=== PATIENT | male | born 1950 | race Caucasian/White ===

== ENCOUNTER 2018-07-09 12:18 | Inpatient (IN) | payer MEDICARE, SELFPAY ==
[2018-06-04 07:30] VITALS: BMI 25.2
[2018-07-09] VITALS (9 sets, daily range): BP systolic 121–169; BP diastolic 72–108; PULSE 68–105; RESP 18–19; TEMP 36–36.9; O2SAT 92–96; BMI 25.5; BMI 24.7
--- NOTE | 2018-07-09 12:34 | EKG12_ITS ---
Test Reason : CP ADMIT Blood Pressure : / mmHG Vent. Rate : 072 BPM Atrial Rate : 072 BPM P-R Int : 162 ms QRS Dur : 100 ms QT Int : 404 ms P-R-T Axes : 076 064 270 degrees QTc Int : 442 ms Normal sinus rhythm with sinus arrhythmia Left ventricular hypertrophy with repolarization abnormality Abnormal ECG When compared with ECG of 09-JUL-2018 12:35, MANUAL COMPARISON REQUIRED, DATA IS UNCONFIRMED Confirmed by LYNN BOBBY, LOKESH ([id number]), web content editor MARCIN THOMPSON ([id number]) on 07/13/2018 2:50:11 PM Referred By: My Curry Confirmed By:LOKESH BAILEY MD
[2018-07-09] MEDS: Aspirin 81 MG TAB.CHEW 324 MG PO (12:37)
--- NOTE | 2018-07-09 12:37 | RAD_ITS ---
STUDY: X-RAY CHEST REASON FOR EXAM: Male, 68 years old. Two-year history of shortness of breath. History of STEMI. TECHNIQUE: Single AP portable view of the chest. COMPARISON: Comparison is made with prior study dated May 31, 2017. FINDINGS: EKG electrodes are seen. Hyperinflation. There is no demonstrated pleural abnormality. Normal size heart. Normal mediastinum and earl. Normal visualized pulmonary arteries. Normal visualized aortic arch and descending thoracic aorta. Normal visualized thoracic spine. Status post ORIF of a left mid clavicular fracture. There is no demonstrated abnormality of the visualized soft tissue structures of the upper abdomen. RAD/Chest 1 View (Portable) IMPRESSION: Hyperinflation. Electronically Signed: Noel Claudio, at 13:14 EST , Service support ,
[2018-07-09 12:46] LABS: Absolute Lymphocyte Count 1.74 X10^3/ul (0.83-4.51); Absolute Neutrophil Count 9.3 X10^3/uL (2.0-7.7); Basophil# 0.03 X10^3/uL; Basophil% 0.3 % (0-1); Eosinophil# 0.01 X10^3/uL; Eosinophils% 0.1 % (0-5); Hematocrit 48.3 % (40-54); Hemoglobin 15.8 g/dl (13.0-16.5); Lymphocyte # 1.74 X10^3/ul (4.0); Lymphocyte % 14.5 % (19-41); Mean Corp Hgb Conc 32.7 g/gl (32-36); Mean Corpuscular Volume 91.7 fL (80-94); Mean Platelet Vol. 10.6 fl (6.2-12.0); Monocyte# 0.84 X10^3/uL; Neutrophil # 9.32 X10^3/uL (2.7-7.7); Neutrophil % 77.8 % (47-70); Platelet Count 206 K/mm3 (150-450); RBC Distribution Width CV 14.4 % (11.6-14.6); RBC Distribution Width SD 48.2 fl (35.1-43.9); Red Blood Count 5.27 M/mm3 (4.6-6.2)
[2018-07-09 12:49] LABS: POSITIVE COUNT NO; POSITIVE DIFFERENTIAL NO; POSITIVE MORPHOLOGY NO
[2018-07-09 13:12] LABS: Anion Gap 9 (5-15); BUN 11 mg/dL (7-18); BUN/Creat Ratio 10.4 RATIO (10-20); Calcium,Total 8.9 mg/dL (8.5-10.1); Chloride 107 mmol/L (98-107); Creatinine, Serum 1.06 mg/dL (0.70-1.30); EST Glomerular Filtration Rate 74 mL/min (>60); Est Glom Filt Rate - Afr Amer 89 mL/min (>60); Estimated Creatinine Clearance 68.87 ml/min; Glucose 78 mg/dL (74-106); Potassium 3.6 mmol/L (3.5-5.1); Sodium Level 143 mmol/L (136-145)
--- NOTE | 2018-07-09 14:46 | PCM.HP.STD ---
Problem List (1) Chest pain Status: Acute Qualifiers: Chest pain type: unspecified Qualified Code(s): R07.9 - Chest pain, unspecified (2) COPD (chronic obstructive pulmonary disease) Status: Suspected Qualifiers: COPD type: unspecified COPD Qualified Code(s): J44.9 - Chronic obstructive pulmonary disease, unspecified (3) Hypertension Status: Chronic Qualifiers: Hypertension type: essential hypertension Qualified Code(s): I10 - Essential (primary) hypertension (4) Tobacco abuse Status: Chronic History of Present Illness Date of Admission: 07/09/18 Chief Complaint: Chest pain, cough, dyspnea The patient is a 68 y/o M w/ PMHx: Chronic COPD Suspected, HTN, Hx UT, JESSICA not on treatment, Tobacco use who presents to the [facility] ED on 07/09/18 with history of nearing 2 months of sharp, stabbing, left-sided chest discomfort primarily into the shoulder and left upper extremity radiation as well rated 8-10 out of 10 when occurring with associated dyspnea primarily when he exerts himself with improvement with rest with resolution after 5-10 minutes with denied nausea, emesis, diaphoresis. He does state that he recently saw his orthopedic surgeon approximately 3 weeks prior at [facility] as he had a left collarbone trauma and has a plate and states that his surgeon felt this was likely nerve associated. Patient presented to his PCP for evaluation and EKG in office w/ inferior ST depression and thus referred to the ED as new since 08/2017. Work-up in the ED included T 96.8, HR 105, BP 169/108, RR 19, 95% on RA-->92% on 2L NC, CBC w/ WBC 12, Hgb 15.8, Plts 206 with L shift, unremarkable BMP, trop 0.038, CXR with chronic changes, EKG similar to PCP office without acute evidence of ischemia. In the ED patient administered ASA. Past Medical History Past Medical History (Chronic Problems): Chronic Problems (Last Reviewed 06/04/18 @ 07:31 by Candice Holguin) Tobacco dependence in remission (Chronic) Hypertension (Chronic) Tobacco abuse (Chronic) Medical History: Medical History (Last Reviewed 06/04/18 @ 07:31 by Candice Holguin) CAP (community acquired pneumonia) (Resolved) J18.9 Tobacco dependence in remission (Chronic) F17.201 COPD (chronic obstructive pulmonary disease) (Suspected) J44.9 Hypertension (Chronic) I10 Tobacco abuse (Chronic) Z72.0 Allergies bee venom protein (honey bee) Allergy (Verified 07/09/18 12:22) Anaphylaxis lactose Adverse Reaction (Verified 07/09/18 12:22) Other Home Medications: Ambulatory Orders Medication Instructions Recorded Cholecalciferol (VIT D3) [Vitamin 1,000 unit PO DAILY 07/09/18 D] Cyanocobalamin (Vitamin B-12) 1 tab PO DAILY 07/09/18 Meloxicam 15 mg PO PRN PRN 07/09/18 Multivitamin [Multiple Vitamins] 1 tab PO DAILY 07/09/18 Oxycodone HCl/Acetaminophen 1 - 2 tab PO Q4H PRN PRN 07/09/18 [Oxycodone-Acetaminophen 5-325] Vit C/E/Zn/Coppr/Lutein/Zeaxan 1 each PO DAILY 07/09/18 [Preservision Areds 2 Softgel] Surgical History: cataract, tonsillectomy, - - Left shoulder/bone surgery with hardware. Psychiatric History: No pertinent psych hx Lives: Spouse/ Significant Other Smoking Status: Current every day smoker - Still smoking at least 3-4 cigarettes daily. Tobacco Use: Cigarettes Alcohol: Occasional Drugs: None - *Family History Paternal History Items: Heart Disease Maternal History Items: Diabetes, Stroke Review of Systems Constitutional: Reports: Fatigue. Denies: Chills, Fever, Weight Change HEENT: Denies: Head Aches, Sinus Congestion, Sinus Drainage Cardiovascular: Reports: Chest Pain. Denies: Chest Pressure, Chest Tightness, Edema, Heaviness, Light Headedness, Orthopnea, Palpitations, Syncope Respiratory: Reports: Shortness of Breath, Shortness of breath upon exertion. Denies: Cough, Shortness of breath at rest, Sputum production Gastrointestinal: Denies: Abdominal Pain, Nausea, Vomiting Genitourinary: Denies: Dysuria Musculoskeletal: Reports: Arm Pain, Shoulder Pain. Denies: Joint Pain, Joint Tenderness Skin: Denies: Rash, Wounds Neurological: Denies: Numbness, Tingling, Focal weakness Psychiatric: Denies: Anxiety, Depression, Homicidal Ideations, Suicidal Ideations Hematologic/ Lymphatic: Denies: Easy Bruising, Easy Bleeding VTE Information - Inpt Only VTE Present on Admission: No VTE Mechan Device Prophylaxis: SCD's VTE Pharm Prophylaxis ordered?: Yes Patient Problems: Active and Suspected Problems (Last Reviewed 06/04/18 @ 07:31 by Candice Holguin) Chest pain (Acute) Subjective: Seated upright in ED bed, no acute distress, mildly cantankerous, denies any current chest discomfort or dyspnea. Objective: Physical Examination: General: awake, alert, oriented x 3 and cooperative, seated upright in the ED bed in no apparent distress but denies any current chest discomfort or dyspnea. Skin: normal color, turgor, no icterus, cyanosis. HEENT: AT/NC, EOMI, PERRLA, MMM, no carotid bruits or JVD noted. Lungs: CTA bilaterally, moderate effort, moderately decrease BL bases, no rales, ronchi or wheezing. Heart: Regular rate and rhythm; no gallop, rub audible no reproducible discomfort with palpation. Abdomen: soft, NTTP, ND, normal BS, no HSM. Extremities: no cyanosis, clubbing, or edema. Neurological: patient awake, alert, oriented x 3; cognitive function intact; pupils equally reactive to light and accomodation; cranial nerves II-XII grossly normal, moving all 4 extremities, no focal deficits, strength mildly globally decreased secondary to acute presentation. Psychiatric: affect appears mildly irritated, no acute evidence of depressive or anxiety feelings. - Physical Exam Vital Signs Temp Pulse Resp BP Pulse Ox 96.8 F L 105 H 19 H 169/108 H 92 07/09/18 12:19 07/09/18 12:19 07/09/18 12:19 07/09/18 12:07/09/18 12:39 Oxygen Flow Rate (L/min) 2 Oxygen Delivery Method Nasal Cannula Weight: 177 lb 14.609 oz Body Mass Index (BMI) 25.5 Laboratory Tests Past 24 Hrs 07/09/18 07/09/18 12:30 12:30 WBC 12.0 H RBC 5.27 Hgb 15.8 Hct 48.3 MCV 91.7 MCH 30.0 MCHC 32.7 RDW 14.4 RDW Differential 48.2 H Plt Count 206 MPV 10.6 Immature Gran % (Auto) 0.300 Neut % (Auto) 77.8 H Lymph % (Auto) 14.5 L Cannon % (Auto) 7.0 Eos % (Auto) 0.1 Baso % (Auto) 0.3 Absolute Neuts (auto) 9.3 H Absolute Lymphs (auto) 1.74 Total Counted Not Reportable Sodium 143 Potassium 3.6 Chloride 107 Carbon Dioxide 27.0 Anion Gap 9 BUN 11 Creatinine 1.06 Estim Creat Clear Calc 68.87 Est GFR (MDRD) Af Amer 89 Est GFR (MDRD) Non-Af 74 BUN/Creatinine Ratio 10.4 Glucose 78 Calcium 8.9 Troponin I 0.038 Assessment/Plan All Active Problems (Last Reviewed 06/04/18 @ 07:31 by Candice Holguin) Chest pain (Acute) CAP (community acquired pneumonia) (Resolved) The patient is a 68 y/o M w/ PMHx: Chronic COPD Suspected, HTN, Hx UT, JESSICA not on treatment, Tobacco use who presents to the [facility] ED on 07/09/18 with history of nearing 2 months of sharp, stabbing, left-sided chest discomfort primarily into the shoulder and left upper extremity radiation as well rated 8-10 out of 10 when occurring with associated dyspnea primarily when he exerts himself with improvement with rest with resolution after 5-10 minutes with denied nausea, emesis, diaphoresis. (1) Chest Pain: Lower suspicion for cardiac etiology, recent evaluation per Orthopedic who noted likely related to L shoulder/collar bone surgery w/ harware and nerve pain/damage. Work-up in the ED included T 96.8, HR 105, BP 169/108, RR 19, 95% on RA-->92% on 2L NC, CBC w/ WBC 12, Hgb 15.8, Plts 206 with L shift, unremarkable BMP, trop 0.038, CXR with chronic changes, EKG similar to PCP office without acute evidence of ischemia. In the ED patient administered ASA. To be cautious, will admit to PCU, place on a monitored bed to assure no acute myocardial infarction with serial cardiac enzymes and EKGs. If cardiac enzymes and EKGs remain unremarkable we will proceed with a.m. stress testing. ASA, NG, morphine. FLP in AM. Mag pending. (2) ? Hx UT: Noted in prior history, maintain on asa, not on BP regimen, as noted defer BB given underlying ? pulmonary disease with addition ACEI as noted, FLP in AM, mag pending. (3) Hypertension: Not on regimen, given suspected underlying pulmonary disease we will add low-dose lisinopril and hydrochlorthiazide, PRN hydralazine. (4) Hyperlipidemia: Noted in prior history, denies, notes recently assessed and was appropriate, will add high dose statin given presentation pending AM FLP. (5) Tobacco Abuse: Encouraged cessation, inpatient consultation per RT, NR if desired. (6) ? JESSICA: Noted in history, not on CPAP. (7) DVT Prophylaxis: SCDs, lovenox. Code Visit OBSV E&M: 46053 Initial observation care L3
--- NOTE | 2018-07-09 14:50 | HP.PCM_ITS ---
Problem List (1) Chest pain Status: Acute Qualifiers: Chest pain type: unspecified Qualified Code(s): R07.9 - Chest pain, unspecified (2) COPD (chronic obstructive pulmonary disease) Status: Suspected Qualifiers: COPD type: unspecified COPD Qualified Code(s): J44.9 - Chronic obstructive pulmonary disease, unspecified (3) Hypertension Status: Chronic Qualifiers: Hypertension type: essential hypertension Qualified Code(s): I10 - Essential (primary) hypertension (4) Tobacco abuse Status: Chronic History of Present Illness Date of Admission: 07/09/18 Chief Complaint: Chest pain, cough, dyspnea The patient is a 68 y/o M w/ PMHx: Chronic COPD Suspected, HTN, Hx VA, JESSICA not on treatment, Tobacco use who presents to the [facility] ED on 07/09/18 with history of nearing 2 months of sharp, stabbing, left-sided chest discomfort primarily into the shoulder and left upper extremity radiation as well rated 8-10 out of 10 when occurring with associated dyspnea primarily when he exerts himself with improvement with rest with resolution after 5-10 minutes with denied nausea, emesis, diaphoresis. He does state that he recently saw his orthopedic surgeon approximately 3 weeks prior at [facility] as he had a left collarbone trauma and has a plate and states that his surgeon felt this was likely nerve associated. Patient presented to his PCP for evaluation and EKG in office w/ inferior ST depression and thus referred to the ED as new since 08/2017. Work-up in the ED included T 96.8, HR 105, BP 169/108, RR 19, 95% on RA-->92% on 2L NC, CBC w/ WBC 12, Hgb 15.8, Plts 206 with L shift, unremarkable BMP, trop 0.038, CXR with chronic changes, EKG similar to PCP office without acute evidence of ischemia. In the ED patient administered ASA. Past Medical History Past Medical History (Chronic Problems): Chronic Problems (Last Reviewed 06/04/18 @ 07:31 by Candice Holguin) Tobacco dependence in remission (Chronic) Hypertension (Chronic) Tobacco abuse (Chronic) Medical History: Medical History (Last Reviewed 06/04/18 @ 07:31 by Candice Holguin) CAP (community acquired pneumonia) (Resolved) J18.9 Tobacco dependence in remission (Chronic) F17.201 COPD (chronic obstructive pulmonary disease) (Suspected) J44.9 Hypertension (Chronic) I10 Tobacco abuse (Chronic) Z72.0 Allergies bee venom protein (honey bee) Allergy (Verified 07/09/18 12:22) Anaphylaxis lactose Adverse Reaction (Verified 07/09/18 12:22) Other Home Medications: Ambulatory Orders Medication Instructions Recorded Cholecalciferol (VIT D3) [Vitamin 1,000 unit PO DAILY 07/09/18 D] Cyanocobalamin (Vitamin B-12) 1 tab PO DAILY 07/09/18 Meloxicam 15 mg PO PRN PRN 07/09/18 Multivitamin [Multiple Vitamins] 1 tab PO DAILY 07/09/18 Oxycodone HCl/Acetaminophen 1 - 2 tab PO Q4H PRN PRN 07/09/18 [Oxycodone-Acetaminophen 5-325] Vit C/E/Zn/Coppr/Lutein/Zeaxan 1 each PO DAILY 07/09/18 [Preservision Areds 2 Softgel] Surgical History: cataract, tonsillectomy, - - Left shoulder/bone surgery with hardware. Psychiatric History: No pertinent psych hx Lives: Spouse/ Significant Other Smoking Status: Current every day smoker - Still smoking at least 3-4 cigarettes daily. Tobacco Use: Cigarettes Alcohol: Occasional Drugs: None - *Family History Paternal History Items: Heart Disease Maternal History Items: Diabetes, Stroke Review of Systems Constitutional: Reports: Fatigue. Denies: Chills, Fever, Weight Change HEENT: Denies: Head Aches, Sinus Congestion, Sinus Drainage Cardiovascular: Reports: Chest Pain. Denies: Chest Pressure, Chest Tightness, Edema, Heaviness, Light Headedness, Orthopnea, Palpitations, Syncope Respiratory: Reports: Shortness of Breath, Shortness of breath upon exertion. Denies: Cough, Shortness of breath at rest, Sputum production Gastrointestinal: Denies: Abdominal Pain, Nausea, Vomiting Genitourinary: Denies: Dysuria Musculoskeletal: Reports: Arm Pain, Shoulder Pain. Denies: Joint Pain, Joint Tenderness Skin: Denies: Rash, Wounds Neurological: Denies: Numbness, Tingling, Focal weakness Psychiatric: Denies: Anxiety, Depression, Homicidal Ideations, Suicidal Polly ations Hematologic/ Lymphatic: Denies: Easy Bruising, Easy Bleeding VTE Information - Inpt Only VTE Present on Admission: No VTE Mechan Device Prophylaxis: SCD's VTE Pharm Prophylaxis ordered?: Yes Patient Problems: Active and Suspected Problems (Last Reviewed 06/04/18 @ 07:31 by Candice Holguin) Chest pain (Acute) Subjective: Seated upright in ED bed, no acute distress, mildly cantankerous, denies any current chest discomfort or dyspnea. Objective: Physical Examination: General: awake, alert, oriented x 3 and cooperative, seated upright in the ED bed in no apparent distress but denies any current chest discomfort or dyspnea. Skin: normal color, turgor, no icterus, cyanosis. HEENT: AT/NC, EOMI, PERRLA, MMM, no carotid bruits or JVD noted. Lungs: CTA bilaterally, moderate effort, moderately decrease BL bases, no rales, ronchi or wheezing. Heart: Regular rate and rhythm; no gallop, rub audible no reproducible discomfort with palpation. Abdomen: soft, NTTP, ND, normal BS, no HSM. Extremities: no cyanosis, clubbing, or edema. Neurological: patient awake, alert, oriented x 3; cognitive function intact; pupils equally reactive to light and accomodation; cranial nerves II-XII grossly normal, moving all 4 extremities, no focal deficits, strength mildly globally decreased secondary to acute presentation. Psychiatric: affect appears mildly irritated, no acute evidence of depressive or anxiety feelings. - Physical Exam Vital Signs Temp Pulse Resp BP Pulse Ox 96.8 F L 105 H 19 H 169/108 H 92 07/09/18 12:19 07/09/18 12:19 07/09/18 12:07/09/18 12:07/09/18 12:39 Oxygen Flow Rate (L/min) 2 Oxygen Delivery Method Nasal Cannula Weight: 177 lb 14.609 oz Body Mass Index (BMI) 25.5 Laboratory Tests Past 24 Hrs 07/09/18 07/09/18 12:30 12:30 WBC 12.0 H RBC 5.27 Hgb 15.8 Hct 48.3 MCV 91.7 MCH 30.0 MCHC 32.7 RDW 14.4 RDW Differential 48.2 H Plt Count 206 MPV 10.6 Immature Gran % (Auto) 0.300 Neut % (Auto) 77.8 H Lymph % (Auto) 14.5 L [place] % (Auto) 7.0 Eos % (Auto) 0.1 Baso % (Auto) 0.3 Absolute Neuts (auto) 9.3 H Absolute Lymphs (auto) 1.74 Total Counted Not Reportable Sodium 143 Potassium 3.6 Chloride 107 Carbon Dioxide 27.0 Anion Gap 9 BUN 11 Creatinine 1.06 Estim Creat Clear Calc 68.87 Est GFR (MDRD) Af Amer 89 Est GFR (MDRD) Non-Af 74 BUN/Creatinine Ratio 10.4 Glucose 78 Calcium 8.9 Troponin I 0.038 Assessment/Plan All Active Problems (Last Reviewed 06/04/18 @ 07:31 by Candice Holguin) Chest pain (Acute) CAP (community acquired pneumonia) (Resolved) The patient is a 68 y/o M w/ PMHx: Chronic COPD Suspected, HTN, Hx VA, JESSICA not on treatment, Tobacco use who presents to the [facility] ED on 07/09/18 with history of nearing 2 months of sharp, stabbing, left-sided chest discomfort primarily into the shoulder and left upper extremity radiation as well rated 8-10 out of 10 when occurring with associated dyspnea primarily when he exerts himself with improvement with rest with resolution after 5-10 minutes with denied nausea, emesis, diaphoresis. (1) Chest Pain: Lower suspicion for cardiac etiology, recent evaluation per Orthopedic who noted likely related to L shoulder/collar bone surgery w/ harware and nerve pain/damage. Work-up in the ED included T 96.8, HR 105, BP 169/108, RR 19, 95% on RA-->92% on 2L NC, CBC w/ WBC 12, Hgb 15.8, Plts 206 with L shift, unremarkable BMP, trop 0.038, CXR with chronic changes, EKG similar to PCP office without acute evidence of ischemia. In the ED patient administered ASA. To be cautious, will admit to PCU, place on a monitored bed to assure no acute myocardial infarction with serial cardiac enzymes and EKGs. If cardiac enzymes and EKGs remain unremarkable we will proceed with a.m. stress testing. ASA, NG, morphine. FLP in AM. Mag pending. (2) ? Hx VA: Noted in prior history, maintain on asa, not on BP regimen, as noted defer BB given underlying ? pulmonary disease with addition ACEI as noted, FLP in AM, mag pending. (3) Hypertension: Not on regimen, given suspected underlying pulmonary disease we will add low-dose lisinopril and hydrochlorthiazide, PRN hydralazine. (4) Hyperlipidemia: Noted in prior history, denies, notes recently assessed and was appropriate, will add high dose statin given presentation pending AM FLP. (5) Tobacco Abuse: Encouraged cessation, inpatient consultation per RT, NR if desired. (6) ? JESSICA: Noted in history, not on CPAP. (7) DVT Prophylaxis: SCDs, lovenox. Code Visit OBSV E&M: 72250 Initial observation care L3
--- NOTE | 2018-07-09 15:12 | ED.VISSUMM ---
- ER Visit Summary Date of Service: 07/09/18 Chief Complaint: Chest pain History of Present Illness: The patient is a 68 M left-sided chest pain that radiates into his left shoulder. Associated with shortness of breath. He has the pain when he walks. The pain lasts about 10-15 minutes and gets better with rest. This has been an ongoing issue for months. He saw his doctor today and was found to have inferior EKG changes and was referred to the ED as these were new findings. Patient has a history of hypertension, hyperlipidemia, and COPD. Denies any fevers or sputum. He is a smoker. Physical Examination: Hypertensive but otherwise vitals unremarkable. Afebrile. Alert and oriented. No acute distress. HEENT exam unremarkable. Heart regular rate and rhythm. Lungs clear. Extremities nontender with no edema. Skin normal in color without diaphoresis or pallor. Patient is alert and oriented. Test Results: EKG showed sinus rhythm at a rate of 92. Nonspecific ST changes. No sign of acute ischemia or infarction pattern. White count 12.0 but otherwise CBC normal. Metabolic panel normal. Troponin normal. Chest x-ray showed hyperinflation. Emergency Department Course and Treatment: Patient was treated with aspirin while awaiting results. He was placed on a monitor. His workup was as above. His heart score is 5. I am concerned given his chest pain with exertion and EKG changes. We spoke with the hospitalist who will admit for further care. Treatment Plan: As above Disposition: Admission Impression: 1. Chest pain This note was generated with [employer] dictation software. It may contain incorrect words, spelling, and punctuation that were not noted in review of the chart prior to signing ED Disposition - Plan for ED Patient: Referrals: Silverio Ponce PA [Primary Care Provider] -
--- NOTE | 2018-07-09 15:28 | CASEMGMT ---
RN CM Assessment Introduced role of RN CM to patient. Patient is alert, oriented and able to participate in RN CM Assessment. Care providers, pharmacy, and demographics verified. Presentation: Admitted for CP. CC: CP, SOB, Cough. Seen by PCP and referred here to R/o NC. PCP: Dr Efren Ponce Specialists: Pulm- Dr Derian Ryan, Bone Surgeon- Dr Rouse Preferred Pharmacy: [facility] Insurance: [employer] [facility] Prescription Benefit: Yes LNOK: Elisa Holder Living Arrangements: Retired, lives with in a SS Home, 2 steps to enter. Independent with ambulation and ADL's. just had knee surgery x1 week ago. Home alone, states no family/friend support and voiced concern, appeared upset if needing to stay. Asking for phone and something to eat. Type Disk Quality Control Supervisor came after CM discussion, upon re-entering to provide phone to patient hosiery mender told this CM that ppl from [facility] were going to go help and look after her, patient seemed more at ease, staff aware patient would like to eat. Transportation: Patient drives, plans to drive self on [place]. DME: Nebulizer, CPAP. No preference on DME Company. HHC: Denies past, no preference on Agency. SNF: Denies past, No preference on Facility. DC PLAN: Home with no anticipated needs identified. KEITH Cheng
--- NOTE | 2018-07-09 16:05 | EKG12_ITS ---
Test Reason : Blood Pressure : / mmHG Vent. Rate : 092 BPM Atrial Rate : 092 BPM P-R Int : 130 ms QRS Dur : 102 ms QT Int : 372 ms P-R-T Axes : 070 064 258 degrees QTc Int : 460 ms Normal sinus rhythm Left ventricular hypertrophy with repolarization abnormality Abnormal ECG Confirmed by LYNN BOBBY, LOKESH ([id number]), non linear editor MARCIN THOMPSON ([id number]) on 07/13/2018 2:02:50 PM Referred By: My Curry Confirmed By:LOKESH BAILEY MD
[2018-07-09 17:10] LABS: Magnesium 2.4 mg/dL (1.6-2.6)
[2018-07-09] MEDS: 0.9% Normal Saline 1,000 ML 100 ML IV (17:51)
[2018-07-09] MEDS: hydroCHLOROthiazide 12.5mg 12.5 MG PO (17:51)
[2018-07-09] MEDS: Lisinopril 10 MG Tablet PO (17:51)
[2018-07-09] MEDS: Atorvastatin Calcium 80 MG Tablet PO (23:28)
[2018-07-09] MEDS: Famotidine 20 MG Tablet PO (23:29)
[2018-07-10] VITALS (24 sets, daily range): BP systolic 114–173; BP diastolic 67–96; PULSE 47–80; RESP 10–19; TEMP 36.4–36.8; O2SAT 94–100; BMI 24.7
[2018-07-10] MEDS: 0.9% Normal Saline 1,000 ML 100 ML IV (02:42)
--- NOTE | 2018-07-10 05:55 | EKG12_ITS ---
Test Reason : AM EKG Blood Pressure : / mmHG Vent. Rate : 059 BPM Atrial Rate : 059 BPM P-R Int : 154 ms QRS Dur : 102 ms QT Int : 478 ms P-R-T Axes : 073 072 -87 degrees QTc Int : 473 ms Sinus bradycardia Left ventricular hypertrophy with repolarization abnormality Abnormal ECG When compared with ECG of 09-JUL-2018 17:11, MANUAL COMPARISON REQUIRED, DATA IS UNCONFIRMED Confirmed by LYNN BOBBY, LOKESH ([id number]), telegraph editor MARCIN THOMPSON ([id number]) on 07/13/2018 2:43:41 PM Referred By: My Curry Confirmed By:LOKESH BAILEY MD
[2018-07-10 06:10] LABS: Hematocrit 44.4 % (40-54); Hemoglobin 14.6 g/dl (13.0-16.5); Mean Corp Hgb Conc 32.9 g/gl (32-36); Mean Corpuscular Volume 91.2 fL (80-94); Mean Platelet Vol. 10.9 fl (6.2-12.0); Platelet Count 176 K/mm3 (150-450); RBC Distribution Width CV 14.5 % (11.6-14.6); RBC Distribution Width SD 47.6 fl (35.1-43.9); Red Blood Count 4.87 M/mm3 (4.6-6.2)
[2018-07-10 06:11] LABS: Scan Indicated on CBC? Y/N NO
[2018-07-10 06:14] LABS: International Normalized Ratio 1.1; Prothrombin Time (Protime)PT. 13.7 SECONDS (11.7-14.9)
[2018-07-10 06:15] LABS: Partial Thromboplast Time 38.3 Seconds (24.1-36.2)
[2018-07-10 06:22] LABS: ALB/GLOB Ratio 0.9 RATIO (0.9-2.4); AST(SGOT) 11 U/L (15-37); Alanine Aminotransfer ALT/SGPT 14 U/L (16-61); Albumin, Serum 2.8 g/dL (3.2-5.0); Alkaline Phosphatase 79 U/L (45-117); Anion Gap 8 (5-15); BUN 14 mg/dL (7-18); BUN/Creat Ratio 17.2 RATIO (10-20); Chloride 110 mmol/L (98-107); Cholesterol 141 mg/dL (200); Creatinine, Serum 0.81 mg/dL (0.70-1.30); EST Glomerular Filtration Rate 100 mL/min (>60); Est Glom Filt Rate - Afr Amer 122 mL/min (>60); Estimated Creatinine Clearance 92.96 ml/min; Globulin 3.1 g/dL (2.2-4.2); Glucose 88 mg/dL (74-106); High Density Lipoprotein 55 mg/dL; Potassium 3.7 mmol/L (3.5-5.1); Protein, Total 5.9 g/dL (6.4-8.2); Sodium Level 144 mmol/L (136-145); Triglycerides 76 mg/dL; Very Low Density Lipoprotein 15 mg/dL (5-40)
[2018-07-10] MEDS: Aspirin 81 MG TAB.CHEW PO (06:22)
--- NOTE | 2018-07-10 09:55 | STRESSREP ---
Stress Test Report Exercise myocardial perfusion stress test. 68-year-old male with a history of hypertension and mildly abnormal cardiac enzymes. Stress protocol: The patient exercised according to regular Thomas protocol for total duration of 6 minutes patient completing stage II of the Thomas protocol the maximum heart rate attained was 116 bpm. 76% maximum predicted heart rate the maximum workload was 7 metabolic equivalents. At rest there were downsloping ST changes noted in leads II, III and aVF with worsening ST depression of approximately 3 mm. No chest pain was noted resting blood pressure was 122/80 mmHg with a peak blood pressure 172/76mmhg of mercury. Patient expressed mild chest discomfort. Significant dyspnea was noted. Myocardial perfusion protocol. 11.9 mCi of technetium 99m sestamibi was injected at rest. Patient exercised according to regular Thomas protocol for 6 minutes at peak exercise 34.4 mCi of technetium 99m sestamibi was injected stress images were obtained stress and rest images were reconstructed and compared in the short axis vertical long horizontal long axis. Gated images were also obtained. Perfusion SPECT analysis: Review of the stress images demonstrate normal uptake of tracer noted in the septum anterior wall and lateral wall. There is significant perfusion reduction noted in the inferior wall extending to the inferior apical wall. The rest images demonstrate improvement in this area suggestive of inferior ischemia. Previous inferior infarct cannot be completely excluded. Gated SPECT analysis: Gated ejection fraction is noted to be 52% with inferior hypokinesis present. Conclusion: Abnormal exercise myocardial perfusion stress test with mild to moderate inferior ischemia. Preserved ejection fraction with segmental wall motion abnormality. Previous inferior infarct cannot be completely excluded.
--- NOTE | 2018-07-10 10:19 | PCM.CONS.C ---
Reason for Consult Date of Consultation: 07/10/18 Reason for Consultation: Chest pain and abnormal stress test History of Present Illness: The patient is a 68 year old M with no previous past medical history who presented to the emergency room with sharp stabbing left discomfort radiating to his left shoulder. He had had surgery at the [facility] due to an injured collarbone approximately a month ago. It was thought that the pain he was having was secondary to this. He was however seen in his primary physician's office and was noted to have abnormal EKG with downsloping ST depressions noted in the inferior leads. In the emergency room he was evaluated cardiac enzymes were obtained which were mildly abnormal he was admitted to the telemetry care unit and underwent stress testing this morning where he exercised [address] depression noted and evidence of inferior ischemia in a probably previously infarcted zone as well. Due to the above it was recommended that we see him for further evaluation and management. [] Past Medical History Allergies/Adverse Reactions: Allergies bee venom protein (honey bee) Allergy (Verified 07/09/18 12:22) Anaphylaxis lactose Adverse Reaction (Verified 07/09/18 12:22) Other Home Medications: Ambulatory Orders Medication Instructions Recorded Cholecalciferol (VIT D3) [Vitamin 1,000 unit PO DAILY 07/09/18 D] Cyanocobalamin (Vitamin B-12) 1 tab PO DAILY 07/09/18 Meloxicam 15 mg PO PRN PRN 07/09/18 Multivitamin [Multiple Vitamins] 1 tab PO DAILY 07/09/18 Oxycodone HCl/Acetaminophen 1 - 2 tab PO Q4H PRN PRN 07/09/18 [Oxycodone-Acetaminophen 5-325] Vit C/E/Zn/Coppr/Lutein/Zeaxan 1 each PO DAILY 07/09/18 [Preservision Areds 2 Softgel] Past Medical History (Chronic Problems): Chronic Problems (Last Reviewed 06/04/18 @ 07:31 by Candice Holguin) Tobacco dependence in remission (Chronic) Hypertension (Chronic) Tobacco abuse (Chronic) Surgical History: cataract, tonsillectomy, - - Left shoulder/bone surgery with hardware. Psychiatric History: No pertinent psych hx - *Family History Paternal History Items: Heart Disease Maternal History Items: Diabetes, Stroke Lives: Spouse/ Significant Other Smoking Status: Current every day smoker Tobacco Use: Cigarettes Alcohol: Occasional Drugs: None Review of Systems - Review of Systems General: Denies: Fever, Night Sweats, Fatigue HEENT: Denies: Vision Change Cardiovascular: Reports: Chest Discomfort. Denies: Shortness of Breath, Orthopnea, PND, Peripheral Edema, Palpitations, Lightheadedness, Dizziness, Near Syncope, Syncope Respiratory: Denies: Cough, Sputum Production, Hemoptysis Gastrointestinal: Denies: Hematemesis, Hematochezia, Melena Genitourinary: Denies: Dysuria, Hematuria Muscoloskeletal: Denies: Myalgias Skin: Denies: Rash Neurological: Denies: Dizziness Psychiatric: Denies: Anxiety Endocrine: Denies: Unexplained Weight Loss Hematologic/ Lymphatic: Denies: Anemia Subjectve: Pleasant man in no distress Objective: Vital Signs Temp Pulse Resp BP Pulse Ox 97.8 F 63 18 144/79 H 95 07/10/18 06:19 07/10/18 06:19 07/10/18 06:19 07/10/18 06:19 07/10/18 06:19 Oxygen Flow Rate (L/min) 2 Oxygen Delivery Method Room Air Weight: 177 lb Body Mass Index (BMI) 24.7 Intake and Output for Last 24 Hours 07/08/18 07/09/18 07/10/18 23:59 23:59 23:59 Intake Total 1091 / 1091 450 / 450 Balance 1091 / 1091 450 / 450 General: Awake, Alert, Oriented x 3 HEENT: PERRL, EOMI, Sclera Non Icteric Neck: Supple, Good ROM, No Lymph Node Enlargement Lungs: Clear to auscultation Cardiovascular: Regular Rhythm, Normal S1, Normal S2, No Murmurs, No Rubs, No Gallops Vascular: No Carotid Bruits, Normal Femoral Pulses, Normal Radial Pulses, Normal Dorsalis Pedal Pulse, Normal Posterior Tibial Pulses Abdomen: Bowel Sounds Present, Soft, Non Tender, No HSM, No Organomegaly Extremities: No Cyanosis, No Clubbing, No edema Neurological: No Focal Motor or Sensory Deficit 07/09/18 12:30: WBC 12.0 H, RBC 5.27, Hgb 15.8, Hct 48.3, MCV 91.7, MCH 30.0, MCHC 32.7, RDW 14.4, RDW Differential 48.2 H, Plt Count 206, MPV 10.6, Immature Gran % (Auto) 0.300, Neut % (Auto) 77.8 H, Lymph % (Auto) 14.5 L, Creek % (Auto) 7.0, Eos % (Auto) 0.1, Baso % (Auto) 0.3, Absolute Neuts (auto) 9.3 H, Total Counted Not Reportable 07/09/18 12:30: Sodium 143, Potassium 3.6, Chloride 107, Carbon Dioxide 27.0, Anion Gap 9, BUN 11, Creatinine 1.06, Est GFR (MDRD) Af Amer 89, Est GFR (MDRD) Non-Af 74, BUN/Creatinine Ratio 10.4, Glucose 78, Calcium 8.9, Troponin I 0.038 07/09/18 16:21: Troponin I 0.043 07/09/18 16:44: Magnesium 2.4 07/09/18 20:44: Troponin I 0.044 07/10/18 05:35: WBC 8.0, RBC 4.87, Hgb 14.6, Hct 44.4, MCV 91.2, MCH 30.0, MCHC 32.9, RDW 14.5, RDW Differential 47.6 H, Plt Count 176, MPV 10.9 07/10/18 05:35: Sodium 144, Potassium 3.7, Chloride 110 H, Carbon Dioxide 26.0, Anion Gap 8, BUN 14, Creatinine 0.81, Est GFR (MDRD) Af Amer 122, Est GFR (MDRD) Non-Af 100, BUN/Creatinine Ratio 17.2, Glucose 88, Calcium 8.0 L, Total Bilirubin 0.70, Triglycerides 76, Cholesterol 141, LDL Cholesterol 71, VLDL Cholesterol 15, HDL Cholesterol 55 07/10/18 05:35: PT 13.7, INR 1.1, APTT 38.3 H Rhythm: EKG: ECHO: Stress Test: Cardiac Cath: PCI: CT Surgery: Holter monitor: EPS: PPM: CXR: Chest CT Scan: Assessment/Plan 1. Atypical chest pain with abnormal myocardial perfusion stress test He presents with the above. He did have baseline EKG changes and now has an abnormal stress test. My recommendation is that we proceed with a cardiac catheterization for further risk stratification. I discussed the above with him the risk benefits alternatives he understands and agrees to proceed. Depending on the findings further recommendations will be made. 2. Hypertension Would treat aggressively. Further recommendations be made after the cardiac catheterization. In the meantime I agree with KAE inhibitor and beta-becca. 3. Lipid status His lipid status actually appears to be remarkably good. We will continue this. Thank you for allowing me to participate in the care of your patient. Please don't hesitate to call if any issues arise Addendum: Cardiac catheterization today demonstrated mild left main coronary artery disease, Mild left anterior descending artery stenosis. Left circumflex artery nondominant with mild disease and left to right collaterals. Dominant right coronary artery with high-grade 95% mid segment stenosis Mildly depressed left ventricular ejection fraction estimated at 50% with mild inferior hypokinesis. Based on the above angiographic findings the patient will be considered for angioplasty of the right coronary artery.
--- NOTE | 2018-07-10 10:24 | CON.PCM_ITS ---
Reason for Consult Date of Consultation: 07/10/18 Reason for Consultation: Chest pain and abnormal stress test History of Present Illness: The patient is a 68 year old M with no previous past medical history who presented to the emergency room with sharp stabbing left discomfort radiating to his left shoulder. He had had surgery at the [facility] due to an injured collarbone approximately a month ago. It was thought that the pain he was having was secondary to this. He was however seen in his primary physician's office and was noted to have abnormal EKG with downsloping ST depressions noted in the inferior leads. In the emergency room he was evaluated cardiac enzymes were obtained which were mildly abnormal he was admitted to the telemetry care unit and underwent stress testing this morning where he exercised [address] depression noted and evidence of inferior ischemia in a probably previously infarcted zone as well. Due to the above it was recommended that we see him for further evaluation and management. [] Past Medical History Allergies/Adverse Reactions: Allergies bee venom protein (honey bee) Allergy (Verified 07/09/18 12:22) Anaphylaxis lactose Adverse Reaction (Verified 07/09/18 12:22) Other Home Medications: Ambulatory Orders Medication Instructions Recorded Cholecalciferol (VIT D3) [Vitamin 1,000 unit PO DAILY 07/09/18 D] Cyanocobalamin (Vitamin B-12) 1 tab PO DAILY 07/09/18 Meloxicam 15 mg PO PRN PRN 07/09/18 Multivitamin [Multiple Vitamins] 1 tab PO DAILY 07/09/18 Oxycodone HCl/Acetaminophen 1 - 2 tab PO Q4H PRN PRN 07/09/18 [Oxycodone-Acetaminophen 5-325] Vit C/E/Zn/Coppr/Lutein/Zeaxan 1 each PO DAILY 07/09/18 [Preservision Areds 2 Softgel] Past Medical History (Chronic Problems): Chronic Problems (Last Reviewed 06/04/18 @ 07:31 by Candice Holguin) Tobacco dependence in remission (Chronic) Hypertension (Chronic) Tobacco abuse (Chronic) Surgical History: cataract, tonsillectomy, - - Left shoulder/bone surgery with hardware. Psychiatric History: No pertinent psych hx - *Family History Paternal History Items: Heart Disease Maternal History Items: Diabetes, Stroke Lives: Spouse/ Significant Other Smoking Status: Current every day smoker Tobacco Use: Cigarettes Alcohol: Occasional Drugs: None Review of Systems - Review of Systems General: Denies: Fever, Night Sweats, Fatigue HEENT: Denies: Vision Change Cardiovascular: Reports: Chest Discomfort. Denies: Shortness of Breath, Orthopnea, PND, Peripheral Edema, Palpitations, Lightheadedness, Dizziness, Near Syncope, Syncope Respiratory: Denies: Cough, Sputum Production, Hemoptysis Gastrointestinal: Denies: Hematemesis, Hematochezia, Melena Genitourinary: Denies: Dysuria, Hematuria Muscoloskeletal: Denies: Myalgias Skin: Denies: Rash Neurological: Denies: Dizziness Psychiatric: Denies: Anxiety Endocrine: Denies: Unexplained Weight Loss Hematologic/ Lymphatic: Denies: Anemia Subjectve: Pleasant man in no distress Objective: Vital Signs Temp Pulse Resp BP Pulse Ox 97.8 F 63 18 144/79 H 95 07/10/18 06:19 07/10/18 06:19 07/10/18 06:19 07/10/18 06:19 07/10/18 06:19 Oxygen Flow Rate (L/min) 2 Oxygen Delivery Method Room Air Weight: 177 lb Body Mass Index (BMI) 24.7 Intake and Output for Last 24 Hours 07/08/18 07/09/18 07/10/18 23:59 23:59 23:59 Intake Total 1091 / 1091 450 / 450 Balance 1091 / 1091 450 / 450 General: Awake, Alert, Oriented x 3 HEENT: PERRL, EOMI, Sclera Non Icteric Neck: Supple, Good ROM, No Lymph Node Enlargement Lungs: Clear to auscultation Cardiovascular: Regular Rhythm, Normal S1, Normal S2, No Murmurs, No Rubs, No Gallops Vascular: No Carotid Bruits, Normal Femoral Pulses, Normal Radial Pulses, Normal Dorsalis Pedal Pulse, Normal Posterior Tibial Pulses Abdomen: Bowel Sounds Present, Soft, Non Tender, No HSM, No Organomegaly Extremities: No Cyanosis, No Clubbing, No edema Neurological: No Focal Motor or Sensory Deficit 07/09/18 12:30: WBC 12.0 H, RBC 5.27, Hgb 15.8, Hct 48.3, MCV 91.7, MCH 30.0, MCHC 32.7, RDW 14.4, RDW Differential 48.2 H, Plt Count 206, MPV 10.6, Immature Gran % (Auto) 0.300, Neut % (Auto) 77.8 H, Lymph % (Auto) 14.5 L, Todd % (Auto) 7.0, Eos % (Auto) 0.1, Baso % (Auto) 0.3, Absolute Neuts (auto) 9.3 H, Total Counted Not Reportable 07/09/18 12:30: Sodium 143, Potassium 3.6, Chloride 107, Carbon Dioxide 27.0, Anion Gap 9, BUN 11, Creatinine 1.06, Est GFR (MDRD) Af Amer 89, Est GFR (MDRD) Non-Af 74, BUN/Creatinine Ratio 10.4, Glucose 78, Calcium 8.9, Troponin I 0.038 07/09/18 16:21: Troponin I 0.043 07/09/18 16:44: Magnesium 2.4 07/09/18 20:44: Troponin I 0.044 07/10/18 05:35: WBC 8.0, RBC 4.87, Hgb 14.6, Hct 44.4, MCV 91.2, MCH 30.0, MCHC 32.9, RDW 14.5, RDW Differential 47.6 H, Plt Count 176, MPV 10.9 07/10/18 05:35: Sodium 144, Potassium 3.7, Chloride 110 H, Carbon Dioxide 26.0, Anion Gap 8, BUN 14, Creatinine 0.81, Est GFR (MDRD) Af Amer 122, Est GFR (MDRD) Non-Af 100, BUN/Creatinine Ratio 17.2, Glucose 88, Calcium 8.0 L, Total Bilirubin 0.70, Triglycerides 76, Cholesterol 141, LDL Cholesterol 71, VLDL Cholesterol 15, HDL Cholesterol 55 07/10/18 05:35: PT 13.7, INR 1.1, APTT 38.3 H Rhythm: EKG: ECHO: Stress Test: Cardiac Cath: PCI: CT Surgery: Holter monitor: EPS: PPM: CXR: Chest CT Scan: Assessment/Plan 1. Atypical chest pain with abnormal myocardial perfusion stress test * He presents with the above. He did have baseline EKG changes and now has an abnormal stress test. My recommendation is that we proceed with a cardiac catheterization for further risk stratification. I discussed the above with him the risk benefits alternatives he understands and agrees to proceed. Depending on the findings further recommendations will be made. * 2. Hypertension * Would treat aggressively. Further recommendations be made after the cardiac catheterization. In the meantime I agree with KAE inhibitor and beta-becca. * 3. Lipid status * His lipid status actually appears to be remarkably good. We will continue this. * * * * Thank you for allowing me to participate in the care of your patient. Please don't hesitate to call if any issues arise * Addendum: Cardiac catheterization today demonstrated mild left main coronary artery disease, Mild left anterior descending artery stenosis. Left circumflex artery nondominant with mild disease and left to right collaterals. Dominant right coronary artery with high-grade 95% mid segment stenosis Mildly depressed left ventricular ejection fraction estimated at 50% with mild inferior hypokinesis. Based on the above angiographic findings the patient will be considered for ang ioplasty of the right coronary artery.
--- NOTE | 2018-07-10 10:25 | CASEMGMT ---
[facility] to [facility], the following are in-network tertiary facilities: [facility], [place], [facility], [place], [facility], [facility], [place], [facility], and . Lesli SHELTON CM
[2018-07-10] MEDS: TICAGRELOR 90 MG TABLET 180 MG PO (11:06)
--- NOTE | 2018-07-10 12:00 | CL.D_ITS ---
Patient Name: YARIEL REICH Study Date: 07/10/2018 Performing: Vinh Yuan MD Ht: 70.86 inches 180 cm : 1950 Wt: 176.37 lbs 80 kg Age: 68 Gender: male BSA: 2 PROCEDURE(S) PERFORMED BI16-WZS/COR/LV CLINICAL PROFILE AND INDICATIONS Indications: Suspected CAD Heart Failure: None Stress/Imaging Date: 07/10/2018Stress Test with SPECT MPI: Positive Intermediate Risk CAD Presentations: Symptom unlikely to be ischemic. CONCLUSIONS High-grade stenosis noted in the right coronary artery with mild disease noted in the circumflex adam ry and left anterior descending artery and left to right collaterals. Borderline ejection fraction w ith mild inferior hypokinesis RECOMMENDATIONS Referred for immediate PCI DESCRIPTION OF PROCEDURE The patient arrived to the procedure lab. The risks and benefits of the procedure as well as a full d escription of our services here and current unavailability of surgical backup were fully explained to the patient and/or their significant other prior to the catheterization. The Timeout was completed, verifying the correct patient and procedure. The patient's procedural site was prepped and draped in the usual fashion. Local anesthetic was given subcutaneously to right groin region with Lidocaine 2%. Using a modified Seldinger technique, arterial access was obtained via the right femoral artery, a 5 Fr sheath was inserted. Left Coronary Artery selective angiography was performed in multiple views u sing a 5 Fr. JL4 catheter. Right Coronary Artery selective angiography was then performed in multiple views using a 5 Fr. 3DRC (Andrew) catheter. Left Ventriculography was performed in MURO projection using a 5 Fr. Pigtail catheter. LV to AO pullback pressures were then recorded. CORONARY ANGIOGRAPHY DOMINANCE: Right Dominant LEFT HEART ASSESSMENT Left Ventricular Ejection Fraction: by LV Gram 50 % Inferior Basal Hypokinesis - Mild Depressed Left Ventricular systolic function LEFT MAIN: 30 % Stenosis LEFT ANTERIOR DECENDING ARTERY: Mild luminal irregularities less than 30% CIRCUMFLEX ARTERY: Mild luminal irregularities with 50-60%mid stenosis RIGHT CORONARY ARTERY: PROX RCA: 95 % Stenosis COLLATERAL FLOW: Collateral flow from Left to Right COMPLICATIONS PROCEDURE MEDICATIONS Versed 1 mg IV Fentanyl 50 mcg IV Versed 1 mg IV Versed 1 mg IV Oxygen: 2 L/min via nasal cannula SUMMARY OF HEMODYNAMIC DATA Time AIR REST ECG 11:21:11 AO 151/77 (107) SA 11:35:45 LV 153/12, 19 11:45:51 LV 157/12, 18 11:45:57 LV 152/3, 16 11:47:09 LVp 159/1, 21 11:47:12 LV 156/3, 24 11:47:15 AOp 163/76 (110) 11:47:17 Signed By Vinh Yuan MD On 07/10/2018 12:08:26 Signed By Vinh Yuan MD On 07/10/2018 11:59:24 Vinh Yuan MD
[2018-07-10 12:50] LABS: ACT Activated Clotting Time 213 sec (74-137)
--- NOTE | 2018-07-10 12:57 | CL.I_ITS ---
Patient Name: YARIEL REICH Study Date: 07/10/2018 Performing: Wilton Sanchez MD Ht: 70.86 inches 180 cm : 1950 Wt: 176.37 lbs 80 kg Age: 68 Gender: male BSA: 2 PROCEDURE(S) PERFORMED BI94-SJB W OR WO PTCA, SINGLE CORONARY ARTERY CLINICAL PROFILE AND CO-MORBIDITIES Indications: Suspected CAD, New Onset Angina <= 2 months, Worsening Angina Heart Failure: None Stress/Imaging Date: 07/10/2018 Stress Test with SPECT MPI: Positive Intermediate Risk Angina Classification Anginal Classification w/in 2 Weeks: CCS III CAD Presentations: Symptom unlikely to be ischemic. Unstable angina. CONCLUSIONS Successful PTCA/ROLY proximal RCA with a 3.0 x 16 Promus Synergy, post dilated proximally with a 3.5 x 8 NC Balloon; 90%-->0%, no dissection. Successful PTCA/ROLY mid RCA with slight stent overlap, utilizing a 2.5 x 38 Promus Synergy, post dila radha in proximal 1/2 with a 3.0 x 8 NC Balloon; 75%-->0%, no dissection. Successful Mynx closure of RFA. RECOMMENDATIONS Highly recommend quitting all tobacco products Follow up with primary library circulation technician Risk factor modification ASA Indefinitley Plavix for at least 12 months Routine post interventional care Refer for Outpatient Cardiac Rehab Manual sheath removal per protocol Follow up with Dr. Yuan Medical management of mid LCX unless or until pt has recurrent angina or infero-lateral ischemia on s tress testing. DESCRIPTION OF PROCEDURE The patient arrived to the procedure lab. The risks and benefits of the procedure as well as a full d escription of our services here and current unavailability of surgical backup were fully explained to the patient and/or their significant other prior to the catheterization. The Timeout was completed, verifying the correct patient and procedure. The patient's procedural site was prepped and draped in the usual fashion. Local anesthetic was given subcutaneously to right groin region with Lidocaine 2% Using a modified Seldinger technique,arterial access was obtained via the right femoral artery, a 5Fr sheath was inserted. Left Coronary Artery selective angiography was performed in multiple views usin g a 5 Fr. JL4 catheter. Right Coronary Artery selective angiography was then performed in multiple vi ews using a 5 Fr. 3DRC (Andrew) catheter. Left Ventriculography was performed in MURO projection usi ng a 5 Fr. Pigtail catheter. LV to AO pullback pressures were then recorded.The images were reviewed and options discussed. A decision was then made to proceed with an Intervention, IVUS o r other adjunct procedure. Arterial sheath was exchanged for a 6 Fr 45 cm Sheath. HS II Guide catheter was inserted and enga ged into the RCA. [employer] [place] Guide wire was advanced to the RCA. 2.0 x 12 Emerge Balloon catheter was inserted. Balloon catheter was advanced across lesion in the right coronary, proximal. Angiogram performed pre balloon dilatation. PTCA balloon inflated at 6 atms for 11 secs. PTCA balloon inflated at 8 atms for 12 secs. Angiogram performed post balloon dilatation. Angiogram performed post balloon dilatation. 3.0 x 16 Synergy Drug Eluting stent was inserted. Drug Eluting stent was advanced across the lesion in the right coronary, proximal. 3.5 x 8 NC Emerge Balloon catheter was inserted. Angiogra m performed post balloon dilatation. 2.5 x 38 Synergy Drug Eluting stent was inserted. Drug Eluting s tent was advanced across the lesion in the right coronary, mid. 3.5 x 8 NC Emerge Balloon catheter wa s reinserted 3.0 x 16 Synergy balloon system Balloon catheter was reinserted 3.0 x 8 NC Emerge Balloon catheter was advanced across lesion in the right coronary, mid. Angiogram performed po st balloon dilatation. Contrast was injected through the sheath and the Right Iliac and Femoral arter y were assessed for possible closure device. The arterial sheath was pulled and a Mynx closure devic e was deployed for hemostasis INTERVENTION INFORMATION LESION SITE: RCA (Proximal) Lesion Complexity: High/C, lesion at bifurcation: No, thrombus present: No, lesion length: 16 mm, cul prit lesion: Yes Pre Stenosis: 90 % Pre intervention GERMAN flow: 2 PROCEDURE: Drug Eluting Stent with pre and post dilatation Post Stenosis: 0 % Post intervention GERMAN flow: 3 Lesion Devices: Cook 6F 45cm Sheath Perfect Earth 6 Fr HSII 100cm Guide Catheter Boggs .014 [employer] [place] Straight 190cm James Sci EMERGE MR 2.00x12 BALLOON James Sci Synergy MR ROLY 3.00x16 James Sci NC EMERGE MR 3.00x08 BALLOON LESION SITE: RCA (Mid) Lesion Complexity: High/C, lesion at bifurcation: No, thrombus present: No, lesion length: 38 mm, cul prit lesion: No Pre Stenosis: 75 % Pre intervention GERMAN flow: 2 PROCEDURE: Drug Eluting Stent with pre and post dilatation Post Stenosis: 0 % Post intervention GERMAN flow: 3 Lesion Devices: Cook 6F 45cm Sheath Medtronic 6 Fr HSII 100cm Guide Catheter Boggs .014 [employer] [place] Straight 190cm James Sci Synergy MR ROLY 2.50x38 James Sci NC EMERGE MR 3.00x08 BALLOON COMPLICATIONS No Complications PROCEDURE MEDICATIONS Versed 1 mg IV Fentanyl 50 mcg IV Versed 1 mg IV Versed 1 mg IV Versed 1 mg IV Oxygen: 2 L/min via nasal cannula Heparin 6000 unit(s) IV 07/10/2018 12:08:57 Nitro 200 mcg IC 07/10/2018 12:10:39 Nitro 200 mcg IC 07/10/2018 12:10:39 Nitro 200 mcg IC 07/10/2018 12:18:28 Nitro 200 mcg IC 07/10/2018 12:21:38 IV Bolus: .9 NaCl 250 ml total 07/10/2018 12:11:34 IV Fluids: .9 NaCl decreased to 150 ml/hr 07/10/2018 12:44:42 SUMMARY OF HEMODYNAMIC DATA Time AIR REST ECG 11:21:11 AO 151/77 (107) SA 11:35:45 LV 153/12, 19 11:45:51 LV 157/12, 18 11:45:57 LV 152/3, 16 11:47:09 LVp 159/1, 21 11:47:12 LV 156/3, 24 11:47:15 AOp 163/76 (110) 11:47:17 RM AIR REST 12:08:42 Signed By Wilton Sanchez MD On 07/10/2018 12:56:08 Wilton Sanchez MD
[2018-07-10] MEDS: 0.9% Normal Saline 1,000 ML 150 ML IV (13:00)
--- NOTE | 2018-07-10 13:00 | EKG12_ITS ---
Test Reason : Blood Pressure : / mmHG Vent. Rate : 052 BPM Atrial Rate : 052 BPM P-R Int : 138 ms QRS Dur : 102 ms QT Int : 494 ms P-R-T Axes : 073 064 -83 degrees QTc Int : [address] & T wave abnormality, consider inferior ischemia Abnormal ECG When compared with ECG of 10-JUL-2018 05:57, MANUAL COMPARISON REQUIRED, DATA IS UNCONFIRMED Confirmed by LYNN BOBBY, LOKESH ([id number]), editor index MARCIN THOMPSON ([id number]) on 07/14/2018 1:20:24 PM Referred By: My Curry Confirmed By:LOKESH BAILEY MD
[2018-07-10] MEDS: Ipratropium/Albuterol Sulfate 3 ML AMPUL.NEB INHALATION ×2 (13:26→19:10)
--- NOTE | 2018-07-10 13:33 | PCM.PN.HOSP ---
Patient Problems: Active and Suspected Problems (Last Reviewed 06/04/18 @ 07:31 by Candice Holguin) Chest pain (Acute) Subjective: Patient was admitted with chest pain with radiation to left arm, progressively worsening for last [address] salazar call me is a abnormal stress test and cardiac cath. Vitals/I&O's: Vital Signs Temp Pulse Resp BP Pulse Ox 98.3 F 64 14 136/87 H 95 07/10/18 10:15 07/10/18 11:00 07/10/18 10:15 07/10/18 10:15 07/10/18 10:15 Oxygen Flow Rate (L/min) 2 Oxygen Delivery Method Room Air Weight: 177 lb 0.499 oz Body Mass Index (BMI) 24.7 Intake and Output for Last 24 Hours 07/08/18 07/09/18 07/10/18 23:59 23:59 23:59 Intake Total 1091 / 1091 690 / 690 Balance 1091 / 1091 690 / 690 General: Alert, Oriented x3, Cooperative HEENT: Atraumatic, PERRLA, EOMI, Normocephalic Neck: Supple, No JVD, Negative Carotid Bruits, - - Surgical scar over left subclavicular region. Lungs: Clear to auscultation, No rhonchi, No wheeze, No rales, Diminished - Air entry is diminished in both lung bases Cardiovascular: Regular rate, Regular Rhythm, Normal S1, Normal S2, No murmurs Abdomen: Bowel Sounds Present, Soft, Non Tender, Non-Distended Extremities: No edema, Capillary Refill Less than 3 Seconds Skin: No rashes, No breakdown Musculoskeletal: No Tenderness to Palpation of Joints or Extremities, Arthritic Changes Neurological: Cranial nerves II-XII grossly intact Psych/Mental Status: Normal Affect, Appropriate Laboratory Results 07/09/18 16:21: Troponin I 0.043 07/09/18 16:44: Magnesium 2.4 07/09/18 20:44: Troponin I 0.044 07/10/18 05:35: WBC 8.0, RBC 4.87, Hgb 14.6, Hct 44.4, MCV 91.2, MCH 30.0, MCHC 32.9, RDW 14.5, RDW Differential 47.6 H, Plt Count 176, MPV 10.9 07/10/18 05:35: Sodium 144, Potassium 3.7, Chloride 110 H, Carbon Dioxide 26.0, Anion Gap 8, BUN 14, Creatinine 0.81, Estim Creat Clear Calc 92.96, Est GFR (MDRD) Af Amer 122, Est GFR (MDRD) Non-Af 100, BUN/Creatinine Ratio 17.2, Glucose 88, Calcium 8.0 L, Total Bilirubin 0.70, AST 11 L, ALT 14 L, Alkaline Phosphatase 79, Total Protein 5.9 L, Albumin 2.8 L, Globulin 3.1, Albumin/Globulin Ratio 0.9, Triglycerides 76, Cholesterol 141, LDL Cholesterol 71, VLDL Cholesterol 15, HDL Cholesterol 55 07/10/18 05:35: PT 13.7, INR 1.1, APTT 38.3 H 07/10/18 12:38: Activated Clotting Time 213 H Current Medications Acetaminophen (Tylenol) 650 mg PO Q6H PRN PRN PRN Reason: Non-cardiac pain (mod-severe) Acetaminophen (Tylenol) 650 mg PO Q6H PRN PRN PRN Reason: Mild Pain (0-2/10) Hydrocodone Bitart/Acetaminophen ([place] 5mg-325mg) 1 - 2 tablet PO Q6H PRN PRN PRN Reason: Moderate-severe pain Al Hydroxide/Mg Hydroxide (Mylanta Ii) 30 ml PO Q6H PRN PRN PRN Reason: Gastric burning Albuterol Sulfate (Ventolin Aerosols) 2.5 mg INHALATION Q2H PRN PRN PRN Reason: dyspnea, wheezing Albuterol/Ipratropium (Duoneb) 3 ml INHALATION Q6HWA.RT [facility] Last Admin: 07/10/18 13:26 Dose: 3 ml Aspirin (Aspirin, Baby) 81 mg PO DAILY@0800 [facility] Last Admin: 07/10/18 06:22 Dose: 81 mg Aspirin (Ecotrin) 81 mg PO DAILY@0800 [facility] Atorvastatin Calcium (Lipitor) 80 mg PO QHS [facility] Last Admin: 07/09/18 23:28 Dose: 80 mg Atropine Sulfate () 0.5 mg IV UD PRN PRN Reason: HR <50 bpm Famotidine (Pepcid) 20 mg PO BID [facility] Last Admin: 07/10/18 09:08 Dose: Not Given Heparin Sodium (Beef Lung) (Heparin 500 Unit/5 Ml (100/Ml)) 500 unit IV UD PRN PRN Reason: HEPARIN FLUSH Hydralazine HCl (Apresoline Iv) 10 mg IV Q4H PRN PRN PRN Reason: SBP > 160 Sodium Chloride () 1,000 mls @ 0 mls/hr IV .Q0M [facility] Sodium Chloride () 1,000 mls @ 150 mls/hr IV .Q6H40M [facility] Stop: 07/10/18 19:39 Labetalol HCl (Trandate) 5 mg IV X1 PRN PRN Reason: SBP > 160 when pulling sheath Lorazepam (Ativan) 1 mg PO Q6H PRN PRN PRN Reason: BACK SPASMS/ANXIETY Magnesium Hydroxide (Milk Of Magnesia) 30 ml PO DAILY PRN PRN Reason: Constipation Metoclopramide HCl (Reglan) 5 mg IV Q6 PRN PRN Reason: NAUSEA/VOMITING Morphine Sulfate () 1 - 2 mg IV Q4H PRN PRN PRN Reason: PAIN Morphine Sulfate () 2 mg IV Q4H PRN PRN PRN Reason: Mild back pain (0-2/10) Nitroglycerin (Nitrostat) 0.4 mg SUBLINGUAL Q5M PRN PRN Reason: Angina pain Nitroglycerin (Nitrostat) 0.4 mg SUBLINGUAL Q5M PRN PRN Reason: CARDIAC/CHEST PAIN Ondansetron HCl (Zofran) 4 mg IV Q8H PRN PRN PRN Reason: NAUSEA/VOMITING Sodium Chloride () 5 - 15 ml IV UD PRN PRN Reason: SALINE FLUSH Sodium Chloride () 500 ml IV BOLUS PRN PRN Reason: VASO-VAGAL PROTOCOL Ticagrelor (Brilinta) 90 mg PO BID [facility] Medical Necessity - Tobacco Use Smoking Status: Current every day smoker Tobacco Use: Cigarettes Assessment/Plan All Active Problems (Last Reviewed 06/04/18 @ 07:31 by Candice Holguin) Chest pain (Acute) CAP (community acquired pneumonia) (Resolved) The patient is a 68 y/o M w/ PMHx: Chronic COPD Suspected, HTN, Hx [place], JESSICA not on treatment, 50 pack years of smoking, currently 3-4 cigarettes/day was admitted withhistory of nearing 2 months of sharp, stabbing, left-sided chest discomfort primarily into the shoulder and left upper extremity radiation associated dyspnea primarily when he exerts himself with improvement with rest with resolution after 5-10 minutes. EKG in PCPs office showed ST depression in inferior leads. Patient said evidence of heart attack/[place] was found during previous admission in May 2017 when he was associated with COPD exacerbation with RSV although troponin was normal at that time 1. Atypical chest pain suggestive of unstable angina with abnormal myocardial perfusion stress test: Patient was admitted in PCU and then transferred to ICU after PCI. Serial troponin enzymes are negative. Stress test reported as abnormal with mild to moderate inferior ischemia preserved EF with ST depression with evidence of inferior wall ischemia in a probably previously infarcted zone. Patient had cardiac cath. Findings are borderline EF 50% by LV gram with mild inferior basal hypokinesis. Proximal RCA 95% stenosis with collateral flow from left to right. Left main 30%, LAD less than 30% circumflex 50-60% mid stenosis Subsequently patient had drug-eluting stent in proximal and mid RCA. 2. Possible previous inferior wall [place] in the past: As found in stress test (3) Hypertension: Blood pressure needs to be controlled. On hydralazine. Resume lisinopril from tomorrow which is held because of cardiac cath. HCTZ is on hold. (4) Hyperlipidemia: On high intensity statin. Fasting well shows LDL 71, TG 76 total cholesterol 141, HDL 55 (5) Tobacco Abuse: Encouraged cessation, inpatient consultation per RT, NR if desired. (6) JESSICA: Noted in history, not on CPAP. (7) DVT Prophylaxis: SCDs, lovenox. Code Visit Inpatient E&M: 05217 Subs Hosp L3
--- NOTE | 2018-07-10 13:50 | PN_ITS ---
Patient Problems: Active and Suspected Problems (Last Reviewed 06/04/18 @ 07:31 by Candice Holguin) Chest pain (Acute) Subjective: Patient was admitted with chest pain with radiation to left arm, progressively worsening for last [address] salazar call me is a abnormal stress test and cardiac cath. Vitals/I&O's: Vital Signs Temp Pulse Resp BP Pulse Ox 98.3 F 64 14 136/87 H 95 07/10/18 10:15 07/10/18 11:00 07/10/18 10:15 07/10/18 10:15 07/10/18 10:15 Oxygen Flow Rate (L/min) 2 Oxygen Delivery Method Room Air Weight: 177 lb 0.499 oz Body Mass Index (BMI) 24.7 Intake and Output for Last 24 Hours 07/08/18 07/09/18 07/10/18 23:59 23:59 23:59 Intake Total 1091 / 1091 690 / 690 Balance 1091 / 1091 690 / 690 General: Alert, Oriented x3, Cooperative HEENT: Atraumatic, PERRLA, EOMI, Normocephalic Neck: Supple, No JVD, Negative Carotid Bruits, - - Surgical scar over left subclavicular region. Lungs: Clear to auscultation, No rhonchi, No wheeze, No rales, Diminished - Air entry is diminished in both lung bases Cardiovascular: Regular rate, Regular Rhythm, Normal S1, Normal S2, No murmurs Abdomen: Bowel Sounds Present, Soft, Non Tender, Non-Distended Extremities: No edema, Capillary Refill Less than 3 Seconds Skin: No rashes, No breakdown Musculoskeletal: No Tenderness to Palpation of Joints or Extremities, Arthritic Changes Neurological: Cranial nerves II-XII grossly intact Psych/Mental Status: Normal Affect, Appropriate Laboratory Results 07/09/18 16:21: Troponin I 0.043 07/09/18 16:44: Magnesium 2.4 07/09/18 20:44: Troponin I 0.044 07/10/18 05:35: WBC 8.0, RBC 4.87, Hgb 14.6, Hct 44.4, MCV 91.2, MCH 30.0, MCHC 32.9, RDW 14.5, RDW Differential 47.6 H, Plt Count 176, MPV 10.9 07/10/18 05:35: Sodium 144, Potassium 3.7, Chloride 110 H, Carbon Dioxide 26.0, Anion Gap 8, BUN 14, Creatinine 0.81, Estim Creat Clear Calc 92.96, Est GFR (MDRD) Af Amer 122, Est GFR (MDRD) Non-Af 100, BUN/Creatinine Ratio 17.2, Glucose 88, Calcium 8.0 L, Total Bilirubin 0.70, AST 11 L, ALT 14 L, Alkaline Phosphatase 79, Total Protein 5.9 L, Albumin 2.8 L, Globulin 3.1, Al bumin/Globulin Ratio 0.9, Triglycerides 76, Cholesterol 141, LDL Cholesterol 71, VLDL Cholesterol 15, HDL Cholesterol 55 07/10/18 05:35: PT 13.7, INR 1.1, APTT 38.3 H 07/10/18 12:38: Activated Clotting Time 213 H Current Medications Acetaminophen (Tylenol) 650 mg PO Q6H PRN PRN PRN Reason: Non-cardiac pain (mod-severe) Acetaminophen (Tylenol) 650 mg PO Q6H PRN PRN PRN Reason: Mild Pain (0-2/10) Hydrocodone Bitart/Acetaminophen ([place] 5mg-325mg) 1 - 2 tablet PO Q6H PRN PRN PRN Reason: Moderate-severe pain Al Hydroxide/Mg Hydroxide (Mylanta Ii) 30 ml PO Q6H PRN PRN PRN Reason: Gastric burning Albuterol Sulfate (Ventolin Aerosols) 2.5 mg INHALATION Q2H PRN PRN PRN Reason: dyspnea, wheezing Albuterol/Ipratropium (Duoneb) 3 ml INHALATION Q6HWA.RT [facility] Last Admin: 07/10/18 13:26 Dose: 3 ml Aspirin (Aspirin, Baby) 81 mg PO DAILY@0800 [facility] Last Admin: 07/10/18 06:22 Dose: 81 mg Aspirin (Ecotrin) 81 mg PO DAILY@0800 [facility] Atorvastatin Calcium (Lipitor) 80 mg PO QHS [facility] Last Admin: 07/09/18 23:28 Dose: 80 mg Atropine Sulfate () 0.5 mg IV UD PRN PRN Reason: HR <50 bpm Famotidine (Pepcid) 20 mg PO BID [facility] Last Admin: 07/10/18 09:08 Dose: Not Given Heparin Sodium (Beef Lung) (Heparin 500 Unit/5 Ml (100/Ml)) 500 unit IV UD PRN PRN Reason: HEPARIN FLUSH Hydralazine HCl (Apresoline Iv) 10 mg IV Q4H PRN PRN PRN Reason: SBP > 160 Sodium Chloride () 1,000 mls @ 0 mls/hr IV .Q0M [facility] Sodium Chloride () 1,000 mls @ 150 mls/hr IV .Q6H40M [facility] Stop: 07/10/18 19:39 Labetalol HCl (Trandate) 5 mg IV X1 PRN PRN Reason: SBP > 160 when pulling sheath Lorazepam (Ativan) 1 mg PO Q6H PRN PRN PRN Reason: BACK SPASMS/ANXIETY Magnesium Hydroxide (Milk Of Magnesia) 30 ml PO DAILY PRN PRN Reason: Constipation Metoclopramide HCl (Reglan) 5 mg IV Q6 PRN PRN Reason: NAUSEA/VOMITING Morphine Sulfate () 1 - 2 mg IV Q4H PRN PRN PRN Reason: PAIN Morphine Sulfate () 2 mg IV Q4H PRN PRN PRN Reason: Mild back pain (0-2/10) Nitroglycerin (Nitrostat) 0.4 mg SUBLINGUAL Q5M PRN PRN Reason: Angina pain Nitroglycerin (Nitrostat) 0.4 mg SUBLINGUAL Q5M PRN PRN Reason: CARDIAC/CHEST PAIN Ondansetron HCl (Zofran) 4 mg IV Q8H PRN PRN PRN Reason: NAUSEA/VOMITING Sodium Chloride () 5 - 15 ml IV UD PRN PRN Reason: SALINE FLUSH Sodium Chloride () 500 ml IV BOLUS PRN PRN Reason: VASO-VAGAL PROTOCOL Ticagrelor (Brilinta) 90 mg PO BID [facility] Medical Necessity - Tobacco Use Smoking Status: Current every day smoker Tobacco Use: Cigarettes Assessment/Plan All Active Problems (Last Reviewed 06/04/18 @ 07:31 by Candice Holguin) Chest pain (Acute) CAP (community acquired pneumonia) (Resolved) The patient is a 68 y/o M w/ PMHx: Chronic COPD Suspected, HTN, Hx [place], JESSICA not on treatment, 50 pack years of smoking, currently 3-4 cigarettes/day was admitted withhistory of nearing 2 months of sharp, stabbing, left-sided chest discomfort primarily into the shoulder and left upper extremity radiation associated dyspnea primarily when he exerts himself with improvement with rest with resolution after 5-10 minutes. EKG in PCPs office showed ST depression in inferior leads. Patient said evidence of heart attack/[place] was found during previous admission in May 2017 when he was associated with COPD exacerbation with RSV although troponin was normal at that time 1. Atypical chest pain suggestive of unstable angina with abnormal myocardial perfusion stress test: Patient was admitted in PCU and then transferred to ICU after PCI. Serial troponin enzymes are negative. Stress test reported as abnormal with mild to moderate inferior ischemia preserved EF with ST depression with evidence of inferior wall ischemia in a probably previously infarcted zone. Patient had cardiac cath. Findings are borderline EF 50% by LV gram with mild inferior basal hypokinesis. Proximal RCA 95% stenosis with collateral flow from left to right. Left main 30%, LAD less than 30% circumflex 50-60% mid stenosis Subsequently patient had drug-eluting stent in proximal and mid RCA. 2. Possible previous inferior wall [place] in the past: As found in stress test (3) Hypertension: Blood pressure needs to be controlled. On hydralazine. Resume lisinopril from tomorrow which is held because of cardiac cath. HCTZ is on hold. (4) Hyperlipidemia: On high intensity statin. Fasting well shows LDL 71, TG 76 total cholesterol 141, HDL 55 (5) Tobacco Abuse: Encouraged cessation, inpatient consultation per RT, NR if desired. (6) JESSICA: Noted in history, not on CPAP. (7) DVT Prophylaxis: SCDs, lovenox. Code Visit Inpatient E&M: 52517 Subs Hosp L3
--- NOTE | 2018-07-10 14:07 | CRPHASE1 ---
Patient Data/Charges Chief Medical Physicist:: Wilton Sanchez Phase II Referral:: [facility] Risk Factors/Lifestyle Smoking Status: Current every day smoker Hx Hypertension: Yes Hx Diabetes Mellitus Type 1: No Hx Diabetes Mellitus Type 2: No Hx Dyslipidemia: No Hx Obesity: No Height: 5 ft 11 in Weight:: 80.286 kg BMI: 24.7 Laboratory Values: Cardiac Rehab Phase I Labs Triglycerides 76 mg/dL (-199) 07/10/18 05:35 Cholesterol 141 mg/dL (200) 07/10/18 05:35 LDL Cholesterol 71 mg/dL (0-130) 07/10/18 05:35 HDL Cholesterol 55 mg/dL (40-) 07/10/18 05:35 Phase I Education Given On:: [place], Nutrition, Antiplatelet medication, CHF, Smoking cessation Issues Affecting Care:: None Learning Preferences: Verbal, Written Hospital Course Presenting Symptoms:: SHOULDER PAIN/SOB Cardiac Cath Date:: 07/10/18 RCA:: MID AND PROXIMAL Medical/Surgical History COPD:: Yes Hypertension:: Yes Discharge/Home/Social Eval Discharge Disposition: Home Marital Status:
--- NOTE | 2018-07-10 14:11 | CRPHASE1_ITS ---
Patient Data/Charges Machine Engineer:: Wilton Sanchez Phase II Referral:: [facility] Risk Factors/Lifestyle Smoking Status: Current every day smoker Hx Hypertension: Yes Hx Diabetes Mellitus Type 1: No Hx Diabetes Mellitus Type 2: No Hx Dyslipidemia: No Hx Obesity: No Height: 5 ft 11 in Weight:: 80.286 kg BMI: 24.7 Laboratory Values: Cardiac Rehab Phase I Labs Triglycerides 76 mg/dL (-199) 07/10/18 05:35 Cholesterol 141 mg/dL (200) 07/10/18 05:35 LDL Cholesterol 71 mg/dL (0-130) 07/10/18 05:35 HDL Cholesterol 55 mg/dL (40-) 07/10/18 05:35 Phase I Education Given On:: [place], Nutrition, Antiplatelet medication, CHF, Smoking cessation Issues Affecting Care:: None Learning Preferences: Verbal, Written Hospital Course Presenting Symptoms:: SHOULDER PAIN/SOB Cardiac Cath Date:: 07/10/18 RCA:: MID AND PROXIMAL Medical/Surgical History COPD:: Yes Hypertension:: Yes Discharge/Home/Social Eval Discharge Disposition: Home Marital Status:
--- NOTE | 2018-07-10 14:13 | CRPH1.INSTRU ---
General Education CAD and cardiac anatomy and function:: Needs reinforcement Explanation of diagnoses and procedures:: Needs reinforcement Sign/Symptoms of [place]:: Needs reinforcement Antiplatelet therapy: Needs reinforcement Proper use of NTG-SL: Needs reinforcement Emergency procedures and activation of EMS: Needs reinforcement Compliance of all prescribed medications: Needs reinforcement Smoking Patient Nicotine/Smoking Risk Factors Are:: Cigarettes Recommendations Include:: Participation in a smoking cessation program Nicotine/Smoking Response Code:: Needs reinforcement Dyslipidemia Recommendations Include:: Lipid profile provided, Therapeutic Lifestyle Change dietary guidelines Dyslipidemia Response Code:: Needs reinforcement Overweight/Obesity Patient Overweight/Obesity Risk Factors Are:: BMI Normal [18-25 & < 65 years old] Overweight/Obesity:: Needs reinforcement Hypertension Recommendations Include:: Maintain BP <130/85, DASH dietary guidelines, Decrease/maintain normal body weight, Moderation of ETOH Hypertension:: Needs reinforcement Heart Disease Patient Heart Disease Risk Factors Are:: Family history of heart disease < 65 years old Recommendations Include:: Educated family members of their risk, Educated family members of importance of prevention of heart disease Heart Disease Response Code:: Needs reinforcement Diabetes Patient Diabetes Risk Factors Are:: No documented hx of diabetes Stress Patient Stress Risk Factors Are:: Patient denies stress as a risk factor
--- NOTE | 2018-07-10 14:16 | CRPH1.INST_ITS ---
General Education CAD and cardiac anatomy and function:: Needs reinforcement Explanation of diagnoses and procedures:: Needs reinforcement Sign/Symptoms of [place]:: Needs reinforcement Antiplatelet therapy: Needs reinforcement Proper use of NTG-SL: Needs reinforcement Emergency procedures and activation of EMS: Needs reinforcement Compliance of all prescribed medications: Needs reinforcement Smoking Patient Nicotine/Smoking Risk Factors Are:: Cigarettes Recommendations Include:: Participation in a smoking cessation program Nicotine/Smoking Response Code:: Needs reinforcement Dyslipidemia Recommendations Include:: Lipid profile provided, Therapeutic Lifestyle Change dietary guidelines Dyslipidemia Response Code:: Needs reinforcement Overweight/Obesity Patient Overweight/Obesity Risk Factors Are:: BMI Normal [18-25 & < 65 years old] Overweight/Obesity:: Needs reinforcement Hypertension Recommendations Include:: Maintain BP <130/85, DASH dietary guidelines, Decrease/maintain normal body weight, Moderation of ETOH Hypertension:: Needs reinforcement Heart Disease Patient Heart Disease Risk Factors Are:: Family history of heart disease < 65 years old Recommendations Include:: Educated family members of their risk, Educated family members of importance of prevention of heart disease Heart Disease Response Code:: Needs reinforcement Diabetes Patient Diabetes Risk Factors Are:: No documented hx of diabetes Stress Patient Stress Risk Factors Are:: Patient denies stress as a risk factor
[2018-07-10] MEDS: Morphine 2 MG/ML Syringe IV (15:14)
[2018-07-10] MEDS: LORazepam 1 MG Tablet PO (15:14)
--- NOTE | 2018-07-10 15:25 | CASEMGMT ---
NIKITA BACA NOTE: Pt has been started on Brilinta. To room to talk with pt. Intro self and role of NIKITA BACA. Pt provided with Brilinta savings card. Pt made aware if he is discharged on Brilinta to provide this to his pharmacy when picking up the prescription. Also advised him to have the pharmacy check on what his co-pay will be for re-fills, and if it is not affordable to discuss this with his seo analyst at his follow up appt to discuss other options. Pt voices understanding. Pt states he was planning on driving himself home on discharge. Advised that after PCI/intervention that he should not drive himself home. Pt and state that their daughter is flying in tomorrow and that she can provide transportation home. Franci NSOW RN, CM
[2018-07-10] MEDS: Famotidine 20 MG Tablet PO (22:20)
[2018-07-10] MEDS: TICAGRELOR 90 MG TABLET PO (22:20)
[2018-07-10] MEDS: Atorvastatin Calcium 80 MG Tablet PO (22:20)
[2018-07-11] VITALS (13 sets, daily range): BP systolic 114–169; BP diastolic 57–105; PULSE 54–83; RESP 10–21; TEMP 36.6–37.1; O2SAT 95–98
[2018-07-11 05:49] LABS: Hematocrit 40.8 % (40-54); Hemoglobin 13.7 g/dl (13.0-16.5); Mean Corp Hgb Conc 33.6 g/gl (32-36); Mean Corpuscular Hgb 30.2 pg (27.0-32.0); Mean Corpuscular Volume 90.1 fL (80-94); Mean Platelet Vol. 10.9 fl (6.2-12.0); Platelet Count 184 K/mm3 (150-450); RBC Distribution Width CV 14.2 % (11.6-14.6); RBC Distribution Width SD 46.3 fl (35.1-43.9); Red Blood Count 4.53 M/mm3 (4.6-6.2); White Blood Count 8.7 K/mm3 (4.4-11.0)
[2018-07-11 05:56] LABS: Scan Indicated on CBC? Y/N NO
[2018-07-11 06:09] LABS: Anion Gap 8 (5-15); BUN 11 mg/dL (7-18); BUN/Creat Ratio 13.7 RATIO (10-20); Calcium,Total 8.1 mg/dL (8.5-10.1); Chloride 111 mmol/L (98-107); Cholesterol 134 mg/dL (200); EST Glomerular Filtration Rate 102 mL/min (>60); Est Glom Filt Rate - Afr Amer 123 mL/min (>60); Estimated Creatinine Clearance 94.13 ml/min; Glucose 94 mg/dL (74-106); High Density Lipoprotein 55 mg/dL; Potassium 3.7 mmol/L (3.5-5.1); Sodium Level 143 mmol/L (136-145); Triglycerides 72 mg/dL; Very Low Density Lipoprotein 14 mg/dL (5-40)
--- NOTE | 2018-07-11 08:43 | DCINST_ITS ---
- Discharge Diagnoses Current Active Problems: Current Active and Chronic Problems (Last Reviewed 06/04/18 @ 07:31 by Candice Holguin) Chest pain (Acute) You will use the following diet at home:: Cardiac Discharge Activity: May Not Drive - for 7 days Weight Bearing Status: Weight bearing as tolerated Call your doctor if you observe: Fever of 101 or Higher, Inability to urinate, Shortness of breath, Dizziness, Fainting spells, Swelling in the ankles, Chest pain Allergies/Adverse Reactions: Allergies bee venom protein (honey bee) Allergy (Verified 07/09/18 12:22) Anaphylaxis lactose Adverse Reaction (Verified 07/09/18 12:22) Other Medications to take at Discharge Cholecalciferol (VIT D3) [Vitamin D3] 1,000 unit PO DAILY 07/09/18 Cyanocobalamin (Vitamin B-12) 1 tab PO DAILY 07/09/18 Multivitamin [Multiple Vitamins] 1 tab PO DAILY 07/09/18 Oxycodone HCl/Acetaminophen [Oxycodone-Acetaminophen 5-325] 1 - 2 tab PO Q4H PRN PRN 07/09/18 Vit C/E/Zn/Coppr/Lutein/Zeaxan [Preservision Areds 2 Softgel] 1 each PO DAILY 07/09/18 Aspirin E.C. [Ecotrin] 81 mg PO DAILY@0800 #30 tablet 07/11/18 Atorvastatin Calcium 40 mg PO DAILY #30 tablet 07/11/18 Carvedilol [Coreg] 3.125 mg PO BID #60 tablet 07/11/18 Lisinopril [Zestril] 10 mg PO DAILY #30 tablet 07/11/18 Nitroglycerin [Nitrostat] 0.4 mg SUBLINGUAL Q5M PRN #30 tablet 07/11/18 Ticagrelor [Brilinta] 90 mg PO BID #60 tablet 07/11/18 The following prescriptions were given: Aspirin E.C. [Ecotrin] 81 mg PO DAILY@0800 #30 tablet Atorvastatin Calcium 40 mg PO DAILY #30 tablet Lisinopril [Zestril] 10 mg PO DAILY #30 tablet Nitroglycerin [Nitrostat] 0.4 mg SUBLINGUAL Q5M PRN #30 tablet PRN Reason: Angina pain Carvedilol [Coreg] 3.125 mg PO BID #60 tablet Ticagrelor [Brilinta] 90 mg PO BID #60 tablet Primary Care Physician: Silverio Ponce PA [Primary Care Provider] - Please follow up with your Primary Care Physician in: in 2 weeks Test Results: Test results from this visit will be discussed in further detail at your follow- up appointment, if applicable. Please Follow Up With: Vinh Yuan MD When: as scheduled
--- NOTE | 2018-07-11 08:43 | PCM.DC.SUM ---
Discharge Date and Diagnosis Date of Admission: 07/09/18 Date of Discharge: 07/11/18 - Primary Discharge Diagnosis Active and Suspected Problems (Last Reviewed 06/04/18 @ 07:31 by Candice Holguin) Chest pain (Acute) - Secondary Discharge Diagnosis Chronic Problems (Last Reviewed 06/04/18 @ 07:31 by Candice Holguin) Tobacco dependence in remission (Chronic) Hypertension (Chronic) Tobacco abuse (Chronic) Hospital Course and Treatment Operations: None Summary of Care Provided: [] The patient is a 68 y/o M w/ PMHx: Chronic COPD Suspected, HTN, Hx MO, JESSICA not on treatment, 50 pack years of smoking, currently 3-4 cigarettes/day was admitted withhistory of nearing 2 months of sharp, stabbing, left-sided chest discomfort primarily into the shoulder and left upper extremity radiation associated dyspnea primarily when he exerts himself with improvement with rest with resolution after 5-10 minutes. EKG in PCPs office showed ST depression in inferior leads. 1. Atypical chest pain suggestive of unstable angina with abnormal myocardial perfusion stress test, consistent with multivessel coronary artery disease which required drug-eluting stent: Patient was admitted in PCU and then transferred to ICU after PCI. Serial troponin enzymes are negative. Stress test reported as abnormal with mild to moderate inferior ischemia preserved EF with ST depression with evidence of inferior wall ischemia in a probably previously infarcted zone. Patient had cardiac cath. Findings are borderline EF 50% by LV gram with mild inferior basal hypokinesis. Proximal RCA 95% stenosis with collateral flow from left to right. Left main 30%, LAD less than 30% circumflex 50-60% mid stenosis Subsequently patient had drug-eluting stent in proximal and mid RCA. Right groin: No active bleeding or hematoma. 2. Possible previous inferior wall MO in the past: As found in stress test (3) Hypertension: Blood pressure needs to be controlled. On hydralazine. Resume lisinopril from tomorrow which is held because of cardiac cath. HCTZ is on hold. (4) Hyperlipidemia: On high intensity statin. Fasting well shows LDL 71, TG 76 total cholesterol 141, HDL 55 (5) Tobacco Abuse: Encouraged cessation, inpatient consultation per RT, NR if desired. (6) JESSICA: Noted in history, not on CPAP. (7) DVT Prophylaxis: SCDs, lovenox. Discharge medication reconciliation done. Patient is discharged on aspirin, Brilinta, low-dose carvedilol, lisinopril, and in atorvastatin. Prescription sent to the pharmacy. Discharge medication reconciliation done. Discharge follow-up instructions completed. Discharge process discussed with the patient and all questions were answered to patient's satisfaction. Total time spent, exact 35 minutes on discharge meds reconciliation, examination, review of imaging and blood test and discussion with the patient on follow-up instructions. Subjective: Patient seen and examined. No significant overnight event. Right groin femoral access site old blood stain but no active bleeding/oozing or hematoma. - Physical Exam General: Alert, Oriented x3, Cooperative HEENT: Atraumatic, PERRLA, EOMI, Normocephalic Neck: Supple, No JVD, Negative Carotid Bruits Lungs: Clear to auscultation, Normal air movement, No rhonchi, No wheeze, No rales Cardiovascular: Regular rate, Regular Rhythm, Normal S1, Normal S2, No murmurs Abdomen: Bowel Sounds Present, Soft, Non Tender, Non-Distended Extremities: No edema, Capillary Refill Less than 3 Seconds Skin: No rashes, No breakdown Musculoskeletal: No Tenderness to Palpation of Joints or Extremities, Arthritic Changes Neurological: Cranial nerves II-XII grossly intact Psych/Mental Status: Normal Affect, Appropriate Vital Signs Temp Pulse Resp BP Pulse Ox 97.9 F 68 12 137/97 H 97 07/11/18 04:00 07/11/18 07:00 07/11/18 07:00 07/11/18 07:00 07/11/18 07:00 Oxygen Flow Rate (L/min) 2 Oxygen Delivery Method Room Air Weight: 177 lb Body Mass Index (BMI) 24.7 Intake and Output for Last 24 Hours 07/09/18 07/10/18 07/11/18 23:59 23:59 23:59 Intake Total 1091 / 1091 1800 / 1800 360 / 360 Output Total 500 / 500 Balance 1091 / 1091 1300 / 1300 360 / 360 Laboratory Tests Past 24 Hrs 07/10/18 07/11/18 07/11/18 12:38 05:35 05:35 WBC 8.7 RBC 4.53 L Hgb 13.7 Hct 40.8 MCV 90.1 MCH 30.2 MCHC 33.6 RDW 14.2 RDW Differential 46.3 H Plt Count 184 MPV 10.9 Activated Clotting Time 213 H Sodium 143 Potassium 3.7 Chloride 111 H Carbon Dioxide 24.0 Anion Gap 8 BUN 11 Creatinine 0.80 Estim Creat Clear Calc 94.13 Est GFR (MDRD) Af Amer 123 Est GFR (MDRD) Non-Af 102 BUN/Creatinine Ratio 13.7 Glucose 94 Calcium 8.1 L Triglycerides 72 Cholesterol 134 LDL Cholesterol 65 VLDL Cholesterol 14 HDL Cholesterol 55 Discharge Activity: May Not Drive - for 7 days Weight Bearing Status: Weight bearing as tolerated Call your doctor if you observe: Fever of 101 or Higher, Inability to urinate, Shortness of breath, Dizziness, Fainting spells, Swelling in the ankles, Chest pain Home Medications: Medications to take at Discharge Cholecalciferol (VIT D3) [Vitamin D3] 1,000 unit PO DAILY 07/09/18 Cyanocobalamin (Vitamin B-12) 1 tab PO DAILY 07/09/18 Multivitamin [Multiple Vitamins] 1 tab PO DAILY 07/09/18 Oxycodone HCl/Acetaminophen [Oxycodone-Acetaminophen 5-325] 1 - 2 tab PO Q4H PRN PRN 07/09/18 Vit C/E/Zn/Coppr/Lutein/Zeaxan [Preservision Areds 2 Softgel] 1 each PO DAILY 07/09/18 Aspirin E.C. [Ecotrin] 81 mg PO DAILY@0800 #30 tablet 07/11/18 Atorvastatin Calcium 40 mg PO DAILY #30 tablet 07/11/18 Carvedilol [Coreg] 3.125 mg PO BID #60 tablet 07/11/18 Lisinopril [Zestril] 10 mg PO DAILY #30 tablet 07/11/18 Nitroglycerin [Nitrostat] 0.4 mg SUBLINGUAL Q5M PRN #30 tablet 07/11/18 Ticagrelor [Brilinta] 90 mg PO BID #60 tablet 07/11/18 Following Prescrptions Were Given to Patient: Aspirin E.C. [Ecotrin] 81 mg PO DAILY@0800 #30 tablet Atorvastatin Calcium 40 mg PO DAILY #30 tablet Lisinopril [Zestril] 10 mg PO DAILY #30 tablet Nitroglycerin [Nitrostat] 0.4 mg SUBLINGUAL Q5M PRN #30 tablet PRN Reason: Angina pain Carvedilol [Coreg] 3.125 mg PO BID #60 tablet Ticagrelor [Brilinta] 90 mg PO BID #60 tablet Primary Care Physician: Silverio Ponce PA [Primary Care Provider] - Please follow up with your Primary Care Physician in: in 2 weeks Please Follow Up With: Vinh Yuan MD When: as scheduled Medical Necessity - Tobacco Use Smoking Status: Current every day smoker Tobacco Use: Cigarettes Meaningful Use Info Meaningful Use Diagnoses (Choose all that apply): None applicable Code Visit Inpatient E&M: 72074 Disch Hosp
[2018-07-11] MEDS: TICAGRELOR 90 MG TABLET PO (09:25)
[2018-07-11] MEDS: Lisinopril 10 MG Tablet PO (09:39)
[2018-07-11] MEDS: Famotidine 20 MG Tablet PO (09:39)
--- NOTE | 2018-07-11 09:54 | PN.CARD_ITS ---
Subjectve: Patient seen and evaluated. Appears to be doing well no complaints Objective: Vital Signs Temp Pulse Resp BP Pulse Ox 98.8 F 66 20 H 154/95 H 95 07/11/18 08:00 07/11/18 08:27 07/11/18 08:00 07/11/18 08:00 07/11/18 08:00 Oxygen Flow Rate (L/min) 2 Oxygen Delivery Method Room Air Weight: 177 lb Body Mass Index (BMI) 24.7 Intake and Output for Last 24 Hours 07/09/18 07/10/18 07/11/18 23:59 23:59 23:59 Intake Total 1091 / 1091 1800 / 1800 360 / 360 Output Total 500 / 500 Balance 1091 / 1091 1300 / 1300 360 / 360 General: Awake, Alert, Oriented x 3 HEENT: PERRL, EOMI, Sclera Non Icteric Neck: Supple, Good ROM, No Lymph Node Enlargement Lungs: Clear to auscultation Cardiovascular: Regular Rhythm, Normal S1, Normal S2, No Murmurs, No Rubs, No Gallops Vascular: No Carotid Bruits, Normal Femoral Pulses, Normal Radial Pulses, Normal Dorsalis Pedal Pulse, Normal Posterior Tibial Pulses Abdomen: Bowel Sounds Present, Soft, Non Tender, No HSM, No Organomegaly Extremities: No Cyanosis, No Clubbing, No edema Neurological: No Focal Motor or Sensory Deficit Psych/Mental Status: Appropriate 07/11/18 05:35: WBC 8.7, RBC 4.53 L, Hgb 13.7, Hct 40.8, MCV 90.1, MCH 30.2, MCHC 33.6, RDW 14.2, RDW Differential 46.3 H, Plt Count 184, MPV 10.9 07/11/18 05:35: Sodium 143, Potassium 3.7, Chloride 111 H, Carbon Dioxide 24.0, Anion Gap 8, BUN 11, Creatinine 0.80, Est GFR (MDRD) Af Amer 123, Est GFR (MDRD) Non-Af 102, BUN/Creatinine Ratio 13.7, Glucose 94, Calcium 8.1 L, Triglycerides 72, Cholesterol 134, LDL Cholesterol 65, VLDL Cholesterol 14, HDL Cholesterol 55 Rhythm: EKG: ECHO: Stress Test: Cardiac Cath: PCI: CT Surgery: Holter monitor: EPS: PPM: CXR: Chest CT Scan: Medical Necessity - Tobacco Use Smoking Status: Current every day smoker Tobacco Use: Cigarettes Assessment/Plan 1. Atypical chest pain with abnormal myocardial perfusion stress test * He presents with the above. He did have baseline EKG changes and now has an abnormal stress test. My recommendation is that we proceed with a cardiac catheterization for further risk stratification. I discussed the above with him the risk benefits alternatives he understands and agrees to proceed. Depending on the findings further recommendations will be made. * 2. Hypertension * Would treat aggressively. Further recommendations be made after the cardiac catheterization. In the meantime I agree with KAE inhibitor and beta-becca. * 3. Lipid status * His lipid status actually appears to be remarkably good. We will continue this. * * * * Thank you for allowing me to participate in the care of your patient. Please don't hesitate to call if any issues arise * Addendum: Cardiac catheterization today demonstrated mild left main coronary artery disease, Mild left anterior descending artery stenosis. Left circumflex artery nondominant with mild disease and left to right collaterals. Dominant right coronary artery with high-grade 95% mid segment stenosis Mildly depressed left ventricular ejection fraction estimated at 50% with mild inferior hypokinesis. Based on the above angiographic findings the patient underwent angioplasty and s tenting of the right coronary artery with a drug-eluting stent. His hemoglobin has remained stable post operatively and his hematocrit has also remained stable and his creatinine has remained stable. No EKG changes in the groin does not have any evidence of hematoma. He will be discharged for outpatient follow-up and cardiac rehabilitation.
--- NOTE | 2018-07-13 15:58 | CASEMGMT ---
NKIITA BACA DISCHARGE PHONE CALL DC DATE: 07/11/18 DC DISPOSITION: Home LACE/STRATA: 01/12 Intro role of CM to patient via phone. Pt did have questions re: prescriptions. Reviewed with pt and let him know these medications would be taken over next months and not to stop unless directed by physician. Pt did not have appointment f/u with cardiology. NIKITA BACA called to [facility] @ Dr. Yuan's office and appt made for August 07, @ 10:[address] Yuan's office number also given to patient. -NIKITA BACA called to [facility] cardiac Rehab as pt had not heard from them yet. Per Cameron, referral had not been sent over, but they will call pt when received. Pt is aware. -No further questions, no care improvement suggestions given. Keaton MORELN RN ACM
== END 2018-07-11 10:50 | disposition home or self-care (01) | DRG 247 ==
LOC: ED 13:22 → PCU 16:20 → ICU 07-10 13:17 → PCU 07-10 13:38
PROVIDERS: Internal Medicine Cardiovascular Disease; Admitting Provider Family Medicine; Emergency Provider Emergency Medicine; Family Provider Physician Assistant; PCP Physician Assistant; Referring Provider Family Medicine; Visit Provider Internal Medicine
DX: I25.110 Atherosclerotic heart disease of native coronary artery with unstable angina pectoris (principal); J44.9 Chronic obstructive pulmonary disease, unspecified; E78.5 Hyperlipidemia, unspecified; I25.2 Old myocardial infarction; G47.33 Obstructive sleep apnea (adult) (pediatric); I10 Essential (primary) hypertension; F17.210 Nicotine dependence, cigarettes, uncomplicated
CPT/HCPCS: 36415; 71045; 78452; 80048; 80053; 80061; 83735; 84484; 85025; 85027; 85347; 85610; 85730; 92928; 93005; 93017; 93458; 94640; 97802; 99152; 99153; 99284; A9500; C1760; J7030; A4216; C1725; C1769; C1874; C1887; C1894; C9600; J2785; Q9967

== ENCOUNTER → 2018-09-15 08:29 | Outpatient (CLI) | payer MEDICARE, SELFPAY ==
[2018-07-10 14:12] VITALS: BMI 24.7
[2018-08-07 10:31] VITALS: BMI 24.5
--- NOTE | 2018-09-15 08:35 | PCM.CR.HP2 ---
CR - History & Physical - General Arrival date:: 09/15/18 Arrival time:: 08:35 Date of Referral:: 08/14/18 Date of CR Evaluation:: 09/15/18 Referring Physician: Dr. Vinh Yuan Primary Diagnosis: PTCA, PCI w/coronary stent intervention - History of Present Cardiac Event Onset Date: Enter Onset Date of cardiac illnesses in Comment field below Acute Myocardial Infarction within 12 months:: Yes - NSTEMI 07/10/2018 PTCA or coronary stenting:: Yes - 07/10/2018 Type of Symptoms:: SHORTNESS OF BREATH, LACK OF ENERGY, DENIED ANY PAIN. HAD A PREVIOUS BROKEN COLLAR BONE AND BELIEVED THE LEFT ARM PAIN WAS DUE TO THAT. Interventions with present event:: PTCA, PCI W/CORONARY STENT PLACEMENT Were there any complications?: NONE - Medications Home Medications: Ambulatory Orders Medication Instructions Recorded Multivitamin [Multiple Vitamins] 1 tab PO DAILY 07/09/18 Aspirin E.C. [Ecotrin] 81 mg PO DAILY@0800 #30 tab 07/11/18 nitroglycerin 0.4 mg sublingual 0.4 mg SUBLINGUAL Q5M PRN #25 tab 09/01/18 tablet atorvastatin 40 mg tablet 40 mg PO DAILY #90 tab 09/07/18 carvedilol 3.125 mg tablet 3.125 mg PO BID #180 tab 09/07/18 lisinopril 10 mg tablet 10 mg PO DAILY #90 tab 09/07/18 ticagrelor 90 mg tablet 90 mg PO BID #180 tab 09/07/18 - Allergies Allergies/Adverse Reactions: Allergies bee venom protein (honey bee) Allergy (Verified 07/09/18 12:22) Anaphylaxis lactose Adverse Reaction (Verified 07/09/18 12:22) Other - Sleep Disorder Evaluation Hx of Sleep Apnea: No Do you snore loudly (louder than talking or can be heard through closed doors)?: No Do you often feel tired/ fatigued/ sleepy during daytime?: No Has anyone observed you stop breathing during sleep?: No History of Hypertension (for STOP score): Yes STOP Results: Negative Advanced Directives - Advanced Directives Power of Hazmat Cdl Driver: Yes Living Will: Yes Advance Directives Information Provided: No Advance Directives on File: No - IN [facility]S OFFICE DNR Order?:: No - MOLST See MOLST form: No Past Medical History - Past Medical Illness Medical History: Past Medical History (Last Updated 08/14/18 @ 16:04 by Dodie Sheppard) Atherosclerotic heart disease of [place] coronary artery without angina pectoris (Chronic) I25.10 PTCA/ROLY proximal RCA with a 3.0 x16 Promus Synergy, PTCA/ROLY mid RCA with slight stent overlap 07/10/[address] Sanchez @ [facility] 07/10/2018 CAP (community acquired pneumonia) (Resolved) J18.9 Tobacco dependence in remission (Chronic) F17.201 COPD (chronic obstructive pulmonary disease) (Suspected) J44.9 Hypertension (Chronic) I10 Tobacco abuse (Chronic) Z72.0 - Past Surgical History Surgical History: Past Surgical History (Last Updated 08/14/18 @ 16:03 by Dodie Sheppard) Stented coronary artery (Chronic) Onset Date: 07/10/18 Z95.5 PTCA/ROLY proximal RCA with a 3.0 x16 Promus Synergy, PTCA/ROLY mid RCA with slight stent overlap 07/10/[address] Sanchez @ [facility] Surgical History: cataract, tonsillectomy, - - Left shoulder/bone surgery with hardware. Social History - Smoking History Smoking Status: Current some day smoker Years Smokin Packs Smoked per Day: 1 Hx Tobacco Use: Yes Hx Smoking Exposure: Yes - Alcohol Use Alcohol Usage: Yes - OCCASIONALLY WINE WHEN FEEL LIKE IT - Substance Abuse Hx Substance Use: No - Occupation Occupation (List type of work in comments):: Retired - Hobbies, Recreation, Social Activities Hobbies: Other - [place] baseball for high sschool. Recreational Activities: I am able to engage in all my recreational activities Social Environment - Status Marital Status: - Current Living Arrangements Living Environment:: Spouse - Children Do any of your children live nearby?: No - all children are out of state - Safety Do you feel safe in your surroundings?: Yes - Assistance Do you need any assistance at home?: none Review of Systems - Review of Systems Hints: Right click = Denies ([place]ash). Left click = Reports ([place]) Review of Present Symptoms: Reports: Shortness of Breath at Rest, Shortness of Breath with Exertion, Appetite - Special Diet - supposed to be on a [place] diet but don't like anything on it., Sleep - Normal. Denies: Angina, Dizziness/Lightheadedness, Fatigue, Appetite - Normal, Sexual Changes - Pain Is Patient Pain Free?: No Pain Location: none Pain Level: 0/10 Risk Factor Assessment - Chief Complaint Chief Complaint: Patient is a 68 yr opld male patient who recently had an acute IL and subsequent PCI intervention here at [facility] in July of this year. - Vital Signs Temperature: 98.7 F Respiratory Rate: 16 Blood Pressure: 140/78 - Pulse Pulse Rate: 72 Pulse Rhythm: Regular - Hypertension How long have you been treated?: last 2-3 years Blood Pressure Sitting - Right Arm: 140/78 - Blood Cholesterol/Lipids Total Cholesterol (mg/dL) Goal = less than 200 mg/dL: 134 HDL Cholesterol (mg/dL) Goal = less than 40 mg/dL: 55 LDL Cholesterol (mg/dL) Goal = less than 70 mg/dL: 65 Triglycerides (mg/dL) Goal = less than 150 mg/dL: 72 - Obesity Height: 5 ft 11 in Weight:: 176 lb Weight in Pounds: 176.0 lbs Weight Source: Patient Lift Scale Body Mass Index (BMI): 24.5 Nutritional Referral for Obesity: No - Physical Inactivity Physical Inactivity: None - Risk Stratification Risk Guidelines: Lowest Risk: Risk Factor for Smoking, Risk Factor for Dyslipidemia, Risk Factor for Diabetes, Risk Factor for Obesity, Risk Factor for Sedentary Lifestyle, Risk Factor for Depression, Moderate Risk: Risk Factor for Hypertension - For Smoking Smoking Risk Guidelines: Smoking Low Risk: None or quit greater than 6 months ago. Smoking Moderate Risk: Smoker or quit 6 months or less ago. Smoking High Risk: Smoker - For Dyslipidemia Dyslipidemia Risk Guidelines: Low Risk: Moderate Risk: High Risk: 15-25% fat 25.1-29% fat >/= 30% fat. <7% sat fat 7-9% sat fat >9% sat fat. <150 mg chol 150-299 mg chol >/= 300 mg chol. LDL <100 LDL 100-129 LDL >/= 130. Chol/HDL ratio <5.0 Chol/HDL ratio 5.0-6.0 Chol/HDL ratio >6.0. Triglycerides <100 Triglycerides 100-149 Triglycerides >/= 150 - For Diabetes Mellitus Diabetes Risk Guidelines: Diabetes Low Risk: HgA1c <6.5% and/or FBG <120. Diabetes Moderate Risk: HgA1c 6.6-7.9% and/or FBG 120-180. Diabetes High Risk: HgA1c >/= 8% and/or FBG >180 - For Obesity/Overweight Obesity/Overweight Risk Guidelines: Obesity Low Risk: BMI <25.0. Obesity Moderate Risk: BMI 25-29.9. Obesity High Risk: BMI >/= 30.0 - For Hypertension Hypertension Risk Guidelines: Hypertension Low Risk: Systolic <120 and Diastolic <80. Hypertension Moderate Risk: Systolic 120-139 and Diastolic 80-89. Hypertension High Risk: Systolic >/= 140 and Diastolic >/= 90 - For Sedentary Lifestyle Sedentary Lifestyle Risk Guidelines: Sedentary Lifestyle Low Risk: >/= 1,500 kcal/week. Sedentary Lifestyle Moderate Risk: 700-1,499 kcal/week. Sedentary Lifestyle High Risk: < 700 kcal/week - For Depression Depression Risk Guidelines: Depression Low Risk: Not clinically depressed. Depression Moderate Risk: Mildly depressed. Depression High Risk: Clinically depressed Motivation - Motivation to Participate On a scale of 1 to 10, how prepared are you to commit to attending program?: 5 What do you see as barriers to successfully being able to complete the program?: time; time getting here and scheduling. What do you see as the benefits of succesfully completing the program? In other words, what do you hope to get out of participating in the program?: unknown. Are there issues you are dealing with that will interfere with completing the program?: scheduling and time commitment; travel alot ot [place] and [place] for job Do you have a spouse or signficant other, family or friends who will help support you to complete the program?: yes.
--- NOTE | 2018-09-15 08:39 | CR.HP_ITS ---
CR - History & Physical - General Arrival date:: 09/15/18 Arrival time:: 08:35 Date of Referral:: 08/14/18 Date of CR Evaluation:: 09/15/18 Referring Physician: Dr. Vinh Yuan Primary Diagnosis: PTCA, PCI w/coronary stent intervention - History of Present Cardiac Event Onset Date: Enter Onset Date of cardiac illnesses in Comment field below Acute Myocardial Infarction within 12 months:: Yes - NSTEMI 07/10/2018 PTCA or coronary stenting:: Yes - 07/10/2018 Type of Symptoms:: SHORTNESS OF BREATH, LACK OF ENERGY, DENIED ANY PAIN. HAD A PREVIOUS BROKEN COLLAR BONE AND BELIEVED THE LEFT ARM PAIN WAS DUE TO THAT. Interventions with present event:: PTCA, PCI W/CORONARY STENT PLACEMENT Were there any complications?: NONE - Medications Home Medications: Ambulatory Orders Medication Instructions Recorded Multivitamin [Multiple Vitamins] 1 tab PO DAILY 07/09/18 Aspirin E.C. [Ecotrin] 81 mg PO DAILY@0800 #30 tab 07/11/18 nitroglycerin 0.4 mg sublingual 0.4 mg SUBLINGUAL Q5M PRN #25 tab 09/01/18 tablet atorvastatin 40 mg tablet 40 mg PO DAILY #90 tab 09/07/18 carvedilol 3.125 mg tablet 3.125 mg PO BID #180 tab 09/07/18 lisinopril 10 mg tablet 10 mg PO DAILY #90 tab 09/07/18 ticagrelor 90 mg tablet 90 mg PO BID #180 tab 09/07/18 - Allergies Allergies/Adverse Reactions: Allergies bee venom protein (honey bee) Allergy (Verified 07/09/18 12:22) Anaphylaxis lactose Adverse Reaction (Verified 07/09/18 12:22) Other - Sleep Disorder Evaluation Hx of Sleep Apnea: No Do you snore loudly (louder than talking or can be heard through closed doors)?: No Do you often feel tired/ fatigued/ sleepy during daytime?: No Has anyone observed you stop breathing during sleep?: No History of Hypertension (for STOP score): Yes STOP Results: Negative Advanced Directives - Advanced Directives Power of Reconsignment Clerk: Yes Living Will: Yes Advance Directives Information Provided: No Advance Directives on File: No - IN [facility] OFFICE DNR Order?:: No - MOLST See MOLST form: No Past Medical History - Past Medical Illness Medical History: Past Medical History (Last Updated 08/14/18 @ 16:04 by Dodie Sheppard) Atherosclerotic heart disease of [place] coronary artery without angina pectoris (Chronic) I25.10 PTCA/ROLY proximal RCA with a 3.0 x16 Promus Synergy, PTCA/ROLY mid RCA with slight stent overlap 07/10/[address] Sanchez @ 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 Sanchez @ [facility] Surgical History: cataract, tonsillectomy, - - Left shoulder/bone surgery with hardware. Social History - Smoking History Smoking Status: Current some day smoker Years Smokin Packs Smoked per Day: 1 Hx Tobacco Use: Yes Hx Smoking Exposure: Yes - Alcohol Use Alcohol Usage: Yes - OCCASIONALLY WINE WHEN FEEL LIKE IT - Substance Abuse Hx Substance Use: No - Occupation Occupation (List type of work in comments):: Retired - Hobbies, Recreation, Social Activities Hobbies: Other - [place] baseball for high s[employer]. Recreational Activities: I am able to engage in all my recreational activities Social Environment - Status Marital Status: - Current Living Arrangements Living Environment:: Spouse - Children Do any of your children live nearby?: No - all children are out of state - Safety Do you feel safe in your surroundings?: Yes - Assistance Do you need any assistance at home?: none Review of Systems - Review of Systems Hints: Right click = Denies (Slash). Left click = Reports ([place]) Review of Present Symptoms: Reports: Shortness of Breath at Rest, Shortness of Breath with Exertion, Appetite - Special Diet - supposed to be on a [place] diet but don't like anything on it., Sleep - Normal. Denies: Angina, Dizziness/Lightheadedness, Fatigue, Appetite - Normal, Sexual Changes - Pain Is Patient Pain Free?: No Pain Location: none Pain Level: 0/10 Risk Factor Assessment - Chief Complaint Chief Complaint: Patient is a 68 yr opld male patient who recently had an acute WI and subsequent PCI intervention here at [facility] in July of this year. - Vital Signs Temperature: 98.7 F Respiratory Rate: 16 Blood Pressure: 140/78 - Pulse Pulse Rate: 72 Pulse Rhythm: Regular - Hypertension How long have you been treated?: last 2-3 years Blood Pressure Sitting - Right Arm: 140/78 - Blood Cholesterol/Lipids Total Cholesterol (mg/dL) Goal = less than 200 mg/dL: 134 HDL Cholesterol (mg/dL) Goal = less than 40 mg/dL: 55 LDL Cholesterol (mg/dL) Goal = less than 70 mg/dL: 65 Triglycerides (mg/dL) Goal = less than 150 mg/dL: 72 - Obesity Height: 5 ft 11 in Weight:: 176 lb Weight in Pounds: 176.0 lbs Weight Source: Patient Lift Scale Body Mass Index (BMI): 24.5 Nutritional Referral for Obesity: No - Physical Inactivity Physical Inactivity: None - Risk Stratification Risk Guidelines: Lowest Risk: Risk Factor for Smoking, Risk Factor for Dyslipidemia, Risk Factor for Diabetes, Risk Factor for Obesity, Risk Factor for Sedentary Lifestyle, Risk Factor for Depression, Moderate Risk: Risk Factor for Hypertension - For Smoking Smoking Risk Guidelines: Smoking Low Risk: None or quit greater than 6 months ago. Smoking Moderate Risk: Smoker or quit 6 months or less ago. Smoking High Risk: Smoker - For Dyslipidemia Dyslipidemia Risk Guidelines: Low Risk: Moderate Risk: High Risk: 15-25% fat 25.1-29% fat >/= 30% fat. <7% sat fat 7-9% sat fat >9% sat fat. <150 mg chol 150-299 mg chol >/= 300 mg chol. LDL <100 LDL 100-129 LDL >/= 130. Chol/HDL ratio <5.0 Chol/HDL ratio 5.0-6.0 Chol/HDL ratio >6.0. Triglycerides <100 Triglycerides 100- 149 Triglycerides >/= 150 - For Diabetes Mellitus Diabetes Risk Guidelines: Diabetes Low Risk: HgA1c <6.5% and/or FBG <120. Diabetes Moderate Risk: HgA1c 6.6-7.9% and/or FBG 120-180. Diabetes High Risk: HgA1c >/= 8% and/or FBG >180 - For Obesity/Overweight Obesity/Overweight Risk Guidelines: Obesity Low Risk: BMI <25.0. Obesity Moderate Risk: BMI 25-29.9. Obesity High Risk: BMI >/= 30.0 - For Hypertension Hypertension Risk Guidelines: Hypertension Low Risk: Systolic <120 and Diastolic <80. Hypertension Moderate Risk: Systolic 120-139 and Diastolic 80-89. Hypertension High Risk: Systolic >/= 140 and Diastolic >/= 90 - For Sedentary Lifestyle Sedentary Lifestyle Risk Guidelines: Sedentary Lifestyle Low Risk: >/= 1,500 kcal/week. Sedentary Lifestyle Moderate Risk: 700-1,499 kcal/week. Sedentary Lifestyle High Risk: < 700 kcal/week - For Depression Depression Risk Guidelines: Depression Low Risk: Not clinically depressed. Depression Moderate Risk: Mildly depressed. Depression High Risk: Clinically depressed Motivation - Motivation to Participate On a scale of 1 to 10, how prepared are you to commit to attending program?: 5 What do you see as barriers to successfully being able to complete the program?: time; time getting here and scheduling. What do you see as the benefits of succesfully completing the program? In other words, what do you hope to get out of participating in the program?: unknown. Are there issues you are dealing with that will interfere with completing the program?: scheduling and time commitment; travel alot ot [place] and [place] for job Do you have a spouse or signficant other, family or friends who will help support you to complete the program?: yes.
[2018-09-15 08:46] VITALS: BP 140/78; PULSE 72; RESP 16; TEMP 37.1; BMI 24.5
--- NOTE | 2018-09-15 08:56 | PCM.CR.ITP ---
General Information - General Information Admitting Diagnosis: NSTEMI, PCI w/cornary intervention Special Needs: PATIENT NOT VERY ENTHUSIASTIC ABOUT ATTENDING CR. - Education/Goals Barriers to Learning: None Individual Counseling: Initial Assessment: Nicotine/Smoking, Abnormal Cholesterol Levels, High Blood Pressure Cardiac Rehabilitation Goals: 1. Maintain the individual as the primary focus of care. 2. To improve the patient's quality of life. 3. Identification of cardiac risk factors and provide cardiac risk factor management. 4. Enhance the psychosocial status of the patient. 5. Reconditioning enough to allow the patient to resume customary activities. 6. Control symptoms of cardiac disease Scale for measuring improvement of personal goals: Enter appropriate number in Comments. 2 = Unchanged. 3 = Slightly Better. 4 = Moderate Improvement. 5 = Met my Goal Personal Goals: Initial Assessment: Improve energy level, Improve muscle strength and endurance, Improve diet and eating habits (eat healthier), Control risk factors (learn risk factor modification) Exercise - Initial Assessment - Visit Date of Eval: 09/15/18 Session #:: 0 - START - Stages of Change Stages of Change:: Pre-contemplation, Contemplate - Physician Prescribed Exercise Modalities: Treadmill, Rower, Airdyne Frequency (days/week): 3x/week for 12 weeks [36 sessions] Duration (Minutes):: 30-45 Intensity: 60-80% age predicted maximum heart rate reserve METs - Progression: 0.5-1.0 MET, RPE 11-14 WEEK: 2.5 Target Heart Rate:: 72-92 - Hypertension Do any of the following apply?: Yes, Medication Resting Blood Pressure:: 140/78 - Intervention Home Exercise/Activity Goal:: Moderate Exercise 30 min/day x 5 days/wk - Education Goals:: Warm-up, RPE MADAY Scale, S/S, Safe Exercise, Self-Monitoring - Exercise Program Goals Exercise Program Goals: Aerobic Activity >30 min Nutrition - Initial Assessment - Program Goals Nutrition Program Goals: LDL <70. Total Cholesterol <200. HDL >45. Triglycerides <150. HgbA1C <7%. BMI <25 - Visit Date of Assessment:: 09/15/18 - Stages of Change Stages of Change:: Pre-contemplation, Contemplate - Lipids Total Cholesterol (mg/dL) Goal = less than 200 mg/dL: 134 HDL Cholesterol (mg/dL) Goal = less than 45 mg/dL: 55 LDL Cholesterol (mg/dL) Goal = less than 70 mg/dL: 65 Triglycerides (mg/dL) Goal = less than 150 mg/dL: 72 - Diabetes Diabetes:: No - Weight Management Height: 5 ft 11 in Weight:: 176 lb Body Fat %:: 24.5 - Intervention Referral to dietitian:: No Referral to Diabetic Clinic:: No Will attend diet classes:: Yes - Education Gave educational materials for:: Healthy eating Tobacco - Initial Assessment - Program Goals Tobacco Program Goals: Complete smoking cessation. Attend education classes. Improve Knowledge Test score - Stage of Change Stages of Change:: Pre-contemplation, Contemplate - Learning Barriers Learning Barriers: Ready to Learn - Family Support Do you have family support?: Yes - Tobacco Use Tobacco Use: Cigarettes How many cigarettes do you smoke per day?: 10 Years Smokin Do you use smokeless tobacco?: No - Intervention Smoking Cessation Referral:: Yes Individual Education/Counseling:: No Education Schedule Given:: Yes - Education Gave educational material for:: Tobacco triggers, Coronary artery disease, Risk factors, Sexuality, Medical compliance, Cardiac A&P, Angina signs & symptoms Psychosocial - Initial Assess - Target Goals Target Goals: Assess presence or absence of depression. Using a valid screening tool, maximizes coping skills. Positive support system - Stages of Change Stages of Change:: Pre-contemplation, Contemplate - Psychosocial Test Tool Used:: HANDS Depression Questionnaire - Intervention PS - Interventions: Yes Attend Stress Management Classes, No Referral to Mental Health, No Referral to [facility] Case Management, No Referral to Physician, No Uses Stress Management Skills - Education Gave educational materials for:: Coping techniques, Signs & symptoms of depression, Stress management, Relaxation techniques - Patient/Program Goal Preventative Medication(s):: Aspirin, Clopidogrel, Beta becca, Statin/lipid - Assistive Devices Assistive Devices:: None Fall Risk Assessed:: Yes Patient Health Questionnaire Initial Assessment 1. Little interest or pleasure in doing things: Not at all 2. Feeling down, depressed, or hopeless: Not at all 3. Trouble falling or staying asleep, or sleeping too much: Not at all 4. Feeling tired or having little energy: More than half the days 5. Poor appetite or overeating: Nearly every day 6. Feeling bad about yourself -- or that you are a failure or have let yourself or your family down: Not at all 7. Trouble concentrating on things, such as reading the newspaper or watching television: Not at all 8. Moving or speaking so slowly that other people could have noticed. Or the opposite - being so fidgety or restless that you have been moving around a lot more than usual: Not at all 9. Thoughts that you would be better off , or of hurting yourself in some way: Not at all How difficult have these problems made it for you to do your work, take care of things at home, or get along with other people?: Somewhat difficult Total Score: 5 HUDSON-Q SV Test - Statements CAD is a disease of the arteries in the heart: False Examples of risk factors for heart disease: True Angina is chest pain or discomfort: True The benefits of resistance training include: True Eating more meat and dairy products: False Anti-platelet medications such as aspirin are important: True The only effective way to manage stress: False An exercise warm-up slowly increases heart rate: True Prepared, processed foods usually have high sodium: True Depression is common after a heart attack: True The statin medications lower cholesterol: I Don't Know To control blood pressure, lower the amount of sodium: True If someone gets chest discomfort during walking: False Transfats are partially hydrogenated vegetable oils: I Don't Know Sleep apnea that is not treated increases the risk: False To control cholesterol, one should become a vegetarian: False Someone knows if he/she is exercising at the right level: True Diabetes cannot be prevented with exercise & health eating: False Stress is a large risk for heart attack: True A diet that can help lower blood pressure is rich in: True - Total Score Total Correct Responses: 18 Self-Efficacy Initial Assessment We would like to know how confident you are in doing certain activities. Please select your confidence level for:: Select your confidence level for the following using the scale 1-10 where 1 is not at all confident and 10 is totally confident. Your score is the average of all 6 responses. Fatigue: How confident are you that you can keep the fatigue caused by your disease from interfering with the things you want to do? Select Number: 9 Physical Discomfort or Pain: How confident are you that you can keep the physical discomfort or pain of your disease from interfering with the things you want to do? Select Number: 9 Emotional Distress: How confident are you that you can keep the emotional distress caused by your disease from interfering with the things you want to do? Select Number: 9 Other Symptoms or Health Problems: How confident are you that you can keep other symptoms or health problems from interfering with the things you want to do? Select Number: 9 Different Tasks and Activities: How confident are you that you can do the different tasks and activities needed to manage your health condition so as to reduce your need to see a doctor? Select Number: 9 Medication: How confident are you that you can do things other than just taking medication to reduce how much your illness affects your everyday life? Select Number: 9 Total Score:: 9 Nutrition Survey - Nutrition Survey Instructions Scoring Instructions: Scoring is as follows: Yes = 1 points. No = 0 point. Patient score that is >/=12 is considered to be at potential nutritional risk and could benefit from a referral to a registered dietitian. - Nutrition Survey Initial Have you lost >10 lbs over the past 2 months without trying?: Yes Are you following a special diet at home for diabetes, low fat, or low salt?: No Are you interested in meeting with a dietitian for help understanding your diet?: No Do you eat less than 3 meals a day?: Yes Do you eat fatty meats (cox, sausage, ribs, etc), fried foods, desserts, large amounts of salad dressings, margarine, butter, or cheese most days?: Yes Do you have food allergies? [Enter types in comment field]: Yes - lactose intollerance; some dairy products. Do you eat in restaurants more than 3 times a week?: Yes Do you season food with salt, seasoning salt, or garlic salt?: No Do you used canned, boxed, frozen meals, or soups, seasoning packets?: No Total Score:: 5
[2018-09-15 09:13] VITALS: BP 140/78
== END ==
PROVIDERS: Family Provider Physician Assistant; PCP Physician Assistant; Referring Provider Internal Medicine Cardiovascular Disease; Visit Provider Internal Medicine Cardiovascular Disease
DX: Z95.5 Presence of coronary angioplasty implant and graft (principal)

== ENCOUNTER 2018-10-09 08:00 | Outpatient (RCR) | payer MEDICARE, SELFPAY ==
[2018-07-10 14:12] VITALS: BMI 24.7
[2018-09-15 08:46] VITALS: BMI 24.5
== END 2018-10-09 23:59 ==
LOC: CR 08:00
PROVIDERS: Family Provider Physician Assistant; PCP Physician Assistant; Referring Provider Internal Medicine Cardiovascular Disease; Visit Provider Internal Medicine Cardiovascular Disease
DX: I25.10 Atherosclerotic heart disease of native coronary artery without angina pectoris (principal); Z95.5 Presence of coronary angioplasty implant and graft
CPT/HCPCS: 93798

== ENCOUNTER → 2018-10-30 06:41 | Outpatient (CLI) | payer MEDICARE, SELFPAY ==
[2018-07-10 14:12] VITALS: BMI 24.7
[2018-10-28 09:26] VITALS: BMI 23.8
--- NOTE | 2018-10-30 12:24 | STRESSREP ---
Stress Test Report Exercise myocardial perfusion stress test. 68-year-old man with a history of chest pain. Stress protocol: Resting EKG demonstrates normal sinus rhythm with a rate of 60 bpm resting blood pressures 132/82 mmHg. LVH changes are noted. The patient exercised according to regular Thomas protocol for total duration of 8 minutes and 31 seconds. The maximum heart rate attained was 127 bpm which was 83% of maximum predicted heart rate the maximum workload was 10.1 metabolic equivalents. At rest there were downsloping ST depression noted in leads II, III and aVF as well as the lateral leads. During exercise the above changes persisted to approximately 1 mm. The above are not necessarily diagnostic of ischemia. The resting blood pressure is 132/82 with a peak blood pressure of 180/80 mmHg. No clinical angina was noted the patient experienced leg discomfort. On termination of the test patient started feeling better. Myocardial perfusion protocol. 11.7 mCi of technetium 99m sestamibi was injected at rest. The patient exercised according to regular Thomas protocol for 8-1/2 minutes. At peak exercise 33.9 mCi of technetium 99m sestamibi was injected stress images were obtained stress and rest images were reconstructed and compared in the short axis vertical long and horizontal long axis. Gated images were also obtained Perfusion SPECT analysis: Review of the stress images demonstrate normal cardiac silhouette size. There is mild reduction noted in the anterior septal wall on the stress images and the resting images to a similar extent. The lateral wall is well perfused as well as the mid anterior wall. No areas of reversibility are noted suggest ischemia. Gated SPECT analysis: The gated ejection fraction is noted to be 54%. Conclusion: Exercise stress test with suggestive but not diagnostic EKG changes of ischemia at a high workload. No clinical angina noted #9 Excellent functional capacity. No obvious ischemia noted.
== END ==
PROVIDERS: Family Provider Physician Assistant; PCP Physician Assistant; Referring Provider Internal Medicine Cardiovascular Disease; Visit Provider Internal Medicine Cardiovascular Disease
DX: R07.9 Chest pain, unspecified (principal)
CPT/HCPCS: 78452; 93017; A9500; A4216

== ENCOUNTER 2018-11-04 08:00 | Outpatient (RCR) | payer MEDICARE, SELFPAY ==
[2018-07-10 14:12] VITALS: BMI 24.7
[2018-09-15 08:46] VITALS: BMI 24.5
[2018-10-16 07:06] VITALS: BP 142/84; BP 206/108
--- NOTE | 2018-10-16 07:06 | CR.ITP_ITS ---
Exercise - 30-day Assessment - Visit Date of Eval: 10/16/18 Session #:: 9 - missed due to flu like symptoms - Stages of Change Stages of Change:: Action - Physician Prescribed Exercise Modalities: Cholo Herrera Frequency (days/week): 3 Duration (Minutes):: 30-45 Intensity: 60-80% age predicted maximum heart rate reserve METs - Progression: 0.5-1.0 MET, RPE 11-14 WEEK: 5.7 Target Heart Rate:: 98-130 with max HR 134 - Hypertension Resting Blood Pressure:: 142/84 Peak Exercise Blood Pressure:: 206/108 Medication Changes:: Yes - DC'd Brilinta and added Plavix due to shortness of breath. - Intervention Home Exercise/Activity Goal:: Moderate Exercise 30 min/day x 5 days/wk - Education Goals:: Warm-up, RPE MADAY Scale, S/S, Safe Exercise, Self-Monitoring - Exercise Program Goals Exercise Program Goals: Aerobic Activity >30 min Nutrition - 30-Day Assessment - Program Goals Nutrition Program Goals: LDL <70. Total Cholesterol <200. HDL >45. Triglycerides <150. HgbA1C <7%. BMI <25 - Visit Date of Eval: 10/16/18 - Stages of Change Stages of Change:: Action - Lipids Has the patient seen the dietitian?: No - Diabetes Diabetes:: No Insulin: No Non-Insulin Dependent?: No - Weight Management Weight:: 169 lb - Intervention Referral to dietitian:: No Referral to Diabetic Clinic:: No Will attend diet classes:: Yes - Education Attended class for:: Healthy eating Tobacco - Initial Assessment - Program Goals Tobacco Program Goals: Complete smoking cessation. Attend education classes. Improve Knowledge Test score - Learning Barriers Learning Barriers: Ready to Learn Tobacco - 30-Day Assessment - Program Goals Tobacco Program Goals: Complete smoking cessation. Attend education classes. Improve Knowledge Test score - Stage of Change Stages of Change:: Action - Learning Barriers Learning Barriers: Participates in education, Change in behavior - Family Support Do you have family support?: Yes - Tobacco Use Tobacco Use: Non-smoker Do you use smokeless tobacco?: No - Intervention Smoking Cessation Referral:: No Individual Education/Counseling:: No Education Schedule Given:: Yes - Education Attended class for:: Coronary artery disease, Risk factors, Sexuality, Medical compliance, Cardiac A&P, Angina signs & symptoms Psychosocial - Initial Assess - Target Goals Target Goals: Assess presence or absence of depression. Using a valid screening tool, maximizes coping skills. Positive support system - Psychosocial Test Tool Used:: HANDS Depression Questionnaire - Assistive Devices Fall Risk Assessed:: Yes Psychosocial - 30-Day Assess - Target Goals Target Goals: Assess presence or absence of depression. Using a valid screening tool, maximizes coping skills. Positive support system - Stages of Change Stages of Change:: Action - Psychosocial Test Tool Used:: HANDS Depression Questionnaire - Intervention PS - Interventions: Yes Attend Stress Management Classes, No Referral to Mental Health, No Referral to [facility] Case Management, No Referral to Physician, No Uses Stress Management Skills - Education Attended classes for:: Coping techniques, Signs & symptoms of depression, Stress management, Relaxation techniques - Patient/Program Goal Preventative Medication(s):: Aspirin, Clopidogrel, Beta becca, Statin/lipid - Assistive Devices Assistive Devices:: None Fall Risk Assessed:: Yes Patient Health Questionnaire 30-Day Re-eval Assessment 1. Little interest or pleasure in doing things: Not at all 2. Feeling down, depressed, or hopeless: Not at all 3. Trouble falling or staying asleep, or sleeping too much: Not at all 4. Feeling tired or having little energy: More than half the days 5. Poor appetite or overeating: Several days 6. Feeling bad about yourself -- or that you are a failure or have let yourself or your family down: Nearly every day 7. Trouble concentrating on things, such as reading the newspaper or watching television: Not at all 8. Moving or speaking so slowly that other people could have noticed. Or the opposite - being so fidgety or restless that you have been moving around a lot more than usual: Not at all 9. Thoughts that you would be better off , or of hurting yourself in some way: Not at all How difficult have these problems made it for you to do your work, take care of things at home, or get along with other people?: Somewhat difficult Total Score: 6 Self-Efficacy 30-Day Re-eval Assessment We would like to know how confident you are in doing certain activities. Please select your confidence level for:: Select your confidence level for the following using the scale 1-10 where 1 is not at all confident and 10 is totally confident. Your score is the average of all 6 responses. Fatigue: How confident are you that you can keep the fatigue caused by your disease from interfering with the things you want to do? Select Number: 9 Physical Discomfort or Pain: How confident are you that you can keep the physical discomfort or pain of your disease from interfering with the things you want to do? Select Number: 9 Emotional Distress: How confident are you that you can keep the emotional distress caused by your disease from interfering with the things you want to do? Select Number: 9 Other Symptoms or Health Problems: How confident are you that you can keep other symptoms or health problems from interfering with the things you want to do? Select Number: 9 Different Tasks and Activities: How confident are you that you can do the different tasks and activities needed to manage your health condition so as to reduce your need to see a doctor? Select Number: 9 Medication: How confident are you that you can do things other than just taking medication to reduce how much your illness affects your everyday life? Select Number: 9 Total Score:: 9
== END 2018-11-08 23:59 ==
LOC: CR 08:00
PROVIDERS: Family Provider Physician Assistant; PCP Physician Assistant; Referring Provider Internal Medicine Cardiovascular Disease; Visit Provider Internal Medicine Cardiovascular Disease
DX: I25.10 Atherosclerotic heart disease of native coronary artery without angina pectoris (principal); Z95.5 Presence of coronary angioplasty implant and graft
CPT/HCPCS: 93798

== ENCOUNTER 2018-11-30 08:00 | Outpatient (RCR) | payer MEDICARE, SELFPAY ==
[2018-07-10 14:12] VITALS: BMI 24.7
[2018-10-28 09:26] VITALS: BMI 23.8
[2018-11-09 00:52] VITALS: BP 142/84; BP 206/108
--- NOTE | 2018-11-16 07:06 | CR.ITP_ITS ---
Exercise - 60-Day Assessment - Visit Date of Eval: 11/16/18 Session #:: 18 - 18 24 scheduled - Stages of Change Stages of Change:: Action - Physician Prescribed Exercise Modalities: Treadmill, Rower, Airdyne, NuStep Frequency (days/week): 3 Duration (Minutes):: 30-45 Intensity: 60-80% age predicted maximum heart rate reserve METs - Progression: 0.5-1.0 MET, RPE 11-14 WEEK: 6.2 Target Heart Rate:: 98-130 w max HR 131 - Hypertension Resting Blood Pressure:: 138/84 Peak Exercise Blood Pressure:: 200/98 Medication Changes:: Yes - Intervention Home Exercise/Activity Goal:: Moderate Exercise 30 min/day x 5 days/wk - Education Goals:: Warm-up, RPE MADAY Scale, S/S, Safe Exercise, Self-Monitoring - Exercise Program Goals Exercise Program Goals: Aerobic Activity >30 min Nutrition - 60-Day Assessment - Program Goals Nutrition Program Goals: LDL <70. Total Cholesterol <200. HDL >45. Triglycerides <150. HgbA1C <7%. BMI <25 - Visit Date of Eval: 11/16/18 - Stages of Change Stages of Change:: Action - Lipids Has the patient seen the dietitian?: No - Diabetes Diabetes:: No Insulin: No Non-Insulin Dependent?: No - Weight Management Weight:: 171 lb - Intervention Referral to dietitian:: No Referral to Diabetic Clinic:: No Will attend diet classes:: Yes - Education Attended class for:: Healthy eating Tobacco - Initial Assessment - Program Goals Tobacco Program Goals: Complete smoking cessation. Attend education classes. Improve Knowledge Test score - Learning Barriers Learning Barriers: Ready to Learn Tobacco - 60-Day Assessment - Program Goals Tobacco Program Goals: Complete smoking cessation. Attend education classes. Improve Knowledge Test score - Stage of Change Stages of Change:: Action - Learning Barriers Learning Barriers: Participates in education, Change in behavior - Family Support Do you have family support?: Yes - Tobacco Use Tobacco Use: Non-smoker Do you use smokeless tobacco?: No - Intervention Smoking Cessation Referral:: No Education Schedule Given:: Yes - Education Attended class for:: Coronary artery disease, Risk factors, Sexuality, Medical compliance, Cardiac A&P, Angina signs & symptoms Psychosocial - Initial Assess - Target Goals Target Goals: Assess presence or absence of depression. Using a valid screening tool, maximizes coping skills. Positive support system - Psychosocial Test Tool Used:: HANDS Depression Questionnaire - Assistive Devices Fall Risk Assessed:: Yes Psychosocial - 60-Day Assess - Target Goals Target Goals: Assess presence or absence of depression. Using a valid screening tool, maximizes coping skills. Positive support system - Stages of Change Stages of Change:: Action - Psychosocial Test Tool Used:: HANDS Depression Questionnaire - Intervention PS - Interventions: Yes Attend Stress Management Classes, No Referral to Mental Health, No Referral to [facility] Case Management, No Referral to Physician, No Uses Stress Management Skills - Education Attended classes for:: Coping techniques, Signs & symptoms of depression, Stress management, Relaxation techniques - Patient/Program Goal Preventative Medication(s):: Aspirin, Clopidogrel, Beta becca, Statin/lipid - Assistive Devices Assistive Devices:: None Fall Risk Assessed:: Yes Patient Health Questionnaire 60-Day Re-eval Assessment 1. Little interest or pleasure in doing things: Not at all 2. Feeling down, depressed, or hopeless: Not at all 3. Trouble falling or staying asleep, or sleeping too much: Not at all 4. Feeling tired or having little energy: Not at all 5. Poor appetite or overeating: Not at all 6. Feeling bad about yourself -- or that you are a failure or have let yourself or your family down: Not at all 7. Trouble concentrating on things, such as reading the newspaper or watching television: Not at all 8. Moving or speaking so slowly that other people could have noticed. Or the opposite - being so fidgety or restless that you have been moving around a lot more than usual: Not at all 9. Thoughts that you would be better off , or of hurting yourself in some way: Not at all Total Score: 0 Self-Efficacy 60-Day Re-eval Assessment We would like to know how confident you are in doing certain activities. Please select your confidence level for:: Select your confidence level for the following using the scale 1-10 where 1 is not at all confident and 10 is totally confident. Your score is the average of all 6 responses. Fatigue: How confident are you that you can keep the fatigue caused by your disease from interfering with the things you want to do? Select Number: 9 Physical Discomfort or Pain: How confident are you that you can keep the physical discomfort or pain of your disease from interfering with the things you want to do? Select Number: 9 Emotional Distress: How confident are you that you can keep the emotional distress caused by your disease from interfering with the things you want to do? Select Number: 10 Other Symptoms or Health Problems: How confident are you that you can keep other symptoms or health problems from interfering with the things you want to do? Select Number: 10 Different Tasks and Activities: How confident are you that you can do the different tasks and activities needed to manage your health condition so as to reduce your need to see a doctor? Select Number: 10 Medication: How confident are you that you can do things other than just taking medication to reduce how much your illness affects your everyday life? Select Number: 10 Total Score:: 9
[2018-11-16 07:09] VITALS: BP 138/84; BP 200/98
== END 2018-12-09 23:59 ==
LOC: CR 08:00
PROVIDERS: Family Provider Physician Assistant; PCP Physician Assistant; Referring Provider Internal Medicine Cardiovascular Disease; Visit Provider Internal Medicine Cardiovascular Disease
DX: I25.10 Atherosclerotic heart disease of native coronary artery without angina pectoris (principal); Z95.5 Presence of coronary angioplasty implant and graft
CPT/HCPCS: 93798

== ENCOUNTER 2018-12-23 08:00 | Outpatient (RCR) | payer MEDICARE, SELFPAY ==
[2018-07-10 14:12] VITALS: BMI 24.7
[2018-10-28 09:26] VITALS: BMI 23.8
[2018-12-10 00:50] VITALS: BP 138/84; BP 200/98
--- NOTE | 2018-12-16 07:16 | CR.ITP_ITS ---
General Information - General Information Admitting Diagnosis: PCI with Stent - Education/Goals Cardiac Rehabilitation Goals: 1. Maintain the individual as the primary focus of care. 2. To improve the patient's quality of life. 3. Identification of cardiac risk factors and provide cardiac risk factor management. 4. Enhance the psychosocial status of the patient. 5. Reconditioning enough to allow the patient to resume customary activities. 6. Control symptoms of cardiac disease Scale for measuring improvement of personal goals: Enter appropriate number in Comments. 2 = Unchanged. 3 = Slightly Better. 4 = Moderate Improvement. 5 = Met my Goal Exercise - 90-Day Assessment - Visit Date of Eval: 12/16/18 Session #:: 34 - Stages of Change Stages of Change:: Action - Physician Prescribed Exercise Modalities: Treadmill, NuStep Frequency (days/week): 3 Duration (Minutes):: 30-45 Intensity: 60-80% age predicted maximum heart rate reserve METs - Progression: 0.5-1.0 MET, RPE 11-14 WEEK: 6.2 Target Heart Rate:: 98-130 Max HR 134 - Hypertension Resting Blood Pressure:: 140/84 Peak Exercise Blood Pressure:: 158/82 - Intervention Home Exercise/Activity Goal:: Sitting Time <3 hrs/day - Education Goals:: Warm-up, RPE MADAY Scale, S/S, Safe Exercise, Self-Monitoring - Exercise Program Goals Exercise Program Goals: Aerobic Activity >30 min, B/P <130/80 Nutrition - 90-Day Assessment - Program Goals Nutrition Program Goals: LDL <70. Total Cholesterol <200. HDL >45. Triglycerides <150. HgbA1C <7%. BMI <25 - Visit Date of Eval: 12/16/18 - Stages of Change Stages of Change:: Action - Weight Management Weight:: 77.564 kg - Intervention Referral to dietitian:: No Referral to Diabetic Clinic:: No Will attend diet classes:: Yes - Education Attended class for:: Signs & symptoms of hypoglycemia, Signs & symptoms of hyperglycemia, Relate diabetes to coronary artery disease, Healthy eating Tobacco - Initial Assessment - Program Goals Tobacco Program Goals: Complete smoking cessation. Attend education classes. Improve Knowledge Test score - Learning Barriers Learning Barriers: Ready to Learn Tobacco - 90-Day Assessment - Program Goals Tobacco Program Goals: Complete smoking cessation. Attend education classes. Improve Knowledge Test score - Stage of Change Stages of Change:: Action - Learning Barriers Learning Barriers: Participates in education - Family Support Do you have family support?: Yes - Tobacco Use Do you use smokeless tobacco?: No - Intervention Smoking Cessation Referral:: No Individual Education/Counseling:: No Education Schedule Given:: Yes - Education Attended class for:: Treating Heart Disease, How The Heart Works, What it means to have Heart Disease, How Coronary Artery Disease is Diagnosed, Heart Procedures, What Heart Medications Do, Risk Factors & Modifications, Living an Active Life, Nutrition, Emotions & Heart Disease, Stress Management & Relaxation, Sleep Disorders & Heart Disease Psychosocial - Initial Assess - Target Goals Target Goals: Assess presence or absence of depression. Using a valid screening tool, maximizes coping skills. Positive support system - Psychosocial Test Tool Used:: HANDS Depression Questionnaire - Assistive Devices Fall Risk Assessed:: Yes Psychosocial - 90-Day Assess - Target Goals Target Goals: Assess presence or absence of depression. Using a valid screening tool, maximizes coping skills. Positive support system - Stages of Change Stages of Change:: Action - Psychosocial Test Tool Used:: HANDS Depression Questionnaire - Intervention PS - Interventions: Yes Attend Stress Management Classes, Yes Uses Stress Management Skills, No Referral to Mental Health, No Referral to [facility] Case Managem ent, No Referral to Physician - Education Attended classes for:: Coping techniques, Signs & symptoms of depression, Stress management, Relaxation techniques - Assistive Devices Assistive Devices:: None Fall Risk Assessed:: Yes Patient Health Questionnaire 90-Day Re-eval Assessment 1. Little interest or pleasure in doing things: Not at all 2. Feeling down, depressed, or hopeless: Not at all 3. Trouble falling or staying asleep, or sleeping too much: Not at all 4. Feeling tired or having little energy: Not at all 5. Poor appetite or overeating: Not at all 6. Feeling bad about yourself -- or that you are a failure or have let yourself or your family down: Not at all 7. Trouble concentrating on things, such as reading the newspaper or watching television: Not at all 8. Moving or speaking so slowly that other people could have noticed. Or the opposite - being so fidgety or restless that you have been moving around a lot more than usual: Not at all 9. Thoughts that you would be better off , or of hurting yourself in some way: Not at all How difficult have these problems made it for you to do your work, take care of things at home, or get along with other people?: Not difficult at all Total Score: 0 Self-Efficacy 90-Day Re-eval Assessment We would like to know how confident you are in doing certain activities. Please select your confidence level for:: Select your confidence level for the following using the scale 1-10 where 1 is not at all confident and 10 is totally confident. Your score is the average of all 6 responses. Fatigue: How confident are you that you can keep the fatigue caused by your disease from interfering with the things you want to do? Select Number: 9 Physical Discomfort or Pain: How confident are you that you can keep the physical discomfort or pain of your disease from interfering with the things you want to do? Select Number: 9 Emotional Distress: How confident are you that you can keep the emotional distress caused by your disease from interfering with the things you want to do? Select Number: 10 Other Symptoms or Health Problems: How confident are you that you can keep other symptoms or health problems from interfering with the things you want to do? Select Number: 10 Different Tasks and Activities: How confident are you that you can do the diffe rent tasks and activities needed to manage your health condition so as to reduce your need to see a doctor? Select Number: 10 Medication: How confident are you that you can do things other than just taking medication to reduce how much your illness affects your everyday life? Select Number: 10 Total Score:: 9
[2018-12-16 07:23] VITALS: BP 140/84; BP 158/82
== END 2019-01-09 23:59 ==
LOC: CR 08:00
PROVIDERS: Family Provider Physician Assistant; PCP Physician Assistant; Referring Provider Internal Medicine Cardiovascular Disease; Visit Provider Internal Medicine Cardiovascular Disease
DX: I25.10 Atherosclerotic heart disease of native coronary artery without angina pectoris (principal); Z95.5 Presence of coronary angioplasty implant and graft
CPT/HCPCS: 93798

== ENCOUNTER → 2020-03-28 09:45 | Outpatient (CLI) | payer MEDICARE, SELFPAY ==
[2018-07-10 14:12] VITALS: BMI 24.7
[2020-03-13 09:24] VITALS: BMI 24.5
--- NOTE | 2020-03-29 13:22 | PFT ---
INTRODUCTION: The patient is a 69-year-old male that presents for pulmonary function studies secondary to a diagnosis of primary hypertension. Respiratory therapy reports good patient effort. Bronchodilators were used during testing. INTERPRETATION: Forced expiration spirometry demonstrates the presence of a severe large airways obstructive ventilatory defect. There was a significant response to aerosolized bronchodilators noted. Spirograms are of good quality and do not plateau indicating slow emptying of the lungs. Body plethysmography was performed and revealed an elevated TLC and RV, indicative of underlying hyperinflation and air trapping. Diffusing capacity by single breath CO is reduced at 68% of predicted. IMPRESSION: Partially reversible severe large airways obstructive ventilatory defect with associated hyperinflation, air trapping and reduction in diffusing capacity.
== END ==
PROVIDERS: PCP Physician Assistant; Referring Provider Physician Assistant Medical; Visit Provider Physician Assistant Medical
DX: I25.10 Atherosclerotic heart disease of native coronary artery without angina pectoris (principal); I10 Essential (primary) hypertension; E78.00 Pure hypercholesterolemia, unspecified; R06.00 Dyspnea, unspecified
CPT/HCPCS: 94060; 94726; 94729

== ENCOUNTER → 2021-01-03 12:35 | Outpatient (CLI) | payer MEDICARE, SELFPAY ==
[2018-07-10 14:12] VITALS: BMI 24.7
[2020-11-02 09:07] VITALS: BMI 26.1
--- NOTE | 2021-01-03 12:47 | CT_ITS ---
STUDY: LOW DOSE CT LUNG CANCER SCREENING REASON FOR EXAM: Male, 70 years old. Tobacco Dependency. Patient smokes half a pack per day for 55 years. RADIATION DOSAGE (If Supplied By Facility): CTDIvol = ( 3.02 ) mGy, DLP = ( 115.88 ) mGycm TECHNIQUE: No contrast was administered. Low dose technique was utilized (average mAS-38 and kVp 120). 1.25 mm axial source images with a slice interval of 1.25-mm were reconstructed in lung windows. 2.5 mm axial source images with a slice interval of 2.5-mm were reconstructed in lung windows. 5.0 mm axial source images with a slice interval of 5.0-mm were reconstructed in soft tissue windows. Nodule measured using lung windows on PACS and/or independent workstation with automated measurement of minimum and maximum diameter. Nodule measurement reported as average diameter rounded to the nearest whole number. Growth is defined as an increase ins size of greater than 1.5 mm. COMPARISON: None. NODULES: No suspicious nodules are seen. Emphysema: Hyperinflation. Mild degree of emphysematous changes. Mild scarring in the posterior medial segments of both lower lobes with mild bronchiectasis slightly more prominent on the right side. Endobronchial lesion: None Aorta: Atherosclerotic calcification. Coronary arteries: Coronary artery calcification. Heart: Unremarkable Pulmonary artery: Mediastinal nodes: Small benign-appearing mediastinal lymph nodes. Other chest and abdominal findings: CT/Low Dose CT Lung Screening IMPRESSION: Lung-RADS category 2 - Continue annual screening with LDCT in 12 months. IMPORTANT NOTES FOR USE: ACR Lung-RADS Version 1.1 Assessment Categories Release Date: 2018 Category: Coded 0-4 bases on nodule(s) with highest degree of suspicion. Negative screen is defined as categories 1 and 2; a positive screen is defined as categories 3 and 4. Category 3 and 4A nodules that are unchanged on interval CT should be coded as category 2, and individuals returned to screening in 12 months. Category 4X: Category 3 or 4 nodules with additional imaging findings that increase the suspicion of lung cancer, such as spiculation, GGN that doubles in size in 1 year, enlarged lymph notes, etc. Category Modifiers: S (significant finding unrelated to lung cancer) Electronically Signed: Noel Claudio MD at 15:12 EDT , Service support ,
== END ==
PROVIDERS: PCP Physician Assistant; Referring Provider Internal Medicine Critical Care Medicine; Visit Provider Internal Medicine Critical Care Medicine
DX: Z12.2 Encounter for screening for malignant neoplasm of respiratory organs (principal); F17.210 Nicotine dependence, cigarettes, uncomplicated
CPT/HCPCS: 71271

== ENCOUNTER → 2022-01-04 | Outpatient (CLI) | payer MEDICARE, SELFPAY ==
[2018-07-10 14:12] VITALS: BMI 24.7
--- NOTE | 2022-01-04 14:24 | CT_ITS ---
STUDY: LOW DOSE CT LUNG CANCER SCREENING REASON FOR EXAM: Male, 71 years old. Former smoker. Quit 6 months ago. 4 cigarettes a day for 45 years. RADIATION DOSAGE (If Supplied By Facility): CTDIvol = ( 2.39 ) mGy, DLP = ( 67.59 ) mGycm TECHNIQUE: No contrast was administered. Low dose technique was utilized (average mAS-38 and kVp 120). 1.25 mm axial source images with a slice interval of 1.25-mm were reconstructed in lung windows. 2.5 mm axial source images with a slice interval of 2.5-mm were reconstructed in lung windows. 5.0 mm axial source images with a slice interval of 5.0-mm were reconstructed in soft tissue windows. COMPARISON: Chest, 07/09/2018. NODULES: Total lung nodules (excluding granulomas): 0 Emphysema: The lungs are hyperexpanded but without evidence of emphysema. Endobronchial lesion: None Aorta: Atherosclerotic tortuosity without aneurysm. CORONARY ARTERIES: Coronary artery calcifications are present. Heart: Normal Pulmonary artery: Normal Mediastinal nodes: Not Other chest and abdominal findings: Small retrocardiac hiatal hernia. Mild degenerative changes of the thoracic spine. CT/Low Dose CT Lung Screening IMPRESSION: Lung-RADS category 1 - Continue annual screening with LDCT in 12 months. IMPORTANT NOTES FOR USE: ACR Lung-RADS Version 1.1 Assessment Categories Release Date: 2018 Category: Coded 0-4 bases on nodule(s) with highest degree of suspicion. Negative screen is defined as categories 1 and 2; a positive screen is defined as categories 3 and 4. Category 3 and 4A nodules that are unchanged on interval CT should be coded as category 2, and individuals returned to screening in 12 months. Category 4X: Category 3 or 4 nodules with additional imaging findings that increase the suspicion of lung cancer, such as spiculation, GGN that doubles in size in 1 year, enlarged lymph notes, etc. Category Modifiers: S (significant finding unrelated to lung cancer) Electronically Signed: Jose Boone DO at 21:08 EDT Reading Location ID and State: [address] [place] [address] Tel [phone], Service support ,
== END | disposition home or self-care (01) ==
LOC: CT 14:24
PROVIDERS: PCP Physician Assistant; Referring Provider Nurse Practitioner Acute Care; Visit Provider Nurse Practitioner Acute Care
DX: Z12.2 Encounter for screening for malignant neoplasm of respiratory organs (principal); Z87.891 Personal history of nicotine dependence
CPT/HCPCS: 71271

== ENCOUNTER 2022-01-27 09:39 | Emergency (ER) | payer MEDICARE, SELFPAY ==
[2018-07-10 14:12] VITALS: BMI 24.7
[2022-01-27 09:42] VITALS: BP 188/111; PULSE 86; RESP 18; TEMP 36.7; O2SAT 94; BMI 24.3
--- NOTE | 2022-01-27 09:45 | EDS_ITS ---
HPI History of Present Illness Chief Complaint: Neuro S/Sx Narrative Narrative: 71-year-old male presenting with facial droop on the right side of his face since last night at 7 PM. He does not have any trouble moving his extremities. He denies any paresthesias. He denies headache. Denies visual complaints. He states this is new for him. He feels otherwise well. [facility] Medical History Atherosclerotic heart disease of [place] coronary artery without angina pectoris CAP (community acquired pneumonia) COPD (chronic obstructive pulmonary disease) Essential (primary) hypertension Hyperlipidemia Nicotine dependence Tobacco abuse Tobacco dependence in remission Home Medications aspirin 81 mg tablet,delayed release 81 mg PO DAILY@0800 #30 tabs 07/11/18 [Rx Last Taken Unknown] nitroglycerin 0.4 mg sublingual tablet 0.4 mg sublingual Q5M PRN Angina pain #25 tabs 09/01/18 [Rx Last Taken Unknown] atorvastatin 40 mg tablet 40 mg PO DAILY #90 tabs 08/27/21 [Rx Last Taken Unknown] isosorbide mononitrate 30 mg tablet,extended release 24 hr 30 mg PO DAILY #90 tabs 10/26/21 [Rx Last Taken Unknown] carvedilol 6.25 mg tablet 6.25 mg PO BID #180 tabs 11/28/21 [Rx Last Taken Unknown] losartan 100 mg tablet 100 mg PO DAILY #90 tabs 12/13/21 [Rx Last Taken Unknown] albuterol sulfate 90 mcg/actuation aerosol inhaler (Ventolin HFA) 2 puff inhalation Q4H #8.5 grams 01/02/22 [Rx Last Taken Unknown] fluticasone fur. 100 mcg-umeclid 62.5 mcg-vilant 25 mcg inhalat.powder (Trelegy Ellipta) 1 inh inhalation DAILY #60 ea 01/02/22 [Rx Last Taken Unknown] acyclovir 800 mg tablet 800 mg PO 5X/DAY #35 tabs 01/27/22 [Rx Last Taken Unknown] fluticasone fur. 100 mcg-umeclid 62.5 mcg-vilant 25 mcg inhalat.powder (Trelegy Ellipta) inhalation 01/27/22 [History Last Taken Unknown] prednisone 10 mg tablet 60 mg PO DAILY 7 days #42 tabs 01/27/22 [Rx Last Taken Unknown] Allergy/AdvReac Type Severity Reaction Status Date / Time bee venom protein (honey bee) Allergy Anaphylaxis Verified 01/02/22 07:47 clopidogrel [From Plavix] Allergy rash Verified 01/02/22 07:47 lactose AdvReac Other Verified 01/02/22 07:47 lisinopril AdvReac cough Verified 01/02/22 07:47 Family History Mother CVA (cerebral vascular accident) Father Heart disease Surgical History History of coronary artery stent placement (07/10/18) History of shoulder surgery Social History Smoking Status: Current some day smoker tobacco type: cigarettes second hand exposure: Yes alcohol intake: never substance use type: does not use caffeine: No what type of physical activity do you participate in: running and weight training ROS ROS ED Constitutional Constitutional ED: Denies chills, fever(s) or sweats Eyes Eyes: Denies blurry vision or change in vision ENT ENT ED: Denies ear pain or sore throat Cardiovascular Cardiovascular: Denies chest pain, palpitations or racing heartbeat Respiratory/Chest Respiratory/Chest: Denies cough, dyspnea or sputum Gastrointestinal Gastrointestinal: Denies abdominal pain, constipation, diarrhea, nausea or vomiting Genitourinary Genitourinary ED: Denies dysuria, hematuria or urinary frequency Musculoskeletal Musculoskeletal: Denies arthralgias, myalgias or neck pain Integumentary Denies abscess, Abrasions or rash Neurologic Neurologic: Reports other Details: Facial droop ; Denies headache(s) Psychiatric Psychiatric: Denies anxiety, depression, suicidal ideation or suicidal thoughts Endocrine Endocrinology: Denies polydipsia or polyuria EXAM Physical Exam Const Vital Signs: 01/27/22 09:42 01/27/22 10:16 01/27/22 10:16 Temperature 98.0 F Temperature Source Temporal Pulse Rate 86 74 Respiratory Rate 18 24 H Blood Pressure 188/111 H 164/93 H Blood Pressure Mean 136 116 Pulse Ox 94 96 96 Oxygen Delivery Method Room Air Room Air Room Air 01/27/22 10:30 01/27/22 12:00 Temperature Temperature Source Pulse Rate 71 74 Respiratory Rate 14 18 Blood Pressure 144/91 H 179/90 H Blood Pressure Mean 108 119 Pulse Ox 97 95 Oxygen Delivery Method Room Air Room Air Positive well nourished General Appearance ED: NAD HEENT Reports moist mucous membranes Eyes PERRL and EOMs intact bilaterally General Eye ED: Negative for pale conjunctiva or scleral icterus Neck no lymphadenopathy Resp normal respiratory effort and clear to auscultation bilaterally Auscultation: rales; Negative for rhonchi or wheezes Cardio no murmurs GI normal to inspection, nondistended, normoactive bowel sounds Neuro oriented x3 Sensorium / Orientation: alert Motor Exam: strength 5/5 throughout NIHSS NIHSS Initial: 1a Level of Consciousness: 0 1b LOC Questions (Score 2 if aphasic/stupor): 0 1c LOC Commands (Only score 1st attempt): 0 2 Best Gaze (If aphasic, use reflexive mvmts.): 0 3 Visual: 0 4 Facial Palsy: 2 5 Motor Arm Right (UN = amputation/fusion): 0 5 Motor Arm Left: 0 6 Motor Leg Right: 0 6 Motor Leg Left: 0 7 Limb ataxia (Only + if out of proportion): 0 8 Sensory (Aphasia/stupor=0 or 1, coma=2): 0 9 Best Language: 0 10 Dysarthria (mute, coma=2, intubated=UN): 0 11 Extinction and Inattention (only scored if +): 0 Total Score: 2 MDM MDM MDM Narrative Medical decision making narrative: Patient presenting with facial droop on the right side. He is unable to close his right eye. He does have sparing of the right forehead however he is also able to move his right eyebrow. Given this I suspected an atypical presentation of a Decker's palsy but I felt it was necessary to rule out stroke. Patient has an NIH stroke scale score of 2 based on the facial droop. His CBC, coagulation studies are normal. Renal function electrolytes are normal. High-sensitivity troponin was 16. EKG sinus rhythm at a ventricular rate of 69 bpm without sign of ischemic change or dysrhythmia. Chest x-ray my interpretation shows no acute cardiopulmonary process. CT brain and CTA were both negative. I spoke with the stroke neurologist about his exam as he is presenting with onset of symptoms that began 7-8 o'clock last night. He recommended an MRI. I was able to perform this in the ER today and the MRI was negative for stroke. 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 Patient will be started on prednisone and antivirals. Patient counseled to use lubricating drops in the right eye, and he may need to tape discharge at night to sleep. I discussed with him that he could develop an ulcer knife he does not keep it moist. Patient discharged in stable condition. Impression: 1. Decker's palsy Lab Data Attestation: I reviewed the patient's lab results. Labs: Laboratory Results - last 24 hr 01/27/22 01/27/22 01/27/22 09:47 10:00 10:00 WBC 6.9 RBC 4.36 L Hgb 13.6 Hct 41.1 MCV 94.3 H MCH 31.2 MCHC 33.1 RDW Std Deviation 49.0 H RDW Coeff of Itz 14.2 Plt Count 145 L MPV 10.7 Immature Gran % (Auto) 0.300 Neut % (Auto) 60.1 Lymph % (Auto) 28.8 [place] % (Auto) 8.4 Eos % (Auto) 1.7 Baso % (Auto) 0.7 Absolute Neuts (auto) 4.1 Absolute Lymphs (auto) 1.98 Nucleated RBC % 0 PT 13.8 INR 1.1 APTT 36.8 H Sodium Potassium Chloride Carbon Dioxide Anion Gap BUN Creatinine Estim Creat Clear Calc Est GFR (MDRD) Af Amer Est GFR (MDRD) Non-Af BUN/Creatinine Ratio Glucose Calcium Troponin I High Sens POC Glucose 90 01/27/22 10:00 WBC RBC Hgb Hct MCV MCH MCHC RDW Std Deviation RDW Coeff of [place]z Plt Count MPV Immature Gran % (Auto) Neut % (Auto) Lymph % (Auto) [place] % (Auto) Eos % (Auto) Baso % (Auto) Absolute Neuts (auto) Absolute Lymphs (auto) Nucleated RBC % PT INR APTT Sodium 142 Potassium 3.5 Chloride 108 H Carbon Dioxide 26.0 Anion Gap 8 BUN 12 Creatinine 1.02 Estim Creat Clear Calc 68.59 Est GFR (MDRD) Af Amer 92 Est GFR (MDRD) Non-Af 76 BUN/Creatinine Ratio 11.8 Glucose 83 Calcium 8.3 L Troponin I High Sens 16 POC Glucose Radiography Diagnostic Testing: Clinical Impression(s) from Imaging Studies Brain CT 01/27/22 09:49 IMPRESSION: 1. Chronic involutional changes of the brain. Electronically Signed: Shelton Burgos MD at 10:10 EDT , ADDENDUM: 01/27/22 1018 IMPRESSION: 1. Chronic involutional changes of the brain. N.B. : The above Results were Read Back by Shelton Burgos MD to Jez Coleman DO, DO, and understanding confirmed on 01/27/2022 10:11:47 (ET). Electronically Signed: Shelton Burgos MD at 10:10 EDT , Head/Neck CTA 01/27/22 09:50 IMPRESSION: 1. Normal [place] without a demonstrated aneurysm or hemodynamically significant stenosis. 2. Mild atherosclerotic stenosis of the bilateral origins of the internal carotid arteries.. N.B. : The above Results were Read Back by Shelton Burgos MD to Jez Coleman DO, DO, and understanding confirmed on 01/27/2022 10:23:28 (ET). Electronically Signed: Shelton Burgos MD at 10:24 EDT , ADDENDUM: 01/27/22 1031 IMPRESSION: 1. Normal [place] without a demonstrated aneurysm or hemodynamically significant stenosis. 2. Mild atherosclerotic stenosis of the bilateral origins of the internal carotid arteries.. N.B. : The above Results were Read Back by Shelton Burgos MD to Jez Coleman DO, DO, and understanding confirmed on 01/27/2022 10:23:28 (ET). Electronically Signed: Shelton Burgos MD at 10:24 EDT Reading Location ID and State: [id number] [place] , Service support , Chest X-Ray 01/27/22 10:00 IMPRESSION: No acute process Electronically Signed: Shelton Burgos MD at 10:39 EDT , Brain MRI 01/27/22 11:00 IMPRESSION: 1. Involutional changes of the brain, as described above. 2. No acute infarct or intracranial hemorrhage. Electronically Signed: Shelton Burgos MD at 12:11 EDT , Discharge Plan Triage Chief Complaint: Neuro S/Sx Other Complaint: Stroke Alert ED Provider: Jez Coleman Dx/Rx/DC Orders Instructions: ED Decker's Palsy Prescriptions: New prednisone 10 mg tablet 60 mg PO DAILY 7 Days Qty: 42 0RF acyclovir 800 mg tablet 800 mg PO 5X/DAY Qty: 35 0RF No Action Trelegy Ellipta 100-62.5-25 mcg blister with device 1 inh INHALATION DAILY Qty: 60 11RF albuterol sulfate [Ventolin HFA] 90 mcg/actuation HFA aerosol inhaler 2 puff INHALATION Q4H Qty: 8.5 5RF aspirin 81 MG tablet 81 mg PO DAILY@0800 Qty: 30 0RF Trelegy Ellipta 100-62.5-25 mcg blister with device INHALATION Label Comments: use 1 (ONE) INHALATION DAILY nitroglycerin 0.4 mg tablet, sublingual 0.4 mg Sublingual Q5M PRN (Reason: Angina pain) Qty: 25 3RF atorvastatin 40 mg tablet 40 mg PO DAILY Qty: 90 3RF isosorbide mononitrate 30 mg tablet extended release 24 hr 30 mg PO DAILY Qty: 90 3RF carvedilol 6.25 mg tablet 6.25 mg PO BID Qty: 180 3RF losartan 100 mg tablet 100 mg PO DAILY Qty: 90 3RF Primary Care Provider: Silvreio Ponce Referrals: Silverio Ponce, PA [Primary Care Provider] - Disposition Disposition: Home, Self Care
--- NOTE | 2022-01-27 09:49 | CT_ITS ---
We are attempting to reach an attending provider to discuss findings. An addendum with communication details will be sent when the communication is complete. STUDY: CT HEAD STROKE PROTOCOL W/O CONTRAST INJECTION REASON FOR EXAM: Male, 71 years old. Neuro deficit, acute, stroke suspected RADIATION DOSAGE (If Supplied By Facility): CTDIvol = ( ) mGy, DLP = ( ) mGycm TECHNIQUE: Transaxial CT imaging of the brain was performed without administration of intravenous contrast material. Individualized dose optimization techniques were used for this CT. COMPARISON: No relevant priors. FINDINGS: No demonstrated dense artery sign or sulcal effacement or focal parenchymal edema that would indicate acute infarction by CT criteria. Normal soft tissue structures. Normal calvarium. There is mild cerebral atrophy with widening of the extra-axial spaces and ventricular dilatation. Normal white matter tracts of the cerebral hemispheres. Normal basal ganglia and thalami. Normal brainstem. Normal cerebellum. There is no intracranial hemorrhage. There are no findings of an acute ischemic infarction. Normal visualized paranasal sinuses. ASPECT score: 10 CT/STROKE Brain/Head without Cont IMPRESSION: 1. Chronic involutional changes of the brain. Electronically Signed: Shelton Burgos MD at 10:10 EDT ,
--- NOTE | 2022-01-27 09:49 | EKG12_ITS ---
Test Reason : WEAKNESS Blood Pressure : / mmHG Vent. Rate : 069 BPM Atrial Rate : 069 BPM P-R Int : 150 ms QRS Dur : 060 ms QT Int : 444 ms P-R-T Axes : 068 027 -46 degrees QTc Int : 475 ms Poor data quality, interpretation may be adversely affected Normal sinus rhythm Septal infarct , age undetermined Abnormal ECG Confirmed by LOKESH BAILEY MD ([id number]), scientific publications editor ESTELLE PANCHAL ([id number]) on 01/28/2022 10:49:39 AM Referred By: Confirmed By:LOKESH BAILEY MD
--- NOTE | 2022-01-27 09:50 | CT_ITS ---
STUDY: CTA HEAD AND NECK WITH CONTRAST REASON FOR EXAM: Male, 71 years old. Neuro deficit, acute, stroke suspected RADIATION DOSAGE (If Supplied By Facility): CTDIvol = ( 22.10 ) mGy, DLP = ( 777.44 ) mGycm TECHNIQUE: CT angiography was performed with a multi-detector CT scanner. Data acquisition was obtained from the skull base through the vertex following intravenous administration of IV 100mL [id number]-[id number]. MIP images were reconstructed from the axial data set. Post-processing of the angiographic images was performed, with multiplanar reformation and 3D reconstruction. Individualized dose optimization techniques were used for this CT. COMPARISON: Noncontrast head CT dated January 27, 2022 FINDINGS: Normal bilateral [place] carotid arteries. Normal right cavernous carotid artery with a normal supraclinoid bifurcation. Normal left cavernous carotid artery with a normal supraclinoid bifurcation. Normal right A1 segments of the anterior cerebral artery. Normal left A1 segments of the anterior cerebral artery. Normal intact anterior communicating artery (ACOM). Normal bilateral A2 segments of the anterior cerebral arteries. Normal right M1 and M2 segments of the middle cerebral arteries, with a normal M1 bifurcation. Normal left M1 and M2 segments of the middle cerebral arteries, with a normal M1 bifurcation. Normal right posterior communicating artery (PCOM). Normal left posterior communicating artery (PCOM). Normal bilateral vertebral arteries. Normal basilar artery with a normal basilar bifurcation. The visualized bilateral superior cerebellar (SCA) arteries are normal. Normal bilateral P1, P2 and visualized P3 segments of the posterior cerebral arteries. There is no demonstrated aneurysm of the [place]. There is no demonstrated abnormality of the visualized brain. AORTIC ARCH: There is atherosclerotic calcific plaque formation of the aortic arch and great vessels arising from the aortic arch, without a hemodynamically significant stenosis. There is a normal origin of the brachiocephalic, left common carotid, and left subclavian arteries. Normal origins of the brachiocephalic, left common carotid, and left subclavian arteries. RIGHT CAROTID ARTERIES: Normal right common carotid artery (CCA). Normal right common carotid bulb. There is mild atherosclerotic plaque formation of the origin of the right internal carotid artery with less than 50% cross sectional diameter stenosis. Normal visualized cervical portion of the right internal carotid artery. Normal origin of the right external carotid artery (ECA). LEFT CAROTID ARTERIES: Normal left common carotid artery (CCA). There is mild atherosclerotic plaque formation with minimal narrowing of the left carotid bulb. There is mild atherosclerotic plaque formation of the origin of the left internal carotid artery with less than 50% cross sectional diameter stenosis. Normal visualized cervical portion of the left internal carotid artery. Normal origin of the left external carotid artery (ECA). VERTEBRAL ARTERIES: Normal bilateral vertebral arteries. CT/STROKE CTA Head AND Neck W/Con IMPRESSION: 1. Normal [place] without a demonstrated aneurysm or hemodynamically significant stenosis. 2. Mild atherosclerotic stenosis of the bilateral origins of the internal carotid arteries.. N.B. : The above Results were Read Back by Shelton Burgos MD to Jez Coleman DO, DO, and understanding confirmed on 01/27/2022 10:23:28 (ET). Electronically Signed: Shelton Burgos MD at 10:24 EDT ,
--- NOTE | 2022-01-27 10:00 | RAD_ITS ---
STUDY: X-RAY CHEST REASON FOR EXAM: Male, 71 years old. Neuro deficit, acute, stroke suspected TECHNIQUE: Single AP portable view of the chest. COMPARISON: Chest x-ray dated July 09, 2018 FINDINGS: No visualized consolidation or infiltrates. Stable cortical plate-screw construct of the left clavicle. The lungs are clear and expanded. There is no demonstrated pleural abnormality. Normal size heart. Normal mediastinum and earl. Normal visualized pulmonary arteries. There is atherosclerotic calcification of the aortic arch with tortuosity. There are diffuse degenerative changes of the visualized thoracic spine. Normal visualized ribs, clavicles, and shoulders. There is no demonstrated abnormality of the visualized soft tissue structures of the upper abdomen. RAD/Chest 1 View IMPRESSION: No acute process Electronically Signed: Shelton Burgos MD at 10:39 EDT ,
[2022-01-27 10:06] LABS: Bedside Glucose 90 mg/dL (74-106)
[2022-01-27 10:09] LABS: Absolute Lymphocyte Count 1.98 X10^3/uL (0.83-4.51); Absolute Neutrophil Count 4.1 X10^3/uL (2.0-7.7); Basophil# 0.05 X10^3/uL; Basophil% 0.7 % (0-1); Eosinophil# 0.12 X10^3/uL; Eosinophils% 1.7 % (0-5); Hematocrit 41.1 % (40-54); Hemoglobin 13.6 g/dL (13.0-16.5); Lymphocyte # 1.98 X10^3/ul (0.83-4.51); Lymphocyte % 28.8 % (19-41); Mean Corp Hgb Conc 33.1 g/dL (32-36); Mean Corpuscular Hgb 31.2 pg (27.0-32.0); Mean Corpuscular Volume 94.3 fL (80-94); Mean Platelet Vol. 10.7 fl (6.2-12.0); Monocyte# 0.58 X10^3/uL; Monocyte% 8.4 % (0-10); NRBC Flagged by Analyzer 0 % (0-5); Neutrophil # 4.12 X10^3/uL (2.7-7.7); Neutrophil % 60.1 % (47-70); Platelet Count 145 K/mm3 (150-450); RBC Distribution Width CV 14.2 % (11.6-14.6); Red Blood Count 4.36 M/mm3 (4.6-6.2); White Blood Count 6.9 K/mm3 (4.4-11.0)
[2022-01-27 10:14] VITALS: BMI 24.7
[2022-01-27 10:16] VITALS: BP 164/93; PULSE 74; RESP 24; O2SAT 96
[2022-01-27 10:19] LABS: International Normalized Ratio 1.1; Prothrombin Time (Protime)PT. 13.8 SECONDS (11.7-14.9)
[2022-01-27 10:20] LABS: Partial Thromboplast Time 36.8 Seconds (24.1-36.2)
[2022-01-27 10:29] LABS: Anion Gap 8 (5-15); BUN 12 mg/dL (7-18); BUN/Creat Ratio 11.8 RATIO (10-20); Calcium,Total 8.3 mg/dL (8.5-10.1); Chloride 108 mmol/L (98-107); Creatinine, Serum 1.02 mg/dL (0.70-1.30); EST Glomerular Filtration Rate 76 mL/min (>60); Est Glom Filt Rate - Afr Amer 92 mL/min (>60); Estimated Creatinine Clearance 68.59 ml/min; Glucose 83 mg/dL (74-106); Potassium 3.5 mmol/L (3.5-5.1); Sodium Level 142 mmol/L (136-145); Troponin-I HS 16 pg/mL (3.0-78.0)
[2022-01-27 10:30] VITALS: BP 144/91; PULSE 71; RESP 14; O2SAT 97
--- NOTE | 2022-01-27 10:55 | ED.RN ---
PT OUT OF DEPT FOR MRI
--- NOTE | 2022-01-27 11:00 | MRI_ITS ---
STUDY: MRI BRAIN WITHOUT CONTRAST REASON FOR EXAM: Male, 71 years old. facial droop -- patient has a plate and screws in left clavicle placed 09/02/2017 TECHNIQUE: Standardized multiplanar fat and water weighted pulse sequences were obtained. COMPARISON: Noncontrast head CT dated January 27, 2022 FINDINGS: There is mild cerebral atrophy with widening of the extra-axial spaces and ventricular dilatation. There are a limited number of small white matter hyperintensities, distributed throughout the deep white matter tracts of the cerebral hemispheres, consistent with mild chronic white matter ischemic changes. There is no evidence for recent intracranial ischemia or other cause of cytotoxic edema on diffusion weighted imaging (DWI). Normal T2* images of the brain without demonstrated susceptibility artifact. There is no demonstrated hemosiderin stain. Normal bilateral basal ganglia. Normal thalami. There is no extra-axial fluid accumulation. Normal flow voids within the major intracranial circulation suggesting patency by spin echo criteria. Normal sella [place], pituitary gland, infundibular stalk, optic chiasm and hypothalamus. Normal tectal plate and pineal gland. Normal midbrain, dipika and medulla. Normal cerebellum. Normal basal cisterns. Normal bilateral temporal bones. Normal bilateral internal auditory canals. No demonstrated orbital abnormality, within the constraints of a routine brain study. Normal visualized paranasal sinuses. Normal calvarium and skull base. Normal visualized soft tissue structures. Normal visualized upper cervical spine. MRI/Brain without Contrast IMPRESSION: 1. Involutional changes of the brain, as described above. 2. No acute infarct or intracranial hemorrhage. Electronically Signed: Shelton Burgos MD at 12:11 EDT ,
[2022-01-27 12:00] VITALS: BP 179/90; PULSE 74; RESP 18; O2SAT 95
[2022-01-27] MEDS: predniSONE 20 MG Tablet 60 MG PO (12:29)
[2022-01-27 12:32] VITALS: BP 179/99; PULSE 71; RESP 16; O2SAT 94
== END 2022-01-27 12:35 | disposition home or self-care (01) ==
PROVIDERS: Emergency Provider Student in an Organized Health Care Education/Training Program; PCP Physician Assistant; Visit Provider Student in an Organized Health Care Education/Training Program
DX: G51.0 Bell's palsy (principal); J44.9 Chronic obstructive pulmonary disease, unspecified; I25.10 Atherosclerotic heart disease of native coronary artery without angina pectoris; I10 Essential (primary) hypertension; Z77.22 Contact with and (suspected) exposure to environmental tobacco smoke (acute) (chronic); E78.5 Hyperlipidemia, unspecified; Z95.5 Presence of coronary angioplasty implant and graft; R94.31 Abnormal electrocardiogram [ECG] [EKG]
CPT/HCPCS: 70450; 70496; 70498; 70551; 71045; 80048; 82962; 84484; 85025; 85610; 85730; 93005; 99285; Q9967; A4216

== ENCOUNTER 2022-02-11 14:44 | Inpatient (IN) | payer MEDICARE, SELFPAY ==
[2018-07-10 14:12] VITALS: BMI 24.7
[2022-02-11] VITALS (7 sets, daily range): BP systolic 82–133; BP diastolic 61–74; PULSE 74–97; RESP 16–20; TEMP 36.2–36.7; O2SAT 96–100; BMI 24.7; BMI 23.1
--- NOTE | 2022-02-11 15:18 | EDS_ITS ---
HPI HPI - GI History of Present Illness Chief Complaint: GI Bleed Narrative Narrative: 71-year-old male presenting with concern for GI bleed. 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 x7 days. He stopped this on Friday. Patient states that he went to [employer] and had a cheeseburger and about 20 minutes later vomited. He noted that there was some dark blood in his emesis. He did have a couple episodes of this. Patient also admits to having some diarrhea later. He had some dark maroon stools. On Friday. Patient has been well since then. He has no nausea, vomiting, diarrhea. He denies any abdominal pain. He states he is the only person in his family that ate [employer]. Nobody else is ill. Patient states he is on aspirin for history of CAD but is not on any other anticoagulation. Patient does report that and from time to time he is lightheaded when he stands, but after he Is bearing he is able to walk and ambulate around without any difficulty. Patient states that over Friday night and Friday he did have some sweats but denies fever. He has not had body to chills. Patient called his PCP today who sent him to the ER for internal bleeding. [facility] Medical History Atherosclerotic heart disease of [place] coronary artery without angina pectoris CAP (community acquired pneumonia) COPD (chronic obstructive pulmonary disease) Essential (primary) hypertension Hyperlipidemia Nicotine dependence Tobacco abuse Tobacco dependence in remission Home Medications aspirin 81 mg tablet,delayed release 81 mg PO DAILY@0800 #30 tabs 07/11/18 [Rx Last Taken 02/10/22] nitroglycerin 0.4 mg sublingual tablet 0.4 mg sublingual Q5M PRN Angina pain #25 tabs 09/01/18 [Rx Last Taken Unknown] atorvastatin 40 mg tablet 40 mg PO DAILY #90 tabs 08/27/21 [Rx Last Taken 02/11/22] isosorbide mononitrate 30 mg tablet,extended release 24 hr 30 mg PO DAILY #90 tabs 10/26/21 [Rx Last Taken 02/11/22] carvedilol 6.25 mg tablet 6.25 mg PO BID #180 tabs 11/28/21 [Rx Last Taken 02/11/22] losartan 100 mg tablet 100 mg PO DAILY #90 tabs 12/13/21 [Rx Last Taken 02/11/22] albuterol sulfate 90 mcg/actuation aerosol inhaler (Ventolin HFA) 2 puff inhalation Q4H #8.5 grams 01/02/22 [Rx Last Taken 02/10/22] fluticasone fur. 100 mcg-umeclid 62.5 mcg-vilant 25 mcg inhalat.powder (Trelegy Ellipta) 1 inh inhalation DAILY SOB 01/27/22 [History Last Taken 02/10/22] gabapentin 100 mg capsule 100 mg PO TID NERVE PAIN 02/11/22 [History Last Taken 02/11/22] meloxicam 15 mg tablet 15 mg PO DAILY PRN PRN Pain 02/11/22 [History Last Taken 3 Days Ago ~02/08/22] sussartr-zce-dodxc acid 0.4 mg-lycopene 300 mcg-lutein 250 mcg tablet (Centrum Silver) 1 tab PO DAILY 02/11/22 [History Last Taken 3 Days Ago ~02/08/22] triamcinolone acetonide 0.1 % topical cream 0.1 applic topical BID 02/11/22 [History Last Taken Unknown] Allergy/AdvReac Type Severity Reaction Status Date / Time bee venom protein (honey bee) Allergy Anaphylaxis Verified 02/11/22 14:48 clopidogrel [From Plavix] Allergy rash Verified 02/11/22 14:48 lactose AdvReac Other Verified 02/11/22 14:48 lisinopril AdvReac cough Verified 02/11/22 14:48 Family History Mother CVA (cerebral vascular accident) Father Heart disease Surgical History History of coronary artery stent placement (07/10/18) History of shoulder surgery Social History Smoking Status: Current every day smoker tobacco type: cigarettes second hand exposure: Yes alcohol intake: never substance use type: does not use caffeine: No what type of physical activity do you participate in: running and weight training ROS ROS ED Constitutional Constitutional ED: Reports sweats; Denies chills or fever(s) ENT ENT ED: Denies rhinorrhea or sore throat Cardiovascular Cardiovascular: Denies chest pain or palpitations Respiratory/Chest Respiratory/Chest: Denies cough or dyspnea Gastrointestinal Gastrointestinal: Reports nausea, vomiting and other Details: Maroon emesis and maroon diarrhea Genitourinary Genitourinary ED: Denies dysuria or hematuria Musculoskeletal Musculoskeletal: Denies arthralgias Integumentary Denies abscess or Abrasions Neurologic Neurologic: Denies headache(s) or paresthesias Psychiatric Psychiatric: Denies anxiety or depression EXAM Physical Exam Const Vital Signs: 02/11/22 14:46 02/11/22 15:38 Temperature 97.3 F L Temperature Source Temporal Pulse Rate 97 Pulse Rate [Lying] 78 Pulse Rate [Sitting (for 1 minute prior to obtaining)] 85 Pulse Rate [Standing (for 1 minute prior to obtaining)] 89 Respiratory Rate 16 Blood Pressure 126/74 H Blood Pressure [Lying] 109/61 Blood Pressure [Sitting (for 1 minute prior to obtaining)] 105/66 Blood Pressure [Standing (for 1 minute prior to obtaining)] 82/61 L Blood Pressure Mean 91 Blood Pressure Mean [Lying] 77 Blood Pressure Mean [Sitting (for 1 minute prior to obtaining)] 79 Blood Pressure Mean [Standing (for 1 minute prior to obtaining)] 68 Pulse Ox 100 Oxygen Delivery Method Room Air Positive well nourished General Appearance ED: NAD; Negative for pallor HEENT Reports moist mucous membranes normocephalic and atraumatic Eyes PERRL and EOMs intact bilaterally Neck no lymphadenopathy Resp normal respiratory effort and clear to auscultation bilaterally Cardio regular rate and regular rhythm GI non-tender and non-distended Auscultation: normoactive bowel sounds Palpation: soft Neuro CN's II-XII intact bilaterally and moves all extremities Sensorium / Orientation: alert, oriented to person, oriented to place and oriented to time Motor Exam: strength 5/5 throughout Psych mental status grossly normal and thought process normal Skin General Skin Exam: Negative for jaundice or pallor MDM MDM MDM Narrative Medical decision making narrative: Patient presenting with history of vomiting blood as well as blood in stool. He states this is all resolved. He is not any pain on exam. His initial vital signs are normal however he is orthostatic positive. He is not pale and his conjunctiva are still pink. He states he feels otherwise well. He is on aspirin for history of CAD but no other blood thinners. I did obtain blood work and his CBC shows his hemoglobin is down to 8.8. On 01/27/2022 his hemoglobin was 13.6. Platelets are 161. Renal function and electrolytes are normal. BUN slightly elevated at 19. Magnesium level normal. Given the orthostatic hypotension and acute GI bleed I spoke with Dr. Moralez who recommended admission for endoscopy. Patient given Protonix in the ER. Patient's janis with the hospitalist for admission. Patient transported in stable condition. Impression: 1. Acute blood loss anemia 2. Orthostatic hypotension 3. GI bleed Lab Data Attestation: I reviewed the patient's lab results. Labs: Laboratory Results - last 24 hr 02/11/22 02/11/22 02/11/22 15:35 15:35 15:35 WBC 9.1 RBC 2.76 L Hgb 8.8 L Hct 26.9 L MCV 97.5 H MCH 31.9 MCHC 32.7 RDW Std Deviation 51.6 H RDW Coeff of Itz 14.6 Plt Count 161 MPV 10.9 Immature Gran % (Auto) 0.400 Neut % (Auto) 66.4 Lymph % (Auto) 23.7 [place] % (Auto) 7.5 Eos % (Auto) 1.4 Baso % (Auto) 0.6 Absolute Neuts (auto) 6.0 Absolute Lymphs (auto) 2.15 Nucleated RBC % 0 Sodium 146 H Potassium 3.8 Chloride 112 H Carbon Dioxide 30.0 Anion Gap 4 L BUN 19 H Creatinine 0.92 Estim Creat Clear Calc 76.04 Est GFR (MDRD) Af Amer 104 Est GFR (MDRD) Non-Af 86 BUN/Creatinine Ratio 20.6 H Glucose 111 H Calcium 8.7 Magnesium 2.5 Total Bilirubin 0.40 AST 9 L ALT 18 Alkaline Phosphatase 54 Total Protein 5.6 L Albumin 2.7 L Globulin 2.9 Albumin/Globulin Ratio 0.9 Lipase 128 Blood Type Antibody Screen 02/11/22 16:12 WBC RBC Hgb Hct MCV MCH MCHC RDW Std Deviation RDW Coeff of Itz Plt Count MPV Immature Gran % (Auto) Neut % (Auto) Lymph % (Auto) [place] % (Auto) Eos % (Auto) Baso % (Auto) Absolute Neuts (auto) Absolute Lymphs (auto) Nucleated RBC % Sodium Potassium Chloride Carbon Dioxide Anion Gap BUN Creatinine Estim Creat Clear Calc Est GFR (MDRD) Af Amer Est GFR (MDRD) Non-Af BUN/Creatinine Ratio Glucose Calcium Magnesium Total Bilirubin AST ALT Alkaline Phosphatase Total Protein Albumin Globulin Albumin/Globulin Ratio Lipase Blood Type A POSITIVE Antibody Screen NEGATIVE Discharge Plan Triage Chief Complaint: GI Bleed ED Provider: Jez Coleman Dx/Rx/DC Orders Primary Care Provider: Silverio Ponce
[2022-02-11 15:56] LABS: Absolute Lymphocyte Count 2.15 X10^3/uL (0.83-4.51); Basophil# 0.05 X10^3/uL; Basophil% 0.6 % (0-1); Eosinophil# 0.13 X10^3/uL; Eosinophils% 1.4 % (0-5); Hematocrit 26.9 % (40-54); Hemoglobin 8.8 g/dL (13.0-16.5); Lymphocyte # 2.15 X10^3/ul (0.83-4.51); Lymphocyte % 23.7 % (19-41); Mean Corp Hgb Conc 32.7 g/dL (32-36); Mean Corpuscular Hgb 31.9 pg (27.0-32.0); Mean Corpuscular Volume 97.5 fL (80-94); Mean Platelet Vol. 10.9 fl (6.2-12.0); Monocyte# 0.68 X10^3/uL; Monocyte% 7.5 % (0-10); NRBC Flagged by Analyzer 0 % (0-5); Neutrophil # 6.02 X10^3/uL (2.7-7.7); Neutrophil % 66.4 % (47-70); Platelet Count 161 K/mm3 (150-450); RBC Distribution Width CV 14.6 % (11.6-14.6); RBC Distribution Width SD 51.6 fl (35.1-43.9); Red Blood Count 2.76 M/mm3 (4.6-6.2); White Blood Count 9.1 K/mm3 (4.4-11.0)
[2022-02-11 16:05] LABS: ALB/GLOB Ratio 0.9 RATIO (0.9-2.4); AST(SGOT) 9 U/L (15-37); Alanine Aminotransfer ALT/SGPT 18 U/L (16-61); Albumin, Serum 2.7 g/dL (3.2-5.0); Alkaline Phosphatase 54 U/L (45-117); Anion Gap 4 (5-15); BUN 19 mg/dL (7-18); BUN/Creat Ratio 20.6 RATIO (10-20); Calcium,Total 8.7 mg/dL (8.5-10.1); Chloride 112 mmol/L (98-107); Creatinine, Serum 0.92 mg/dL (0.70-1.30); EST Glomerular Filtration Rate 86 mL/min (>60); Est Glom Filt Rate - Afr Amer 104 mL/min (>60); Estimated Creatinine Clearance 76.04 ml/min; Globulin 2.9 g/dL (2.2-4.2); Glucose 111 mg/dL (74-106); Lipase 128 U/L (73-393); Potassium 3.8 mmol/L (3.5-5.1); Protein, Total 5.6 g/dL (6.4-8.2); Sodium Level 146 mmol/L (136-145)
--- NOTE | 2022-02-11 16:55 | PCM.HP.STD ---
HPI - General General Date of Admission: 02/11/22 Date of Service: 02/11/22 Chief Complaint: Lightheadedness, dark maroon stools, hematemesis. HPI Narrative The patient is a 71 y/o M w/ PMHx: CAD s/p PCI, COPD, Tobacco use, HTN, HLD who presents to the [facility] ED on 02/11/22 with history of recent diagnosis of Decker's palsy with treatment with a course of prednisone 60 mg x 7 days in addition to acyclovir which she is completed as well as chronic usage intermittently of Mobic which he admits he had taken over the last week but not for the last couple days with onset on Friday prior to presentation onset episodes of emesis following intake of a [employer]'s meal with noted dark blood mixed with food contents reoccurring at least couple times with then onset of loose stools noted to be dark and maroon in appearance with no recurrence but since then significant positional lightheadedness especially from sitting to standing but notes that it is better if he rests prior to doing so with referral to the ED for evaluation per his PCP once he discussed recent events Work-up in the ED included T97.3, heart rate 97, BP 126/74, respiratory rate 16, on her percent room air, + orthostatic VS significantly positive, CBC with WC 9.1, hemoglobin 8.8 with last noted 01/27/2022 hemoglobin 13.6 and prior to this 07/11/2018 13.7, platelets 161 without marked shift, CMP with sodium 146, chloride 112, BUN/creat 19/0.92, glucose 111, unremarkable hepatic profile, lipase 128, type and screen pending per ED upon requested evaluation. In the ED patient administered protonix 40 mg IV x 1. ED did discuss case with Dr. Moralez who was consulted and noted intention for endoscopy in AM. [facility] Medical History Atherosclerotic heart disease of [place] coronary artery without angina pectoris CAP (community acquired pneumonia) COPD (chronic obstructive pulmonary disease) Essential (primary) hypertension Hyperlipidemia Nicotine dependence Tobacco abuse Tobacco dependence in remission Home Medications aspirin 81 mg tablet,delayed release 81 mg PO DAILY@0800 #30 tabs 07/11/18 [Rx Last Taken 02/10/22] nitroglycerin 0.4 mg sublingual tablet 0.4 mg sublingual Q5M PRN Angina pain #25 tabs 09/01/18 [Rx Last Taken Unknown] atorvastatin 40 mg tablet 40 mg PO DAILY #90 tabs 08/27/21 [Rx Last Taken 02/11/22] isosorbide mononitrate 30 mg tablet,extended release 24 hr 30 mg PO DAILY #90 tabs 10/26/21 [Rx Last Taken 02/11/22] carvedilol 6.25 mg tablet 6.25 mg PO BID #180 tabs 11/28/21 [Rx Last Taken 02/11/22] losartan 100 mg tablet 100 mg PO DAILY #90 tabs 12/13/21 [Rx Last Taken 02/11/22] albuterol sulfate 90 mcg/actuation aerosol inhaler (Ventolin HFA) 2 puff inhalation Q4H #8.5 grams 01/02/22 [Rx Last Taken 02/10/22] fluticasone fur. 100 mcg-umeclid 62.5 mcg-vilant 25 mcg inhalat.powder (Trelegy Ellipta) 1 inh inhalation DAILY SOB 01/27/22 [History Last Taken 02/10/22] gabapentin 100 mg capsule 100 mg PO TID NERVE PAIN 02/11/22 [History Last Taken 02/11/22] meloxicam 15 mg tablet 15 mg PO DAILY PRN PRN Pain 02/11/22 [History Last Taken 3 Days Ago ~02/08/22] ofgnguvt-zqg-eaqxo acid 0.4 mg-lycopene 300 mcg-lutein 250 mcg tablet (Centrum Silver) 1 tab PO DAILY 02/11/22 [History Last Taken 3 Days Ago ~02/08/22] triamcinolone acetonide 0.1 % topical cream 0.1 applic topical BID 02/11/22 [History Last Taken Unknown] Allergy/AdvReac Type Severity Reaction Status Date / Time bee venom protein (honey bee) Allergy Anaphylaxis Verified 02/11/22 14:48 clopidogrel [From Plavix] Allergy rash Verified 02/11/22 14:48 lactose AdvReac Other Verified 02/11/22 14:48 lisinopril AdvReac cough Verified 02/11/22 14:48 Family History Mother CVA (cerebral vascular accident) Father Heart disease Surgical History History of coronary artery stent placement (07/10/18) History of shoulder surgery Social History Smoking Status: Current every day smoker tobacco type: cigarettes second hand exposure: Yes alcohol intake: never substance use type: does not use caffeine: No what type of physical activity do you participate in: running and weight training ROS ROS Narrative Admission Review of Systems: CONSTITUTIONAL: No weight loss, fever, chills, + weakness or fatigue. HEENT: + Lightheadedness/dizziness with position changes. Eyes: No visual loss, blurred vision, double vision or yellow sclerae. Ears, Nose, Throat: No hearing loss, sneezing, congestion, runny nose or sore throat. SKIN: No rash or itching, lesions, wounds. CARDIOVASCULAR: + LH/Dizziness. No chest pain, chest pressure or chest discomfort, palpitations, edema, orthopnea, syncopal events. RESPIRATORY: No shortness of breath, cough or sputum, wheezing, hemoptysis. GASTROINTESTINAL: + Hematemesis, dark maroon stools, No anorexia, abdominal pain. GENITOURINARY: No dysuria, frequency, urgency or retention. NEUROLOGICAL: No headache, dizziness, syncope, paralysis, ataxia, numbness or tingling in the extremities, focal weakness, change in bowel or bladder control, seizure. MUSCULOSKELETAL: + muscle, back pain, joint pain or stiffness. HEMATOLOGIC: + anemia, bleeding or bruising. LYMPHATICS: No enlarged nodes. No history of splenectomy. PSYCHIATRIC: No history of depression or anxiety. ENDOCRINOLOGIC: No reports of sweating, cold or heat intolerance. No polyuria or polydipsia. ALLERGIES: + history of anaphylaxis with bee venom. Vital Signs Vital Signs Vital Signs: 02/11/22 14:46 02/11/22 15:38 Temperature 97.3 F L Temperature Source Temporal Pulse Rate 97 Pulse Rate [Lying] 78 Pulse Rate [Sitting (for 1 minute prior to obtaining)] 85 Pulse Rate [Standing (for 1 minute prior to obtaining)] 89 Respiratory Rate 16 Blood Pressure 126/74 H Blood Pressure [Lying] 109/61 Blood Pressure [Sitting (for 1 minute prior to obtaining)] 105/66 Blood Pressure [Standing (for 1 minute prior to obtaining)] 82/61 L Blood Pressure Mean 91 Blood Pressure Mean [Lying] 77 Blood Pressure Mean [Sitting (for 1 minute prior to obtaining)] 79 Blood Pressure Mean [Standing (for 1 minute prior to obtaining)] 68 Pulse Ox 100 Oxygen Delivery Method Room Air Weight Weight: 172 lb Body Mass Index (BMI) 24.7 Physical Exam Narrative Physical Examination: General: Awake, alert, oriented x 3 and cooperative, seated upright in the ED bed, fatigued appearing, mildly pale pallor, mildly irritable. Skin: Mildly pale color, normal turgor, no icterus, no cyanosis. HEENT: AT/NC, EOMI, PERRLA, mildly dry MM, no carotid bruits or JVD noted. Lungs: Mildly diminished, greater bases, occasional very soft end expiratory wheeze, no rhonchi or rales. Heart: Currently regular rate and rhythm; no gallop, rub audible. Abdomen: Soft, NTTP, ND, mildly hyperactive BS, no HSM. Extremities: No cyanosis, clubbing, or edema. Neurological: Patient awake, alert, oriented as noted, cognitive function intact; pupils equally reactive to light and accommodation, cranial nerves II-XII grossly normal, moving all 4 extremities, no focal deficits, strength mildly to moderately global decrease secondary to acute presentation, does admit to lightheadedness/dizziness with positional changes. Psychiatric: Affect appears fatigued, mildly irritable otherwise normal, no acute evidence of depressive or anxiety feelings. Results Lab / Micro Data Result Diagrams: 02/11/22 15:35 02/11/22 15:35 Labs: Laboratory Results - last 24 hr 02/11/22 15:35: WBC 9.1, RBC 2.76 L, Hgb 8.8 L, Hct 26.9 L, MCV 97.5 H, MCH 31.9, MCHC 32.7, RDW Std Deviation 51.6 H, RDW Coeff of Itz 14.6, Plt Count 161, MPV 10.9, Immature Gran % (Auto) 0.400, Neut % (Auto) 66.4, Lymph % (Auto) 23.7, [place] % (Auto) 7.5, Eos % (Auto) 1.4, Baso % (Auto) 0.6, Absolute Neuts (auto) 6.0, Absolute Lymphs (auto) 2.15, Nucleated RBC % 0 10/03/22 15:35: Sodium 146 H, Potassium 3.8, Chloride 112 H, Carbon Dioxide 30.0, Anion Gap 4 L, BUN 19 H, Creatinine 0.92, Estim Creat Clear Calc 76.04, Est GFR (MDRD) Af Amer 104, Est GFR (MDRD) Non-Af 86, BUN/Creatinine Ratio 20.6 H, Glucose 111 H, Calcium 8.7, Total Bilirubin 0.40, AST 9 L, ALT 18, Alkaline Phosphatase 54, Total Protein 5.6 L, Albumin 2.7 L, Globulin 2.9, Albumin/Globulin Ratio 0.9, Lipase 128 Assessment & Plan Assessment/Plan (1) GI bleed: PLAN: Plan The patient is a 71 y/o M w/ PMHx: CAD s/p PCI, COPD, Tobacco use, HTN, HLD who presents to the [facility] ED on 02/11/22 with history of recent diagnosis of Decker's palsy with treatment with a course of prednisone 60 mg x 7 days in addition to acyclovir which she is completed as well as chronic usage intermittently of Mobic which he admits he had taken over the last week but not for the last couple days with onset on Friday prior to presentation onset episodes of emesis following intake of a Maribell's meal with noted dark blood mixed with food contents reoccurring at least couple times with then onset of loose stools noted to be dark and maroon in appearance with no recurrence but since then significant positional lightheadedness especially from sitting to standing. #1. Acute GI Bleed w/ resultant Acute Blood Loss Anemia: Admission Hgb 8.8, will admit to MS telemetry to be cautious given severe orthostasis and marked drop in Hgb, maintain on IVFs, obtain serial H+H, maintain on IV PPI, NPO status, continue consultation with Dr. Moralez who is aware of consultation and notified by ED staff. Discussed patient recent setting with steroids coupled with usage of Mobic as likely etiology for acute GI bleed. #2. CAD: Status post prior PCI 2018, we will temporarily hold aspirin given acute presentation with significant orthostasis with GI bleed, continue statin, temporarily holding hypertensive regimen given significant orthostasis, add back once improved with as needed agents short acting in the interim. #3. Chronic COPD: We will temporarily hold home chronic inhaler and in the interim transition to ATC duonebs, PRN albuterol, HOB, IS parameters. #4. Hypertension: We will temporarily hold patient home regimen with as needed IV hydralazine given significant orthostatic hypotension, add back regimen once improving. #5. Hyperlipidemia: We will continue patient on statin therapy. #6. Tobacco Abuse: Encouraged cessation, inpatient consultation per RT, NR if desired. #7. DVT prophylaxis: SCDs, holding chemoprophylaxis given acute presentation. #8. CODE status: Patient does not have healthcare power of patent attorney or living will in place. He did delineate that his next of kin his would be his contact. Discussed CODE status at length including difference between FULL code, DNR-CCA and DNR-CC status. Following discussions about the differences in these status, requested Full Code status. Advanced Care Planning Face to Face Time: 16 minutes. Charges/Coding Visit Charges Inpatient E&M: 30721 Init Hosp L3 Procedures Hospitalists Procedures: 43972 Advncd Care Plan 30 Min
[2022-02-11 17:25] LABS: Magnesium 2.5 mg/dL (1.6-2.6)
[2022-02-11] MEDS: Ipratropium/Albuterol Sulfate 3 ML AMPUL.NEB INHALATION (19:29)
[2022-02-11] MEDS: Gabapentin 100 MG Capsule PO (21:41)
[2022-02-11] MEDS: 0.9% Normal Saline 1,000 ML 100 ML IV (21:41)
[2022-02-11] MEDS: Atorvastatin Calcium 40 MG Tablet PO (21:41)
[2022-02-11 22:43] LABS: Hematocrit 25.1 % (40-54); Hemoglobin 8.2 g/dL (13.0-16.5)
--- NOTE | 2022-02-11 23:00 | PCM.CONS.GEN ---
Assessment & Plan Assessment/Plan (1) GI bleed: PLAN: He will undergo an upper endoscopy to evaluate his upper GI tract for a possible GI bleed. Different diagnosis does include peptic ulcer disease, neoplasia, angiodysplasia, gastritis, esophagitis. He was explained alternatives, risk, benefits include not withstanding bleeding, infection, sepsis, perforation, need for emergent . He will have an ASA of 3. HPI Consult Data Date of Consult: 02/11/22 HPI Narrative Reason for Consultation: GI bleed HPI Narrative: YARIEL REICH, is a 71 M who presents with concern for GI bleed.? 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 x7 days.? He stopped this on Friday.? Patient states that he went to [employer] and had a cheeseburger and about 20 minutes later vomited.? He noted that there was some dark blood in his emesis.? He did have a couple episodes of this.? Patient also admits to having some diarrhea later.? He had some dark maroon stools On Friday.? Patient has been well since then.? He has no nausea, vomiting, diarrhea.? He denies any abdominal pain.? He states he is the only person in his family that ate [employer]? Nobody else is ill.? Patient states he is on aspirin for history of CAD but is not on any other anticoagulation.? Patient does report that and from time to time he is lightheaded when he stands, but after he Is bearing he is able to walk and ambulate around without any difficulty.? Patient states that over Friday night and Friday he did have some sweats but denies fever.? He has not had body to chills.? Patient called his PCP today who sent him to the ER for internal bleeding. All other 16 review of systems are negative except as per body mentioned HPI. [facility] Medical History (Updated 02/11/22 @ 20:12 by Rosales Caldwell) Anemia Atherosclerotic heart disease of [place] coronary artery without angina pectoris CAP (community acquired pneumonia) COPD (chronic obstructive pulmonary disease) Essential (primary) hypertension Heart attack Hiatal hernia History of steroid therapy History of stress test HTN (hypertension) Hyperlipidemia Nicotine dependence Tobacco abuse Tobacco dependence in remission Home Medications aspirin 81 mg tablet,delayed release 81 mg PO DAILY@0800 #30 tabs 07/11/18 [Rx Last Taken 02/10/22] nitroglycerin 0.4 mg sublingual tablet 0.4 mg sublingual Q5M PRN Angina pain #25 tabs 09/01/18 [Rx Last Taken Unknown] atorvastatin 40 mg tablet 40 mg PO DAILY #90 tabs 08/27/21 [Rx Last Taken 02/11/22] isosorbide mononitrate 30 mg tablet,extended release 24 hr 30 mg PO DAILY #90 tabs 10/26/21 [Rx Last Taken 02/11/22] carvedilol 6.25 mg tablet 6.25 mg PO BID #180 tabs 11/28/21 [Rx Last Taken 02/11/22] losartan 100 mg tablet 100 mg PO DAILY #90 tabs 12/13/21 [Rx Last Taken 02/11/22] albuterol sulfate 90 mcg/actuation aerosol inhaler (Ventolin HFA) 2 puff inhalation Q4H #8.5 grams 01/02/22 [Rx Last Taken 02/10/22] fluticasone fur. 100 mcg-umeclid 62.5 mcg-vilant 25 mcg inhalat.powder (Trelegy Ellipta) 1 inh inhalation DAILY SOB 01/27/22 [History Last Taken 02/10/22] gabapentin 100 mg capsule 100 mg PO TID NERVE PAIN 02/11/22 [History Last Taken 02/11/22] meloxicam 15 mg tablet 15 mg PO DAILY PRN PRN Pain 02/11/22 [History Last Taken 3 Days Ago ~02/08/22] eifokmxx-bxu-lutvp acid 0.4 mg-lycopene 300 mcg-lutein 250 mcg tablet (Centrum Silver) 1 tab PO DAILY 02/11/22 [History Last Taken 3 Days Ago ~02/08/22] triamcinolone acetonide 0.1 % topical cream 0.1 applic topical BID 02/11/22 [History Last Taken Unknown] Allergy/AdvReac Type Severity Reaction Status Date / Time bee venom protein (honey bee) Allergy Anaphylaxis Verified 02/11/22 14:48 clopidogrel [From Plavix] Allergy rash Verified 02/11/22 14:48 lactose AdvReac Other Verified 02/11/22 14:48 lisinopril AdvReac cough Verified 02/11/22 14:48 Family History Mother CVA (cerebral vascular accident) Father Heart disease Surgical History (Updated 02/11/22 @ 20:12 by Rosales Caldwell) History of coronary artery stent placement (07/10/18) History of shoulder surgery Status post cardiac surgery Social History Smoking Status: Current every day smoker tobacco type: cigarettes second hand exposure: Yes alcohol intake: never substance use type: does not use caffeine: No what type of physical activity do you participate in: running and weight training ROS ROS Narrative Admission Review of Systems: CONSTITUTIONAL: No weight loss, fever, chills, + weakness or fatigue. HEENT: + Lightheadedness/dizziness with position changes. Eyes: No visual loss, blurred vision, double vision or yellow sclerae. Ears, Nose, Throat: No hearing loss, sneezing, congestion, runny nose or sore throat. SKIN: No rash or itching, lesions, wounds. CARDIOVASCULAR: + LH/Dizziness. No chest pain, chest pressure or chest discomfort, palpitations, edema, orthopnea, syncopal events. RESPIRATORY: No shortness of breath, cough or sputum, wheezing, hemoptysis. GASTROINTESTINAL: + Hematemesis, dark maroon stools, No anorexia, abdominal pain. GENITOURINARY: No dysuria, frequency, urgency or retention. NEUROLOGICAL: No headache, dizziness, syncope, paralysis, ataxia, numbness or tingling in the extremities, focal weakness, change in bowel or bladder control, seizure. MUSCULOSKELETAL: + muscle, back pain, joint pain or stiffness. HEMATOLOGIC: + anemia, bleeding or bruising. LYMPHATICS: No enlarged nodes. No history of splenectomy. PSYCHIATRIC: No history of depression or anxiety. ENDOCRINOLOGIC: No reports of sweating, cold or heat intolerance. No polyuria or polydipsia. ALLERGIES: + history of anaphylaxis with bee venom. Physical Exam Const alert, oriented x3 and no apparent distress HEENT head/scalp atraumatic, moist oral mucous membranes and oropharynx normal Head and Scalp: normocephalic Mouth: dry mucous membranes Eyes PERRL and EOMs intact bilaterally Neck no lymphadenopathy, supple and no JVD Resp normal respiratory effort, no retractions, no use of accessory muscles and clear to auscultation bilaterally Cardio regular rate, regular rhythm, S1 normal heart sound, S2 normal heart sound and no murmurs GI normal to inspection, nondistended, normoactive bowel sounds, soft to palpation, non-tender and non-distended Extremity normal to inspection, full ROM and no clubbing, cyanosis or edema Neuro oriented x3, CN's II-XII intact bilaterally and moves all extremities Motor Exam: strength 5/5 throughout Psych affect normal Lab / Micro Data Result Diagrams: 02/12/22 06:20 02/12/22 06:20 Labs: Laboratory Results - last 24 hr 02/11/22 15:35: Magnesium 2.5 02/11/22 16:12: Blood Type A POSITIVE, Antibody Screen NEGATIVE 02/11/22 22:25: Hgb 8.2 L, Hct 25.1 L 02/12/22 02:12: Hgb 8.2 L, Hct 25.2 L 02/12/22 06:20: WBC 9.0, RBC 2.51 L, Hgb 8.1 L, Hct 24.6 L, MCV 98.0 H, MCH 32.3 H, MCHC 32.9, RDW Std Deviation 51.0 H, RDW Coeff of Itz 14.6, Plt Count 143 L, MPV 10.2, Immature Gran % (Auto) 0.200, Neut % (Auto) 63.2, Lymph % (Auto) 25.9, [place] % (Auto) 8.9, Eos % (Auto) 1.4, Baso % (Auto) 0.4, Absolute Neuts (auto) 5.7, Absolute Lymphs (auto) 2.33, Nucleated RBC % 0 02/12/22 06:20: Sodium 144, Potassium 3.7, Chloride 113 H, Carbon Dioxide 26.0, Anion Gap 5, BUN 14, Creatinine 0.89, Estim Creat Clear Calc 81.08, Est GFR (MDRD) Af Amer 108, Est GFR (MDRD) Non-Af 89, BUN/Creatinine Ratio 15.7, Glucose 98, Calcium 8.0 L, Total Bilirubin 0.40, Direct Bilirubin 0.13, AST 12 L, ALT 17, Alkaline Phosphatase 52, Total Protein 4.9 L, Albumin 2.4 L, Globulin 2.5, Albumin/Globulin Ratio 1.0 02/12/22 06:20: PT 13.6, INR 1.1, APTT 34.4 02/12/22 06:20: Magnesium 2.1 Charges/Coding Visit Charges Inpatient E&M: 10346 Init Hosp L2
[2022-02-12] VITALS (20 sets, daily range): BP systolic 96–143; BP diastolic 55–77; PULSE 60–93; RESP 14–18; TEMP 36.3–37.1; O2SAT 94–98; BMI 23.1
--- NOTE | 2022-02-12 | EGD_PTH ---
PATIENT: YARIEL REICH LOC: MS3 U#:[id number] AGE/SX: 71/M ROOM: NE316 RE02/11/[address]: Dr. Kristina Mendez MD : 1950 BED: 1 DIS: 02/13/2022 SPEC #: [id number] RECD: 02/12/22 18:00 STATUS: ERIC LOLA #: [id number] OPLO: 02/12/22 00:[address]: Antonio Moralez DEPT: SURGICAL PATHOLOGY RECD BY: Leandro Haro ENTERED: 02/13/22 07:50 SP TYPE: EGD BIOPSY OTHR DR: MD Dr. Kristina Alston MD M Gregory Barton, [place] Tissues: A - Gastric mucous membrane B - Esophagus, NOS Procedures: Special Stain Group II Surgery Specimen Level IV Alcian Blue/PAS (control) HEADER OPERATION: EGD ([facility]) PRE-OP DIAGNOSIS: GI bleed TISSUE SUBMITTED: A ? Gastric ulcer biopsy, B ? Distal esophagus biopsy MICROSCOPIC DIAGNOSIS A. Gastric ulcer, biopsy: Moderate chronic active gastritis. See comment. B. Distal esophagus, biopsy: A fragment of gastric mucosa with moderate chronic inflammation. Intestinal metaplasia (goblet cell metaplasia) not identified. See comment. SJ:rg 02/14/2022 COMMENT A. The results of immunohistochemistry for Helicobacter pylori will be reported separately ([id number]). B. Alcian blue/PAS stain with matched control is used in the evaluation of the specimen. MICROSCOPIC DESCRIPTION Slides are reviewed. GROSS DESCRIPTION A - Received in fixative is one container labeled with the patient's name and designated gastric ulcer biopsy. The specimen consists of multiple irregular fragments of light ramirez soft tissue that in aggregate measure 0.9 x 0.3 x 0.1 cm. The specimen is totally submitted in one cassette. B - Received in fixative is one container labeled with the patient's name and designated distal esophagus biopsy. The specimen consists of one irregular fragment of light ramirez soft tissue that measures 0.3 x 0.3 x 0.1 cm. The specimen is totally submitted in one cassette. / RALPH:maty 02/13/2022 TC:3 CPT: 12028 x2, 32667
[2022-02-12 02:21] LABS: Hematocrit 25.2 % (40-54); Hemoglobin 8.2 g/dL (13.0-16.5)
[2022-02-12] MEDS: Gabapentin 100 MG Capsule PO ×3 (05:55→21:18)
[2022-02-12] MEDS: 0.9% Normal Saline 1,000 ML 100 ML IV ×2 (05:55→17:47)
--- NOTE | 2022-02-12 05:55 | EKG12_ITS ---
Test Reason : AM EKG Blood Pressure : / mmHG Vent. Rate : 073 BPM Atrial Rate : 073 BPM P-R Int : 132 ms QRS Dur : 086 ms QT Int : 406 ms P-R-T Axes : 074 053 269 degrees QTc Int : 447 ms Normal sinus rhythm Nonspecific T wave abnormality Abnormal ECG Confirmed by SIMONA BOBBY, JOLENE ([id number]), restaurant expeditor ESTELLE PANCHAL ([id number]) on 02/13/2022 9:34:16 AM Referred By: NATHAN Confirmed By:JOLENE JARVIS MD
[2022-02-12 06:42] LABS: International Normalized Ratio 1.1; Prothrombin Time (Protime)PT. 13.6 SECONDS (11.7-14.9)
[2022-02-12 06:43] LABS: Partial Thromboplast Time 34.4 Seconds (24.1-36.2)
[2022-02-12 07:08] LABS: Absolute Lymphocyte Count 2.33 X10^3/uL (0.83-4.51); Absolute Neutrophil Count 5.7 X10^3/uL (2.0-7.7); Basophil# 0.04 X10^3/uL; Basophil% 0.4 % (0-1); Eosinophil# 0.13 X10^3/uL; Eosinophils% 1.4 % (0-5); Hematocrit 24.6 % (40-54); Hemoglobin 8.1 g/dL (13.0-16.5); Lymphocyte # 2.33 X10^3/ul (0.83-4.51); Lymphocyte % 25.9 % (19-41); Mean Corp Hgb Conc 32.9 g/dL (32-36); Mean Corpuscular Hgb 32.3 pg (27.0-32.0); Mean Platelet Vol. 10.2 fl (6.2-12.0); Monocyte% 8.9 % (0-10); NRBC Flagged by Analyzer 0 % (0-5); Neutrophil # 5.69 X10^3/uL (2.7-7.7); Neutrophil % 63.2 % (47-70); Platelet Count 143 K/mm3 (150-450); RBC Distribution Width CV 14.6 % (11.6-14.6); Red Blood Count 2.51 M/mm3 (4.6-6.2)
[2022-02-12 07:11] LABS: AST(SGOT) 12 U/L (15-37); Alanine Aminotransfer ALT/SGPT 17 U/L (16-61); Albumin, Serum 2.4 g/dL (3.2-5.0); Alkaline Phosphatase 52 U/L (45-117); Anion Gap 5 (5-15); BUN 14 mg/dL (7-18); BUN/Creat Ratio 15.7 RATIO (10-20); Bilirubin, Direct 0.13 mg/dL (0.00-0.30); Chloride 113 mmol/L (98-107); Creatinine, Serum 0.89 mg/dL (0.70-1.30); EST Glomerular Filtration Rate 89 mL/min (>60); Est Glom Filt Rate - Afr Amer 108 mL/min (>60); Estimated Creatinine Clearance 81.08 ml/min; Globulin 2.5 g/dL (2.2-4.2); Glucose 98 mg/dL (74-106); Potassium 3.7 mmol/L (3.5-5.1); Protein, Total 4.9 g/dL (6.4-8.2); Sodium Level 144 mmol/L (136-145)
[2022-02-12 08:10] LABS: Magnesium 2.1 mg/dL (1.6-2.6)
--- NOTE | 2022-02-12 09:50 | CASEMGMT ---
NIKITA BACA Assessment: Face to Face with pt for initial transition planning/care coordination assessment. RN KEVEN introduced self and role at [facility], pt voices understanding and consents to assessment. Pt is A/O x4 and answers all questions appropriately at this time. Care providers, pharmacy, and demographics verified/updated. Pt nurse present in room during assessment. Admitting Dx: acute GIB, acute blood loss, anemia PCP:Yves TRAN Specialists:frank Hernandez Preferred Pharmacy: [facility] Insurance: [place] [facility] Prescription Benefit: yes LW/HPOA: Pt states he has a LW/DPOA. He would not disclose who this was stating it was none of your business. Attempted to make pt aware that this is helpful information in case he cannot make decisions for himself it would guide staff to who he would want to make them for him. Pt still denied. He is aware it is not on file at [facility]. LNOK: Elisa Holder, Living Arrangements: Pt lives with in a single story house with no steps to enter. Pt reports he is I in ADL's and denies concerns at home. Transportation: Pt drives self and denies concerns with transportation. DME/HHC/SNF: Pt denies having any DME in the home, previous HHC or SNF stays. Pt states no concerns with going home at time of dc. Pt states no further concerns/needs. CM to follow. Advised pt to ask CM if any further question/concerns/needs arise, voices understanding. Pt Goal: Home Plan: Home
--- NOTE | 2022-02-12 13:15 | PN.HOSP_ITS ---
Subjective Subjective Patient seen and examined. He had no active complaints this morning and had an uneventful night.He has not had any more dark stools since admission. He is currently n.p.o. awaiting GI evaluation. Review of systems otherwise negative. Objective Data Objective Data Vital Signs: Vital Signs Temp Pulse Resp BP Pulse Ox O2 Del Method 98.4 F 71 16 137/76 H 94 Room Air 02/12/22 10:20 02/12/22 11:00 02/12/22 10:20 02/12/22 10:20 02/12/22 10:20 02/12/22 10:20 Oxygen Delivery Method Room Air Weight: 166 lb 3.657 oz Body Mass Index (BMI) 23.1 Intake & Output: Intake and Output for Last 24 Hours 02/10/22 02/11/22 02/12/22 23:59 23:59 23:59 Intake Total 220 / 220 1316.66 / 1316.66 Balance 220 / 220 1316.66 / 1316.66 Lab / Micro Data Result Diagrams: 02/12/22 06:20 02/12/22 06:20 Labs: Laboratory Results - last 24 hr 02/11/22 15:35: WBC 9.1, RBC 2.76 L, Hgb 8.8 L, Hct 26.9 L, MCV 97.5 H, MCH 31.9, MCHC 32.7, RDW Std Deviation 51.6 H, RDW Coeff of Itz 14.6, Plt Count 161, MPV 10.9, Immature Gran % (Auto) 0.400, Neut % (Auto) 66.4, Lymph % (Auto) 23.7, [place] % (Auto) 7.5, Eos % (Auto) 1.4, Baso % (Auto) 0.6, Absolute Neuts (auto) 6.0, Absolute Lymphs (auto) 2.15, Nucleated RBC % 0 02/11/22 15:35: Sodium 146 H, Potassium 3.8, Chloride 112 H, Carbon Dioxide 30.0, Anion Gap 4 L, BUN 19 H, Creatinine 0.92, Estim Creat Clear Calc 76.04, Est GFR (MDRD) Af Amer 104, Est GFR (MDRD) Non-Af 86, BUN/Creatinine Ratio 20.6 H, Glucose 111 H, Calcium 8.7, Total Bilirubin 0.40, AST 9 L, ALT 18, Alkaline Phosphatase 54, Total Protein 5.6 L, Albumin 2.7 L, Globulin 2.9, Albumin/G lobulin Ratio 0.9, Lipase 128 02/11/22 15:35: Magnesium 2.5 02/11/22 16:12: Blood Type A POSITIVE, Antibody Screen NEGATIVE 02/11/22 22:25: Hgb 8.2 L, Hct 25.1 L 02/12/22 02:12: Hgb 8.2 L, Hct 25.2 L 02/12/22 06:20: WBC 9.0, RBC 2.51 L, Hgb 8.1 L, Hct 24.6 L, MCV 98.0 H, MCH 32.3 H, MCHC 32.9, RDW Std Deviation 51.0 H, RDW Coeff of Itz 14.6, Plt Count 143 L, MPV 10.2, Immature Gran % (Auto) 0.200, Neut % (Auto) 63.2, Lymph % (Auto) 25.9, [place] % (Auto) 8.9, Eos % (Auto) 1.4, Baso % (Auto) 0.4, Absolute Neuts (auto) 5.7, Absolute Lymphs (auto) 2.33, Nucleated RBC % 0 02/12/22 06:20: Sodium 144, Potassium 3.7, Chloride 113 H, Carbon Dioxide 26.0, Anion Gap 5, BUN 14, Creatinine 0.89, Estim Creat Clear Calc 81.08, Est GFR (MDRD) Af Amer 108, Est GFR (MDRD) Non-Af 89, BUN/Creatinine Ratio 15.7, Glucose 98, Calcium 8.0 L, Total Bilirubin 0.40, Direct Bilirubin 0.13, AST 12 L, ALT 17, Alkaline Phosphatase 52, Total Protein 4.9 L, Albumin 2.4 L, Globulin 2.5, Albumin/Globulin Ratio 1.0 02/12/22 06:20: PT 13.6, INR 1.1, APTT 34.4 02/12/22 06:20: Magnesium 2.1 Physical Exam Const alert, oriented x3 and no apparent distress HEENT head/scalp atraumatic, moist oral mucous membranes and oropharynx normal Head and Scalp: normocephalic Mouth: dry mucous membranes Eyes PERRL and EOMs intact bilaterally Neck no lymphadenopathy, supple and no JVD Resp normal respiratory effort, no retractions, no use of accessory muscles and clear to auscultation bilaterally Cardio regular rate, regular rhythm, S1 normal heart sound, S2 normal heart sound and no murmurs GI normal to inspection, nondistended, normoactive bowel sounds, soft to palpation, non-tender and non-distended Extremity normal to inspection, full ROM and no clubbing, cyanosis or edema Neuro oriented x3, CN's II-XII intact bilaterally and moves all extremities Motor Exam: strength 5/5 throughout Psych affect normal Assessment & Plan Assessment/Plan (1) GI bleed: PLAN: Plan #Acute blood loss anemia due to acute GI bleed * Currently p.o. Hemoglobin this morning is 8.1. Previous hemoglobin was around 13 on 01/27/2022. * On IV PPI. * Has been using NSAIDs at home. * Gastroenterology consulted. Awaiting evaluation. * continue gentle hydration with IVF #CAD s/p stents: aspirin on hold. On statin #Hypertension; BP meds held due to positive orthostatic hypotension. #COPD: On breathing treatments bronchodilators. #Hyperlipidemia: On statin DVT prophylaxis: SCDs. Charges/Coding Visit Charges Inpatient E&M: 84074 Subs Hosp L2
[2022-02-12] MEDS: Lactated Ringers 1,000 ML 15 ML IV (14:45)
--- NOTE | 2022-02-12 16:00 | IMM_PTH ---
PATIENT: YARIEL REICH LOC: MS3 U#:[id number] AGE/SX: 71/M ROOM: IL316 RE02/11/[address]: Dr. Kristina Mendez MD : 1950 BED: 1 DIS: 02/13/2022 SPEC #: [id number] RECD: 02/13/22 10:11 STATUS: ERIC DAVILA #: [id number] POLO: 02/12/22 16:[address]: Antonio Moralez DEPT: IMMUNOHISTOCHEMISTRY RECD BY: Jyothi Mccarthy ENTERED: 02/13/22 10:13 SP TYPE: IMMUNO OTHR DR: MD Dr. Kristina Alston MD M Gregory [place], [place] Tissues: A - Stomach, NOS Procedures: H Pylori (initial) PHYSICIAN & INSTITUTION [place] [address] SPECIMEN INFORMATION: Tissue Source: A ? Gastric ulcer biopsy Clinical Info: GI bleed Specimen Number: [id number] CPT code: 55088 METHODOLOGY: Deparaffinized sections of prefer/formalin-fixed tissue or PAP/DQ stained slides are incubated with monoclonal/polyclonal antibodies/oligonucleotide probes. Localization is made via biotin free immunoperoxidase method. Appropriate controls are performed and reacted as expected. Results on target cell population are indicated in the following table: RESULTS: ANTIBODY / CLONE RESULT Block A H Pylori (polyclonal) positive These tests were developed and their performance characteristics determined by [facility]. They may not have been cleared or approved by the U.S. Food and Drug Administration. The FDA has determined that such clearance or approval is not necessary. The above immunohistochemical/dualISH markers are ordered and reviewed by the Pathologist. INTERPRETATION: A. Gastric ulcer, biopsy: Positive for a few Helicobacter pylori organisms. SJ:maty 02/14/2022 Case has been reviewed in consultation with Dr. Yarbrough who concurs with the above diagnosis. IDC:[id number]
--- NOTE | 2022-02-12 17:09 | OP.EGD_ITS ---
Patient Name: Gaurav Holder Procedure Date: 02/12/2022 4:48 PM Date of : 1950 Age: 71 Procedure: Upper GI endoscopy Indications: Epigastric abdominal pain, Melena Providers: Antonio Moralez DO Medicines: Monitored Anesthesia Care Patient Profile: This is a 71 year old male. Refer to note in patient chart for documentation of history and physical. Patient has symptoms. Complications: No immediate complications. Procedure: Pre-Anesthesia Assessment: - Prior to the procedure, a History and Physical was performed, and patient medications and allergies were reviewed. The patient is competent. The risks and benefits of the procedure and the sedation options and risks were discussed with the patient. All questions were answered and informed consent was obtained. Patient identification and proposed procedure were verified by the physician in the pre-procedure area. Mental Status Examination: alert and oriented. Airway Examination: normal oropharyngeal airway and neck mobility. Respiratory Examination: clear to auscultation. CV Examination: normal. Prophylactic Antibiotics: The patient does not require prophylactic antibiotics. Prior Anticoagulants: The patient has taken no previous anticoagulant or antiplatelet agents. After reviewing the risks and benefits, the patient was deemed in satisfactory condition to undergo the procedure. The anesthesia plan was to use monitored anesthesia care (MAC). Immediately prior to administration of medications, the patient was re-assessed for adequacy to receive sedatives. The heart rate, respiratory rate, oxygen saturations, blood pressure, adequacy of pulmonary ventilation, and response to care were monitored throughout the procedure. The physical status of the patient was re-assessed after the procedure. After obtaining informed consent, the endoscope was passed under direct vision. Throughout the procedure, the patient's blood pressure, pulse, and oxygen saturations were monitored continuously. The Endoscope was introduced through the mouth, and advanced to the second part of duodenum. The upper GI endoscopy was accomplished with ease. The patient tolerated the procedure well. Scope In: 4:56:52 PM Scope Out: 5:02:07 PM Total Procedure Duration Time 0 hours 5 minutes 15 seconds Findings: A 5 mm bleeding [place] tear with stigmata of recent bleeding was found. Coagulation for hemostasis using heater probe was successful. Estimated blood loss was minimal. A medium-sized hiatal hernia was present. One oozing cratered gastric ulcer with a visible vessel was found in the gastric antrum. The lesion was 6 mm in largest dimension. Coagulation for hemostasis using heater probe was successful. Biopsies were taken with a cold forceps for histology. Verification of patient identification for the specimen was done. Estimated blood loss was minimal. The first portion of the duodenum was normal. Impression: - [place] tear. Treated with a heater probe. - Medium-sized hiatal hernia. - Oozing gastric ulcer with a visible vessel. Treated with a heater probe. Biopsied. - Normal first portion of the duodenum. Recommendation: - Discharge patient to home. - Resume regular diet today. - No aspirin, ibuprofen, naproxen, or other non-steroidal anti-inflammatory drugs for 4 weeks. - Await pathology results. - Repeat upper endoscopy in 3 months to check healing. - Use sucralfate tablets 1 gram PO QID for 4 weeks. - Use Protonix (pantoprazole) 40 mg PO BID for 8 weeks. Procedure Code(s): --- Professional --- 16703, 59, Esophagogastroduodenoscopy, flexible, transoral; with control of bleeding, any method 02629, 51, Esophagogastroduodenoscopy, flexible, transoral; with biopsy, single or multiple CPT copyright 2017 [employer]. All rights reserved. The codes documented in this report are preliminary and upon bi report developer review may be revised to meet current compliance requirements. Antonio Moralez DO 02/12/2022 5:09:11 PM This report has been signed electronically. Number of Addenda: 0 Note Initiated On: 02/12/2022 4:48 PM
--- NOTE | 2022-02-12 17:10 | OP.CCLET_ITS ---
02/12/2022 Silverio Ponce Re : Upper GI endoscopy procedure for Gaurav Holder Dear Kris This procedure was performed on Saturday, February 12, 2022. My impressions and recommendations are as follows: Impressions : - [place] tear. Treated with a heater probe. - Medium-sized hiatal hernia. - Oozing gastric ulcer with a visible vessel. Treated with a heater probe. Biopsied. - Normal first portion of the duodenum. Recommendations : - Discharge patient to home. - Resume regular diet today. - No aspirin, ibuprofen, naproxen, or other non-steroidal anti-inflammatory drugs for 4 weeks. - Await pathology results. - Repeat upper endoscopy in 3 months to check healing. - Use sucralfate tablets 1 gram PO QID for 4 weeks. - Use Protonix (pantoprazole) 40 mg PO BID for 8 weeks. My findings are described in the full procedure note, which is enclosed. If I can be of further assistance, please feel free to contact me at . Sincerely, Antonio Moralez, 02/12/2022 5:09:11 PM This report has been signed electronically.
[2022-02-12] MEDS: Sucralfate 1 GM Tablet PO (17:44)
[2022-02-12] MEDS: Ipratropium/Albuterol Sulfate 3 ML AMPUL.NEB INHALATION (19:43)
[2022-02-12] MEDS: Atorvastatin Calcium 40 MG Tablet PO (21:18)
[2022-02-12] MEDS: BENZOCAINE/MENTHOL 1 LOZENGE MUCOUS MEM (22:32)
[2022-02-13 03:00] VITALS: PULSE 59
[2022-02-13] MEDS: 0.9% Normal Saline 1,000 ML 100 ML IV (03:42)
[2022-02-13 03:46] VITALS: BP 111/69; PULSE 66; RESP 18; TEMP 36.4; O2SAT 96
[2022-02-13] MEDS: Sucralfate 1 GM Tablet PO (06:07)
[2022-02-13] MEDS: Gabapentin 100 MG Capsule PO (06:07)
[2022-02-13] MEDS: Ipratropium/Albuterol Sulfate 3 ML AMPUL.NEB INHALATION (07:23)
[2022-02-13 07:24] VITALS: PULSE 69; RESP 17; O2SAT 96
[2022-02-13 07:28] LABS: Absolute Neutrophil Count 4.2 X10^3/uL (2.0-7.7); Basophil# 0.05 X10^3/uL; Basophil% 0.7 % (0-1); Eosinophil# 0.13 X10^3/uL; Eosinophils% 1.9 % (0-5); Hematocrit 25.7 % (40-54); Hemoglobin 8.5 g/dL (13.0-16.5); Lymphocyte % 25.4 % (19-41); Mean Corp Hgb Conc 33.1 g/dL (32-36); Mean Corpuscular Hgb 32.4 pg (27.0-32.0); Mean Corpuscular Volume 98.1 fL (80-94); Monocyte# 0.56 X10^3/uL; Monocyte% 8.4 % (0-10); NRBC Flagged by Analyzer 0 % (0-5); Neutrophil # 4.24 X10^3/uL (2.7-7.7); Neutrophil % 63.3 % (47-70); Platelet Count 152 K/mm3 (150-450); RBC Distribution Width CV 14.6 % (11.6-14.6); Red Blood Count 2.62 M/mm3 (4.6-6.2); White Blood Count 6.7 K/mm3 (4.4-11.0)
[2022-02-13 08:07] LABS: Anion Gap 5 (5-15); BUN 10 mg/dL (7-18); BUN/Creat Ratio 12.9 RATIO (10-20); Calcium,Total 8.1 mg/dL (8.5-10.1); Chloride 114 mmol/L (98-107); Creatinine, Serum 0.78 mg/dL (0.70-1.30); EST Glomerular Filtration Rate 105 mL/min (>60); Est Glom Filt Rate - Afr Amer 127 mL/min (>60); Estimated Creatinine Clearance 72.16 ml/min; Glucose 96 mg/dL (74-106); Potassium 3.7 mmol/L (3.5-5.1); Sodium Level 144 mmol/L (136-145)
--- NOTE | 2022-02-13 08:53 | DS.PCM_ITS ---
Providers Date of Admission: 02/11/22 Date of Discharge: 02/13/22 Primary Care Physician: MARC Iglesias Consultations 02/11/22 17:57 Consult: Gastroenterology Routine Consulting Provider: [facility] Reason for Consult: GI bleed, acute blood loss anemia EMERGENT Consult: No MD Notified: Yes Date Notified: 02/11/22 Time Notified: 17:04 Method of Notification: ED Physician Initiated Reason For Visit: ACUTE GI BLEED, ACUTE BLOOD LOSS, ANEMIA Diagnosis Discharge Diagnosis (1) GI bleed: Status: Acute Code(s): K92.2 - Gastrointestinal hemorrhage, unspecified Plan #Acute blood loss anemia due to acute GI bleed * Currently p.o. Hemoglobin this morning is 8.1. Previous hemoglobin was around 13 on 01/27/2022. * On IV PPI. * Has been using NSAIDs at home. * Gastroenterology consulted. Awaiting evaluation. * continue gentle hydration with IVF #CAD s/p stents: aspirin on hold. On statin #Hypertension; BP meds held due to positive orthostatic hypotension. #COPD: On breathing treatments bronchodilators. #Hyperlipidemia: On statin DVT prophylaxis: SCDs. Medications at Discharge Home Medications nitroglycerin 0.4 mg sublingual tablet 0.4 mg sublingual Q5M PRN Angina pain #25 tabs 09/01/18 atorvastatin 40 mg tablet 40 mg PO DAILY #90 tabs 08/27/21 isosorbide mononitrate 30 mg tablet,extended release 24 hr 30 mg PO DAILY #90 tabs 10/26/21 carvedilol 6.25 mg tablet 6.25 mg PO BID #180 tabs 11/28/21 losartan 100 mg tablet 100 mg PO DAILY #90 tabs 12/13/21 albuterol sulfate 90 mcg/actuation aerosol inhaler (Ventolin HFA) 2 puff inhalation Q4H #8.5 grams 01/02/22 fluticasone fur. 100 mcg-umeclid 62.5 mcg-vilant 25 mcg inhalat.powder (Trelegy Ellipta) 1 inh inhalation DAILY SOB 01/27/22 gabapentin 100 mg capsule 100 mg PO TID NERVE PAIN 02/11/22 qkfycxxb-qlu-iwxcz acid 0.4 mg-lycopene 300 mcg-lutein 250 mcg tablet (Centrum Silver) 1 tab PO DAILY 02/11/22 triamcinolone acetonide 0.1 % topical cream 0.1 applic topical BID 02/11/22 pantoprazole 40 mg tablet,delayed release 40 mg PO BID 8 weeks #112 tabs 02/13/22 sucralfate 1 gram tablet 1 g PO Q6H 4 weeks #112 tabs 02/13/22 Hospital Course Operations None Procedures EGD Summary of Care Provided Minutes Spent on Discharge: 45 Hospital Course: Jem is a 71-year-old male with past medical history as outlined was admitted through the ED on 02/11/2022 with a complaint of hematemesis and dark maroon stools. 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 He had associated lightheadedness which worsened from sitting to standing. He came into the ED because of the symptoms and was found to have hemoglobin of 8.8. Hemoglobin had been 13.6 as recently as 01/27/2022. He was admitted and managed for acute GI bleed. Gastroenterology was consulted. He was hydrated with IV fluids. His aspirin was held. Orthostatics were positive and so his blood pressure medications were also held. He had EGD on 02/12/2022 which showed a [place]-Hare tear which was treated with heater probe as well as an oozing gastric ulcer with a visible vessel which was also treated with heater probe. He remained stable and was discharged home on 02/13/2022. He was discharged on p.o. Protonix 40 mg twice daily for 8 weeks as well as p.o. sucralfate 1 mg p.o. 4 times daily for 4 weeks. Patient was not to be on any aspirin or NSAIDs for the next 4 weeks. He is follow-up with his primary care doctor and gastroenterology within 2 to 3 weeks. Patient seen and examined prior to discharge. He felt well and was eager to be discharged home. He had no active complaints and review of systems otherwise negative. Labs and vitals reviewed. Home medication reviewed and reconciled. Physical Exam Const alert, oriented x3 and no apparent distress General Appearance: cooperative, comfortable and well kempt Orientation / Consciousness: awake Exam Limitations: no limitations HEENT normocephalic, head/scalp atraumatic, hearing grossly normal bilaterally, moist oral mucous membranes and oropharynx normal Mouth: oral and palatal mucosa normal Eyes PERRL and EOMs intact bilaterally Neck no lymphadenopathy, supple and no JVD Resp normal respiratory effort, no retractions, no use of accessory muscles and clear to auscultation bilaterally Cardio regular rate, regular rhythm, S1 normal heart sound, S2 normal heart sound and no murmurs GI normal to inspection, nondistended, normoactive bowel sounds, soft to palpation, non-tender and non-distended Extremity normal to inspection, full ROM and no clubbing, cyanosis or edema Skin no rashes or lesions noted Neuro oriented x3, CN's II-XII intact bilaterally, moves all extremities and no focal motor deficits Speech: speech normal Motor Exam: strength 5/5 throughout Psych affect normal Weight / BMI Weight Weight: 166 lb 3.657 oz Body Mass Index (BMI) 23.1 ABG / Lab / Microbiology Data Result Diagrams: 02/13/22 06:45 02/13/22 06:45 Laboratory: Laboratory Results - last 24 hr 02/13/22 06:45: WBC 6.7, RBC 2.62 L, Hgb 8.5 L, Hct 25.7 L, MCV 98.1 H, MCH 32.4 H, MCHC 33.1, RDW Std Deviation 51.0 H, RDW Coeff of Itz 14.6, Plt Count 152, MPV 11.0, Immature Gran % (Auto) 0.300, Neut % (Auto) 63.3, Lymph % (Auto) 25.4, Gonzales % (Auto) 8.4, Eos % (Auto) 1.9, Baso % (Auto) 0.7, Absolute Neuts (auto) 4.2, Absolute Lymphs (auto) 1.70, Nucleated RBC % 0 02/13/22 06:45: Sodium 144, Potassium 3.7, Chloride 114 H, Carbon Dioxide 25.0, Anion Gap 5, BUN 10, Creatinine 0.78, Estim Creat Clear Calc 72.16, Est GFR (MDRD) Af Amer 127, Est GFR (MDRD) Non-Af 105, BUN/Creatinine Ratio 12.9, Glucose 96, Calcium 8.1 L D/C Instructions Discharge Diet: Low fat / Low cholesterol Discharge Activity: Return to Normal Activity Weight Bearing Status: Weight bearing as tolerated Call your doctor if you observe: Fever of 101 or Higher, Dizziness, Increased palpitations (irregular heartbeat) and Uncontrolled pain Meaningful Use Info Meaningful Use Diagnoses (Choose all that apply): None applicable Discharge Plan Admission Admit Date/Time: 02/11/22 17:02 Primary Reason for Your Visit: acute GI bleed Attending Provider: Kristina Mendez Primary Care Provider: Silverio Ponce Consulting Providers: My Curry Instructions Patient Instructions: Bleeding Peptic Ulcer: Treatment Discharge Orders/Prescriptions Prescriptions: New sucralfate 1 gram tablet 1 g PO Q6H 28 Days Qty: 112 0RF pantoprazole 40 mg tablet,delayed release (DR/EC) 40 mg PO BID 56 Days Qty: 112 0RF Continued albuterol sulfate [Ventolin HFA] 90 mcg/actuation HFA aerosol inhaler 2 puff INHALATION Q4H Qty: 8.5 5RF Trelegy Ellipta 100-62.5-25 mcg blister with device 1 inh INHALATION DAILY Label Comments: use 1 (ONE) INHALATION DAILY triamcinolone acetonide 0.1 % cream 0.1 applic TOPICAL BID Label Comments: Apply 1 application to affected area twice daily. gabapentin 100 mg capsule 100 mg PO TID Label Comments: Take 1 capsule by mouth three times daily Centrum Silver 0.4 mg-300 mcg- 250 mcg Tablet 1 tab PO DAILY nitroglycerin 0.4 mg tablet, sublingual 0.4 mg Sublingual Q5M PRN (Reason: Angina pain) Qty: 25 3RF atorvastatin 40 mg tablet 40 mg PO DAILY Qty: 90 3RF isosorbide mononitrate 30 mg tablet extended release 24 hr 30 mg PO DAILY Qty: 90 3RF carvedilol 6.25 mg tablet 6.25 mg PO BID Qty: 180 3RF losartan 100 mg tablet 100 mg PO DAILY Qty: 90 3RF Discontinued aspirin 81 MG tablet 81 mg PO DAILY@0800 Qty: 30 0RF meloxicam 15 mg tablet 15 mg PO DAILY PRN PRN (Reason: Pain) Label Comments: Take 1 tablet by mouth once daily. With food. Referrals / Follow Up: Antonio Moralez DO [Med Staff - Active Staff] - Within 2 Weeks Silverio Ponce PA [Primary Care Provider] - Within 2 Weeks Disposition Disposition (needs filled in before D/C Order can be placed): Home, Self Care Charges/Coding Visit Charges Inpatient E&M: 03682 Disch Hosp
[2022-02-13 09:22] VITALS: BP 146/77; PULSE 79; RESP 18; TEMP 36.8; O2SAT 97
== END 2022-02-13 09:30 | disposition home or self-care (01) | DRG 369 ==
LOC: ED 15:21 → MS3 17:40
PROVIDERS: Anesthesiology; Internal Medicine Gastroenterology; Admitting Provider Family Medicine; Emergency Provider Student in an Organized Health Care Education/Training Program; PCP Physician Assistant; Visit Provider Student in an Organized Health Care Education/Training Program
PROC: 0DJ08ZZ Inspection of Upper Intestinal Tract, Via Natural or Artificial Opening Endoscopic (ICD-10-PCS; CPT 43235; principal; 2022-02-12 15:55)
DX: K22.6 Gastro-esophageal laceration-hemorrhage syndrome (principal); D62 Acute posthemorrhagic anemia; J44.9 Chronic obstructive pulmonary disease, unspecified; I10 Essential (primary) hypertension; E78.5 Hyperlipidemia, unspecified; I25.10 Atherosclerotic heart disease of native coronary artery without angina pectoris; I95.1 Orthostatic hypotension; K44.9 Diaphragmatic hernia without obstruction or gangrene; G51.0 Bell's palsy; K25.9 Gastric ulcer, unspecified as acute or chronic, without hemorrhage or perforation; Z79.02 Long term (current) use of antithrombotics/antiplatelets; Z82.3 Family history of stroke; Z79.82 Long term (current) use of aspirin; Z77.22 Contact with and (suspected) exposure to environmental tobacco smoke (acute) (chronic); Z95.5 Presence of coronary angioplasty implant and graft
CPT/HCPCS: 36415; 80048; 80053; 82248; 83690; 83735; 85014; 85018; 85025; 85610; 85730; 86850; 86900; 86901; 88305; 88313; 88342; 93005; 94640; 99285; J7030; J7050; J7120; A4216

== ENCOUNTER → 2022-11-11 | Outpatient (CLI) | payer MEDICARE, SELFPAY ==
[2018-07-10 14:12] VITALS: BMI 24.7
--- NOTE | 2022-11-11 15:53 | STRESSREP_ITS ---
Stress Test Report Exercise myocardial perfusion stress test. 72-year-old man with a history of coronary artery disease Stress protocol: Resting EKG demonstrates normal sinus rhythm with a rate of 59 bpm resting blood pressure is 134/80 mmHg. The patient exercised according to the regular Thomas protocol for a total duration of 5 minutes and 10 seconds attaining a maximum heart rate of 126 bpm which was 85% of maximum predicted heart rate; the maximum workload was 7 metabolic equivalents. At rest there were no ST or T wave changes noted to suggest ischemia and at peak exercise upsloping ST changes only were noted which did not meet the criteria for ischemia. No clinical angina was noted the test was terminated due to the target heart rate being achi eved/fatigue. The peak blood pressure was 192/90 mmHg. Rate-pressure product was 23,600. Myocardial perfusion protocol. 11.4 mCi of technetium 99m sestamibi was injected at rest. The patient exerc ised according to regular Thomas protocol for total duration of 5 minutes and 10 seconds and at peak exercise 34.1 mCi of technetium 99m sestamibi was injected stress images were obtained stress and rest images were reconstructed in comparing the short axis vertical long and horizontal long axis. Gated images were also obtained. Perfusion SPECT analysis: Review of the stress images demonstrate normal uptake of tracer noted in all areas of the myocardium. The resting images similarly demonstrate normal uptake of tracer noted in all areas of the myocardium. No areas of reversibility are noted to suggest ischemia no previous infarct was noted. Gated SPECT analysis: The gated ejection fraction is 56%. Conclusion: Normal exercise myocardial perfusion stress test at a moderate workload Preserved ejection fraction.
== END | disposition home or self-care (01) ==
LOC: CVS 06:32
PROVIDERS: PCP Physician Assistant; Referring Provider Nurse Practitioner Gerontology; Visit Provider Nurse Practitioner Gerontology
DX: I25.10 Atherosclerotic heart disease of native coronary artery without angina pectoris (principal)
CPT/HCPCS: 78452; 93017; A9500; A4216

== ENCOUNTER → 2023-02-11 | Outpatient (CLI) | payer MEDICARE, SELFPAY ==
[2018-07-10 14:12] VITALS: BMI 24.7
--- NOTE | 2023-02-11 18:05 | CT_ITS ---
STUDY: LOW DOSE CT LUNG CANCER SCREENING REASON FOR EXAM: Male, 72 years old. smoker and gt; 40 pack year history RADIATION DOSAGE (If Supplied By Facility): CTDIvol = ( 3.02 ) mGy, DLP = ( 118.90 ) mGycm TECHNIQUE: No contrast was administered. Low dose technique was utilized (average mAS-38 and kVp 120). 1.25 mm axial source images with a slice interval of 1.25-mm were reconstructed in lung windows. COMPARISON: Prior study dated: 01/04/2022 NODULES: Total lung nodules (excluding granulomas): 0 Emphysema: Mild paraseptal emphysema which is greatest in the upper lobes. Endobronchial lesion: None Aorta: Normal caliber with mild atherosclerotic calcification. CORONARY ARTERIES: Coronary artery calcification is seen. Heart: Normal size. No pericardial effusion. Pulmonary artery: Normal. Mediastinal nodes: None. Other chest and abdominal findings: Small hiatal hernia. No acute osseous abnormality. Chronic healed left-sided rib fractures. CT/Low Dose CT Lung Screening IMPRESSION: Lung-RADS category 1 - Continue annual screening with LDCT in 12 months. IMPORTANT NOTES FOR USE: ACR Lung-RADS Version 1.1 Assessment Categories Release Date: 2018 Category: Coded 0-4 bases on nodule(s) with highest degree of suspicion. Negative screen is defined as categories 1 and 2; a positive screen is defined as categories 3 and 4. Category 3 and 4A nodules that are unchanged on interval CT should be coded as category 2, and individuals returned to screening in 12 months. Category 4X: Category 3 or 4 nodules with additional imaging findings that increase the suspicion of lung cancer, such as spiculation, GGN that doubles in size in 1 year, enlarged lymph notes, etc. Category Modifiers: S (significant finding unrelated to lung cancer) Electronically Signed: Anthony Ramos MD at 20:10 EDT Reading Location ID and State: [facility] / [place] Tel , Service support ,
== END | disposition home or self-care (01) ==
LOC: CT 17:27
PROVIDERS: PCP Physician Assistant; Visit Provider Nurse Practitioner Acute Care
DX: Z87.891 Personal history of nicotine dependence (principal)
CPT/HCPCS: 71271

== ENCOUNTER → 2023-08-07 | Outpatient (CLI) | payer MEDICARE, SELFPAY ==
[2018-07-10 14:12] VITALS: BMI 24.7
--- NOTE | 2023-08-07 09:55 | RAD_ITS ---
EXAM: XR CHEST, 2 VIEWS CLINICAL INDICATION: cad TECHNIQUE: Frontal and lateral views of the chest. COMPARISON: 01/27/2022 FINDINGS: LUNGS AND PLEURAL SPACES: Hyperinflated lungs perhaps secondary to COPD without evidence of focal pneumonia. No pneumothorax. No effusion. HEART: No significant abnormality. Cardiac silhouette not enlarged. MEDIASTINUM: Central airways and mediastinal contour are unremarkable. BONES/JOINTS: Postoperative changes of the left clavicle and degenerative changes in the spine. No acute fracture. SOFT TISSUES: No significant abnormality. RAD/Chest PA and Lateral IMPRESSION: Hyperinflated lungs perhaps secondary to COPD without evidence of focal pneumonia. Electronically Signed: Delroy Ragsdale DO at 0:03 EDT ,
[2023-08-07 11:05] LABS: Absolute Lymphocyte Count 2.75 X10^3/uL (0.83-4.51); Absolute Neutrophil Count 5.5 X10^3/uL (2.0-7.7); Basophil# 0.08 X10^3/uL; Basophil% 0.9 % (0-1); Eosinophil# 0.09 X10^3/uL; Hematocrit 48.3 % (40-54); Hemoglobin 15.8 g/dL (13.0-16.5); Lymphocyte # 2.75 X10^3/ul (0.83-4.51); Lymphocyte % 29.7 % (19-41); Mean Corp Hgb Conc 32.7 g/dL (32-36); Mean Corpuscular Volume 91.8 fL (80-94); Mean Platelet Vol. 11.3 fl (6.2-12.0); Monocyte# 0.77 X10^3/uL; Monocyte% 8.3 % (0-10); NRBC Flagged by Analyzer 0 % (0-5); Neutrophil # 5.53 X10^3/uL (2.7-7.7); Neutrophil % 59.8 % (47-70); Platelet Count 175 K/mm3 (150-450); RBC Distribution Width CV 14.6 % (11.6-14.6); RBC Distribution Width SD 49.4 fl (35.1-43.9); Red Blood Count 5.26 M/mm3 (4.6-6.2); White Blood Count 9.3 K/mm3 (4.4-11.0)
[2023-08-07 11:26] LABS: Anion Gap 4 (5-15); BUN 13 mg/dL (7-18); BUN/Creat Ratio 12.3 RATIO (10-20); Chloride 106 mmol/L (98-107); Creatinine, Serum 1.06 mg/dL (0.70-1.30); EST Glomerular Filtration Rate 73 mL/min (>60); Est Glom Filt Rate - Afr Amer 88 mL/min (>60); Glucose 92 mg/dL (74-106); Potassium 3.8 mmol/L (3.5-5.1); Sodium Level 141 mmol/L (136-145)
== END | disposition home or self-care (01) ==
LOC: RAD 09:53
PROVIDERS: PCP Physician Assistant; Referring Provider Internal Medicine Cardiovascular Disease; Visit Provider Internal Medicine Cardiovascular Disease
DX: R06.02 Shortness of breath (principal); I25.10 Atherosclerotic heart disease of native coronary artery without angina pectoris
CPT/HCPCS: 36415; 71046; 80048; 85025

== ENCOUNTER 2023-08-19 06:44 | Day surgery (SDC) | payer MEDICARE, SELFPAY ==
[2018-07-10 14:12] VITALS: BMI 24.7
[2023-08-18 09:21] VITALS: BMI 25.5
--- NOTE | 2023-08-19 09:08 | CL.D_ITS ---
Patient Name: YARIEL REICH Study Date: 08/19/2023 Performing: Vinh Yuan MD Ht: 71 inches 180.34 cm : 1950 Wt: 183.01 lbs 83.01 kg Age: 73 Gender: male BSA: 2.03 PROCEDURE(S) PERFORMED DC01-([id number])LHC/COR/LV CLINICAL PROFILE AND INDICATIONS Indications: Suspected CAD Heart Failure: None Stress/Imaging Stress/Image Study Performed: No CAD Presentations: Symptom unlikely to be ischemic. CONCLUSIONS Nonobstructive coronary disease in the LAD and previously placed stent in the right coronary artery which is stable and patent with preserved ejection fraction. RECOMMENDATIONS Guideline directed medical therapy. DESCRIPTION OF PROCEDURE The patient arrived to the procedure lab. The risks and benefits of the procedure as well as a full description of our services here and current unavailability of surgical backup were fully explained to the patient and/or their significant other prior to the catheterization. The Timeout was completed, verifying the correct patient and procedure. The patient's procedural site was prepped and draped in the usual fashion. Local anesthetic was given subcutaneously to right radial region with Lidocaine 2%. Using a modified Seldinger technique, arterial access was obtained via the right radial artery, a 6Fr sheath was inserted. Left Coronary Artery selective angiography was performed in multiple views using a 5 Fr. 4.0 Cecil catheter. Right Coronary Artery selective angiography was then performed in multiple views using a 5 Fr. 4.0 Cecil catheter. Left Coronary Artery selective angiography was performed in multiple views using a 5 Fr. JL3.5 catheter. Left Ventriculography was performed in MURO projection using a 5 Fr. Pigtail catheter. LV to AO pullback pressures were then recorded.The arterial sheath was pulled and a TR Band was applied for hemostasis. 10cc of air CORONARY ANGIOGRAPHY DOMINANCE: Right Dominant LEFT HEART ASSESSMENT Left Ventricular Ejection Fraction: by LV Gram 60 % Normal LV wall motion Normal Left Ventricular systolic function LEFT MAIN: Mild calcification, Angiographically normal LEFT ANTERIOR DESCENDING ARTERY: Medium size vessel with a medium sized first diagonal branch. There is moderate calcification and moderate stenosis noted with no areas of stenosis greater than 50% present. Mild diffuse distal disease is present. CIRCUMFLEX ARTERY: Mild luminal irregularities less than 30% RIGHT CORONARY ARTERY: Previously stented vessel with patent stents and mild in-stent stenosis of 20 to 30% in the proximal and mid segments. Distally [place] vessel disease of approximately 30% is present. Large posterior descending artery and posterolateral vessel are present. COMPLICATIONS No Complications PROCEDURE MEDICATIONS Fentanyl 50 mcg IV Versed 1 mg IV Versed 1 mg IV Oxygen: 2 L/min via nasal cannula Baby Aspirin (81mg) 1 Tabs PO @ 08/19/2023 07:40:14 Heparin given IA 08/19/2023 08:24:08 Verapamil 2.5mg, Ntg 100mcgs, 3000 units of Heparin given IA 08/19/2023 08:24:08 SUMMARY OF HEMODYNAMIC DATA Time AIR REST ECG 07:09:09 ECG 08:14:50 AO 99/68 (81) SA 08:40:46 LV 110/6, 14 08:51:37 LV 102/3, 9 08:51:43 LV 109/3, 11 08:52:28 LVp 105/3, 8 08:52:33 AOp 115/65 (87) 08:52:38 AIR REST 09:04:24 Signed By Vinh Yuan MD On 08/19/2023 09:07:52 Vinh Yuan MD
== END 2023-08-19 10:45 | disposition home or self-care (01) ==
LOC: CLSP 06:46
PROVIDERS: PCP Physician Assistant; Referring Provider Internal Medicine Cardiovascular Disease; Visit Provider Internal Medicine Cardiovascular Disease
DX: I25.10 Atherosclerotic heart disease of native coronary artery without angina pectoris (principal); J44.9 Chronic obstructive pulmonary disease, unspecified; Z95.5 Presence of coronary angioplasty implant and graft; I25.2 Old myocardial infarction; I10 Essential (primary) hypertension; E78.5 Hyperlipidemia, unspecified; R53.83 Other fatigue; R06.02 Shortness of breath; R42 Dizziness and giddiness; F17.210 Nicotine dependence, cigarettes, uncomplicated; Z82.49 Family history of ischemic heart disease and other diseases of the circulatory system
CPT/HCPCS: 93458; 99152; 99153; J7040; Q9967; C1769; C1894

== ENCOUNTER → 2024-04-15 | Outpatient (CLI) | payer MEDICARE, SELFPAY ==
[2018-07-10 14:12] VITALS: BMI 24.7
--- NOTE | 2024-04-15 13:51 | CT_ITS ---
STUDY: LOW DOSE CT LUNG CANCER SCREENING REASON FOR EXAM: Male, 73 years old. 40+ pack year history of smoking RADIATION DOSAGE (If Supplied By Facility): CTDIvol = ( 3.02 ) mGy, DLP = ( 111.74 ) mGycm TECHNIQUE: No contrast was administered. Low dose technique was utilized (average mAS-38 and kVp 120). 1.25 mm axial source images with a slice interval of 1.25-mm were reconstructed in lung windows. 2.5 mm axial source images with a slice interval of 2.5-mm were reconstructed in lung windows. 5.0 mm axial source images with a slice interval of 5.0-mm were reconstructed in soft tissue windows. COMPARISON: 02/11/2023 FINDINGS: Lung windows show the lungs to be mildly hyperexpanded. Chronic interstitial changes noted in both lung beatty with chronic bronchitis but no organized infiltrate effusion or suspicious noncalcified mass or nodule. Lung beatty show no significant interval change since the previous study. Limited soft tissue windows show stable positioning of a left subclavian pacemaker. No suspicious adenopathy. Peripheral calcifications noted in the thoracic aorta without aneurysm. There are calcified coronary vessels. Limited cuts through the upper abdomen show a small hiatal hernia. Bony structures show degenerative change CT/Low Dose CT Lung Screening IMPRESSION: Lung-RADS category 2 - Continue annual screening with LDCT in 12 months. IMPORTANT NOTES FOR USE: ACR Lung-RADS Version 1.1 Assessment Categories Release Date: 2018 Category: Coded 0-4 bases on nodule(s) with highest degree of suspicion. Negative screen is defined as categories 1 and 2; a positive screen is defined as categories 3 and 4. Category 3 and 4A nodules that are unchanged on interval CT should be coded as category 2, and individuals returned to screening in 12 months. Category 4X: Category 3 or 4 nodules with additional imaging findings that increase the suspicion of lung cancer, such as spiculation, GGN that doubles in size in 1 year, enlarged lymph notes, etc. Category Modifiers: S (significant finding unrelated to lung cancer) Electronically Signed: John Woodall MD at 10:04 EST ,
== END | disposition home or self-care (01) ==
LOC: CT 13:48
PROVIDERS: PCP Physician Assistant; Referring Provider Nurse Practitioner Acute Care; Visit Provider Nurse Practitioner Acute Care
DX: Z12.2 Encounter for screening for malignant neoplasm of respiratory organs (principal); Z87.891 Personal history of nicotine dependence
CPT/HCPCS: 71271

== ENCOUNTER 2024-06-28 03:18 | Inpatient (IN) | payer MEDICARE, SELFPAY ==
[2018-07-10 14:12] VITALS: BMI 24.7
[2024-06-28] VITALS (22 sets, daily range): BP systolic 123–186; BP diastolic 73–112; PULSE 73–110; RESP 17–34; TEMP 36.5–37.9; O2SAT 69–98; BMI 25.2; BMI 25.0
--- NOTE | 2024-06-28 03:26 | EDS_ITS ---
HPI History of Present Illness Chief Complaint: Shortness of Breath Detail of Chief Complaint: Shortness of breath Informant: patient Narrative Narrative: Patient presents with cough and shortness of breath with her 2 days ago. He has had fever up to 102. brought him in today because his O2 saturation was down into the 70s. He does not wear home O2. He does have history of COPD and does use inhalers. Patient denies chest pain. Cough at times productive of some white phlegm. Patient has history of coronary artery disease. [facility] Medical History Stopped smoking with greater than 40 pack year history Anemia History of steroid therapy Hiatal hernia History of stress test HTN (hypertension) Heart attack Hyperlipidemia Nicotine dependence Essential (primary) hypertension Atherosclerotic heart disease of [place] coronary artery without angina pectoris CAP (community acquired pneumonia) Tobacco dependence in remission Tobacco abuse COPD (chronic obstructive pulmonary disease) Home Medications ?Medication ?Instructions ?Recorded ?Last Taken ?Type nuhldsvk-bxr-vvslf acid 0.4 1 tab PO DAILY 02/11/22 3 Days Ago History mg-lycopene 300 mcg-lutein 250 mcg ~ tablet (Centrum Silver) triamcinolone acetonide 0.1 % 0.1 applic topical BID P RN rash 02/11/22 Unknown History topical cream nitroglycerin 0.4 mg sublingual 0.4 mg sublingual Q5M PRN Angina 10/29/22 Unknown Rx tablet pain #25 tabs fluticasone propionate 50 2 spray intranasal DAILY #16 grams 02/12/23 Unknown Rx mcg/actuation nasal spray,suspension atorvastatin 40 mg tablet 40 mg PO DAILY #90 tabs 08/10 08/02 Unknown Rx losartan 100 mg tablet 100 mg PO DAILY #90 TABLETS 12/08/23 Unknown Rx ipratropium 0.5 mg-albuterol 3 mg 3 ml inhalation Q4H PRN PRN SOB 01/02/24 Unknown Rx (2.5 mg base)/3 mL nebulization &/OR WHEEZING #180 mL soln aspirin 81 mg tablet,delayed 81 mg PO DAILY PRN thin b lood 02/05/24 Unknown History release (Adult Aspirin Regimen) isosorbide mononitrate 30 mg 30 mg PO BID #180 tabs Unknown Rx tablet,extended release 24 hr albuterol sulfate 90 mcg/actuation 2 puff inhalation Q 4H #8.5 grams 03/03/24 Unknown Rx aerosol inhaler (Ventolin HFA) fluticasone fur. 200 mcg-umeclid 1 inh inhalation JESSICA Y #60 ea 03/22/24 Unknown Rx 62.5 mcg-vilant 25 mcg inhalat.powder (Trelegy Ellipta) carvedilol 6.25 mg tablet 12.5 mg PO BID 06/28/24 Unkn own History Allergy/AdvReac Type Severity Reaction Status Date / Time bee venom protein (honey bee) Allergy Anaphylaxis Verified 06/28/24 03:22 clopidogrel (From Plavix) Allergy rash Verified 06/28/24 03:22 lactose AdvReac Other Verified 06/28/24 03:22 lisinopril AdvReac cough Verified 06/28/24 03:22 Family History Mother CVA (cerebral vascular accident) Father Heart disease Surgical History Status post cardiac surgery History of shoulder surgery History of coronary artery stent placement (07/10/18) Social History Smoking Status: Current every day smoker tobacco type: cigarettes second hand exposure: Yes alcohol intake: never substance use type: does not use caffeine: No what type of physical activity do you participate in: running and weight training ROS ROS ED Review of Systems ROS Unobtainable: other Constitutional Constitutional ED: Reports fever(s) and lethargy; Denies chills, sweats or weight loss Eyes Eyes: Denies blurry vision, change in vision or diplopia ENT ENT ED: Denies rhinorrhea or sore throat Cardiovascular Cardiovascular: Denies chest pain, orthopnea or racing heartbeat Respiratory/Chest Respiratory/Chest: Reports cough, dyspnea and dyspnea on exertion; Denies orthopnea or sputum Gastrointestinal Gastrointestinal: Denies abdominal pain, diarrhea, nausea or vomiting Genitourinary Genitourinary ED: Denies dysuria, hematuria or urinary frequency Musculoskeletal Musculoskeletal: Denies arthralgias, back pain, myalgias or neck pain Integumentary Denies abscess, Abrasions or rash Neurologic Neurologic: Denies headache(s) or weakness Psychiatric Psychiatric: Denies anxiety, depression or suicidal thoughts Endocrine Endocrinology: Denies polydipsia, polyphagia or polyuria Hematologic/Lymphatic Hematologic/Lymphatic: Denies easy bleeding, easy bruising or lymphadenopathy Allergic/Immunologic Allergic/Immunologic ED: Denies mouth swelling, tongue swelling or urticaria EXAM Physical Exam Const Vital Signs: 06/28/24 03:18 06/28/24 03:34 06/28/24 03:34 Temperature 99.2 F H Temperature Source Oral Pulse Rate 103 H 98 Respiratory Rate 31 H 17 Respiratory Effort Respiratory Pattern Normal Blood Pressure 161/91 H Blood Pressure Mean 114 Pulse Ox 69 97 Oxygen Delivery Method Nasal Cannula Nasal Cannula Oxygen Flow Rate (L/min) 3 06/28/24 03:35 06/28/24 03:35 06/28/24 03:44 Temperature Temperature Source Pulse Rate 104 H Respiratory Rate 29 H Respiratory Effort Labored Respiratory Pattern Blood Pressure Blood Pressure Mean Pulse Ox Oxygen Delivery Method Nasal Cannula Oxygen Flow Rate (L/min) 3 06/28/24 03:45 06/28/24 04:00 06/28/24 04:15 Temperature Temperature Source Pulse Rate 96 110 H 104 H Respiratory Rate 28 H 34 H 31 H Respiratory Effort Respiratory Pattern Blood Pressure 186/112 H 176/99 H Blood Pressure Mean 136 122 Pulse Ox Oxygen Delivery Method Oxygen Flow Rate (L/min) 06/28/24 04:22 06/28/24 04:30 06/28/24 04:45 Temperature 98.6 F Temperature Source Oral Pulse Rate 92 103 H 107 H Respiratory Rate 31 H 31 H 31 H Respiratory Effort Respiratory Pattern Blood Pressure 176/99 H 175/99 H 166/111 H Blood Pressure Mean 124 122 125 Pulse Ox 95 Oxygen Delivery Method Nasal Cannula Oxygen Flow Rate (L/min) 3 06/28/24 05:00 06/28/24 05:00 06/28/24 05:14 Temperature 100.3 F H 100.3 F H Temperature Source Oral Pulse Rate 103 H 106 H 100 Respiratory Rate 27 H 25 H 29 H Respiratory Effort Respiratory Pattern Blood Pressure 146/94 H 146/94 H 145/94 H Blood Pressure Mean 111 110 111 Pulse Ox 95 95 Oxygen Delivery Method Nasal Cannula Oxygen Flow Rate (L/min) 4 Positive well nourished and well developed General Appearance ED: well developed and NAD HEENT Reports TM's clear and moist mucous membranes normocephalic and atraumatic; Negative for trauma or tenderness Tympanic Membrane ED: Yes TM's clear Eyes PERRL and EOMs intact bilaterally General Eye ED: Negative for pale conjunctiva or scleral icterus Neck no lymphadenopathy, supple and no JVD General: Negative for tenderness Chest Wall inspection of chest normal and palpation of chest normal Chest: Negative for tenderness Resp normal respiratory effort and clear to auscultation bilaterally Effort and Inspection: Negative for respiratory distress or pain with movement Auscultation: wheezes and diminished lung sounds; Negative for rhonchi Cardio regular rate, regular rhythm, S1 normal heart sound, S2 normal heart sound and no murmurs Peripheral Pulses: pulses 2+ throughout GI normal to inspection, nondistended, normoactive bowel sounds, soft to palpation, non-tender, non-distended and no masses Back/Spine no CVA tenderness and no thoracic nor lumbar tenderness Extremity normal to inspection General Extremety ED: Negative for edema General Extremity: Negative for edema Neuro oriented x3, CN's II-XII intact bilaterally, no sensory deficits noted and gait normal Sensorium / Orientation: awake, alert, oriented to person, oriented to place and oriented to time Motor Exam: strength 5/5 throughout and strength abnormal Psych mental status grossly normal Skin no rashes or lesions noted and no wounds MDM MDM MDM Narrative Medical decision making narrative: Patient presents with cough and dyspnea with hypoxemia. In the differential would be pneumonia versus COPD exacerbation. Less likely PE. IV line established. Patient was given DuoNeb aerosol and was started on Solu-Medrol 125 mg IV. EKG obtained on arrival showed a sinus rhythm with rate of 96 bpm with occasional PACs and nonspecific ST changes. 1 view chest x-ray was unremarkable. Lactate was normal. Chemistries unremarkable. Troponin was normal at 10. Case will be discussed with hospitalist evaluate patient for admission. Still pending his COVID flu and RSV testing. Lab Data Attestation: I reviewed the patient's lab results. Labs: Laboratory Results - last 24 hr 06/28/24 03:23 WBC 8.2 RBC 5.05 Hgb 15.4 Hct 46.5 MCV 92.1 MCH 30.5 MCHC 33.1 RDW Std Deviation 49.8 H RDW Coeff of Itz 14.6 Plt Count 120 L MPV 11.6 Immature Gran % (Auto) 0.400 Neut % (Auto) 82.3 H Lymph % (Auto) 5.6 L [place] % (Auto) 11.2 H Eos % (Auto) 0.0 Baso % (Auto) 0.5 Absolute Neuts (auto) 6.7 Absolute Lymphs (auto) 0.46 L Nucleated RBC % 0 Differential Comment SCANNED Sodium 139 Potassium 3.8 Chloride 107 Carbon Dioxide 25.0 Anion Gap 7 BUN 13 Creatinine 1.16 Estim Creat Clear Calc 57.69 Est GFR (MDRD) Af Amer 79 Est GFR (MDRD) Non-Af 65 BUN/Creatinine Ratio 11.2 Glucose 118 H Lactic Acid 1.3 Calcium 8.9 Troponin I High Sens 10 Radiography Diagnostic Testing: Clinical Impression(s) from Imaging Studies Chest X-Ray 06/28/24 03:55 IMPRESSION: COPD changes with no acute cardiopulmonary disease. Reading Location: [facility] 1 view chest x-ray obtained interpreted by myself as hyperinflation without evidence for infiltrate or pneumothorax or acute disease process. Radiology in agreement felt there was COPD changes with no acute cardiopulmonary disease. EKG Initial EKG: Attestation: I personally reviewed and interpreted this EKG as follows: Comments: Sinus rhythm with rate of 96 bpm with PACs and nonspecific ST change Discharge Plan Dx/Rx/DC Orders Clinical Impression: COPD exacerbation, Viral URI, Respiratory failure, Hypoxemia, Influenza A Disposition Disposition: Acute Care [facility]
[2024-06-28] MEDS: MethylPREDNISolone 125 MG/2 ML Vial IV (03:32)
[2024-06-28] MEDS: Albuterol 2.5 MG/3 ML VIAL.NEB. INHALATION (03:34)
[2024-06-28] MEDS: Ipratropium/Albuterol Sulfate 3 ML AMPUL.NEB INHALATION ×4 (03:34→20:13)
[2024-06-28 03:47] LABS: Absolute Lymphocyte Count 0.46 X10^3/uL (0.83-4.51); Absolute Neutrophil Count 6.7 X10^3/uL (2.0-7.7); Basophil# 0.04 X10^3/uL; Basophil% 0.5 % (0-1); Hematocrit 46.5 % (40-54); Hemoglobin 15.4 g/dL (13.0-16.5); Lymphocyte # 0.46 X10^3/ul (0.83-4.51); Lymphocyte % 5.6 % (19-41); Mean Corp Hgb Conc 33.1 g/dL (32-36); Mean Corpuscular Hgb 30.5 pg (27.0-32.0); Mean Corpuscular Volume 92.1 fL (80-94); Mean Platelet Vol. 11.6 fl (6.2-12.0); Monocyte# 0.91 X10^3/uL; Monocyte% 11.2 % (0-10); NRBC Flagged by Analyzer 0 % (0-5); Neutrophil # 6.72 X10^3/uL (2.7-7.7); Neutrophil % 82.3 % (47-70); POSITIVE COUNT YES; POSITIVE DIFFERENTIAL YES; Platelet Count 120 K/mm3 (150-450); RBC Distribution Width CV 14.6 % (11.6-14.6); RBC Distribution Width SD 49.8 fl (35.1-43.9); Red Blood Count 5.05 M/mm3 (4.6-6.2); White Blood Count 8.2 K/mm3 (4.4-11.0)
--- NOTE | 2024-06-28 03:55 | RAD_ITS ---
PROCEDURE: CHEST 1 VIEW (PORTABLE) REASON FOR EXAM: Cough, dyspnea TECHNIQUE: Frontal and lateral views of the chest. COMPARISON: 08/07/2023 FINDINGS: The heart size is normal. Calcifications in the aortic arch. The mediastinal contour is unremarkable. Lungs are hyperinflated. No acute infiltrate. The bones are unremarkable. RAD/Chest 1 View (Portable) IMPRESSION: COPD changes with no acute cardiopulmonary disease. Reading Location: [facility]
[2024-06-28 04:01] LABS: Lactic Acid 1.3 mmol/L (0.4-1.9)
[2024-06-28 04:07] LABS: Anion Gap 7 (5-15); BUN 13 mg/dL (7-18); BUN/Creat Ratio 11.2 RATIO (10-20); Calcium,Total 8.9 mg/dL (8.5-10.1); Chloride 107 mmol/L (98-107); Creatinine, Serum 1.16 mg/dL (0.70-1.30); EST Glomerular Filtration Rate 65 mL/min (>60); Est Glom Filt Rate - Afr Amer 79 mL/min (>60); Estimated Creatinine Clearance 57.69 ml/min; Glucose 118 mg/dL (74-106); Potassium 3.8 mmol/L (3.5-5.1); Sodium Level 139 mmol/L (136-145); Troponin-I HS 10 pg/mL (3.0-78.0)
[2024-06-28 04:12] LABS: Differential Comment SCANNED; Differential Indicated SCAN CRITERIA MET
--- NOTE | 2024-06-28 05:29 | PCM.HP.STD ---
[facility] - General General Date of Admission: 06/28/24 Date of Service: 06/28/24 Chief Complaint: Fever, SOB and Wheezing. [facility] Narrative YARIEL REICH, is a 74 M with a past medical history of essential hypertension; on losartan and carvedilol, hyperlipidemia; on atorvastatin, history of tobacco abuse; with subsequent COPD, history of community-acquired pneumonia, CAD; s/p NC with subsequent mid-RCA stent on baby aspirin daily plus ISMO twice daily, history of anemia, history of hiatal hernia with gastric ulcer, listed allergy to lisinopril (cough) and OA; with history of shoulder surgery who presents to [facility] ER complaining of fever, shortness of breath and wheezing. Mr. Reich reports his symptoms began approximately 2 days prior to admission with a gradual-onset of dyspnea on exertion that progressed to shortness of breath at rest with lethargy. He also admits to fevers up to 102 ?F with cough productive of whitish phlegm and his oxygen saturations dropping into the ~70% range on home pulse-oximeter so they decided to come in for further evaluation and treatment. He admits his symptoms are similar to his previous AE COPD - but more severe. He denies wearing oxygen at home. He also denies associated sweats, visual changes, runny nose, sore throat, chest pain, heart racing, palpitations, abdominal pain, nausea, vomiting, diarrhea, dysuria, hematuria, arthralgias, myalgias or headache. In the ER he was initially diagnosed with AE COPD complicated by viral assay positive for Influenza A with both combining to cause Respiratory Insufficiency and he was then admitted to the general medical floor for ongoing care for a stay that is expected to extend beyond 2 midnights. [facility] Medical History Stopped smoking with greater than 40 pack year history Anemia History of steroid therapy Hiatal hernia History of stress test HTN (hypertension) Heart attack Hyperlipidemia Nicotine dependence Essential (primary) hypertension Atherosclerotic heart disease of [place] coronary artery without angina pectoris CAP (community acquired pneumonia) Tobacco dependence in remission Tobacco abuse COPD (chronic obstructive pulmonary disease) Home Medications ?Medication ?Instructions ?Recorded ?Last Taken ?Type lhpnkvil-pgr-yzzsa acid 0.4 1 tab PO DAILY 02/11/22 3 Days Ago History mg-lycopene 300 mcg-lutein 250 mcg ~09/30/22 tablet (Centrum Silver) triamcinolone acetonide 0.1 % 0.1 applic topical BID PRN rash 02/11/22 Unknown History topical cream nitroglycerin 0.4 mg sublingual 0.4 mg sublingual Q5M PRN Angina 10/29/22 Unknown Rx tablet pain #25 tabs fluticasone propionate 50 2 spray intranasal DAILY #16 grams 02/12/23 Unknown Rx mcg/actuation nasal spray,suspension atorvastatin 40 mg tablet 40 mg PO DAILY #90 tabs 08/23/23 Unknown Rx losartan 100 mg tablet 100 mg PO DAILY #90 TABLETS 12/08/23 Unknown Rx ipratropium 0.5 mg-albuterol 3 mg 3 ml inhalation Q4H PRN PRN SOB 01/02/24 Unknown Rx (2.5 mg base)/3 mL nebulization &/OR WHEEZING #180 mL soln aspirin 81 mg tablet,delayed 81 mg PO DAILY PRN thin blood 02/05/24 Unknown History release (Adult Aspirin Regimen) isosorbide mononitrate 30 mg 30 mg PO BID #180 tabs 02/05/24 Unknown Rx tablet,extended release 24 hr albuterol sulfate 90 mcg/actuation 2 puff inhalation Q4H #8.5 grams 03/03/24 Unknown Rx aerosol inhaler (Ventolin HFA) fluticasone fur. 200 mcg-umeclid 1 inh inhalation DAILY #60 ea 03/22/24 Unknown Rx 62.5 mcg-vilant 25 mcg inhalat.powder (Trelegy Ellipta) carvedilol 6.25 mg tablet 12.5 mg PO BID 06/28/24 Unknown History Allergy/AdvReac Type Severity Reaction Status Date / Time bee venom protein (honey bee) Allergy Anaphylaxis Verified 06/28/24 03:22 clopidogrel (From Plavix) Allergy rash Verified 06/28/24 03:22 lactose AdvReac Other Verified 06/28/24 03:22 lisinopril AdvReac cough Verified 06/28/24 03:22 Family History Mother CVA (cerebral vascular accident) Father Heart disease Surgical History Status post cardiac surgery History of shoulder surgery History of coronary artery stent placement (07/10/18) Social History Smoking Status: Current every day smoker tobacco type: cigarettes second hand exposure: Yes alcohol intake: never substance use type: does not use caffeine: No what type of physical activity do you participate in: running and weight training ROS ROS Narrative Review of Systems: Constitutional patient admits to fever and lethargy but he denies chills or sweats. Eyes: Patient denies changes in vision or discharge from eyes. ENT: Patient denies runny nose, sore throat or ear pain. Resp: Patient admits to dyspnea on exertion that progressed to shortness of breath at rest with cough productive of whitish sputum as per HPI. CV: Patient denies chest pain, palpitations, heart racing or lower extremity edema. GI: Patient denies abdominal pain, nausea, vomiting, diarrhea or constipation. : Patient denies dysuria, hematuria or urinary frequency. MSK: Patient denies arthralgias or myalgias. Skin: Patient denies rash, abscess, wounds or jaundice. Psych: Patient denies symptoms of uncontrolled depression or anxiety. Neuro: Patient denies headache, paresthesias or focal neurologic deficits. Allergy: Patient denies lip swelling, tongue swelling or urticaria. Hematology: Patient denies easy bleeding or easy bruisability. Endocrinology: Patient denies polyuria, polydipsia or polyphagia. 14 point review of systems is otherwise negative except for positives noted above in HPI. Vital Signs Vital Signs Vital Signs: 06/28/24 03:18 06/28/24 03:34 06/28/24 03:34 Temperature 99.2 F H Temperature Source Oral Pulse Rate 103 H 98 Respiratory Rate 31 H 17 Respiratory Effort Respiratory Pattern Normal Blood Pressure 161/91 H Blood Pressure Mean 114 Pulse Ox 69 97 Oxygen Delivery Method Nasal Cannula Nasal Cannula Oxygen Flow Rate (L/min) 3 06/28/24 03:35 06/28/24 03:35 06/28/24 03:44 Temperature Temperature Source Pulse Rate 104 H Respiratory Rate 29 H Respiratory Effort Labored Respiratory Pattern Blood Pressure Blood Pressure Mean Pulse Ox Oxygen Delivery Method Nasal Cannula Oxygen Flow Rate (L/min) 3 06/28/24 03:45 06/28/24 04:00 06/28/24 04:15 Temperature Temperature Source Pulse Rate 96 110 H 104 H Respiratory Rate 28 H 34 H 31 H Respiratory Effort Respiratory Pattern Blood Pressure 186/112 H 176/99 H Blood Pressure Mean 136 122 Pulse Ox Oxygen Delivery Method Oxygen Flow Rate (L/min) 06/28/24 04:22 06/28/24 04:30 06/28/24 04:45 Temperature 98.6 F Temperature Source Oral Pulse Rate 92 103 H 107 H Respiratory Rate 31 H 31 H 31 H Respiratory Effort Respiratory Pattern Blood Pressure 176/99 H 175/99 H 166/111 H Blood Pressure Mean 124 122 125 Pulse Ox 95 Oxygen Delivery Method Nasal Cannula Oxygen Flow Rate (L/min) 3 06/28/24 05:00 06/28/24 05:00 06/28/24 05:14 Temperature 100.3 F H 100.3 F H Temperature Source Oral Pulse Rate 103 H 106 H 100 Respiratory Rate 27 H 25 H 29 H Respiratory Effort Respiratory Pattern Blood Pressure 146/94 H 146/94 H 145/94 H Blood Pressure Mean 111 110 111 Pulse Ox 95 95 Oxygen Delivery Method Nasal Cannula Oxygen Flow Rate (L/min) 4 Weight Weight: 175 lb 14.862 oz Body Mass Index (BMI) 25.2 Physical Exam Const alert, oriented x3, no apparent distress and average body habitus General Appearance: cooperative HEENT normocephalic, head/scalp atraumatic, hearing grossly normal bilaterally and moist oral mucous membranes Eyes PERRL, EOMs intact bilaterally and conjunctivae normal Neck no lymphadenopathy, supple and no JVD Resp Resp Narrative: Diminished breath sounds throughout with scattered wheezing. No signs of respiratory distress or accessory muscle use use noted at this time. Auscultation: wheezes Cardio regular rate and regular rhythm GI normal to inspection, nondistended, normoactive bowel sounds, soft to palpation, non-tender and non-distended Extremity normal to inspection, full ROM and no clubbing, cyanosis or edema Skin Skin Narrative: Patient has no evidence of rash, abscess, wounds or jaundice. Neuro oriented x3, CN's II-XII intact bilaterally, moves all extremities and no focal motor deficits Sensorium / Orientation: awake, alert, oriented to person, oriented to place and oriented to time Speech: speech normal Psych affect normal Results Medical Records Data Attestation: I reviewed the patient's medical records Lab / Micro Data Attestation: I reviewed the patient's lab results. 06/28/24 03:23 06/28/24 03:23 Labs: Laboratory Results - last 24 hr 06/28/24 03:23: WBC 8.2, RBC 5.05, Hgb 15.4, Hct 46.5, MCV 92.1, MCH 30.5, MCHC 33.1, RDW Std Deviation 49.8 H, RDW Coeff of Itz 14.6, Plt Count 120 L, MPV 11.6, Immature Gran % (Auto) 0.400, Neut % (Auto) 82.3 H, Lymph % (Auto) 5.6 L, [place] % (Auto) 11.2 H, Eos % (Auto) 0.0, Baso % (Auto) 0.5, Absolute Neuts (auto) 6.7, Absolute Lymphs (auto) 0.46 L, Nucleated RBC % 0, Differential Comment SCANNED, Sodium 139, Potassium 3.8, Chloride 107, Carbon Dioxide 25.0, Anion Gap 7, BUN 13, Creatinine 1.16, Estim Creat Clear Calc 57.69, Est GFR (MDRD) Af Amer 79, Est GFR (MDRD) Non-Af 65, BUN/Creatinine Ratio 11.2, Glucose 118 H, Lactic Acid 1.3, Calcium 8.9, Troponin I High Sens 10 Imaging Radiology Impression Chest X-Ray 06/28/24 03:55 IMPRESSION: COPD changes with no acute cardiopulmonary disease. Reading Location: [facility] Assessment & Plan Assessment/Plan (1) COPD exacerbation: (2) Influenza A: (3) Respiratory insufficiency: (4) Essential (primary) hypertension: (5) Hyperlipidemia: QUALIFIERS: Hyperlipidemia type: pure hypercholesterolemia Qualified Code(s): E78.00 - Pure hypercholesterolemia, unspecified (6) History of coronary artery stent placement: (7) Atherosclerotic heart disease of [place] coronary artery without angina pectoris: QUALIFIERS: [place] vs. transplanted heart: [place] heart Qualified Code(s): I25.10 - Atherosclerotic heart disease of [place] coronary artery without angina pectoris PLAN: Plan 1. AE COPD - Admit to general medical floor under contact and droplet precautions. Continue IV Solu-Medrol and add IV doxycycline plus famotidine twice daily for GI prophylaxis while on steroids. Resume scheduled and as needed nebulizers/inhalers. Start scheduled guaifenesin 600 mg p.o. twice daily. Give probiotic to replace normal jhonny. Give acetaminophen as needed for [id number] (level 1-5/10) pain or fever. Give morphine IV as needed for severe (level 6-10/10) pain. 2. Influenza A noted on viral screen likely precipitating #1 - Start Tamiflu BID x 5 days in an effort to shorten course of illness. Start vitamin D3, vitamin C and zinc to help boost immunity and hopefully speed recovery. 3. Respiratory insufficiency due to #1 & #2 - Wean supplemental oxygen as tolerated. Check VBG to establish baseline this admission. 4. Essential Hypertension; on losartan and carvedilol - Continue home regimen plus give hydralazine IV prn for systolic blood pressure > 160 mmHg. 5. Hyperlipidemia; on atorvastatin - Resume atorvastatin as previous. 6. CAD; s/p NC with mid-RCA stent (2019) on baby aspirin daily - Maintain daily BASA. 7. History of anemia - Stable with hemoglobin of 15.4 g/dL and MCV of 92.1 fL present on admission. 8. History of hiatal hernia with gastric ulcer - Noted with patient started on famotidine for #1 to decrease chances of recurrence. 9. History of community-acquired pneumonia - Noted with chest x-ray this admission showing no acute pathologic changes only chronic COPD changes. 10. OA; with history of shoulder surgery - Give acetaminophen as needed per pain scale noted above. 11. Listed allergy to lisinopril (cough) - We we will avoid KAE inhibitors. 12. Listed allergy to clopidogrel (rash) - We we will avoid this agent. 13. DVT prophylaxis - Lovenox 40 mg sq daily plus SCD's. Total time: Approximately (but not less than) 55 minutes. Charges/Coding Visit Charges Inpatient E&M: 49529 Init Hosp L2
[2024-06-28] MEDS: Oseltamivir Phosphate 75 MG Capsule PO (05:53)
[2024-06-28 06:06] LABS: Magnesium 2.1 mg/dL (1.6-2.6); Thyroid Stim Hormone (TSH) 0.193 uIU/mL (0.358-3.740)
[2024-06-28] MEDS: 0.9% Normal Saline (1000mL) 1,000 ML 70 ML IV (06:22)
[2024-06-28] MEDS: Doxycycline 100 MG in 0.9% Normal Saline (250mL Bag) 250 ML 250 MG IV ×2 (06:33→22:27)
[2024-06-28] MEDS: Famotidine 20 MG Tablet PO ×2 (06:34→22:26)
[2024-06-28] MEDS: Isosorbide Mononitrate 30 MG Tablet PO ×2 (06:39→16:45)
[2024-06-28] MEDS: Losartan Potassium 100 MG Tablet PO (06:39)
[2024-06-28] MEDS: Carvedilol 12.5 MG Tablet PO ×2 (06:39→16:45)
[2024-06-28] MEDS: Acetaminophen 325 MG Tablet 650 MG PO (06:41)
[2024-06-28 07:33] LABS: Blood Gas Specimen Type VEN; O2 Delivery Device Cannula; SITE Not entered; VBG BASE EXCESS 0 mmol/L (-1.0-3.5); VBG Bicarbonate 27 mmol/L (22-26); VBG PO2 148 mmHg (25-40); VBG SO2 99 % (50-70); VBG TCO2 29 mmol/L (23-33); VBG pH 7.27 (7.32-7.42)
[2024-06-28 07:58] LABS: Free T3 1.8 pg/mL (2.18-3.98); T4 Free Direct 1.03 ng/dL (0.76-1.46)
[2024-06-28] MEDS: Zinc Sulfate 50 mg zinc (220 mg) ORAL capsule PO (09:03)
[2024-06-28] MEDS: guaiFENesin 600 MG Tablet PO (09:03)
[2024-06-28] MEDS: Cholecalciferol (Vit D3) 125 MCG CAPSULE (5,000 UNITS) PO (09:03)
[2024-06-28] MEDS: Ascorbic Acid 500 MG Tablet 1000 MG PO ×2 (09:03→16:45)
[2024-06-28] MEDS: Lactobacillis Acidophilus 1 CAP PO ×4 (09:04→22:25)
[2024-06-28] MEDS: MethylPREDNISolone 125 MG/2 ML Vial 60 MG IV ×2 (09:04→22:27)
[2024-06-28] MEDS: Fluticasone 0.05% 1 SPRAY NASAL.SRY 2 SPRAY NASAL (09:05)
[2024-06-28] MEDS: Multivitamins,Ther W-Minerals Tablet 1 TABLET PO (09:11)
--- NOTE | 2024-06-28 10:18 | CASEMGMT ---
NIKITA BACA Assessment: Face to Face with pt for initial transition planning/care coordination assessment. NIKITA BACA introduced self and role at [facility], pt voices understanding and consents to assessment. Pt is A&O x4 and answers all questions appropriately at this time. Pt sitting up in bed in no distress. Care providers, pharmacy, and demographics verified/updated. Strata: 2 Admitting Dx: AE COPD ACUTE RESP INSUFFICIENCY & FEVER PCP: Kris Specialists: NARGIS [facility]: yes LNOK: , Elisa Living Arrangements: Pt lives with in a 1 level home with 2 steps to enter. ADLs:Pt I with ADLs and IADLs. Transportation: Pt drives self and denies concerns with transportation. DME: walker, cane, shower bench. HHC/SNF: Denies Hx of Pt states no concerns with going home at time of dc. NIKITA BACA discussed possible O2 needs at time of DC, provided list of local DME providers. Pt chose [facility] as provider of choice. Pt states no further concerns/needs. CM to follow. Advised pt to ask CM if any further question/concerns/needs arise, voices understanding. Pt Goal: Home Plan: Home, follow for O2 needs. Junito SHELTON CM
--- NOTE | 2024-06-28 10:55 | PN.HOSP_ITS ---
Reason for Visit Reason for Visit: Diagnoses Pure hypercholesterolemia, unspecified (06/28/24) Essential (primary) hypertension (06/28/24) Atherosclerotic heart disease of [place] coronary artery without angina pectoris (06/28/24) Influenza due to other identified influenza virus with other respiratory manifestations (06/28/24) Chronic obstructive pulmonary disease with (acute) exacerbation (06/28/24) Other abnormalities of breathing (06/28/24) Presence of coronary angioplasty implant and graft (06/28/24) Objective Data Objective Data Vital Signs: Vital Signs Temp Pulse Resp BP Pulse Ox O2 Del Method O2 Flow Rate 98.5 F 83 20 H 123/73 H 97 Nasal Cannula 4 06/28/24 08:46 06/28/24 08:46 06/28/24 08:46 06/28/24 08:46 06/28/24 08:46 06/28/24 08:52 06/28/24 08:52 Oxygen Flow Rate (L/min) 4 Oxygen Delivery Method Nasal Cannula Weight: 174 lb 2.643 oz Body Mass Index (BMI) 25.0 Intake & Output: Intake and Output for Last 24 Hours 06/26/24 06/27/24 06/28/24 23:59 23:59 23:59 Intake Total 260 / 260 Balance 260 / 260 Lab / Micro Data 06/28/24 03:23 06/28/24 03:23 Labs: Laboratory Results - last 24 hr 06/28/24 03:23: WBC 8.2, RBC 5.05, Hgb 15.4, Hct 46.5, MCV 92.1, MCH 30.5, MCHC 33.1, RDW Std Deviation 49.8 H, RDW Coeff of Itz 14.6, Plt Count 120 L, MPV 11.6, Immature Gran % (Auto) 0.400, Neut % (Auto) 82.3 H, Lymph % (Auto) 5.6 L, [place] % (Auto) 11.2 H, Eos % (Auto) 0.0, Baso % (Auto) 0.5, Absolute Neuts (auto) 6.7, Absolute Lymphs (auto) 0.46 L, Nucleated RBC % 0, Differential Comment SCANNED, Sodium 139, Potassium 3.8, Chloride 107, Carbon Dioxide 25.0, Anion Gap 7, BUN 13, Creatinine 1.16, Estim Creat Clear Calc 57.69, Est GFR (MDRD) Af Amer 79, Est GFR (MDRD) Non-Af 65, BUN/Creatinine Ratio 11.2, Glucose 118 H, Lactic Acid 1.3, Calcium 8.9, Magnesium 2.1, Troponin I High Sens 10, TSH 0.193 L, Free T4 1.03, Free T3 pg/dL 1.8 L Micro: Microbiology 06/28/24 03:37 Mucosa - Nose SARS-CoV-2, Influenza & RSV (PCR) - Final Influenzae A ABG Data ABG results: ABG 06/28/24 07:29 Specimen Type TARYN Sample Site Not entered O2 % 5.0 VBG pH 7.27 L VBG pO2 148 H VBG HCO3 27 H VBG Total CO2 29 VBG O2 Sat (Calc) 99 H VBG Base Excess 0 POC Mix VBG pCO2 Pt Tmp 60.0 H O2 Delivery Device Cannula Radiography Diagnostic Testing: Radiology Impression Chest X-Ray 06/28/24 03:55 IMPRESSION: COPD changes with no acute cardiopulmonary disease. Reading Location: [facility] Physical Exam Narrative Seen and examined. Patient admitted with shortness of breath, COPD exacerbation from influenza A. Physical exam General: Alert, Oriented x3, Cooperative HEENT: Atraumatic, PERRLA, EOMI, Normocephalic Oral: No Gingival or Mucosal Lesions/ Ulcerations Neck: Supple, No JVD, Negative Carotid Bruits Chest wall/Lungs: Air entry diminished in bilateral lung bases. Bilateral expiratory rhonchi. Cardiovascular: Regular rate, Regular Rhythm, Normal S1, Normal S2, No M/G/R Abdomen: Bowel Sounds Present, Soft, Non Tender, Non-Distended : No dysuria. No renal angle tenderness. No suprapubic tenderness. Extremities: No edema, Capillary Refill Less than 3 Seconds Skin: No rashes, No breakdown Musculoskeletal: No Tenderness to Palpation of Joints or Extremities Neurological: Cranial nerves II-XII grossly intact, DTR 2+/4. No acute focal neurological deficit. Psych/Mental Status: Flat affect. Assessment & Plan Assessment/Plan (1) COPD exacerbation: (2) Influenza A: (3) Respiratory insufficiency: (4) Essential (primary) hypertension: (5) Hyperlipidemia: QUALIFIERS: Hyperlipidemia type: pure hypercholesterolemia Q ualified Code(s): E78.00 - Pure hypercholesterolemia, unspecified (6) History of coronary artery stent placement: (7) Atherosclerotic heart disease of [place] coronary artery without angina pectoris: QUALIFIERS: [place] vs. transplanted heart: [place] heart Qualified Code(s): I25.10 - Atherosclerotic heart disease of [place] coronary artery without angina pectoris PLAN: Plan 1. Acute exacerbation of COPD from influenza A bronchitis: Patient is being admitted to the floor. Patient is being managed on scheduled bronchodilator, IV Solu-Medrol, Mucinex, incentive spirometry and Pep. On IV doxycycline. Tamiflu started. On scheduled guaifenesin. 2.. Essential Hypertension; on losartan and carvedilol - Continue home regimen plus give hydralazine IV prn for systolic blood pressure > 160 mmHg. 3. Hyperlipidemia; on atorvastatin - Resume atorvastatin as previous. 4. CAD; s/p [place] with mid-RCA stent (2019) on baby aspirin daily - Maintain daily BASA. 5. Chronic hiatus hernia and history of gastric ulcer: On famotidine 6. Chronic primary OA; with history of shoulder surgery - Give acetaminophen as needed per pain scale noted above. 7. DVT prophylaxis - Lovenox 40 mg sq daily plus SCD's.
[2024-06-28] MEDS: Oseltamivir Phosphate 30 MG Capsule PO (22:25)
[2024-06-28] MEDS: Atorvastatin Calcium 40 MG Tablet PO (22:26)
[2024-06-28] MEDS: 0.9% Saline Lock 10 ML Syringe IV (22:27)
[2024-06-28] MEDS: guaiFENesin/D-Methorphan TAB.SR.12H 2 TABLET PO (23:05)
[2024-06-29] VITALS (8 sets, daily range): BP systolic 122–172; BP diastolic 74–88; PULSE 75–92; RESP 16–22; TEMP 36.5–36.8; O2SAT 92–98
[2024-06-29] MEDS: 0.9% Saline Lock 10 ML Syringe IV ×4 (04:50→21:22)
[2024-06-29 06:39] LABS: Absolute Lymphocyte Count 0.55 X10^3/uL (0.83-4.51); Absolute Neutrophil Count 11.8 X10^3/uL (2.0-7.7); Basophil# 0.01 X10^3/uL; Basophil% 0.1 % (0-1); Hemoglobin 15.2 g/dL (13.0-16.5); Lymphocyte # 0.55 X10^3/ul (0.83-4.51); Lymphocyte % 4.1 % (19-41); Mean Corpuscular Hgb 30.8 pg (27.0-32.0); Mean Corpuscular Volume 93.3 fL (80-94); Mean Platelet Vol. 12.3 fl (6.2-12.0); Monocyte# 0.91 X10^3/uL; Monocyte% 6.8 % (0-10); NRBC Flagged by Analyzer 0 % (0-5); Neutrophil # 11.83 X10^3/uL (2.7-7.7); Neutrophil % 88.5 % (47-70); POSITIVE DIFFERENTIAL YES; Platelet Count 106 K/mm3 (150-450); RBC Distribution Width CV 14.5 % (11.6-14.6); RBC Distribution Width SD 49.5 fl (35.1-43.9); Red Blood Count 4.93 M/mm3 (4.6-6.2); White Blood Count 13.4 K/mm3 (4.4-11.0)
[2024-06-29] MEDS: Ipratropium/Albuterol Sulfate 3 ML AMPUL.NEB INHALATION ×3 (07:41→19:28)
[2024-06-29] MEDS: Carvedilol 12.5 MG Tablet PO ×2 (08:18→17:19)
[2024-06-29] MEDS: Ascorbic Acid 500 MG Tablet 1000 MG PO ×2 (08:19→17:19)
[2024-06-29] MEDS: Isosorbide Mononitrate 30 MG Tablet PO ×2 (08:19→17:19)
[2024-06-29] MEDS: Multivitamins,Ther W-Minerals Tablet 1 TABLET PO (08:19)
[2024-06-29] MEDS: Cholecalciferol (Vit D3) 125 MCG CAPSULE (5,000 UNITS) PO (08:19)
[2024-06-29] MEDS: Losartan Potassium 100 MG Tablet PO (08:19)
[2024-06-29 08:39] LABS: ALB/GLOB Ratio 0.9 RATIO (0.9-2.4); AST(SGOT) 43 U/L (15-37); Alanine Aminotransfer ALT/SGPT 29 U/L (16-61); Albumin, Serum 2.9 g/dL (3.2-5.0); Alkaline Phosphatase 77 U/L (45-117); Anion Gap 4 (5-15); BUN 17 mg/dL (7-18); BUN/Creat Ratio 20.7 RATIO (10-20); Calcium,Total 8.8 mg/dL (8.5-10.1); Chloride 108 mmol/L (98-107); Creatinine, Serum 0.82 mg/dL (0.70-1.30); EST Glomerular Filtration Rate 98 mL/min (>60); Est Glom Filt Rate - Afr Amer 118 mL/min (>60); Estimated Creatinine Clearance 81.61 ml/min; Globulin 3.3 g/dL (2.2-4.2); Glucose 129 mg/dL (74-106); Potassium 4.5 mmol/L (3.5-5.1); Protein, Total 6.2 g/dL (6.4-8.2); Sodium Level 140 mmol/L (136-145)
[2024-06-29] MEDS: Doxycycline 100 MG in 0.9% Normal Saline (250mL Bag) 250 ML 250 MG IV (09:29)
[2024-06-29] MEDS: 0.9% Normal Saline (100mL Bag) 100 ML 15 ML IV (09:29)
[2024-06-29] MEDS: guaiFENesin/D-Methorphan TAB.SR.12H 2 TABLET PO ×2 (09:42→21:20)
[2024-06-29] MEDS: Famotidine 20 MG Tablet PO ×2 (09:42→21:30)
[2024-06-29] MEDS: Lactobacillis Acidophilus 1 CAP PO ×4 (09:42→21:21)
[2024-06-29] MEDS: Oseltamivir Phosphate 30 MG Capsule PO ×2 (09:44→21:21)
[2024-06-29] MEDS: MethylPREDNISolone 125 MG/2 ML Vial 60 MG IV ×2 (10:50→21:22)
--- NOTE | 2024-06-29 16:50 | PN.HOSP_ITS ---
Reason for Visit Reason for Visit: Diagnoses Pure hypercholesterolemia, unspecified (06/28/24) Essential (primary) hypertension (06/28/24) Atherosclerotic heart disease of [place] coronary artery without angina pectoris (06/28/24) Influenza due to other identified influenza virus with other respiratory manifestations (06/28/24) Chronic obstructive pulmonary disease with (acute) exacerbation (06/28/24) Other abnormalities of breathing (06/28/24) Presence of coronary angioplasty implant and graft (06/28/24) Objective Data Objective Data Vital Signs: Vital Signs Temp Pulse Resp BP Pulse Ox O2 Del Method O2 Flow Rate 98.1 F 81 18 122/87 H 94 Nasal Cannula 4 06/29/24 10:55 06/29/24 12:53 06/29/24 12:53 06/29/24 10:55 06/29/24 10:55 06/29/24 10:55 06/29/24 10:55 Oxygen Flow Rate (L/min) 4 Oxygen Delivery Method Nasal Cannula Weight: 174 lb 2.643 oz Body Mass Index (BMI) 25.0 Intake & Output: Intake and Output for Last 24 Hours 06/27/24 06/28/24 06/29/24 23:59 23:59 23:59 Intake Total 1720 / 1720 2009 Balance 1720 / 1720 2009 Lab / Micro Data 06/29/24 05:42 06/29/24 05:42 Labs: Laboratory Results - last 24 hr 06/29/24 05:42: WBC 13.4 H, RBC 4.93, Hgb 15.2, Hct 46.0, MCV 93.3, MCH 30.8, MCHC 33.0, RDW Std Deviation 49.5 H, RDW Coeff of Itz 14.5, Plt Count 106 L, MPV 12.3 H, Immature Gran % (Auto) 0.500, Neut % (Auto) 88.5 H, Lymph % (Auto) 4.1 L , [place] % (Auto) 6.8, Eos % (Auto) 0.0, Baso % (Auto) 0.1, Absolute Neuts (auto) 11.8 H, Absolute Lymphs (auto) 0.55 L, Nucleated RBC % 0, Sodium 140, Potassium 4.5, Chloride 108 H, Carbon Dioxide 28.0, Anion Gap 4 L, BUN 17, Creatinine 0.82, Estim Creat Clear Calc 81.61, Est GFR (MDRD) Af Amer 118, Est GFR (MDRD) Non-Af 98, BUN/Creatinine Ratio 20.7 H, Glucose 129 H, Calcium 8.8, Phosphorus 4.0, Total Bilirubin 0.40, AST 43 H, ALT 29, Alkaline Phosphatase 77, Total Protein 6.2 L, Albumin 2.9 L, Globulin 3.3, Albumin/Globulin Ratio 0.9 Micro: Microbiology 06/28/24 03:37 Mucosa - Nose SARS-CoV-2, Influenza & RSV (PCR) - Final Influenzae A Physical Exam Narrative Seen and examined. Patient admitted with shortness of breath, COPD exacerbation from influenza A. Patient is still short of breath, wheezing although better than yesterday Physical exam General: Alert, Oriented x3, Cooperative HEENT: Atraumatic, PERRLA, EOMI, Normocephalic Oral: No Gingival or Mucosal Lesions/ Ulcerations Neck: Supple, No JVD, Negative Carotid Bruits Chest wall/Lungs: Air entry diminished in bilateral lung bases. Bilateral expiratory rhonchi. Respiratory rate 18/min Cardiovascular: Regular rate, Regular Rhythm, Normal S1, Normal S2, No M/G/R Abdomen: Bowel Sounds Present, Soft, Non Tender, Non-Distended : No dysuria. No renal angle tenderness. No suprapubic tenderness. Extremities: No edema, Capillary Refill Less than 3 Seconds Skin: No rashes, No breakdown Musculoskeletal: No Tenderness to Palpation of Joints or Extremities Neurological: Cranial nerves II-XII grossly intact, DTR 2+/4. No acute focal neurological deficit. Psych/Mental Status: Flat affect. Assessment & Plan Assessment/Plan (1) COPD exacerbation: (2) Influenza A: (3) Respiratory insufficiency: (4) Essential (primary) hypertension: (5) Hyperlipidemia: QUALIFIERS: Hyperlipidemia type: pure hypercholesterolemia Q ualified Code(s): E78.00 - Pure hypercholesterolemia, unspecified (6) History of coronary artery stent placement: (7) Atherosclerotic heart disease of [place] coronary artery without angina pectoris: QUALIFIERS: [place] vs. transplanted heart: [place] heart Qualified Code(s): I25.10 - Atherosclerotic heart disease of [place] coronary artery without angina pectoris PLAN: Plan 1. Acute exacerbation of COPD from influenza A bronchitis: Patient is being admitted to the floor. Patient is being managed on scheduled bronchodilator, IV Solu-Medrol, Mucinex, incentive spirometry and Pep. On IV doxycycline. Tamiflu started. On scheduled guaifenesin. 06/29: Subjectively patient feeling better but needs 1 more day of bronchodilation and Solu-Medrol. Continue without treatment. Doxycycline IV changed to oral 2.. Essential Hypertension; on losartan and carvedilol - Continue home regimen plus give hydralazine IV prn for systolic blood pressure > 160 mmHg. 3. Hyperlipidemia; on atorvastatin - Resume atorvastatin as previous. 4. CAD; s/p [place] with mid-RCA stent (2018) on baby aspirin daily - Maintain daily BASA. 5. Chronic hiatus hernia and history of gastric ulcer: On famotidine 6. Chronic primary OA; with history of shoulder surgery - Give acetaminophen as needed per pain scale noted above. 7. DVT prophylaxis - Lovenox 40 mg sq daily plus SCD's. Charges/Coding Visit Charges Inpatient E&M: 74225 Subs Hosp L2
[2024-06-29] MEDS: Doxycycline 100 MG CAPSULE PO (21:20)
[2024-06-29] MEDS: Atorvastatin Calcium 40 MG Tablet PO (21:21)
[2024-06-30] VITALS (7 sets, daily range): BP systolic 135–154; BP diastolic 76–97; PULSE 61–91; RESP 16–18; TEMP 36.4–36.6; O2SAT 84–97; BMI 24.6
[2024-06-30] MEDS: Albuterol 2.5 MG/3 ML VIAL.NEB. INHALATION (04:28)
[2024-06-30] MEDS: Ipratropium/Albuterol Sulfate 3 ML AMPUL.NEB INHALATION (06:45)
[2024-06-30] MEDS: MethylPREDNISolone 125 MG/2 ML Vial 60 MG IV (08:18)
[2024-06-30] MEDS: 0.9% Saline Lock 10 ML Syringe IV (08:18)
[2024-06-30] MEDS: Lactobacillis Acidophilus 1 CAP PO (08:21)
[2024-06-30] MEDS: Doxycycline 100 MG CAPSULE PO (08:22)
[2024-06-30] MEDS: Losartan Potassium 100 MG Tablet PO (08:23)
[2024-06-30] MEDS: Isosorbide Mononitrate 30 MG Tablet PO (08:23)
[2024-06-30] MEDS: Carvedilol 12.5 MG Tablet PO (08:23)
[2024-06-30] MEDS: Famotidine 20 MG Tablet PO (08:23)
[2024-06-30] MEDS: guaiFENesin/D-Methorphan TAB.SR.12H 2 TABLET PO (08:23)
[2024-06-30] MEDS: Oseltamivir Phosphate 30 MG Capsule PO (08:24)
--- NOTE | 2024-06-30 11:16 | DCINST_ITS ---
Discharge Instructions Diet Discharge Diet: No restrictions DC O2, CPAP, BIPAP needs Home O2 Discharge instructions: No Dressing / Incision Discharge Activity: Return to Normal Activity Weight Bearing Status: Weight bearing as tolerated Dressing / Incision Call your doctor if you observe: Fever of 101 or Higher, Coldness, Increased Pain, Numbness or Tingling, Change in Color, Inability to urinate, Inability to have a bowel movement, Shortness of breath, Dizziness, Fainting spells, Swelling in the ankles, Chest pain, Prolonged hiccupping, Increased palpitations (irregular heartbeat) and Calf discomfort Follow Up Care When: IN 2 WEEKS Test Results: Test results from this visit will be discussed in further detail at your follow- up appointment, if applicable. Discharge Plan Admission Admit Date/Time: 06/28/24 05:29 Attending Provider: Aron Rich Primary Care Provider: Silverio Ponce Consulting Providers: Barrie Hameed Instructions Additional Instructions / Restrictions: Follow-up with [facility] software integration developer Dr. Rose Ryan Discharge Orders/Prescriptions Prescriptions: New doxycycline monohydrate 100 mg Capsule 100 mg PO BID 5 Days Qty: 10 0RF dextromethorphan-guaifenesin 60-1,200 mg tablet extended release 12 hr 1 tab PO BID 7 Days Qty: 14 0RF oseltamivir 75 mg capsule 75 mg PO BID 3 Days Qty: 6 0RF prednisone 20 mg tablet 40 mg PO DAILY 5 Days Qty: 10 0RF Continued fluticasone propionate 50 mcg/actuation spray,suspension 2 spray intranasal DAILY Qty: 16 3RF nitroglycerin 0.4 mg tablet, sublingual 0.4 mg Sublingual Q5M PRN (Reason: Angina pain) Qty: 25 3RF aspirin [Adult Aspirin Regimen] 81 mg tablet,delayed release (DR/EC) 81 mg PO DAILY PRN (Reason: thin blood) isosorbide mononitrate 30 mg tablet extended release 24 hr 30 mg PO BID Qty: 180 3RF Trelegy Ellipta 200-62.5-25 mcg blister with device 1 inh inhalation DAILY Qty: 60 11RF triamcinolone acetonide 0.1 % cream 0.1 applic TOPICAL BID PRN (Reason: rash) Patient Comments: Apply 1 application to affected area twice daily. Centrum Silver 0.4 mg-300 mcg- 250 mcg Tablet 1 tab PO DAILY carvedilol 6.25 mg tablet 12.5 mg PO BID atorvastatin 40 mg tablet 40 mg PO DAILY Qty: 90 3RF losartan 100 mg tablet 100 mg PO DAILY Qty: 90 3RF ipratropium-albuterol 0.5 mg-3 mg(2.5 mg base)/3 mL solution for nebulization 3 ml inhalation Q4H PRN PRN (Reason: SOB &/OR WHEEZING) Qty: 180 11RF albuterol sulfate [Ventolin HFA] 90 mcg/actuation HFA aerosol inhaler 2 puff INHALATION Q4H Qty: 8.5 5RF Referrals / Follow Up: Silverio Ponce, PA [Primary Care Provider] - In 1 Week Disposition Disposition (needs filled in before D/C Order can be placed): Home, Self Care
--- NOTE | 2024-06-30 11:24 | DS.PCM_ITS ---
Providers Date of Admission: 06/28/24 Date of Discharge: 06/30/24 Primary Care Physician: MACR Iglesias Reason For Visit: AE COPD ACUTE RESPIRATORY INSUFFICIENCY & FEVER Diagnosis Discharge Diagnosis (1) COPD exacerbation: Status: Chronic Code(s): J44.1 - Chronic obstructive pulmonary disease with (acute) exacerbation (2) Influenza A: Status: Acute Code(s): J10.1 - Influenza due to other identified influenza virus with other respiratory manifestations (3) Respiratory insufficiency: Status: Acute Code(s): R06.89 - Other abnormalities of breathing (4) Essential (primary) hypertension: Status: Chronic Code(s): I10 - Essential (primary) hypertension (5) Hyperlipidemia: Status: Chronic Code(s): E78.5 - Hyperlipidemia, unspecified Qualifiers: Hyperlipidemia type: pure hypercholesterolemia Qualified Code(s): E 78.00 - Pure hypercholesterolemia, unspecified (6) History of coronary artery stent placement: Status: Resolved Code(s): Z95.5 - Presence of coronary angioplasty implant and graft (7) Atherosclerotic heart disease of [place] coronary artery without angina pectoris: Status: Chronic Code(s): I25.10 - Atherosclerotic heart disease of [place] coronary artery without angina pectoris Qualifiers: [place] vs. transplanted heart: [place] heart Qualified Code(s): I25.10 - Atherosclerotic heart disease of [place] coronary artery without angina pectoris Plan 1. Acute exacerbation of COPD from influenza A bronchitis: Patient is being admitted to the floor. Patient is being managed on scheduled bronchodilator, IV Solu-Medrol, Mucinex, incentive spirometry and Pep. On IV doxycycline. Tamiflu started. On scheduled guaifenesin. 06/29: Subjectively patient feeling better but needs 1 more day of bronchodilation and Solu-Medrol. Continue without treatment. Doxycycline IV changed to oral 06/30: Patient feels good. Ready to go home. Advised quitting his smoking. He states he goes without a smoking for few weeks and then he starts smoking 1 to 2 cigarettes/day again. He follows with [facility] control room tender Dr. Rose Ryan and has appointment in about 2 months. Follow-up PCP in 1 week. Prescription given for burst prednisone therapy, Mucinex DM, Tamiflu and doxycycline. Continue incentive spirometry and PEP for 1 week. I have reviewed the oxygen testing, and this patient qualifies for the home equipment and portability. The patient is mobile in the home and the community. 2.. Essential Hypertension; on losartan and carvedilol - Continue home regimen plus give hydralazine IV prn for systolic blood pressure > 160 mmHg. 3. Hyperlipidemia; on atorvastatin - Resume atorvastatin as previous. 4. CAD; s/p [place] with mid-RCA stent (2019) on baby aspirin daily - Maintain daily BASA. 5. Chronic hiatus hernia and history of gastric ulcer: On famotidine 6. Chronic primary OA; with history of shoulder surgery - Give acetaminophen as needed per pain scale noted above. 7. DVT prophylaxis - Lovenox 40 mg sq daily plus SCD's. Discharge medication reconciliation done. Discharge follow-up instructions completed. Discharge process discussed with the patient and all questions were answered to patient's satisfaction. Follow with PCP in 1 to 2 weeks Total time spent, exact 35 minutes on discharge meds reconciliation, examination, coordination of care with nurses and ancillary staff, review of imaging and blood test and discussion with the patient on follow-up instructions. Medications at Discharge Home Medications [id number]-itgay acid 0.4 mg-lycopene 300 mcg-lutein 250 mcg tablet (Centrum Silver) 1 tab PO DAILY supplement 02/11/22 triamcinolone acetonide 0.1 % topical cream 0.1 applic topical BID PRN rash 02/11/22 nitroglycerin 0.4 mg sublingual tablet 0.4 mg sublingual Q5M PRN Angina pain #25 tabs 10/29/22 fluticasone propionate 50 mcg/actuation nasal spray,suspension 2 spray intranasal DAILY copd #16 grams 02/12/23 atorvastatin 40 mg tablet 40 mg PO DAILY hld #90 tabs 08/23/23 losartan 100 mg tablet 100 mg PO DAILY bp #90 TABLETS 12/08/23 ipratropium 0.5 mg-albuterol 3 mg (2.5 mg base)/3 mL nebulization soln 3 ml inhalation Q4H PRN PRN SOB &/OR WHEEZING #180 mL 01/02/24 aspirin 81 mg tablet,delayed release (Adult Aspirin Regimen) 81 mg PO DAILY PRN thin blood 02/05/24 isosorbide mononitrate 30 mg tablet,extended release 24 hr 30 mg PO BID heart #180 tabs 02/05/24 albuterol sulfate 90 mcg/actuation aerosol inhaler (Ventolin HFA) 2 puff inhalation Q4H #8.5 grams 03/03/24 fluticasone fur. 200 mcg-umeclid 62.5 mcg-vilant 25 mcg inhalat.powder (Trelegy Ellipta) 1 inh inhalation DAILY copd #60 ea 03/22/24 carvedilol 6.25 mg tablet 12.5 mg PO BID heart 06/28/24 dextromethorphan-guaifenesin ER 60 mg-1,200 mg tab,extend release,12hr 1 tab PO BID 7 days #14 tabs 06/30/24 doxycycline monohydrate 100 mg capsule 100 mg PO BID 5 days #10 caps 06/30/24 oseltamivir 75 mg capsule 75 mg PO BID 3 days #6 caps 06/30/24 prednisone 20 mg tablet 40 mg (2 x 20 mg) PO DAILY 5 days #10 tabs 06/30/24 Physical Exam Narrative Seen and examined. Shortness of breath is much improved. Patient admitted with shortness of breath, COPD exacerbation from influenza A. Physical exam General: Alert, Oriented x3, Cooperative HEENT: Atraumatic, PERRLA, EOMI, Normocephalic Oral: No Gingival or Mucosal Lesions/ Ulcerations Neck: Supple, No JVD, Negative Carotid Bruits Chest wall/Lungs: Air entry diminished in bilateral lung bases. Bilateral expiratory wheezing and rhonchi have resolved. Cardiovascular: Regular rate, Regular Rhythm, Normal S1, Normal S2, No M/G/R Abdomen: Bowel Sounds Present, Soft, Non Tender, Non-Distended : No dysuria. No renal angle tenderness. No suprapubic tenderness. Extremities: No edema, Capillary Refill Less than 3 Seconds Skin: No rashes, No breakdown Musculoskeletal: No Tenderness to Palpation of Joints or Extremities Neurological: Cranial nerves II-XII grossly intact, DTR 2+/4. No acute focal neurological deficit. Psych/Mental Status: Flat affect. Weight / BMI Weight Weight: 171 lb 15.369 oz Body Mass Index (BMI) 24.6 ABG / Lab / Microbiology Data 06/29/24 05:42 06/29/24 05:42 Microbiology: Microbiology 06/28/24 03:52 Blood Culture (Wb) - Right Wrist Blood Culture - Preliminary No growth in 48 hours. 06/28/24 03:35 Blood Culture (Wb) - Anticubital Left Blood Culture - Preliminary No growth in 48 hours. 06/28/24 03:37 Mucosa - Nose SARS-CoV-2, Influenza & RSV (PCR) - Final Influenzae A D/C Instructions Discharge Diet: No restrictions Weight Bearing Status: Weight bearing as tolerated Call your doctor if you observe: Fever of 101 or Higher, Coldness, Increased Pain, Numbness or Tingling, Change in Color, Inability to urinate, Inability to have a bowel movement, Shortness of breath, Dizziness, Fainting spells, Swelling in the ankles, Chest pain, Prolonged hiccupping, Increased palpitations (irregular heartbeat) and Calf discomfort DC O2, CPAP, BIPAP Needs Home O2 Discharge instructions: No When: IN 2 WEEKS Meaningful Use Info Meaningful Use Meaningful Use Diagnoses (Choose all that apply): None applicable Ischemic Stroke Statin Dosing Therapy Reference: STATIN DOSE THERAPY REFERENCE: * Patients > 75 years receive moderate or high dose statin therapy. * Patients 75 years or YOUNGER should receive HIGH intensity statin dose unless contraindicated. You will be required to document reason for non-treatment if statin daily dose does not meet guidelines. HIGH DOSE STATIN THERAPY DAILY Atorvastatin > than or = to 40 mg Rosuvastatin > than or = to 20 mg Amlodipine + Atorvastatin > than or = to 2.5/40 mg Ezetimibe + Simvastatin 10/80 mg Simvastatin 80mg Discharge Plan Admission Admit Date/Time: 06/28/24 05:29 Primary Reason for Your Visit: COPD exacerbation from influenza A Attending Provider: Aron Rich Primary Care Provider: Silverio Ponce Consulting Providers: Barrie Hameed Instructions Additional Instructions / Restrictions: Follow-up with [facility] control room tender Dr. Rose Ryan. Continue incentive spirometry and PEP for 1 week Discharge Orders/Prescriptions Prescriptions: New doxycycline monohydrate 100 mg Capsule 100 mg PO BID 5 Days Qty: 10 0RF dextromethorphan-guaifenesin 60-1,200 mg tablet extended release 12 hr 1 tab PO BID 7 Days Qty: 14 0RF oseltamivir 75 mg capsule 75 mg PO BID 3 Days Qty: 6 0RF prednisone 20 mg tablet 40 mg PO DAILY 5 Days Qty: 10 0RF Continued fluticasone propionate 50 mcg/actuation spray,suspension 2 spray intranasal DAILY Qty: 16 3RF nitroglycerin 0.4 mg tablet, sublingual 0.4 mg Sublingual Q5M PRN (Reason: Angina pain) Qty: 25 3RF aspirin [Adult Aspirin Regimen] 81 mg tablet,delayed release (DR/EC) 81 mg PO DAILY PRN (Reason: thin blood) isosorbide mononitrate 30 mg tablet extended release 24 hr 30 mg PO BID Qty: 180 3RF Trelegy Ellipta 200-62.5-25 mcg blister with device 1 inh inhalation DAILY Qty: 60 11RF triamcinolone acetonide 0.1 % cream 0.1 applic TOPICAL BID PRN (Reason: rash) Patient Comments: Apply 1 application to affected area twice daily. Centrum Silver 0.4 mg-300 mcg- 250 mcg Tablet 1 tab PO DAILY carvedilol 6.25 mg tablet 12.5 mg PO BID atorvastatin 40 mg tablet 40 mg PO DAILY Qty: 90 3RF losartan 100 mg tablet 100 mg PO DAILY Qty: 90 3RF ipratropium-albuterol 0.5 mg-3 mg(2.5 mg base)/3 mL solution for nebulization 3 ml inhalation Q4H PRN PRN (Reason: SOB &/OR WHEEZING) Qty: 180 11RF albuterol sulfate [Ventolin HFA] 90 mcg/actuation HFA aerosol inhaler 2 puff INHALATION Q4H Qty: 8.5 5RF Referrals / Follow Up: Silverio Ponce PA [Primary Care Provider] - In 1 Week Disposition Disposition (needs filled in before D/C Order can be placed): Home, Self Care Charges/Coding Visit Charges Inpatient E&M: 31871 Disch Hosp >30min
--- NOTE | 2024-06-30 11:32 | CASEMGMT ---
Referral sent to [facility] for home oxygen via [facility]. Pt nurse states pt is anxious to dc.
--- NOTE | 2024-06-30 12:06 | NURSING ---
pt refusing to wear his 02 at rest. he is aware that he should stay in precautions until atleast 7 days after his symptoms start
--- NOTE | 2024-06-30 12:20 | PHA.DC_ITS ---
Pharmacy [facility] has performed discharge medication reconciliation and counseling for this patient. Patient counseled via telephone due to precautions. 1. MUCINEX-DM 1T PO BID 2. DOXYCYCLINE 100MG PO BID X 5 DAYS 3. OSELTAMIVIR 75MG PO BID X 3 DAYS 4. PREDNISONE 40MG PO DAILY X 5 DAYS The patient's discharge medication list was reviewed for discrepancies and discrepancies were resolved. The patient was counseled on the following discharge medications and changes in medications for homegoing were reviewed. The Reason for Use, instructions for use, and potential side effects were reviewed for all new medications. The patient's questions regarding all of their medications were answered. The patient was able to verbally demonstrate an understanding of their discharge medications. Medications at Discharge Home Medications mismgtit-xgt-ridvg acid 0.4 mg-lycopene 300 mcg-lutein 250 mcg tablet (Centrum Silver) 1 tab PO DAILY supplement 02/11/22 triamcinolone acetonide 0.1 % topical cream 0.1 applic topical BID PRN rash 02/11/22 nitroglycerin 0.4 mg sublingual tablet 0.4 mg sublingual Q5M PRN Angina pain #25 tabs 10/29/22 fluticasone propionate 50 mcg/actuation nasal spray,suspension 2 spray intranasal DAILY copd #16 grams 02/12/23 atorvastatin 40 mg tablet 40 mg PO DAILY hld #90 tabs 08/23/23 losartan 100 mg tablet 100 mg PO DAILY bp #90 TABLETS 12/08/23 ipratropium 0.5 mg-albuterol 3 mg (2.5 mg base)/3 mL nebulization soln 3 ml inhalation Q4H PRN PRN SOB &/OR WHEEZING #180 mL 01/02/24 aspirin 81 mg tablet,delayed release (Adult Aspirin Regimen) 81 mg PO DAILY PRN thin blood 02/05/24 isosorbide mononitrate 30 mg tablet,extended release 24 hr 30 mg PO BID heart #180 tabs 02/05/24 albuterol sulfate 90 mcg/actuation aerosol inhaler (Ventolin HFA) 2 puff inhalation Q4H #8.5 grams 03/03/24 fluticasone fur. 200 mcg-umeclid 62.5 mcg-vilant 25 mcg inhalat.powder (Trelegy Ellipta) 1 inh inhalation DAILY copd #60 ea 03/22/24 carvedilol 6.25 mg tablet 12.5 mg PO BID heart 06/28/24 dextromethorphan-guaifenesin ER 60 mg-1,200 mg tab,extend release,12hr 1 tab PO BID 7 days #14 tabs 06/30/24 doxycycline monohydrate 100 mg capsule 100 mg PO BID 5 days #10 caps 06/30/24 oseltamivir 75 mg capsule 75 mg PO BID 3 days #6 caps 06/30/24 prednisone 20 mg tablet 40 mg (2 x 20 mg) PO DAILY 5 days #10 tabs 06/30/24
== END 2024-06-30 12:39 | disposition home or self-care (01) | DRG 192 ==
LOC: ED 05:15 → MS3 05:45
PROVIDERS: Admitting Provider Internal Medicine; Emergency Provider Emergency Medicine; PCP Physician Assistant; Visit Provider Internal Medicine
DX: J44.1 Chronic obstructive pulmonary disease with (acute) exacerbation (principal); E78.5 Hyperlipidemia, unspecified; I10 Essential (primary) hypertension; F17.210 Nicotine dependence, cigarettes, uncomplicated; I25.10 Atherosclerotic heart disease of native coronary artery without angina pectoris; J10.1 Influenza due to other identified influenza virus with other respiratory manifestations; M19.91 Primary osteoarthritis, unspecified site; K44.9 Diaphragmatic hernia without obstruction or gangrene; I25.2 Old myocardial infarction; Z82.3 Family history of stroke; Z95.5 Presence of coronary angioplasty implant and graft
CPT/HCPCS: 36415; 71045; 80048; 80053; 82803; 83605; 83735; 84100; 84439; 84443; 84481; 84484; 85025; 87040; 87631; 93005; 94640; 94668; 94762; 99252; 99284; 99406; A4216; G0463

== ENCOUNTER 2024-10-24 13:28 | Emergency (ER) | payer MEDICARE, SELFPAY ==
[2018-07-10 14:12] VITALS: BMI 24.7
[2024-10-24] VITALS (8 sets, daily range): BP systolic 111–145; BP diastolic 62–116; PULSE 64–91; RESP 17–26; TEMP 36.6–37.1; O2SAT 91–98
--- NOTE | 2024-10-24 13:49 | EKG12_ITS ---
Test Reason : SOB Blood Pressure : */* mmHG Vent. Rate : 68 BPM Atrial Rate : 68 BPM P-R Int : 136 ms QRS Dur : 76 ms QT Int : 398 ms P-R-T Axes : 76 38 270 degrees QTcB Int : 423 ms Sinus rhythm with Premature atrial complexes Septal infarct , age undetermined ST & T wave abnormality, consider inferior ischemia Abnormal ECG Confirmed by LYNN BBOBY, LOKESH ([id number]), editorial assistant ESTELLE PANCHAL ([id number]) on 10/26/2024 7:43:47 AM Referred By: Confirmed By: LOKESH BAILEY MD
--- NOTE | 2024-10-24 13:50 | ED.VIS.DYS ---
HPI History of Present Illness Chief Complaint: Shortness of Breath Narrative Narrative: 74-year-old male past medical history of COPD, wears 1.5 L of oxygen as needed presents with increasing shortness of breath. He and his relate history that they both became ill with upper respiratory infection type symptoms over the last week. She was placed on antibiotics on , 4 days ago. He has had to use his oxygen more. He has been using his albuterol nebulizer treatments twice a day. He continues to smoke cigarettes about a half a pack a day, but states he has not for the last few days. He has increasing dyspnea on exertion as well and has had to wear his oxygen almost at all times. No leg swelling, denies other symptoms. He states he was at the [employer] last week, and since then he has gotten worse. Last prednisone use was in June of this year, approximately 3 to 4 months ago. [facility] Medical History Influenza A COPD exacerbation Stopped smoking with greater than 40 pack year history Anemia History of steroid therapy Hiatal hernia History of stress test HTN (hypertension) Heart attack Hyperlipidemia Nicotine dependence Essential (primary) hypertension Atherosclerotic heart disease of [place] coronary artery without angina pectoris CAP (community acquired pneumonia) Tobacco dependence in remission Tobacco abuse COPD (chronic obstructive pulmonary disease) Home Medications ?Medication ?Instructions ?Recorded ?Last Taken ?Type ninwlwbr-zan-pwlkq acid 0.4 1 tab PO DAILY supplement 02/11/22 3 Days Ago History mg-lycopene 300 mcg-lutein 250 mcg ~02/08/22 tablet (Centrum Silver) triamcinolone acetonide 0.1 % 0.1 applic topical BID PRN rash 02/11/22 Unknown History topical cream nitroglycerin 0.4 mg sublingual 0.4 mg sublingual Q5M PRN Angina 10/29/22 Unknown Rx tablet pain #25 tabs ipratropium 0.5 mg-albuterol 3 mg 3 ml inhalation Q4H PRN PRN SOB 01/02/24 10/24/24 Rx (2.5 mg base)/3 mL nebulization &/OR WHEEZING #180 mL soln aspirin 81 mg tablet,delayed 81 mg PO DAILY PRN thin blood 02/05/24 Unknown History release (Adult Aspirin Regimen) isosorbide mononitrate 30 mg 30 mg PO BID heart #180 tabs 02/05/24 10/24/24 Rx tablet,extended release 24 hr fluticasone fur. 200 mcg-umeclid 1 inh inhalation DAILY copd #60 ea 03/22/24 10/23/24 Rx 62.5 mcg-vilant 25 mcg inhalat.powder (Trelegy Ellipta) atorvastatin 40 mg tablet 40 mg PO DAILY hld #90 tabs 08/09/24 10/24/24 Rx albuterol sulfate 90 mcg/actuation 2 puff inhalation Q4H #8.5 grams 09/20/24 Unknown Rx aerosol inhaler (Ventolin HFA) azithromycin 250 mg tablet 250 mg PO DIRECTED 10/13/24 10/24/24 History carvedilol 12.5 mg tablet 12.5 mg PO BID 10/24/24 10/24/24 History fluticasone propionate 50 2 spray intranasal DAILY PRN copd 10/24/24 Unknown History mcg/actuation nasal spray,suspension prednisone 20 mg tablet 40 mg (2 x 20 mg) PO DAILY 10 days 10/24/24 Unknown Rx #20 tabs Allergy/AdvReac Type Severity Reaction Status Date / Time bee venom protein (honey bee) Allergy Anaphylaxis Verified 10/24/24 13:30 clopidogrel (From Plavix) Allergy rash Verified 10/24/24 13:30 lactose AdvReac Other Verified 10/24/24 13:30 lisinopril AdvReac cough Verified 10/24/24 13:30 Family History Mother CVA (cerebral vascular accident) Father Heart disease Surgical History Status post cardiac surgery History of shoulder surgery History of coronary artery stent placement (07/10/18) Social History Smoking Status: Current every day smoker tobacco type: cigarettes second hand exposure: Yes alcohol intake: never substance use type: does not use caffeine: No what type of physical activity do you participate in: running and weight training ROS ROS ED ROS Narrative Review of systems positive for cough with thick phlegm production, subjective fever on occasion, increasing shortness of breath and dyspnea on exertion. No leg swelling, no chest pain, no other symptoms. EXAM Physical Exam Narrative Exam Narrative: Afebrile. Vital signs noted. Nontoxic-appearing. Cardiovascular examination reveals a regular rate and rhythm. Respiratory examination shows mild tachypnea with decreased breath sounds bilateral bases with occasional expiratory wheeze. Moving a fair amount of air. Occasional accessory muscle use. Abdomen soft and nontender with normoactive bowel sounds. Neurological examination nonfocal and nonlateralizing. No appreciable pedal edema. Const Vital Signs: 10/24/24 13:28 10/24/24 13:30 10/24/24 13:49 Temperature 98.7 F 98.7 F Temperature Source Oral Oral Pulse Rate 91 85 Respiratory Rate 24 H 19 H Respiratory Effort Respiratory Depth Respiratory Pattern Blood Pressure 145/116 H 145/116 H Blood Pressure Mean 125 125 Pulse Ox 91 96 96 Oxygen Delivery Method Room Air Nasal Cannula Room Air Oxygen Flow Rate (L/min) 2 10/24/24 13:54 10/24/24 14:12 10/24/24 14:28 Temperature Temperature Source Pulse Rate 84 78 Respiratory Rate 20 H 17 Respiratory Effort Normal Respiratory Depth Normal Respiratory Pattern Normal Tachypnea Blood Pressure 119/62 Blood Pressure Mean 81 Pulse Ox 96 Oxygen Delivery Method Nasal Cannula Nasal Cannula Oxygen Flow Rate (L/min) 2 2 10/24/24 15:00 Temperature Temperature Source Pulse Rate 64 Respiratory Rate 26 H Respiratory Effort Respiratory Depth Respiratory Pattern Blood Pressure 111/69 Blood Pressure Mean 83 Pulse Ox 98 Oxygen Delivery Method Nasal Cannula Oxygen Flow Rate (L/min) MDM MDM MDM Narrative Medical decision making narrative: Differential diagnosis includes but not limited to pneumonia versus pneumothorax versus COPD exacerbation. Patient's pulse ox 91% on room air. He is placed on nasal cannula oxygen. He will be given a DuoNeb aerosolized treatment and Solu-Medrol 125 mg intravenously. Comprehensive workup was pursued including 1 view chest x-ray and basic laboratory work. EKG was obtained and interpreted by myself independently as normal sinus rhythm with PACs at [address]pm but no acute ST changes. No STEMI. I reviewed his laboratory work and he has normal white count of 5.8 with hemoglobin normal at 15.8, no anemia, platelet count slightly low at 115. When compared to prior labs he has had thrombocytopenia in the past. Electrolyte panel was grossly unremarkable with glucose 98, normal BUN and creatinine, normal sodium. Chest x-ray interpreted by myself independently shows no evidence of pneumonia or pneumothorax. I do not feel antibiotics are indicated. I reviewed the radiology report which confirms my independent interpretation and states is concerning for emphysema. Upon repeat examination after Solu-Medrol and DuoNeb aerosolized treatment, patient feels improved and would like to be discharged. I feel he would benefit from a prednisone burst again for 10 days. He states he has plenty of nebulizers and albuterol rescue inhalers at home. Smoking cessation was discussed. He was advised to use the nebulizer treatments/albuterol every 4-6 hours. He can use his oxygen at home but was told to return if he is using or requiring more than 5 L/min. He will follow-up with his [employer]. Return instructions reviewed. Patient motivated for discharge. Disposition is discharged home in stable condition. History & Record Review Discussion w/independent historian: Patient Additional record(s) reviewed:: Prior labs Lab Data Attestation: I reviewed the patient's lab results. Labs: Laboratory Results - last 24 hr 10/24/24 13:48 WBC 5.8 RBC 5.22 Hgb 15.8 Hct 47.8 MCV 91.6 MCH 30.3 MCHC 33.1 RDW Std Deviation 47.0 H RDW Coeff of Itz 13.9 Plt Count 115 L MPV 10.5 Immature Gran % (Auto) 0.200 Neut % (Auto) 69.4 Lymph % (Auto) 16.4 L [place] % (Auto) 13.3 H Eos % (Auto) 0.0 Baso % (Auto) 0.7 Absolute Neuts (auto) 4.0 Absolute Lymphs (auto) 0.95 Nucleated RBC % 0 Sodium 138 Potassium 3.9 Chloride 101 Carbon Dioxide 25.3 Anion Gap 12 BUN 8 Creatinine 0.98 Est GFR (MDRD) Non-Af 81 BUN/Creatinine Ratio 8.5 L Glucose 98 Calcium 9.0 Radiography Diagnostic Testing: Clinical Impression(s) from Imaging Studies Chest X-Ray 10/24/24 13:55 IMPRESSION: No acute process. Worrisome for emphysema. [facility] Triage Chief Complaint: Shortness of Breath ED Provider: Sarthak Rizo Dx/Rx/DC Orders Clinical Impression: COPD (chronic obstructive pulmonary disease), Essential (primary) hypertension, SOB (shortness of breath) on exertion Instructions: ED COPD Flare, ED Dyspnea Prescriptions: New prednisone 20 mg tablet 40 mg PO DAILY 10 Days Qty: 20 0RF No Action nitroglycerin 0.4 mg tablet, sublingual 0.4 mg Sublingual Q5M PRN (Reason: Angina pain) Qty: 25 3RF aspirin [Adult Aspirin Regimen] 81 mg tablet,delayed release (DR/EC) 81 mg PO DAILY PRN (Reason: thin blood) isosorbide mononitrate 30 mg tablet extended release 24 hr 30 mg PO BID Qty: 180 3RF Trelegy Ellipta 200-62.5-25 mcg blister with device 1 inh inhalation DAILY Qty: 60 11RF azithromycin 250 mg tablet 250 mg PO DIRECTED albuterol sulfate [Ventolin HFA] 90 mcg/actuation HFA aerosol inhaler 2 puff INHALATION Q4H Qty: 8.5 5RF triamcinolone acetonide 0.1 % cream 0.1 applic TOPICAL BID PRN (Reason: rash) Patient Comments: Apply 1 application to affected area twice daily. Centrum Silver 0.4 mg-300 mcg- 250 mcg Tablet 1 tab PO DAILY carvedilol 12.5 mg tablet 12.5 mg PO BID fluticasone propionate 50 mcg/actuation spray,suspension 2 spray intranasal DAILY PRN (Reason: copd) ipratropium-albuterol 0.5 mg-3 mg(2.5 mg base)/3 mL solution for nebulization 3 ml inhalation Q4H PRN PRN (Reason: SOB &/OR WHEEZING) Qty: 180 11RF atorvastatin 40 mg tablet 40 mg PO DAILY Qty: 90 3RF Primary Care Provider: Silverio Ponce Referrals: Derian Ryan DO [Med Staff - Active Staff] - 3-5 Days if not improving Silverio Ponce PA [Primary Care Provider] - Activity Restrictions/Additional Instructions: Use your albuterol or nebulizer every 4-6 hours as needed for shortness of breath especially over the next few days. Take the prednisone burst as directed. Stop smoking. Use your oxygen as needed. If you are requiring more than 5 L to maintain an 90% pulse ox you should return to the emergency department. Return with increasing shortness of breath, new or worsening symptoms. Print Language: [place] Disposition Disposition: Home, Self Care
--- NOTE | 2024-10-24 13:55 | RAD_ITS ---
PROCEDURE: CHEST 1 VIEW (PORTABLE) 10/24/2024 REASON FOR EXAM: SHORTNESS OF BREATH TECHNIQUE: Frontal view of the chest. COMPARISON: Chest radiograph 06/28/2024 FINDINGS: Hardware: Plate and screws transfix old clavicle fracture Heart: Normal size Lungs: Hyperinflated, hyperlucent appearance of COPD. No acute consolidating airspace disease or interstitial abnormality. Bones: No aggressive bone lesions identified. Other: RAD/Chest 1 View (Portable) IMPRESSION: No acute process. Worrisome for emphysema. Reading [facility]
[2024-10-24 13:58] LABS: Absolute Lymphocyte Count 0.95 X10^3/uL (0.83-4.51); Basophil# 0.04 X10^3/uL; Basophil% 0.7 % (0-1); Hematocrit 47.8 % (40-54); Hemoglobin 15.8 g/dL (13.0-16.5); Lymphocyte # 0.95 X10^3/ul (0.83-4.51); Lymphocyte % 16.4 % (19-41); Mean Corp Hgb Conc 33.1 g/dL (32-36); Mean Corpuscular Hgb 30.3 pg (27.0-32.0); Mean Corpuscular Volume 91.6 fL (80-94); Mean Platelet Vol. 10.5 fl (6.2-12.0); Monocyte# 0.77 X10^3/uL; Monocyte% 13.3 % (0-10); NRBC Flagged by Analyzer 0 % (0-5); Neutrophil # 4.04 X10^3/uL (2.7-7.7); Neutrophil % 69.4 % (47-70); Platelet Count 115 K/mm3 (150-450); RBC Distribution Width CV 13.9 % (11.6-14.6); Red Blood Count 5.22 M/mm3 (4.6-6.2); White Blood Count 5.8 K/mm3 (4.4-11.0)
[2024-10-24] MEDS: MethylPREDNISolone 125 MG/2 ML Vial IV (14:01)
[2024-10-24] MEDS: Ipratropium/Albuterol Sulfate 3 ML AMPUL.NEB INHALATION (14:11)
--- OUTSIDE RECORDS SUMMARY | 2024-10-24 14:12 | XMS RPT_ITS | CCD ---
Author Organization [facility] Providers Care Hand Cultivator Name Role Phone REFERRINGOSVALDO ID~[id number] Unavailable Unava ilable KOFOL, LUIS Unavailable Unavailable KOFOL, LUIS Unavailable Unavailable MADELINE NIX Unavailable Unavailable ANISH VASQUEZ Unavailable Unavailable MEL GONZALES Unavailable Unavailable RICCHETTI, BOWEN T Unavailable Unavailable RICCHETTI, BOWEN T Unavailable Unavailable ZULEIKA GOMEZ Unavailable Unavailable RICCHETTI, BOWEN T Referring Unavailable RICSAVTTI, BOWEN T Referring Unavailable Silverio Ponce PA-C Primary Care Provider [phone] Kris WATSONCSilverio Primary Care Provider Kris PA PA Silverio Schwartz Primary Care Provider Kris TRAN PA Silverio Schwartz Referring Provider Sanjuanita PEREZ, CAMERA CONTROL OPERATOR-C Bette Attending Provider Silverio Ponce PA-C Primary Care Provider Dr. Jez Coleman Emergency Provider Dr. My Curry Admit Provider Dr. My Curry Other Provider Dr. Kristina Mendez Other Provider Friend, Dr. Alvarez Attending Provider [phone] Dr. Kristina Mendez Attending Provider Silverio Ponce PA-C Primary Care Provider Ponce PA, PA Silverio Schwartz Primary Care Provider Kris PA, PA Silverio Schwartz Referring Provider Quique CAMERA CONTROL OPERATOR, ROSA ISELA Man Attending Provider Quique PEREZ, ANA-C Magda Referring Provider Quique PEREZ, ANA-C Magda Other Provider [phone] Dr. Vinh Yuan Attending Provider MARC Butler Primary Care Provider MARC Butler Referring Provider Dr. Vinh Yuan Attending Provider [phone] Kris SLOAN, Silverio Schwartz Primary Care Provider [phone] Suppan RESIDENTIAL SUBCONTRACTOR.FUNDRAISING SALE REPRESENTATIVE, Anh A Primary Care Provi trent Suppan RESIDENTIAL SUBCONTRACTOR.FUNDRAISING SALE REPRESENTATIVE, Anh A Primary Care Provi trent KAYLA HUMPHREY Attending Unavailable SUPPAN, ANH A Primary Care Unavailable SUPPAN, ANH A Attending Unavailable SUPPAN, ANH A Primary Care Unavailable SUPPAN, ANH A Attending Unavailable SUPPAN, ANH A Primary Care Unavailable SUPPAN, ANH A Attending Unavailable PONCEKELL LADD Primary Care Unavailable SUPPLUIS EDUARDO, ANH A Attending Unavailable PONCEKELL LADD Primary Care Unavailable SUPPAN, ANH A Attending Unavailable SUPPAN, ANH A Primary Care Unavailable Barrie Hameed Admitting Unavailable Aron Rich Attending Unavailable Barrie Hameed Consulting Unavailable Silverio Butler Primary Care Unavailable Barrie Hameed Consulting Unavailable Aron Rich Attending Unavailable Barrie Hameed Admitting Unavailable Ponce MARC M Madeline Primary Care Unavailable Aron Rich Consulting Unavailable Bette Gann NP Attending Unavailable Ponce PA M Madeline Primary Care Unavailable Ponce PA M Madeline Referring Unavailable Bette Gann NP Attending Unavailable Ponce PA M Madeline Referring Unavailable Ponce PA M Madeline Primary Care Unavailable Magda Lei NP Attending Unavailable Ponce PA, M Madeline Primary Care Unavailable Ponce PA, M Madeline Referring Unavailable Barrie Hameed Attending Unavailable Zaynab Verde Attending Unavail able Ponce PA M Madeline Referring Unavailable Ponce PA, M Madeline Primary Care Unavailable Bette Gann NP Attending Unavailable Ponce PA, M Madeline Referring Unavailable Silverio Butler Primary Care Unavailable Bette Gann NP Attending Unavailable Bette Gann NP Referring Unavailable Silverio Butler Primary Care Unavailable Allergies Allergy Classification Reported Allergen(s) Allergy Type Date of Onset Reaction(s) Facility (20 sources) Milk; Translations: [MILK] Propensity to adverse reactions to drug (disorder) 6 Other: See Comments [facility] Repository (20 sources) BEE STING; Translations: [BEE STING] Propensity to adverse reactions (disorder) [address] [facility] Repository (7 sources) clopidogrel Drug Allergy 2 rash [facility] (7 sources) Lactose Drug Allergy 2 Other [facility] (7 sources) Lisinopril Drug Allergy 2 cough [facility] (7 sources) bee venom protein (honey bee) Allergy to substance 2 Anaphylaxis [facility] (1 source) clopidogrel Drug Allergy 5 [facility] Repository (1 source) Lactose Drug Allergy 5 [facility] Repository (1 source) Lisinopril Drug Allergy 5 [facility] Repository (1 source) bee venom protein (honey bee) Drug allergy (disorder) 5 [facility] Repository Medications Current Medications Medication Drug Class(es) Dates Sig (Normalized) Sig (Original) acyclovir 800 mg oral tablet (1 source) Herpesvirus Nucleoside Analog DNA Polymerase Inhibitor, Herpes Simplex Virus Nucleoside Analog DNA Polymerase Inhibitor, Herpes Zoster Virus Nucleoside Analog DNA Polymerase Inhibitor Start: 01-27-2022 take 800 mg by mouth five times daily Acyclovir Active 800 MG PO 5 TIMES DAILY 35 January 27, 2022 12:00am [id number] 200 actuat albuterol 0.09 mg/actuat metered dose inhaler (20 sources) beta2-Adrenergic Agonist Start: 05-08-2022 End: 01-01-2025 take 2 puff(s) by inhalation every six hours as needed albuterol HFA (PROAIR HFA) 90 mcg/actuation inhaler Indications: Asthma with COPD with exacerbation (HCC) Inhale 2 Puffs as instructed every 6 hours as needed. 1 Each 5 07/05/2024 01/01/2025 Active Start: 03-13-2020 End: 03-21-2023 take 1 puff(s) by inhalation every four hours Albuterol Sulfate (Ventolin Hfa) 90 mcg/actuation HFA aerosol inhaler Discontinued 2 PUFF INHALATION Q4H 8.5 January 02, 2022 8:03am March 21, 2023 11:37am Start: 11-19-2019 End: 09-30-2022 take 2 puff(s) by inhalation every four hours as needed for wheezing albuterol HFA (VENTOLIN HFA) 90 mcg/actuation inhaler Indications: SOB (shortness of breath) Inhale 2 Puffs as instructed every 4 hours as needed for Wheezing/Shortness of Breath. 1 Inhaler 1 11/19/2019 09/30/2022 Discontinued (Duplicate Entry) Start: 06-05-2017 End: 06-05-2017 take 1 puff(s) by inhalation every four hours Albuterol Sulfate (Ventolin Hfa) 90 mcg/actuation HFA aerosol inhaler Discontinued 2 PUFF INHALATION Q4H June 05, 2017 1:00am June 05, 2017 8:20am Comment on above: Inhale 2 Puffs as in structed every 4 hours as needed for Wheezing/Shortness of Breath. Inhale 2 Puffs as in structed every 6 hours as needed. albuterol 0.833 mg/ml / ipratropium bromide 0.167 mg/ml inhalation solution (5 sources) Anticholinergic, beta2-Adrenergic Agonist Start: 023 take 1 mL by inhalation every four hours as needed Ipratropium-Albut nicole Active 3 ML INHALATION EVERY 4 HOURS NEEDED 180 February 12, 2023 12:00am take 3 mL by inhalat ion every six hours as needed ipratropium-albuterol (DUONEB) 0.5 mg-3 mg(2.5 mg base)/3 mL nebu Inhale 3 mL as instructed every 6 hours as needed for wheezing/shortness of breath. Active amLODIPine 5 mg oral tablet (1 source) Dihydropyridine Calcium Channel Rico Start: 04-13-2024 End: 04-13-2024 take 1 tablet by mouth once daily amLODIPine (NORVASC) 5 mg tablet Indications: Essential hypertension Take 1 tablet by mouth once daily. 90 tablet 1 04/13/2024 04/13/2024 Discontinued (Lack of Efficacy) amoxicillin 875 mg / clavulanate 125 mg oral tablet (3 sources) Penicillin-class Antibacterial Start: 04-22-2024 End: 04-29-2024 take 1 tablet by mouth twice daily amoxicillin-clavul anate potassium (AUGMENTIN) 875-125 mg per tablet Take 1 tablet by mouth two times a day for 7 days. Patient should start on April 22, 2024. 14 tablet 04/22/2024 04/29/2024 Active Start: 11-18-2023 End: 11-28-2023 take 1 tablet by mouth twice daily amoxicillin-clavulanate potassium (AUGMENTIN) 875-125 mg per tablet Indications: Swollen lymph nodes Take 1 tablet by mouth two times a day for 10 days. 20 tablet 0 11/18/2023 11/28/2023 Active aspirin 81 mg delayed release oral tablet (20 sources) Platelet Aggregation Inhibitor, Nonsteroidal Anti-inflammatory Drug Start: 08-07-2023 take 1 tablet by mouth once daily Aspirin (Adult Aspirin Regimen) 81 mg tablet,delayed release (DR/EC) Active 81 MG PO DAILY August 07, 2023 12:00am Start: 07-11-2018 End: 09-30-2022 take 81 mg by mouth once daily Aspirin Discontinued 81 MG PO DAILY@0800 July 11, 2018 1:00am February 13, 2022 8:58am Comment on above: Take 81 mg by mouth once daily. azithromycin 250 mg oral tablet (3 sources) Macrolide Antimicrobial Start: 07-05-2024 End: 07-10-2024 azithromycin (ZITHROMAX Z-SIDNEY) 250 mg tablet Indications: Influenza A , Asthma with COPD with exacerbation (HCC) Take 2 tablets day one, then, 1 tablet daily until gone. 6 tablet 07/05/2024 07/10/2024 Active Start: 11-28-2023 End: 12-03-2023 azithromycin (ZITHROMAX Z-PA K) 250 mg tablet Take 2 tablets day one, then, 1 tablet daily until gone. 6 tablet 0 11/28/2023 11/28/2023 Discontinued benzonatate 100 mg oral capsule (5 sources) Non-narcotic Antitussive Start: 07-05-2024 End: 07-20-2024 take 1 capsule by mouth three times daily as needed benzonatate (TESSALON PERLE) 100 mg capsule Indications: Asthma with COPD with exacerbation (HCC) Take 1 capsule by mouth three times a day as needed for up to 15 days. 45 capsule 07/05/2024 07/20/2024 Active Start: 05-08-2022 take 2 capsules by m outh every eight hours as needed benzonatate (TESSALON PERLES) 100 mg capsule Take 2 capsules by mouth three times daily as needed. 30 capsule 0 05/08/2022 Active Comment on above: Take 2 capsules by m outh three times daily as needed. budesonide 0.5 mg/ml inhalation suspension (2 sources) Corticosteroid Start: 02-13-20 23 take 1 mg by inhalation twice daily Budesonide Active 1 MG INHALATION TWICE A DAY 60 February 12, 2023 12:00am carvedilol 12.5 mg oral tablet (20 sources) alpha-Adrenergic Rico, beta-Adrenergic Rico Start: 04-13-20 End: 10-11-19 25 take 1 tablet by mouth twice daily carvedilol (COREG) 12.5 mg tablet Indications: Essential hypertension Take 1 tablet by mouth two times a day. 180 tablet 1 04/13/2024 10/10/2024 Active Start: 11-21-2020 End: 04-13-2024 take 1 tablet by mouth twice daily carvedilol (COREG) 6.25 mg tablet Take 1 tablet by mouth twice daily. 10/19/2021 04/13/2024 Discontinued Start: 11-22-2019 End: 10-19-2021 take 3.125 mg by mouth twice daily Carvedilol Discontinued 3.125 MG PO TWICE A DAY 180 December 21, 2019 3:14pm November 21, 2020 10:19am Start: 07-11-2018 End: 10-28-2018 take 3.125 mg by mouth twice daily Carvedilol Discontinued 3.125 MG PO TWICE A DAY 180 September 07, 2018 10:07am October 28, 2018 11:23am Comment on above: Take 1 tablet by emanuel th twice daily. Take 1 tablet by emanuel th twice daily with meals. ciprofloxacin 500 mg oral tablet (1 source) Quinolone Antimicrobial Start: End: 06-27-2 022 take 1 tablet by mouth twice daily ciprofloxacin HCl (CIPRO) 500 mg tablet Indications: Acute cystitis with hematuria Take 1 tablet by mouth twice daily for 10 days. 20 tablet 0 10/26/2021 11/05/2021 Active Comment on above: Take 1 tablet by emanuel twice daily for 10 days. doxycycline hyclate 100 mg oral tablet (1 source) Tetracycline-class Drug Start: 022 End: 023 take 1 tablet by mouth twice daily doxycycline (VIBRA-TABS) 100 mg tablet Take 1 tablet by mouth twice daily for 7 days. 14 tablet 0 05/08/2022 05/15/2022 Active Comment on above: Take 1 tablet by emanuel twice daily for 7 days. [id number] 0.3 ml EPINEPHrine 1 mg/ml auto-injector (20 sources) alpha-Adrenergic Agonist, beta-Adrenergic Agonist, Catecholamine Start: 016 EPINEPHrine (EPIPEN 2-SIDNEY) 0.3 mg/0.3 mL auto-injector Inject 0.3 mL intramuscularly as needed. 1 Each 0 02/12/2016 Active Comment on above: Inject 0.3 mL intram uscularly as needed. fluticasone propionate 0.05 mg/actuat metered dose nasal spray (5 sources) Corticosteroid Start: 023 Fluticasone Propionate Active 2 SPRAY INTRANASAL DAILY February 12, 2023 12:00am Start: 05-08-2022 take 2 spray(s) by m outh once daily fluticasone (FLONASE) 50 mcg/actuation nasal spray Use 2 Sprays in each nostril once daily. Rinse mouth after use. 1 Each 0 05/08/2022 Active Comment on above: Use 2 Sprays in each nostril once daily. Rinse mouth after use. 24 hr isosorbide mononitrate 30 mg extended release oral tablet (20 sources) Nitrate Vasodilator Start: 9 End: 3 take 1 tablet by mouth once daily, then take 1 tablet by mouth every twenty-four hours isosorbide mononitrate ER (IMDUR) 30 mg 24 hr tablet Indications: S/P right coronary artery (RCA) stent placement Take 30 mg by mouth once daily. 01/24/2022 Active Comment on above: Take 30 mg by mouth once daily. losartan potassium 100 mg oral tablet (20 sources) Angiotensin 2 Receptor Rico Start: End: 3 take 1 tablet by mouth once daily losartan (COZAAR) 100 mg tablet Indications: Essential hypertension Take 100 mg by mouth once daily. 12/13/2021 Active Start: 08-31-2019 End: 11-21-2020 take 50 mg by mouth once daily Losartan Discontinued 5 0 MG PO DAILY August 23, 2020 8:53am November 21, 2020 10:19am Comment on above: Take 100 mg by mouth once daily. methylPREDNISolone (2 sources) Corticosteroid Start: 11-28-2023 End: 11-28-2023 methylPREDNISolone (MEDROL, SIDNEY,) 4 mg Dose-Pack Follow dosing instructions, take with food. 21 tablet 0 11/28/2023 11/28/2023 Discontinued Start: 11-28-2023 End: 12-04-2023 methylPREDNISolone (MEDROL, SIDNEY,) 4 mg Dose-Pack Follow dosing instructions, take with food. 21 tablet 0 11/28/2023 12/04/2023 Active Mzttrnix-Heu-Nt-Lycopen-Lute in (Centrum Silver) 0.4 mg-300 mcg- 250 mcg Tablet (5 sources) Start: 02-11-2022 take 1 tablet by mouth once daily Djxrxffp-Dvv-Vj-Lycopen-Lutein (Centrum Silver) 0.4 mg-300 mcg- 250 mcg Tablet Active 1 TABLET PO DAILY February 11, 2022 12:00am multivitamin tablet (20 sources) take 1 tablet by mouth once daily multivitamin tablet Take 1 tablet by mouth once daily. Active take 1 tablet by mouth once ayanna y multivitamin tablet Take 1 tablet by mouth once daily. 0 Active Comment on above: Take 1 tablet by emanuel th once daily. predniSONE 20 mg oral tablet (2 sources) Start: 07-05-2024 End: 07-10-2024 take 1 tablet by mouth once daily predniSONE (DELTASONE) 20 mg tablet Indications: Asthma with COPD with exacerbation (HCC) Take 1 tablet by mouth once daily for 5 days. 5 tablet 07/05/2024 07/10/2024 Active Start: 01-27-2022 take 60 mg by mouth once daily Prednisone Active 60 MG PO DAILY 42 January 27, 2022 12:00am triamcinolone acetonide 1 mg/ml topical cream (20 sources) Corticosteroid Start: 01-12-2019 End: 02-04-2022 triamcinolone acetonide (KENALOG) 0.1 % cream Indications: Rash Apply 1 application to affected area twice daily. 30 g 2 02/04/2022 Active Comment on above: Apply 1 application to affected area twice daily. Completed/Discontinued Medications Medication Drug Class(es) Dates Sig (Normalized) Sig (Original) acetaminophen 325 mg / oxyCODONE hydrochloride 5 mg oral tablet (7 sources) Opioid Agonist Start: 07-09-2018 End: 08-07-2018 take 1 tablet by mouth every four hours as needed Oxycodone-Acetaminop hen Discontinued 1 - 2 TABLET PO EVERY 4 HOURS NEEDED July 09, 2018 1:00am August 07, 2018 10:34am amoxicillin 500 mg oral capsule (3 sources) Penicillin-class Antibacterial Start: 02-19-2022 End: 04-29-2022 take 500 mg by mouth twice daily Amoxicillin Discontinued 500 MG PO TWICE A DAY February 19, 2022 12:00am April 29, 2022 11:14am atorvastatin 40 mg oral tablet (20 sources) HMG-CoA Reductase Inhibitor Start: 07-11-2018 End: 08-28-2022 take 40 mg by mouth once daily Atorvastatin Discontinued 40 MG PO DAILY August 27, 2021 12:38pm August 28, 2022 12:19pm Comment on above: Take 40 mg by mouth once daily. cholecalciferol 0.025 mg oral tablet (9 sources) Vitamin D Start: 07-09-2018 End: 08-07-2018 take 1000 [IU] by mouth once daily Cholecalciferol (Vitamin D3) Discontinued 1000 UNIT PO DAILY July 09, 2018 1:00am August 07, 2018 10:34am End: 10-26-2021 take 1 capsule by mouth once daily Cholecalciferol, Vitamin D3, (VITAMIN D) 1,000 unit cap Take 1,000 Units by mouth once daily. 10/26/2021 Discontinued (Discontinued by Patient) Comment on above: Take 1,000 Units by mouth once daily. clarithromycin 500 mg oral tablet (3 sources) Macrolide Antimicrobial Start: 022 End: take 500 mg by mouth twice daily Clarithromycin Discontinued 500 MG PO TWICE A DAY February 19, 2022 12:00am October 29, 2022 10:47am clopidogrel 75 mg oral tablet (7 sources) [id number] Platelet Inhibitor Start: End: 019 take 2 tablets by mouth once daily, then take 1 tablet by mouth once daily in the morning Clopidogrel (Plavix) 75 mg tablet Discontinued 75 MG PO DAILY October 02, 2018 12:00am October 28, 2018 11:20am Take 2 tablets tonight 10/02/18 and then one tablet every morning CYANOCOBALAMIN, VITAMIN B-12, (VITAMIN B-12 ORAL) (2 sources) End: CYANOCOBALAMIN, VITAMIN B-12, (VITAMIN B-12 ORAL) Take by mouth once daily. 10/26/2021 Discontinued (Discontinued by Patient) CYANOCOBALAMIN, VITAMIN B-12, (VITAMIN B-12 ORAL) Take by mouth once daily. 0 Active Comment on above: Take by mouth once d aily. esomeprazole 40 mg delayed release oral capsule (7 sources) Proton Pump Inhibitor Start: 9 End: 0 take 1 capsule by mouth once daily Esomeprazole Magnesium (Nexium) 40 mg capsule,delayed release(DR/EC) Discontinued 40 MG PO DAILY October 28, 2018 12:00am September 09, 2019 9:44am famotidine 20 mg oral tablet (9 sources) Histamine-2 Receptor Antagonist Start: 1 End: 1 take 20 mg by mouth once daily Famotidine Discontinued 20 MG PO DAILY November 21, 2020 12:00am November 21, 2020 9:45am Start: 05-23-2020 End: 10-26-2021 take 1 tablet by mouth twice daily famotidine (PEPCID) 20 mg tablet Indications: Gastroesophageal reflux disease with esophagitis without hemorrhage Take 1 tablet by mouth twice daily. 60 tablet 5 05/23/2020 10/26/2021 Discontinued (Discontinued by Patient) Comment on above: Take 1 tablet by emanuel th twice daily. Fluticasone-Umeclidin- Vilanter (20 sources) Anticholinergic, Corticosteroid, beta2-Adrenergic Agonist Start: 02-06-2023 End: 02-12-2023 Vyprjyjpphm-Vaicdxnkv-Hgbh nter (Trelegy Ellipta) 100-62.5-25 mcg blister with device Discontinued 1 INH INHALATION DAILY 60 February 06, 2023 11:03am February 12, 2023 8:05am Start: 02-05-2023 End: 02-06-2023 Qovqnuztplw-Tjjdiupjd-Wglqzz er (Trelegy Ellipta) 100-62.5-25 mcg blister with device Discontinued 1 INH INHALATION DAILY 60 February 05, 2023 10:37am February 06, 2023 11:03am Start: 01-27-2022 End: 02-05-2023 Zwpjppryfqi-Afwlirtvg-Sxynuk er (Trelegy Ellipta) 100-62.5-25 mcg blister with device Discontinued 1 INH INHALATION DAILY January 27, 2022 12:00am February 05, 2023 10:37am Start: 01-27-2022 Fluticasone-Um eclidin-Vilanter (Trelegy Ellipta) 100-62.5-25 mcg blister with device Active 1 INH INHALATION DAILY January 27, 2022 12:00am Start: 01-27-2022 Fluticasone-Um eclidin-Vilanter (Trelegy Ellipta) 100-62.5-25 mcg blister with device Active INHALATION January 27, 2022 12:00am Start: 01-02-2022 End: 01-31-2022 Floiegxlxxf-Ieqdrxbnj-Fqzywm er (Trelegy Ellipta) 100-62.5-25 mcg blister with device Discontinued 1 INH INHALATION DAILY 60 January 02, 2022 8:00am January 31, 2022 8:05am Start: 01-02-2022 Fluticasone-Um eclidin-Vilanter (Trelegy Ellipta) 100-62.5-25 mcg blister with device Active 1 INH INHALATION DAILY 60 January 02, 2022 8:00am Start: 07-22-2021 take 1 puff(s) by inhalation once daily TRELEGY ELLIPTA 100-62.5-25 mcg inhalati on powder Inhale 1 Puff as instructed once daily. 07/22/2021 Active Start: 11-02-2020 End: 01-02-2022 Cyntlkeitwb-Pwntfykkp-Bpesos er (Trelegy Ellipta) 100-62.5-25 mcg blister with device Discontinued 1 INH INHALATION DAILY 60 November 02, 2020 9:28am January 02, 2022 8:01am Start: 04-18-2020 End: 11-02-2020 Tcxadgazges-Fuenizzpl-Ungwtx er (Trelegy Ellipta) 100-62.5-25 mcg blister with device Discontinued 1 INH INHALATION DAILY 60 April 18, 2020 1:00am November 02, 2020 9:28am Comment on above: Inhale 1 Puff as ins tructed once daily. gabapentin 100 mg oral capsule (18 sources) Anti-epileptic Agent Start: 2 End: 3 take 100 mg by mouth three times daily Gabapentin Discontinued 100 MG PO THREE TIMES A DAY February 11, 2022 12:00am October 29, 2022 10:46am Comment on above: Take 1 capsule by [facility] three times daily for 90 days. 12 hr guaiFENesin 600 mg extended release oral tablet (1 source) Start: 2 End: 3 take 2 tablets by mouth twice daily guaiFENesin (MUCINEX) 600 mg 12 hr tablet Take 2 tablets by mouth twice daily for 5 days. 20 tablet 0 05/08/2022 05/13/2022 Comment on above: Take 2 tablets by [facility] twice daily for 5 days. lisinopril 10 mg oral tablet (20 sources) Angiotensin Converting Enzyme Inhibitor Start: 9 End: 3 take 10 mg by mouth once daily Lisinopril Discontinued 10 MG PO DAILY September 07, 2018 10:07am August 31, 2019 12:09pm Comment on above: Take 10 mg by mouth once daily. meloxicam 15 mg oral tablet (20 sources) Nonsteroidal Anti-inflammatory Drug Start: 2 End: 3 take 15 mg by mouth once daily as needed Meloxicam Discontinued 15 MG PO DAILY NEEDED February 11, 2022 12:00am February 13, 2022 8:58am Start: 07-09-2018 End: 07-11-2018 Meloxicam Discontinued 15 MG PO NEEDED July 09, 2018 1:00am July 11, 2018 9:37am Comment on above: Take 1 tablet by emanuel th once daily. With food. vslaxvgl-tot-HQ-lycopen -lutein (CENTRUM SILVER MEN) 300-600-300 mcg tab (1 source) Start: End: take 300-600 tablets by mouth once daily as needed lvarnmlr-kfn-VQ-lycope n-lutein (CENTRUM SILVER MEN) 300-600-300 mcg tab Take 1 tablet by mouth once daily as needed. 0 02/11/2022 04/07/2023 Discontinued (Duplicate Entry) Comment on above: Take 1 tablet by emanuel th once daily as needed. multivitamin (DAILY VITAMIN) tablet (3 sources) take 1 tablet by mouth once daily multivitamin (DAILY VITAMIN) tablet Take 1 tablet by mouth once daily. 0 Active Comment on above: Take 1 tablet by emanuel th once daily. Multivitamin preparation (7 sources) Start: End: take 1 tablet by mouth once daily Multivitamin Discontinued 1 TABLET PO DAILY July 09, 2018 1:00am November 21, 2020 9:44am nitroglycerin 0.4 mg sublingual tablet (20 sources) Nitrate Vasodilator Start: End: Nitroglycerin Discontinued 0.4 MG SL Q5M September 01, 2018 5:03pm October 29, 2022 10:59am Comment on above: Dissolve 0.4 mg unde r the tongue every 5 minutes as needed. pantoprazole 40 mg delayed release oral tablet (16 sources) Proton Pump Inhibitor Start: End: take 40 mg by mouth twice daily Pantoprazole Discontinued 40 MG PO TWICE A DAY 112 56 February 13, 2022 12:00am April 29, 2022 11:14am Comment on above: Take 1 tablet by emanuel th twice daily. phenazopyridine hydrochloride 200 mg oral tablet (16 sources) Start: take 1 tablet by mouth three times daily as needed phenazopyridine (PYRIDIUM) 200 mg tablet Indications: Acute cystitis with hematuria Take 1 tablet by mouth three times daily as needed. 6 tablet 0 10/26/2021 Active Comment on above: Take 1 tablet by emanuel th three times daily as needed. sucralfate 1000 mg oral tablet (16 sources) Aluminum Complex Start: End: take 1 g by mouth every six hours Sucralfate Discontinued 1 GM PO EVERY 6 HOURS 112 February 13, 2022 12:00am April 29, 2022 11:14am Comment on above: TAKE 1 TABLET BY EMANUEL TH EVERY 6 (SIX) hours ticagrelor 90 mg oral tablet (20 sources) Start: End: take 1 tablet by mouth twice daily BRILINTA 90 mg tablet Take 1 tablet by mouth twice daily. 03/14/2019 10/26/2021 Discontinued (Discontinued by another Health Care Provider) Start: 07-11-2018 End: 10-02-2018 take 90 mg by mouth twice daily Ticagrelor Discontinued 90 MG PO TWICE A DAY 180 September 07, 2018 10:07am October 02, 2018 9:25am Comment on above: Take 1 tablet by emanuel twice daily. VIT A/C/E AC/ZNOX/CUPRIC OXIDE (EYE VITAMIN AND MINERALS ORAL) (19 sources) End: 04-07-2023 VIT A/C/E AC/ZNOX/CUPRIC OXIDE (EYE VITAMIN AND MINERALS ORAL) Take by mouth once daily. 04/07/2023 Discontinued (Duplicate Entry) End: 04-07-2023 VIT A/C/E AC/ZNOX/CUPRIC OXI DE (EYE VITAMIN AND MINERALS ORAL) Take by mouth once daily. 0 04/07/2023 Discontinued (Duplicate Entry) VIT A/C/E AC/ZNO X/CUPRIC OXIDE (EYE VITAMIN AND MINERALS ORAL) Take by mouth once daily. 0 Active Comment on above: Take by mouth once d aily. Vit C,F-Io-Drhsn-Lutei n-Zeaxan (7 sources) Start: 07-09-2018 End: 08-07-2018 Vit C,Q-Cj-Sakvo-Lutein-Zeax an Discontinued 1 EACH PO DAILY July 09, 2018 1:00am August 07, 2018 10:35am vitamin B12 (7 sources) Vitamin B12 Start: 07-09-2018 End: 08-07-2018 take 1 tablet by mouth once daily Cyanocobalamin (Vitamin B-12) Discontinued 1 TABLET PO DAILY July 09, 2018 1:00am August 07, 2018 10:34am Problems Active Problems Problem Classification Problem Date Documented Da te Episodic/Chronic Abdominal hernia (1 source) Hiatal hernia; Translations: [Diaphragmatic hernia without obstruction or gangrene] Episodic Cataract (20 sources) Combined form of senile cataract; Translations: [Combined forms of age-related cataract, unspecified eye] Onset: 6 02-13-2016 Chronic Chronic obstructive pulmonary disease and bronchiectasis (20 sources) Chronic obstructive lung disease; Translations: [Chronic obstructive pulmonary disease, unspecified] Onset: 2 Chronic Coronary atherosclerosis and other heart disease (12 sources) Coronary atherosclerosis; Translations: [Atherosclerotic heart disease of [place] coronary artery without angina pectoris] Onset: 5 02-01-2019 Chronic Deficiency and other anemia (2 sources) Anemia due to blood loss; Translations: [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 Disorders of lipid metabolism (20 sources) Mixed hyperlipidemia; Translations: [Mixed hyperlipidemia] Onset: 8 Chronic Esophageal disorders (1 source) Silvia-Hare tear; Translations: [Gastro-esophageal laceration-hemorrhage syndrome] Episodic Essential hypertension (20 sources) Essential hypertension; Translations: [Essential (primary) hypertension] Onset: 6 Chronic Gastroduodenal ulcer (except hemorrhage) (3 sources) Gastric ulcer; Translations: [Gastric ulcer, unspecified as acute or chronic, without hemorrhage or perforation] 04-29-2022 Chronic Gastroduodenal ulcer (except hemorrhage) (1 source) Gastric ulcer due to Helicobacter pylori; Translations: [Acute gastric ulcer without hemorrhage or perforation] Episodic Gastrointestinal hemorrhage (6 sources) Gastrointestinal hemorrhage; Translations: [Gastrointestinal hemorrhage, unspecified] Episodic Lymphadenitis (1 source) Lymphadenopathy; Translations: [Enlarged lymph nodes, unspecified] 11-18-2023 Episodic Nonspecific chest pain (16 sources) Right sided chest pain; Translations: [Chest pain, unspecified] Episodic Other aftercare (1 source) Post-discharge follow-up; Translations: [Encounter for follow-up examination after completed treatment for conditions other than malignant neoplasm] Episodic Other eye disorders (20 sources) Bilateral vitreous floaters; Translations: [Other vitreous opacities, bilateral] Onset: 6 02-13-2016 Chronic Other gastrointestinal disorders (1 source) History of upper gastrointestinal tract hemorrhage; Translations: [Personal history of other diseases of the digestive system] Episodic Other lower respiratory disease (2 sources) Dyspnea on exertion; Translations: [Shortness of breath] 08-07-2023 Episodic Other lower respiratory disease (2 sources) Shortness of breath; Translations: [Shortness of breath] 08-07-2023 Episodic Other lower respiratory disease (1 source) Respiratory tract infection; Translations: [Other specified respiratory disorders] 04-20-2024 Episodic Other nutritional; endocrine; and metabolic disorders (1 source) Excessive thirst; Translations: [Polydipsia] 04-13-2024 Episodic Other upper respiratory infections (1 source) Chronic sinusitis; Translations: [Chronic sinusitis, unspecified] Chronic Other upper respiratory infections (1 source) Acute recurrent maxillary sinusitis; Translations: [Acute maxillary sinusitis] 11-18-2023 Episodic Pneumonia (except that caused by tuberculosis or sexually transmitted disease) (7 sources) Community acquired pneumonia; Translations: [Pneumonia, unspecified organism] 09-28-2018 Episodic Residual codes; unclassified (7 sources) Tobacco user; Translations: [Tobacco use] 09-28-2018 Episodic Respiratory failure; insufficiency; arrest (adult) (10 sources) Chronic hypoxemic respiratory failure; Translations: [Chronic respiratory failure with hypoxia] Onset: 7 Resolved: 8 08-25-2017 Chronic Screening and history of mental health and substance abuse codes (18 sources) Ex-cigarette smoker; Translations: [Personal history of nicotine dependence] Onset: 4 Episodic Substance-related disorders (20 sources) Nicotine dependence; Translations: [Nicotine dependence, unspecified, uncomplicated] Onset: 7 Resolved: 8 02-01-2019 Chronic Past or Other Problems Problem Classification Problem Date Documented Date Episodic/Chronic Blindness and vision defects (20 sources) Bilateral eye astigmatism; Translations: [Unspecified astigmatism, bilateral] Onset: 02-13-2016 02-13-2016 Episodic Coronary atherosclerosis and other heart disease (2 sources) Presence of coronary angioplasty implant and graft; Translations: [S/P right coronary artery (RCA) stent placement] Onset: 11-19-2019 Episodic Fracture of upper limb (10 sources) Fracture of interligamentous part of clavicle; Translations: [Fracture of unspecified part of left clavicle, initial encounter for closed fracture] Onset: 12-17-2016 Resolved: 08-25-2017 08-25-2017 Episodic Immunizations and screening for infectious disease (16 sources) Patient encounter status; Translations: [Encounter for immunization] Onset: 10-06-2023 04-07-2023 Episodic Influenza (2 sources) Influenza due to Influenza A virus; Translations: [Influenza due to other identified influenza virus with other respiratory manifestations] Onset: 06-30-2024 07-05-2024 Episodic Other connective tissue disease (20 sources) Trochanteric bursitis of left hip; Translations: [Trochanteric bursitis, left hip] Onset: 04-09-2022 Episodic Other fractures (2 sources) Displaced fracture of shaft of left clavicle, subsequent encounter for fracture with nonunion; Translations: [Displaced fracture of shaft of left clavicle, subsequent encounter for fracture with nonunion] Onset: 08-13-2017 Episodic Other fractures (13 sources) Fracture of multiple ribs ; Translations: [Multiple fractures of ribs, left side, subsequent encounter for fracture with routine healing] Onset: 12-17-2016 Resolved: 01-31-2022 12-17-2016 Episodic Other fractures (13 sources) Closed fracture of shaft of clavicle; Translations: [Displaced fracture of shaft of left clavicle, subsequent encounter for fracture with nonunion] Onset: 08-13-2017 Resolved: 01-31-2022 08-13-2017 Episodic Other fractures (10 sources) Closed fracture of clavicle; Translations: [Fracture of unspecified part of left clavicle, subsequent encounter for fracture with nonunion] Onset: 08-11-2017 Resolved: 08-25-2017 08-25-2017 Episodic Other lower respiratory disease (20 sources) Dyspnea; Translations: [Shortness of breath] Onset: 11-19-2019 Resolved: 01-31-2022 11-19-2019 Episodic Other lower respiratory disease (1 source) Other abnormalities of breathing; Translations: [Other abnormalities of breathing] Onset: 06-30-2024 Episodic Other nervous system disorders (20 sources) Decker's palsy; Translations: [Decker's palsy] Onset: 02-03-2022 02-03-2022 Episodic Other non-traumatic joint disorders (20 sources) Hip pain; Translations: [Pain in left hip] Onset: 04-09-2022 Episodic Other nutritional; endocrine; and metabolic disorders (1 source) Polydipsia; Translations: [Excessive thirst] Onset: 04-13-2024 Episodic Other screening for suspected conditions (not mental disorders or infectious disease) (3 sources) Encounter for screening for malignant neoplasm of prostate; Translations: [Encounter for screening for lipoid disorders] Onset: 04-13-2024 Episodic Otitis media and related conditions (2 sources) Recurrent acute serous otitis media of right middle ear; Translations: [Acute serous otitis media, recurrent, right ear] Onset: 11-28-2023 11-28-2023 Episodic Respiratory failure; insufficiency; arrest (adult) (10 sources) Acute respiratory failure; Translations: [Acute respiratory failure with hypoxia] Onset: 05-23-2017 Resolved: 08-25-2017 08-25-2017 Episodic Results Test Name Value Interpretation Reference Range Facility Cardiology Visit Reporton Cardiology Visit Report [facility] [address] [place] [address] OFFICE VISIT Date of Service: 10/13/24 MR#: [id number] Acct: [id number] Name: YARIEL HOLDER Rep #: [id number] : 1950 Provider: MARC Durant Age/Sex: 74/M Location: [facility] [place] Status: Signed HPI HPI History of Present Illness Details: Yariel Holder is a 74-year-old gentleman with a history of coronary artery disease with stenting to his proximal RCA and mid RCA. He also has a history of hypertension and nicotine dependence. Stress test in November 2022 during which no obvious ischemia. He underwent a cardiac catheterization in August of 2023, which demonstrated Nonobstructive coronary disease in the LAD and previously placed stent in the right coronary artery which is stable and patent with preserved ejection fraction. From a cardiac standpoint, patient is doing well. He does not have any chest discomfort/heaviness/tightness . He does not have any worsening symptoms of shortness of breath. This is stable, he sees pulmonary for this. He denies any PND. He does not have any orthopnea. He does not have any symptoms of congestive heart failure. He does not have any palpitations that he is aware of. He does not have any lightheadedness or dizziness. He does not have any near-syncope or syncope. He does not have any lower extremity edema. He does not have any symptoms of claudication. He notes that at home his Bp has been high but in Drs. offices it is okay. Intake Vital Signs 02/05/24 09:24 03/22/24 07:24 09/20/24 08:02 10/13/24 10:38 Height 5 ft 10 in 5 ft 10 in 5 ft 10 in 5 ft 10 in Weight: 173 lb BMI 24.8 BP 134/87 H Blood Pressure Location Lt brachial Position Sitting Respiration 18 Pulse 74 Pulse Source Monitor Intake Visit Reasons: 3 M FU Sole Edge Inker Machine Required: No Is patient in pain?: No Allergies bee venom protein (honey bee) Allergy (Verified 10/13/24 10:41) Anaphylaxis clopidogrel (From Plavix) Allergy (Verified 10/13/24 10:41) rash lactose Adverse Reaction (Verified 10/13/24 10:41) Other lisinopril Adverse Reaction (Verified 10/13/24 10:41) cough Medications ???Medication ???Instructions ???Recorded ???Confirmed ???Type xbkudljc-qye-assnw acid 0.4 1 tab PO DAILY supplement 02/11/22 10/13/24 History mg-lycopene 300 mcg-lutein 250 mcg tablet (Centrum Silver) triamcinolone acetonide 0.1 % 0.1 applic topical BID PRN rash 10/13/24 History topical cream nitroglycerin 0.4 mg sublingual 0.4 mg sublingual Q5M PRN Angina 0 10/29/22 10/13/24 Rx tablet pain #25 tabs fluticasone propionate 50 2 spray intranasal DAILY copd #16 02/12/23 10/13/24 Rx mcg/actuation nasal grams spray,suspension losartan 100 mg tablet 100 mg PO DAILY bp #90 TABLETS 10/13/24 Rx ipratropium 0.5 mg-albuterol 3 mg 3 ml inhalation Q4H PRN PRN SOB 0 01/02/24 10/13/24 Rx (2.5 mg base)/3 mL nebulization /OR WHEEZING #180 mL soln aspirin 81 mg tablet,delayed 81 mg PO DAILY PRN thin blood 01/1110/13/24 History release (Adult Aspirin Regimen) isosorbide mononitrate 30 mg 30 mg PO BID heart #180 tabs 02/0410/13/24 Rx tablet,extended release 24 hr fluticasone fur. 200 mcg-umeclid 1 inh inhalation DAILY copd #60 ea 03/22/24 10/13/24 Rx 62.5 mcg-vilant 25 mcg inhalat.powder (Trelegy Ellipta) carvedilol 6.25 mg tablet 12.5 mg PO BID heart 06/28/2409/03 History atorvastatin 40 mg tablet 40 mg PO DAILY hld #90 tabs 10/13/24 Rx albuterol sulfate 90 mcg/actuation 2 puff inhalation Q4H #8.5 grams 09/20/24 10/13/24 Rx aerosol inhaler (Ventolin HFA) azithromycin 250 mg tablet 250 mg PO DIRECTED 10/13/2409/03 History prednisone 10 mg tablet mg PO 10/13/24 10/13/24 History Have you fallen in the past year?: No PFSH Medical History Influenza A COPD exacerbation Stopped smoking with greater than 40 pack year history Anemia History of steroid therapy Hiatal hernia History of stress test HTN (hypertension) Heart attack Hyperlipidemia Nicotine dependence Essential (primary) hypertension Atherosclerotic heart disease of [place] coronary artery without angina pectoris CAP (community acquired pneumonia) Tobacco dependence in remission Tobacco abuse COPD (chronic obstructive pulmonary disease) Surgical History Status post cardiac surgery History of shoulder surgery History of coronary artery stent placement (07/10/18) Family History Mother CVA (cerebral vascular accident) Father Heart disease Social History ... [facility] ([facility]WS ) YARIEL HOLDER ([id number]) 1950 M Date Time Provider Department 10/12/24 8:00 AM [facility] During your visit today, we recorded the following information about you: Pulse Blood pressure Weight 74/minute 116/80 78.5 kg Anh Epps, [facility] 10/12/2024 8:24 AM Addendum This is a 74 year old male who presents today with: Patient presents with: 6 Month Exam HISTORY OF PRESENT ILLNESS: Yariel Holder is a 74 year old male. Patient presents with: 6 Month Exam Juan is a 74-year-old male with a history of COPD, presenting for an annual wellness visit and evaluation of dyspnea. Annual Wellness Exam: - Denies recent weight loss or gain, fever, chills, headaches, changes in hearing or vision, neck swelling, chest pain, leg swelling, orthopnea, palpitations, heartburn, nausea, emesis, diarrhea, constipation, dysuria, hematuria, excessive thirst, syncope, seizures, tremors, hopelessness, or suicidal ideation. - Denies interest in colonoscopy, shingles vaccine, or COVID-19 vaccine. - Drinks approximately 3 gallons of iced tea daily; avoids water unless boiled. 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 - Considering purchasing an [employer] aircraft. COPD: - Persistent dyspnea, exacerbated by humidity. - Uses portable oxygen canister PRN. - Has not used nebulizer in several months. - Denies recent increase in Trelegy dosage. - Reports cough, but denies wheezing. - Recent CT scan in April. PAST MEDICAL HISTORY: PAST MEDICAL HISTORY Diagnosis Date HLD (hyperlipidemia) HTN (hypertension) Pneumothorax on left 12/09/2016 small apical associated with trauma multiple rib fractures RSV (acute bronchiolitis due to respiratory syncytial virus) 05/19/2017 admitted through ED with SOB, cough, hypoxia SaO2 82%. CXR hyperinflation. Tx duonebs, IV Solu Medrol. discharged 05/21/17 on prednison taper SVT (supraventricular tachycardia) ([facility]) occurred following chest trauma with multiple rib fractures Tobacco use disorder PAST SURGICAL HISTORY Procedure Laterality Date EGD W/O BRSH SPEC VARICIES INJ N/A 02/12/2022 [facility] EXTRACTION ERUPTED TOOTH full dental extraction TONSILLECTOMY PRIMARY/SECONDARY Tonsillectomy XCAPSL CTRC RMVL INSJ IO LENS PROSTH W/O ECP Right 06/17/[address] Lizama ALLERGIES Bee Sting and Milk MEDICATIONS Current Outpatient Medications Medication Sig TRELEGY ELLIPTA 200-62.5-25 mcg inhalation powder Inhale 1 puff as instructed once daily. fluticasone (FLONASE) 50 mcg/actuation nasal spray Use 2 sprays in each nostril once daily. ipratropium-albuterol (DUONEB) 0.5 mg-3 mg(2.5 mg base)/3 mL nebu Inhale 3 mL as instructed every 6 hours as needed for wheezing/shortness of breath. albuterol HFA (PROAIR HFA) 90 mcg/actuation inhaler Inhale 2 Puffs as instructed every 6 hours as needed. carvedilol (COREG) 12.5 mg tablet Take 1 tablet by mouth two times a day. losartan (COZAAR) 100 mg tablet Take 100 mg by mouth once daily. isosorbide mononitrate ER (IMDUR) 30 mg 24 hr tablet Take 30 mg by mouth two times a day. triamcinolone acetonide (KENALOG) 0.1 % cream Apply 1 application to affected area twice daily. TRELEGY ELLIPTA 100-62.5-25 mcg inhalation powder Inhale 1 Puff as instructed once daily. atorvastatin (LIPITOR) 40 mg tablet Take 40 mg by mouth once daily. nitroglycerin sublingual (NITROQUICK) 0.4 mg SL tablet Dissolve 0.4 mg under the tongue every 5 minutes as needed. EPINEPHrine (EPIPEN 2-SIDNEY) 0.3 mg/0.3 mL auto-injector Inject 0.3 mL intramuscularly as needed. multivitamin tablet Take 1 tablet by mouth once daily. No current facility-administered medications for this visit. FAMILY HISTORY Problem Relation Age of Onset No Ocular Disease Father Alcohol/Drug Father Cataract Mother Diabetes Mother Social History Tobacco Use Smoking status: Some Days Current packs/day: 0.00 Average packs/day: 0.1 packs/day for 40.0 years (4.0 ttl pk-yrs) Types: Cigarettes Start date: 04/28/1977 Last attempt to quit: 04/28/2017 Years since quittin.4 Smokeless tobacco: Never Tobacco comments: 3 per day Substance Use Topics Alcohol use: No Drug use: No REVIEW OF SYSTEMS Constitutional: (-) weight loss, (-) weight gain, (-) fever, (-) chills Head: (-) headaches Eyes: (-) vision changes Ears/Nose/Mouth/Throat: (-) hearing changes Neck: (-) neck swelling Cardiovascular: (-) palpitations, (-) peripheral edema Respiratory: (+) dyspnea, (+) cough, (-) wheeze, (-) orthopnea Gastrointestinal: (-) heartburn, (-) nausea, (-) vomiting, (-) diarrhea, (-) constipation Genitourinary: (-) dysuria, (-) hematuria Musculoskeletal: (+) joint pain Neurological: (-) syncope, (-) seizures, (-) tremors Psychiatric: (-) hopelessness, (-) suicidal ideation Endocrine: (+) polydipsia (more content not included)... Normal [facility] Pulmonary Visit Reporton Pulmonary Visit Report [facility] Medicine of [address] [place] [address] OFFICE VISIT Date of Service: 09/20/24 MR#: [id number] Acct: [id number] Name: YARIEL HOLDER Rep #: [id number] : 1950 Provider: ROSA ISELA Gann Age/Sex: 74/M Location: [facility] [place] Status: Signed Assessment and Plan Assessment and Plan (1) COPD (chronic obstructive pulmonary disease): Status: Chronic Qualifiers: COPD type: unspecified COPD Qualified Code(s): J44.9 - Chronic obstructive pulmonary disease, unspecified Plan: He does not appear to be an exacerbation of COPD today. No medication change, continue Trelegy. No indication for antibiotics or steroids, however the patient was asking for antibiotics to help with his sinus pressure. No additional testing at this time. Follow-up in the office in 4 months. (2) Stopped smoking with greater than 40 pack year history: Status: Chronic Plan: Continue to encourage complete smoking cessation. LDCT due April 2025, ordered accordingly. (3) Seasonal allergies: Status: Acute Plan: New. I believe the patient's sinus pressure he is experiencing is related to seasonal allergies that are not being treated. I suggested he return to using Flonase daily. I added an [id number] antihistamine. Also encouraged him to utilize Mucinex twice daily. Orders: Orders Low Dose CT Lung Screening 04/11/25 F17.200 - Nicotine dependence, unspecified, uncomplicated, Z87.891 - Personal history of nicotine dependence Medications: New loratadine 10 mg PO DAILY 90 tabs 3RF Refilled albuterol sulfate 90 mcg/actuation (Ventolin HFA) 2 puffs inhalation Q4H 8.5 grams 5RF Z87.891 - Personal history of nicotine dependence Plan Details Additional Comments: This note was generated with [employer] 3D dictation software. It may contain incorrect words, spelling, and punctuation that were not noted in checking the note before signing. Follow Up: 4 Months HPI 6 M FU Chief Complaint: Test results HPI Comments Details: This patient presents to the office today for routine follow-up of his COPD and to discuss test results. He is ambulatory and currently on room air. He has not recently been seen in the ED or urgent care for any respiratory illness. He was diagnosed with influenza approximately 3 weeks ago. He was treated with an antibiotic by his [facility] provider. He is compliant with use of Trelegy 1 puff daily. He does report rinsing his mouth out after each use. He denies any medication side effect such as sore throat or thrush. He does utilize albuterol rescue inhaler 2-3 times daily. He is now experiencing shortness of breath that is worse with exertion. He reports a daily cough productive of white-colored sputum, describes it as thick. He denies any hemoptysis. He has wheezing but denies any chest tightness, chest pain or palpitations. He is also experiencing sinus congestion and pressure. He has not had any fever, chills or body aches. He has resumed smoking and is smoking occasionally now. Test results personally viewed the patient: Low-dose CT lung screen completed on April 15, 2024. Chronic interstitial changes noted in both lungs. No suspicious noncalcified mass or nodule. Recommendation is to continue screening LDCT in 12 months. Intake Vital Signs 03/22/24 07:24 09/20/24 08:02 Height 5 ft 10 in 5 ft 10 in Weight: 172 lb 4 oz BMI 24.7 BP 143/90 H Blood Pressure Location Rt brachial Position Sitting Respiration 16 Pulse 78 Pulse Source Monitor Temp 97.5 F L Temperature Source Temporal Artery Pulse Oximetry (%) 92 Oxygen Delivery Method room air Intake Visit Reasons: 6 M FU Chief Complaint: Annual Sole Edge Inker Machine Required: No Is patient in pain?: No Allergies bee venom protein (honey bee) Allergy (Verified 09/20/24 08:53) Anaphylaxis clopidogrel (From Plavix) Allergy (Verified 09/20/24 08:53) rash lactose Adverse Reaction (Verified 09/20/24 08:53) Other lisinopril Adverse Reaction (Verified 09/20/24 08:53) cough Medications ???Medication ???Instructions ???Recorded ???Confirmed ???Type yeuxyvjm-itz-juinb acid 0.4 1 tab PO DAILY supplement 02/11/22 09/20/24 History mg-lycopene 300 mcg-lutein 250 mcg tablet (Centrum Silver) triamcinolone acetonide 0.1 % 0.1 applic topical BID PRN rash 09/20/24 History topical cream nitroglycerin 0.4 mg sublingual 0.4 mg sublingual Q5M PRN Angina 0 10/29/22 09/20/24 Rx tablet pain #25 tabs fluticasone propionate 50 2 spray intranasal DAILY copd #16 02/12/23 09/20/24 Rx mcg/actuation nasal grams spray,suspension losartan 100 mg tablet 100 mg PO DAILY bp #90 TABLETS 09/20/24 Rx ipratropium 0.5 mg-albuterol 3 mg 3 ml inhalation Q4H PRN PRN S (more content not included)... [facility] [facility] Tele[facility] (FAMPWS) YARIEL HOLDER ([id number]) 1950 M Date Time Provider Department 07/08/24 [facility] EP[facility] During your visit today, we recorded the following information about you: Vida Miranda MA 07/08/2024 4:03 PM Signed Type of form: FMLA Form received via walk in When form is completed, Fax form to Form has been forwarded to Nurse Practitioner: TIANA Morales Jacqueline A, APRN.LUZ MARINA 07/08/2024 5:23 PM Signed Please clarify with patient exactly what dates he missed work. I do want to mess this up and have him within unexcused absence. I will complete it tomorrow as soon as I get that information. Vida Miranda MA 07/09/2024 9:44 AM Signed Left message for patient to return call. Tiana Morgan Lisa, MA 07/12/2024 12:22 PM Signed Patient stopped by office. Dates are 06/28/24 to present Vida Miranda MA July 12, 2024 12:22 PM Allergies As of Date: 07/08/2024 Noted Allergy Reaction BEE STING 02/12/2016 10 - Anaphylaxis MILK 02/12/2016 14 - Other: See Comments Comments: sneezing with any dairy product Date Reviewed: 04/20/2024 Reviewed by: Kayla Humphrey APRN.FUNDRAISING SALE REPRESENTATIVE - Fully Assessed Reason for Visit: Forms [913] Prescriptions as of 07/20/2024 - ipratropium-albuterol (DUONEB) 0.5 mg-3 mg(2.5 mg base)/3 mL nebu Inhale 3 mL as instructed every 6 hours as needed for wheezing/shortness of breath. - benzonatate (TESSALON PERLE) 100 mg capsule Take 1 capsule by mouth three times a day as needed for up to 15 days. - albuterol HFA (PROAIR HFA) 90 mcg/actuation inhaler Inhale 2 Puffs as instructed every 6 hours as needed. - carvedilol (COREG) 12.5 mg tablet Take 1 tablet by mouth two times a day. - losartan (COZAAR) 100 mg tablet Take 100 mg by mouth once daily. - isosorbide mononitrate ER (IMDUR) 30 mg 24 hr tablet Take 30 mg by mouth once daily. - triamcinolone acetonide (KENALOG) 0.1 % cream Apply 1 application to affected area twice daily. - TRELEGY ELLIPTA 100-62.5-25 mcg inhalation powder Inhale 1 Puff as instructed once daily. - atorvastatin (LIPITOR) 40 mg tablet Take 40 mg by mouth once daily. - nitroglycerin sublingual (NITROQUICK) 0.4 mg SL tablet Dissolve 0.4 mg under the tongue every 5 minutes as needed. - EPINEPHrine (EPIPEN 2-SIDNEY) 0.3 mg/0.3 mL auto-injector Inject 0.3 mL intramuscularly as needed. - multivitamin tablet Take 1 tablet by mouth once daily. Problem List As Of Date 07/08/2024 Noted Resolved Combined form of senile cataract [H25.819] 02/13/2016 Astigmatism of both eyes [H52.203] 02/13/2016 Vitreous floaters of both eyes [H43.393] 02/13/2016 Essential hypertension [I10] 02/26/2016 S/P cataract extraction and insertion of intrao*07/02/2016 08/25/2017 Fracture of multiple ribs of left side with rou*12/17/2016 01/31/2022 Closed fracture of interligamentous part of lef*12/17/2016 08/25/2017 Chronic respiratory failure with hypoxia (HCC) *12/17/2016 08/25/2017 Tobacco dependence [F17.200] 12/17/2016 08/25/2017 Acute respiratory failure with hypoxia (HCC) [J*05/23/2017 08/25/2017 Closed displaced fracture of left clavicle with*08/11/2017 08/25/2017 Closed displaced fracture of shaft of left clav*08/13/2017 01/31/2022 HLD (hyperlipidemia) [E78.5] 08/25/2017 S/P right coronary artery (RCA) stent placement*04/23/2019 SOB (shortness of breath) [R06.02] 11/19/2019 01/31/2022 Chronic obstructive pulmonary disease (HCC) [J4*10/19/2021 Bronchiectasis without complication (HCC) [J47.*10/19/2021 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 Left hip pain [M25.552] 04/09/2022 Trochanteric bursitis of left hip [M70.62] 04/09/2022 Other emphysema (HCC) [J43.8] 10/06/2023 Screening for lung cancer [Z12.2] 10/06/2023 Encounter Status:Closed by VIDA MIRANDA on 07/20/24 [facility] CNOVon 07-05-2024 CNOV Office Visit (FAMPWS ) DAMIRJASON SANDHUYARIEL R ([id number]) 1950 M Date Time Provider Department 07/05/24 9[facility]20 [facility] your visit today, we recorded the following information about you: Temperature Pulse Blood pressure Weight 97.7 degrees 68/minute 118/68 80.3 kg Anh Epps, JOSELITO.[facility] 07/05/2024 9:59 AM Signed This is a 74 year old male who presents today with: No chief complaint on file. HISTORY OF PRESENT ILLNESS: Yariel Holder is a 74 year old male. No chief complaint on file. Got sick 2 weeks ago Took Medication as prescribed. Dx with influenza. had it too Feeling very fatigued and SOB especially with exertion. Cough better. No headache. Body aches are better. PAST MEDICAL HISTORY: PAST MEDICAL HISTORY Diagnosis Date HLD (hyperlipidemia) HTN (hypertension) Pneumothorax on left 12/09/2016 small apical associated with trauma multiple rib fractures RSV (acute bronchiolitis due to respiratory syncytial virus) 05/19/2017 admitted through ED with SOB, cough, hypoxia SaO2 82%. CXR hyperinflation. Tx duonebs, IV Solu Medrol. discharged 05/21/17 on prednison taper SVT (supraventricular tachycardia) ([facility]) occurred following chest trauma with multiple rib fractures Tobacco use disorder PAST SURGICAL HISTORY Procedure Laterality Date EGD W/O BRSH SPEC VARICIES INJ N/A 02/12/2022 [facility] EXTRACTION ERUPTED TOOTH full dental extraction TONSILLECTOMY PRIMARY/SECONDARY Tonsillectomy XCAPSL CTRC RMVL INSJ IO LENS PROSTH W/O ECP Right 06/17/[address] Lizama ALLERGIES Bee Sting and Milk MEDICATIONS Current Outpatient Medications Medication Sig albuterol HFA (PROAIR HFA) 90 mcg/actuation inhaler Inhale 2 Puffs as instructed every 6 hours as needed. TRELEGY ELLIPTA 100-62.5-25 mcg inhalation powder Inhale 1 Puff as instructed once daily. ipratropium-albuterol (DUONEB) 0.5 mg-3 mg(2.5 mg base)/3 mL nebu Inhale 3 mL as instructed every 6 hours as needed for wheezing/shortness of breath. carvedilol (COREG) 12.5 mg tablet Take 1 tablet by mouth two times a day. losartan (COZAAR) 100 mg tablet Take 100 mg by mouth once daily. isosorbide mononitrate ER (IMDUR) 30 mg 24 hr tablet Take 30 mg by mouth once daily. triamcinolone acetonide (KENALOG) 0.1 % cream Apply 1 application to affected area twice daily. atorvastatin (LIPITOR) 40 mg tablet Take 40 mg by mouth once daily. nitroglycerin sublingual (NITROQUICK) 0.4 mg SL tablet Dissolve 0.4 mg under the tongue every 5 minutes as needed. EPINEPHrine (EPIPEN 2-SIDNEY) 0.3 mg/0.3 mL auto-injector Inject 0.3 mL intramuscularly as needed. multivitamin tablet Take 1 tablet by mouth once daily. No current facility-administered medications for this visit. FAMILY HISTORY Problem Relation Age of Onset No Ocular Disease Father Alcohol/Drug Father Cataract Mother Diabetes Mother Social History Tobacco Use Smoking status: Some Days Current packs/day: 0.00 Average packs/day: 0.1 packs/day for 40.0 years (4.0 ttl pk-yrs) Types: Cigarettes Start date: 04/28/1977 Last attempt to quit: 04/28/2017 Years since quittin.1 Smokeless tobacco: Never Tobacco comments: 3 per day Substance Use Topics Alcohol use: No Drug use: No WBC 13.4, Hgb 15.2, Hct 46, platelets 106 Na 140, K+ 4.5, BUN 17, creat. 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 PHYSICAL EXAM: Physical Exam Vitals reviewed. Constitutional: Appearance: Normal appearance. HENT: Head: Normocephalic. Cardiovascular: Rate and Rhythm: Normal rate and regular rhythm. Pulses: Normal pulses. Heart sounds: Normal heart sounds. Comments: Very distant heart sounds, difficult to ausculatate Pulmonary: Breath sounds: No wheezing, rhonchi or rales. Comments: Bronchial and chuy. Bases absent lung sounds Musculoskeletal: General: Normal range of motion. Comments: Moves all ext. And walks w/o assistive device Skin: General: Skin is warm. Comments: dusky Neurological: Mental Status: He is alert. LABS: ASSESSMENT/PLAN: 1. Influenza A - ICD9: 487.1, ICD10: J10.1 (primary diagnosis) Over 7 days- now with COPD exacerbation - AZITHROMYCIN 250 MG TABLET 2. Asthma with COPD with exacerbation (HCC) - ICD9: 493.22, ICD10: J44.1 - acute exacerbation - Avoidance of triggers recommended - AZITHROMYCIN 250 MG TABLET for 5 days - PREDNISONE 20 MG TABLET for 5 days - BENZONATATE 100 MG CAPSULE 3 times a day as needed - ALBUTEROL SULFATE HFA 90 MCG/ACTUATION AEROSOL INHALER - Return to work Friday if able Discussed treatment plan and patient voices (more content not included)... Normal [facility] Culture, Blood (WB)on 2024 CUB Blood cultures x2, f rom two different sites No growth in 5 days. Normal [facility] Comment on above: Performed By: #### L 100.0100, L500.2500, M200.1000, L503.6005, L501.4020 #### [facility] Laboratory [address] [place], [address] Discharge Instructionon 06-12 Discharge Instruction [facility] Medical Records Department [address] [place] [address] Instructions for Home/Discharge Instructions 06/30/24 1116 MR#: [id number] Acct: [id number] Name: YARIEL HOLDER Rep #: [id number] : 1950 74 From: Aron Rich MD PCP: MARC Iglesias Status:ADM IN Discharge Instructions Diet Discharge Diet: No restrictions DC O2, CPAP, BIPAP needs Home O2 Discharge instructions: No Dressing / Incision Discharge Activity: Return to Normal Activity Weight Bearing Status: Weight bearing as tolerated Dressing / Incision Call your doctor if you observe: Fever of 101 or Higher, Coldness, Increased Pain, Numbness or Tingling, Change in Color, Inability to urinate, Inability to have a bowel movement, Shortness of breath, Dizziness, Fainting spells, Swelling in the ankles, Chest pain, Prolonged hiccupping, Increased palpitations (irregular heartbeat) and Calf discomfort Follow Up Care When: IN 2 WEEKS Test Results: Test results from this visit will be discussed in further detail at your follow-up appointment, if applicable. Discharge Plan Admission Admit Date/Time: 06/28/24 05:29 Attending Provider: Aron Rich Primary Care Provider: Silverio Ponce Consulting Providers: Barrie Hameed Instructions Additional Instructions / Restrictions: Follow-up with [facility] senior technical specialist Dr. Rose Ryan Discharge Orders/Prescriptions Prescriptions: New doxycycline monohydrate 100 mg Capsule 100 mg PO BID 5 Days Qty: 10 0RF dextromethorphan-guaifenesin 60-1,200 mg tablet extended release 12 hr 1 tab PO BID 7 Days Qty: 14 0RF oseltamivir 75 mg capsule 75 mg PO BID 3 Days Qty: 6 0RF prednisone 20 mg tablet 40 mg PO DAILY 5 Days Qty: 10 0RF Continued fluticasone propionate 50 mcg/actuation spray,suspension 2 spray intranasal DAILY Qty: 16 3RF nitroglycerin 0.4 mg tablet, sublingual 0.4 mg Sublingual Q5M PRN (Reason: Angina pain) Qty: 25 3RF aspirin [Adult Aspirin Regimen] 81 mg tablet,delayed release (DR/EC) 81 mg PO DAILY PRN (Reason: thin blood) isosorbide mononitrate 30 mg tablet extended release 24 hr 30 mg PO BID Qty: 180 3RF Trelegy Ellipta 200-62.5-25 mcg blister with device 1 inh inhalation DAILY Qty: 60 11RF triamcinolone acetonide 0.1 % cream 0.1 applic TOPICAL BID PRN (Reason: rash) Patient Comments: Apply 1 application to affected area twice daily. Centrum Silver 0.4 mg-300 mcg- 250 mcg Tablet 1 tab PO DAILY carvedilol 6.25 mg tablet 12.5 mg PO BID atorvastatin 40 mg tablet 40 mg PO DAILY Qty: 90 3RF losartan 100 mg tablet 100 mg PO DAILY Qty: 90 3RF ipratropium-albuterol 0.5 mg-3 mg(2.5 mg base)/3 mL solution for nebulization 3 ml inhalation Q4H PRN PRN (Reason: SOB /OR WHEEZING) Qty: 180 11RF albuterol sulfate [Ventolin HFA] 90 mcg/actuation HFA aerosol inhaler 2 puff INHALATION Q4H Qty: 8.5 5RF Referrals / Follow Up: Silverio Ponce PA [Primary Care Provider] - In 1 Week Disposition Disposition (needs filled in before D/C Order can be placed): Home, Self Care 06/30/24 1124 Aron Rich MD CC: Dr. Barrie Hameed DO; MARC Iglesias Signed ADDENDUM by Dr. Aron Rich MD on 06/30/24 at 1124 I have reviewed the oxygen testing, and this patient qualifies for the home equipment and portability. The patient is mobile in the home and the community. 06/30/241123 Aron Rich MD cc: Dr. Barrie Hameed DO; MARC Iglesias * Signed Normal [facility] CBC W/Diff, Automatedon 02- Absolute Lymph 0.55 X10 3/uL Low 0.83-4.51 [facility] Comment on above: Performed By: #### L 100.0100, L500.2500, M200.1000, L503.6005, L501.4020 #### [facility] [address] [place], [address] Absolute Neut 11.8 X10 3/uL High 2.0-7.7 [facility] Comment on above: Performed By: #### L 100.0100, L500.2500, M200.1000, L503.6005, L501.4020 #### [facility] [address] [place], [address] Basophils/100 WBC (Bld) 0.1 % Normal 0-1 [facility] Comment on above: Performed By: #### L 100.0100, L500.2500, M200.1000, L503.6005, L501.4020 #### [facility] [address] [place], [address] Eosinophils/100 WBC (Bld) 0.0 % Normal 0-5 [facility] Comment on above: Performed By: #### L 100.0100, L500.2500, M200.1000, L503.6005, L501.4020 #### [facility] [address] [place], [address] Erythrocyte distribution width (RBC) [Ratio] 14.5 % Normal 11.6-14.6 [facility] Comment on above: Performed By: #### L 100.0100, L500.2500, M200.1000, L503.6005, L501.4020 #### [facility] [address] [place], [address] Hematocrit (Bld) [Volume fraction] 46.0 % Normal 40-54 [facility] Comment on above: Performed By: #### L 100.0100, L500.2500, M200.1000, L503.6005, L501.4020 #### [facility] [address] [place], [address] Hemoglobin (Bld) [Mass/Vol] 15.2 g/dL Normal 13.0-16.5 [facility] Comment on above: Performed By: #### L 100.0100, L500.2500, M200.1000, L503.6005, L501.4020 #### [facility] [address] [place], [address] IG% 0.500 Normal 0.0-0.9 [facility] Comment on above: Result Comment: IG% - Immature Granulocytes (promyelocytes, myelocytes and metamyelocytes) > 1% indicates that a LEFT SHIFT is Present. Performed By: #### L 100.0100, L500.2500, M200.1000, L503.6005, L501.4020 #### [facility] [address] [place], [address] Lymphocytes/100 WBC (Bld) 4.1 % Low 19-41 [facility] Comment on above: Performed By: #### L 100.0100, L500.2500, M200.1000, L503.6005, L501.4020 #### [facility] [address] [place], [address] MCH (RBC) [Entitic mass] 30.8 pg Normal 27.0-32.0 [facility] Comment on above: Performed By: #### L 100.0100, L500.2500, M200.1000, L503.6005, L501.4020 #### [facility] [address] [place], [address] MCHC (RBC) [Mass/Vol] 33.0 g/dL Normal 32-36 [facility] Comment on above: Performed By: #### L 100.0100, L500.2500, M200.1000, L503.6005, L501.4020 #### [facility] [address] [place], [address] MCV (RBC) [Entitic vol] 93.3 fL Normal 80-94 [facility] Comment on above: Performed By: #### L 100.0100, L500.2500, M200.1000, L503.6005, L501.4020 #### [facility] [address] [place], [address] Monocytes/100 WBC (Bld) 6.8 % Normal 0-10 [facility] Comment on above: Performed By: #### L 100.0100, L500.2500, M200.1000, L503.6005, L501.4020 #### [facility] [address] [place], [address] Neutrophils/100 WBC (Bld) 88.5 % High 47-70 [facility] Comment on above: Performed By: #### L 100.0100, L500.2500, M200.1000, L503.6005, L501.4020 #### [facility] [address] [place], [address] Nucleated RBC (Bld) [#/Vol] 0 10*3/uL Normal 0-5 [facility] Comment on above: Performed By: #### L 100.0100, L500.2500, M200.1000, L503.6005, L501.4020 #### [facility] [address] [place], [address] Platelet mean volume (Bld) [Entitic vol] 12.3 fL High 6.2-12.0 [facility] Comment on above: Performed By: #### L 100.0100, L500.2500, M200.1000, L503.6005, L501.4020 #### [facility] [address] [place], [address] Platelets (Bld) [#/Vol] 106 10*3/uL Low 150-450 [facility] Comment on above: Performed By: #### L 100.0100, L500.2500, M200.1000, L503.6005, L501.4020 #### [facility] [address] [place], [address] RBC (Bld) [#/Vol] 4.93 10*6/uL Normal 4.6-6.2 [facility] Comment on above: Performed By: #### L 100.0100, L500.2500, M200.1000, L503.6005, L501.4020 #### [facility] [address] [place], [address] RDW SD 49.5 fl High 35.1-43.9 [facility] Comment on above: Performed By: #### L 100.0100, L500.2500, M200.1000, L503.6005, L501.4020 #### [facility] [address] [place], [address] WBC (Bld) [#/Vol] 13.4 10*3/uL High 4.4-11.0 [facility] Comment on above: Performed By: #### L 100.0100, L500.2500, M200.1000, L503.6005, L501.4020 #### [facility] [address] [place], [address] Comprehensive Metabolic Prof ilon 06-29-2024 Albumin [Mass/Vol] 2.9 g/dL Low 3.2-5.0 [facility] Comment on above: Performed By: #### L 100.0100, L500.2500, M200.1000, L503.6005, L501.4020 #### [facility] [address] [place], [address] Albumin/Globulin [Mass ratio] 0.9 {ratio} Normal 0.9-2.4 [facility] Comment on above: Performed By: #### L 100.0100, L500.2500, M200.1000, L503.6005, L501.4020 #### [facility] [address] [place], [address] ALK P 77 U/L Normal 45-117 [facility] Comment on above: Performed By: #### L 100.0100, L500.2500, M200.1000, L503.6005, L501.4020 #### [facility] [address] [place], [address] ALT [Catalytic activity/Vol] 29 U/L Normal 16-61 [facility] Comment on above: Performed By: #### L 100.0100, L500.2500, M200.1000, L503.6005, L501.4020 #### [facility] [address] [place], [address] AST [Catalytic activity/Vol] 43 U/L High 15-37 [facility] Comment on above: Performed By: #### L 100.0100, L500.2500, M200.1000, L503.6005, L501.4020 #### [facility] [address] [place], [address] Bilirubin [Mass/Vol] 0.40 mg/dL Normal 0.20-1.00 [facility] Comment on above: Result Comment: For patients on eltrombopag therapy, use of Dimension [place] TBIL is not recommended. Performed By: #### L 100.0100, L500.2500, M200.1000, L503.6005, L501.4020 #### [facility] [address] [place], [address] BUN/CRE 20.7 RATIO High 10-20 [facility] Comment on above: Performed By: #### L 100.0100, L500.2500, M200.1000, L503.6005, L501.4020 #### [facility] [address] [place], [address] CA,Total 8.8 mg/dL Normal 8.5-10.1 [facility] Comment on above: Performed By: #### L 100.0100, L500.2500, M200.1000, L503.6005, L501.4020 #### [facility] [address] [place], [address] Chloride [Moles/Vol] 108 mmol/L High 98-107 [facility] Comment on above: Performed By: #### L 100.0100, L500.2500, M200.1000, L503.6005, L501.4020 #### [facility] [address] [place], [address] CO2 [Moles/Vol] 28.0 mmol/L Normal 21.0-32.0 [facility] Comment on above: Performed By: #### L 100.0100, L500.2500, M200.1000, L503.6005, L501.4020 #### [facility] [address] [place], [address] Creatinine [Mass/Vol] 0.82 mg/dL Normal 0.70-1.30 [facility] Comment on above: Result Comment: The validity of the calculated GFR GFRAA in patients over 70 years has not been determined. Clinical correlation is essential. Performed By: #### L 100.0100, L500.2500, M200.1000, L503.6005, L501.4020 #### [facility] [address] [place], [address] ECRCL 81.61 ml/min Normal [facility] Comment on above: Performed By: #### L 100.0100, L500.2500, M200.1000, L503.6005, L501.4020 #### [facility] [address] [place], [address] EST GFR - AA 118 mL/min Normal >60 [facility] Comment on above: Result Comment: Afri can [place] GFR Calc Performed By: #### L 100.0100, L500.2500, M200.1000, L503.6005, L501.4020 #### [facility] [address] [place], [address] GAP 4 Low 5-15 [facility] Comment on above: Performed By: #### L 100.0100, L500.2500, M200.1000, L503.6005, L501.4020 #### [facility] [address] [place], [address] GFR/1.73 sq M.predicted among non-blacks MDRD (S/P/Bld) [Vol rate/Area] 98 mL/min/{1.73_m2} Normal >60 [facility] Comment on above: Result Comment: Non- GFR Calc Performed By: #### L 100.0100, L500.2500, M200.1000, L503.6005, L501.4020 #### [facility] [address] [place], [address] Globulin (S) [Mass/Vol] 3.3 g/dL Normal 2.2-4.2 [facility] Comment on above: Performed By: #### L 100.0100, L500.2500, M200.1000, L503.6005, L501.4020 #### [facility] [address] [place], [address] Glucose [Mass/Vol] 129 mg/dL High 74-106 [facility] Comment on above: Result Comment: Fast ing Glucose result greater than or equal to 126 mg/dL suggests DIABETES MELLITUS per A.D.A. criteria. Performed By: #### L 100.0100, L500.2500, M200.1000, L503.6005, L501.4020 #### [facility] [address] [place], [address] Potassium [Moles/Vol] 4.5 mmol/L Normal 3.5-5.1 [facility] Comment on above: Performed By: #### L 100.0100, L500.2500, M200.1000, L503.6005, L501.4020 #### [facility] [address] [place], [address] Sodium [Moles/Vol] 140 mmol/L Normal 136-145 [facility] Comment on above: Performed By: #### L 100.0100, L500.2500, M200.1000, L503.6005, L501.4020 #### [facility] [address] [place], [address] T PROT 6.2 g/dL Low 6.4-8.2 [facility] Comment on above: Performed By: #### L 100.0100, L500.2500, M200.1000, L503.6005, L501.4020 #### [facility] [address] [place], [address] Urea nitrogen [Mass/Vol] 17 mg/dL Normal - [facility] Comment on above: Performed By: #### L 100.0100, L500.2500, M200.1000, L503.6005, L501.4020 #### [facility] [address] [place], [address] Phosphoruson 06-29-2024 Phosphate [Mass/Vol] 4.0 mg/dL Normal 2.5-4.9 [facility] Comment on above: Performed By: #### L 100.0100, L500.2500, M200.1000, L503.6005, L501.4020 #### [facility] [address] [place], [address] Basic Metabolic Profile (BMP )on 06-28-2024 BUN/CRE 11.2 RATIO Normal 10-20 [facility] Comment on above: Order Comment: 'TROP ' Serial specimen #1, #2 or #3: 1 Performed By: #### L 100.0100, L500.2500, M200.1000, L503.6005, L501.4020 #### [facility] [address] [place], [address] CA,Total 8.9 mg/dL Normal 8.5-10.1 [facility] Comment on above: Order Comment: 'TROP ' Serial specimen #1, #2 or #3: 1 Performed By: #### L 100.0100, L500.2500, M200.1000, L503.6005, L501.4020 #### [facility] [address] [place], [address] Chloride [Moles/Vol] 107 mmol/L Normal 98-107 [facility] Comment on above: Order Comment: 'TROP ' Serial specimen #1, #2 or #3: 1 Performed By: #### L 100.0100, L500.2500, M200.1000, L503.6005, L501.4020 #### [facility] [address] [place], [address] CO2 [Moles/Vol] 25.0 mmol/L Normal 21.0-32.0 [facility] Comment on above: Order Comment: 'TROP ' Serial specimen #1, #2 or #3: 1 Performed By: #### L 100.0100, L500.2500, M200.1000, L503.6005, L501.4020 #### [facility] [address] [place], [address] Creatinine [Mass/Vol] 1.16 mg/dL Normal 0.70-1.30 [facility] Comment on above: Order Comment: 'TROP ' Serial specimen #1, #2 or #3: 1 Result Comment: The validity of the calculated GFR GFRAA in patients over 70 years has not been determined. Clinical correlation is essential. Performed By: #### L 100.0100, L500.2500, M200.1000, L503.6005, L501.4020 #### [facility] [address] [place], [address] ECRCL 57.69 ml/min Normal [facility] Comment on above: Order Comment: 'TROP ' Serial specimen #1, #2 or #3: 1 Performed By: #### L 100.0100, L500.2500, M200.1000, L503.6005, L501.4020 #### [facility] [address] [place], [address] EST GFR - AA 79 mL/min Normal >60 [facility] Comment on above: Order Comment: 'TROP ' Serial specimen #1, #2 or #3: 1 Result Comment: Afri can [place] GFR Calc Performed By: #### L 100.0100, L500.2500, M200.1000, L503.6005, L501.4020 #### [facility] [address] [place], [address] GAP 7 Normal 5-15 [facility] Comment on above: Order Comment: 'TROP ' Serial specimen #1, #2 or #3: 1 Performed By: #### L 100.0100, L500.2500, M200.1000, L503.6005, L501.4020 #### [facility] [address] [place], [address] GFR/1.73 sq M.predicted among non-blacks MDRD (S/P/Bld) [Vol rate/Area] 65 mL/min/{1.73_m2} Normal >60 [facility] Comment on above: Order Comment: 'TROP ' Serial specimen #1, #2 or #3: 1 Result Comment: Non- GFR Calc Performed By: #### L 100.0100, L500.2500, M200.1000, L503.6005, L501.4020 #### [facility] [address] [place], [address] Glucose [Mass/Vol] 118 mg/dL High 74-106 [facility] Comment on above: Order Comment: 'TROP ' Serial specimen #1, #2 or #3: 1 Result Comment: Fast ing Glucose result from 100 to 125 mg/dL suggests IMPAIRED HOMEOSTASIS per A.D.A. criteria. Performed By: #### L 100.0100, L500.2500, M200.1000, L503.6005, L501.4020 #### [facility] [address] [place], [address] Potassium [Moles/Vol] 3.8 mmol/L Normal 3.5-5.1 [facility] Comment on above: Order Comment: 'TROP ' Serial specimen #1, #2 or #3: 1 Performed By: #### L 100.0100, L500.2500, M200.1000, L503.6005, L501.4020 #### [facility] [address] [place], [address] Sodium [Moles/Vol] 139 mmol/L Normal 136-145 [facility] Comment on above: Order Comment: 'TROP ' Serial specimen #1, #2 or #3: 1 Performed By: #### L 100.0100, L500.2500, M200.1000, L503.6005, L501.4020 #### [facility] [address] [place], [address] Urea nitrogen [Mass/Vol] 13 mg/dL Normal 7-18 [facility] Comment on above: Order Comment: 'TROP ' Serial specimen #1, #2 or #3: 1 Performed By: #### L 100.0100, L500.2500, M200.1000, L503.6005, L501.4020 #### [facility] [address] [place], [address] CBC W/Diff, Automatedon 02- SMEAR COMMENT SCANNED Normal [facility] Comment on above: Performed By: #### L 100.0100, L500.2500, M200.1000, L503.6005, L501.4020 #### [facility] [address] [place], [address] Chest 1 View (Portable)on Chest 1 View (Portable) [facility] Imaging Services [address] [place] [address] Chest 1 View (Portable) MR#: [id number] Acct: [id number] Name: YARIEL HOLDER Rep #: [id number] : 1950 M 74 From: Davi Whaley MD PCP: MARC Iglesias Status: REG ER Study: Chest 1 View (Portable) Date of Exam: 06/28/24 Exam# [id number] Ordering Dr: Joshua Macdonald DO PROCEDURE: CHEST 1 VIEW (PORTABLE) REASON FOR EXAM: Cough, dyspnea TECHNIQUE: Frontal and lateral views of the chest. COMPARISON: 08/07/2023 FINDINGS: The heart size is normal. Calcifications in the aortic arch. The mediastinal contour is unremarkable. Lungs are hyperinflated. No acute infiltrate. The bones are unremarkable. RAD/Chest 1 View (Portable) IMPRESSION: COPD changes with no acute cardiopulmonary disease. Reading Location: [facility] CC: Dr. Joshua Macdonald DO; MARC Iglesias [employer] Installer: Signed Normal [facility] Emergency Department Summary on 06-28-2024 Emergency Department Summary [facility] Medical Records Department [address] [place] [address] Emergency Department Summary 06/28/24 MR#: [id number] Acct: [id number] Name: YARIEL HOLDER Rep #: [id number] : 1950 74 From: Joshua Macdonald DO PCP: MARC Iglesias Status:ADM IN Location: [place] [address] HPI History of Present Illness Chief Complaint: Shortness of Breath Detail of Chief Complaint: Shortness of breath Informant: patient Narrative Narrative: Patient presents with cough and shortness of breath with her 2 days ago. He has had fever up to 102. brought him in today because his O2 saturation was down into the 70s. He does not wear home O2. He does have history of COPD and does use inhalers. Patient denies chest pain. Cough at times productive of some white phlegm. Patient has history of coronary artery disease. [facility] Medical History Stopped smoking with greater than 40 pack year history Anemia History of steroid therapy Hiatal hernia History of stress test HTN (hypertension) Heart attack Hyperlipidemia Nicotine dependence Essential (primary) hypertension Atherosclerotic heart disease of [place] coronary artery without angina pectoris CAP (community acquired pneumonia) Tobacco dependence in remission Tobacco abuse COPD (chronic obstructive pulmonary disease) Home Medications ???Medication ???Instructions ???Recorded ???Last Taken ???Type niziyssn-qpp-jygtv acid 0.4 1 tab PO DAILY 02/11/22 3 Days Ago History mg-lycopene 300 mcg-lutein 250 mcg 02/08/22 tablet (Centrum Silver) triamcinolone acetonide 0.1 % 0.1 applic topical BID PRN rash Unknown History topical cream nitroglycerin 0.4 mg sublingual 0.4 mg sublingual Q5M PRN Angina 0 10/29/22 Unknown Rx tablet pain #25 tabs fluticasone propionate 50 2 spray intranasal DAILY #16 grams 02/12/23 Unknown Rx mcg/actuation nasal spray,suspension atorvastatin 40 mg tablet 40 mg PO DAILY #90 tabs 08/23/23 U nknown Rx losartan 100 mg tablet 100 mg PO DAILY #90 TABLETS Unknown Rx ipratropium 0.5 mg-albuterol 3 mg 3 ml inhalation Q4H PRN PRN SOB 0 01/02/24 Unknown Rx (2.5 mg base)/3 mL nebulization /OR WHEEZING #180 mL soln aspirin 81 mg tablet,delayed 81 mg PO DAILY PRN thin blood 01/11 11/02 Unknown History release (Adult Aspirin Regimen) isosorbide mononitrate 30 mg 30 mg PO BID #180 tabs 02/05/24 Un known Rx tablet,extended release 24 hr albuterol sulfate 90 mcg/actuation 2 puff inhalation Q4H #8.5 grams 03/03/24 Unknown Rx aerosol inhaler (Ventolin HFA) fluticasone fur. 200 mcg-umeclid 1 inh inhalation DAILY #60 ea 03/12 06/04 Unknown Rx 62.5 mcg-vilant 25 mcg inhalat.powder (Trelegy Ellipta) carvedilol 6.25 mg tablet 12.5 mg PO BID 06/28/24 Unknown Hi story Allergy/AdvReac Type Severity Reaction Status Date / Time bee venom protein (honey bee) Allergy Anaphylaxis Verified 06/28/24 03:22 clopidogrel (From Plavix) Allergy rash Verified 06/28/24 03:22 lactose AdvReac Other Verified 06/28/24 03:22 lisinopril AdvReac cough Verified 06/28/24 03:22 Family History Mother CVA (cerebral vascular accident) Father Heart disease Surgical History Status post cardiac surgery History of shoulder surgery History of coronary artery stent placement (07/10/18) Social History Smoking Status: Current every day smoker tobacco type: cigarettes second hand exposure: Yes alcohol intake: never substance use type: does not use caffeine: No what type of physical activity do you participate in: running and weight training ROS ROS ED Review of Systems ROS Unobtainable: other Constitutional Constitutional ED: Reports fever(s) and lethargy; Denies chills, sweats or weight loss Eyes Eyes: Denies blurry vision, change in vision or diplopia ENT ENT ED: Denies rhinorrhea or sore throat Cardiovascular Cardiovascular: Denies chest pain, orthopnea or racing heartbeat Respiratory/Chest Respiratory/Chest: Reports cough, dyspnea and dyspnea on exertion; Denies orthopnea or sputum Gastrointestinal Gastrointestinal: Denies abdominal pain, diarrhea, nausea or vomiting Genitourinary Genitourinary ED: Denies dysuria, hematuria or urinary frequency Musculoskeletal Musculoskeletal: Denies arthralgias, back pain, myalgias or neck pain Integumentary Denies abscess, Abrasions or rash Neurologic Neurologic: Denies headache(s) or weakness Psychiatric Psychiatric: Denies anxiety, depression or suicidal thoughts Endocrine Endocrinology: Denies polydipsia, polyphagia or polyuria Hematologic/Lymphatic Hematologi (more content not included)... Normal [facility] Free T3on 06-28-2024 Free T3 [Mass/Vol] 1.8 pg/mL Low 2.18-3.98 [facility] Comment on above: Performed By: #### L 506.0400, L501.96424 #### [facility] [address] [place], [address] H AND P Exam - Hospitaliston 06-28-2024 H&P Exam - Hospitalist [facility] Medical Records Department [address] [place] [address] H P Exam - Hospitalist 06/28/24 0529 MR#: [id number] Acct: [id number] Name: YARIEL HOLDER Rep #: [id number] : 1950 74 From: Barrie Hameed DO PCP: MARC Iglesias Status:ADM IN Location: [facility] [place] EL963-1 HPI - General General Date of Admission: 06/28/24 Date of Service: 06/28/24 Chief Complaint: Fever, SOB and Wheezing. HPI Narrative YARIEL HOLDER, is a 74 M with a past medical history of essential hypertension; on losartan and carvedilol, hyperlipidemia; on atorvastatin, history of tobacco abuse; with subsequent COPD, history of community-acquired pneumonia, CAD; s/p PA with subsequent mid-RCA stent on baby aspirin daily plus ISMO twice daily, history of anemia, history of hiatal hernia with gastric ulcer, listed allergy to lisinopril (cough) and OA; with history of shoulder surgery who presents to [facility] ER complaining of fever, shortness of breath and wheezing. Mr. Holder reports his symptoms began approximately 2 days prior to admission with a gradual-onset of dyspnea on exertion that progressed to shortness of breath at rest with lethargy. He also admits to fevers up to 102 ???F with cough productive of whitish phlegm and his oxygen saturations dropping into the 70% range on home pulse-oximeter so they decided to come in for further evaluation and treatment. He admits his symptoms are similar to his previous AE COPD - but more severe. He denies wearing oxygen at home. He also denies associated sweats, visual changes, runny nose, sore throat, chest pain, heart racing, palpitations, abdominal pain, nausea, vomiting, diarrhea, dysuria, hematuria, arthralgias, myalgias or headache. In the ER he was initially diagnosed with AE COPD complicated by viral assay positive for Influenza A with both combining to cause Respiratory Insufficiency and he was then admitted to the general medical floor for ongoing care for a stay that is expected to extend beyond 2 midnights. [facility] Medical History Stopped smoking with greater than 40 pack year history Anemia History of steroid therapy Hiatal hernia History of stress test HTN (hypertension) Heart attack Hyperlipidemia Nicotine dependence Essential (primary) hypertension Atherosclerotic heart disease of [place] coronary artery without angina pectoris CAP (community acquired pneumonia) Tobacco dependence in remission Tobacco abuse COPD (chronic obstructive pulmonary disease) Home Medications ???Medication ???Instructions ???Recorded ???Last Taken ???Type atvlgxqf-zax-yqunr acid 0.4 1 tab PO DAILY 02/11/22 3 Days Ago History mg-lycopene 300 mcg-lutein 250 mcg 02/08/22 tablet (Centrum Silver) triamcinolone acetonide 0.1 % 0.1 applic topical BID PRN rash Unknown History topical cream nitroglycerin 0.4 mg sublingual 0.4 mg sublingual Q5M PRN Angina 0 10/29/22 Unknown Rx tablet pain #25 tabs fluticasone propionate 50 2 spray intranasal DAILY #16 grams 02/12/23 Unknown Rx mcg/actuation nasal spray,suspension atorvastatin 40 mg tablet 40 mg PO DAILY #90 tabs 08/23/23 U nknown Rx losartan 100 mg tablet 100 mg PO DAILY #90 TABLETS Unknown Rx ipratropium 0.5 mg-albuterol 3 mg 3 ml inhalation Q4H PRN PRN SOB 0 01/02/24 Unknown Rx (2.5 mg base)/3 mL nebulization /OR WHEEZING #180 mL soln aspirin 81 mg tablet,delayed 81 mg PO DAILY PRN thin blood 01/11 11/02 Unknown History release (Adult Aspirin Regimen) isosorbide mononitrate 30 mg 30 mg PO BID #180 tabs 02/05/24 Un known Rx tablet,extended release 24 hr albuterol sulfate 90 mcg/actuation 2 puff inhalation Q4H #8.5 grams 03/03/24 Unknown Rx aerosol inhaler (Ventolin HFA) fluticasone fur. 200 mcg-umeclid 1 inh inhalation DAILY #60 ea 03/12 06/04 Unknown Rx 62.5 mcg-vilant 25 mcg inhalat.powder (Trelegy Ellipta) carvedilol 6.25 mg tablet 12.5 mg PO BID 06/28/24 Unknown Hi story Allergy/AdvReac Type Severity Reaction Status Date / Time bee venom protein (honey bee) Allergy Anaphylaxis Verified 06/28/24 03:22 clopidogrel (From Plavix) Allergy rash Verified 06/28/24 03:22 lactose AdvReac Other Verified 06/28/24 03:22 lisinopril AdvReac cough Verified 06/28/24 03:22 Family History Mother CVA (cerebral vascular accident) Father Heart disease Surgical History Status post cardiac surgery History of shoulder surgery History of coronary artery stent placement (07/10/18) Social History Smoking Status: Current every day smoker tobacco type: cigarettes second hand exposure: Yes a (more content not included)... Normal [facility] L501.4020on 06-28-2024 TROPONIN-I HS 10 pg/mL Normal 3.0-78.0 [facility] Comment on above: Order Comment: 'TROP ' Serial specimen #1, #2 or #3: 1 Result Comment: Steve mayers Note: New Test Units and Gender Specific Reference Ranges. For more information see Policy Stat Procedure [place] High Sensitivity Troponin (TNIH) and attachments. Performed By: #### L 100.0100, L500.2500, M200.1000, L503.6005, L501.4020 #### [facility] [address] [place], [address] Lactic Acidon 06-28-2024 Lactate [Moles/Vol] 1.3 mmol/L Normal 0.4-1.9 [facility] Comment on above: Order Comment: Y Performed By: #### L 100.0100, L500.2500, M200.1000, L503.6005, L501.4020 #### [facility] [address] [place], [address] M100.678on 06-28-2024 M100.678 Normal Reference Ran ge = Negative FLUABV+SARS-CoV-2+RSV Pnl Resp AFSANEH+probe GeneXZapoint Instrument, PCR method FLUABV+SARS-CoV-2+RSV Pnl Resp AFSANEH+probe Copy of report sent to Infection Control Printer [id number] 06/28/24 [facility] ANDREW. FLUABV+SARS-CoV-2+RSV Pnl Resp AFSANEH+probe CRITICAL VALUE CALLED TO [facility] 06/28/24 [facility] Dario Mccann. RESULTS READ BACK BY SAME. SARS-CoV-2 (COVID 19) Negative INFLUENZA A A Positive A INFLUENZA B Negative RSV PCR Negative INFLUENZAE A Normal [facility] Comment on above: Performed By: #### L 100.0100, L500.2500, M200.1000, L503.6005, L501.4020 #### [facility] [address] [place], [address] Magnesiumon 06-28-2024 Magnesium [Mass/Vol] 2.1 mg/dL Normal 1.6-2.6 [facility] Comment on above: Performed By: #### L 501.9520, L501.5200 #### [facility] [address] [place], [address] T4 Free Directon 06-28-2024 T4 FREE DIRECT 1.03 ng/dL Normal 0.76-1.46 [facility] Comment on above: Performed By: #### L 506.0400, L501.11460 #### [facility] [address] [place], [address] Thyroid Stim Hormone (TSH)on 06-28-2024 TSH 0.193 uIU/mL Low 0.358-3.74 0 [facility] Comment on above: Performed By: #### L 501.9520, L501.5200 #### [facility] [address] [place], [address] Venous Blood Gason 5 Blood Gas Type TARYN Normal [facility] Comment on above: Performed By: #### L 9000.0810 #### [facility] [address] [place], [address] CO2 [Moles/Vol] 29 mmol/L Normal 23-33 [facility] Comment on above: Performed By: #### L 9000.0810 #### [facility] [address] [place], [address] FI02 5.0 Normal [facility] Comment on above: Performed By: #### L 9000.0810 #### [facility] [address] [place], [address] HCO3 (Bld) [Moles/Vol] 27 mmol/L High 22-26 [facility] Comment on above: Performed By: #### L 9000.0810 #### [facility] [address] [place], [address] O2 Delivery Dev Cannula Normal [facility] Comment on above: Performed By: #### L 9000.0810 #### [facility] [address] [place], [address] SITE Not entered [facility] Comment on above: Performed By: #### L 9000.0810 #### [facility] [address] [place], [address] VBG BE 0 mmol/L Normal -1.0-3.5 [facility] Comment on above: Performed By: #### L 9000.0810 #### [facility] [address] [place], [place], [address] VBG pCO2 60.0 mmHg High 41-51 [facility] Comment on above: Performed By: #### L 9000.0810 #### [facility] [address] [place], [place], [address] VBG pH 7.27 Low 7.32-7.42 [facility] Comment on above: Performed By: #### L 9000.0810 #### [facility] [address] [place], [address] VBG PO2 148 mmHg High 25-40 [facility] Comment on above: Performed By: #### L 9000.0810 #### [facility] [address] [place], [place], [address] VBG SO2 99 High 50-70 [facility] Comment on above: Performed By: #### L 9000.0810 #### [facility] [address] [place], [place], [address] CNOVon 04-20-2024 CNOV Office Visit (INTMWS ) YARIEL HOLDER ([id number]) 1950 M Date Time Provider Department 04/20/24 11:40 AM KAYLA HUMPHREY INTMWS During your visit today, we recorded the following information about you: Temperature Pulse Blood pressure Weight 99.1 degrees 73/minute 118/76 80.2 kg Kayla Humphrey, RESIDENTIAL SUBCONTRACTOR.[facility] 04/20/2024 12:08 PM Signed CC: Patient presents with: URI: 5-6 days cough moist productive with clear to yellow sputum nasal drainage is clear with some congestion usually gets treated with amoxicillin and works well HPI: Yariel Holder is a 73 year old male who presents to the office with above complaint Symptoms began about 6 days ago and are improving starting this morning. Symptoms include: Temperature elevation: No Chills: No Cough: Yes productive with clear sputum, occasionally light yellow Shortness of breath: No Fatigue: No Muscle aches: No Headache: No New loss of smell or taste: No Sore throat: No Nasal congestion: Yes Rhinorrhea: Yes, clear nasal discharge Nausea and/or vomiting: No Diarrhea: No Other Associated symptoms: ear pressure . PMH: asthma OTC meds/remedies that patient has tried: OTC cold medicine. Exposures: Sick contacts? No Family or close contacts with confirmed/probable COVID-19 in last 14 days? No Home COVID test: yes, negative Review of Systems See HPI PAST MEDICAL HISTORY Diagnosis Date HLD (hyperlipidemia) HTN (hypertension) Pneumothorax on left 12/09/2016 small apical associated with trauma multiple rib fractures RSV (acute bronchiolitis due to respiratory syncytial virus) 05/19/2017 admitted through ED with SOB, cough, hypoxia SaO2 82%. CXR hyperinflation. Tx duonebs, IV Solu Medrol. discharged 05/21/17 on prednison taper SVT (supraventricular tachycardia) (HCC) occurred following chest trauma with multiple rib fractures Tobacco use disorder PAST SURGICAL HISTORY Procedure Laterality Date EGD W/O BRSH SPEC VARICIES INJ N/A 02/12/2022 [facility] EXTRACTION ERUPTED TOOTH full dental extraction TONSILLECTOMY PRIMARY/SECONDARY Tonsillectomy XCAPSL CTRC RMVL INSJ IO LENS PROSTH W/O ECP Right 06/17/[address] Lizama ALLERGIES Bee Sting and Milk MEDICATIONS carvedilol (COREG) 12.5 mg tablet Take 1 tablet by mouth two times a day. albuterol HFA (PROAIR HFA) 90 mcg/actuation inhaler Inhale 2 Puffs as instructed every 6 hours as needed. losartan (COZAAR) 100 mg tablet Take 100 mg by mouth once daily. isosorbide mononitrate ER (IMDUR) 30 mg 24 hr tablet Take 30 mg by mouth once daily. triamcinolone acetonide (KENALOG) 0.1 % cream Apply 1 application to affected area twice daily. TRELEGY ELLIPTA 100-62.5-25 mcg inhalation powder Inhale 1 Puff as instructed once daily. atorvastatin (LIPITOR) 40 mg tablet Take 40 mg by mouth once daily. nitroglycerin sublingual (NITROQUICK) 0.4 mg SL tablet Dissolve 0.4 mg under the tongue every 5 minutes as needed. EPINEPHrine (EPIPEN 2-SIDNEY) 0.3 mg/0.3 mL auto-injector Inject 0.3 mL intramuscularly as needed. multivitamin tablet Take 1 tablet by mouth once daily. FAMILY HISTORY Problem Relation Age of Onset No Ocular Disease Father Alcohol/Drug Father Cataract Mother Diabetes Mother Social History Tobacco Use Smoking status: Some Days Current packs/day: 0.00 Average packs/day: 0.1 packs/day for 40.0 years (4.0 ttl pk-yrs) Types: Cigarettes Start date: 04/28/1977 Last attempt to quit: 04/28/2017 Years since quittin.9 Smokeless tobacco: Never Tobacco comments: 3 per day Substance Use Topics Alcohol use: No Drug use: No BP 118/76 Pulse 73 Temp 37.3 ?C (99.1 ?F) (Temporal) Wt 80.2 kg (176 lb 12.9 oz) SpO2 96% BMI 26.49 kg/m? Physical Exam Vitals reviewed. Constitutional: General: He is not in acute distress. Appearance: He is ill-appearing. He is not toxic-appearing. HENT: Head: Normocephalic and atraumatic. Right Ear: Tympanic membrane normal. Left Ear: Tympanic membrane normal. Nose: Right Sinus: No maxillary sinus tenderness or frontal sinus tenderness. Left Sinus: No maxillary sinus tenderness or frontal sinus tenderness. Mouth/Throat: Lips: [place]. Mouth: Mucous membranes are moist. Pharynx: Oropharynx is clear. Postnasal drip present. Eyes: Conjunctiva/sclera: Conjunctivae normal. Cardiovascular: Rate and Rhythm: Normal rate and regular rhythm. Heart sounds: Normal heart sounds. Pulmonary: Effort: Pulmonary effort is normal. Breath sounds: Normal breath sounds. No wheezing, rhonchi or rales. Lymphadenopathy: Cervical: No cervical adenopathy. Skin: General: Skin is warm and dry. Neurological: Mental Status: He is alert. ASSESSMENT/PLAN: 1. Respiratory infection - ICD9: 519.8, ICD10: J98.8 Symptoms and exam findings consistent with viral URI. Cough secondary to post nasal drainage. (more content not included)... Normal [facility] Low Dose CT Lung Screeningon 04-15-[address] Lung Screening [facility] Imaging Services [address] [place], [place] [address] Low Dose CT Lung Screening MR#: [id number] Acct: [id number] Name: YARIEL HOLDER Rep #: [id number] : 1950 M 73 From: Luis Fernando Woodall MD PCP: MARC Iglesias Status: REG CLI Study: Low Dose CT Lung Screening Date of Exam: 04/15 Exam# [id number] Ordering Dr: Bette Gann CAMERA CONTROL OPERATOR CAMERA CONTROL OPERATOR-C -[id number] STUDY: LOW DOSE CT LUNG CANCER SCREENING REASON FOR EXAM: Male, 73 years old. 40+ pack year history of smoking RADIATION DOSAGE (If Supplied By Facility): CTDIvol = ( 3.02 ) mGy, DLP = ( 111.74 ) mGycm TECHNIQUE: No contrast was administered. Low dose technique was utilized (average mAS-38 and kVp 120). 1.25 mm axial source images with a slice interval of 1.25-mm were reconstructed in lung windows. 2.5 mm axial source images with a slice interval of 2.5-mm were reconstructed in lung windows. 5.0 mm axial source images with a slice interval of 5.0-mm were reconstructed in soft tissue windows. COMPARISON: 02/11/2023 FINDINGS: Lung windows show the lungs to be mildly hyperexpanded. Chronic interstitial changes noted in both lung beatty with chronic bronchitis but no organized infiltrate effusion or suspicious noncalcified mass or nodule. Lung beatty show no significant interval change since the previous study. Limited soft tissue windows show stable positioning of a left subclavian pacemaker. No suspicious adenopathy. Peripheral calcifications noted in the thoracic aorta without aneurysm. There are calcified coronary vessels. Limited cuts through the upper abdomen show a small hiatal hernia. Bony structures show degenerative change CT/Low Dose CT Lung Screening IMPRESSION: Lung-RADS category 2 - Continue annual screening with LDCT in 12 months. IMPORTANT NOTES FOR USE: [facility] Lung-RADS Version 1.1 Assessment Categories Release Date: 2018 Category: Coded 0-4 bases on nodule(s) with highest degree of suspicion. Negative screen is defined as categories 1 and 2; a positive screen is defined as categories 3 and 4. Category 3 and 4A nodules that are unchanged on interval CT should be coded as category 2, and individuals returned to screening in 12 months. Category 4X: Category 3 or 4 nodules with additional imaging findings that increase the suspicion of lung cancer, such as spiculation, GGN that doubles in size in 1 year, enlarged lymph notes, etc. Category Modifiers: S (significant finding unrelated to lung cancer) Electronically Signed: John Woodall MD at 10:04 EST , CC: ROSA ISELA Gann; MARC Iglesias [employer] Installer: [facility] ([facility] ) YARIEL HOLDER ([id number]) 1950 M Date Time Provider Department 04/13/24 8:20 AM ANH EPPS [facility] During your visit today, we recorded the following information about you: Pulse Respiration Blood pressure Weight 77/minute 18/minute 116/60 82.5 kg Anh Epps APRN.[facility] 04/13/2024 8:48 AM Signed This is a 73 year old male who presents today with: Patient presents with: 6 Month Exam: Transfer of care HISTORY OF PRESENT ILLNESS: Yariel Holder is a 73 year old male. Patient presents with: 6 Month Exam: Transfer of care Blood pressure is high. In [place] he accidentally doubled up on blood pressure medications and it was much better but still 140's HTN: Patient is compliant with meds Yes Monitors bp at home: Yes Denies side effects: No. Chest pain: No. Dyspnea: Yes. Just restarted Trelegy and doing better Edema: No. Palpitations: No. Syncope: No. Headache: No. Dizziness: No. PAST MEDICAL HISTORY: PAST MEDICAL HISTORY Diagnosis Date HLD (hyperlipidemia) HTN (hypertension) Pneumothorax on left 12/09/2016 small apical associated with trauma multiple rib fractures RSV (acute bronchiolitis due to respiratory syncytial virus) 05/19/2017 admitted through ED with SOB, cough, hypoxia SaO2 82%. CXR hyperinflation. Tx duonebs, IV Solu Medrol. discharged 05/21/17 on prednison taper SVT (supraventricular tachycardia) ([facility]) occurred following chest trauma with multiple rib fractures Tobacco use disorder PAST SURGICAL HISTORY Procedure Laterality Date EGD W/O BRSH SPEC VARICIES INJ N/A 02/12/2022 [facility] EXTRACTION ERUPTED TOOTH full dental extraction TONSILLECTOMY PRIMARY/SECONDARY Tonsillectomy XCAPSL CTRC RMVL INSJ IO LENS PROSTH W/O ECP Right 06/17/[address] Lizama ALLERGIES Bee Sting and Milk MEDICATIONS Current Outpatient Medications Medication Sig albuterol HFA (PROAIR HFA) 90 mcg/actuation inhaler Inhale 2 Puffs as instructed every 6 hours as needed. losartan (COZAAR) 100 mg tablet Take 100 mg by mouth once daily. isosorbide mononitrate ER (IMDUR) 30 mg 24 hr tablet Take 30 mg by mouth once daily. triamcinolone acetonide (KENALOG) 0.1 % cream Apply 1 application to affected area twice daily. TRELEGY ELLIPTA 100-62.5-25 mcg inhalation powder Inhale 1 Puff as instructed once daily. carvedilol (COREG) 6.25 mg tablet Take 1 tablet by mouth twice daily. atorvastatin (LIPITOR) 40 mg tablet Take 40 mg by mouth once daily. nitroglycerin sublingual (NITROQUICK) 0.4 mg SL tablet Dissolve 0.4 mg under the tongue every 5 minutes as needed. EPINEPHrine (EPIPEN 2-SIDNEY) 0.3 mg/0.3 mL auto-injector Inject 0.3 mL intramuscularly as needed. multivitamin tablet Take 1 tablet by mouth once daily. No current facility-administered medications for this visit. FAMILY HISTORY Problem Relation Age of Onset No Ocular Disease Father Alcohol/Drug Father Cataract Mother Diabetes Mother Social History Tobacco Use Smoking status: Former Current packs/day: 0.00 Average packs/day: 0.1 packs/day for 40.0 years (4.0 ttl pk-yrs) Types: Cigarettes Start date: 04/28/1977 Quit date: 04/28/2017 Years since quittin.9 Smokeless tobacco: Never Tobacco comments: 3 per day Substance Use Topics Alcohol use: No Drug use: No REVIEW OF SYSTEMS GENERAL: No weight loss- some gain, no malaise or fevers/chills HEENT: Negative for frequent or significant headaches, No changes in hearing or vision. NECK: Negative for lumps, goiter, pain and significant neck swelling RESPIRATORY: + cough, no hemoptysis, wheezing, + dyspnea, + shortness of breath- getting LDCT CARDIOVASCULAR: Negative for chest pain, leg swelling, orthopnea, or palpitations GI: No nausea, vomiting, or diarrhea/constipation. No hematochezia/melena. No heartburn or reflux symptoms. : No history of dysuria, frequency or incontinence MUSCULOSKELETAL: Positive for joint pain or swelling- manageable. SKIN: Negative for lesions, rash, and itching ENDOCRINE: Negative for cold or heat intolerance, polyuria, polydipsia and goiter NEURO: No history of headaches, syncope, paralysis, seizures or tremors MOOD: Negative for depression, anxiety, or suicidal ideation. EXAM: BP 176/94 Pulse 77 Resp 18 Wt 82.5 kg (181 lb 14.1 oz) SpO2 93% BMI 27.25 kg/m? PHYSICAL EXAM: Physical Exam Vitals reviewed. Constitutional: Appearance: Normal appearance. HENT: Head: Normocephalic. Cardiovascular: Rate and Rhythm: Normal rate and regular rhythm. Pulses: Normal pulses. Heart sounds: Normal heart sounds. Pulmonary: Effort: Pulmonary effort is normal. Comments: Very poor air exchange but CTA Abdominal: General: Bowel sounds are normal. Palpations: Abdomen is soft. Musculoskeletal: General: Normal range of motion. Comments: Walks w/o (more content not included)... Normal [facility] Pulmonary Visit Reporton Pulmonary Visit Report [facility] [place] [address] [place] [address] OFFICE VISIT Date of Service: 03/22/24 MR#: [id number] Acct: [id number] Name: YARIEL HOLDER Rep #: [id number] : 1950 Provider: ROSA ISELA Gann Age/Sex: 73/M Location: [facility] [place].[facility] Status: Signed with Addenda ADDENDUM by Polina Middleton on 05/11/24 at 1114 Office Procedure Documentation entered by Polina Middleton 05/11/24 11:14: Smoking Cessation Smoking Cessation 03/22/24. Continue to encourage ongoing smoking cessation. LDCT due now, ordered accordingly. Time Spent 3-10 minutes: Yes Date cc: MARC Iglesias * Signed Assessment and Plan Assessment and Plan (1) COPD (chronic obstructive pulmonary disease): Status: Chronic Qualifiers: COPD type: unspecified COPD Qualified Code(s): J44.9 - Chronic obstructive pulmonary disease, unspecified Plan: He does not appear to be an exacerbation of COPD today. Order placed to refill Trelegy. 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 No additional testing at this time. Follow-up in the office in 6 months. Anoro encouraged contact the office with any new or worsening symptoms. (2) Stopped smoking with greater than 40 pack year history: Status: Chronic Plan: Continue to encourage ongoing smoking cessation. LDCT due now, ordered accordingly. Orders: Orders Low Dose CT Lung Screening Today F17.200 - Nicotine dependence, unspecified, uncomplicated, Z87.891 - Personal history of nicotine dependence Medications: New psjseteegjx-yzzlzkeio-ozmbehpg 200-62.5-25 mcg (Trelegy Ellipta) 1 inh inhalation DAILY 60 ea 11RF Discontinued budesonide Discontinued Reason: Order Changed 1 mg (2 mL) inhalation BID 180 mL 11RF J44.9 - Chronic obstructive pulmonary disease, unspecified HPI 4 M FU Chief Complaint: Routine follow-up HPI Comments Details: This patient presents to the office today for routine follow-up of his COPD. He is ambulatory and currently on room air. He has not recently been seen in the ED or urgent care for any respiratory illness. He has not required any antibiotics or prednisone for any breathing problems. He does utilize albuterol rescue inhaler 2-3 times daily. The patient reports that he would like Trelegy again. He states that he ran out approximately 1 month ago. Previously, this medication was too expensive, however he did find it to be very helpful. Today he is denying any difficulty with shortness of breath. He denies any cough, sputum production or hemoptysis. He has wheezing but denies any chest tightness, chest pain or palpitations. He has not had any fever, chills or body aches. He reports that he successfully quit smoking approximately 2 weeks ago. If you recall, he does have a greater than 24-xwxj-rtxc smoking history, it is unclear why he did not participate in the LDCT that was ordered for February 2024. Intake Vital Signs 11/17/23 07:44 02/05/24 09:24 03/22/24 07:24 Height 5 ft 10 in 5 ft 10 in 5 ft 10 in Weight: 175 lb 176 lb BMI 25.1 25.2 BP 159/90 H 137/86 H Blood Pressure Location Lt brachial Lt brachial Position Sitting Sitting Respiration 18 20 H Pulse 73 75 Pulse Source Monitor Monitor Temp 97.4 F L 97.3 F L Temperature Source Temporal Artery Temporal Artery Pulse Oximetry (%) 97 92 Oxygen Delivery Method room air room air Intake Visit Reasons: 4 M FU Chief Complaint: Annual Sole Edge Inker Machine Required: No Accompanied by: Self Allergies bee venom protein (honey bee) Allergy (Verified 03/22/24 08:11) Anaphylaxis clopidogrel (From Plavix) Allergy (Verified 03/22/24 08:11) rash lactose Adverse Reaction (Verified 03/22/24 08:11) Other lisinopril Adverse Reaction (Verified 03/22/24 08:11) cough Medications ???Medication ???Instructions ???Recorded ???Confirmed ???Type ajnzqlnb-ctj-krinc acid 0.4 1 tab PO DAILY 02/11/22 03/22/24 History mg-lycopene 300 mcg-lutein 250 mcg tablet (Centrum Silver) triamcinolone acetonide 0.1 % 0.1 applic topical BID 02/11/22 03/22/24 History topical cream nitroglycerin 0.4 mg sublingual 0.4 mg sublingual Q5M PRN Angina 10/29/22 03/22/24 Rx tablet pain #25 tabs fluticasone propionate 50 2 spray intranasal DAILY #16 grams 02/12/23 03/22/24 Rx mcg/actuation nasal spray,suspension atorvastatin 40 mg tablet 40 mg PO DAILY #90 tabs 08/23/23 03/22/24 Rx losartan 100 mg tablet 100 mg PO DAILY #90 TABLETS 12/08/23 03/22/24 Rx ipratropium 0.5 mg-albuterol 3 mg 3 ml inhalation Q4H PRN PRN SOB 01/02/24 03/22/24 Rx (2.5 mg base)/3 mL nebulization /OR WHEEZING #180 mL soln aspirin 81 mg tablet,delayed 81 mg PO DAILY PRN 09/ (more content not included)... Normal [facility] Cardiology Visit Reporton Cardiology Visit Report [facility] [address] [place] [address]. [address] [place] [address] OFFICE VISIT Date of Service: 02/05/24 MR#: [id number] Acct: [id number] Name: YARIEL HOLDER Rep #: [id number] : 1950 Provider: ROSA ISELA loza Age/Sex: 73/M Location: [facility] [place] Status: Signed [facility] History of Present Illness Details: This is a 73-year-old gentleman who presents here today for a cardiovascular follow-up. He was last seen in our office in November of 2020. He has a history of coronary artery disease with stenting to his proximal RCA and mid RCA. He also has a history of hypertension and nicotine dependence. From a cardiac standpoint even though he continues to do well he says that he is having shortness of breath with exertion and this is very reminiscent of what he had prior to his previous stent. He unfortunately continues to use tobacco products. Your member he did undergo a stress test in November 2022 during which no obvious ischemia was noted. He has had occasional dizziness. He underwent a cardiac catheterization in August of 2023, which demonstrated Nonobstructive coronary disease in the LAD and previously placed stent in the right coronary artery which is stable and patent with preserved ejection fraction. From a cardiac standpoint, the patient is doing well. He denies any palpitations, chest pain, pressure or heaviness. He does acknowledge worsening SOB with exertion. He states this is similar to his previous cardiac event. He is also following with pulmonology for this as well. He denies Orthopnea, and PND. He does not have bleeding issues; no blood in urine, stool or nosebleeds. He denies any decrease in energy level, myalgias, or claudication. He does not have edema, or sudden weight gain. He does acknowledge occasional lightheadedness with coughing hard. He denies dizziness, syncopal or near syncopal episodes, and headaches. He continues to smoke 1 pack/ 3 days. Intake Vital Signs 08/07/23 09:10 11/17/23 07:44 02/05/24 09:23 02/05/24 09:24 Height 5 ft 11 in 5 ft 10 in 5 ft 10 in 5 ft 10 in Weight: 197 lb BMI 28.3 BP 142/95 H Blood Pressure Location Lt brachial Position Sitting Respiration 18 Pulse 77 Pulse Source Monitor Pulse Oximetry (%) 95 Intake Visit Reasons: 6 M Sole Edge Inker Machine Required: No Is patient in pain?: No Allergies bee venom protein (honey bee) Allergy (Verified 02/05/24 09:42) Anaphylaxis clopidogrel (From Plavix) Allergy (Verified 02/05/24 09:42) rash lactose Adverse Reaction (Verified 02/05/24 09:42) Other lisinopril Adverse Reaction (Verified 02/05/24 09:42) cough Medications ???Medication ???Instructions ???Recorded ???Confirmed ???Type sgaqgdyg-njw-epydv acid 0.4 1 tab PO DAILY 02/11/22 02/05/24 History mg-lycopene 300 mcg-lutein 250 mcg tablet (Centrum Silver) triamcinolone acetonide 0.1 % 0.1 applic topical BID 02/11/22 02/05/24 History topical cream nitroglycerin 0.4 mg sublingual 0.4 mg sublingual Q5M PRN Angina 10/29/22 02/05/24 Rx tablet pain #25 tabs fluticasone propionate 50 2 spray intranasal DAILY #16 grams 02/12/23 02/05/24 Rx mcg/actuation nasal spray,suspension carvedilol 6.25 mg tablet 6.25 mg PO BID #180 tabs 02/25/23 02/05/24 Rx atorvastatin 40 mg tablet 40 mg PO DAILY #90 tabs 08/23/23 02/05/24 Rx albuterol sulfate 90 mcg/actuation 2 puff inhalation Q4H #8.5 grams 11/10/23 02/05/24 Rx aerosol inhaler (Ventolin HFA) losartan 100 mg tablet 100 mg PO DAILY #90 TABLETS 12/08/23 02/05/24 Rx budesonide 1 mg/2 mL suspension 1 mg (2 mL) inhalation BID #180 mL 01/02/24 02/05/24 Rx for nebulization ipratropium 0.5 mg-albuterol 3 mg 3 ml inhalation Q4H PRN PRN SOB 01/02/24 02/05/24 Rx (2.5 mg base)/3 mL nebulization /OR WHEEZING #180 mL soln aspirin 81 mg tablet,delayed 81 mg PO DAILY PRN 02/05/24 History release (Adult Aspirin Regimen) isosorbide mononitrate 30 mg 30 mg PO BID #180 tabs 02/05/24 02/05/24 Rx tablet,extended release 24 hr Have you fallen in the past year?: No PFSH Medical History Anemia History of steroid therapy Hiatal hernia History of stress test HTN (hypertension) Heart attack Hyperlipidemia Nicotine dependence Essential (primary) hypertension Atherosclerotic heart disease of [place] coronary artery without angina pectoris CAP (community acquired pneumonia) Tobacco dependence in remission Tobacco abuse COPD (chronic obstructive pulmonary disease) Surgical History Status post cardiac surgery History of shoulder surgery History of coronary artery stent placement (07/10/18) Family History Mother CVA (cerebral v (more content not included)... Normal [facility] CNOVon 11-28-2023 CNOV Office Visit (FAMPWS ) YARIEL HOLDER ([id number]) 1950 M Date Time Provider Department 11/28/23 8:00 AM ANH EPPS [facility] During your visit today, we recorded the following information about you: Pulse Respiration Blood pressure Weight 66/minute 16/minute 146/84 81.2 kg Anh Epps APRN.[facility] 11/28/2023 8:16 AM Signed This is a 73 year old male who presents today with: Patient presents with: Follow Up: Swollen lymph nodes HISTORY OF PRESENT ILLNESS: Yariel Holder is a 73 year old male. Patient presents with: Follow Up: Swollen lymph nodes Right ear is a little uncomfortable. Gland improved. Sinuses are better. Finished Augmentin last night. Still a little stuffy. No fever or chills. Still a cough, productive with phlegm Throat feels raw. PAST MEDICAL HISTORY: PAST MEDICAL HISTORY Diagnosis Date HLD (hyperlipidemia) HTN (hypertension) Pneumothorax on left 12/09/2016 small apical associated with trauma multiple rib fractures RSV (acute bronchiolitis due to respiratory syncytial virus) 05/19/2017 admitted through ED with SOB, cough, hypoxia SaO2 82%. CXR hyperinflation. Tx duonebs, IV Solu Medrol. discharged 05/21/17 on prednison taper SVT (supraventricular tachycardia) (HCC) occurred following chest trauma with multiple rib fractures Tobacco use disorder PAST SURGICAL HISTORY Procedure Laterality Date EGD W/O BRSH SPEC VARICIES INJ N/A 02/12/2022 [facility] EXTRACTION ERUPTED TOOTH full dental extraction TONSILLECTOMY PRIMARY/SECONDARY Tonsillectomy XCAPSL CTRC RMVL INSJ IO LENS PROSTH W/O ECP Right 06/17/[address] Dl ALLERGIES Bee Sting and Milk MEDICATIONS Current Outpatient Medications Medication Sig amoxicillin-clavulanate potassium (AUGMENTIN) 875-125 mg per tablet Take 1 tablet by mouth two times a day for 10 days. albuterol HFA (PROAIR HFA) 90 mcg/actuation inhaler Inhale 2 Puffs as instructed every 6 hours as needed. losartan (COZAAR) 100 mg tablet Take 100 mg by mouth once daily. isosorbide mononitrate ER (IMDUR) 30 mg 24 hr tablet Take 30 mg by mouth once daily. triamcinolone acetonide (KENALOG) 0.1 % cream Apply 1 application to affected area twice daily. TRELEGY ELLIPTA 100-62.5-25 mcg inhalation powder Inhale 1 Puff as instructed once daily. carvedilol (COREG) 6.25 mg tablet Take 1 tablet by mouth twice daily. atorvastatin (LIPITOR) 40 mg tablet Take 40 mg by mouth once daily. nitroglycerin sublingual (NITROQUICK) 0.4 mg SL tablet Dissolve 0.4 mg under the tongue every 5 minutes as needed. EPINEPHrine (EPIPEN 2-SIDNEY) 0.3 mg/0.3 mL auto-injector Inject 0.3 mL intramuscularly as needed. multivitamin tablet Take 1 tablet by mouth once daily. No current facility-administered medications for this visit. FAMILY HISTORY Problem Relation Age of Onset No Ocular Disease Father Alcohol/Drug Father Cataract Mother Diabetes Mother Social History Tobacco Use Smoking status: Former Packs/day: 0.10 Years: 40.00 Additional pack years: 0.00 Total pack years: 4.00 Types: Cigarettes Quit date: 04/28/2017 Years since quittin.5 Smokeless tobacco: Never Tobacco comments: 3 per day Substance Use Topics Alcohol use: No Drug use: No EXAM: BP 146/84 Pulse 66 Resp 16 Wt 81.2 kg (179 lb) SpO2 96% BMI 26.82 kg/m? PHYSICAL EXAM: Physical Exam Vitals reviewed. Constitutional: Appearance: Normal appearance. HENT: Head: Normocephalic. Comments: Right ear canal inflamed, bulging. Right nare inflamed, raw with purulent matter. Oropharnyx with red streaking. Right Ear: There is no impacted cerumen. Left Ear: There is no impacted cerumen. Neck: Comments: Paratracheal lymph node resolved, 1 tiny post-auricular lymph nodes slightly swollen Cardiovascular: Rate and Rhythm: Normal rate and regular rhythm. Heart sounds: No murmur heard. No gallop. Comments: Lat ECG 2021 w/o prolonged QT Pulmonary: Comments: Poor air exchange throughout. Clear after cough Neurological: Mental Status: He is alert. LABS: ASSESSMENT/PLAN: 1. Recurrent acute serous otitis media of right ear - ICD9: 381.01, ICD10: H65.04 (primary diagnosis) - Will begin treatment with Zithromax pack as directed 2. COPD with exacerbation (HCC) - ICD9: 491.21, ICD10: J44.1 Acute flare - Treat with medrol taper and Z sidney Discussed treatment plan and patient voices understanding. Patient's questions answered appropriately. Medications and potential side effects were discussed and patient voices understanding. Return to the office as scheduled or as needed for worsening/no improvement. Discussed treatment plan and patient voices understanding. Patient's questions answered appropriately. Medications and potential side effects were discussed and patient voices understanding. Return to the office (more content not included)... Normal [facility] 11[facility]18[facility]2023 [facility] YARIEL HOLDER ([id number]) 1950 M Date Time Provider Department 11/18/23 1:20 PM ANH EPPS [facility] During your visit today, we recorded the following information about you: Pulse Respiration Blood pressure Weight 83/minute 16/minute 148/82 80.7 kg Anh Epps, RESIDENTIAL SUBCONTRACTOR.[facility] 11/18/2023 1:44 PM Signed This is a 73 year old male who presents today with: Patient presents with: Mass: Lump on right side of neck for the last 3-4 days. Painful to touch HISTORY OF PRESENT ILLNESS: Yariel Holder is a 73 year old male. Patient presents with: Mass: Lump on right side of neck for the last 3-4 days. Painful to touch Was eating peanuts on Friday, got one stuck under plate. He got that out. When he woke up on Friday, he noticed a big lump under right mandible. Hurts up into ear and down to lump. No fever or chills. No ear pain. PAST MEDICAL HISTORY: PAST MEDICAL HISTORY Diagnosis Date HLD (hyperlipidemia) HTN (hypertension) Pneumothorax on left 12/09/2016 small apical associated with trauma multiple rib fractures RSV (acute bronchiolitis due to respiratory syncytial virus) 05/19/2017 admitted through ED with SOB, cough, hypoxia SaO2 82%. CXR hyperinflation. Tx duonebs, IV Solu Medrol. discharged 05/21/17 on prednison taper SVT (supraventricular tachycardia) (HCC) occurred following chest trauma with multiple rib fractures Tobacco use disorder PAST SURGICAL HISTORY Procedure Laterality Date EGD W/O BRSH SPEC VARICIES INJ N/A 02/12/2022 [facility] EXTRACTION ERUPTED TOOTH full dental extraction TONSILLECTOMY PRIMARY/SECONDARY Tonsillectomy XCAPSL CTRC RMVL INSJ IO LENS PROSTH W/O ECP Right 06/17/[address] Lizama ALLERGIES Bee Sting and Milk MEDICATIONS Current Outpatient Medications Medication Sig albuterol HFA (PROAIR HFA) 90 mcg/actuation inhaler Inhale 2 Puffs as instructed every 6 hours as needed. losartan (COZAAR) 100 mg tablet Take 100 mg by mouth once daily. isosorbide mononitrate ER (IMDUR) 30 mg 24 hr tablet Take 30 mg by mouth once daily. TRELEGY ELLIPTA 100-62.5-25 mcg inhalation powder Inhale 1 Puff as instructed once daily. carvedilol (COREG) 6.25 mg tablet Take 1 tablet by mouth twice daily. atorvastatin (LIPITOR) 40 mg tablet Take 40 mg by mouth once daily. nitroglycerin sublingual (NITROQUICK) 0.4 mg SL tablet Dissolve 0.4 mg under the tongue every 5 minutes as needed. EPINEPHrine (EPIPEN 2-SIDNEY) 0.3 mg/0.3 mL auto-injector Inject 0.3 mL intramuscularly as needed. multivitamin tablet Take 1 tablet by mouth once daily. triamcinolone acetonide (KENALOG) 0.1 % cream Apply 1 application to affected area twice daily. No current facility-administered medications for this visit. FAMILY HISTORY Problem Relation Age of Onset No Ocular Disease Father Alcohol/Drug Father Cataract Mother Diabetes Mother Social History Tobacco Use Smoking status: Former Packs/day: 0.10 Years: 40.00 Additional pack years: 0.00 Total pack years: 4.00 Types: Cigarettes Quit date: 04/28/2017 Years since quittin.5 Smokeless tobacco: Never Tobacco comments: 3 per day Substance Use Topics Alcohol use: No Drug use: No EXAM: BP 148/82 Pulse 83 Resp 16 Wt 80.7 kg (178 lb) SpO2 93% BMI 26.67 kg/m? PHYSICAL EXAM: Physical Exam Vitals reviewed. Constitutional: Appearance: Normal appearance. HENT: Head: Normocephalic. Comments: Right ear canal red, tympanic membrane opaque Right Ear: There is no impacted cerumen. Left Ear: Tympanic membrane, ear canal and external ear normal. There is no impacted cerumen. Nose: Rhinorrhea present. No congestion. Comments: Right nare eroded and raw Mouth/Throat: Mouth: Mucous membranes are dry. Neck: Comments: Palpable nodule under right mid mandible Cardiovascular: Rate and Rhythm: Regular rhythm. Heart sounds: Murmur heard. No gallop. Comments: Soft NICOLE @ sternal border and apex Pulmonary: Breath sounds: Normal breath sounds. Skin: General: Skin is warm and dry. Neurological: Mental Status: He is alert. LABS: reviewed labs from July ASSESSMENT/PLAN: 1. Swollen lymph nodes - ICD9: 785.6, ICD10: R59.9 (primary diagnosis) Likely infection - AMOXICILLIN 875 MG-POTASSIUM CLAVULANATE 125 MG TABLET for 10 days - Follow up in 10 days 2. Acute recurrent maxillary sinusitis - ICD9: 461.0, ICD10: J01.01 - Will begin treatment with Augmentin 875 mg PO BID for 10 days - Use saline nasal spray while on antibiotic Discussed treatment plan and patient voices understanding. Patient's questions answered appropriately. Medications and potential side effects were discussed and patient voices understanding. Return to the office as scheduled or as needed for worsening/no improvement. Anh Epps APRN.HEAD NECK SURGEON Anh Epps APRN.C (more content not included)... Normal [facility] Pulmonary Visit Reporton Pulmonary Visit Report [facility] [place] [address] [place] [address] OFFICE VISIT Date of Service: 11/17/23 MR#: [id number] Acct: [id number] Name: YARIEL HOLDER Rep #: [id number] : 1950 Provider: ROSA ISELA Gann Age/Sex: 73/M Location: [facility] [place].PMW Status: Signed Assessment and Plan Assessment and Plan (1) COPD (chronic obstructive pulmonary disease): Status: Chronic Qualifiers: COPD type: unspecified COPD Qualified Code(s): J44.9 - Chronic obstructive pulmonary disease, unspecified Plan: He does not appear to be an exacerbation of COPD today. No need for prednisone or antibiotic. Trelegy has been too expensive for him. Switching him over to budesonide nebulized and DuoNebs nebulized. I believe he will benefit from the nebulized format. He was provided with 2 weeks sample of Trelegy, as he cannot afford any medications until his next paycheck. No additional testing at this time. He was also provided with written instructions on when to take the nebulizer treatments. Contact the office for any new or worsening symptoms. An acute visit and typically be arranged within 1-2 days. Follow-up in March. (2) Stopped smoking with greater than 40 pack year history: Status: Chronic Plan: Continue to encourage complete smoking cessation. LDCT due in February, ordered previously. Follow- up in March to discuss test results. Medications: Refilled budesonide 1 mg (2 mL) inhalation BID 180 mL 11RF J44.9 - Chronic obstructive pulmonary disease, unspecified ipratropium-albuterol 0.5 mg-3 mg(2.5 mg base)/3 mL 3 mL inhalation Q4H PRN PRN 180 mL 11RF SOB /OR WHEEZING Plan Details Follow Up: 03/12/24 ([facility]) HPI 6 M FU Chief Complaint: Routine follow-up HPI Comments Details: This patient presents to the office today for routine follow-up of his COPD. He is ambulatory and currently on room air. He has not recently been seen in the ED or urgent care for any respiratory illness. He has not required any antibiotics or prednisone for any breathing problems. He is compliant with Trelegy 1 puff daily. However, he has not had any medication for the past couple days. He states that he ran out and the pharmacy told him that it is too early for refill. He also reports that this medication is very expensive, costing him between $150-$200 per month. He does utilize albuterol rescue inhaler 1-2 times daily. He does have shortness of breath that is worse with exertion. He has a cough that is productive of clear to white-colored sputum. He denies any hemoptysis. He has wheezing but denies any chest tightness, chest pain or palpitations. He has not had any fever, chills or body aches. He continues to smoke cigarettes. Currently smoking about 1 pack/day. Intake Vital Signs 02/12/23 07:50 08/07/23 09:10 08/19/23 07:11 11/17/23 07:44 Height 5 ft 11 in 5 ft 11 in 5 ft 11 in 5 ft 10 in Weight: 175 lb BMI 25.1 BP 159/90 H Blood Pressure Location Lt brachial Position Sitting Respiration 18 Pulse 73 Pulse Source Monitor Temp 97.4 F L Temperature Source Temporal Artery Pulse Oximetry (%) 97 Oxygen Delivery Method room air Intake Visit Reasons: 6 M FU Chief Complaint: Annual Sole Edge Inker Machine Required: No DME Vendor: N/A Accompanied by: Self Is patient in pain?: No Allergies bee venom protein (honey bee) Allergy (Verified 11/17/23 08:41) Anaphylaxis clopidogrel (From Plavix) Allergy (Verified 11/17/23 08:41) rash lactose Adverse Reaction (Verified 11/17/23 08:41) Other lisinopril Adverse Reaction (Verified 11/17/23 08:41) cough Medications ???Medication ???Instructions ???Recorded ???Confirmed ???Type hgykeuju-fnn-ihgkh acid 0.4 1 tab PO DAILY 02/11/22 11/17/23 History mg-lycopene 300 mcg-lutein 250 mcg tablet (Centrum Silver) triamcinolone acetonide 0.1 % 0.1 applic topical BID 02/11/22 11/17/23 History topical cream nitroglycerin 0.4 mg sublingual 0.4 mg sublingual Q5M PRN Angina 10/29/22 11/17/23 Rx tablet pain #25 tabs losartan 100 mg tablet 100 mg PO DAILY #90 tabs 12/09/22 11/17/23 Rx fluticasone propionate 50 2 spray intranasal DAILY #16 grams 02/12/23 11/17/23 Rx mcg/actuation nasal spray,suspension carvedilol 6.25 mg tablet 6.25 mg PO BID #180 tabs 02/25/23 11/17/23 Rx aspirin 81 mg tablet,delayed 81 mg PO DAILY #30 tabs 08/07/23 11/17/23 Rx release (Adult Aspirin Regimen) atorvastatin 40 mg tablet 40 mg PO DAILY #90 tabs 08/23/23 11/17/23 Rx isosorbide mononitrate 30 mg 30 mg PO DAILY #90 tabs 10/23/23 11/17/23 Rx tablet,extended release 24 hr albuterol sulfate 90 mcg/actuation 2 puff inhalation Q4H #8.5 grams 11/10/23 11/17/23 Rx aerosol inhaler (Ventolin HFA) budesonide 1 mg/2 mL suspension 1 mg (2 mL) inhalation BID # (more content not included)... Normal [facility] Absolute lymphocyte countOrd ered By: Vinh Lissy on 08-07-2023 Lymphocytes Auto (Unsp spec) [#/Vol] 2.75 10*3/uL 0.83-4.51 [facility] Automated lymphocyte count a s percentage of total leukocytesOrdered By: Vinh Lissy on 08-07-2023 Lymphocytes/100 WBC Auto (Unsp spec) 29.7 % 19-41 [facility] Basophil percentageOrdered B y: Jackson Lissy on 08-07-2023 Basophils/100 WBC (Bld) 0.9 % 0-1 [facility] Chloride [Moles/Vol] 106 mmol/L 98-107 [facility] Eosinophils/100 WBC (Bld) 1.0 % 0-5 [facility] Glucose [Mass/Vol] 92 mg/dL 74-106 [facility] Hemoglobin (Bld) [Mass/Vol] 15.8 g/dL 13.0-16.5 [facility] Monocytes/100 WBC (Bld) 8.3 % 0-10 [facility] Neutrophils (Bld) [#/Vol] 5.5 10*3/uL 2.0-7.7 [facility] Neutrophils/100 WBC (Bld) 59.8 % 47-70 [facility] Potassium [Moles/Vol] 3.8 mmol/L 3.5-5.1 [facility] Sodium [Moles/Vol] 141 mmol/L 136-145 [facility] WBC (Bld) [#/Vol] 9.3 10*3/uL 4.4-11.0 [facility] Determination of erythrocyte mean corpuscular volume (MCV)Ordered By: Vinh Lissy on 08-07-2023 MCV (RBC) [Entitic vol] 91.8 fL 80-94 [facility] Erythrocyte distribution wid th ratioOrdered By: [facility] on 08-07-2023 Erythrocyte distribution width (RBC) [Ratio] 14.6 % 11.6-14.6 [facility] Erythrocyte distribution wid th standard deviationOrdered By: [facility] on 08-07-2023 Erythrocyte distribution width (RBC) [Entitic vol] 49.4 fL 35.1-43.9 [facility] Hematocrit Auto (Bld) [Volum e fraction]Ordered By: [facility] on 08-07-2023 Hematocrit (Bld) [Volume fraction] 48.3 % 40-54 [facility] Immature granulocytes/100 WB C Auto (Bld)Ordered By: [facility] on 08-07-2023 Immature granulocytes/100 WBC (Bld) 0.300 % 0.0-0.9 [facility] Comment on above: IG% - Immature Granu locytes (promyelocytes, myelocytes and metamyelocytes) > 1% indicates that a LEFT SHIFT is Present. Laboratory - Chemistry and C hemistry - challengeOrdered By: Vinh Lissy on 08-07-2023 CO2 [Moles/Vol] 31.0 mmol/L 21.0-32.0 [facility] Urea nitrogen/Creatinine [Mass ratio] 12.3 mg/mg 10-20 [facility] Laboratory - Hematology and Cell countsOrdered By: Vinh Lissy on 08-07-2023 MCH (RBC) [Entitic mass] 30.0 pg 27.0-32.0 [facility] MCHC (RBC) [Mass/Vol] 32.7 g/dL 32-36 [facility] Nucleated RBC/100 WBC (Bld) [Ratio] 0 % 0-5 [facility] Platelet mean volume (Bld) [Entitic vol] 11.3 fL 6.2-12.0 [facility] Platelets (Bld) [#/Vol] 175 10*3/uL 150-450 [facility] No Panel InformationOrdered By: Vinh Yuan on 08-07-2023 Estimated GFR (MDRD) Amer 88 mL/min >60 [facility] Comment on above: GFR Calc Estimated GFR (MDRD) Non-Af Amer 73 mL/min >60 [facility] Comment on above: Non- GFR Calc RBC Auto (Bld) [#/Vol]Ordere d By: Vinh Yuan on 08-07-2023 RBC (Bld) [#/Vol] 5.26 10*6/uL 4.6-6.2 [facility] Serum or plasma calcium nathan urement (mass/volume)Ordered By: Vinh Yuan on 08-07-2023 Calcium [Mass/Vol] 9.0 mg/dL 8.5-10.1 [facility] Serum or plasma creatinine m easurement (mass/volume)Ordered By: Vinh Yuan on 08-07-2023 Creatinine [Mass/Vol] 1.06 mg/dL 0.70-1.30 [facility] Comment on above: The validity of the calculated GFR & GFRAA in patients over 70 years has not been determined. Clinical correlation is essential. Serum or plasma urea nitroge n measurement (mass/volume)Ordered By: Vinh Yuan on 08-07-2023 Urea nitrogen [Mass/Vol] 13 mg/dL 7-18 [facility] Thin prep Papanicolaou smear with manual screeningOrdered By: Vinh Yuan on 08-07-2023 Thin prep Papanicolaou smear with manual screening 4 5-15 [facility] US SCREENING FOR AAAon 04-10 [facility] XR Pelvis and Hip - left AP and Lateral frogon 04-03-2022 IMPRESSION: No acute pathology. [employer] Installer: SYLVAIN Transcribe Date/Time: Apr 03 2022 1:45P Dictated by : JOSE RAMOS DO This examination was interpreted and the report reviewed and electronically signed by: JOSE RAMOS DO on Apr 03 2022 1:45PM EST DIVISION OF RADIOLOGY * * *Final Report* * * DATE OF EXAM: Apr 03 2022 11:37AM WOX 5351 - XR HIP 3V PELV+ AP/LAT LT / PROCEDURE REASON: multiple diagnoses * * * * Physician Interpretation * * * * Pelvis and left hip HISTORY: Indication: Left hip pain Trochanteric bursitis of left hip TECHNIQUE: Images: XR HIP 3V PELV+ AP/LAT LT Comparison: None. RESULT: Findings: Pelvis: No fractures or dislocations are seen. Hip joints are well preserved bilaterally. Left hip: No fractures or dislocations are seen. DIVISION OF RADIOLOGY Provider, [facility] - 04/03/2022 * * *Final Report* * * DATE OF EXAM: Apr 03 2022 11:37AM WOX 5351 - XR HIP 3V PELV+ AP/LAT LT / PROCEDURE REASON: multiple diagnoses * * * * Physician Interpretation * * * * Pelvis and left hip HISTORY: Indication: Left hip pain Trochanteric bursitis of left hip TECHNIQUE: Images: XR HIP 3V PELV+ AP/LAT LT Comparison: None. RESULT: Findings: Pelvis: No fractures or dislocations are seen. Hip joints are well preserved bilaterally. Left hip: No fractures or dislocations are seen. IMPRESSION IMPRESSION: No acute pathology. [employer] Installer: SYLVAIN Transcribe Date/Time: Apr 03 2022 1:45P Dictated by : JOSE RAMOS DO This examination was interpreted and the report reviewed and electronically signed by: JOSE RAMOS DO on Apr 03 2022 1:45PM EST [facility] Radiology Study observation (narrative) [facility] XR Pelvis and Hip - left AP and Lateral frogOrdered By: [facility] Provider on 04-03-2022 [facility] Absolute lymphocyte counton 02-13-2022 Lymphocytes Auto (Unsp spec) [#/Vol] 1.70 10*3/uL 0.83-4.51 [facility] Work Phone: Basophil percentageon 2021 Basophils/100 WBC (Bld) 0.7 % 0-1 [facility] Work Phone: Chloride [Moles/Vol] 114 mmol/L 98-107 [facility] Work Phone: Eosinophils/100 WBC (Bld) 1.9 % 0-5 [facility] Work Phone: Glucose [Mass/Vol] 96 mg/dL 74-106 [facility] Work Phone: Neutrophils (Bld) [#/Vol] 4.2 10*3/uL 2.0-7.7 [facility] Work Phone: Neutrophils/100 WBC (Bld) 63.3 % 47-70 [facility] Work Phone: Potassium [Moles/Vol] 3.7 mmol/L 3.5-5.1 [facility] Work Phone: Sodium [Moles/Vol] 144 mmol/L 136-145 [facility] Work Phone: WBC (Bld) [#/Vol] 6.7 10*3/uL 4.4-11.0 [facility] Work Phone: [phone] Blood erythrocytes count (nu mber/volume)on 02-13-2022 RBC (Bld) [#/Vol] 2.62 10*6/uL 4.6-6.2 [facility] Work Phone: Blood hemoglobin measurement (mass/volume)on 02-13-2022 Hemoglobin (Bld) [Mass/Vol] 8.5 g/dL 13.0-16.5 [facility] Work Phone: Blood lymphocytes/100 leukoc yteson 02-13-2022 Lymphocytes/100 WBC (Bld) 25.4 % 19-41 [facility] Work Phone: Blood monocytes/100 leukocyt eson 02-13-2022 Monocytes/100 WBC (Bld) 8.4 % 0-10 [facility] Work Phone: Blood platelet mean volumeon 02-13-2022 Platelet mean volume (Bld) [Entitic vol] 11.0 fL 6.2-12.0 [facility] Work Phone: Determination of erythrocyte mean corpuscular volume (MCV)on 02-13-2022 MCV (RBC) [Entitic vol] 98.1 fL 80-94 [facility] Work Phone: Hematocrit Auto (Bld) [Volum e fraction]on 02-13-2022 Hematocrit (Bld) [Volume fraction] 25.7 % 40-54 [facility] Work Phone: Laboratory - Chemistry and C hemistry - challengeon 02-13-2022 CO2 [Moles/Vol] 25.0 mmol/L 21.0-32.0 [facility] Work Phone: Urea nitrogen/Creatinine [Mass ratio] 12.9 mg/mg 10-20 [facility] Work Phone: Laboratory - Hematology and Cell countson 02-13-2022 Erythrocyte distribution width (RBC) [Entitic vol] 51.0 fL 35.1-43.9 [facility] Work Phone: Erythrocyte distribution width (RBC) [Ratio] 14.6 % 11.6-14.6 [facility] Work Phone: Immature granulocytes/100 WBC (Bld) 0.300 % 0.0-0.9 [facility] Work Phone: Comment on above: IG% - Immature Granu locytes (promyelocytes, myelocytes and metamyelocytes) > 1% indicates that a LEFT SHIFT is Present. MCH (RBC) [Entitic mass] 32.4 pg 27.0-32.0 [facility] Work Phone: Nucleated RBC/100 WBC (Bld) [Ratio] 0 % 0-5 [facility] Work Phone: MCHC Auto (RBC) [Mass/Vol]on 02-13-2022 MCHC (RBC) [Mass/Vol] 33.1 g/dL 32-36 [facility] Work Phone: No Panel Informationon 02-13 Estimated Creatinine Clearance Calc 72.16 ml/min [facility] Work Phone: Estimated GFR (MDRD) Amer 127 mL/min >60 [facility] Work Phone: Comment on above: GFR Calc Estimated GFR (MDRD) Non-Af Amer 105 mL/min >60 [facility] Work Phone: Comment on above: Non- GFR Calc Platelets bldon 02-13-2022 Platelets (Bld) [#/Vol] 152 10*3/uL 150-450 [facility] Work Phone: Serum or plasma calcium nathan urement (mass/volume)on 02-13-2022 Calcium [Mass/Vol] 8.1 mg/dL 8.5-10.1 [facility] Work Phone: Serum or plasma creatinine m easurement (mass/volume)on 02-13-2022 Creatinine [Mass/Vol] 0.78 mg/dL 0.70-1.30 [facility] Work Phone: Comment on above: The validity of the calculated GFR & GFRAA in patients over 70 years has not been determined. Clinical correlation is essential. Serum or plasma urea nitroge n measurement (mass/volume)on 02-13-2022 Urea nitrogen [Mass/Vol] 10 mg/dL 7-18 [facility] Work Phone: Thin prep Papanicolaou smear with manual screeningon 02-13-2022 Thin prep Papanicolaou smear with manual screening 5 5-15 [facility] Work Phone: Basophil percentageon 2021 Bilirubin [Mass/Vol] 0.40 mg/dL 0.20-1.00 [facility] Work Phone: Comment on above: For patients on eltr ombopag therapy, use of Dimension [place] TBIL is not recommended. Protein [Mass/Vol] 4.9 g/dL 6.4-8.2 [facility] Work Phone: Direct bilirubinon 2 Bilirubin.direct [Mass/Vol] 0.13 mg/dL 0.00-0.30 [facility] Work Phone: INR in Blood by Coagulation assayon 02-12-2022 INR Coag (Bld) [Relative time] 1.1 {INR} [facility] Work Phone: Laboratory - Chemistry and C hemistry - challengeon 02-12-2022 ALP [Catalytic activity/Vol] 52 U/L 45-117 [facility] Work Phone: [phone] ALT [Catalytic activity/Vol] 17 U/L 16-61 [facility] Work Phone: Globulin (S) [Mass/Vol] 2.5 g/dL 2.2-4.2 [facility] Work Phone: Magnesium [Mass/Vol] 2.1 mg/dL 1.6-2.6 [facility] Work Phone: Laboratory - Coagulationon 1 aPTT Coag (Bld) [Time] 34.4 s 24.1-36.2 [facility] Work Phone: PT Coag (PPP) [Time] 13.6 s 11.7-14.9 [facility] Work Phone: Serum or plasma albumin nathan urement (mass/volume)on 02-12-2022 Albumin [Mass/Vol] 2.4 g/dL 3.2-5.0 [facility] Work Phone: Serum or plasma albumin/glob ulin mass ratioon 02-12-2022 Albumin/Globulin [Mass ratio] 1.0 {ratio} 0.9-2.4 [facility] Work Phone: Thin prep Papanicolaou smear with manual screeningon 02-12-2022 Thin prep Papanicolaou smear with manual screening 12 U/L 15-37 [facility] Work Phone: Absolute lymphocyte counton 02-11-2022 Lymphocytes Auto (Unsp spec) [#/Vol] 2.15 10*3/uL 0.83-4.51 [facility] Work Phone: Basophil percentageon 2021 Basophils/100 WBC (Bld) 0.6 % 0-1 [facility] Work Phone: Bilirubin [Mass/Vol] 0.40 mg/dL 0.20-1.00 [facility] Work Phone: Comment on above: For patients on eltr ombopag therapy, use of Dimension [place] TBIL is not recommended. Chloride [Moles/Vol] 112 mmol/L 98-107 [facility] Work Phone: Eosinophils/100 WBC (Bld) 1.4 % 0-5 [facility] Work Phone: Glucose [Mass/Vol] 111 mg/dL 74-106 [facility] Work Phone: Comment on above: Fasting Glucose resu lt from 100 to 125 mg/dL suggests IMPAIRED HOMEOSTASIS per A.D.A. criteria. Neutrophils (Bld) [#/Vol] 6.0 10*3/uL 2.0-7.7 [facility] Work Phone: Neutrophils/100 WBC (Bld) 66.4 % 47-70 [facility] Work Phone: [phone] Potassium [Moles/Vol] 3.8 mmol/L 3.5-5.1 [facility] Work Phone: Protein [Mass/Vol] 5.6 g/dL 6.4-8.2 [facility] Work Phone: [phone] Sodium [Moles/Vol] 146 mmol/L 136-145 [facility] Work Phone: [phone] WBC (Bld) [#/Vol] 9.1 10*3/uL 4.4-11.0 [facility] Work Phone: [phone] Blood erythrocytes count (nu mber/volume)on 02-11-2022 RBC (Bld) [#/Vol] 2.76 10*6/uL 4.6-6.2 [facility] Work Phone: Blood hemoglobin measurement (mass/volume)on 02-11-2022 Hemoglobin (Bld) [Mass/Vol] 8.8 g/dL 13.0-16.5 [facility] Work Phone: Blood lymphocytes/100 leukoc yteson 02-11-2022 Lymphocytes/100 WBC (Bld) 23.7 % 19-41 [facility] Work Phone: Blood monocytes/100 leukocyt eson 02-11-2022 Monocytes/100 WBC (Bld) 7.5 % 0-10 [facility] Work Phone: Blood platelet mean volumeon 02-11-2022 Platelet mean volume (Bld) [Entitic vol] 10.9 fL 6.2-12.0 [facility] Work Phone: Determination of erythrocyte mean corpuscular volume (MCV)on 02-11-2022 MCV (RBC) [Entitic vol] 97.5 fL 80-94 [facility] Work Phone: Hematocrit Auto (Bld) [Volum e fraction]on 02-11-2022 Hematocrit (Bld) [Volume fraction] 26.9 % 40-54 [facility] Work Phone: Laboratory - Chemistry and C hemistry - challengeon 02-11-2022 ALP [Catalytic activity/Vol] 54 U/L 45-117 [facility] Work Phone: ALT [Catalytic activity/Vol] 18 U/L 16-61 [facility] Work Phone: CO2 [Moles/Vol] 30.0 mmol/L 21.0-32.0 [facility] Work Phone: Globulin (S) [Mass/Vol] 2.9 g/dL 2.2-4.2 [facility] Work Phone: [phone] Lipase [Catalytic activity/Vol] 128 U/L 73-393 [facility] Work Phone: Magnesium [Mass/Vol] 2.5 mg/dL 1.6-2.6 [facility] Work Phone: Urea nitrogen/Creatinine [Mass ratio] 20.6 mg/mg 10-20 [facility] Work Phone: Laboratory - Hematology and Cell countson 02-11-2022 Erythrocyte distribution width (RBC) [Entitic vol] 51.6 fL 35.1-43.9 [facility] Work Phone: Erythrocyte distribution width (RBC) [Ratio] 14.6 % 11.6-14.6 [facility] Work Phone: Immature granulocytes/100 WBC (Bld) 0.400 % 0.0-0.9 [facility] Work Phone: Comment on above: IG% - Immature Granu locytes (promyelocytes, myelocytes and metamyelocytes) > 1% indicates that a LEFT SHIFT is Present. MCH (RBC) [Entitic mass] 31.9 pg 27.0-32.0 [facility] Work Phone: Nucleated RBC/100 WBC (Bld) [Ratio] 0 % 0-5 [facility] Work Phone: MCHC Auto (RBC) [Mass/Vol]on 02-11-2022 MCHC (RBC) [Mass/Vol] 32.7 g/dL 32-36 [facility] Work Phone: No Panel Informationon 02-11 Estimated Creatinine Clearance Calc 76.04 ml/min [facility] Work Phone: Estimated GFR (MDRD) Amer 104 mL/min >60 [facility] Work Phone: Comment on above: GFR Calc Estimated GFR (MDRD) Non-Af Amer 86 mL/min >60 [facility] Work Phone: Comment on above: Non- GFR Calc Platelets bldon 02-11-2022 Platelets (Bld) [#/Vol] 161 10*3/uL 150-450 [facility] Work Phone: Serum or plasma albumin nathan urement (mass/volume)on 02-11-2022 Albumin [Mass/Vol] 2.7 g/dL 3.2-5.0 [facility] Work Phone: Serum or plasma albumin/glob ulin mass ratioon 02-11-2022 Albumin/Globulin [Mass ratio] 0.9 {ratio} 0.9-2.4 [facility] Work Phone: Serum or plasma calcium nathan urement (mass/volume)on 02-11-2022 Calcium [Mass/Vol] 8.7 mg/dL 8.5-10.1 [facility] Work Phone: Serum or plasma creatinine m easurement (mass/volume)on 02-11-2022 Creatinine [Mass/Vol] 0.92 mg/dL 0.70-1.30 [facility] Work Phone: Comment on above: The validity of the calculated GFR & GFRAA in patients over 70 years has not been determined. Clinical correlation is essential. Serum or plasma urea nitroge n measurement (mass/volume)on 02-11-2022 Urea nitrogen [Mass/Vol] 19 mg/dL 7-18 [facility] Work Phone: Thin prep Papanicolaou smear with manual screeningon 02-11-2022 Thin prep Papanicolaou smear with manual screening 9 U/L 15-37 [facility] Work Phone: Thin prep Papanicolaou smear with manual screening 4 5-15 [facility] Work Phone: Absolute lymphocyte counton 01-27-2022 Lymphocytes Auto (Unsp spec) [#/Vol] 1.98 10*3/uL 0.83-4.51 [facility] Work Phone: Basophil percentageon 2021 Basophils/100 WBC (Bld) 0.7 % 0-1 [facility] Work Phone: Chloride [Moles/Vol] 108 mmol/L 98-107 [facility] Work Phone: [phone] Eosinophils/100 WBC (Bld) 1.7 % 0-5 [facility] Work Phone: Glucose [Mass/Vol] 83 mg/dL 74-106 [facility] Work Phone: Neutrophils (Bld) [#/Vol] 4.1 10*3/uL 2.0-7.7 [facility] Work Phone: [phone] Neutrophils/100 WBC (Bld) 60.1 % 47-70 [facility] Work Phone: Potassium [Moles/Vol] 3.5 mmol/L 3.5-5.1 [facility] Work Phone: Sodium [Moles/Vol] 142 mmol/L 136-145 [facility] Work Phone: WBC (Bld) [#/Vol] 6.9 10*3/uL 4.4-11.0 [facility] Work Phone: Blood erythrocytes count (nu mber/volume)on 01-27-2022 RBC (Bld) [#/Vol] 4.36 10*6/uL 4.6-6.2 [facility] Work Phone: Blood hemoglobin measurement (mass/volume)on 01-27-2022 Hemoglobin (Bld) [Mass/Vol] 13.6 g/dL 13.0-16.5 [facility] Work Phone: Blood lymphocytes/100 leukoc yteson 01-27-2022 Lymphocytes/100 WBC (Bld) 28.8 % 19-41 [facility] Work Phone: [phone] Blood monocytes/100 leukocyt eson 01-27-2022 Monocytes/100 WBC (Bld) 8.4 % 0-10 [facility] Work Phone: Blood platelet mean volumeon 01-27-2022 Platelet mean volume (Bld) [Entitic vol] 10.7 fL 6.2-12.0 [facility] Work Phone: Determination of erythrocyte mean corpuscular volume (MCV)on 01-27-2022 MCV (RBC) [Entitic vol] 94.3 fL 80-94 [facility] Work Phone: Glucose Glucometer (BldC) [M ass/Vol]on 01-27-2022 Glucose [Mass/Vol] 90 mg/dL 74-106 [facility] Work Phone: Comment on above: MANAGEMENT OF PATIEN T CARE PER NURSING PROTOCOL Hematocrit Auto (Bld) [Volum e fraction]on 01-27-2022 Hematocrit (Bld) [Volume fraction] 41.1 % 40-54 [facility] Work Phone: INR in Blood by Coagulation assayon 01-27-2022 INR Coag (Bld) [Relative time] 1.1 {INR} [facility] Work Phone: Laboratory - Chemistry and C hemistry - challengeon 01-27-2022 CO2 [Moles/Vol] 26.0 mmol/L 21.0-32.0 [facility] Work Phone: Urea nitrogen/Creatinine [Mass ratio] 11.8 mg/mg 10-20 [facility] Work Phone: Laboratory - Coagulationon 0 01-27-2022 aPTT Coag (Bld) [Time] 36.8 s 24.1-36.2 [facility] Work Phone: PT Coag (PPP) [Time] 13.8 s 11.7-14.9 [facility] Work Phone: Laboratory - Hematology and Cell countson 01-27-2022 Erythrocyte distribution width (RBC) [Entitic vol] 49.0 fL 35.1-43.9 [facility] Work Phone: Erythrocyte distribution width (RBC) [Ratio] 14.2 % 11.6-14.6 [facility] Work Phone: Immature granulocytes/100 WBC (Bld) 0.300 % 0.0-0.9 [facility] Work Phone: Comment on above: IG% - Immature Granu locytes (promyelocytes, myelocytes and metamyelocytes) > 1% indicates that a LEFT SHIFT is Present. MCH (RBC) [Entitic mass] 31.2 pg 27.0-32.0 [facility] Work Phone: Nucleated RBC/100 WBC (Bld) [Ratio] 0 % 0-5 [facility] Work Phone: MCHC Auto (RBC) [Mass/Vol]on 01-27-2022 MCHC (RBC) [Mass/Vol] 33.1 g/dL 32-36 [facility] Work Phone: No Panel Informationon 01-27 Estimated Creatinine Clearance Calc 68.59 ml/min [facility] Work Phone: Estimated GFR (MDRD) Amer 92 mL/min >60 [facility] Work Phone: Comment on above: GFR Calc Estimated GFR (MDRD) Non-Af Amer 76 mL/min >60 [facility] Work Phone: Comment on above: Non- GFR Calc Troponin I High Sensitivity 16 pg/mL 3.0-78.0 [facility] Work Phone: Comment on above: Please Note: [place] t Units and Gender Specific Reference Ranges. For more information see Policy Stat Procedure [place] High Sensitivity Troponin (TNIH) and attachments. Platelets bldon 01-27-2022 Platelets (Bld) [#/Vol] 145 10*3/uL 150-450 [facility] Work Phone: Serum or plasma calcium nathan urement (mass/volume)on 01-27-2022 Calcium [Mass/Vol] 8.3 mg/dL 8.5-10.1 [facility] Work Phone: Serum or plasma creatinine m easurement (mass/volume)on 01-27-2022 Creatinine [Mass/Vol] 1.02 mg/dL 0.70-1.30 [facility] Work Phone: Comment on above: The validity of the calculated GFR & GFRAA in patients over 70 years has not been determined. Clinical correlation is essential. Serum or plasma urea nitroge n measurement (mass/volume)on 01-27-2022 Urea nitrogen [Mass/Vol] 12 mg/dL -18 [facility] Work Phone: Thin prep Papanicolaou smear with manual screeningon 01-27-2022 Thin prep Papanicolaou smear with manual screening 8 5-15 [facility] Work Phone: XR CHEST 2V FRONTAL/LATon [facility] XR Chest PA and Lateralon IMPRESSION: No acute radiographic abnormality. [employer] Installer: SYLVAIN Transcribe Date/Time: Oct 19 2021 4:38P Dictated by : REINA NELSON MD This examination was interpreted and the report reviewed and electronically signed by: REINA NELSON MD on Oct 19 2021 4:39PM EST ZZZ_DO_NOT_ USE_DIVISIO N OF RADIOLOGY * * *Final Report* * * DATE OF EXAM: Oct 19 2021 4:24PM WOX 5291 - XR CHEST 2V FRONTAL/LAT / PROCEDURE REASON: Right-sided chest pain * * * * Physician Interpretation * * * * EXAMINATION: CHEST RADIOGRAPH (2 VIEW FRONTAL & LATERAL) CLINICAL HISTORY: Right-sided chest pain MQ: XC2_6 EXAM DATE/TIME: 10/19/2021 4:24 PM COMPARISON: 12/10/2019 RESULT: Lines, tubes, and devices: None. Lungs and pleura: No consolidation. No lung mass. No pleural effusion. No pneumothorax. Cardiomediastinal silhouette: Normal cardiomediastinal silhouette. Bones and soft tissues: Unremarkable. Plate and screw device transfixes the left clavicle. Healed left rib fractures ZZZ_DO_NOT_ USE_DIVISIO N OF RADIOLOGY Provider, [facility] Cristhian [facility] - 10/19/2021 * * *Final Report* * * DATE OF EXAM: Oct 19 2021 4:24PM WOX 5291 - XR CHEST 2V FRONTAL/LAT / PROCEDURE REASON: Right-sided chest pain * * * * Physician Interpretation * * * * EXAMINATION: CHEST RADIOGRAPH (2 VIEW FRONTAL & LATERAL) CLINICAL HISTORY: Right-sided chest pain MQ: XC2_6 EXAM DATE/TIME: 10/19/2021 4:24 PM COMPARISON: 12/10/2019 RESULT: Lines, tubes, and devices: None. Lungs and pleura: No consolidation. No lung mass. No pleural effusion. No pneumothorax. Cardiomediastinal silhouette: Normal cardiomediastinal silhouette. Bones and soft tissues: Unremarkable. Plate and screw device transfixes the left clavicle. Healed left rib fractures IMPRESSION IMPRESSION: No acute radiographic abnormality. [employer] Installer: PSCB Transcribe Date/Time: Oct 19 2021 4:38P Dictated by : REINA NELSON MD This examination was interpreted and the report reviewed and electronically signed by: REINA NELSON MD on Oct 19 2021 4:39PM EST [facility] Radiology Study observation (narrative) [facility] XR Chest PA and LateralOrder ed By: [facility] Provider on 10-19-2021 [facility] XR CLAVICLE 2V LTon 06-08-19 19 XR CLAVICLE 2V LT * * *Final Report* * * DATE OF EXAM: 2018 8:24AM HMX 5316 - XR CLAVICLE 2V LT / PROCEDURE REASON: fx * * * * Physician Interpretation * * * * RESULT: EXAMINATION / TECHNIQUE: XR CLAVICLE 2V LT HISTORY: S/P FX LT CLAVICLE X 2 YRS. REPAIR X 1 YR. PT C/O INCREASED PAIN. fx. COMPARISON: 12/01/2017 RESULT: Intact plate and screw fixation is noted at the clavicle. Faint lucency remains visualized at the mid clavicular shaft. The acromioclavicular joint is intact. IMPRESSION: Indeterminate osseous bridging at the transfixed mid clavicular fracture. Transcribed Using Voice Recognition Transcribe Date/Time: 2018 8:44A Dictated by: DARRICK BLUE MD This examination was interpreted and the report reviewed and electronically signed by: DARRICK BLUE MD on 2018 8:45AM EST [id number] [facility] CASE MANAGEMon 09-03-2017 CASE MANAGEM HNO ID: [id number] thor: Yumiko (Rn) RADHA Chamberservice: Care ManagementAuthor Type: Registered NurseType: Care Mgt Progress NoteFiled: 09/03/2017 2:00 PMNote Text:CARE MANAGEMENT DISCHARGE NOTESERVICE DATE: 09/03/2017SERVICE TIME: 1:52 PM LOS: 0 daysAdmission Date: 09/02/2017DISCHARGE ARRANGEMENT (list agency and phone number)HomeProvider: Dr. Marshall Phone: .CAREGIVER ASSESSMENT:Caregiver is ready, willing and able to meet the patient's needs asrecommended by the inter-professional team? YesPatient's transition needs and plan for meeting these needs: outpt f/u aptDoes the patient have an acute stroke diagnosis, or has the patient had astroke during this admission? NoHANDOFF COMMUNICATION:Primary Care Physician: Dr. Ponce CDUPZNNBFZKILW ARRANGEMENTS:Car with familyADDITIONAL CONTACT RESOURCES: .Needs Prior to Discharge: Ready for DischargePt being discharged today. Discharge instructions per nursing. Warm handoff called to Dr. Canseco office, phone busy with multiple attempts atcalling.SIGNATURE: Yumiko Chambers RN PATIENT NAME: Yariel Barron AcordDATE: September 03, 2017 : 1:52 PM PAGER/CONTACT #: [phone] [facility] CASE MGT INIT [facility] 2017 CASE MGT INIT [facility] HNO ID: [id number] thor: Yumiko (Rn) Reyes, RNService: Care ManagementAuthor Type: Registered NurseType: Care Mgt Initial AssessmentFiled: 09/03/2017 10:43 AMNote Text:CARE MANAGEMENT: ASSESSMENT AND DISCHARGE PLANSERVICE DATE: 09/03/2017SERVICE TIME: 10:39 AMPRIMARY CARE PHYSICIAN:WALTER IglesiasCPhone: [id number] STATUS: ObservationNeeds Prior to Discharge: Ready for DischargeMEDICAL:Patient/Repre sentative Stated Goals:To return home to life as it wasHealth Insurance[facility]alth Issues Impacting Discharge Plan: ORIF Clav LLast Admission Date: noneIs this Within the Past 30 days? NoAdvance Directive:Current Advance Directive: Health Care Power of Insurance Broker;Nolan Brandt Chart: [facility] Senior Environmental Technician Assisted with AD Completion: NoAction: Patient Unwilling (Pt states that [facility] has no need for his legalpaperwork, his Senior Reliability Engineer has it. )Health Literacy:1. How often do you need to have someone help you when you readinstructions, pamphlets, or other written material from your doctor orpharmacy? Never - 12. How confident are you filling out medical forms by yourself? Extremely- 1If Patient scores > 3 on either question, the following interventions wereput into place:Patient did not score > 3FUNCTIONAL AND COGNITIVE/BEHAVIORALPRIOR TO ADMISSION:Baseline Mental Status: Alert AND Oriented, Person, Place , Time andSituationFunctional Status: IndependentDoes Patient Currently Receive Any Community Services or Home Care? NoneEquipment Prior to Admission: Cane - Unknown typeCrutchesWalkerWheelchairHa s the Patient Been in a Snf Facility in the Past 30 days? NoSOCIAL:Living Arrangement: HomeLives With: SpouseFinancial Resources: RetiredPrimary Contact: Extended Emergency Contact InformationPrimary Emergency Contact: Nely Costaddress: [address] [place], [place] [address]Iiyg Frakicyw: SpouseSupportive: YesOther Important Patient Contacts: NoneCaregiver Assessment:Caregiver is ready, willing and able to meet the patient's needs asrecommended by the inter-professional team? YesPatient's transition needs and plan for meeting these needs: outpt f/u aptDoes the patient have an acute stroke diagnosis, or has the patient had astroke during this admission? NoMedication Adherence:I am convinced of the importance of my prescription medication: Agreecompletely - 0I worry that my prescription medication will do more harm than good to meDisagree completely - 0I feel financially burdened by my [id number]-qzimkf expenses for myprescription medication: Disagree completely - 0Patient is categorized as low risk < 2Are you interested in bedside delivery of your medications? NoFood Concerns:In the Last Month, Have You had Trouble Getting Food? No trouble gettingfoodDuring the Last Month, Have You Worried Whether Your Food Would Run OutBefore You Had Enough Money to Buy More? NoIs the Patient Psychosocially Complex? NoASSESSMENT AND PLAN:Medical Needs: Fall risk or frequent fallsPsychosocial Needs: NoneFREEDOM OF CHOICE EXPLAINED:N/APOTENTIAL TRANSITION BYOSRGbeb89 yo male admitted with ORIF Clav L. AANDOx3, follows commands and movesall ext. 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 Lives at home with whom can assist withany basic needs. Reports a fall 8 months ago from a ladder which is wherehis shoulder injury came from. Denies any safety concerns. PCP is , whom follows pt in the community. PT recommendations are pending.Anticipate d/c home today, post op day one, pending medical and therapyclearance. Plan of care reviewed with pt. CM to cont to follow.SIGNATURE: Yumiko Chambers RN PATIENT NAME: Yariel HolderDATE: September 03, 2017 : 10:39 AM PAGER/CONTACT #: [phone] [facility] Hematocriton 09-03-2017 Hematocrit (HCT) 39.7 % Normal 39.0-51.0 [facility] Hemoglobinon 09-03-2017 Hemoglobin mass conc (Bld) 13.6 g/dL Normal 13.0-17.0 [facility] NURSING PROGon 09-03-2017 NURSING PROG HNO ID: [id number] thor: Shelby Conteh) Roe Espinozaice: (none)Author Type: Registered NurseType: Nursing Progress NoteFiled: 09/03/2017 11:17 AMNote Text: Nursing Progress NotePatient Name: Yariel HolderMRN: [id number] Location: [place] [address]/[address]-* Daily Note:0745 awake, alert for am assessment. Left shoulder dressing dry, intact.Good radial pulse. States numbness left thumb. Denies pain. Fingers warm,mobile. Denies nausea. Incentive spirometer encouraged. Pain meds, plan ofcare discussed.1110 OT in to see. Discharge instructions given with voiced understanding.Ambulated downstairs for discharge.This note was completed by: Shelby Espinoza RN [facility] NURSING PROG HNO ID: [id number] thor: Purvi Conteh) RADHA Gomezervice: NursingAuthor Type: Registered NurseType: Nursing Progress NoteFiled: 09/03/2017 12:52 AMNote Text: Nursing Progress NotePatient Name: Yariel Barron AcordMRN: [id number] Location[place] Daily Note: Assumed care, pt resting in bed, awake. Pt assessed, see NPR,AANDO x 3, denies chest pain, SOB, N/V. Foam dressing to left shoulderC/D/I, white immobilizer on. Good radial pulses bilaterally, able to moveleft fingers, sensation to left hand only, left shoulder numb. Deniespain. Up to bathroom for void, standby assist. Discussed plan of careregarding unit protocols and instructed to call for needs and out of bed,pt verbalizes understanding.This note was completed by: PURVI GOMEZ RN [facility] PROGRESSon 09-03-2017 PROGRESS HNO ID: [id number] thor: Joel (Res) MahmoodService: Orthopaedic SurgeryAuthor Type: ResidentType: Progress NotesFiled: 09/03/2017 6:46 AMNote Text:ORTHOPAEDIC SURGERY PROGRESS NOTEDATE: 09/03/2017TIME: 6:44 AMPatient: Yariel Barron AcordMRN: [id number]: Procedure(s) (LRB):ORIF CLAVICLE (Left)Date: 09/02/2017Staff: Bowen SharpeiIMPRESSION/PLAN: a 67 year old male s/p Left clavicle ORIF- Pain: PO- WB status: Left NWB. NO SHOULDER ROM. OK FOR ACTIVE HAND AND ELBOW ROM.- PT/OT- Dressing: dry sterile. Change only if needed.- Abx: Discontinuing Antibiotics after 24 hours- Diet: HLIV once tolerating PO, Full diet- DVT ppx: aspirin- Dispo: Home todayACTIVE PROBLEM LISTCombined Form of Senile CataractAstigmatism of Both EyesVitreous Floaters of Both EyesEssential HypertensionFracture of Multiple Ribs of Left Side With Routine HealingClosed Displaced Fracture of Shaft of Left Clavicle With NonunionHld (Hyperlipidemia)SUBJECTIVE:No acute issue overnight, Comfortable, pain is better controlled,afebrile, No CP/SOBOBJECTIVE:VITAL SIGNS:BMI: Body mass index is 25.94 kg/(m2). 09/02/1821546BP: 138/77 141/79 132/69Pulse: 95 95 78Resp: 18 18 18Temp: 36.4 ?C (97.5 ?F) 36.5 ?C (97.7 ?F) 36.5 ?C (97.7 ?F)TempSrc: Oral Oral OralSpO2: 93% 94% 93%Weight:Height: 180.3 cm (5' 11)INTAKE AND OUTPUT:Intake/Output Summary (Last 24 hours) at 09/03/17 0644Last data filed at 09/03/17 0000 Gross per 24 hourIntake 3600 mlOutput 2 mlNet 3598 mlPHYSICAL EXAMINATION:Gen: AOx3, NAD, nontoxic in appearance, conversational and appropriateCV: RRR to peripheral palpationPulm: Unlabored symmetric breathingABD: Non-tender, non-distendedMSK exam:LUEDressing c/d/iSILT m/u/rAIN PIN ulnar intact2+ radialLABS:CBC, Coags, BMP, Mg, PhosRecent Labs HB 13.6HCT 39.7DATA:Diagnostic tests reviewed for today's visit:Most recent labsMost recent imagingBilal MD Batool09/03/2017Orthopaedic Surgery PGY-2Pager: [phone] [facility] THERAPY NTon 09-03-2017 THERAPY NT HNO ID: [id number] thor: Kary (Ot) EdgaropherService: Occupational TherapyAuthor Type: Occupational TherapistType: Therapy (PT/OT/Speech/Resp)Filed: 09/03/2017 11:37 AMNote Text:Occupational Therapy TreatmentSERVICE DATE: 09/03/2017SERVICE TIME: 1100 to 1108RO[address]: [id number] Discharge Disposition: HomeAnticipated Discharge Needs: Physical Assist at HomePhysical Assist at Home for: Cleaning;Transportation;Shoppi ng;MedicationManagementOT Recommendations to Nursing: ADL?s in chair;OOB for mealsOT 6 Clicks Score: 21Precautions/Activity Restrictions: Weight Bearing Restrictions;ShoulderPrecautio nsPrecaution/Activity Restriction Comments: hand wrist elbow AROM L OKExtremity With Weight Bearing Restricted: Left Upper ExtremityLeft Upper Extremity Weight Bearing Status: NWBShoulder Precautions: No pendulums;External rotation limitation;Forwardelevation limitationShoulder External Rotation Limited To: neutral 0 degreesShoulder Forward Elevation Limited To: 0 degreesASSESSMENT:Patient Disposition at Start of Session: OOB in ChairPatient Disposition at End of Session: OOB in ChairTolerance Limited By Cooperation (wanted to leave in a hurry)Occupational Therapy Problem List: Education Deficit;Edema;Pain;SafetyDefic its;Impaired Self Care;Decreased Activity Tolerance;Decreased SkinIntegrityPatient /Caregiver Goals: Go HomeGoals for Plan of Care:Upper Body Bathing with: IndependentUpper Body Dressing with: IndependentLower Body Bathing with: IndependentLower Body Dressing with: IndependentTolerate (minutes of functional activity): 45Functional Activity with: SupervisionProgress Toward Goals: Progressing as expectedRehab Potential: GoodPLAN:Treatment Frequency (times per week): 2 Current admissionTreatment Interventions: Education;Self Care / Home Management;FunctionalMobility Training;Balance Training;Wound Care Management;PainManagement;Jacoby a ManagementPlan of Care developed with: PatientTREATMENT INTERVENTIONS:Therapy Diagnosis: Reduced mobility-other;Decreased activities of dailyliving (ADL)Interventions Provided: Self Longterm Management (92633)Self Longterm Management (59065) Treatment Minutes: 81 unitSkilled Intervention(s): Education in Skilled Intervention(s): Providedinstruction, cuing and facilitation for upper body dressing; pt instructedto dress surgical arm first during recovery. Pt given tip to use drop armtechnique when dressing in order to avoid AROM.Pt instructed not to shower for 5 days after surgery and instructed not toshower until there has been no drainage from incision for at least 3 daysto decrease risk of infection.Education in: Pt educated on shoulder precautions, no AROM; no pushing,pulling, lifting, or external rotation; NWB on L UE. Pt left before Icould complete educating her by getting the car pulled up, while I wasaway retrieving the handout for them.Total Timed Code Treatment Minutes: 8Total Treatment Time (minutes): 8FUNCTIONAL G CODE:OT 6 Clicks Score: 21 (09/03/17 1100)Self Care Current Status (G8987): CK (09/03/17 0853)Self Care Goal Status (G8988): CK (09/03/17 0853)Based on clinical assessment and the score on the 6 Clicks FunctionalAssessment Tool, the G code and corresponding severity modifiers aredocumented above.SUBJECTIVE:Current Hospital Course: Chart reviewed and no significant medical updatesrelevant to therapy were notedReason for Occupational Therapy Consult: recent changes in ability toperform self caresRelevant Past Medical History: (HTN)Patient Report: I'm in a hurryHome EnvironmentPatient Lives With: Significant Other (spouse)Assistance Available: PRNEntry To Home: Stairs;With RailNumber Of Stairs Into Home: 1Number Of Stairs To Bed/Bath: 0Tub/Shower Type: tub/shwr GB,HHS,chairLaundry: 1 st floorEquipment Owned: Cane;Crutch(es);Commode-Raised ;Rollator;ShowerChair;Wheelcha ir;Hand Held Shower;Grab Bars-ShowerPrior Functional Level: Within Functional Limits (Ind ADLs, shares IADLs,drives,amb no device)OBJECTIVE:CURRENT FUNCTIONAL STATUS:Current Activities of Daily Living Assist LevelFeeding SupervisionGrooming SupervisionBathing Upper Body Moderate AssistanceBathing Lower Body Minimal AssistanceDressing Upper Body Minimal AssistanceDressing Lower Body Minimal AssistanceToileting Stand By AssistanceInstrumental Activities of Daily Living Assist LevelMeal/Beverage PrepLight CleaningLaundryMedication Management with StrategiesFunctional Mobility Assist LevelRollingSupine to SitSit to SupineScooting IndependentSit to Stand IndependentStand to Sit IndependentBed to ChairToilet/CommodeFunctional Mobility IndependentPlease see discipline specific clinical documentation flowsheet forcomplete details for this therapy evaluation/treatment.SIGNATURE : Kary Benítez OTR/L PATIENT NAME: Yariel Barron AcordDATE: September 03, 2017 : 11:32 AM PAGER: [phone] [facility] THERAPY NT HNO ID: [id number] thor: Kary (Ot) QamarerService: Occupational TherapyAuthor Type: Occupational TherapistType: Therapy (PT/OT/Speech/Resp)Filed: 09/03/2017 9:31 AMNote Text:Occupational Therapy EvaluationSERVICE DATE: 09/03/2017SERVICE TIME: 0853 to 0910ROOM: [id number] Discharge Disposition: HomeAnticipated Discharge Needs: Physical Assist at HomePhysical Assist at Home for: Cleaning;Transportation;Shoppi ng;MedicationManagementOT Recommendations to Nursing: ADL?s in chair;OOB for mealsOT 6 Clicks Score: 18Precautions/Activity Restrictions: Weight Bearing Restrictions;ShoulderPrecautio nsPrecaution/Activity Restriction Comments: hand wrist elbow AROM L OKExtremity With Weight Bearing Restricted: Left Upper ExtremityLeft Upper Extremity Weight Bearing Status: NWBShoulder Precautions: No pendulums;External rotation limitation;Forwardelevation limitationShoulder External Rotation Limited To: neutral 0 degreesShoulder Forward Elevation Limited To: 0 degreesASSESSMENT:Patient presents with low complexity assessment, as pt had L clavicle fxrepair ORIF with bone grafting, with past history of HTN. Requiresskilled OT for increased safety and independence with self cares andfunctional transfersPatient Disposition at Start of Session: Supine in BedPatient Disposition at End of Session: Supine in Bed;Call Decker in ReachTolerated Full SessionOccupational Therapy Problem List: Education Deficit;Edema;Pain;SafetyDefic its;Impaired Self Care;Decreased Activity Tolerance;Decreased SkinIntegrityPatient /Caregiver Goals: Go HomeGoals for Plan of Care:Upper Body Bathing with: IndependentUpper Body Dressing with: IndependentLower Body Bathing with: IndependentLower Body Dressing with: IndependentTolerate (minutes of functional activity): 45Functional Activity with: SupervisionRehab Potential: GoodPLAN:Treatment Frequency (times per week): 2 Current admissionTreatment Interventions: Education;Self Care / Home Management;FunctionalMobility Training;Balance Training;Wound Care Management;PainManagement;Jacoby a ManagementPlan of Care developed with: PatientTREATMENT INTERVENTIONS:Therapy Diagnosis: Reduced mobility-other;Decreased activities of dailyliving (ADL)Interventions Provided: Evaluation;Self Longterm Management (82917)$ Evaluation-Low (49878) Billed Units: 1 unitSelf Longterm Management (63022) Treatment Minutes: 81 unitSkilled Intervention(s): Instructed in post-op instructions during ADLsEducation in Pt was taught shoulder precautions and protocol per Jennifer. Instructed and educated patient on safety with ambulation andwearing sling. Instructed and educated patient on:- ADL technique; drop arm dressing.-Instructed and educated patient on one handed technique for LE dressing.Recommend patient perform dressing in seated position to decrease risk ofLOB and falls.- IADLs: encouraged patient to avoid assisting with IADLs until cleared bysurgeon, -NWBing status and NO PROM or AROM at shoulder,Total Timed Code Treatment Minutes: 8Total Treatment Time (minutes): 17FUNCTIONAL G CODE:OT 6 Clicks Score: 18 (09/03/17 08)Self Care Current Status (G8987): CK (09/03/17852)Self Care Goal Status (G8988): CK (09/03/17852)Based on clinical assessment and the score on the 6 Clicks FunctionalAssessment Tool, the G code and corresponding severity modifiers aredocumented above.SUBJECTIVE:Current Hospital Course: Chart reviewed; Pt 67 yo M admitted on 09/02/17or L clavicle fx repair ORIF with bone grafting,by Dr Marshall.Reason for Occupational Therapy Consult: recent changes in ability toperform self caresRelevant Past Medical History: (HTN)Patient Report: I want to play golf.Home EnvironmentPatient Lives With: Significant Other (spouse)Assistance Available: PRNEntry To Home: Stairs;With RailNumber Of Stairs Into Home: 1Number Of Stairs To Bed/Bath: 0Tub/Shower Type: tub/shwr GB,HHS,chairLaundry: 1 st floorEquipment Owned: Cane;Crutch(es);Commode-Raised ;Rollator;ShowerChair;Wheelcha ir;Hand Held Shower;Grab Bars-ShowerPrior Functional Level: Within Functional Limits (Ind ADLs, shares IADLs,drives,amb no device)OBJECTIVE:CURRENT FUNCTIONAL STATUS:Current Activities of Daily Living Assist LevelFeeding SupervisionGrooming SupervisionBathing Upper Body Moderate AssistanceBathing Lower Body Minimal AssistanceDressing Upper Body Moderate AssistanceDressing Lower Body Minimal AssistanceToileting Stand By AssistanceInstrumental Activities of Daily Living Assist LevelMeal/Beverage PrepLight CleaningLaundryMedication Management with StrategiesFunctional Mobility Assist LevelRollingSupine to SitSit to SupineScootingSit to Stand (will assess next session)Stand to SitBed to ChairToilet/CommodeFunctional MobilityPlease see discipline specific clinical documentation flowsheet forcomplete details for this therapy evaluation/treatment.SIGNATURE : Kary Benítez OTR/L PATIENT NAME: Yariel Barron AcordDATE: September 03, 2017 : 9:27 AM PAGER: [phone] [facility] ANES Allison 09-02-2017 ANES POST HNO ID: [id number] thor: George Sawyer EstrinService: AnesthesiologyAuthor Type: AnesthesiologistType: Anesthesia PostOpFiled: 09/02/2017 7:24 PMNote Text:POST ANESTHESIA EVALUATION NOTESERVICE DATE: 09/02/2017SERVICE TIME: 7:24 PMDOB: 1950Vitals: 09/02/1817Temp: 36 ?C (96.8 ?F) 36.2 ?C (97.2 ?F) 09/02/1817BP: 133/76 130/75 132/66 133/76 09/02/1817Pulse: 96 86 83 82 09/02/1817Resp: 18 18 18 17 09/02/1817SpO2: 95% 95% 95% 92%Validated Vital Signs: YesPOST ANES STATUS: No apparent anesthetic complications. The patient isappropriately hydrated with stable respiratory and cardiovascular status.Patient has safe and adequate airway control. The patient has appropriatepain relief and no significant post operative nausea or vomiting. Thepatient has achieved baseline mental status.Further assessment by Anesthesia Service: NoneOther Remarks:SIGNATURE: George Gutierrez MD PATIENT NAME: Yariel Barron AcordDATE: September 02, 2017 : 7:23 PM PAGER/CONTACT #: [phone] [facility] ANES PREOPon 09-02-2017 ANES PREOP HNO ID: [id number] thor: Serge (Res) ReavenService: AnesthesiologyAuthor Type: ResidentType: Anesthesia PreOpFiled: 09/02/2017 12:18 PMNote Text: ANESTHESIOLOGY DAY OF SURGERY NOTESERVICE DATE: 09/02/2017SERVICE TIME: 12:05 PMDOB: 1Procedure(s) (LRB):ORIF CLAVICLE (Left)Surgeon(s):Bowen Marshallimaradha body mass index is 26.88 kg/(m2) as calculated from thefollowing: Height as of 08/25/17: 179.1 cm (5' 10.5). Weight as of 08/25/17: 86.2 kg (190 lb).Most recent hematocrit and potassium results:Hematocrit 48.8 08/25/2017Potassium 4.2 08/25/2017ANES DOS/PREOP NOTE:Vitals:There were no vitals filed for this visit.ACTIVE PROBLEM LISTCombined Form of Senile CataractAstigmatism of Both EyesVitreous Floaters of Both EyesEssential HypertensionFracture of Multiple Ribs of Left Side With Routine HealingClosed Displaced Fracture of Shaft of Left Clavicle With NonunionHld (Hyperlipidemia)PAST MEDICAL HISTORYDiagnosis Date- HLD (hyperlipidemia)- HTN (hypertension)- Pneumothorax on left 12/09/2016 small apical associated with trauma multiple rib fractures- RSV (acute bronchiolitis due to respiratory syncytial virus) 05/19/2017 admitted through ED with SOB, cough, hypoxia SaO2 82%. CXRhyperinflation. Tx duonebs, IV Solu Medrol. discharged 05/21/17 onprednison taper- SVT (supraventricular tachycardia) (HCC) occurred following chest trauma with multiple rib fractures- Tobacco use disorderPAST SURGICAL HISTORYProcedure Laterality Date- EXTRACTION ERUPTED TOOTH full dental extraction- REMOVAL OF TONSILS,<12 Y/O Tonsillectomy- REMV CATARACT EXTRACAP,INSERT LENS Right 06/17/[address] Holguin HISTORYProblem Relation Age of Onset- No Ocular Disease Father- Alcohol/Drug Father- Cataract Mother- Diabetes MotherSocial History:Social HistorySubstance Use Topics- Smoking status: Former Smoker Packs/day: 0.10 Years: 40.00 Types: Cigarettes Quit date: 04/28/2017- Smokeless tobacco: Never Used Comment: 3 per day- Alcohol use NoCurrent Outpatient Prescriptions on File Prior to Encounter:meloxicam (MOBIC) 15 mg tablet Take 1 tablet by mouth once daily. Withfood.diltiazem CD (CARDIZEM CD) 180 mg 24 hr capsule Take 1 capsule by mouthonce daily.EPINEPHrine (EPIPEN 2-SIDNEY) 0.3 mg/0.3 mL auto-injector Inject 0.3 mLintramuscularly as needed.aspirin, enteric coated (ASPIRIN, ENTERIC COATED) 81 mg EC tablet Take 325mg by mouth once daily.multivitamin (DAILY VITAMIN) tablet Take 1 tablet by mouth once daily.No current facility-administered medications on file prior to encounter.Current Outpatient Prescriptions:CYANOCOBALAMIN, VITAMIN B-12, (VITAMIN B-12 ORAL) Take by mouth oncedaily. Disp: Rfl:VIT A/C/E AC/ZNOX/CUPRIC OXIDE (EYE VITAMIN AND MINERALS ORAL) Take bymouth once daily. Disp: Rfl:meloxicam (MOBIC) 15 mg tablet Take 1 tablet by mouth once daily. Withfood. Disp: 30 tablet Rfl: 5diltiazem CD (CARDIZEM CD) 180 mg 24 hr capsule Take 1 capsule by mouthonce daily. Disp: 30 capsule Rfl: 5EPINEPHrine (EPIPEN 2-SIDNEY) 0.3 mg/0.3 mL auto-injector Inject 0.3 mLintramuscularly as needed. Disp: 1 Each Rfl: 0aspirin, enteric coated (ASPIRIN, ENTERIC COATED) 81 mg EC tablet Take 325mg by mouth once daily. Disp: Rfl:multivitamin (DAILY VITAMIN) tablet Take 1 tablet by mouth once daily.Disp: Rfl:Current Facility-Administered Medications:lactated ringers infusion 5-30 mL/hr INTRAVENOUS CONTINUOUS Yanet (Marc)BrezovarceFAZolin iv piggyback 2 g in D5W (iso-osmotic) 100 mL (ANCEF) 2 gINTRAVENOUS Pre-Op Once Yanet (Marc) BrezovarAllergies:ALLERGIESAll ergen Reactions- Bee Sting Anaphylaxis- Milk Other: See Comments sneezing with any dairy productWBC (k/uL)Date Value08/25/2017 10.13RBC (m/uL)Date Value08/25/2017 5.30Hemoglobin (g/dL)Date Value08/25/2017 16.0Hematocrit (%)Date Value08/25/2017 48.8MCV (fL)Date Value08/25/2017 92.1MCH (pG)Date Value08/25/2017 30.2MCHC (g/dL)Date Value08/25/2017 32.8RDW-CV (%)Date Value08/25/2017 13.8Platelet Count (k/uL)Date Value08/25/2017 199MPV (fL)Date Value08/25/2017 11.6Glucose (mg/dL)Date Value08/25/2017 82BUN (mg/dL)Date Value08/25/2017 10Creatinine (mg/dL)Date Value08/25/2017 0.92Sodium (mmol/L)Date Value08/25/2017 140Potassium (mmol/L)Date Value08/25/2017 4.2Chloride (mmol/L)Date Value08/25/2017 102CO2 (mmol/L)Date Value08/25/2017 27Calcium (mg/dL)Date Value08/25/2017 9.3URINLAYSISNo results found for: PH, SPGR, UGLUC, UBILI, UKET, UHB, UPROT, UROBIL,UWBC, SSAEKG:Procedure Date : Aug 25 2017 09:53:14Edit Date : Aug 28 2017 08:20:18?Diagnosis:SINUS BRADYCARDIANONSPECIFIC T WAVE ABNORMALITYABNORMAL ECGConfirmed by YUNIER LAM D.O. ([id number]) on 08/28/2017 8:20:12 AM?Exercise stress test 06/2016:CONCLUSION:? NORMAL EXCEPT FOR: ST DEPRESSION.ADDITIONAL COMMENTS:? ABNORMAL EXERCISE STRESS ECG AT 90% PMHR AND 9.1 METS, UP TO 2.[address] DEPRESSION OBSERVED IN THE INFEROLATERAL LEADS WITH EXERCISESTRESS. SPECIFICITY REDUCED DUE TO ABNORMALITIES ON RESTING ECG.CLINICALLY NEGATIVE FOR ISCHEMIA.OXYGEN SATURATION 96% DURING EXERCISE.NORMAL HR RECOVERY.NUCLEAR IMAGES OBTAINED; SEE SEPARATE REPORT.CONCLUSIONS:?1. Perfusion study: Normal Study.?2. No evidence of infarct or ischemia.?3. Average functional capacity for age and gender.?4. Left ventricle is normal in size. the left ventricle systolicfunction is normal.?5. Right ventricle is normal in size The right ventricle systolicfunction is normal.?6. The Stress LVEF is 53 %.?7. This is a low risk scan.?8. No evidence of ischemia with ECG changes.DOS EXAM: Adequate NPO status: YesAnesthetic risks, benefits, alternatives, personnel and consent discussed:YesPatient agrees to proceed: YesPrevious Anesthesia: No history of adverse event.Airway Assessment: MP 2; Neck ROM: Full ROM without neurologic symptoms;Airway Evaluation: No significant abnormalitiesSymptoms of Sleep Apnea: Snoring, Hypertension, BMI > 35, Age over 50 (67year old) and Male genderDentition: EdentulousAdditional Physical Exam:Lungs: Patient health status unchanged since recent history and physical.See history and physical for exam findings.Cardiac: Patient health status unchanged since recent history andphysical. See history and physical for exam findings.Additional Pertinent Findings: N/ABlood Products: Not anticipated for this procedure.Anesthetic Plan: General, Standard ASA MonitorsPain Management Plan: Parenteral or Oral, Peripheral Nerve Block and perSurgical ServiceASA Class: 2Other Medical Problems:TPD-OnpdakhmqQPI-ys RXFormer light smoker-quit 03/2017RSV/Pneumonia 05/2017-asymptomaticLeft clavicle fractureChronic Beta Rico medication administered within 24 hours: N/AI have interviewed and examined the patient. I have reviewed the medicalrecord and/or the pre-anesthesia evaluation, pertinent labs, and testresults.Significant changes in the patient's condition since the History andPhysical, not otherwise documented in primary service progress notes: NoThis contains updated information obtained within 48 hours ofSurgery/Procedure.SIGNATURE: Serge Funez MD PATIENT NAME: Yariel Barron AcordDATE: September 02, 2017 : 12:05 PM CSN: [id number] [facility] NURSING PROGon 09-02-2017 NURSING PROG HNO ID: [id number] thor: Savita MoralesRn) RADHA Cernaervice: (none)Author Type: Registered NurseType: Nursing Progress NoteFiled: 09/02/2017 10:54 PMNote Text: Nursing Progress NotePatient Name: Yariel HolderMRN: [id number] Location[facility] [place]-* Daily Note: Patient arrived on floor from PACU in stable condition.Patient resting in bed. Assessment complete, see NPR. AANDO x3. Deniesshortness of breath or chest pain. Positive bowel sounds x4. Deniesnausea. Abd soft and non-tender. Dressing to left shoulder isclean/dry/intact with ice and immobilizer in place. Peripheral pulsespresent bilaterally upper extremities. Denies calf pain. Sequentials onbilaterally. Patient oriented to room and call light use. Educated patienton use of incentive spirometer. Discussed plan of care for the night.Informed patient that they ordered Asprin to be taken as a blood thinner.Patient states that this irritates his stomachs and wishes to wait tilltomorrow to start that. Denies any needs at this time, personal belongingsand call decker within reach.2200 Patient assisted up to restroom, voided and back to bed. Dangling atedge of bed now.2215 Scheduled IV antibiotic hung at this time. Patient laying back in bednow.This note was completed by: Savita Cerna RN [facility] NURSING PROG HNO ID: [id number] thor: Tatyana MoralesRn) RADHA Gironervice: NursingAuthor Type: Registered NurseType: Nursing Progress NoteFiled: 09/02/2017 1:14 PMNote Text: PRE OP LEARNING ASSESSMENTPROCEDURE/SURGERY:OR IF left clavicle fxREADINESS TO LEARNCOGNITIVE ABILITY: Alert and orientedMOTIVATION TO LEARN: InterestedFAMILY SUPPORT: High - Very involved in pt carePATIENT LEARNS BEST BY: Multiple MethodsFACTORS AFFECTING LEARNING: NonePHYSICAL LIMITATIONS AFFECTING LEARNING: NoneElectronically Signed By: Tatyana Giron RN In Department: [facility] OPERATIVE NOon 09-02-2017 OPERATIVE NO HNO ID: [id number] thor: Bowen Delgadoe: Orthopaedic SurgeryAuthor Type: PhysicianType: Operative ReportFiled: 09/02/2017 6:35 PMNote Text:[facility] [address] [place]OPERATIVE REPORTNAME: Yariel Barron [facility] #: [id number]: 09/02/2017 (3:40pm-5:45pm) AGE: 67SURGEON 1: Bowen Marshall M.D.ENDOCRINOLOGY PHYSICIAN: 1. Dayron Johnson M.D. 2. Joel Renae M.D. 3. Dottie BoogieOPERATION: Open reduction and internal fixation of left clavicle fracturenonunion with bone grafting.??ANESTHESIA: General anesthesia with regional interscalene nerve block forpostoperative pain control.??PREOPERATIVE DIAGNOSIS: Left clavicle fracture nonunion.??POSTOPERATIVE DIAGNOSIS: Left clavicle fracture nonunion.??OPERATIVE INDICATIONS: The patient is a 67-year-old right-hand dominantwhite male who sustained a left shoulder clavicle fracture from a fall offa ladder on December 09, 2016. The fracture was treated nonoperatively, butthe patient has noticed persistent complaints and dysfunction in theshoulder. Recent x-rays showed evidence of a left midshaft claviclefracture nonunion. Based on these findings and the patient's persistingcomplaints, a discussion was had about surgical intervention in the formof an open reduction and internal fixation of the left clavicle fracturenonunion with possible bone grafting. The risks and benefits of surgery aswell as the expected postoperative course were discussed with the patientat length. The patient understood these risks and benefits and chose toproceed with operative intervention.??OPERATIVE PROCEDURE: On the day of surgery, the patient was seen in thepreoperative area. The planned surgical procedure and the correct surgicalsite were again reviewed with the patient, and the left upper extremitywas marked. Prior to being taken back to the operating room, the patientdid receive an interscalene nerve block in his left upper extremity forpostoperative pain control. Preoperative antibiotics were given. Thepatient was then taken back to the operating room. The patient was thenintubated without complications. He was placed in the beach chair positionand the left upper extremity was prepped and draped in the usual sterilefashion.An incision was then made along the area of the fracture, near themidshaft of the clavicle, along Austen's lines. The incision was carrieddown to the level of the deltotrapezial fascia. Subcutaneous flaps werethen made in order to expose the entire length of the clavicle mediallyand laterally. After appropriate flaps had been made, the fascia wasopened directly over the fracture site in the mid-clavicle. Fascial flapswere then made over the fracture site and the fracture ends werecompletely exposed using a combination of the electrocautery, elevators,and rongeurs. This included release of significant scar tissue present atthe fracture site. Once the fracture ends were exposed, the fracturenonunion was confirmed. No bony healing was present at the fracture site.The fracture pattern showed an oblique fracture line with anterior lateraland posterior medial main fragments. There was also a separate non-unitedbutterfly fragment anterior inferiorly. The high-speed bur and a rongeurwere first used to contour the fracture ends of the main medial andlateral fragments, as well as the butterfly fragment, to allow foranatomic reduction and to get back to healthy bleeding bone. Theintramedullary canal of both main fragments was also opened with thehigh-speed bur and a drill. The butterfly fragment was then anatomicallyreduced to the main lateral fragment. An anterior to posterior lag screwwas then placed to fix the butterfly fragment to the lateral fragment. A2.7-mm cortical non-locking screw that measured 24 mm in length was placedusing a standard lag technique and showed good compression at the fracturesite. The main medial and lateral fragments were then anatomically reducedto each other using a reduction clamp. An anterior to posterior lag screwwas then placed to hold the reduction between these 2 main fragments. A2.7-mm cortical non-locking screw that measured 24 mm in length was placedusing a standard lag technique and showed good compression at the fracturesite. A superior, anatomically contour clavicle plate was then placed overthe fracture site. An 7-hole Synthes superior clavicle plate with lateralextension was deemed to be of appropriate length for adequate fixationboth medial and lateral to the fracture site. Fluoroscopic imaging wasobtained to confirm anatomic reduction of the fracture and appropriatepositioning of the plate.??Following this, the plate was first fixed to the medial side of thefracture. A 3.5-mm cortical non-locking screw was placed in the secondmost medial hole of the plate to compress the plate to the medialfragment. This screw measured 20 mm in length. After placing this screw,attention was turned to the lateral fragment. A 3.5-mm corticalnon-locking screw was then placed in the second most lateral shaft screwhole and measured 18 mm in length. Both screws nicely compressed the platedown to bone laterally and medially. Fluoroscopic imaging was againobtained to confirm maintenance of alignment of the fracture and goodplate positioning. The four remaining shaft screw holes lateral and medialto the fracture site were then filled with 3.5-mm cortical non-lockingscrews. The most medial and third most medial screws measured 24 mm and 20mm in length, respectively. The most lateral and third most lateral screwsmeasured 18 mm and 20 mm in length, respectively. The most lateral screwhole in the lateral cluster of the plate was then drilled and filled witha 2.4-mm cortical non-locking screw that measured 16 mm in length. Twomore screw holes in the lateral cluster of the plate were drilled andfilled with 2.7-mm locking screws that measured 16 mm and 14 mm in lengthFinal fluoroscopic imaging was obtained and confirmed maintenance offracture reduction and positioning of the plate.The wound was then copiously irrigated. Some of the resected bony calluswas then placed as bone graft at the fracture site. The fascial layer wasthen closed using interrupted #2 Tycron and #1 Vicryl stitches. This didnicely cover the entire length of the plate and bone. The wound was thencopiously irrigated again. The subcutaneous layer was then closed with 2-0Vicryl interrupted stitches. A running 3-0 Prolene stitch was used toclose the skin. Steri-Strips were placed over the incision site, and thewound was sterilely dressed with Adaptic, 4 x 4 gauze, ABD dressings, andFoam tape. The arm was then placed in a shoulder immobilizer. The patientwas awoken without complications and extubated. [facility] was [facility] in stable condition.?Opening of the incision was performed by Dayron Johnson M.D., Dottie Gleason, with the primary surgeon (Bowen Marshall M.D.)readily available. Closing of the incision was performed by Yohana Peralta, with the primary surgeon (Bowen Marshall M.D.) readilyavailable. The remainder of the procedure, including all criticalelements, was completed by the primary surgeon (Bowen Marshall M.D.) withassistance from Dayron Johnson M.D., Joel Renae M.D., and Dottie Boogie?ESTIMATED BLOOD LOSS: 50 cc?DRAINS: none?SPECIMENS: none?COMPLICATIONS: none apparent???Bowen Marshall M.D. [facility] XR CLAVICLE 2V LTon 09-03-19 18 XR CLAVICLE 2V LT * * *Final Report* * *DATE OF EXAM: Sep 02 2017 6:43PM EUX 5316 - XR CLAVICLE 2V LT / REASON: Clavicle fracture * * * * Physician Interpretation * * * *RESULT: EXAMINATION: XR CLAVICLE 2V LTCLINICAL HISTORY: PostopComparison: Preoperative study of 08/25/2017RESULT: 2 portable views obtained.Plate and screw device transfixes the left clavicle. Position and alignment appear anatomic. AC joint appears intact. Hardware appears intact.IMPRESSION:Satisfactory postoperative left shoulderTranscribed Using Voice RecognitionTranscribe Date/Time: Sep 02 2017 6:51PDictated by: REINA NELSON MDThis examination was interpreted and the report reviewed and electronically signed by: REINA NELSON MD on Sep 02 2017 6:52PM [id number] [facility] XR CLAVICLE 2V LT * * *Final Report* * *DATE OF EXAM: Sep 02 2017 6:02PM EUR 5316 - XR CLAVICLE 2V LT / REASON: clavicle fracture * * * * Physician Interpretation * * * *RESULT: HISTORY: clavicle fractureTECHNIQUE: Spot fluoroscopic image of the left clavicleCOMPARISON: Left clavicle radiographs 08/25/2017RESULT:Limited evaluation of bony detail on the single frontal spot fluoroscopic image. There is postsurgical change of interval reduction and plate and screw fixation of the mid shaft clavicle fracture with satisfactory alignment.Fluoroscopic Radiation Summary:Plane A, Air Kerma: 9.1 mGyDose Area Product (DAP): 0.0 mGy*bhW6Zpapjs time: 0:05 min:secIMPRESSION:INTRA-OP EXAMTranscribed Using Voice RecognitionTranscribe Date/Time: Sep 02 2017 6:11PDictated by: YUNIEL NELSON MDThis examination was interpreted and the report reviewed and electronically signed by: YUNIEL NELSON MD on Sep 02 2017 6:12PM [id number] [facility] NURSING PROGon 08-26-2017 INR Coag RelTime (d) HNO ID: [id number]: Citlali MoralesRn) RADHA Vásquezervice: (none)Author Type: Registered NurseType: Nursing Progress NoteFiled: 08/28/2017 11:14 AMNote Text:PACC Nurse Progress NoteHistory AND Physical:PACC Visit Date: 08/25/17Labs Within Last 6 Months:Within acceptable limits for planned procedureCBC: Date 08/25/17BMP/CMP: Date 08/25/17Imaging Within Last 12 Months:X-ray left clavicle 08/25/17Cardiac Testing:EKG in last 12 Months: Yes: Date: 08/25/17, Comment:Diagnosis:SINUS BRADYCARDIANONSPECIFIC T WAVE ABNORMALITYABNORMAL ECGPerf/Stress 06/12/16 normal,no ischemiaRisk Assessment:N/AAnesthesia Review:DOSNarrative:N/APre-op Considerations:NAChart Check:Yoon Pendletonrixiomara 2017 12:19 PM Normal [facility] HOSPon 08-13-2017 HOSP Patient:Brooke Holder RMRN: Height:5' 10.5(1.791 m)Weight:190 lb (86.183 kg)Outpatient Medications as of 09/02/17:CYANOCOBALAMIN, VITAMIN B-12, (VITAMIN B-12 ORAL)VIT A/C/E AC/ZNOX/CUPRIC OXIDE (EYE VITAMIN AND MINERALS ORAL)meloxicam (MOBIC) 15 mg tabletdiltiazem CD (CARDIZEM CD) 180 mg 24 hr capsuleEPINEPHrine (EPIPEN 2-SIDNEY) 0.3 mg/0.3 mL auto-injectoraspirin, enteric coated (ASPIRIN, ENTERIC COATED) 81 mg EC tabletmultivitamin (DAILY VITAMIN) tabletAdmission/Clinic Administered Medications as of 09/02/17:lactated ringers infusionceFAZolin iv piggyback 2 g in D5W (iso-osmotic) 100 mL (ANCEF)fentaNYL 50 mcg/mL 50-100 mcg injection (SUBLIMAZE)midazolam (PF) 2-4 mg injection (VERSED)Problem List: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]Vitreous floaters of both eyes [H43.393]Essential hypertension [I10]Fracture of multiple ribs of left side with routine healing [S22.42XD]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 [S42.022K]HLD (hyperlipidemia) [E78.5]Allergies:Bee StingMilkDate Verified: 09/02/17Lab ValuesLab Value Units Date High LowPOTA* 4.2 mmol/L 08/25/2017 5.1 3.7HEMA* 48.8 % 08/25/2017 51.0 39.0Progress Notes ([facility]):Lisa Funes RT, Tech 08/25/2017 10:17 AM Signed Radiology Service Progress NotePATIENT NAME: Yariel HolderMRN: [id number] OF SERVICE: August 25, 2017TIME: 10:12 AMPATIENT IDENTITY VERIFICATION COMPLETED USING TWO (2) METHODS: Patientconfirmed name verbally and Date of .PATIENT GENDER DATA: MalePATIENT RELEVANT IMPLANT DATA REVIEWED: Not ApplicableRADIOLOGY DEPARTMENT: General X-ray: Exam(s) Completed: Upper ExtremityX-Ray(s): Clavicle, left :PERIPHERAL IV DATA: Not applicableSIGNED BY: Lisa Funes RTAprkalyan 2017 10:12 AMProgress Notes ([facility]):Valdez Resendez Rt 08/11/2017 1:16 PM Signed Radiology Service Progress NotePATIENT NAME: Yariel HolderMRN: [id number] OF SERVICE: August 11, 2017TIME: 1:08 PMPATIENT IDENTITY VERIFICATION COMPLETED USING TWO (2) METHODS: Patientconfirmed name verbally and Date of .PATIENT GENDER DATA: MalePATIENT RELEVANT IMPLANT DATA REVIEWED: Not ApplicableRADIOLOGY DEPARTMENT: General X-ray: Exam(s) Completed: Upper ExtremityX-Ray(s): Clavicle, left :PERIPHERAL IV DATA: Not applicableSIGNED BY: Valdez Resendez RtApril 2017 1:08 PM Normal [facility] Discharge Summaryon 02-18-20 17 Discharge Summary Normal [facility] [place] [facility] [place] CT THORAX W/ CONTRASTon 12-11 CT THORAX W/ CONTRAST ADDENDUMTechnique: This exam was performed according to our departmental dose optimization program, and includes the following measures where applicable: automated exposure control, adjustment of the mAs and/or kVp according to patient size and/or exam, and an iterative reconstruction algorithm. Interpreted By: Fei Wisdom MDPreliminary Report By: Gordo Lyon MDElectronically Signed By: Fei Wisdom MD Dictated Date: 01/07/2017 9:42:29 AM Prelim Date: 01/07/2017 10:30:33 AM Sign Date: 01/07/2017 10:30:33 AM ORIGINALComputerized tomography of the chest with contrast, axial plane including coronal reconstructions. Clinical information: pain; trauma patient - suspect aortic rupture, pulmonary trauma Comparison: None. Findings: There is a tiny right apical pneumothorax measuring up to 1 cm. Dependent atelectasis is noted at the lung bases. There is airspace consolidation within the left lower lobe, which likely represents a small pulmonary contusion. There is no effusion. The heart is normal in size. The aorta is normal in course and caliber. A small hiatal hernia is noted. The mediastinum is normal. There are multiple left rib fractures involving the second through eighth ribs posteriorly as well as the seventh rib laterally. There is left chest wall subcutaneous emphysema at the site of the left seventh rib fracture, and mild soft tissue swelling. The spine is intact. Comminuted left clavicle fracture. IMPRESSION: 1. Tiny right apical pneumothorax.2. Numerous left rib fractures as detailed above.3. Left lower lobe pulmonary contusion.4. Comminuted left clavicle fracture. These findings were discussed with Dr. Gavin in the emergency department at proximately 9:00 PM on 12/09/2016. I have personally reviewed the images of this examination and agree with the resident's findings and interpretation. Interpreted By: Fei Wisdom MDPreliminary Report By: Gordo Lyon MDElectronically Signed By: Fei Wisdom MD Dictated Date: 12/09/2016 8:52:41 PM Prelim Date: 12/09/2016 8:59:20 PM Sign Date: 12/09/2016 10:43:49 PM Normal [facility] [place] [facility] [place] THORAX W/O CONTRASTon CT THORAX W/O CONTRAST ORIGINALClinical history: Trauma due to a fall. COMPARISON: Chest x-ray on 12/13/2016. CT scan of the chest on 12/09/2016. Axial scans were obtained through the chest. Intravenous contrast was not given for this examination. Scans were reviewed in axial and coronal planes of reconstruction. This exam was performed according to our departmental dose optimization program, and includes the following measures where applicable: automated exposure control, adjustment of the mAs and/or kVp according to patient size and/or exam, and an iterative reconstruction algorithm. There is no mediastinal hematoma. The heart size is normal. No pericardial effusion is present. Small bilateral pleural effusions are present. There are moderate size areas of airspace consolidation in both lower lobes. These are significantly increased in size. There is no pneumothorax. Fractures of the left second through eighth ribs are seen posteriorly without significant displacement. There are fractures of the left seventh through ninth ribs laterally without significant displacement. The thoracic spine alignment is normal with no sign of fracture of thoracic vertebral bodies. Comminuted left clavicle fracture is also seen. No acute abnormality is seen in the upper abdomen. IMPRESSION: Small bilateral pleural effusions and moderate size infiltrate in both lower lobes are likely atelectasis and are new compared with previous exam. No pneumothorax. Multiple left rib fractures as well as left clavicle fracture again noted. Interpreted By: Henrik Thomas MDPreliminary Report By: Henrik Thomas MDElectronically Signed By: Henrik Thomas MD Dictated Date: 12/13/2016 11:16:26 PM Prelim Date: 12/13/2016 11:16:26 PM Sign Date: 12/13/2016 11:22:35 PM Normal [place] [place] [facility] [place] Depart Summaryon 12-14-2016 Depart Summary Normal [facility] [place] [facility] [place] Inpatient Patient Summaryon 12-14-2016 Inpatient Patient Summary Normal [facility]) Pulmonology Progress Noteon 12-14-2016 Pulmonology Progress Note Normal [facility]) Cardiac EP Progress Noteon 0 12-13-2016 Cardiac EP Progress Note Normal [facility]) Marketing Finance Specialist Progress Noteon 12-13-2016 Marketing Finance Specialist Progress Note Normal [facility]) Pulmonology Progress Noteon 12-13-2016 Pulmonology Progress Note Normal [facility] [place] [facility] [place] Trauma Progress Noteon 12-13 Trauma Progress Note Normal [facility]) XR CHEST 1 VIEWon 12-13-2016 XR CHEST 1 VIEW ORIGINALClinical his tory: Acute respiratory failure. Follow-up pneumothorax. COMPARISON: Chest x-ray on 12/11/2016. Portable AP radiograph of the chest was obtained at 5:48 AM. The heart size is normal. There is increased density at both lung bases that appears be a combination of airspace disease and pleural fluid. This is greater on the left than on the right. There is no pneumothorax. Left rib fractures are again noted. IMPRESSION: Increasing bilateral basilar consolidation and pleural fluid bilaterally. No pneumothorax. Interpreted By: Henrik Thomas MDPreliminary Report By: Henrik Thomas MDElectronically Signed By: Henrik Thomas MD Dictated Date: 12/13/2016 7:10:28 AM Prelim Date: 12/13/2016 7:10:28 AM Sign Date: 12/13/2016 7:12:16 AM Normal [facility]) Critical Care Consultationon 12-12-2016 Critical Care Consultation Normal [place] [place] [facility] [place] Progress Noteon 12-12-2016 Progress Note Normal [facility] [facility] [place] .Auto Diffon 12-11-2016 Basophils Auto #/vol (Bld) 0.00 10 3/mcL Normal 0.00-0.27 Pending [facility] [place] Comment on above: Performed By: #### C BC, LIP, CMP, GFR, ERDS, ADIFF, MORPH, ANEU ####[address] [address] Basophils/100 WBC Auto (Bld) 0.3 % Normal 0.0-2.5 Pending [facility] [place] Comment on above: Performed By: #### C BC, LIP, CMP, GFR, ERDS, ADIFF, MORPH, ANEU ####[address] [address] Eosinophils 0.10 10 3/mcL Normal 0.00-0.65 Pending [facility] [place] Comment on above: Performed By: #### C BC, LIP, CMP, GFR, ERDS, ADIFF, MORPH, ANEU ####[address] [address] Eosinophils/100 leukocytes 0.5 % Normal 0.0-6.0 Pending [facility] [place] Comment on above: Performed By: #### C BC, LIP, CMP, GFR, ERDS, ADIFF, MORPH, ANEU ####[address] [address] Lymphocytes 2.10 10 3/mcL Normal 0.90-4.32 [facility] [place] Comment on above: Performed By: #### C BC, LIP, CMP, GFR, ERDS, ADIFF, MORPH, ANEU ####[address] [address] Lymphocytes/100 leukocytes 19.1 % Low 20.0-40.0 [facility]ending [facility] [place] Comment on above: Performed By: #### C BC, LIP, CMP, GFR, ERDS, ADIFF, MORPH, ANEU ####[address] [address] Monocytes 0.80 10 3/mcL Normal 0.09-1.40 P[facility] [place] Comment on above: Performed By: #### C BC, LIP, CMP, GFR, ERDS, ADIFF, MORPH, ANEU ####[place] [address] Monocytes/100 leukocytes 7.2 % Normal 2.0-13.0 [facility]ending [facility] [place] Comment on above: Performed By: #### C BC, LIP, CMP, GFR, ERDS, ADIFF, MORPH, ANEU ####[place] [address] Neutrophils/100 WBC Auto (Bld) 72.9 % Normal 50.0-75.0 [facility] [place] Comment on above: Performed By: #### C BC, LIP, CMP, GFR, ERDS, ADIFF, MORPH, ANEU ####[place] [address] .NEUABSon 12-11-2016 Neutrophils 7.90 10 3/mcL Normal 2.25-8.10 [facility] [place] Comment on above: Performed By: #### C BC, LIP, CMP, GFR, ERDS, ADIFF, MORPH, ANEU ####[place] [address] BMPon 12-11-2016 Calcium 8.1 mg/dL Low 8.4-10.1 P[facility] [place] Comment on above: Performed By: #### C BC, LIP, CMP, GFR, ERDS, ADIFF, MORPH, ANEU ####[place] [address] BUN/Creatinine Ratio 12.0 ratio Normal 10.0-22.0 [facility] [place] Comment on above: Performed By: #### C BC, LIP, CMP, GFR, ERDS, ADIFF, MORPH, ANEU ####[place] [address] Chloride 105 mmol/L Normal 98-110 Pending [facility] [place] Comment on above: Performed By: #### C BC, LIP, CMP, GFR, ERDS, ADIFF, MORPH, ANEU ####[place] [id number] CO2 29 mmol/L Normal 22-32 Pending [facility] [place] Comment on above: Performed By: #### C BC, LIP, CMP, GFR, ERDS, ADIFF, MORPH, ANEU ####[place] [address] Creatinine 0.92 mg/dL Normal 0.60-1.40 P[facility] [place] Comment on above: Performed By: #### C BC, LIP, CMP, GFR, ERDS, ADIFF, MORPH, ANEU ####[place] [address] Electrolyte Balance 8.0 mEq/L Normal 4.0-15.0 [facility] [place] Comment on above: Performed By: #### C BC, LIP, CMP, GFR, ERDS, ADIFF, MORPH, ANEU ####[place] [address] Glucose mass conc 97 mg/dL Normal 82-115 Pending [facility] [place] Comment on above: Performed By: #### C BC, LIP, CMP, GFR, ERDS, ADIFF, MORPH, ANEU ####[place] [address] Potassium molar conc 4.3 mmol/L Normal 3.5-5.0 [facility] [place] Comment on above: Performed By: #### C BC, LIP, CMP, GFR, ERDS, ADIFF, MORPH, ANEU ####[place] [address] Sodium 142 mmol/L Normal 136-145 Pending [facility] [place] Comment on above: Performed By: #### C BC, LIP, CMP, GFR, ERDS, ADIFF, MORPH, ANEU ####[place] [address] Urea nitrogen 11.0 mg/dL Normal 8.0-22.0 [facility] [place] Comment on above: Performed By: #### C BC, LIP, CMP, GFR, ERDS, ADIFF, MORPH, ANEU ####[place] [address] CBCon 12-11-2016 Erythrocyte distribution width Auto Ratio (RBC) 14.8 % Normal 11.5-15.5 [facility] [place] Comment on above: Performed By: #### C BC, LIP, CMP, GFR, ERDS, ADIFF, MORPH, ANEU ####[place] [address] Erythrocytes (RBC) 4.73 10 6/mcL Normal 4.50-6.00 [facility] [place] Comment on above: Performed By: #### C BC, LIP, CMP, GFR, ERDS, ADIFF, MORPH, ANEU ####[place] [address] Hematocrit (HCT) 43.7 % Normal 40.0-52.0 [facility] [place] Comment on above: Performed By: #### C BC, LIP, CMP, GFR, ERDS, ADIFF, MORPH, ANEU ####[place] [address] Hemoglobin mass conc (Bld) 14.2 G/dL Normal 13.0-17.5 Pending [facility] [place] Comment on above: Performed By: #### C BC, LIP, CMP, GFR, ERDS, ADIFF, MORPH, ANEU ####[place] [address] MCH 30.0 pg Normal 27.0-33.0 Pending [facility] [place] Comment on above: Performed By: #### C BC, LIP, CMP, GFR, ERDS, ADIFF, MORPH, ANEU ####[place] [address] MCHC mass conc (RBC) 32.5 G/dL Normal 32.0-36.0 Pending [facility] [place] Comment on above: Performed By: #### C BC, LIP, CMP, GFR, ERDS, ADIFF, MORPH, ANEU ####[place] [address] MCV 92.4 fL Normal 81.0-100.0 [facility]ending [facility] [place] Comment on above: Performed By: #### C BC, LIP, CMP, GFR, ERDS, ADIFF, MORPH, ANEU ####[place] [id number] [address] [place] [address] Platelet mean volume (PMV) 9.5 fL Normal 6.4-10.5 Pending [facility] [place] Comment on above: Performed By: #### C BC, LIP, CMP, GFR, ERDS, ADIFF, MORPH, ANEU ####[place] [id number] [place] [address] Platelets 145 10 3/mcL Low 150-450 Pending [facility] [place] Comment on above: Performed By: #### C BC, LIP, CMP, GFR, ERDS, ADIFF, MORPH, ANEU ####[place] [id number] [place] [address] WBC (Leukocytes) 10.80 10 3/mcL Normal 4.50-10.80 [facility] ([place] Comment on above: Performed By: #### C BC, LIP, CMP, GFR, ERDS, ADIFF, MORPH, ANEU ####[address] [address] Cardiac EP Progress Noteon 0 12-11-2016 Cardiac EP Progress Note Normal [facility] [place] Marketing Finance Specialist Progress Noteon 12-11-2016 Marketing Finance Specialist Progress Note Normal [facility] [place] [facility] [place] Consultation Noteon 12-12-19 17 Consultation Note Normal [facility]) GFRon 12-11-2016 eGFR (non-black) mL/min/{1.73_m2} Normal [facility] ([place]) Comment on above: Result Comment: GFR Population mean for , Non- Americans Ages 20-29 = 116 mL/min/1.73 sq.m. Ages 30-39 = 107 mL/min/1.73 sq.m. Ages 40-49 = 99 mL/min/1.73 sq.m. Ages 50-59 = 93 mL/min/1.73 sq.m. Ages 60-69 = 85 mL/min/1.73 sq.m. Ages 70+ = 75 mL/min/1.73 sq.m.Chronic Kidney Disease: Less than 60 mL/min/1.73 square metersEnd Stage Renal Disease: Less than 15 mL/min/1.73 square meters Performed By: #### C BC, LIP, CMP, GFR, ERDS, ADIFF, MORPH, ANEU ####[address] [address] Progress Note-Nurseon 2016 Progress Note-Nurse Normal [facility] [place] Rounding Noteon 12-11-2016 Rounding Note Normal Pending [facility] [place] XR CHEST 1 VIEWon 12-11-2016 XR CHEST 1 VIEW ORIGINALClinical his tory: Follow-up pneumothorax. COMPARISON: Chest x-ray on 12/10/2016. Portable AP radiograph of the chest was obtained at 6:05 AM. A small left pleural effusion and left basilar infiltrate are present. This is unchanged since the prior day. There is no pneumothorax. The right lung is well-expanded. No new abnormality has developed. IMPRESSION: Small left pleural effusion with small left basilar infiltrate is likely atelectasis. Interpreted By: Henrik Thomasreliminary Report By: Henrik Thomas MDElectronically Signed By: Henrik Thomas MD Dictated Date: 12/11/2016 7:13:48 AM Prelim Date: 12/11/2016 7:13:48 AM Sign Date: 12/11/2016 7:15:30 AM Normal [facility] [place] .Auto Diffon 12-10-2016 Basophils Auto #/vol (Bld) 0.10 10 3/mcL Normal 0.00-0.27 Pending [facility] [place] Comment on above: Performed By: #### C BC, LIP, CMP, GFR, ERDS, ADIFF, MORPH, ANEU ####[address] [address] Basophils/100 WBC Auto (Bld) 0.6 % Normal 0.0-2.5 Pending [facility] [place] Comment on above: Performed By: #### C BC, LIP, CMP, GFR, ERDS, ADIFF, MORPH, ANEU ####[address] [address] Eosinophils 0.00 10 3/mcL Normal 0.00-0.65 Pending [facility] [place] Comment on above: Performed By: #### C BC, LIP, CMP, GFR, ERDS, ADIFF, MORPH, ANEU ####[address] [address] Eosinophils/100 leukocytes 0.1 % Normal 0.0-6.0 Pending [facility] [place] Comment on above: Performed By: #### C BC, LIP, CMP, GFR, ERDS, ADIFF, MORPH, ANEU ####[address] [address] Lymphocytes 2.20 10 3/mcL Normal 0.90-4.32 Pending [facility] [place] Comment on above: Performed By: #### C BC, LIP, CMP, GFR, ERDS, ADIFF, MORPH, ANEU ####[address] [address] Lymphocytes/100 leukocytes 16.8 % Low 20.0-40.0 Pending [facility] [place] Comment on above: Performed By: #### C BC, LIP, CMP, GFR, ERDS, ADIFF, MORPH, ANEU ####[address] [address] Monocytes 0.80 10 3/mcL Normal 0.09-1.40 Pending [facility] [place] Comment on above: Performed By: #### C BC, LIP, CMP, GFR, ERDS, ADIFF, MORPH, ANEU ####[address] [address] Monocytes/100 leukocytes 6.0 % Normal 2.0-13.0 Pending [facility] [place] Comment on above: Performed By: #### C BC, LIP, CMP, GFR, ERDS, ADIFF, MORPH, ANEU ####[address] [address] Neutrophils/100 WBC Auto (Bld) 76.5 % High 50.0-75.0 Pending [facility] [place] Comment on above: Performed By: #### C BC, LIP, CMP, GFR, ERDS, ADIFF, MORPH, ANEU ####[address] [address] .NEUABSon 12-10-2016 Neutrophils 9.80 10 3/mcL High 2.25-8.10 Pending [facility] [place] Comment on above: Performed By: #### C BC, LIP, CMP, GFR, ERDS, ADIFF, MORPH, ANEU ####[place] [address] CBCon 12-10-2016 Erythrocyte distribution width Auto Ratio (RBC) 14.6 % Normal 11.5-15.5 Pending [facility] [place] Comment on above: Performed By: #### C BC, LIP, CMP, GFR, ERDS, ADIFF, MORPH, ANEU ####[place] [address] Erythrocytes (RBC) 5.17 10 6/mcL Normal 4.50-6.00 [facility] ([place]) Comment on above: Performed By: #### C BC, LIP, CMP, GFR, ERDS, ADIFF, MORPH, ANEU ####[place] [address] Hematocrit (HCT) 47.8 % Normal 40.0-52.0 [facility] [place] Comment on above: Performed By: #### C BC, LIP, CMP, GFR, ERDS, ADIFF, MORPH, ANEU ####[place] [address] Hemoglobin mass conc (Bld) 15.7 G/dL Normal 13.0-17.5 [facility]ending [facility] [place] Comment on above: Performed By: #### C BC, LIP, CMP, GFR, ERDS, ADIFF, MORPH, ANEU ####[place] [address] MCH 30.4 pg Normal 27.0-33.0 [facility]ending [facility] [place] Comment on above: Performed By: #### C BC, LIP, CMP, GFR, ERDS, ADIFF, MORPH, ANEU ####[place] [address] MCHC mass conc (RBC) 32.9 G/dL Normal 32.0-36.0 Pending Sale To [facility] ([place]) Comment on above: Performed By: #### C BC, LIP, CMP, GFR, ERDS, ADIFF, MORPH, ANEU ####[place] [address] MCV 92.5 fL Normal 81.0-100.0 Pending Sale To [facility] ([place]) Comment on above: Performed By: #### C BC, LIP, CMP, GFR, ERDS, ADIFF, MORPH, ANEU ####[address] [address] Platelet mean volume (PMV) 10.1 fL Normal 6.4-10.5 [facility] [place] Comment on above: Performed By: #### C BC, LIP, CMP, GFR, ERDS, ADIFF, MORPH, ANEU ####[address] [address] Platelets 163 10 3/mcL Normal 150-450 Pending [facility] [place] Comment on above: Performed By: #### C BC, LIP, CMP, GFR, ERDS, ADIFF, MORPH, ANEU ####[address] [address] WBC (Leukocytes) 12.80 10 3/mcL High 4.50-10.80 [facility] ([place] Comment on above: Performed By: #### C BC, LIP, CMP, GFR, ERDS, ADIFF, MORPH, ANEU ####[address] [address] [address] ABD/PELVIS W/ IV CONTRAST ONLYon 12-10-2016 CT ABD/PELVIS W/ IV CONTRAST ONLY ORIGINALCT ABD/PELVIS W/ IV CONTRAST ONLY CLINICAL STATEMENT: pain; trauma patient COMPARISON: Pelvic radiograph 12/09/2016 EXAM: Computerized tomography of the abdomen and pelvis with IV contrast, with axial plan images and post processing and coronal reconstruction views. This exam was performed according to our departmental dose optimization program, and includes the following measures where applicable: automated exposure control, adjustment of the mAs and/or kVp according to patient size and/or exam, and an iterative reconstruction algorithm. FINDINGS: A dedicated CT of chest is dictated in a separate report. There is a small hiatal hernia. The liver, spleen, kidneys, adrenal glands, pancreas, and gallbladder demonstrate no acute abnormalities. There are subcentimeter hypodensities within the kidneys bilaterally, statistically representing cysts. The small bowel and colon are within normal limits, demonstrating no obstructive or inflammatory process. The appendix is normal. No adenopathy, free air or free fluid is evident. The aorta and IVC are normal in course and caliber. The urinary bladder is normal. The prostate is normal in appearance. There is redemonstration of numerous left rib fractures, for further details please see the associated CT thorax report from the same day. No additional fracture or dislocation is identified. IMPRESSION: 1. No acute abdominal or pelvic findings.2. Redemonstration of numerous left rib fractures. I have personally reviewed the images of this examination and agree with the resident's findings and interpretation. Interpreted By: Fei Wisdom MDPreliminary Report By: Gordo Lyon MDElectronically Signed By: Fei Wisdom MD Dictated Date: 12/09/2016 9:00:52 PM Prelim Date: 12/09/2016 9:05:20 PM Sign Date: 12/09/2016 10:44:52 PM Normal [facility] [place] HEAD OR BRAIN W/O CONTRAS Ton 12-10-2016 CT HEAD OR BRAIN W/O CONTRAST ORIGINALCT Head or Brain W/O Contrast INDICATION: pain; trauma patient COMPARISON: None TECHNIQUE: Routine CT Head without IV contrast. This exam was performed according to our departmental dose optimization program, and includes the following measures where applicable: automated exposure control, adjustment of the mAs and/or kVp according to patient size and/or exam, and an iterative reconstruction algorithm. FINDINGS: No acute infarct, hemorrhage, or mass is identified. The ventricles and sulci are within normal limits. Wells-white differentiation is maintained. The posterior fossa is unremarkable. The calvaria and skull base are intact. The paranasal sinuses and mastoid air cells are clear. IMPRESSION: No acute findings. I have personally reviewed the images of this examination and agree with the resident's findings and interpretation. Interpreted By: Fei Wisdomreliminary Report By: Gordo Lyon MDElectronically Signed By: Fei Wisdom MD Dictated Date: 12/09/2016 8:39:15 PM Prelim Date: 12/09/2016 8:39:42 PM Sign Date: 12/09/2016 10:40:15 PM Normal [facility] [place] SPINE CERVICAL W/O CONTRA STon 12-10-2016 CT SPINE CERVICAL W/O CONTRAST ORIGINALCT CERVICAL SPINE WITHOUT CONTRAST, WITH POST PROCESSING, REFORMATTED IMAGES AND 3-D RENDERING Clinical Statement: pain; trauma patient TECHNIQUE: Multiple-row detector helical CT examination of the cervical spine without IV contrast. Axial, sagittal, and coronal reconstructed images. 3-D reconstructions were performed on a separate workstation. This exam was performed according to our departmental dose optimization program, and includes the following measures where applicable: automated exposure control, adjustment of the mAs and/or kVp according to patient size and/or exam, and an iterative reconstruction algorithm. COMPARISON: None. FINDINGS: Degenerative changes noted throughout the cervical spine. There is multilevel disc space loss, most prominent at C5-C6 and C6-C7. There is no fracture or dislocation. Facet arthropathy is most severe at C2-C3 on the right. There are prominent disc osteophyte complexes in the lower cervical spine. No significant central canal or neural foraminal stenosis is present. Vertebral body heights are maintained. No aggressive osseous lesions are identified. The prevertebral and paraspinal soft tissues demonstrate no acute abnormality. There is a small left apical pneumothorax. Subpleural cysts are noted on the right. There is a left second rib fracture posteriorly. IMPRESSION:1. Posterior left second and third rib fractures.2. Small left apical pneumothorax.3. No cervical spine fracture. I have personally reviewed the images of this examination and agree with the resident's findings and interpretation. Interpreted By: Fei Wisdom MDPreliminary Report By: Gordo Lyon MDElectronically Signed By: Fei Wisdom MD Dictated Date: 12/09/2016 8:40:54 PM Prelim Date: 12/09/2016 8:44:18 PM Sign Date: 12/09/2016 10:41:43 PM Normal [facility]) ED Note-Provideron 7 ED Note-Provider Normal [facility]) History and Physicalon 12-10 History and Physical Normal [facility]) Orthopedic Consultationon Orthopedic Consultation Normal [facility]) XR CHEST 1 VIEWon 12-10-2016 XR CHEST 1 VIEW ORIGINALXR CHEST 1 V IEW CLINICAL STATEMENT: rib fractures, pneumothorax COMPARISON: XR Chest 12/09/2016, CT thorax 12/09/2016 FINDINGS: A portable exam of the chest was performed on 12/10/2016 at 7:33 AM. The heart size is within normal limits. There is a hazy opacity at the left lung base, unchanged from prior film. The pulmonary vasculature is within normal limits. There is no pleural effusion. Multiple left sided rib fractures are again visualized. IMPRESSION: Stable left basilar opacity, most likely atelectasis. Redemonstration of multiple left sided rib fractures. No new acute findings. I have personally reviewed the images of this examination and agree with the resident's findings and interpretation. Interpreted By: Phil Eatonreliminary Report By: Sammie Buckner MDElectronically Signed By: Phil Eaton MD Dictated Date: 12/10/2016 8:11:26 AM Prelim Date: 12/10/2016 9:44:56 AM Sign Date: 12/10/2016 11:11:53 AM Normal Pending [place] To [facility] [place] .Auto Diffon 12-09-2016 Basophils Auto #/vol (Bld) 0.00 10 3/mcL Normal 0.00-0.27 Pending Sale To [facility] [place] Comment on above: Performed By: #### C BC, LIP, CMP, GFR, ERDS, ADIFF, MORPH, ANEU ####[address] [address] Basophils/100 WBC Auto (Bld) 0.2 % Normal 0.0-2.5 Pending Sale To [facility] [place] Comment on above: Performed By: #### C BC, LIP, CMP, GFR, ERDS, ADIFF, MORPH, ANEU ####[address] [address] Eosinophils 0.00 10 3/mcL Normal 0.00-0.65 Pending Sale To [facility] [place] Comment on above: Performed By: #### C BC, LIP, CMP, GFR, ERDS, ADIFF, MORPH, ANEU ####[address] [address] Eosinophils/100 leukocytes 0.1 % Normal 0.0-6.0 Pending Sale To [facility] [place] Comment on above: Performed By: #### C BC, LIP, CMP, GFR, ERDS, ADIFF, MORPH, ANEU ####[address] [address] Lymphocytes 1.30 10 3/mcL Normal 0.90-4.32 Pending Sale To [facility] [place] Comment on above: Performed By: #### C BC, LIP, CMP, GFR, ERDS, ADIFF, MORPH, ANEU ####[address] [address] Lymphocytes/100 leukocytes 5.8 % Low 20.0-40.0 Pending Sale To [facility] [place] Comment on above: Performed By: #### C BC, LIP, CMP, GFR, ERDS, ADIFF, MORPH, ANEU ####[address] [address] Monocytes 1.00 10 3/mcL Normal 0.09-1.40 Pending Sale To [facility] [place] Comment on above: Performed By: #### C BC, LIP, CMP, GFR, ERDS, ADIFF, MORPH, ANEU ####[address] [address] Monocytes/100 leukocytes 4.5 % Normal 2.0-13.0 Pending Sale To [facility] [place] Comment on above: Performed By: #### C BC, LIP, CMP, GFR, ERDS, ADIFF, MORPH, ANEU ####[address] [address] Neutrophils/100 WBC Auto (Bld) 89.4 % High 50.0-75.0 Pending [facility] To [facility] [place] Comment on above: Performed By: #### C BC, LIP, CMP, GFR, ERDS, ADIFF, MORPH, ANEU ####[address] [address] .Morphon 12-09-2016 Erythrocyte morphology Normal Normal Pending [facility] To [facility] [place] Comment on above: Performed By: #### C BC, LIP, CMP, GFR, ERDS, ADIFF, MORPH, ANEU ####[address] [address] Ovalocytes Few Normal Pending Sale To [facility] [place] Comment on above: Performed By: #### C BC, LIP, CMP, GFR, ERDS, ADIFF, MORPH, ANEU ####[address] [address] Platelets Normal Normal Pending Sale To [facility] [place] Comment on above: Performed By: #### C BC, LIP, CMP, GFR, ERDS, ADIFF, MORPH, ANEU ####[place] [address] .NEUABSon 12-09-2016 Neutrophils 19.60 10 3/mcL High 2.25-8.10 Pending Sale To [facility] [place] Comment on above: Performed By: #### C BC, LIP, CMP, GFR, ERDS, ADIFF, MORPH, ANEU ####[place] [address] APTTon 12-09-2016 aPTT 23.6 s Low 25.0-35.0 Pending Sale To [facility] [place] Comment on above: Result Comment: For Heparin anticoagulation therapy, the recommendedtherapeutic range is: 54-77 seconds (APTT Correlationwith Anti-Xa therapeutic range of 0.3-0.7 units/ml).PLEASE REFERENCE THE PHARMACY PROTOCOL FOR DOSING. Performed By: #### A PTT, PRO ####[place] [address] aPTT Unknown Normal Pending [facility] To [facility] [place] Comment on above: Performed By: #### A PTT, PRO ####[place] [address] CBCon 12-09-2016 Erythrocyte distribution width Auto Ratio (RBC) 14.7 % Normal 11.5-15.5 Pending Sale To [facility] [place] Comment on above: Performed By: #### C BC, LIP, CMP, GFR, ERDS, ADIFF, MORPH, ANEU ####[place] [address] Erythrocytes (RBC) 5.53 10 6/mcL Normal 4.50-6.00 [facility] ([place]) Comment on above: Performed By: #### C BC, LIP, CMP, GFR, ERDS, ADIFF, MORPH, ANEU ####[place] [address] Hematocrit (HCT) 50.3 % Normal 40.0-52.0 Pending Sale To [facility] [place] Comment on above: Performed By: #### C BC, LIP, CMP, GFR, ERDS, ADIFF, MORPH, ANEU ####[place] [address] Hemoglobin mass conc (Bld) 16.7 G/dL Normal 13.0-17.5 Pending Sale To [facility] [place] Comment on above: Performed By: #### C BC, LIP, CMP, GFR, ERDS, ADIFF, MORPH, ANEU ####[place] [address] MCH 30.1 pg Normal 27.0-33.0 Pending Sale To [facility] [place] Comment on above: Performed By: #### C BC, LIP, CMP, GFR, ERDS, ADIFF, MORPH, ANEU ####[place] [address] MCHC mass conc (RBC) 33.1 G/dL Normal 32.0-36.0 Pending [facility] To [facility] [place] Comment on above: Performed By: #### C BC, LIP, CMP, GFR, ERDS, ADIFF, MORPH, ANEU ####[place] [address] MCV 91.0 fL Normal 81.0-100.0 Pending Sale To [facility] [place] Comment on above: Performed By: #### C BC, LIP, CMP, GFR, ERDS, ADIFF, MORPH, ANEU ####[place] [address] Platelet mean volume (PMV) 9.1 fL Normal 6.4-10.5 Pending Sale To [facility] [place] Comment on above: Performed By: #### C BC, LIP, CMP, GFR, ERDS, ADIFF, MORPH, ANEU ####[place] [address] Platelets 161 10 3/mcL Normal 150-450 Pending Sale To [facility] [place] Comment on above: Performed By: #### C BC, LIP, CMP, GFR, ERDS, ADIFF, MORPH, ANEU ####[place] [address] WBC (Leukocytes) 22.00 10 3/mcL High 4.50-10.80 [facility] ([place]) Comment on above: Performed By: #### C BC, LIP, CMP, GFR, ERDS, ADIFF, MORPH, ANEU ####[place] [address] CMPon 12-09-2016 Alanine aminotransferase (ALT) 25 U/L Normal 12-55 Pending Sale To [facility] [place] Comment on above: Performed By: #### C BC, LIP, CMP, GFR, ERDS, ADIFF, MORPH, ANEU ####[place] [address] Albumin 3.9 G/dL Normal 3.2-4.8 Pending Sale To [facility] [place] Comment on above: Performed By: #### C BC, LIP, CMP, GFR, ERDS, ADIFF, MORPH, ANEU ####[place] [address] Albumin/Globulin Ratio 1.0 {ratio} Normal 0.9-1.6 Pending Sale To [facility] [place] Comment on above: Performed By: #### C BC, LIP, CMP, GFR, ERDS, ADIFF, MORPH, ANEU ####[place] [address] Alk Phos 84 U/L Normal 38-126 Pending Sale To [facility] [place] Comment on above: Performed By: #### C BC, LIP, CMP, GFR, ERDS, ADIFF, MORPH, ANEU ####[place] [address] Aspartate aminotransferase (AST) 47 U/L High 8-34 Pending Sale To [facility] [place] Comment on above: Performed By: #### C BC, LIP, CMP, GFR, ERDS, ADIFF, MORPH, ANEU ####[place] [address] Bili Total 0.4 mg/dL Normal 0.2-1.2 Pending Sale To [facility] [place] Comment on above: Performed By: #### C BC, LIP, CMP, GFR, ERDS, ADIFF, MORPH, ANEU ####[place] [address] BUN/Creatinine Ratio 9.7 ratio Low 10.0-22.0 Pending Sale To [facility] [place] Comment on above: Performed By: #### C BC, LIP, CMP, GFR, ERDS, ADIFF, MORPH, ANEU ####[place] [address] Calcium 9.0 mg/dL Normal 8.4-10.1 Pending Sale To [facility] [place] Comment on above: Performed By: #### C BC, LIP, CMP, GFR, ERDS, ADIFF, MORPH, ANEU ####[place] [address] Chloride 109 mmol/L Normal 98-110 Pending Sale To [facility] [place] Comment on above: Performed By: #### C BC, LIP, CMP, GFR, ERDS, ADIFF, MORPH, ANEU ####[place] [address] CO2 24 mmol/L Normal 22-32 Pending Sale To [facility] [place] Comment on above: Performed By: #### C BC, LIP, CMP, GFR, ERDS, ADIFF, MORPH, ANEU ####[place] [address] Creatinine 0.93 mg/dL Normal 0.60-1.40 Pending Sale To [facility] [place] Comment on above: Performed By: #### C BC, LIP, CMP, GFR, ERDS, ADIFF, MORPH, ANEU ####[place] [address] Electrolyte Balance 10.0 mEq/L Normal 4.0-15.0 [facility] ([place]) Comment on above: Performed By: #### C BC, LIP, CMP, GFR, ERDS, ADIFF, MORPH, ANEU ####[place] [address] Globulin 4.0 G/dL High 1.5-3.8 Pending Sale To [facility] [place] Comment on above: Performed By: #### C BC, LIP, CMP, GFR, ERDS, ADIFF, MORPH, ANEU ####[place] [address] Glucose mass conc 95 mg/dL Normal 82-115 Pending Sale To [facility] [place] Comment on above: Performed By: #### C BC, LIP, CMP, GFR, ERDS, ADIFF, MORPH, ANEU ####[place] [address] Potassium molar conc 3.9 mmol/L Normal 3.5-5.0 Pending Sale To [facility] [place] Comment on above: Performed By: #### C BC, LIP, CMP, GFR, ERDS, ADIFF, MORPH, ANEU ####[place] [address] Protein 7.9 G/dL Normal 6.0-8.5 Pending Sale To [facility] [place] Comment on above: Performed By: #### C BC, LIP, CMP, GFR, ERDS, ADIFF, MORPH, ANEU ####[place] [address] Sodium 143 mmol/L Normal 136-145 Pending Sale To [facility] [place] Comment on above: Performed By: #### C BC, LIP, CMP, GFR, ERDS, ADIFF, MORPH, ANEU ####[place] [address] Urea nitrogen 9.0 mg/dL Normal 8.0-22.0 Pending [facility] [place] Comment on above: Performed By: #### C BC, LIP, CMP, GFR, ERDS, ADIFF, MORPH, ANEU ####[place] [address] ERDSon 12-09-2016 Acetaminophen mass conc <2.0 Low 10.0-30.0 Pending [facility] [place] Comment on above: Performed By: #### C BC, LIP, CMP, GFR, ERDS, ADIFF, MORPH, ANEU ####[place] [address] ER Drug Screen (s) Positive Abnormal [facility] ([place]) Comment on above: Performed By: #### C BC, LIP, CMP, GFR, ERDS, ADIFF, MORPH, ANEU ####[place] [address] ER Drug Screen Interp The serum shows evidence of: _ Invalid Interpretation Code Pending Sale To [facility] [place] Comment on above: Performed By: #### C BC, LIP, CMP, GFR, ERDS, ADIFF, MORPH, ANEU ####[place] [address] TCA (s) Negative Normal Pending Sale To [facility] [place] Comment on above: Performed By: #### C BC, LIP, CMP, GFR, ERDS, ADIFF, MORPH, ANEU ####[place] [address] Salicylate Lvl (ds) 3.4 mg/dL Low 10.0-25.0 [facility] ([place]) Comment on above: Performed By: #### C BC, LIP, CMP, GFR, ERDS, ADIFF, MORPH, ANEU ####[place] [address] ER Serum Drugs Screened: See Below Normal Pending [facility] To [facility] [place] Comment on above: Result Comment: This drug screen is a presumptive screening only. No confirmation will be performed unless requested.Drugs included in the ER serum drug screen are: ThresholdEthanol 10.0 mg/dLSalicylate 2.0 mg/dLAcetaminophen 2.0 mcg/mLTricyclic Antidepressants 300 ng/mLTesting has been performed FOR MEDICAL PURPOSES ONLY. Performed By: #### C BC, LIP, CMP, GFR, ERDS, ADIFF, MORPH, ANEU ####[place] [address] Ethanol Level 104.0 mg/dL Normal Pending [facility] To [facility] [place] Comment on above: Performed By: #### C BC, LIP, CMP, GFR, ERDS, ADIFF, MORPH, ANEU ####[place] [address] GFRon 12-09-2016 eGFR (non-black) mL/min/{1.73_m2} Normal [facility] ([place]) Comment on above: Result Comment: GFR Population mean for , Non- Americans Ages 20-29 = 116 mL/min/1.73 sq.m. Ages 30-39 = 107 mL/min/1.73 sq.m. Ages 40-49 = 99 mL/min/1.73 sq.m. Ages 50-59 = 93 mL/min/1.73 sq.m. Ages 60-69 = 85 mL/min/1.73 sq.m. Ages 70+ = 75 mL/min/1.73 sq.m.Chronic Kidney Disease: Less than 60 mL/min/1.73 square metersEnd Stage Renal Disease: Less than 15 mL/min/1.73 square meters Performed By: #### C BC, LIP, CMP, GFR, ERDS, ADIFF, MORPH, ANEU ####[place] [address] LIPon 12-09-2016 Lipase Level 96 U/L Normal 73-393 Pending [facility] To [facility] [place] Comment on above: Performed By: #### C BC, LIP, CMP, GFR, ERDS, ADIFF, MORPH, ANEU ####[place] [address] PROon 12-09-2016 INR Coag RelTime (PPP) 0.9 {INR} Normal Pending Sale To [facility] [place] Comment on above: Result Comment: The [place] [employer] (CHEST, 1992, [id number])recommended therapeutic range for oral anticoagulant therapy is:LOW RISK: Prophylaxis of venous thrombosis INR: 2.0-3.0 Treatment of pulmonary embolism 2.0-3.0 Prevention of systemic embolism 2.0-3.0HIGH RISK: Mechanical prosthetic valves 2.5-3.5 Performed By: #### A PTT, PRO ####[place] [address] Prothrombin time (PT) Coag time (PPP) 10.8 s Normal 9.0-14.4 Pending Sale To [facility] [place] Comment on above: Result Comment: Effe ctive 11/24/07, Protime results may be affected by some antibiotics (i.e. Ciprofloxacin, Azithromycin, Bactrim) which may potentiate the action of oral anticoagulants, with further increases in Protime/INR. Performed By: #### A PTT, PRO ####[place] [address] XR CHEST 1 VIEWon 12-09-2016 XR CHEST 1 VIEW ORIGINALXR CHEST 1 V IEW Clinical Statement: pain; trauma patient Comparison: None FINDINGS: The heart size is within normal limits. There is hazy opacity at the left lung base, likely representing atelectasis or scarring. No effusion is identified. The pulmonary vasculature is within normal limits. Degenerative change within the left acromioclavicular joint is noted. IMPRESSION: Left basilar scarring or atelectasis. No other acute findings. I have personally reviewed the images of this examination and agree with the resident's findings and interpretation. Interpreted By: Fei Wisdom MDPreliminary Report By: Gordo Lyon MDElectronically Signed By: Fei Wisdom MD Dictated Date: 12/09/2016 8:05:14 PM Prelim Date: 12/09/2016 8:08:38 PM Sign Date: 12/09/2016 8:26:57 PM Normal Pending [facility] [place] XR PELVIS 1 OR 2 VIEWSon XR PELVIS 1 OR 2 VIEWS ORIGINALXR PELVIS 1 OR 2 VIEWS CLINICAL STATEMENT: pain; trauma patient COMPARISON: None FINDINGS: The pelvic ring is intact. No acute fracture or dislocation is identified. There is no radiopaque foreign body. IMPRESSION: No acute fracture or dislocation. I have personally reviewed the images of this examination and agree with the resident's findings and interpretation. Interpreted By: Fei Wisdom MDPreliminary Report By: Gordo Lyon MDElectronically Signed By: Fei Wisdom MD Dictated Date: 12/09/2016 8:00:26 PM Prelim Date: 12/09/2016 8:01:08 PM Sign Date: 12/09/2016 8:26:43 PM Normal Pending [facility] To [facility] [place] Vital Signs Date Time Vital Sign Value Performing Clinician Enedelia mccabe 07-05-2024 09:27-0500 Body mass index (BMI) [Ratio] 26.52 kg/m2 Anh Epps APRN.CNP Work Phone: [facility] 07-05-2024 09:27-0500 Body temperature 97.7 [degF] Anh Epps APRN.FUNDRAISING SALE REPRESENTATIVE Work Phone: [facility] 07-05-2024 09:27-0500 Body weight 80.29 kg Anh Epps APRN.CNP Work Phone: [facility] 07-05-2024 09:27-0500 Diastolic blood pressure 68 mm[Hg] Anh Epps APRN.CNP Work Phone: [facility] 07-05-2024 09:27-0500 Heart rate 68 /min Anh Epps APRN.CNP Work Phone: [facility] 07-05-2024 09:27-0500 SaO2% (BldA) [Mass fraction] 91 % Anh Suppan RESIDENTIAL SUBCONTRACTOR.FUNDRAISING SALE REPRESENTATIVE Work Phone: [facility] 07-05-2024 09:27-0500 Systolic blood pressure 118 mm[Hg] Anh Suppan RESIDENTIAL SUBCONTRACTOR.FUNDRAISING SALE REPRESENTATIVE Work Phone: [facility] 04-20-2024 11:11-0500 Body mass index (BMI) [Ratio] 26.49 kg/m2 Kayla Humphrey RESIDENTIAL SUBCONTRACTOR.FUNDRAISING SALE REPRESENTATIVE Work Phone: [facility] 04-20-2024 11:11-0500 Body temperature 99.1 [degF] Kayla Humphrey RESIDENTIAL SUBCONTRACTOR.FUNDRAISING SALE REPRESENTATIVE Work Phone: [facility] 04-20-2024 11:11-0500 Body weight 80.2 kg Kayla Humphrey RESIDENTIAL SUBCONTRACTOR.FUNDRAISING SALE REPRESENTATIVE Work Phone: [facility] 04-20-2024 11:11-0500 Diastolic blood pressure 76 mm[Hg] Kayla Humphrey RESIDENTIAL SUBCONTRACTOR.FUNDRAISING SALE REPRESENTATIVE Work Phone: [facility] 04-20-2024 11:11-0500 Heart rate 73 /min Kayla Humphrey RESIDENTIAL SUBCONTRACTOR.FUNDRAISING SALE REPRESENTATIVE Work Phone: [facility] 04-20-2024 11:11-0500 SaO2% (BldA) [Mass fraction] 96 % Kayla Humphrey RESIDENTIAL SUBCONTRACTOR.FUNDRAISING SALE REPRESENTATIVE Work Phone: [facility] 04-20-2024 11:11-0500 Systolic blood pressure 118 mm[Hg] Kayla SimentalJosh RESIDENTIAL SUBCONTRACTOR.FUNDRAISING SALE REPRESENTATIVE Work Phone: [facility] 04-13-2024 08:43-0500 Diastolic blood pressure 60 mm[Hg] Anh Suppan RESIDENTIAL SUBCONTRACTOR.FUNDRAISING SALE REPRESENTATIVE Work Phone: [facility] 04-13-2024 08:43-0500 Systolic blood pressure 116 mm[Hg] Anh Suppan RESIDENTIAL SUBCONTRACTOR.FUNDRAISING SALE REPRESENTATIVE Work Phone: [facility] 04-13-2024 08:08-0500 Body mass index (BMI) [Ratio] 27.25 kg/m2 Anh Suppan RESIDENTIAL SUBCONTRACTOR.FUNDRAISING SALE REPRESENTATIVE Work Phone: [facility] 04-13-2024 08:08-0500 Body weight 82.5 kg Anh Suppan RESIDENTIAL SUBCONTRACTOR.FUNDRAISING SALE REPRESENTATIVE Work Phone: [facility] 04-13-2024 08:08-0500 Heart rate 77 /min Anh Suppan RESIDENTIAL SUBCONTRACTOR.FUNDRAISING SALE REPRESENTATIVE Work Phone: [facility] 04-13-2024 08:08-0500 Respiratory rate 18 /min Anh Suppan RESIDENTIAL SUBCONTRACTOR.FUNDRAISING SALE REPRESENTATIVE Work Phone: [facility] 04-13-2024 08:08-0500 SaO2% (BldA) [Mass fraction] 93 % Anh Suppan RESIDENTIAL SUBCONTRACTOR.FUNDRAISING SALE REPRESENTATIVE Work Phone: [facility] 11-28-2023 07:56-0400 Body mass index (BMI) [Ratio] 26.82 kg/m2 Anh Suppan RESIDENTIAL SUBCONTRACTOR.FUNDRAISING SALE REPRESENTATIVE Work Phone: [facility] 11-28-2023 07:56-0400 Body weight 81.19 kg Anh Suppan RESIDENTIAL SUBCONTRACTOR.FUNDRAISING SALE REPRESENTATIVE Work Phone: [facility] 11-28-2023 07:56-0400 Diastolic blood pressure 84 mm[Hg] Anh Suppan RESIDENTIAL SUBCONTRACTOR.FUNDRAISING SALE REPRESENTATIVE Work Phone: [facility] 11-28-2023 07:56-0400 Heart rate 66 /min Anh Suppan RESIDENTIAL SUBCONTRACTOR.FUNDRAISING SALE REPRESENTATIVE Work Phone: [facility] 11-28-2023 07:56-0400 Respiratory rate 16 /min Anh Suppan RESIDENTIAL SUBCONTRACTOR.FUNDRAISING SALE REPRESENTATIVE Work Phone: [facility] 11-28-2023 07:56-0400 SaO2% (BldA) [Mass fraction] 96 % Anh Suppan RESIDENTIAL SUBCONTRACTOR.FUNDRAISING SALE REPRESENTATIVE Work Phone: [facility] 11-28-2023 07:56-0400 Systolic blood pressure 146 mm[Hg] Anh Suppan RESIDENTIAL SUBCONTRACTOR.FUNDRAISING SALE REPRESENTATIVE Work Phone: [facility] 11-18-2023 13:09-0400 Body mass index (BMI) [Ratio] 26.67 kg/m2 Anh Suppan RESIDENTIAL SUBCONTRACTOR.FUNDRAISING SALE REPRESENTATIVE Work Phone: [facility] 11-18-2023 13:09-0400 Body weight 80.74 kg Anh Suppan RESIDENTIAL SUBCONTRACTOR.FUNDRAISING SALE REPRESENTATIVE Work Phone: [facility] 11-18-2023 13:09-0400 Diastolic blood pressure 82 mm[Hg] Anh Suppan RESIDENTIAL SUBCONTRACTOR.FUNDRAISING SALE REPRESENTATIVE Work Phone: [facility] 11-18-2023 13:09-0400 Heart rate 83 /min Anh Suppan RESIDENTIAL SUBCONTRACTOR.FUNDRAISING SALE REPRESENTATIVE Work Phone: [facility] 11-18-2023 13:09-0400 Respiratory rate 16 /min Anh Suppan RESIDENTIAL SUBCONTRACTOR.FUNDRAISING SALE REPRESENTATIVE Work Phone: [facility] 11-18-2023 13:09-0400 SaO2% (BldA) [Mass fraction] 93 % Anh Suppan RESIDENTIAL SUBCONTRACTOR.FUNDRAISING SALE REPRESENTATIVE Work Phone: [facility] 11-18-2023 13:09-0400 Systolic blood pressure 148 mm[Hg] Anh Suppan RESIDENTIAL SUBCONTRACTOR.FUNDRAISING SALE REPRESENTATIVE Work Phone: [facility] 10-07-2023 08:25-0400 Diastolic blood pressure 84 mm[Hg] NA Ponce PA-C Work Phone: [facility] 10-07-2023 08:25-0400 Systolic blood pressure 148 mm[Hg] NA Ponce PA-C Work Phone: [facility] 10-07-2023 07:55-0400 Body mass index (BMI) [Ratio] 26.67 kg/m2 NA Ponce PA-C Work Phone: [facility] 10-07-2023 07:55-0400 Body weight 80.74 kg NA Ponce PA-C Work Phone: [facility] 10-07-2023 07:55-0400 Heart rate 72 /min NA Ponce PA-C Work Phone: [facility] 10-07-2023 07:55-0400 Respiratory rate 16 /min NA Ponce PA-C Work Phone: [facility] 10-07-2023 07:55-0400 SaO2% (BldA) [Mass fraction] 94 % NA Ponce PA-C Work Phone: [facility] 08-19-2023 07:11-0400 Body height 180.34 cm PA NA Ponce PA Work Phone: [facility] 08-19-2023 07:11-0400 Body weight 83 kg PA NA Ponce PA Work Phone: [facility] 08-18-2023 09:21-0400 Body mass index (BMI) [Ratio] 25.5 kg/m2 PA NA Ponce PA Work Phone: [facility] 08-07-2023 09:10-0400 Body height 180.34 cm PA NA Ponce PA Work Phone: [facility] 08-07-2023 09:10-0400 Body mass index (BMI) [Ratio] 25.5 kg/m2 PA NA Ponce PA Work Phone: [facility] 08-07-2023 09:10-0400 Body weight 83.14 kg PA NA Ponce PA Work Phone: [facility] 08-07-2023 09:10-0400 Diastolic blood pressure 90 mm[Hg] PA NA Ponce PA Work Phone: [facility] 08-07-2023 09:10-0400 Heart rate 80 /min PA NA Ponce PA Work Phone: [facility] 08-07-2023 09:10-0400 Respiratory rate 16 /min PA NA Ponce PA Work Phone: [facility] 08-07-2023 09:10-0400 Systolic blood pressure 135 mm[Hg] PA NA Ponce PA Work Phone: [facility] 04-07-2023 08:09-0500 Body height 174 cm NA Ponce PA-C Work Phone: [facility] 04-07-2023 08:09-0500 Body temperature 97.11 [degF] NA Ponce PA-C Work Phone: [facility] 04-07-2023 08:09-0500 Body weight 80.74 kg NA Ponce PA-C Work Phone: [facility] 04-07-2023 08:09-0500 Diastolic blood pressure 70 mm[Hg] NA Ponce PA-C Work Phone: [facility] 04-07-2023 08:09-0500 Heart rate 73 /min NA Ponce PA-C Work Phone: [facility] 04-07-2023 08:09-0500 Respiratory rate 20 /min NA Ponce PA-C Work Phone: [facility] 04-07-2023 08:09-0500 SaO2% (BldA) [Mass fraction] 92 % NA Ponce PA-C Work Phone: [facility] 04-07-2023 08:09-0500 Systolic blood pressure 128 mm[Hg] NA Ponce PA-C Work Phone: [facility] 10-29-2022 10:22-0400 Body height 180.34 cm PA NA Ponce PA Work Phone: [facility] 10-29-2022 10:22-0400 Body mass index (BMI) [Ratio] 24.3 kg/m2 PA NA Ponce PA Work Phone: [facility] 10-29-2022 10:22-0400 Body weight 78.92 kg PA NA Ponce PA Work Phone: [facility] 10-29-2022 10:22-0400 Diastolic blood pressure 81 mm[Hg] PA NA Ponce PA Work Phone: [facility] 10-29-2022 10:22-0400 Heart rate 79 /min PA NA Ponce PA Work Phone: [facility] 10-29-2022 10:22-0400 Respiratory rate 18 /min PA NA Ponce PA Work Phone: [facility] 10-29-2022 10:22-0400 SaO2% (BldA) [Mass fraction] 93 % PA NA Ponce PA Work Phone: [facility] 10-29-2022 10:22-0400 Systolic blood pressure 138 mm[Hg] PA NA Ponce PA Work Phone: [facility] 05-08-2022 11:31-0500 Body temperature 98.01 [degF] Denise Athy PA-C Work Phone: [facility] 05-08-2022 11:31-0500 Body weight 75.3 kg Denise Athy PA-C Work Phone: [facility] 05-08-2022 11:31-0500 Diastolic blood pressure 70 mm[Hg] Denise Athy PA-C Work Phone: [facility] 05-08-2022 11:31-0500 Heart rate 88 /min Denise Athy PA-C Work Phone: [facility] 05-08-2022 11:31-0500 Respiratory rate 16 /min Denise Athy PA-C Work Phone: [facility] 05-08-2022 11:31-0500 SaO2% (BldA) [Mass fraction] 95 % Denise Athy PA-C Work Phone: [facility] 05-08-2022 11:31-0500 Systolic blood pressure 124 mm[Hg] Denise Athy PA-C Work Phone: [facility] 04-01-2022 08:00-0500 Body weight 77.11 kg NA Ponce PA-C Work Phone: [facility] 04-01-2022 08:00-0500 Diastolic blood pressure 76 mm[Hg] NA Ponce PA-C Work Phone: [facility] 04-01-2022 08:00-0500 Heart rate 82 /min NA Ponce PA-C Work Phone: [facility] 04-01-2022 08:00-0500 Respiratory rate 18 /min NA Ponce PA-C Work Phone: [facility] 04-01-2022 08:00-0500 SaO2% (BldA) [Mass fraction] 97 % NA Ponce PA-C Work Phone: [facility] 04-01-2022 08:00-0500 Systolic blood pressure 128 mm[Hg] NA Ponce PA-C Work Phone: [facility] 02-18-2022 14:03-0400 Body weight 78.2 kg NA Ponce PA-C Work Phone: [facility] 02-18-2022 14:03-0400 Diastolic blood pressure 64 mm[Hg] NA Ponce PA-C Work Phone: [facility] 02-18-2022 14:03-0400 Heart rate 72 /min NA Ponce PA-C Work Phone: [facility] 02-18-2022 14:03-0400 Respiratory rate 16 /min NA Ponce PA-C Work Phone: [facility] 02-18-2022 14:03-0400 Systolic blood pressure 120 mm[Hg] NA Ponce PA-C Work Phone: [facility] 02-13-2022 09:22-0400 Body temperature 98.2 [degF] PA NA Ponce PA Work Phone: [facility] Work Phone: 02-13-2022 09:22-0400 Diastolic blood pressure 77 mm[Hg] PA NA Ponce PA Work Phone: [facility] Work Phone: 02-13-2022 09:22-0400 Heart rate 79 /min PA NA Ponce PA Work Phone: [facility] Work Phone: 02-13-2022 09:22-0400 Respiratory rate 18 /min PA NA Ponce PA Work Phone: [facility] Work Phone: 02-13-2022 09:22-0400 SaO2% (BldA) [Mass fraction] 97 % PA NA Ponce PA Work Phone: [facility] Work Phone: 02-13-2022 09:22-0400 Systolic blood pressure 146 mm[Hg] PA NA Ponce PA Work Phone: [facility] Work Phone: 02-12-2022 10:25-0400 Body height 180.34 cm PA NA Ponce PA Work Phone: [facility] Work Phone: 02-12-2022 10:25-0400 Body mass index (BMI) [Ratio] 23.1 kg/m2 PA NA Ponce PA Work Phone: [facility] Work Phone: 02-12-2022 10:25-0400 Body weight 75.4 kg PA NA Ponce PA Work Phone: [facility] Work Phone: 02-11-2022 17:19-0400 Body temperature 97.2 [degF] PA NA Ponce PA Work Phone: [facility] Work Phone: 02-11-2022 17:19-0400 Diastolic blood pressure 65 mm[Hg] PA NA Ponce PA Work Phone: [facility] Work Phone: 02-11-2022 17:19-0400 Heart rate 74 /min PA NA Ponce PA Work Phone: [facility] Work Phone: 02-11-2022 17:19-0400 Respiratory rate 16 /min PA NA Ponce PA Work Phone: [facility] Work Phone: 02-11-2022 17:19-0400 SaO2% (BldA) [Mass fraction] 98 % PA NA Ponce PA Work Phone: [facility] Work Phone: 02-11-2022 17:19-0400 Systolic blood pressure 133 mm[Hg] PA NA Ponce PA Work Phone: [facility] Work Phone: 02-11-2022 14:46-0400 Body height 177.8 cm PA NA Ponce PA Work Phone: [facility] Work Phone: 02-11-2022 14:46-0400 Body mass index (BMI) [Ratio] 24.7 kg/m2 PA NA Ponce PA Work Phone: [facility] Work Phone: 02-11-2022 14:46-0400 Body weight 78.01 kg PA NA Ponce PA Work Phone: [facility] Work Phone: 01-31-2022 07:39-0400 Body mass index (BMI) [Ratio] 24.7 kg/m2 PA NA Ponce PA Work Phone: [facility] Work Phone: 01-31-2022 07:39-0400 Body temperature 97.6 [degF] PA NA Ponce PA Work Phone: [facility] Work Phone: 01-31-2022 07:39-0400 Body weight 78.07 kg PA NA Ponce PA Work Phone: [facility] Work Phone: 01-31-2022 07:39-0400 Diastolic blood pressure 90 mm[Hg] PA NA Ponce PA Work Phone: [facility] Work Phone: 01-31-2022 07:39-0400 Heart rate 90 /min PA NA Ponce PA Work Phone: [facility] Work Phone: 01-31-2022 07:39-0400 Respiratory rate 16 /min PA NA Ponce PA Work Phone: [facility] Work Phone: 01-31-2022 07:39-0400 SaO2% (BldA) [Mass fraction] 96 % PA NA Ponce PA Work Phone: [facility] Work Phone: 01-31-2022 07:39-0400 Systolic blood pressure 153 mm[Hg] PA NA Ponce PA Work Phone: [facility] Work Phone: 01-27-2022 12:32-0400 Diastolic blood pressure 99 mm[Hg] PA NA Ponce PA Work Phone: [facility] Work Phone: 01-27-2022 12:32-0400 Heart rate 71 /min PA NA Ponce PA Work Phone: [facility] Work Phone: 01-27-2022 12:32-0400 Respiratory rate 16 /min PA NA Ponce PA Work Phone: [facility] Work Phone: 01-27-2022 12:32-0400 SaO2% (BldA) [Mass fraction] 94 % PA NA Ponce PA Work Phone: [facility] Work Phone: 01-27-2022 12:32-0400 Systolic blood pressure 179 mm[Hg] PA NA Ponce PA Work Phone: [facility] Work Phone: 01-27-2022 10:14-0400 Body height 177.8 cm PA NA Ponce PA Work Phone: [facility] Work Phone: 01-27-2022 10:14-0400 Body mass index (BMI) [Ratio] 24.7 kg/m2 PA NA Ponce PA Work Phone: [facility] Work Phone: 01-27-2022 10:14-0400 Body weight 78.2 kg PA NA Ponce PA Work Phone: [facility] Work Phone: 01-27-2022 09:42-0400 Body temperature 98 [degF] PA NA Ponce PA Work Phone: [facility] Work Phone: 01-02-2022 07:45-0400 Body height 177.8 cm PA NA Ponce PA Work Phone: [facility] Work Phone: 01-02-2022 07:45-0400 Body mass index (BMI) [Ratio] 24.8 kg/m2 PA NA Ponce PA Work Phone: [facility] Work Phone: 01-02-2022 07:45-0400 Body temperature 97.3 [degF] PA NA Ponce PA Work Phone: [facility] Work Phone: 01-02-2022 07:45-0400 Body weight 78.58 kg PA NA Ponce PA Work Phone: [facility] Work Phone: 01-02-2022 07:45-0400 Diastolic blood pressure 101 mm[Hg] PA NA Ponce PA Work Phone: [facility] Work Phone: 01-02-2022 07:45-0400 Heart rate 74 /min PA NA Ponce PA Work Phone: [facility] Work Phone: 01-02-2022 07:45-0400 Respiratory rate 16 /min PA NA Ponce PA Work Phone: [facility] Work Phone: 01-02-2022 07:45-0400 SaO2% (BldA) [Mass fraction] 94 % PA NA Ponce PA Work Phone: [facility] Work Phone: 01-02-2022 07:45-0400 Systolic blood pressure 174 mm[Hg] PA NA Ponce PA Work Phone: [facility] Work Phone: 10-19-2021 16:11-0400 Diastolic blood pressure 76 mm[Hg] NA Ponce PA-C Work Phone: [facility] 10-19-2021 16:11-0400 Heart rate 72 /min NA Ponce PA-C Work Phone: [facility] 10-19-2021 16:11-0400 Systolic blood pressure 137 mm[Hg] NA Ponce PA-C Work Phone: [facility] 10-19-2021 14:42-0400 Body weight 79.02 kg NA Ponce PA-C Work Phone: [facility] 10-19-2021 14:42-0400 Respiratory rate 16 /min NA Ponce PA-C Work Phone: [facility] Encounters Encounter Date Encounter Type Care Provider Facility Start: 10-13-2024 End: 10-13-2024 ambulatory Zaynab TRAN Facility:[facility] Start: 10-12-2024 End: 10-12-2024 ambulatory ANH A SUPPAN Facility:[facility] Start: 09-28-2024 End: 09-28-2024 ambulatory Anh A Suppan RESIDENTIAL SUBCONTRACTOR.FUNDRAISING SALE REPRESENTATIVE Work Phone: Internal [facility] [place] [id number] Start: 09-20-2024 End: 09-20-2024 ambulatory Bette Gann CAMERA CONTROL OPERATOR Facility:[facility] Start: 07-08-2024 End: 07-20-2024 Telephone encounter Anh A Suppan RESIDENTIAL SUBCONTRACTOR.FUNDRAISING SALE REPRESENTATIVE Work Phone: [facility] [place] Comment on above: Forms Start: 07-05-2024 End: 07-05-2024 ambulatory ANH A SUPPAN Facility:[facility] Start: 07-05-2024 End: 07-05-2024 Office outpatient visit 15 minutes Anh A Suppan RESIDENTIAL SUBCONTRACTOR.FUNDRAISING SALE REPRESENTATIVE Work Phone: [facility] Comment on above: Influenza A (Primary Dx); Asthma with COPD with exacerbation (HCC) Start: 06-28-2024 ambulatory Barrie Hameed Facili ty:[facility] Start: 06-28-2024 End: 06-30-2024 Evaluation and management of inpatient Barrie Hameed Facility:[facility] Start: 04-20-2024 End: 04-20-2024 ambulatory KAYLA HUMPHREY Facility:[facility] Start: 04-20-2024 End: 04-20-2024 Patient encounter procedure Kayla Humphrey RESIDENTIAL SUBCONTRACTOR.FUNDRAISING SALE REPRESENTATIVE Work Phone: [facility] [place] Comment on above: Respiratory infectio n (Primary Dx) Start: 04-15-2024 End: 04-15-2024 ambulatory Bette Gann CAMERA CONTROL OPERATOR Facility:[facility] Start: 04-13-2024 End: 04-13-2024 Office outpatient visit 25 minutes Anh A Suppan RESIDENTIAL SUBCONTRACTOR.FUNDRAISING SALE REPRESENTATIVE Work Phone: [facility] Comment on above: Essential hypertensi on (Primary Dx); Screening for depression; Encounter for screening examination for other mental health and behavioral disorders; Special screening examination for viral disease; Screening for lipid disorders; Excessive thirst; Pure hypercholesterolemia; Pulmonary emphysema, unspecified emphysema type (HCC); S/P right coronary artery (RCA) stent placement; Chronic obstructive pulmonary disease, unspecified COPD type (HCC) Start: 04-13-2024 End: 04-13-2024 ambulatory ANH A SUPPAN Facility:[facility] Start: 03-22-2024 End: 03-22-2024 ambulatory Bette Gann CAMERA CONTROL OPERATOR Facility:[facility] Start: 02-05-2024 End: 02-05-2024 ambulatory Magda Lei CAMERA CONTROL OPERATOR Facility:[facility] Start: 11-28-2023 End: 11-28-2023 Office outpatient visit 15 minutes Anh A Suppan RESIDENTIAL SUBCONTRACTOR.FUNDRAISING SALE REPRESENTATIVE Work Phone: [facility] Comment on above: Recurrent acute sero us otitis media of right ear (Primary Dx); COPD with exacerbation (HCC) Start: 11-28-2023 End: 11-28-2023 ambulatory ANH A SUPPAN Facility:[facility] Start: 11-18-2023 End: 11-18-2023 ambulatory ANH A SUPPAN Facility:[facility] Start: 11-18-2023 End: 11-18-2023 Office outpatient visit 15 minutes Anh A Jamiean RESIDENTIAL SUBCONTRACTOR.FUNDRAISING SALE REPRESENTATIVE Work Phone: [facility] Comment on above: Swollen lymph nodes (Primary Dx); Acute recurrent maxillary sinusitis Start: 11-17-2023 End: 11-17-2023 ambulatory Bette Gann NP Facility:[facility] Start: 10-07-2023 End: 10-07-2023 Patient encounter procedure Silverio Ponce PA-C Work Phone: [facility] Comment on above: S/P right coronary a rtery (RCA) stent placement (Primary Dx); Essential hypertension; Mixed hyperlipidemia; Bronchiectasis without complication (HCC); Chronic obstructive pulmonary disease, unspecified COPD type (HCC); Other emphysema (HCC); Screening for lung cancer; Decker's palsy; Trochanteric bursitis of left hip Start: 08-19-2023 End: 08-19-2023 Admission to same day surgery center MARC TRAN Work Phone: [facility]-Web Specialist/Special Procedures Work Phone: Start: 08-19-2023 End: 08-19-2023 ambulatory MARC TRAN Work Phone: [facility] Work Phone: Start: 08-07-2023 End: 08-07-2023 ambulatory PA Silverio TRAN Work Phone: [facility] Work Phone: Start: 08-07-2023 End: 08-07-2023 Patient encounter procedure MARC TRAN Work Phone: [facility] Work Phone: Start: 04-11-2023 Telephone encounter M Madeline Ponce PA-C Work Phone: [facility] [place] Comment on above: Results Start: 04-10-2023 End: 04-10-2023 Subsequent hospital visit by physician [facility] Work Phone: Radiology Comment on above: Screening for abdomi nal aortic aneurysm [Z13.6] Start: 04-08-2023 Telephone encounter Silverio Madeline Ponce PA-C Work Phone: [facility] [place] Comment on above: Patient Question Start: 04-07-2023 End: 04-07-2023 Patient encounter procedure Silverio Madeline Ponce PA-C Work Phone: Family [facility] [place] Comment on above: Bronchiectasis witho ut complication (HCC) (Primary Dx); Chronic obstructive pulmonary disease, unspecified COPD type (HCC); Essential hypertension; Mixed hyperlipidemia; S/P right coronary artery (RCA) stent placement; Screening for abdominal aortic aneurysm; Encounter for immunization; Special screening examination for viral disease; Encounter for Medicare annual wellness exam Start: 11-11-2022 Non-patient / Non-visit PA MARRY TRAN Work Phone: [facility] Start: 11-11-2022 End: 11-11-2022 ambulatory PA Silverio TRAN Work Phone: [facility] Work Phone: Start: 11-11-2022 End: 11-11-2022 Patient encounter procedure MARC TRAN Work Phone: [facility]-Cardiovascul ar Services Work Phone: Start: 10-29-2022 End: 10-29-2022 Patient encounter procedure MARC TRAN Work Phone: [facility] Work Phone: Start: 07-25-2022 Refill Denise Hubbard Work Phone: [facility] Comment on above: Refill Request Start: 05-24-2022 End: 05-25-2022 ambulatory Nick Celso [facility] Comment on above: Trochanteric bursiti s of left hip (Primary Dx); Left hip pain Start: 05-08-2022 End: 05-08-2022 Patient encounter procedure Denise Kahn [facility]-C [facility] Comment on above: Sinobronchitis (Prim little Dx) Start: 04-30-2022 End: 04-30-2022 ambulatory Nick Houston [facility] Comment on above: Trochanteric bursiti s of left hip (Primary Dx); Left hip pain Start: 04-23-2022 End: 04-23-2022 ambulatory Nick Houston [facility] Comment on above: Trochanteric bursiti s of left hip (Primary Dx); Left hip pain Start: 04-09-2022 End: 04-09-2022 ambulatory Nick Houston [facility] Comment on above: Left hip pain (Prima ry Dx); Trochanteric bursitis of left hip Start: 04-05-2022 Telephone encounter Silverio Ponce PA-C Work Phone: [facility] Comment on above: Results Start: 04-03-2022 End: 04-03-2022 Subsequent hospital visit by physician [facility] [place] Work Phone: Radiology Comment on above: Left hip pain [M25.5 52] Start: 04-01-2022 End: 04-01-2022 Patient encounter procedure Silverio Ponce PA-C Work Phone: [facility] [place] Comment on above: Left hip pain (Prima ry Dx); Trochanteric bursitis of left hip; Decker's palsy; Blood loss anemia; Hx of Silvia-Hare syndrome Start: 03-06-2022 Telephone encounter Silverio Ponce PA-C Work Phone: [facility] [place] Comment on above: Patient Update Start: 03-04-2022 Telephone encounter Silverio Ponce PA-C Work Phone: [facility] [place] Comment on above: Results Start: 02-20-2022 Telephone encounter Silverio Ponce PA-C Work Phone: [facility] Comment on above: Forms Start: 02-18-2022 End: 02-18-2022 Patient encounter procedure Silverio Madeline Ponce PA-C Work Phone: [facility] Comment on above: Hospital discharge f ollow-up (Primary Dx); Gastrointestinal hemorrhage with hematemesis; Silvia-Hare tear; Acute gastric ulcer due to Helicobacter pylori; Hiatal hernia; Blood loss anemia; Decker's palsy; S/P right coronary artery (RCA) stent placement; Essential hypertension; Bronchiectasis without complication (HCC); Chronic obstructive pulmonary disease, unspecified COPD type (HCC); Mixed hyperlipidemia Start: 02-13-2022 Non-patient / Non-visit PA MARRY Ponce PA Work Phone: [facility] Start: 02-12-2022 Non-patient / Non-visit PA MARRY [place] PA Work Phone: [facility] Start: 02-12-2022 Non-patient / Non-visit PA MARRY Ponce PA Work Phone: [facility] Start: 02-11-2022 Non-patient / Non-visit PA MARRY Ponce PA Work Phone: [facility] Start: 02-11-2022 End: 02-13-2022 Evaluation and management of inpatient PA NA [facility] Start: 02-11-2022 Telephone encounter Silverio Madeline Ponce PA-C Work Phone: [facility] Comment on above: Patient Update; Appo intment Start: 02-07-2022 Telephone encounter Silverio Madeline Ponce PA-C Work Phone: [facility] Comment on above: Forms (FMLA) Start: 01-31-2022 End: 01-31-2022 Patient encounter procedure PA MARRY [facility]once [facility] Start: 01-27-2022 End: 01-27-2022 Emergency department patient visit PA MARRY TRAN Work Phone: [facility]-Emergency Department Start: 01-11-2022 ambulatory Tiffanie Pappas MA [facility] [place] Comment on above: Population Health Na vigation Outreach ([employer] Gaps ) Start: 01-04-2022 End: 01-04-2022 ambulatory PA Silverio TRAN Work Phone: [facility] Work Phone: Start: 01-04-2022 End: 01-04-2022 Patient encounter procedure MARC TRAN Work Phone: [facility] Start: 01-02-2022 End: 01-02-2022 Patient encounter procedure MARC TRAN Work Phone: [facility]-Pulmonary Medicine [facility] Start: 10-26-2021 Telephone encounter Silverio Ponce PA-C Work Phone: [facility] Comment on above: Results Start: 10-19-2021 End: 10-19-2021 Subsequent hospital visit by physician [facility] Work Phone: Radiology Comment on above: Right-sided chest pa in [R07.9] Start: 10-19-2021 End: 10-19-2021 Patient encounter procedure Silverio Madeline TRAN-C Work Phone: [facility] Comment on above: S/P right coronary a rtery (RCA) stent placement (Primary Dx); Essential hypertension; Mixed hyperlipidemia; Right-sided chest pain; Chronic obstructive pulmonary disease, unspecified COPD type (HCC); Bronchiectasis without complication (HCC) Start: 2018 End: 2018 Patient encounter procedure [facility] Start: 2018 Patient encounter procedure [facility] Start: 09-02-2017 End: 09-03-2017 Ambulatory [facility] Start: 12-09-2016 End: 12-14-2016 Evaluation and management of inpatient PHY WO ID~[id number] REFERRING Facility:A Procedures Date Procedure Procedure Detail Performing Clinician Start: 04-13-2024 Adult depression screening assessment Anh Epps APRN.CNP Work Phone: Start: 08-07-2023 Plain chest X-ray PA MARRY [place] PA Work Phone: Start: 04-10-2023 Us abdominal aorta real time screen study aaa M Madeline Ponce PA-C Work Phone: Start: 11-11-2022 Radionuclide imaging of perfusion of myocardium under exercise stress PA MARRY Ponce PA Work Phone: Start: 04-03-2022 Radex hip unilateral with pelvis 2-3 views M Madeline Ponce PA-C Work Phone: Start: 02-12-2022 Esophagogastroduodenoscopy PA MARRY Ponce PA Work Phone: Start: 01-27-2022 MRI of brain without contrast PA MARRY Felix on PA Work Phone: Start: 01-27-2022 Plain chest X-ray PA NA Ponce PA Work Phone: Start: 01-27-2022 CT angiography of head and neck PA MARRY Pisano rton PA Work Phone: Start: 01-27-2022 CT of head without contrast PA NA Ponce PA Work Phone: Start: 01-04-2022 CT of chest PA NA Ponce PA Work Phone: Start: 10-19-2021 Radiologic exam chest 2 views Silverio Madeline Ponce PA-C Work Phone: Start: 10-19-2021 Adult depression screening assessment NA Ponce PA-C Work Phone: Start: 04-23-2019 History of placement of stent for coronary artery disease S/P right coronary artery (RCA) stent placement NA Ponce PA-C Work Phone: Start: 07-10-2018 History of placement of stent for coronary artery disease History of coronary artery stent placement PA NA Ponce PA Work Phone: Start: 07-07-2018 Lipid 1996 panel - Serum or Plasma MARRY brown PA-C Work Phone: Start: 07-02-2016 End: 08-25-2017 History of cataract extraction S/P cataract extraction and insertion of intraocular lens MARRY Ponce PA-C Work Phone: Start: 05-12-2014 Colonoscopy MARRY Ponce PA-C Work Phone: History of placement of stent for coronary artery disease S/P right coronary artery (RCA) stent placement Silverio Ponce PA-C Work Phone: History of placement of stent for coronary artery disease S/P right coronary artery (RCA) stent placement Silverio Ponce PA-C Work Phone: History of placement of stent for coronary artery disease S/P right coronary artery (RCA) stent placement Silverio Ponce PA-C Work Phone: History of placement of stent for coronary artery disease S/P right coronary artery (RCA) stent placement Silverio Ponce PA-C Work Phone: History of placement of stent for coronary artery disease S/P right coronary artery (RCA) stent placement Anh Epps APRN.FUNDRAISING SALE REPRESENTATIVE Work Phone: Plan of Treatment Date Care Activity Detail Author Start: 07-05-2025 Annual PCP Team Chronic Disease Visit Annual PCP Team Chronic Disease Visit [facility] Start: 07-05-2025 BP Controlled (<130/80) BP Controlled (<130/80) [facility] Start: 04-20-2025 Annual PCP Team Chronic Disease Visit Annual PCP Team Chronic Disease Visit [facility] Start: 04-20-2025 BP Controlled (<130/80) BP Controlled (<130/80) [facility] Start: 04-13-2025 Anxiety Screening Anxiety Screening [facility] Start: 04-13-2025 BP Controlled (<130/80) BP Controlled (<130/80) [facility] Start: 04-13-2025 Covid-19 Vaccine () Covid-19 Vaccine () [facility] Comment on above: Postponed from 01/11/2024 (Declined at t his time) Start: 04-13-2025 Depression Screening Depression Screening [facility] Start: 04-13-2025 Pneumococcal Vaccine: 50+ (1 of 2 - PCV) Pneumococcal Vaccine: 50+ (1 of 2 - PCV) [facility] Comment on above: Postponed from 1969 (Declined at t his time) Start: 04-13-2025 Pneumococcal Vaccine: 65+ (1 of 2 - PCV) Pneumococcal Vaccine: 65+ (1 of 2 - PCV) [facility] Comment on above: Postponed from 1956 (Declined at t his time) Start: 04-13-2025 RSV Vaccine (1 - Risk 60-74 years 1-dose series) RSV Vaccine (1 - Risk 60-74 years 1-dose series) [facility] Comment on above: Postponed from 2010 (Declined at t his time) Start: 03-01-2025 DIABETES SCREEN DIABETES SCREEN [facility] Start: 03-01-2025 Diabetes Screening Diabetes Screening [facility] Start: 01-10-2025 Influenza vaccination Influenza Vaccine (Season Ended) [facility] Start: 11-08-2024 Influenza vaccination Influenza Vaccine (#1) [facility] Comment on above: Postponed from 01/11/2024 (Declined at t his time) Start: 10-26-2024 DIABETES SCREEN DIABETES SCREEN [facility] Start: 10-12-2024 End: 10-12-2024 Patient encounter procedure 10/12/2024 8:00 AM EDT Office Visit [facility] [address] [place] [address] Anh pEps, RESIDENTIAL SUBCONTRACTOR.FUNDRAISING SALE REPRESENTATIVE [address] [place] [address] 6 month exam [facility] Comment on above: 6 month exam Start: 10-06-2024 Annual PCP Team Chronic Disease Visit Annual PCP Team Chronic Disease Visit [facility] Start: 05-12-2024 Advance Directive Discussion Advance Directive Discussion [facility] Start: 05-12-2024 Colonoscopy COLONOSCOPY [facility] Start: 05-12-2024 COLORECTAL CANCER SCREENING COLORECTAL CANCER SCREENING [facility] Start: 05-12-2024 Screening for malignant neoplasm of colon [facility] Start: 04-13-2024 End: 07-13-2024 Alpha 1 antitrypsin [Mass/volume] in Serum or Plasma [id number] Lab Routine Chronic obstructive pulmonary disease, unspecified COPD type (HCC) Expected: 04/13/2024, Expires: 07/13/2024 [facility] Comment on above: Expected: 04/13/2024, Expires: Start: 04-13-2024 End: 07-13-2024 CBC W Auto Differential panel - Blood COMPLETE BLOOD COUNT AND DIFFERENTIAL Lab Routine S/P right coronary artery (RCA) stent placement Expected: 04/13/2024, Expires: 07/13/2024 [facility] Comment on above: Expected: 04/13/2024, Expires: Start: 04-13-2024 End: 07-13-2024 Cobalamin (Vitamin B12) [Mass/volume] in Serum or Plasma VITAMIN B12 Lab Routine S/P right coronary artery (RCA) stent placement Expected: 04/13/2024, Expires: 07/13/2024 [facility] Comment on above: Expected: 04/13/2024, Expires: Start: 04-13-2024 End: 07-13-2024 Comprehensive metabolic 2000 panel - Serum or Plasma COMPREHENSIVE METABOLIC PANEL Lab Routine Essential hypertension Expected: 04/13/2024, Expires: 07/13/2024 [facility] Comment on above: Expected: 04/13/2024, Expires: Start: 04-13-2024 End: 07-13-2024 Hemoglobin A1c in Blood HEMOGLOBIN A1C Lab Routine Excessive thirst Expected: 04/13/2024, Expires: 07/13/2024 [facility] Comment on above: Expected: 04/13/2024, Expires: Start: 04-13-2024 End: 07-13-2024 Hepatitis C virus Ab [Presence] in Serum HEPATITIS C ANTIBODY IA WITH CONFIRMATION Lab Routine Special screening examination for viral disease Expected: 04/13/2024, Expires: 07/13/2024 [facility] Work Phone: Comment on above: Expected: 04/13/2024, Expires: Start: 04-13-2024 End: 07-13-2024 Lipid 1996 panel - Serum or Plasma LIPID PANEL BASIC Lab Routine Screening for lipid disorders Expected: 04/13/2024, Expires: 07/13/2024 [facility] Comment on above: Expected: 04/13/2024, Expires: Start: 04-13-2024 End: 07-13-2024 Magnesium [Mass/volume] in Serum or Plasma MAGNESIUM Lab Routine Essential hypertension Expected: 04/13/2024, Expires: 07/13/2024 [facility] Comment on above: Expected: 04/13/2024, Expires: Start: 04-13-2024 End: 07-13-2024 Thyrotropin [Units/volume] in Serum or Plasma THYROID STIMULATING HORMONE Lab Routine S/P right coronary artery (RCA) stent placement Expected: 04/13/2024, Expires: 07/13/2024 [facility] Comment on above: Expected: 04/13/2024, Expires: Start: 04-13-2024 End: 04-13-2024 Patient encounter procedure 04/13/2024 8:00 AM EST Office Visit [facility] [address] [place], [place] [id number] Silverio Ponce PA-C [address] [place] [address] 6 month follow up [facility] Comment on above: 6 month follow up Start: 04-07-2024 Annual PCP Team Chronic Disease Visit Annual PCP Team Chronic Disease Visit [facility] Start: 04-07-2024 BP Controlled (<130/80) BP Controlled (<130/80) [facility] in Start: 04-07-2024 Covid-19 Vaccine (#1) Covid-19 Vaccine (#1) [facility] Comment on above: Postponed from 1950 (Declined at t his time) Start: 04-07-2024 Covid-19 Vaccine () Covid-19 Vaccine () [facility] Comment on above: Postponed from 01/10/2023 (Declined at t his time) Start: 04-07-2024 Pneumococcal Vaccine: 65+ (1 - PCV) Pneumococcal Vaccine: 65+ (1 - PCV) [facility] Comment on above: Postponed from 1956 (Declined at t his time) Start: 04-07-2024 Pneumococcal Vaccine: 65+ (1 of 2 - PCV) Pneumococcal Vaccine: 65+ (1 of 2 - PCV) [facility] Comment on above: Postponed from 1956 (Declined at t his time) Start: 04-07-2024 RSV Vaccine (1 - 1-dose 60+ series) RSV Vaccine (1 - 1-dose 60+ series) [facility] Comment on above: Postponed from 2010 (Insurance Cov erage) Start: 04-07-2024 RSV Vaccine (1 - Risk 60-74 years 1-dose series) RSV Vaccine (1 - Risk 60-74 years 1-dose series) [facility] Comment on above: Postponed from 2010 (Insurance Cov erage) Start: 04-07-2024 Shingrix Vaccine (1 of 2) Shingrix Vaccine (1 of 2) [facility] Comment on above: Postponed from 2000 (Insurance Cov erage) Start: 01-11-2024 Covid-19 Vaccine ( season) Covid-19 Vaccine ( season) [facility] Start: 01-11-2024 Influenza vaccination [facility] Start: 11-28-2023 End: 11-28-2023 Patient encounter procedure 11/28/2023 8:00 AM EDT Office Visit [facility] [place] [address] [place], [place] [address] Anh Epps APRN.FUNDRAISING SALE REPRESENTATIVE [address] [place], [place] [id number] Sinus/gland f/u [facility] [place] Comment on above: Sinus/gland f/u Start: 11-09-2023 Influenza vaccination Influenza Vaccine (#1) [facility] Comment on above: Postponed from 01/10/2023 (Declined at t his time) Start: 08-19-2023 Patient discharge [facility] Start: 07-07-2023 Lipid 1996 panel - Serum or Plasma Lipid Screening [facility] Start: 07-07-2023 Lipid panel Lipid Screening [facility] Start: 07-07-2023 LIPID SCREEN LIPID SCREEN [facility] Start: 05-12-2023 Advance Directive Discussion Advance Directive Discussion [facility] Start: 05-12-2023 Behavioral Health Screening Behavioral Health Screening [facility] Start: 05-08-2023 BP CONTROLLED (<130/80) [facility] Start: 04-07-2023 End: 07-07-2023 Hepatitis C virus Ab [Presence] in Serum HEPATITIS C ANTIBODY IA WITH CONFIRMATION Lab Routine Special screening examination for viral disease Expected: 04/07/2023, Expires: 07/07/2023 [facility] Work Phone: Comment on above: Expected: 04/07/2023, Expires: Start: 04-05-2023 End: 07-05-2023 CBC W Auto Differential panel - Blood CBC + DIFF Lab Routine Bronchiectasis without complication (HCC) Chronic obstructive pulmonary disease, unspecified COPD type (HCC) Essential hypertension S/P right coronary artery (RCA) stent placement Expected: 04/05/2023, Expires: 07/05/2023 [facility] Work Phone: Comment on above: Expected: 04/05/2023, Expires: 4 Start: 04-05-2023 End: 07-05-2023 Comprehensive metabolic 2000 panel - Serum or Plasma COMP METABOLIC PANEL Lab Routine Essential hypertension Mixed hyperlipidemia S/P right coronary artery (RCA) stent placement Expected: 04/05/2023, Expires: 07/05/2023 [facility] Work Phone: Comment on above: Expected: 04/05/2023, Expires: Start: 04-05-2023 End: 07-05-2023 Lipid 1996 panel - Serum or Plasma LIPID PANEL BASIC Lab Routine Mixed hyperlipidemia S/P right coronary artery (RCA) stent placement Expected: 04/05/2023, Expires: 07/05/2023 [facility] Work Phone: Comment on above: Expected: 04/05/2023, Expires: 4 Start: 04-01-2023 ANNUAL PCP TEAM CHRONIC DISEASE VISIT ANNUAL PCP TEAM CHRONIC DISEASE VISIT [facility] Start: 04-01-2023 BP CONTROLLED (<130/80) BP CONTROLLED (<130/80) [facility] Start: 02-18-2023 ANNUAL PCP TEAM CHRONIC DISEASE VISIT ANNUAL PCP TEAM CHRONIC DISEASE VISIT [facility] Start: 02-18-2023 BP CONTROLLED (<130/80) BP CONTROLLED (<130/80) [facility] Start: 02-04-2023 ANNUAL PCP TEAM CHRONIC DISEASE VISIT ANNUAL PCP TEAM CHRONIC DISEASE VISIT [facility] Start: 02-04-2023 COVID-19 VACCINE (#1) COVID-19 VACCINE (#1) [facility] Comment on above: Postponed from 1950 (Declined at t his time) Start: 02-04-2023 PNEUMOCOCCAL: 65+ (1 - PCV) PNEUMOCOCCAL: 65+ (1 - PCV) [facility] Comment on above: Postponed from 1956 (Declined at t his time) Start: 02-04-2023 SHINGRIX VACCINE (1 of 2) SHINGRIX VACCINE (1 of 2) [facility] Comment on above: Postponed from 2000 (Declined at t his time) Start: 11-08-2022 Influenza vaccination INFLUENZA (#1) [facility] Comment on above: Postponed from 01/10/2022 (Declined at t his time) Start: 10-26-2022 ANNUAL PCP TEAM CHRONIC DISEASE VISIT ANNUAL PCP TEAM CHRONIC DISEASE VISIT [facility] Start: 10-26-2022 BP CONTROLLED (<130/80) BP CONTROLLED (<130/80) [facility] Start: 10-19-2022 Adult depression screening assessment DEPRESSION SCREENING [facility] Start: 10-19-2022 ANNUAL PCP TEAM CHRONIC DISEASE VISIT ANNUAL PCP TEAM CHRONIC DISEASE VISIT [facility] Start: 10-19-2022 Urine microalbumin profile DTAP,TDAP,TD (1 - Tdap) [facility] Comment on above: Postponed from 1969 (Declined at t his time) Start: 05-12-2022 ADVANCE DIRECTIVE DISCUSSION ADVANCE DIRECTIVE DISCUSSION [facility] Start: 05-12-2022 DEPRESSION ASSESSMENT DEPRESSION ASSESSMENT [facility] Start: 02-20-2022 Blood chemistry [facility] Work Phone: Start: 02-19-2022 Blood chemistry [facility] Work Phone: Start: 02-18-2022 End: 04-20-2022 Basic metabolic 2000 panel - Serum or Plasma BASIC METABOLIC PNL Lab Routine Gastrointestinal hemorrhage with hematemesis Blood loss anemia Essential hypertension Expected: 02/18/2022, Expires: 04/20/2022 [facility] Work Phone: Comment on above: Expected: 02/18/2022, Expires: 2 Start: 02-18-2022 End: 04-20-2022 CBC panel - Blood by Automated count CBC Lab Routine Gastrointestinal hemorrhage with hematemesis Blood loss anemia Expected: 02/18/2022, Expires: 04/20/2022 [facility] Work Phone: Comment on above: Expected: 02/18/2022, Expires: 2 Start: 02-18-2022 Blood chemistry [facility] Work Phone: Start: 02-17-2022 Blood chemistry [facility] Work Phone: Start: 02-16-2022 Blood chemistry [facility] Work Phone: Start: 02-15-2022 Blood chemistry [facility] Work Phone: Start: 02-14-2022 Blood chemistry [facility] Work Phone: Start: 02-13-2022 Patient discharge [facility] Work Phone: Start: 02-12-2022 Application of intermittent pneumatic compression device [facility] Work Phone: Start: 02-12-2022 End: 02-12-2022 [facility] Work Phone: Start: 02-11-2022 End: 02-11-2022 [facility] Work Phone: Start: 02-11-2022 Following clinical pathway protocol [facility] Work Phone: Start: 02-11-2022 Assessment of risk of venous thromboembolism [facility] Work Phone: Start: 02-11-2022 Fall prevention [facility] Work Phone: Start: 02-11-2022 Inhalation therapy procedure [facility] Work Phone: Start: 02-11-2022 Insertion of catheter into peripheral vein [facility] Work Phone: Start: 02-11-2022 Introduction of urinary catheter [facility] Work Phone: Start: 02-11-2022 Measuring intake and output [facility] Work Phone: Start: 02-11-2022 Oxygen therapy [facility] Work Phone: Start: 02-11-2022 Providing care according to standard [facility] Work Phone: Start: 02-11-2022 Provision of activity privileges [facility] Work Phone: Start: 02-11-2022 Referral to gastroenterology service [facility] Work Phone: Start: 02-11-2022 Referral to service [facility] Work Phone: Start: 02-11-2022 Catheterization of vein [facility] Work Phone: Start: 02-11-2022 Verification routine [facility] Work Phone: Start: 02-11-2022 Admission procedure [facility] Work Phone: Start: 01-27-2022 Oxygen therapy [facility] Work Phone: Start: 01-27-2022 [facility] Work Phone: Start: 01-10-2022 Influenza vaccination [facility] Start: 10-19-2021 End: 12-19-2021 CBC panel - Blood by Automated count CBC Lab Routine Essential hypertension Expected: 10/19/2021, Expires: 12/19/2021 [facility] Work Phone: Comment on above: Expected: 10/19/2021, Expires: 2 Start: 10-19-2021 End: 12-19-2021 Comprehensive metabolic 2000 panel - Serum or Plasma COMP METABOLIC PANEL Lab Routine Essential hypertension Expected: 10/19/2021, Expires: 12/19/2021 [facility] Work Phone: Comment on above: Expected: 10/19/2021, Expires: 2 Start: 10-19-2021 End: 12-19-2021 Fibrin D-dimer FEU [Mass/volume] in Platelet poor plasma D-DIMER Lab Routine S/P right coronary artery (RCA) stent placement Right-sided chest pain Expected: 10/19/2021, Expires: 12/19/2021 [facility] Work Phone: Comment on above: Expected: 10/19/2021, Expires: 2 Start: 10-19-2021 End: 12-19-2021 Magnesium [Mass/volume] in Serum or Plasma MAGNESIUM BLD Lab Routine S/P right coronary artery (RCA) stent placement Right-sided chest pain Expected: 10/19/2021, Expires: 12/19/2021 [facility] Work Phone: Comment on above: Expected: 10/19/2021, Expires: 2 Start: 07-07-2021 DIABETES SCREEN DIABETES SCREEN [facility] Start: 05-12-2021 ADVANCE DIRECTIVE DISCUSSION ADVANCE DIRECTIVE DISCUSSION [facility] Start: 05-12-2021 DEPRESSION ASSESSMENT DEPRESSION ASSESSMENT [facility] Start: 07-01-2018 FECAL OCCULT BLOOD FECAL OCCULT BLOOD [facility] Start: 07-01-2018 Screening for malignant neoplasm of colon Fecal Occult Blood [facility] Start: 2000 SHINGRIX VACCINE (1 of 2) SHINGRIX VACCINE (1 of 2) [facility] Start: 1995 COLOGUARD (FIT-DNA) COLOGUARD (FIT-DNA) [facility] Start: [address] COLONOGRAPHY [facility] Start: 1995 Screening for malignant neoplasm of colon [facility] Start: 1995 SIGMOIDOSCOPY SIGMOIDOSCOPY [facility] Start: 1980 Zoledronic acid therapy ALPHA-1 ANTITRYPSIN DEFICIENCY SCREENING [facility] Start: 1969 Urine microalbumin profile DTaP,Tdap,Td Vaccine (1 - Tdap) [facility] Start: 1968 Anxiety Screening Anxiety Screening [facility] Start: 1968 BP CONTROLLED (<130/80) BP CONTROLLED (<130/80) [facility] Start: 1968 Depression Screening Depression Screening [facility] Start: 1968 HEPATITIS C SCREENING HEPATITIS C SCREENING [facility] Start: 1968 Hepatitis C screening Hepatitis C Screening [facility] Start: 1968 SPIROMETRY SPIROMETRY [facility] Start: 1956 PNEUMOCOCCAL: 65+ (1 - PCV) PNEUMOCOCCAL: 65+ (1 - PCV) [facility] Start: 1955 COVID-19 VACCINE (#1) COVID-19 VACCINE (#1) [facility] Start: 1950 COVID-19 VACCINE (#1) COVID-19 VACCINE (#1) [facility] Start: 1950 ABDOMINAL AORTIC ANEURYSM SCREENING ABDOMINAL AORTIC ANEURYSM SCREENING [facility] Alanine aminotransfe rase [Enzymatic activity/volume] in Serum or Plasma [facility] Work Phone: Albumin [Mass/volume ] in Serum or Plasma [facility] Work Phone: Alkaline phosphatase [Enzymatic activity/volume] in Serum or Plasma [facility] Work Phone: Anion gap measurement [facility] Work Phone: Aspartate aminotransferase [Enzymatic activity/volume] in Serum or Plasma [facility] Work Phone: Bilirubin, total measurement [facility] Work Phone: BUN/Creatinine ratio [facility] Work Phone: Calcium [Mass/volume ] in Serum or Plasma [facility] Work Phone: Carbon dioxide, tota l [Moles/volume] in Serum or Plasma [facility] Work Phone: Catheterization of l eft heart [facility] Chloride [Moles/volu me] in Serum or Plasma [facility] Work Phone: Creatinine [Moles/vo lume] in Serum or Plasma [facility] Work Phone: CT Chest [facility] Work Phone: End: 10-19-2022 ECG COMPLETE [facility] Work Phone: Comment on above: 1 Occurrences starting 10/19/2021 until 10/19/2022 Glucose [Mass/volume ] in Serum or Plasma [facility] Work Phone: Hematocrit [Volume Fraction] of Blood [facility] Work Phone: Hemoglobin [Mass/vol ume] in Blood [facility] Work Phone: Leukocytes [#/volume ] in Blood [facility] Work Phone: Mean corpuscular hemoglobin concentration determination [facility] Work Phone: Mean corpuscular hemoglobin determination [facility] Work Phone: Measurement of renal function [facility] Work Phone: Neutrophil count [facility] Work Phone: Neutrophil percent differential count [facility] Work Phone: Patient Education [facility] Work Phone: Patient referral [facility] Work Phone: Platelets [#/volume] in Blood [facility] Work Phone: Potassium [Moles/vol ume] in Serum or Plasma [facility] Work Phone: PT PLAN OF CARE CERTIFICATION PT PLAN OF CARE CERTIFICATION Procedures Routine Left hip pain Trochanteric bursitis of left hip Ordered: 04/09/2022 [facility] Comment on above: Ordered: 04/09/2022 Red blood cell count [facility] Work Phone: Red cell distributio n width determination [facility] Work Phone: Sodium [Moles/volume ] in Serum or Plasma [facility] Work Phone: Total protein measurement [facility] Work Phone: Urea nitrogen [Mass/volume] in Serum or Plasma [facility] Work Phone: End: 05-06-2024 Us abdominal aorta real time screen study aaa US SCREENING FOR AAA Radiology Routine Screening for abdominal aortic aneurysm 1 Occurrences starting 04/07/2023 until 05/06/2024 [facility] Work Phone: Comment on above: 1 Occurrences starting 04/07/2023 until 05/06/2024 End: 05-01-2023 XR HIP GENERAL 3V PELV/AP/LAT LEFT XR HIP GENERAL 3V PELV/AP/LAT LEFT Radiology Routine Left hip pain Trochanteric bursitis of left hip 1 Occurrences starting 04/01/2022 until 05/01/2023 [facility] Work Phone: Comment on above: 1 Occurrences starting 04/01/2022 until 05/01/2023 [facility] Immunizations Immunization Date Immunization Notes Care Provider Last locke 07-08-2018 influenza virus vacc ine, unspecified formulation MARRY Ponce PA-C Work Phone: [facility] Payers Date Payer Category Payer Self-pay [id number] 2021 Medicare [employer] MEDICARE [employer] GOLD PLUS [id number] 2021-Present [phone] [address] [place] [address] [id number] 2021 Medicare HUMANA MEDICARE [employer] GOLD PLUS [id number] 2021-Present [phone] [address] [address] [place] [address] HMO [id number] 2021 Medicare (Managed Care) HUMANA G OLD PLUS [id number] 2016 Medicare [id number] Unknown [id number] Unknown [id number] Unknown [id number] Unknown [id number] Unknown [id number] Unknown [id number] Unknown [id number] Unknown [id number] Unknown [id number] Unknown [id number] Social History Date Type Detail Facility Start: 07-02-2017 End: 04-13-2024 Tobacco smoking status [facility] Ex-smoker [facility] Work Phone: Start: 04-28-1977 End: 04-28-2017 History of tobacco use Current smoker [facility] Work Phone: Start: 04-28-1977 End: 04-28-2017 History of tobacco use Cigarette Smoker [facility] Work Phone: Start: 07-02-2017 End: 09-30-2022 Cigarettes smoked current (pack per day) - Reported 0.1 [facility] Start: 07-02-2017 End: 04-20-2024 Tobacco use and exposure Smokeless tobacco non-user [facility] Work Phone: Start: 05-23-2020 End: 07-05-2024 Alcohol intake Current non-drinker of alcohol (finding) [facility] Start: 01-27-2017 End: 02-04-2022 Tobacco Comment 3 per day [facility] Start: 1950 Sex Assigned At Not on file [facility] Start: 10-09-2021 End: 04-01-2022 Exposure to SARS-CoV-2 (event) Not sure [facility] Start: 01-02-2022 End: 08-19-2023 Tobacco smoking status GAIS Unknown if ever smoked [facility] Start: 07-10-2018 Occasional [facility] Start: 07-10-2018 None [facility] Start: 07-10-2018 Spouse/ Significant Other [facility] Start: 07-11-2018 Cigarettes [facility] Start: 1950 Sex Assigned At Male [facility] Start: 09-30-2022 End: 04-07-2023 Alcohol Use Disorder Identification Test - Consumption [AUDIT-C] [facility] How often to you hav e a drink containing alcohol? Never [facility] How many standard dr inks containing alcohol do you have on a typical day? Patient does not drink [facility] Start: 04-28-1977 Tobacco smoking status NHIS Occasional tobacco smoker [facility] Medical Equipment Procedure Code Equipment Code Equipment Origin al Text Equipment Identifier Dates Lens Acrysof Iq +24 Diopter 0 D Biconvex Acrylic 13mm Iol 1 Piece Foldable - [id number] Start: 06-17-2016 Lens Acrysof Iq +22.5 Diopter Natural Stableforce 0 D Biconvex 118.7 - [id number] Start: 07-01-2016 Plate Lcp Combi Stainless Steel 120mm Bone 7 Hole Lateral Extension - [id number] Start: 09-02-2017 Screw Dcp 2.7mm 5mm Stainless Steel 24mm Bone Self Tap Cruciform Mini - [id number] Start: 09-02-2017 Screw Lcp 3.5mm Stainless Steel 18mm Bone Self Tapping Nonsterile Cortical - [id number] Start: 09-02-2017 Screw Lc-Dcp Dcp 3.5mm 6mm Full Thread Hexagon Stainless Steel 20mm Bone - [id number] Start: 09-02-2017 Screw Lcp 3.5mm Stainless Steel 24mm Bone Self Tapping Small Fragment - [id number] Start: 09-02-2017 Screw Lcp 2.4mm 4mm Stainless Steel 16mm Bone T8 Stardrive Self Tap Low - [id number] Start: 09-02-2017 Screw Lcp 2.7mm T8 Stainless Steel 16mm Bone Self Tap Self Retaining - [id number] Start: 09-02-2017 Screw Lcp 2.7mm T8 Stainless Steel 14mm Bone Self Tap Self Retaining - [id number] Start: 09-02-2017 Goals Date Patient Goal Desired Activity /State Functional Status Date Assessment Result Facility 02-13-2022 Functional status [employer] [facility] Work Phone: 09-03-2017 Are you deaf, or do you have serious difficulty hearing No 09/03/2017 9:33 AM [place] RN No [facility] 09-03-2017 Are you blind, or do you have serious difficulty seeing, even when wearing glasses No 09/03/2017 9:33 AM [place] RN No [facility] 09-03-2017 Do you have serious difficulty walking or climbing stairs No 09/03/2017 9:33 AM [place] RN [facility] 09-03-2017 Do you have difficul ty dressing or bathing No 09/03/2017 9:33 AM [place] RN [facility] 09-03-2017 Because of a physica l, mental, or emotional condition, do you have difficulty doing errands alone such as visiting a physician's office or shopping No 09/03/2017 9:33 AM [place] RN No [facility] Mental Status Date Assessment Result Facility 02-12-2022 Cognitive function Demonstrates ability to follow instructions/comprehend [facility] Work Phone: 02-11-2022 Cognitive function Appropriate;Cooperativ e [facility] Work Phone: 01-27-2022 Cognitive function Voice/Name [facility] Work Phone: 09-03-2017 Because of a physica l, mental, or emotional condition, do you have serious difficulty concentrating, remembering, or making decisions No 09/03/2017 9:33 AM [place] RN No [facility] Clinical Notes 08-11-2017 to 10-12-2024 Anh Epps APRN.[facility] - 09/28/2024 8:02 AM EDTTelephone Encounter - Vida Miranda MA - 07/12/2024 12:22 PM ESTTelephone Encounter - Vida Miranda MA - 07/12/2024 12:22 PM ESTPatient Instructions Note Date & Type Note Facility 10-12-2024 Note HNO ID: [id number] Author: ANH EPPS APRN.LUZ MARINA Service: ? Author Type: Nurse Practitioner Type: Progress Notes Filed: 10/12/2024 08:24 Note Text: This is a 74 year old male who presents today with: Patient presents with: 6 Month Exam HISTORY OF PRESENT ILLNESS: Yariel Holder is a 74 year old male. Patient presents with: 6 Month Exam Juan is a 74-year-old male with a history of COPD, presenting for an annual wellness visit and evaluation of dyspnea. Annual Wellness Exam: - Denies recent weight loss or gain, fever, chills, headaches, changes in hearing or vision, neck swelling, chest pain, leg swelling, orthopnea, palpitations, heartburn, nausea, emesis, diarrhea, constipation, dysuria, hematuria, excessive thirst, syncope, seizures, tremors, hopelessness, or suicidal ideation. - Denies interest in colonoscopy, shingles vaccine, or COVID-19 vaccine. - Drinks approximately 3 gallons of iced tea daily; avoids water unless boiled. 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 - Considering purchasing an [employer] aircraft. COPD: - Persistent dyspnea, exacerbated by humidity. - Uses portable oxygen canister PRN. - Has not used nebulizer in several months. - Denies recent increase in Trelegy dosage. - Reports cough, but denies wheezing. - Recent CT scan in April. PAST MEDICAL HISTORY: PAST MEDICAL HISTORY Diagnosis Date HLD (hyperlipidemia) HTN (hypertension) Pneumothorax on left 12/09/2016 small apical associated with trauma multiple rib fractures RSV (acute bronchiolitis due to respiratory syncytial virus) 05/19/2017 admitted through ED with SOB, cough, hypoxia SaO2 82%. CXR hyperinflation. Tx duonebs, IV Solu Medrol. discharged 05/21/17 on prednison taper SVT (supraventricular tachycardia) (HCC) occurred following chest trauma with multiple rib fractures Tobacco use disorder PAST SURGICAL HISTORY Procedure Laterality Date EGD W/O BRSH SPEC VARICIES INJ N/A 02/12/2022 [facility] EXTRACTION ERUPTED TOOTH full dental extraction TONSILLECTOMY PRIMARY/SECONDARY Tonsillectomy XCAPSL CTRC RMVL INSJ IO LENS PROSTH W/O ECP Right 06/17/[address] Lizama ALLERGIES Bee Sting and Milk MEDICATIONS Current Outpatient Medications Medication Sig TRELEGY ELLIPTA 200-62.5-25 mcg inhalation powder Inhale 1 puff as instructed once daily. fluticasone (FLONASE) 50 mcg/actuation nasal spray Use 2 sprays in each nostril once daily. ipratropium-albuterol (DUONEB) 0.5 mg-3 mg(2.5 mg base)/3 mL nebu Inhale 3 mL as instructed every 6 hours as needed for wheezing/shortness of breath. albuterol HFA (PROAIR HFA) 90 mcg/actuation inhaler Inhale 2 Puffs as instructed every 6 hours as needed. carvedilol (COREG) 12.5 mg tablet Take 1 tablet by mouth two times a day. losartan (COZAAR) 100 mg tablet Take 100 mg by mouth once daily. isosorbide mononitrate ER (IMDUR) 30 mg 24 hr tablet Take 30 mg by mouth two times a day. triamcinolone acetonide (KENALOG) 0.1 % cream Apply 1 application to affected area twice daily. TRELEGY ELLIPTA 100-62.5-25 mcg inhalation powder Inhale 1 Puff as instructed once daily. atorvastatin (LIPITOR) 40 mg tablet Take 40 mg by mouth once daily. nitroglycerin sublingual (NITROQUICK) 0.4 mg SL tablet Dissolve 0.4 mg under the tongue every 5 minutes as needed. EPINEPHrine (EPIPEN 2-SIDNEY) 0.3 mg/0.3 mL auto-injector Inject 0.3 mL intramuscularly as needed. multivitamin tablet Take 1 tablet by mouth once daily. No current facility-administered medications for this visit. FAMILY HISTORY Problem Relation Age of Onset No Ocular Disease Father Alcohol/Drug Father Cataract Mother Diabetes Mother Social History Tobacco Use Smoking status: Some Days Current packs/day: 0.00 Average packs/day: 0.1 packs/day for 40.0 years (4.0 ttl pk-yrs) Types: Cigarettes Start date: 04/28/1977 Last attempt to quit: 04/28/2017 Years since quittin.4 Smokeless tobacco: Never Tobacco comments: 3 per day Substance Use Topics Alcohol use: No Drug use: No REVIEW OF SYSTEMS Constitutional: (-) weight loss, (-) weight gain, (-) fever, (-) chills Head: (-) headaches Eyes: (-) vision changes Ears/Nose/Mouth/Throat: (-) hearing changes Neck: (-) neck swelling Cardiovascular: (-) palpitations, (-) peripheral edema Respiratory: (+) dyspnea, (+) cough, (-) wheeze, (-) orthopnea Gastrointestinal: (-) heartburn, (-) nausea, (-) vomiting, (-) diarrhea, (-) constipation Genitourinary: (-) dysuria, (-) hematuria Musculoskeletal: (+) joint pain Neurological: (-) syncope, (-) seizures, (-) tremors Psychiatric: (-) hopelessness, (-) suicidal ideation Endocrine: (+) polydipsia EXAM: BP 150/88 Pulse 74 Wt 78.5 kg (173 lb) SpO2 94% BMI 25.92 kg/m? PHYSICAL EXAM: GENERAL: NAD, alert and oriented. SKIN: Unremarkable, no rash or skin lesions. HEAD: Normocephalic. NECK: Supple, no lymphadenopathy, normal th (more content not included)... [facility] 09-28-2024 Note HNO ID: [id number] Author: ANH PEPS APRN.CNP Service: ? Author Type: Nurse Practitioner Type: Progress Notes Filed: 09/28/2024 08:03 Note Text: I prefer to get labs when I see this patient. I do not want to do them ahead of time and miss out on opportunity for other labs. I will review his concerns and address them along with screening labs. [facility] 09-28-2024 History of Present illness Narrative I prefer to get labs when I see this patient. I do not want to do them ahead of time and miss out on opportunity for other labs. I will review his concerns and address them along with screening labs. documented in this encounter [facility] 09-28-2024 Note Patient Outreach (IN TMMN) YARIEL HOLDER ([id number]) 1950 Date Time Provider Department 09/28/24 ANH EPPS During your visit today, we recorded the following information about you: Anh Epps APRN.CNP 09/28/2024 8:03 AM Signed I prefer to get labs when I see this patient. I do not want to do them ahead of time and miss out on opportunity for other labs. I will review his concerns and address them along with screening labs. Allergies As of Date: 09/28/2024 Noted Allergy Reaction BEE STING 02/12/2016 10 - Anaphylaxis MILK 02/12/2016 14 - Other: See Comments Comments: sneezing with any dairy product Date Reviewed: 04/20/2024 Reviewed by: Kayla Humphrey APRN.FUNDRAISING SALE REPRESENTATIVE - Fully Assessed Visit Diagnoses:Essential hypertension [I10] HLD (hyperlipidemia) [E78.5] Prescriptions as of 09/28/2024 - ipratropium-albuterol (DUONEB) 0.5 mg-3 mg(2.5 mg base)/3 mL nebu Inhale 3 mL as instructed every 6 hours as needed for wheezing/shortness of breath. - albuterol HFA (PROAIR HFA) 90 mcg/actuation inhaler Inhale 2 Puffs as instructed every 6 hours as needed. - carvedilol (COREG) 12.5 mg tablet Take 1 tablet by mouth two times a day. - losartan (COZAAR) 100 mg tablet Take 100 mg by mouth once daily. - isosorbide mononitrate ER (IMDUR) 30 mg 24 hr tablet Take 30 mg by mouth once daily. - triamcinolone acetonide (KENALOG) 0.1 % cream Apply 1 application to affected area twice daily. - TRELEGY ELLIPTA 100-62.5-25 mcg inhalation powder Inhale 1 Puff as instructed once daily. - atorvastatin (LIPITOR) 40 mg tablet Take 40 mg by mouth once daily. - nitroglycerin sublingual (NITROQUICK) 0.4 mg SL tablet Dissolve 0.4 mg under the tongue every 5 minutes as needed. - EPINEPHrine (EPIPEN 2-SIDNEY) 0.3 mg/0.3 mL auto-injector Inject 0.3 mL intramuscularly as needed. - multivitamin tablet Take 1 tablet by mouth once daily. 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] 02/13/2016 Astigmatism of both eyes [H52.203] 02/13/2016 Vitreous floaters of both eyes [H43.393] 02/13/2016 Essential hypertension [I10] 02/26/2016 S/P cataract extraction and insertion of intrao*07/02/2016 08/25/2017 Fracture of multiple ribs of left side with rou*12/17/2016 01/31/2022 Closed fracture of interligamentous part of lef*12/17/2016 08/25/2017 Chronic respiratory failure with hypoxia (HCC) *12/17/2016 08/25/2017 Tobacco dependence [F17.200] 12/17/2016 08/25/2017 Acute respiratory failure with hypoxia (HCC) [J*05/23/2017 08/25/2017 Closed displaced fracture of left clavicle with*08/11/2017 08/25/2017 Closed displaced fracture of shaft of left clav*08/13/2017 01/31/2022 HLD (hyperlipidemia) [E78.5] 08/25/2017 S/P right coronary artery (RCA) stent placement*04/23/2019 SOB (shortness of breath) [R06.02] 11/19/2019 01/31/2022 Chronic obstructive pulmonary disease (HCC) [J4*10/19/2021 Bronchiectasis without complication (HCC) [J47.*10/19/2021 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 Dates are 06/28/24 to present Vida Miranda MA July 12, 2024 12:22 PM [facility] 07-12-2024 Miscellaneous Notes Patient stopped by office. Dates are 06/28/24 to present Vida Miranda MA July 12, 2024 12:22 PM Left message for patient to return call. Vida Miranda Ma Please clarify with patient exactly what dates he missed work. I do want to mess this up and have him within unexcused absence. I will complete it tomorrow as soon as I get that information. Type of form: FMLA Form received via walk in When form is completed, Fax form to Form has been forwarded to Nurse Practitioner: Pearl Miranda MA documented in this encounter [facility] 07-09-2024 Telephone encounter Note Left message for patient to return call. Vida Miranda Ma [facility] 07-08-2024 Telephone encounter Note Please clarify with patient exactly what dates he missed work. I do want to mess this up and have him within unexcused absence. I will complete it tomorrow as soon as I get that information. [facility] 07-08-2024 Telephone encounter Note Type of form: FMLA Form received via walk in When form is completed, Fax form to Form has been forwarded to Nurse Practitioner: Pearl Miranda MA [facility] 07-05-2024 Instructions Anh Epps APRN.CNP - 07/05/2024 9:58 AM EST - Keep appt. In October as scheduled - AZITHROMYCIN 250 MG TABLET for 5 days (2 tablets today, 1 daily for 4 more days) - PREDNISONE 20 MG TABLET for 5 days - BENZONATATE 100 MG CAPSULE 3 times a day as needed - ALBUTEROL SULFATE HFA 90 MCG/ACTUATION AEROSOL INHALER - Return to work Friday if able documented in this encounter [facility] 07-05-2024 Note HNO ID: [id number] Author: ANH EPPS APRN.CNP Service: ? Author Type: Nurse Practitioner Type: Progress Notes Filed: 07/05/2024 09:59 Note Text: This is a 74 year old male who presents today with: No chief complaint on file. HISTORY OF PRESENT ILLNESS: Yariel Holder is a 74 year old male. No chief complaint on file. Got sick 2 weeks ago Took Medication as prescribed. Dx with influenza. had it too Feeling very fatigued and SOB especially with exertion. Cough better. No headache. Body aches are better. PAST MEDICAL HISTORY: PAST MEDICAL HISTORY Diagnosis Date HLD (hyperlipidemia) HTN (hypertension) Pneumothorax on left 12/09/2016 small apical associated with trauma multiple rib fractures RSV (acute bronchiolitis due to respiratory syncytial virus) 05/19/2017 admitted through ED with SOB, cough, hypoxia SaO2 82%. CXR hyperinflation. Tx duonebs, IV Solu Medrol. discharged 05/21/17 on prednison taper SVT (supraventricular tachycardia) (HCC) occurred following chest trauma with multiple rib fractures Tobacco use disorder PAST SURGICAL HISTORY Procedure Laterality Date EGD W/O BRSH SPEC VARICIES INJ N/A 02/12/2022 [facility] EXTRACTION ERUPTED TOOTH full dental extraction TONSILLECTOMY PRIMARY/SECONDARY Tonsillectomy XCAPSL CTRC RMVL INSJ IO LENS PROSTH W/O ECP Right 06/17/[address] Lizama ALLERGIES Bee Sting and Milk MEDICATIONS Current Outpatient Medications Medication Sig albuterol HFA (PROAIR HFA) 90 mcg/actuation inhaler Inhale 2 Puffs as instructed every 6 hours as needed. TRELEGY ELLIPTA 100-62.5-25 mcg inhalation powder Inhale 1 Puff as instructed once daily. ipratropium-albuterol (DUONEB) 0.5 mg-3 mg(2.5 mg base)/3 mL nebu Inhale 3 mL as instructed every 6 hours as needed for wheezing/shortness of breath. carvedilol (COREG) 12.5 mg tablet Take 1 tablet by mouth two times a day. losartan (COZAAR) 100 mg tablet Take 100 mg by mouth once daily. isosorbide mononitrate ER (IMDUR) 30 mg 24 hr tablet Take 30 mg by mouth once daily. triamcinolone acetonide (KENALOG) 0.1 % cream Apply 1 application to affected area twice daily. atorvastatin (LIPITOR) 40 mg tablet Take 40 mg by mouth once daily. nitroglycerin sublingual (NITROQUICK) 0.4 mg SL tablet Dissolve 0.4 mg under the tongue every 5 minutes as needed. EPINEPHrine (EPIPEN 2-SIDNEY) 0.3 mg/0.3 mL auto-injector Inject 0.3 mL intramuscularly as needed. multivitamin tablet Take 1 tablet by mouth once daily. No current facility-administered medications for this visit. FAMILY HISTORY Problem Relation Age of Onset No Ocular Disease Father Alcohol/Drug Father Cataract Mother Diabetes Mother Social History Tobacco Use Smoking status: Some Days Current packs/day: 0.00 Average packs/day: 0.1 packs/day for 40.0 years (4.0 ttl pk-yrs) Types: Cigarettes Start date: 04/28/1977 Last attempt to quit: 04/28/2017 Years since quittin.1 Smokeless tobacco: Never Tobacco comments: 3 per day Substance Use Topics Alcohol use: No Drug use: No WBC 13.4, Hgb 15.2, Hct 46, platelets 106 Na 140, K+ 4.5, BUN 17, creat. 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 PHYSICAL EXAM: Physical Exam Vitals reviewed. Constitutional: Appearance: Normal appearance. HENT: Head: Normocephalic. Cardiovascular: Rate and Rhythm: Normal rate and regular rhythm. Pulses: Normal pulses. Heart sounds: Normal heart sounds. Comments: Very distant heart sounds, difficult to ausculatate Pulmonary: Breath sounds: No wheezing, rhonchi or rales. Comments: Bronchial and chuy. Bases absent lung sounds Musculoskeletal: General: Normal range of motion. Comments: Moves all ext. And walks w/o assistive device Skin: General: Skin is warm. Comments: dusky Neurological: Mental Status: He is alert. LABS: ASSESSMENT/PLAN: 1. Influenza A - ICD9: 487.1, ICD10: J10.1 (primary diagnosis) Over 7 days- now with COPD exacerbation - AZITHROMYCIN 250 MG TABLET 2. Asthma with COPD with exacerbation (HCC) - ICD9: 493.22, ICD10: J44.1 - acute exacerbation - Avoidance of triggers recommended - AZITHROMYCIN 250 MG TABLET for 5 days - PREDNISONE 20 MG TABLET for 5 days - BENZONATATE 100 MG CAPSULE 3 times a day as needed - ALBUTEROL SULFATE HFA 90 MCG/ACTUATION AEROSOL INHALER - Return to work Friday if able Discussed treatment plan and patient voices understanding. Patient's questions answered appropriately. Medications and potential side effects were discussed and patient voices understanding. Return to the office as scheduled or as needed for worsening/no improvement. Anh Epps, RESIDENTIAL SUBCONTRACTOR.[facility] 07-05-2024 History of Present illness Narrative This is a 74 year old male who presents today with: No chief complaint on file. HISTORY OF PRESENT ILLNESS: Yariel Holder is a 74 year old male. No chief complaint on file. Got sick 2 weeks ago Took Medication as prescribed. Dx with influenza. had it too Feeling very fatigued and SOB especially with exertion. Cough better. No headache. Body aches are better. PAST MEDICAL HISTORY: PAST MEDICAL HISTORY Diagnosis Date HLD (hyperlipidemia) HTN (hypertension) Pneumothorax on left 12/09/2016 small apical associated with trauma multiple rib fractures RSV (acute bronchiolitis due to respiratory syncytial virus) 05/19/2017 admitted through ED with SOB, cough, hypoxia SaO2 82%. CXR hyperinflation. Tx duonebs, IV Solu Medrol. discharged 05/21/17 on prednison taper SVT (supraventricular tachycardia) (HCC) occurred following chest trauma with multiple rib fractures Tobacco use disorder PAST SURGICAL HISTORY Procedure Laterality Date EGD W/O BRSH SPEC VARICIES INJ N/A 02/12/2022 [facility] EXTRACTION ERUPTED TOOTH full dental extraction TONSILLECTOMY PRIMARY/SECONDARY <AGE 12 Tonsillectomy XCAPSL CTRC RMVL INSJ IO LENS PROSTH W/O ECP Right 06/17/[address] Lizama ALLERGIES Bee Sting and Milk MEDICATIONS Current Outpatient Medications Medication Sig albuterol HFA (PROAIR HFA) 90 mcg/actuation inhaler Inhale 2 Puffs as instructed every 6 hours as needed. TRELEGY ELLIPTA 100-62.5-25 mcg inhalation powder Inhale 1 Puff as instructed once daily. ipratropium-albuterol (DUONEB) 0.5 mg-3 mg(2.5 mg base)/3 mL nebu Inhale 3 mL as instructed every 6 hours as needed for wheezing/shortness of breath. carvedilol (COREG) 12.5 mg tablet Take 1 tablet by mouth two times a day. losartan (COZAAR) 100 mg tablet Take 100 mg by mouth once daily. isosorbide mononitrate ER (IMDUR) 30 mg 24 hr tablet Take 30 mg by mouth once daily. triamcinolone acetonide (KENALOG) 0.1 % cream Apply 1 application to affected area twice daily. atorvastatin (LIPITOR) 40 mg tablet Take 40 mg by mouth once daily. nitroglycerin sublingual (NITROQUICK) 0.4 mg SL tablet Dissolve 0.4 mg under the tongue every 5 minutes as needed. EPINEPHrine (EPIPEN 2-SIDNEY) 0.3 mg/0.3 mL auto-injector Inject 0.3 mL intramuscularly as needed. multivitamin tablet Take 1 tablet by mouth once daily. No current facility-administered medications for this visit. FAMILY HISTORY Problem Relation Age of Onset No Ocular Disease Father Alcohol/Drug Father Cataract Mother Diabetes Mother Social History Tobacco Use Smoking status: Some Days Current packs/day: 0.00 Average packs/day: 0.1 packs/day for 40.0 years (4.0 ttl pk-yrs) Types: Cigarettes Start date: 04/28/1977 Last attempt to quit: 04/28/2017 Years since quittin.1 Smokeless tobacco: Never Tobacco comments: 3 per day Substance Use Topics Alcohol use: No Drug use: No WBC 13.4, Hgb 15.2, Hct 46, platelets 106 Na 140, K+ 4.5, BUN 17, creat. 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 Constitutional: Appearance: Normal appearance. HENT: Head: Normocephalic. Cardiovascular: Rate and Rhythm: Normal rate and regular rhythm. Pulses: Normal pulses. Heart sounds: Normal heart sounds. Comments: Very distant heart sounds, difficult to ausculatate Pulmonary: Breath sounds: No wheezing, rhonchi or rales. Comments: Bronchial and chuy. Bases absent lung sounds Musculoskeletal: General: Normal range of motion. Comments: Moves all ext. And walks w/o assistive device Skin: General: Skin is warm. Comments: dusky Neurological: Mental Status: He is alert. LABS: ASSESSMENT/PLAN: 1. Influenza A - ICD9: 487.1, ICD10: J10.1 (primary diagnosis) Over 7 days- now with COPD exacerbation - AZITHROMYCIN 250 MG TABLET 2. Asthma with COPD with exacerbation ([facility]) - ICD9: 493.22, ICD10: J44.1 - acute exacerbation - Avoidance of triggers recommended - AZITHROMYCIN 250 MG TABLET for 5 days - PREDNISONE 20 MG TABLET for 5 days - BENZONATATE 100 MG CAPSULE 3 times a day as needed - ALBUTEROL SULFATE HFA 90 MCG/ACTUATION AEROSOL INHALER - Return to work Friday if able Discussed treatment plan and patient voices understanding. Patient's questions answered appropriately. Medications and potential side effects were discussed and patient voices understanding. Return to the office as scheduled or as needed for worsening/no improvement. Anh Epps APRN.FUNDRAISING SALE REPRESENTATIVE documented in this encounter [facility] 06-30-2024 Note [facility] Medical Records Department [address] [place] [id number] Discharge Summary 06/30/24 1124 MR#: [id number] Acct: [id number] Name: YARIEL HOLDER Rep #: [id number] : 1950 74 From: Aron Rich MD PCP: MARC Iglesias Status:ADM IN Location: [facility] [place] [id number] Providers Date of Admission: 06/28/24 Date of Discharge: 06/30/24 Primary Care Physician: MARC Iglesias Reason For Visit: AE COPD ACUTE RESPIRATORY INSUFFICIENCY FEVER Diagnosis Discharge Diagnosis (1) COPD exacerbation: Status: Chronic Code(s): J44.1 - Chronic obstructive pulmonary disease with (acute) exacerbation (2) Influenza A: Status: Acute Code(s): J10.1 - Influenza due to other identified influenza virus with other respiratory manifestations (3) Respiratory insufficiency: Status: Acute Code(s): R06.89 - Other abnormalities of breathing (4) Essential (primary) hypertension: Status: Chronic Code(s): I10 - Essential (primary) hypertension (5) Hyperlipidemia: Status: Chronic Code(s): E78.5 - Hyperlipidemia, unspecified Qualifiers: Hyperlipidemia type: pure hypercholesterolemia Qualified Code(s): E78.00 - Pure hypercholesterolemia, unspecified (6) History of coronary artery stent placement: Status: Resolved Code(s): Z95.5 - Presence of coronary angioplasty implant and graft (7) Atherosclerotic heart disease of [place] coronary artery without angina pectoris: Status: Chronic Code(s): I25.10 - Atherosclerotic heart disease of [place] coronary artery without angina pectoris Qualifiers: [place] vs. transplanted heart: [place] heart Qualified Code(s): I25.10 - Atherosclerotic heart disease of [place] coronary artery without angina pectoris Plan 1. Acute exacerbation of COPD from influenza A bronchitis: Patient is being admitted to the floor. Patient is being managed on scheduled bronchodilator, IV Solu-Medrol, Mucinex, incentive spirometry and Pep. On IV doxycycline. Tamiflu started. On scheduled guaifenesin. 06/29: Subjectively patient feeling better but needs 1 more day of bronchodilation and Solu-Medrol. Continue without treatment. Doxycycline IV changed to oral 06/30: Patient feels good. Ready to go home. Advised quitting his smoking. He states he goes without a smoking for few weeks and then he starts smoking 1 to 2 cigarettes/day again. He follows with [facility] senior technical specialist Dr. Rose Ryan and has appointment in about 2 months. Follow-up PCP in 1 week. Prescription given for burst prednisone therapy, Mucinex DM, Tamiflu and doxycycline. Continue incentive spirometry and PEP for 1 week. I have reviewed the oxygen testing, and this patient qualifies for the home equipment and portability. The patient is mobile in the home and the community. 2.. Essential Hypertension; on losartan and carvedilol - Continue home regimen plus give hydralazine IV prn for systolic blood pressure > 160 mmHg. 3. Hyperlipidemia; on atorvastatin - Resume atorvastatin as previous. 4. CAD; s/p PA with mid-RCA stent (2019) on baby aspirin daily - Maintain daily BASA. 5. Chronic hiatus hernia and history of gastric ulcer: On famotidine 6. Chronic primary OA; with history of shoulder surgery - Give acetaminophen as needed per pain scale noted above. 7. DVT prophylaxis - Lovenox 40 mg sq daily plus SCD's. Discharge medication reconciliation done. Discharge follow-up instructions completed. Discharge process discussed with the patient and all questions were answered to patient's satisfaction. Follow with PCP in 1 to 2 weeks Total time spent, exact 35 minutes on discharge meds reconciliation, examination, coordination of care with nurses and ancillary staff, review of imaging and blood test and discussion with the patient on follow-up instructions. Medications at Discharge Home Medications sssbhmpc-jyc-wehrf acid 0.4 mg-lycopene 300 mcg-lutein 250 mcg tablet (Centrum Silver) 1 tab PO DAILY supplement 02/11/22 triamcinolone acetonide 0.1 % topical cream 0.1 applic topical BID PRN rash 02/11/22 nitroglycerin 0.4 mg sublingual tablet 0.4 mg sublingual Q5M PRN Angina pain #25 tabs 10/29/22 fluticasone propionate 50 mcg/actuation nasal spray,suspension 2 spray intranasal DAILY copd #16 grams 02/12/23 atorvastatin 40 mg tablet 40 mg PO DAILY hld #90 tabs 08/23/23 losartan 100 mg tablet 100 mg PO DAILY bp #90 TABLETS 12/08/23 ipratropium 0.5 mg-albuterol 3 mg (2.5 mg base)/3 mL nebulization soln 3 ml inhalation Q4H PRN PRN SOB /OR WHEEZING #180 mL 01/02/24 aspirin 81 mg tablet,delayed release (Adult Aspirin Regimen) 81 mg PO DAILY PRN thin blood 02/05/24 isosorbide mononitrate 30 mg tablet,extended release 24 hr 30 mg PO BID heart #180 tabs 02/05/24 albuterol sulfate 90 mcg/actuation aerosol inhaler (Ventolin HFA) 2 puff inhalation Q4H #8.5 grams 03/03/24 fluticasone fur. 200 mcg-umeclid 62.5 mcg-vilan (more content not included)... [facility] 04-20-2024 Note HNO ID: [id number] Author: KAYLA HUMPHREY APRN.FUNDRAISING SALE REPRESENTATIVE Service: ? Author Type: Nurse Practitioner Type: Progress Notes Filed: 04/20/2024 12:08 Note Text: CC: Patient presents with: URI: 5-6 days cough moist productive with clear to yellow sputum nasal drainage is clear with some congestion usually gets treated with amoxicillin and works well HPI: Yariel Holder is a 73 year old male who presents to the office with above complaint Symptoms began about 6 days ago and are improving starting this morning. Symptoms include: Temperature elevation: No Chills: No Cough: Yes productive with clear sputum, occasionally light yellow Shortness of breath: No Fatigue: No Muscle aches: No Headache: No New loss of smell or taste: No Sore throat: No Nasal congestion: Yes Rhinorrhea: Yes, clear nasal discharge Nausea and/or vomiting: No Diarrhea: No Other Associated symptoms: ear pressure . PMH: asthma OTC meds/remedies that patient has tried: OTC cold medicine. Exposures: Sick contacts? No Family or close contacts with confirmed/probable COVID-19 in last 14 days? No Home COVID test: yes, negative Review of Systems See HPI PAST MEDICAL HISTORY Diagnosis Date HLD (hyperlipidemia) HTN (hypertension) Pneumothorax on left 12/09/2016 small apical associated with trauma multiple rib fractures RSV (acute bronchiolitis due to respiratory syncytial virus) 05/19/2017 admitted through ED with SOB, cough, hypoxia SaO2 82%. CXR hyperinflation. Tx duonebs, IV Solu Medrol. discharged 05/21/17 on prednison taper SVT (supraventricular tachycardia) (HCC) occurred following chest trauma with multiple rib fractures Tobacco use disorder PAST SURGICAL HISTORY Procedure Laterality Date EGD W/O BRSH SPEC VARICIES INJ N/A 02/12/2022 [facility] EXTRACTION ERUPTED TOOTH full dental extraction TONSILLECTOMY PRIMARY/SECONDARY Tonsillectomy XCAPSL CTRC RMVL INSJ IO LENS PROSTH W/O ECP Right 06/17/[address] Lizama ALLERGIES Bee Sting and Milk MEDICATIONS carvedilol (COREG) 12.5 mg tablet Take 1 tablet by mouth two times a day. albuterol HFA (PROAIR HFA) 90 mcg/actuation inhaler Inhale 2 Puffs as instructed every 6 hours as needed. losartan (COZAAR) 100 mg tablet Take 100 mg by mouth once daily. isosorbide mononitrate ER (IMDUR) 30 mg 24 hr tablet Take 30 mg by mouth once daily. triamcinolone acetonide (KENALOG) 0.1 % cream Apply 1 application to affected area twice daily. TRELEGY ELLIPTA 100-62.5-25 mcg inhalation powder Inhale 1 Puff as instructed once daily. atorvastatin (LIPITOR) 40 mg tablet Take 40 mg by mouth once daily. nitroglycerin sublingual (NITROQUICK) 0.4 mg SL tablet Dissolve 0.4 mg under the tongue every 5 minutes as needed. EPINEPHrine (EPIPEN 2-SIDNEY) 0.3 mg/0.3 mL auto-injector Inject 0.3 mL intramuscularly as needed. multivitamin tablet Take 1 tablet by mouth once daily. FAMILY HISTORY Problem Relation Age of Onset No Ocular Disease Father Alcohol/Drug Father Cataract Mother Diabetes Mother Social History Tobacco Use Smoking status: Some Days Current packs/day: 0.00 Average packs/day: 0.1 packs/day for 40.0 years (4.0 ttl pk-yrs) Types: Cigarettes Start date: 04/28/1977 Last attempt to quit: 04/28/2017 Years since quittin.9 Smokeless tobacco: Never Tobacco comments: 3 per day Substance Use Topics Alcohol use: No Drug use: No BP 118/76 Pulse 73 Temp 37.3 ?C (99.1 ?F) (Temporal) Wt 80.2 kg (176 lb 12.9 oz) SpO2 96% BMI 26.49 kg/m? Physical Exam Vitals reviewed. Constitutional: General: He is not in acute distress. Appearance: He is ill-appearing. He is not toxic-appearing. HENT: Head: Normocephalic and atraumatic. Right Ear: Tympanic membrane normal. Left Ear: Tympanic membrane normal. Nose: Right Sinus: No maxillary sinus tenderness or frontal sinus tenderness. Left Sinus: No maxillary sinus tenderness or frontal sinus tenderness. Mouth/Throat: Lips: [place]. Mouth: Mucous membranes are moist. Pharynx: Oropharynx is clear. Postnasal drip present. Eyes: Conjunctiva/sclera: Conjunctivae normal. Cardiovascular: Rate and Rhythm: Normal rate and regular rhythm. Heart sounds: Normal heart sounds. Pulmonary: Effort: Pulmonary effort is normal. Breath sounds: Normal breath sounds. No wheezing, rhonchi or rales. Lymphadenopathy: Cervical: No cervical adenopathy. Skin: General: Skin is warm and dry. Neurological: Mental Status: He is alert. ASSESSMENT/PLAN: 1. Respiratory infection - ICD9: 519.8, ICD10: J98.8 Symptoms and exam findings consistent with viral URI. Cough secondary to post nasal drainage. Discussed viral etiology and rationale for treatment. Patient still requesting treatment with Amoxicillin. Stressed to patient that viral infections do not respond to antibiotics and have potential complications including diarrhea and C-diff. I will print prescription (more content not included)... [facility] 04-20-2024 History of Present illness Narrative CC: Patient presents with: URI: 5-6 days cough moist productive with clear to yellow sputum nasal drainage is clear with some congestion usually gets treated with amoxicillin and works well HPI: Yariel Holder is a 73 year old male who presents to the office with above complaint Symptoms began about 6 days ago and are improving starting this morning. Symptoms include: Temperature elevation: No Chills: No Cough: Yes productive with clear sputum, occasionally light yellow Shortness of breath: No Fatigue: No Muscle aches: No Headache: No New loss of smell or taste: No Sore throat: No Nasal congestion: Yes Rhinorrhea: Yes, clear nasal discharge Nausea and/or vomiting: No Diarrhea: No Other Associated symptoms: ear pressure . PMH: asthma OTC meds/remedies that patient has tried: OTC cold medicine. Exposures: Sick contacts? No Family or close contacts with confirmed/probable COVID-19 in last 14 days? No Home COVID test: yes, negative Review of Systems See HPI PAST MEDICAL HISTORY Diagnosis Date HLD (hyperlipidemia) HTN (hypertension) Pneumothorax on left 12/09/2016 small apical associated with trauma multiple rib fractures RSV (acute bronchiolitis due to respiratory syncytial virus) 05/19/2017 admitted through ED with SOB, cough, hypoxia SaO2 82%. CXR hyperinflation. Tx duonebs, IV Solu Medrol. discharged 05/21/17 on prednison taper SVT (supraventricular tachycardia) (HCC) occurred following chest trauma with multiple rib fractures Tobacco use disorder PAST SURGICAL HISTORY Procedure Laterality Date EGD W/O BRSH SPEC VARICIES INJ N/A 02/12/2022 [facility] EXTRACTION ERUPTED TOOTH full dental extraction TONSILLECTOMY PRIMARY/SECONDARY <AGE 12 Tonsillectomy XCAPSL CTRC RMVL INSJ IO LENS PROSTH W/O ECP Right 06/17/[address] Lizama ALLERGIES Bee Sting and Milk MEDICATIONS carvedilol (COREG) 12.5 mg tablet Take 1 tablet by mouth two times a day. albuterol HFA (PROAIR HFA) 90 mcg/actuation inhaler Inhale 2 Puffs as instructed every 6 hours as needed. losartan (COZAAR) 100 mg tablet Take 100 mg by mouth once daily. isosorbide mononitrate ER (IMDUR) 30 mg 24 hr tablet Take 30 mg by mouth once daily. triamcinolone acetonide (KENALOG) 0.1 % cream Apply 1 application to affected area twice daily. TRELEGY ELLIPTA 100-62.5-25 mcg inhalation powder Inhale 1 Puff as instructed once daily. atorvastatin (LIPITOR) 40 mg tablet Take 40 mg by mouth once daily. nitroglycerin sublingual (NITROQUICK) 0.4 mg SL tablet Dissolve 0.4 mg under the tongue every 5 minutes as needed. EPINEPHrine (EPIPEN 2-SIDNEY) 0.3 mg/0.3 mL auto-injector Inject 0.3 mL intramuscularly as needed. multivitamin tablet Take 1 tablet by mouth once daily. FAMILY HISTORY Problem Relation Age of Onset No Ocular Disease Father Alcohol/Drug Father Cataract Mother Diabetes Mother Social History Tobacco Use Smoking status: Some Days Current packs/day: 0.00 Average packs/day: 0.1 packs/day for 40.0 years (4.0 ttl pk-yrs) Types: Cigarettes Start date: 04/28/1977 Last attempt to quit: 04/28/2017 Years since quittin.9 Smokeless tobacco: Never Tobacco comments: 3 per day Substance Use Topics Alcohol use: No Drug use: No BP 118/76 Pulse 73 Temp 37.3 C (99.1 F) (Temporal) Wt 80.2 kg (176 lb 12.9 oz) SpO2 96% BMI 26.49 kg/m Physical Exam Vitals reviewed. Constitutional: General: He is not in acute distress. Appearance: He is ill-appearing. He is not toxic-appearing. HENT: Head: Normocephalic and atraumatic. Right Ear: Tympanic membrane normal. Left Ear: Tympanic membrane normal. Nose: Right Sinus: No maxillary sinus tenderness or frontal sinus tenderness. Left Sinus: No maxillary sinus tenderness or frontal sinus tenderness. Mouth/Throat: Lips: [place]. Mouth: Mucous membranes are moist. Pharynx: Oropharynx is clear. Postnasal drip present. Eyes: Conjunctiva/sclera: Conjunctivae normal. Cardiovascular: Rate and Rhythm: Normal rate and regular rhythm. Heart sounds: Normal heart sounds. Pulmonary: Effort: Pulmonary effort is normal. Breath sounds: Normal breath sounds. No wheezing, rhonchi or rales. Lymphadenopathy: Cervical: No cervical adenopathy. Skin: General: Skin is warm and dry. Neurological: Mental Status: He is alert. ASSESSMENT/PLAN: 1. Respiratory infection - ICD9: 519.8, ICD10: J98.8 Symptoms and exam findings consistent with viral URI. Cough secondary to post nasal drainage. Discussed viral etiology and rationale for treatment. Patient still requesting treatment with Amoxicillin. Stressed to patient that viral infections do not respond to antibiotics and have potential complications including diarrhea and C-diff. I will print prescription for Augmentin post dated for 04/22, if symptoms are worsening by that time he should start the antibiotics. Otherwise recommend symptomatic treatment with prn analgesia and supportive care with fluids and rest. Follow up in 3 to 5 days if symptoms persist or sooner if worsening of symptoms Prescription instructions reviewed with patient as applicable. Potential red flag symptoms discussed with the patient. Reviewed appropriate action plan to take if red flag symptoms occur. Patient agreeable to treatment plan. Kayla Humphrey APRN.FUNDRAISING SALE REPRESENTATIVE documented in this encounter [facility] 04-13-2024 Instructions Anh Epps APRN.CNP - 04/13/2024 8:46 AM EST 1) Labs on Friday- fasting 2) Increase carvedilol to 12.5 mg 2 x day 3) Follow up in 6 months documented in this encounter [facility] 04-13-2024 Note HNO ID: [id number] Author: ANH EPPS APRN.CNP Service: ? Author Type: Clinical Nurse Specialist Type: Progress Notes Filed: 04/13/2024 08:48 Note Text: This is a 73 year old male who presents today with: Patient presents with: 6 Month Exam: Transfer of care HISTORY OF PRESENT ILLNESS: Yariel Holder is a 73 year old male. Patient presents with: 6 Month Exam: Transfer of care Blood pressure is high. In [place] he accidentally doubled up on blood pressure medications and it was much better but still 140's HTN: Patient is compliant with meds Yes Monitors bp at home: Yes Denies side effects: No. Chest pain: No. Dyspnea: Yes. Just restarted Trelegy and doing better Edema: No. Palpitations: No. Syncope: No. Headache: No. Dizziness: No. PAST MEDICAL HISTORY: PAST MEDICAL HISTORY Diagnosis Date HLD (hyperlipidemia) HTN (hypertension) Pneumothorax on left 12/09/2016 small apical associated with trauma multiple rib fractures RSV (acute bronchiolitis due to respiratory syncytial virus) 05/19/2017 admitted through ED with SOB, cough, hypoxia SaO2 82%. CXR hyperinflation. Tx duonebs, IV Solu Medrol. discharged 05/21/17 on prednison taper SVT (supraventricular tachycardia) (HCC) occurred following chest trauma with multiple rib fractures Tobacco use disorder PAST SURGICAL HISTORY Procedure Laterality Date EGD W/O BRSH SPEC VARICIES INJ N/A 02/12/2022 [facility] EXTRACTION ERUPTED TOOTH full dental extraction TONSILLECTOMY PRIMARY/SECONDARY Tonsillectomy XCAPSL CTRC RMVL INSJ IO LENS PROSTH W/O ECP Right 06/17/[address] Lizama ALLERGIES Bee Sting and Milk MEDICATIONS Current Outpatient Medications Medication Sig albuterol HFA (PROAIR HFA) 90 mcg/actuation inhaler Inhale 2 Puffs as instructed every 6 hours as needed. losartan (COZAAR) 100 mg tablet Take 100 mg by mouth once daily. isosorbide mononitrate ER (IMDUR) 30 mg 24 hr tablet Take 30 mg by mouth once daily. triamcinolone acetonide (KENALOG) 0.1 % cream Apply 1 application to affected area twice daily. TRELEGY ELLIPTA 100-62.5-25 mcg inhalation powder Inhale 1 Puff as instructed once daily. carvedilol (COREG) 6.25 mg tablet Take 1 tablet by mouth twice daily. atorvastatin (LIPITOR) 40 mg tablet Take 40 mg by mouth once daily. nitroglycerin sublingual (NITROQUICK) 0.4 mg SL tablet Dissolve 0.4 mg under the tongue every 5 minutes as needed. EPINEPHrine (EPIPEN 2-SIDNEY) 0.3 mg/0.3 mL auto-injector Inject 0.3 mL intramuscularly as needed. multivitamin tablet Take 1 tablet by mouth once daily. No current facility-administered medications for this visit. FAMILY HISTORY Problem Relation Age of Onset No Ocular Disease Father Alcohol/Drug Father Cataract Mother Diabetes Mother Social History Tobacco Use Smoking status: Former Current packs/day: 0.00 Average packs/day: 0.1 packs/day for 40.0 years (4.0 ttl pk-yrs) Types: Cigarettes Start date: 04/28/1977 Quit date: 04/28/2017 Years since quittin.9 Smokeless tobacco: Never Tobacco comments: 3 per day Substance Use Topics Alcohol use: No Drug use: No REVIEW OF SYSTEMS GENERAL: No weight loss- some gain, no malaise or fevers/chills HEENT: Negative for frequent or significant headaches, No changes in hearing or vision. NECK: Negative for lumps, goiter, pain and significant neck swelling RESPIRATORY: + cough, no hemoptysis, wheezing, + dyspnea, + shortness of breath- getting LDCT CARDIOVASCULAR: Negative for chest pain, leg swelling, orthopnea, or palpitations GI: No nausea, vomiting, or diarrhea/constipation. No hematochezia/melena. No heartburn or reflux symptoms. : No history of dysuria, frequency or incontinence MUSCULOSKELETAL: Positive for joint pain or swelling- manageable. SKIN: Negative for lesions, rash, and itching ENDOCRINE: Negative for cold or heat intolerance, polyuria, polydipsia and goiter NEURO: No history of headaches, syncope, paralysis, seizures or tremors MOOD: Negative for depression, anxiety, or suicidal ideation. EXAM: BP 176/94 Pulse 77 Resp 18 Wt 82.5 kg (181 lb 14.1 oz) SpO2 93% BMI 27.25 kg/m? PHYSICAL EXAM: Physical Exam Vitals reviewed. Constitutional: Appearance: Normal appearance. HENT: Head: Normocephalic. Cardiovascular: Rate and Rhythm: Normal rate and regular rhythm. Pulses: Normal pulses. Heart sounds: Normal heart sounds. Pulmonary: Effort: Pulmonary effort is normal. Comments: Very poor air exchange but CTA Abdominal: General: Bowel sounds are normal. Palpations: Abdomen is soft. Musculoskeletal: General: Normal range of motion. Comments: Walks w/o assistive device Skin: General: Skin is warm and dry. Neurological: Mental Status: He is alert and oriented to person, place, and time. Psychiatric: Mood and Affect: Mood normal. Behavior: Behavior normal. LABS: will check labs on Friday ASSESSME (more content not included)... [facility] 04-13-2024 History of Present illness Narrative This is a 73 year old male who presents today with: Patient presents with: 6 Month Exam: Transfer of care HISTORY OF PRESENT ILLNESS: Yariel Holder is a 73 year old male. Patient presents with: 6 Month Exam: Transfer of care Blood pressure is high. In [place] he accidentally doubled up on blood pressure medications and it was much better but still 140's HTN: Patient is compliant with meds Yes Monitors bp at home: Yes Denies side effects: No. Chest pain: No. Dyspnea: Yes. Just restarted Trelegy and doing better Edema: No. Palpitations: No. Syncope: No. Headache: No. Dizziness: No. PAST MEDICAL HISTORY: PAST MEDICAL HISTORY Diagnosis Date HLD (hyperlipidemia) HTN (hypertension) Pneumothorax on left 12/09/2016 small apical associated with trauma multiple rib fractures RSV (acute bronchiolitis due to respiratory syncytial virus) 05/19/2017 admitted through ED with SOB, cough, hypoxia SaO2 82%. CXR hyperinflation. Tx duonebs, IV Solu Medrol. discharged 05/21/17 on prednison taper SVT (supraventricular tachycardia) (HCC) occurred following chest trauma with multiple rib fractures Tobacco use disorder PAST SURGICAL HISTORY Procedure Laterality Date EGD W/O BRSH SPEC VARICIES INJ N/A 02/12/2022 [facility] EXTRACTION ERUPTED TOOTH full dental extraction TONSILLECTOMY PRIMARY/SECONDARY <AGE 12 Tonsillectomy XCAPSL CTRC RMVL INSJ IO LENS PROSTH W/O ECP Right 06/17/[address] Lizama ALLERGIES Bee Sting and Milk MEDICATIONS Current Outpatient Medications Medication Sig albuterol HFA (PROAIR HFA) 90 mcg/actuation inhaler Inhale 2 Puffs as instructed every 6 hours as needed. losartan (COZAAR) 100 mg tablet Take 100 mg by mouth once daily. isosorbide mononitrate ER (IMDUR) 30 mg 24 hr tablet Take 30 mg by mouth once daily. triamcinolone acetonide (KENALOG) 0.1 % cream Apply 1 application to affected area twice daily. TRELEGY ELLIPTA 100-62.5-25 mcg inhalation powder Inhale 1 Puff as instructed once daily. carvedilol (COREG) 6.25 mg tablet Take 1 tablet by mouth twice daily. atorvastatin (LIPITOR) 40 mg tablet Take 40 mg by mouth once daily. nitroglycerin sublingual (NITROQUICK) 0.4 mg SL tablet Dissolve 0.4 mg under the tongue every 5 minutes as needed. EPINEPHrine (EPIPEN 2-SIDNEY) 0.3 mg/0.3 mL auto-injector Inject 0.3 mL intramuscularly as needed. multivitamin tablet Take 1 tablet by mouth once daily. No current facility-administered medications for this visit. FAMILY HISTORY Problem Relation Age of Onset No Ocular Disease Father Alcohol/Drug Father Cataract Mother Diabetes Mother Social History Tobacco Use Smoking status: Former Current packs/day: 0.00 Average packs/day: 0.1 packs/day for 40.0 years (4.0 ttl pk-yrs) Types: Cigarettes Start date: 04/28/1977 Quit date: 04/28/2017 Years since quittin.9 Smokeless tobacco: Never Tobacco comments: 3 per day Substance Use Topics Alcohol use: No Drug use: No REVIEW OF SYSTEMS GENERAL: No weight loss- some gain, no malaise or fevers/chills HEENT: Negative for frequent or significant headaches, No changes in hearing or vision. NECK: Negative for lumps, goiter, pain and significant neck swelling RESPIRATORY: + cough, no hemoptysis, wheezing, + dyspnea, + shortness of breath- getting LDCT CARDIOVASCULAR: Negative for chest pain, leg swelling, orthopnea, or palpitations GI: No nausea, vomiting, or diarrhea/constipation. No hematochezia/melena. No heartburn or reflux symptoms. : No history of dysuria, frequency or incontinence MUSCULOSKELETAL: Positive for joint pain or swelling- manageable. SKIN: Negative for lesions, rash, and itching ENDOCRINE: Negative for cold or heat intolerance, polyuria, polydipsia and goiter NEURO: No history of headaches, syncope, paralysis, seizures or tremors MOOD: Negative for depression, anxiety, or suicidal ideation. EXAM: BP 176/94 Pulse 77 Resp 18 Wt 82.5 kg (181 lb 14.1 oz) SpO2 93% BMI 27.25 kg/m PHYSICAL EXAM: Physical Exam Vitals reviewed. Constitutional: Appearance: Normal appearance. HENT: Head: Normocephalic. Cardiovascular: Rate and Rhythm: Normal rate and regular rhythm. Pulses: Normal pulses. Heart sounds: Normal heart sounds. Pulmonary: Effort: Pulmonary effort is normal. Comments: Very poor air exchange but CTA Abdominal: General: Bowel sounds are normal. Palpations: Abdomen is soft. Musculoskeletal: General: Normal range of motion. Comments: Walks w/o assistive device Skin: General: Skin is warm and dry. Neurological: Mental Status: He is alert and oriented to person, place, and time. Psychiatric: Mood and Affect: Mood normal. Behavior: Behavior normal. LABS: will check labs on Friday ASSESSMENT/PLAN: 1. Essential hypertension - ICD9: 401.9, ICD10: I10 (primary diagnosis) - Controlled - Recommend home blood pressure monitoring, to bring results to next visit - Encouraged sodium restriction, DASH or Mediterranean diet - Recommend regular aerobic exercise - CARVEDILOL 12.5 MG TABLET - AMLODIPINE 5 MG TABLET - DEPRESSION SCREENING - COMPREHENSIVE METABOLIC PANEL - MAGNESIUM 2. Screening for depression - ICD9: V79.0, ICD10: Z13.31 Negative screen - DEPRESSION SCREENING 3. Encounter for screening examination for other mental health and behavioral disorders - ICD9: V79.8, ICD10: Z13.39 Negative screen - DEPRESSION SCREENING - ANXIETY SCREENING 4. Special screening examination for viral disease - ICD9: V73.99, ICD10: Z11.59 Check labs - DEPRESSION SCREENING - HEPATITIS C ANTIBODY IA WITH CONFIRMATION 5. Screening for lipid disorders - ICD9: V77.91, ICD10: Z13.220 Check labs - DEPRESSION SCREENING - LIPID PANEL BASIC 6. Excessive thirst - ICD9: 783.5, ICD10: R63.1 Screen for DM - DEPRESSION SCREENING - HEMOGLOBIN A1C 7. Pure hypercholesterolemia - ICD9: 272.0, ICD10: E78.00 Negative - DEPRESSION SCREENING 8. Pulmonary emphysema, unspecified emphysema type (HCC) - ICD9: 492.8, ICD10: J43.9 Ongoing- Trelegy helps 9. S/P right coronary artery (RCA) stent placement - ICD9: V45.82, ICD10: Z95.5 Stable - COMPLETE BLOOD COUNT AND DIFFERENTIAL - THYROID STIMULATING HORMONE - VITAMIN B12 Discussed treatment plan and patient voices understanding. Patient's questions answered appropriately. Medications and potential side effects were discussed and patient voices understanding. Return to the office as scheduled or as needed for worsening/no improvement. Anh Epps APRN.CNP documented in this encounter [facility] 11-28-2023 Instructions Anh Epps APRN.CNP - 11/28/2023 8:14 AM EDT 1) Azithromycin pack- 2 tablets today, 1 daily for 4 more days 2) Medrol taper- 6 tab today, 5 tomorrow, each day one less until gone 3) Follow up as scheduled in April documented in this encounter [facility] 11-28-2023 Note HNO ID: [id number] Author: ANH EPPS APRN.CNP Service: ? Author Type: Clinical Nurse Specialist Type: Progress Notes Filed: 11/28/2023 08:16 Note Text: This is a 73 year old male who presents today with: Patient presents with: Follow Up: Swollen lymph nodes HISTORY OF PRESENT ILLNESS: Yariel Holder is a 73 year old male. Patient presents with: Follow Up: Swollen lymph nodes Right ear is a little uncomfortable. Gland improved. Sinuses are better. Finished Augmentin last night. Still a little stuffy. No fever or chills. Still a cough, productive with phlegm Throat feels raw. PAST MEDICAL HISTORY: PAST MEDICAL HISTORY Diagnosis Date HLD (hyperlipidemia) HTN (hypertension) Pneumothorax on left 12/09/2016 small apical associated with trauma multiple rib fractures RSV (acute bronchiolitis due to respiratory syncytial virus) 05/19/2017 admitted through ED with SOB, cough, hypoxia SaO2 82%. CXR hyperinflation. Tx duonebs, IV Solu Medrol. discharged 05/21/17 on prednison taper SVT (supraventricular tachycardia) ([facility]) occurred following chest trauma with multiple rib fractures Tobacco use disorder PAST SURGICAL HISTORY Procedure Laterality Date EGD W/O BRSH SPEC VARICIES INJ N/A 02/12/2022 [facility] EXTRACTION ERUPTED TOOTH full dental extraction TONSILLECTOMY PRIMARY/SECONDARY Tonsillectomy XCAPSL CTRC RMVL INSJ IO LENS PROSTH W/O ECP Right 06/17/[address] Lizama ALLERGIES Bee Sting and Milk MEDICATIONS Current Outpatient Medications Medication Sig amoxicillin-clavulanate potassium (AUGMENTIN) 875-125 mg per tablet Take 1 tablet by mouth two times a day for 10 days. albuterol HFA (PROAIR HFA) 90 mcg/actuation inhaler Inhale 2 Puffs as instructed every 6 hours as needed. losartan (COZAAR) 100 mg tablet Take 100 mg by mouth once daily. isosorbide mononitrate ER (IMDUR) 30 mg 24 hr tablet Take 30 mg by mouth once daily. triamcinolone acetonide (KENALOG) 0.1 % cream Apply 1 application to affected area twice daily. TRELEGY ELLIPTA 100-62.5-25 mcg inhalation powder Inhale 1 Puff as instructed once daily. carvedilol (COREG) 6.25 mg tablet Take 1 tablet by mouth twice daily. atorvastatin (LIPITOR) 40 mg tablet Take 40 mg by mouth once daily. nitroglycerin sublingual (NITROQUICK) 0.4 mg SL tablet Dissolve 0.4 mg under the tongue every 5 minutes as needed. EPINEPHrine (EPIPEN 2-SIDNEY) 0.3 mg/0.3 mL auto-injector Inject 0.3 mL intramuscularly as needed. multivitamin tablet Take 1 tablet by mouth once daily. No current facility-administered medications for this visit. FAMILY HISTORY Problem Relation Age of Onset No Ocular Disease Father Alcohol/Drug Father Cataract Mother Diabetes Mother Social History Tobacco Use Smoking status: Former Packs/day: 0.10 Years: 40.00 Additional pack years: 0.00 Total pack years: 4.00 Types: Cigarettes Quit date: 04/28/2017 Years since quittin.5 Smokeless tobacco: Never Tobacco comments: 3 per day Substance Use Topics Alcohol use: No Drug use: No EXAM: BP 146/84 Pulse 66 Resp 16 Wt 81.2 kg (179 lb) SpO2 96% BMI 26.82 kg/m? PHYSICAL EXAM: Physical Exam Vitals reviewed. Constitutional: Appearance: Normal appearance. HENT: Head: Normocephalic. Comments: Right ear canal inflamed, bulging. Right nare inflamed, raw with purulent matter. Oropharnyx with red streaking. Right Ear: There is no impacted cerumen. Left Ear: There is no impacted cerumen. Neck: Comments: Paratracheal lymph node resolved, 1 tiny post-auricular lymph nodes slightly swollen Cardiovascular: Rate and Rhythm: Normal rate and regular rhythm. Heart sounds: No murmur heard. No gallop. Comments: Lat ECG 2021 w/o prolonged QT Pulmonary: Comments: Poor air exchange throughout. Clear after cough Neurological: Mental Status: He is alert. LABS: ASSESSMENT/PLAN: 1. Recurrent acute serous otitis media of right ear - ICD9: 381.01, ICD10: H65.04 (primary diagnosis) - Will begin treatment with Zithromax pack as directed 2. COPD with exacerbation (HCC) - ICD9: 491.21, ICD10: J44.1 Acute flare - Treat with medrol taper and Z sidney Discussed treatment plan and patient voices understanding. Patient's questions answered appropriately. Medications and potential side effects were discussed and patient voices understanding. Return to the office as scheduled or as needed for worsening/no improvement. Discussed treatment plan and patient voices understanding. Patient's questions answered appropriately. Medications and potential side effects were discussed and patient voices understanding. Return to the office as scheduled or as needed for worsening/no improvement. Anh Epps APRN.[facility] 11-28-2023 History of Present illness Narrative This is a 73 year old male who presents today with: Patient presents with: Follow Up: Swollen lymph nodes HISTORY OF PRESENT ILLNESS: Yariel Holder is a 73 year old male. Patient presents with: Follow Up: Swollen lymph nodes Right ear is a little uncomfortable. Gland improved. Sinuses are better. Finished Augmentin last night. Still a little stuffy. No fever or chills. Still a cough, productive with phlegm Throat feels raw. PAST MEDICAL HISTORY: PAST MEDICAL HISTORY Diagnosis Date HLD (hyperlipidemia) HTN (hypertension) Pneumothorax on left 12/09/2016 small apical associated with trauma multiple rib fractures RSV (acute bronchiolitis due to respiratory syncytial virus) 05/19/2017 admitted through ED with SOB, cough, hypoxia SaO2 82%. CXR hyperinflation. Tx duonebs, IV Solu Medrol. discharged 05/21/17 on prednison taper SVT (supraventricular tachycardia) (HCC) occurred following chest trauma with multiple rib fractures Tobacco use disorder PAST SURGICAL HISTORY Procedure Laterality Date EGD W/O BRSH SPEC VARICIES INJ N/A 02/12/2022 [facility] EXTRACTION ERUPTED TOOTH full dental extraction TONSILLECTOMY PRIMARY/SECONDARY <AGE 12 Tonsillectomy XCAPSL CTRC RMVL INSJ IO LENS PROSTH W/O ECP Right 06/17/[address] Lizama ALLERGIES Bee Sting and Milk MEDICATIONS Current Outpatient Medications Medication Sig amoxicillin-clavulanate potassium (AUGMENTIN) 875-125 mg per tablet Take 1 tablet by mouth two times a day for 10 days. albuterol HFA (PROAIR HFA) 90 mcg/actuation inhaler Inhale 2 Puffs as instructed every 6 hours as needed. losartan (COZAAR) 100 mg tablet Take 100 mg by mouth once daily. isosorbide mononitrate ER (IMDUR) 30 mg 24 hr tablet Take 30 mg by mouth once daily. triamcinolone acetonide (KENALOG) 0.1 % cream Apply 1 application to affected area twice daily. TRELEGY ELLIPTA 100-62.5-25 mcg inhalation powder Inhale 1 Puff as instructed once daily. carvedilol (COREG) 6.25 mg tablet Take 1 tablet by mouth twice daily. atorvastatin (LIPITOR) 40 mg tablet Take 40 mg by mouth once daily. nitroglycerin sublingual (NITROQUICK) 0.4 mg SL tablet Dissolve 0.4 mg under the tongue every 5 minutes as needed. EPINEPHrine (EPIPEN 2-SIDNEY) 0.3 mg/0.3 mL auto-injector Inject 0.3 mL intramuscularly as needed. multivitamin tablet Take 1 tablet by mouth once daily. No current facility-administered medications for this visit. FAMILY HISTORY Problem Relation Age of Onset No Ocular Disease Father Alcohol/Drug Father Cataract Mother Diabetes Mother Social History Tobacco Use Smoking status: Former Packs/day: 0.10 Years: 40.00 Additional pack years: 0.00 Total pack years: 4.00 Types: Cigarettes Quit date: 04/28/2017 Years since quittin.5 Smokeless tobacco: Never Tobacco comments: 3 per day Substance Use Topics Alcohol use: No Drug use: No EXAM: BP 146/84 Pulse 66 Resp 16 Wt 81.2 kg (179 lb) SpO2 96% BMI 26.82 kg/m PHYSICAL EXAM: Physical Exam Vitals reviewed. Constitutional: Appearance: Normal appearance. HENT: Head: Normocephalic. Comments: Right ear canal inflamed, bulging. Right nare inflamed, raw with purulent matter. Oropharnyx with red streaking. Right Ear: There is no impacted cerumen. Left Ear: There is no impacted cerumen. Neck: Comments: Paratracheal lymph node resolved, 1 tiny post-auricular lymph nodes slightly swollen Cardiovascular: Rate and Rhythm: Normal rate and regular rhythm. Heart sounds: No murmur heard. No gallop. Comments: Lat ECG 2021 w/o prolonged QT Pulmonary: Comments: Poor air exchange throughout. Clear after cough Neurological: Mental Status: He is alert. LABS: ASSESSMENT/PLAN: 1. Recurrent acute serous otitis media of right ear - ICD9: 381.01, ICD10: H65.04 (primary diagnosis) - Will begin treatment with Zithromax pack as directed 2. COPD with exacerbation (HCC) - ICD9: 491.21, ICD10: J44.1 Acute flare - Treat with medrol taper and Z sidney Discussed treatment plan and patient voices understanding. Patient's questions answered appropriately. Medications and potential side effects were discussed and patient voices understanding. Return to the office as scheduled or as needed for worsening/no improvement. Discussed treatment plan and patient voices understanding. Patient's questions answered appropriately. Medications and potential side effects were discussed and patient voices understanding. Return to the office as scheduled or as needed for worsening/no improvement. Ahn Epps APRN.CNP documented in this encounter [facility] 11-18-2023 Instructions Anh Epps APRN.CNP - 11/18/2023 1:43 PM EDT 1) Augmentin 875 mg 2 x day for 10 days 2) Use saline nasal spray while on antibiotic 3) Follow up in 10 days documented in this encounter [facility] 11-18-2023 Note HNO ID: [id number] Author: ANH EPPS APRN.HEAD NECK SURGEON Service: ? Author Type: Clinical Nurse Specialist Type: Progress Notes Filed: 11/18/2023 13:44 Note Text: This is a 73 year old male who presents today with: Patient presents with: Mass: Lump on right side of neck for the last 3-4 days. Painful to touch HISTORY OF PRESENT ILLNESS: Yariel Holder is a 73 year old male. Patient presents with: Mass: Lump on right side of neck for the last 3-4 days. Painful to touch Was eating peanuts on Friday, got one stuck under plate. He got that out. When he woke up on Friday, he noticed a big lump under right mandible. Hurts up into ear and down to lump. No fever or chills. No ear pain. PAST MEDICAL HISTORY: PAST MEDICAL HISTORY Diagnosis Date HLD (hyperlipidemia) HTN (hypertension) Pneumothorax on left 12/09/2016 small apical associated with trauma multiple rib fractures RSV (acute bronchiolitis due to respiratory syncytial virus) 05/19/2017 admitted through ED with SOB, cough, hypoxia SaO2 82%. CXR hyperinflation. Tx duonebs, IV Solu Medrol. discharged 05/21/17 on prednison taper SVT (supraventricular tachycardia) (HCC) occurred following chest trauma with multiple rib fractures Tobacco use disorder PAST SURGICAL HISTORY Procedure Laterality Date EGD W/O BRSH SPEC VARICIES INJ N/A 02/12/2022 [facility] EXTRACTION ERUPTED TOOTH full dental extraction TONSILLECTOMY PRIMARY/SECONDARY Tonsillectomy XCAPSL CTRC RMVL INSJ IO LENS PROSTH W/O ECP Right 06/17/[address] Lizama ALLERGIES Bee Sting and Milk MEDICATIONS Current Outpatient Medications Medication Sig albuterol HFA (PROAIR HFA) 90 mcg/actuation inhaler Inhale 2 Puffs as instructed every 6 hours as needed. losartan (COZAAR) 100 mg tablet Take 100 mg by mouth once daily. isosorbide mononitrate ER (IMDUR) 30 mg 24 hr tablet Take 30 mg by mouth once daily. TRELEGY ELLIPTA 100-62.5-25 mcg inhalation powder Inhale 1 Puff as instructed once daily. carvedilol (COREG) 6.25 mg tablet Take 1 tablet by mouth twice daily. atorvastatin (LIPITOR) 40 mg tablet Take 40 mg by mouth once daily. nitroglycerin sublingual (NITROQUICK) 0.4 mg SL tablet Dissolve 0.4 mg under the tongue every 5 minutes as needed. EPINEPHrine (EPIPEN 2-SIDNEY) 0.3 mg/0.3 mL auto-injector Inject 0.3 mL intramuscularly as needed. multivitamin tablet Take 1 tablet by mouth once daily. triamcinolone acetonide (KENALOG) 0.1 % cream Apply 1 application to affected area twice daily. No current facility-administered medications for this visit. FAMILY HISTORY Problem Relation Age of Onset No Ocular Disease Father Alcohol/Drug Father Cataract Mother Diabetes Mother Social History Tobacco Use Smoking status: Former Packs/day: 0.10 Years: 40.00 Additional pack years: 0.00 Total pack years: 4.00 Types: Cigarettes Quit date: 04/28/2017 Years since quittin.5 Smokeless tobacco: Never Tobacco comments: 3 per day Substance Use Topics Alcohol use: No Drug use: No EXAM: BP 148/82 Pulse 83 Resp 16 Wt 80.7 kg (178 lb) SpO2 93% BMI 26.67 kg/m? PHYSICAL EXAM: Physical Exam Vitals reviewed. Constitutional: Appearance: Normal appearance. HENT: Head: Normocephalic. Comments: Right ear canal red, tympanic membrane opaque Right Ear: There is no impacted cerumen. Left Ear: Tympanic membrane, ear canal and external ear normal. There is no impacted cerumen. Nose: Rhinorrhea present. No congestion. Comments: Right nare eroded and raw Mouth/Throat: Mouth: Mucous membranes are dry. Neck: Comments: Palpable nodule under right mid mandible Cardiovascular: Rate and Rhythm: Regular rhythm. Heart sounds: Murmur heard. No gallop. Comments: Soft NICOLE @ sternal border and apex Pulmonary: Breath sounds: Normal breath sounds. Skin: General: Skin is warm and dry. Neurological: Mental Status: He is alert. LABS: reviewed labs from July ASSESSMENT/PLAN: 1. Swollen lymph nodes - ICD9: 785.6, ICD10: R59.9 (primary diagnosis) Likely infection - AMOXICILLIN 875 MG-POTASSIUM CLAVULANATE 125 MG TABLET for 10 days - Follow up in 10 days 2. Acute recurrent maxillary sinusitis - ICD9: 461.0, ICD10: J01.01 - Will begin treatment with Augmentin 875 mg PO BID for 10 days - Use saline nasal spray while on antibiotic Discussed treatment plan and patient voices understanding. Patient's questions answered appropriately. Medications and potential side effects were discussed and patient voices understanding. Return to the office as scheduled or as needed for worsening/no improvement. Anh Epps APRN.[facility] 11-18-2023 History of Present illness Narrative This is a 73 year old male who presents today with: Patient presents with: Mass: Lump on right side of neck for the last 3-4 days. Painful to touch HISTORY OF PRESENT ILLNESS: Yariel Holder is a 73 year old male. Patient presents with: Mass: Lump on right side of neck for the last 3-4 days. Painful to touch Was eating peanuts on Friday, got one stuck under plate. He got that out. When he woke up on Friday, he noticed a big lump under right mandible. Hurts up into ear and down to lump. No fever or chills. No ear pain. PAST MEDICAL HISTORY: PAST MEDICAL HISTORY Diagnosis Date HLD (hyperlipidemia) HTN (hypertension) Pneumothorax on left 12/09/2016 small apical associated with trauma multiple rib fractures RSV (acute bronchiolitis due to respiratory syncytial virus) 05/19/2017 admitted through ED with SOB, cough, hypoxia SaO2 82%. CXR hyperinflation. Tx duonebs, IV Solu Medrol. discharged 05/21/17 on prednison taper SVT (supraventricular tachycardia) (HCC) occurred following chest trauma with multiple rib fractures Tobacco use disorder PAST SURGICAL HISTORY Procedure Laterality Date EGD W/O BRSH SPEC VARICIES INJ N/A 02/12/2022 [facility] EXTRACTION ERUPTED TOOTH full dental extraction TONSILLECTOMY PRIMARY/SECONDARY <AGE 12 Tonsillectomy XCAPSL CTRC RMVL INSJ IO LENS PROSTH W/O ECP Right 06/17/[address] Lizama ALLERGIES Bee Sting and Milk MEDICATIONS Current Outpatient Medications Medication Sig albuterol HFA (PROAIR HFA) 90 mcg/actuation inhaler Inhale 2 Puffs as instructed every 6 hours as needed. losartan (COZAAR) 100 mg tablet Take 100 mg by mouth once daily. isosorbide mononitrate ER (IMDUR) 30 mg 24 hr tablet Take 30 mg by mouth once daily. TRELEGY ELLIPTA 100-62.5-25 mcg inhalation powder Inhale 1 Puff as instructed once daily. carvedilol (COREG) 6.25 mg tablet Take 1 tablet by mouth twice daily. atorvastatin (LIPITOR) 40 mg tablet Take 40 mg by mouth once daily. nitroglycerin sublingual (NITROQUICK) 0.4 mg SL tablet Dissolve 0.4 mg under the tongue every 5 minutes as needed. EPINEPHrine (EPIPEN 2-SIDNEY) 0.3 mg/0.3 mL auto-injector Inject 0.3 mL intramuscularly as needed. multivitamin tablet Take 1 tablet by mouth once daily. triamcinolone acetonide (KENALOG) 0.1 % cream Apply 1 application to affected area twice daily. No current facility-administered medications for this visit. FAMILY HISTORY Problem Relation Age of Onset No Ocular Disease Father Alcohol/Drug Father Cataract Mother Diabetes Mother Social History Tobacco Use Smoking status: Former Packs/day: 0.10 Years: 40.00 Additional pack years: 0.00 Total pack years: 4.00 Types: Cigarettes Quit date: 04/28/2017 Years since quittin.5 Smokeless tobacco: Never Tobacco comments: 3 per day Substance Use Topics Alcohol use: No Drug use: No EXAM: BP 148/82 Pulse 83 Resp 16 Wt 80.7 kg (178 lb) SpO2 93% BMI 26.67 kg/m PHYSICAL EXAM: Physical Exam Vitals reviewed. Constitutional: Appearance: Normal appearance. HENT: Head: Normocephalic. Comments: Right ear canal red, tympanic membrane opaque Right Ear: There is no impacted cerumen. Left Ear: Tympanic membrane, ear canal and external ear normal. There is no impacted cerumen. Nose: Rhinorrhea present. No congestion. Comments: Right nare eroded and raw Mouth/Throat: Mouth: Mucous membranes are dry. Neck: Comments: Palpable nodule under right mid mandible Cardiovascular: Rate and Rhythm: Regular rhythm. Heart sounds: Murmur heard. No gallop. Comments: Soft NICOLE @ sternal border and apex Pulmonary: Breath sounds: Normal breath sounds. Skin: General: Skin is warm and dry. Neurological: Mental Status: He is alert. LABS: reviewed labs from July ASSESSMENT/PLAN: 1. Swollen lymph nodes - ICD9: 785.6, ICD10: R59.9 (primary diagnosis) Likely infection - AMOXICILLIN 875 MG-POTASSIUM CLAVULANATE 125 MG TABLET for 10 days - Follow up in 10 days 2. Acute recurrent maxillary sinusitis - ICD9: 461.0, ICD10: J01.01 - Will begin treatment with Augmentin 875 mg PO BID for 10 days - Use saline nasal spray while on antibiotic Discussed treatment plan and patient voices understanding. Patient's questions answered appropriately. Medications and potential side effects were discussed and patient voices understanding. Return to the office as scheduled or as needed for worsening/no improvement. Anh Epps APRN.[employer] NECK SURGEON documented in this encounter [facility] 10-07-2023 History of Present illness Narrative 73 year old male with c/o 6 month follow up S/p right coronary artery (rca) stent placement (primary encounter diagnosis) Essential hypertension Mixed hyperlipidemia Cardiovascular interval hx: 04/10/2023 US screening for AAA: negative 10/29/2022 Last visit Amber Lei [employer] REPRESENTATIVE: Stable, ordered stress test for follow-up. 11/11/2022 exercise myocardial perfusion stress test at moderate workload Thomas protocol, 7 METS, maximum heart rate 1 2685% maximum predicted. No ST or T wave changes suggesting ischemia. SPECT analysis, normal uptake without areas of reversibility to suggest ischemia. 01/27/2022 [facility] CTA head and neck: with contrast related to neurodeficit, acute stroke suspected. Impression: 1. Normal [place] of [place] without demonstrated aneurysm or hemodynamically significant stenosis 2. Mild atherosclerotic stenosis of bilateral origins of the internal carotid arteries Current meds: Atorvastatin 40 mg daily Carvedilol 6.25 mg twice daily Isosorbide mononitrate ER 30 mg Losartan 100 mg daily? Nitroglycerin 0.4 mg every 5 minutes as needed Use of NTG: No, thinks rx may be > 2 years old Chest pain, arm, jaw pain, neck, or upper back pain suggestive of angina: Yes. One episode yesterday with midsternal radiating to right arm and a little in left shoulder tinny taste in mouth. Went to ER but pain resolved and he went back home. Has had no issues since. SOB: Not much Dyspnea with exertion: comes and goes with weather changes, heat/ humidity orthopnea: No Cough : Yes, mostly from lung disease racing or irregular heartbeats: No palpitations: No syncopal sx: No, lightheaded if coughs hard or stand quickly Headache: No Unexplainable fatigue No Leg swelling: No Nausea: No diaphoresis: No Heartburn: none Claudication: No, but feels like legs get weak with walking long distances Smoking: Since quit working started smoking again 1/3-1/4 pack per day Following Low cholesterol, high fiber diet? Yes If on statin: muscle aches? No If on statin: GI sx or diarrhea? No Additional history Last 3 Encounter BP Readings: Date: BP: 10/07/2023 148/84 04/07/2023 128/70 09/30/2022 136/88 Last 2 Encounter Wt Readings: Date: Wt: 10/07/2023 80.7 kg (178 lb) 04/07/2023 80.7 kg (178 lb) Lab review: 08/07/2023 BMP external source [facility]: WNL except anion gap is low at 4. 08/07/2023 external source [facility]: CBC WNL Bronchiectasis without complication (hcc) Chronic obstructive pulmonary disease, unspecified copd type (hcc) Other emphysema (hcc) Screening for lung cancer Corporate Controller: Bette Hernandez PA-C. Interval history: 02/11/[address] scan [facility]: Mild paraseptal emphysema, primarily in the upper lobes. 01/04/2022 low-dose lung cancer screening program initiated: Lung rads 1, no nodules,Small retrograde hiatal hernia Current medications: Albuterol 90 mcg per actuation 2 puffs every 6 hours Trelegy Ellipta 100-60 2.5-25 mcg inhalation daily Worsening shortness of breath: yes with humid weather, inhalers don't seem to work. Cough: multiple times daily, a little. Wheezing: Yes. Smoking: Yes. Compliant with medications: Yes. Using rescue inhaler: 0-2 times a day. 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 Better if leaves wallet out of left Back comes and goes. HISTORIES FAMILY HISTORY Problem Relation Age of Onset No Ocular Disease Father Alcohol/Drug Father Cataract Mother Diabetes Mother PAST MEDICAL HISTORY Diagnosis Date HLD (hyperlipidemia) HTN (hypertension) Pneumothorax on left 12/09/2016 small apical associated with trauma multiple rib fractures RSV (acute bronchiolitis due to respiratory syncytial virus) 05/19/2017 admitted through ED with SOB, cough, hypoxia SaO2 82%. CXR hyperinflation. Tx duonebs, IV Solu Medrol. discharged 05/21/17 on prednison taper SVT (supraventricular tachycardia) occurred following chest trauma with multiple rib fractures Tobacco use disorder PAST SURGICAL HISTORY Procedure Laterality Date EGD W/O BRSH SPEC VARICIES INJ N/A 02/12/2022 [facility] EXTRACTION ERUPTED TOOTH full dental extraction TONSILLECTOMY PRIMARY/SECONDARY <AGE 12 Tonsillectomy XCAPSL CTRC RMVL INSJ IO LENS PROSTH W/O ECP Right 06/17/[address] 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 1 Each 0 losartan (COZAAR) 100 mg tablet Take 100 mg by mouth once daily. (Patient not taking: Reported on 05/08/2022) isosorbide mononitrate ER (IMDUR) 30 mg 24 hr tablet Take 30 mg by mouth once daily. triamcinolone acetonide (KENALOG) 0.1 % cream Apply 1 application to affected area twice daily. 30 g 2 TRELEGY ELLIPTA 100-62.5-25 mcg inhalation powder Inhale 1 Puff as instructed once daily. carvedilol (COREG) 6.25 mg tablet Take 1 tablet by mouth twice daily. atorvastatin (LIPITOR) 40 mg tablet Take 40 mg by mouth once daily. nitroglycerin sublingual (NITROQUICK) 0.4 mg SL tablet Dissolve 0.4 mg under the tongue every 5 minutes as needed. EPINEPHrine (EPIPEN 2-SIDNEY) 0.3 mg/0.3 mL auto-injector Inject 0.3 mL intramuscularly as needed. 1 Each 0 multivitamin tablet Take 1 tablet by mouth once daily. No current facility-administered medications for this visit. Spirometry Never done Hepatitis C Screening Never done DTaP,Tdap,Td Vaccine(1 - Tdap) Never done Alpha-1 Antitrypsin Deficiency Screening Never done Advance Directive Discussion due on 05/12/2023 Behavioral Health Screening Never done Lipid Screening due on 07/07/2023 EXAM: BP 158/90 Pulse 72 Resp 16 Wt 80.7 kg (178 lb) SpO2 94% BMI 26.67 kg/m Last 14 BP Last 14 Encounter BP Readings: Date: BP: 10/07/2023 148/84 04/07/2023 128/70 09/30/2022 136/88 05/08/2022 124/70 04/01/2022 128/76 02/18/2022 120/64 02/04/2022 130/78 10/26/2021 108/62 10/19/2021 137/76 05/23/2020 132/84 11/19/2019 104/80 05/31/2019 122/82 04/23/2019 100/66 04/06/2019 118/70 Pleasant adult man in no acute distress. Alert and oriented all spheres. Normal affect and cognition. Speech normal. No deficits to learning or comprehension. Skin warm, dry, pink to lips and nailbeds. Normal turgor. Respirations regular and unlabored. HEENT: NCAT. Mild right lid sag just at lateral canthus. No scleral icterus or conjunctival injection. TM's clear. Nose and oropharynx free from injection or lesion. Oral membranes moist and pink. No cervical lymph nodes. Thyroid non-tender, no masses, or enlargement. Carotids pulses 2+/4+ without bruits. No JVD with HOB at 30 degrees. Chest is normal shape. Lungs are clear to all beatty with good air exchange through out. HRRR without murmur or gallop. No lifts, heaves, or rubs. Extrem: no clubbing or cyanosis. Edema: none. Extremities are warm and pink with prompt capillary refill. ASSESSMENT/PLAN: 1. S/P right coronary artery (RCA) stent placement - ICD9: V45.82, ICD10: Z95.5 (primary diagnosis) Follows [place] [facility], stable, no anginal equivalents. Some concern for possible claudication 2. Essential hypertension - ICD9: 401.9, ICD10: I10 - Moderately controlled - Continue current medications - Recommend home blood pressure monitoring, to bring results to next visit - Encouraged sodium restriction, DASH or Mediterranean diet - Recommend regular aerobic exercise 3. Mixed hyperlipidemia - ICD9: 272.2, ICD10: E78.2 - Controlled - Continue current medications - Counseled on healthy diet and regular exercise 4. Bronchiectasis without complication (HCC) - ICD9: 494.0, ICD10: J47.9 5. Chronic obstructive pulmonary disease, unspecified COPD type (HCC) - ICD9: 496, ICD10: J44.9 6. Other emphysema (HCC) - ICD9: 492.8, ICD10: J43.8 Stable overall. Worsening r/t humidity and heat. 7. 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 9. Trochanteric bursitis of left hip - ICD9: 726.5, ICD10: M70.62 Bothers him most after sitting, has improved. Some of this note may have been copied and pasted for the purpose of history context and comparison. All questions listed were asked and adjusted for changes in prior data. Silverio Ponce PA-C documented in this encounter [facility] 04-11-2023 Miscellaneous Notes Pt called and notified, verbalized understanding. Asia Prieto Ma Please let him know it was WNL Yves Unger PA-C documented in this encounter [facility] 04-10-2023 History of Present illness Narrative Radiology Service Progress Note PATIENT NAME: Yariel Holder DATE OF SERVICE: April 10, 2023 TIME: 9:12 AM PATIENT IDENTITY VERIFICATION COMPLETED USING TWO (2) IDENTIFIERS: Name and Date of confirmed by patient verbally. FALL SCREENING: Has the patient had 2 falls in the last year or 1 fall with injury or currently using an Ambulatory Assistive Device (Walker, Cane, Wheelchair, Crutches, etc.)? 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 Will place in medical records for poultry picking machine tender. Pt has appt on 10/07/23. Labs ordered on 04/05/23 to complete. Update pt once handicap placard is ready for poultry picking machine tender or if wanting mailed to home. Asia Prieto Ma Patient is requesting to renew handicap placard, please advise if he needs an appointment or any paperwork. documented in this encounter [facility] 04-07-2023 Instructions Silverio Ponce PA-C - 04/07/2023 8:31 AM EST [email or web address] documented in this encounter [facility] 04-07-2023 History of Present illness Narrative 72 year old male with c/o here for follow up. Yariel Holder is a 72 year old male here for a Medicare wellness visit. Medicare Health Risk Assessment General Health Very good Exercise: Minutes/Day 120 min Exercise: Days/Week 4 days Alcohol: Daily Use Never Alcohol: Drinks/Day Patient does not drink Alcohol: 6 or more drinks Never Feel off balance No Concerns: Teeth/Dentures Yes Concerns: Sexual function No Troubled by feelings None of the above Frequency: Eating healthy diet Nearly every day ADLs requiring help None of the above Safety precautions in home/vehicle Yes Smoke, vape, chews tobacco Yes, but I'm not ready to quit Difficulty hearing No Difficulty seeing No Current Providers Specialists: I have reviewed specialist-related care of the patient in the medical record. Medical/Family history review Reviewed and updated problem list, medical/surgical/family/social history, medications, and allergies. Opioid use review Opioid Medications (last 90 days) Some values may be hidden. Unless noted otherwise, only the newest values recorded on each date are displayed. Opioid Medications No data to display. Depression screening Depression Screening PHQ-2 Score 04/07/2023 0 Depression screening tool completed and reviewed. Based on score and interview, patient is not at risk for depression. Screening tool discussed with patient, and I recommended no further intervention at this time. Cognitive screening Mini Cog Score: 5 Cognitive screening reviewed and no further action needed (score 3-5) Functional Observation Was the patient's timed Up & Go test unsteady or ? 12 seconds? No Advance Care Planning Surrogate decision maker and/or advance care plan documented Measurements BP 128/70 Pulse 73 Temp (Src) 97.1 (Left Tympanic) Resp 20 Ht 5' 8.504 (1.74m) Wt 178 lb (80.7kg) SpO2 92% BMI 26.67 kg/(m^2). Additional screenings: follows with collection coordinator Assessment/Plan S/p right coronary artery (rca) stent placement (primary encounter diagnosis) Essential hypertension Mixed hyperlipidemia Cardiovascular interval hx: no issues Lore previously Dr. 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 11/11/2022 exercise myocardial perfusion stress test at moderate workload Thomas protocol, 7 METS, maximum heart rate 1 2685% maximum predicted. No ST or T wave changes suggesting ischemia. SPECT analysis, normal uptake without areas of reversibility to suggest ischemia. Current meds: Losartan 100mg daily Isorsorbide ER 30mg daily Carvedilol 6.25mg twice a day Atorvastatin 40mg daily HS Use of NTG: No Chest pain, arm, jaw pain, neck, or upper back pain suggestive of angina: No. SOB: No Dyspnea with exertion: No orthopnea: No Cough : chronic cough racing or irregular heartbeats: No palpitations: No syncopal sx: No Headache: No Unexplainable fatigue No Leg swelling: No Nausea: Had some constipation, took a body cleanse and prostate pills OTC which. diaphoresis: No Heartburn: No unless eats spicy hot food. Claudication: No Smoking: Yes, goes for days without, down to 1 pack a week, 2 a day usually Following Low cholesterol, high fiber diet? Yes If on statin: muscle aches? No If on statin: GI sx or diarrhea? No Additional history none. Lab review: Component Latest Ref Rng & Units 07/07/2018 09/22/2018 10/26/2021 03/01/2022 WBC 3.70 - 11.00 k/uL 8.53 8.23 8.69 RBC 4.20 - 6.00 m/uL 5.03 5.04 3.40 (L) Hemoglobin 13.0 - 17.0 g/dL 15.3 15.5 10.0 (L) Hematocrit 39.0 - 51.0 % 46.1 46.6 31.6 (L) MCV 80.0 - 100.0 fL 91.7 92.5 92.9 MCH 26.0 - 34.0 pg 30.4 30.8 29.4 MCHC 30.5 - 36.0 g/dL 33.2 33.3 31.6 RDW-CV 11.5 - 15.0 % 14.6 14.4 14.7 Platelet Count 150 - 400 k/uL 217 112 (L) 247 MPV 9.0 - 12.7 fL 11.8 12.5 10.8 Neut% % 63.3 Abs Neut (ANC) 1.45 - 7.50 k/uL 5.40 Lymph% % 26.1 Abs Lymph 1.00 - 4.00 k/uL 2.23 Cobb% % 8.6 Abs Cobb <0.87 k/uL 0.73 Eosin% % 1.2 Abs Eosin <0.46 k/uL 0.10 Baso% % 0.8 Abs Baso <0.11 k/uL 0.07 Nucleated Reds 0 /100 WBC 0.0 Absolute nRBC <0.01 k/uL <0.01 <0.01 <0.01 Diff Type Auto Diff Protein, Total 6.3 - 8.0 g/dL 6.8 Albumin 3.9 - 4.9 g/dL 3.7 (L) Calcium 8.5 - 10.2 mg/dL 9.5 9.2 9.0 Bilirubin, Total 0.2 - 1.3 mg/dL 0.7 Alkaline Phosphatase 38 - 113 U/L 98 AST 14 - 40 U/L 17 ALT 10 - 54 U/L 12 Glucose 74 - 99 mg/dL 102 (H) 112 (H) 116 (H) BUN 9 - 24 mg/dL 7 (L) 11 13 Creatinine 0.73 - 1.22 mg/dL 0.93 1.14 1.02 Sodium 136 - 144 mmol/L 140 133 (L) 139 Potassium 3.7 - 5.1 mmol/L 4.1 3.5 (L) 3.8 Chloride 97 - 105 mmol/L 101 100 104 CO2 22 - 30 mmol/L 21 (L) 22 26 Anion Gap 9 - 18 mmol/L 18 11 9 eGFR >=60 mL/min/1.73m 69 79 eGFR- >60 eGFR-All Other Races . >60 Total Cholesterol, Nonfasting <200 mg/dL 179 Triglycerides, Nonfasting <150 mg/dL 127 HDL Cholesterol, Nonfasting >39 mg/dL 62 LDL Cholesterol, Nonfasting <100 mg/dL 92 Non HDL Cholesterol, Nonfasting <130 mg/dL 117 VLDL Cholesterol, Nonfasting <30 mg/dL 25 Total Chol/HDL Ratio, Nonfasting <5.10 mg/dL 2.89 LDL/HDL Ratio, Nonfasting <2.54 mg/dL 1.48 Magnesium 1.7 - 2.3 mg/dL 2.2 Bronchiectasis without complication (hcc) Chronic obstructive pulmonary disease, unspecified copd type (hcc) Corporate Controller: [facility] Bette Damon. Interval history: no changes. Current medications: Albuterol MDI 2 puffs q6h prn Trellegy ellipta 100-62.5-25mg 1 puff daily Worsening shortness of breath: No. Cough: Yes. Wheezing: Yes mild, intermittently Smoking: Yes. 1PPD Compliant with medications: Yes. Using rescue inhaler: hardly ever. 02/11/2023 CT low dose lung cancer screening: emphysema upper lobes, no other significant findings. Hx of silvia-hare syndrome Hx of gastric ulcer Hiatal hernia Gastro: Friend [facility] Admit [facility] 02/11-02/13-2021 Silvia hare tear, acute GIB, gastric ulcer due to H. Pylori 02/11/2022 EGD Current medication: None Current symptoms: none unless eats something really spicy- avoids completely Last Mg level if on PPI chronically: 11/05/2021 2.2. Heartburn is controlled: Yes. Dysphagia: No. Bloody or black stools: No. Bowel changes: No. HISTORIES FAMILY HISTORY Problem Relation Age of Onset No Ocular Disease Father Alcohol/Drug Father Cataract Mother Diabetes Mother PAST MEDICAL HISTORY Diagnosis Date HLD (hyperlipidemia) HTN (hypertension) Pneumothorax on left 12/09/2016 small apical associated with trauma multiple rib fractures RSV (acute bronchiolitis due to respiratory syncytial virus) 05/19/2017 admitted through ED with SOB, cough, hypoxia SaO2 82%. CXR hyperinflation. Tx duonebs, IV Solu Medrol. discharged 05/21/17 on prednison taper SVT (supraventricular tachycardia) ([facility]) occurred following chest trauma with multiple rib fractures Tobacco use disorder PAST SURGICAL HISTORY Procedure Laterality Date EGD W/O BRSH SPEC VARICIES INJ N/A 02/12/2022 [facility] EXTRACTION ERUPTED TOOTH full dental extraction TONSILLECTOMY PRIMARY/SECONDARY <AGE 12 Tonsillectomy XCAPSL CTRC RMVL INSJ IO LENS PROSTH W/O ECP Right 06/17/[address] 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 albuterol HFA (PROAIR HFA) 90 mcg/actuation inhaler Inhale 2 Puffs as instructed every 6 hours as needed. 1 Each 0 losartan (COZAAR) 100 mg tablet Take 100 mg by mouth once daily. (Patient not taking: No sig reported) isosorbide mononitrate ER (IMDUR) 30 mg 24 hr tablet Take 30 mg by mouth once daily. triamcinolone acetonide (KENALOG) 0.1 % cream Apply 1 application to affected area twice daily. 30 g 2 meloxicam (MOBIC) 15 mg tablet Take 1 tablet by mouth once daily. With food. (Patient not taking: No sig reported) 30 tablet 1 TRELEGY ELLIPTA 100-62.5-25 mcg inhalation powder Inhale 1 Puff as instructed once daily. carvedilol (COREG) 6.25 mg tablet Take 1 tablet by mouth twice daily. atorvastatin (LIPITOR) 40 mg tablet Take 40 mg by mouth once daily. nitroglycerin sublingual (NITROQUICK) 0.4 mg SL tablet Dissolve 0.4 mg under the tongue every 5 minutes as needed. VIT A/C/E AC/ZNOX/CUPRIC OXIDE (EYE VITAMIN AND MINERALS ORAL) Take by mouth once daily. EPINEPHrine (EPIPEN 2-SIDNEY) 0.3 mg/0.3 mL auto-injector Inject 0.3 mL intramuscularly as needed. 1 Each 0 multivitamin tablet Take 1 tablet by mouth once daily. No current facility-administered medications for this visit. Abdominal Aortic Aneurysm Screening Never done Covid-19 Vaccine(1) Never done Pneumococcal Vaccine: 65+(1 - PCV) Never done Spirometry Never done Hepatitis C Screening Never done BP Controlled (<130/80) Never done DTaP,Tdap,Td Vaccine(1 - Tdap) Never done Alpha-1 Antitrypsin Deficiency Screening Never done Shingrix Vaccine(1 of 2) Never done RSV Vaccine(1 - 1-dose 60+ series) Never done Depression Assessment Never done Influenza Vaccine(1) due on 01/10/2023 REVIEW OF SYSTEMS PAIN ASSESSMENT: persistent pain left clavicle r/t ORIFclavicle and rib fracture GENERAL: No weight loss, malaise or fevers HEENT: Negative for frequent or significant headaches, No changes in hearing or vision, no nose bleeds or other nasal problems NECK: Negative for lumps, goiter, pain and significant neck swelling, chronic neck pain, was seeing chiropractor. Doing stretching which keeps it not too bad RESPIRATORY: Negative for cough, hemoptysis, wheezing, COPD, dyspnea or shortness of breath, SOB if walks a long weighs or moving heavy boxes, gets winded (works at [employer] at night CARDIOVASCULAR: Negative for chest pain, leg swelling, hypertension, CHF or palpitations GI: No nausea, vomiting, or diarrhea and bowels work well, eats nuts which helps, takes pills occasionally. : Negative, No history of dysuria, frequency or incontinence MUSCULOSKELETAL: Negative for joint pain or swelling, back pain or muscle pain SKIN: Negative for lesions, rash, and itching,Negative for sleep disturbance, mood disorder and recent psychosocial stressors bruising from blood thinners. PSYCH: Negative for sleep disturbance, mood disorder and recent psychosocial stressors, grief HEMATOLOGY/LYMPHOLOGY: Negative for prolonged bleeding, bruising easily or swollen nodes, outside of blood thinners. ENDOCRINE: Negative for cold or heat intolerance, polyuria, polydipsia and goiter NEURO: No history of headaches, syncope, paralysis, seizures or tremors EXAM: BP 128/70 Pulse 73 Temp 36.2 C (97.1 F) (Left Tympanic) Resp 20 Ht 174 cm (5' 8.5) Wt 80.7 kg (178 lb) SpO2 92% BMI 26.67 kg/m Pleasant well appearing man in no acute distress. Alert and oriented all spheres. Normal affect and cognition. Speech normal. No deficits to learning or comprehension. Skin warm, dry, pink to lips and nailbeds. Normal turgor. Respirations regular and unlabored. HEENT: NCAT. No scleral icterus or conjunctival injection. TM's clear. Nose and oropharynx free from injection or lesion. Oral membranes moist and pink. No cervical lymph nodes. Thyroid non-tender, no masses, or enlargement. Carotids pulses 2+/4+ without bruits. No JVD with HOB at 30 degrees. Chest is normal shape. Lungs are clear to all beatty with good air exchange through out. HRRR without murmur or gallop. No lifts, heaves, or rubs. Extrem: no clubbing or cyanosis. Edema: none. Extremities are warm and pink with prompt capillary refill. ASSESSMENT/PLAN: 1. Bronchiectasis without complication (HCC) - ICD9: 494.0, ICD10: J47.9 (primary diagnosis) 2. Chronic obstructive pulmonary disease, unspecified COPD type (HCC) - ICD9: 496, ICD10: J44.9 Stable, follows with [place] pulmonology. - CBC + DIFF 3. Essential hypertension - ICD9: 401.9, ICD10: I10 - Controlled - Continue current medications - Recommend home blood pressure monitoring, to bring results to next visit - Encouraged sodium restriction, DASH or Mediterranean diet - Recommend regular aerobic exercise - CBC + DIFF - COMP METABOLIC PANEL 4. Mixed hyperlipidemia - ICD9: 272.2, ICD10: E78.2 - Controlled - Continue current medications - Counseled on healthy diet and regular exercise - COMP METABOLIC PANEL - LIPID PANEL BASIC 5. S/P right coronary artery (RCA) stent placement - ICD9: V45.82, ICD10: Z95.5 Stable, recent nuclear stress no ischemia. - CBC + DIFF - COMP METABOLIC PANEL - LIPID PANEL BASIC 6. Screening for abdominal aortic aneurysm - ICD9: V81.2, ICD10: Z13.6 - US SCREENING FOR AAA 7. Encounter for immunization - ICD9: V03.89, ICD10: Z23 - TDAP PRINTED PHARMACY INSTRUCTIONS 8. Special screening examination for viral disease - ICD9: V73.99, ICD10: Z11.59 - HEPATITIS C ANTIBODY IA WITH CONFIRMATION 9. Encounter for Medicare annual wellness exam - ICD9: V70.0, ICD10: Z00.00 - Counseled on healthy diet and regular exercise - Smoking cessation encouraged; discussed risks to health and quitting strategies. Patient is ready to quit - Depression screening tool completed and reviewed with patient. Based on score and interview, patient is not at risk for depression and recommended no further intervention at this time. - Patient was counseled [id number] by myself (the billing provider) for the following immunizations and vaccine components, including side effects: TdaP. Patient consents for immunization and understands risks and benefits. A VIS sheet on each immunization was given to the patient. - Follow up for annual exam in one year Some of this note may have been copied and pasted for the purpose of history context and comparison and has been adjusted for changes in prior data. Silverio Ponce PA-C documented in this encounter [facility] 05-26-2022 History of Present illness Narrative Episode Visit Count: 4 Therapist That Will Accept/Oversee The Plan Of Care: Nick Houston Start of Care Date: 04/09/22 Onset Date: 02/07/22 Plan of Care Certification Date: 04/09/22 Next Certification Due Date: 06/09/22 [facility]ER[facility] PHYSICAL THERAPY PROGRESS REPORT PLAN OF CARE UPDATE: Assessment: Yariel Holder demonstrates moderate improvement in neck pain and turning, and resolution of hip pain. He hasprogressed toward goals. Patient continues to present with impairments in ADL's, flexibility, overall function, posture, range of motion, symptom management, and tissue tenderness that interfere with heavy exertion;physical activities;lifting;working;sleepin g . Current prognosis is Good due to: current objective clinical presentation;positive past response to therapy;within-session changes;good support system/ coping skills . He will benefit from continued skilled therapy services to meet the updated goals for this plan of care as noted below. Goals updated on 05/24/2022. Goals for Episode of Care: created on 04/09/22 through 06/09/22 [place] in home exercise program. Partially met Patient will decrease pain rating by 2 points to meet minimal clinical important difference for numeric pain rating scale. Partially met Patient will increase active ROM of L hip and neck to WNL to allow pt to to improve postural alignment and to improve performance of ADLs. Partially met Patient will demonstrate increase in L hip strength to 5/5 during manual muscle testing in order to improve function for basic self-care tasks, home management tasks, leisure / recreation skills, light functional tasks, moderate to heavy functional tasks, prior functional tasks, and work tasks. Met Perform sitting, lying, rising from chair with decreased report of symptoms/pain in 6-8 weeks. Met Perform lying on the effected side and without pain. Met Patient Goals: stop the pain Planned Interventions, Frequency, and Duration: 1 visit, 6 weeks Total Number of Visits Planned: 1 Patient to be seen for Therapeutic exercise (28613);Neuromuscular re-education (32034);Manual therapy (92597);Therapeutic activities (32716);Self-snf management (21473);Patient/Family/Caregiver Education;Body Mechanics Training PLAN FOR NEXT VISIT: Continue manual to neck, promote self manual at home SUBJECTIVE: Patient Reason for Visit: Pt has seen positive neck improvements, but the changes are temporary. He usualy gets a week or two of relief before pain and limited motion came back. His hip has remained good with no pain or issues. Functional Limitations: heavy exertion;physical activities;lifting;working;sleepin g Pain: Pain Pain Level: 0 Pain Location: Hip - Left Frequency: Continuous Pain Level 2: 5 Pain Location 2: Neck - Left Description 2: Tightness;Sore;Aching Frequency 2: Continuous PROMIS Scales T-scores: mean of general population = 50. 5 points is clinically meaningfully difference Percentiles provide an indication of how the patient's score ranks in relation to the general population. Higher percentile rankings indicate better function/quality of life. 50th percentile is the average of the general population and indicates half of respondents had a worse score. T-scores: mean of general population = 50. 5 points is clinically meaningfully difference Percentiles provide an indication of how the patient's score ranks in relation to the general population. Higher percentile rankings indicate better function/quality of life. 50th percentile is the average of the general population and indicates half of respondents had a worse score. OBJECTIVE MEASURES WITH LEVEL OF FUNCTION: Cervical Spine ROM Cervical Flexion AROM: Normal Cervical Extension AROM: Normal Cervical Side-Bend Right AROM: Normal Cervical Side-Bend Left AROM: Moderate limitation Cervical Rotation Right AROM: Normal Cervical Rotation Left AROM: Moderate limitation LE Strength L LE Strength: 5/5 TREATMENT: Manual Therapy: 1: STM and CFM to L SCM, upper trap and cervical paraspinals 2: Upper trap stripping on L 3: Manual cervical traction x5 min Skilled Intervention: Manual skills to improve joint mobility, ROM, and decrease pain. Utilized anatomy knowledge of the therapist, and assessment of patient's response to intervention. Billing Manual TherapyTreatment Minutes: 40 Total Treatment Time Minutes (timed/untimed): 40 Nick Houston PT documented in this encounter [facility] 05-08-2022 History of Present illness Narrative This note was created using blur [employer]. Osiel Holder is a 71 year old male. HPI Presents with the chief complaint of cough, congestion, shortness of breath over the past week. He was around somebody sick at work last week. No home COVID test done. He does not want to do a COVID or flu test. He does have a history of COPD and is on Trelegy. Denies chest pain. No diarrhea or vomiting. He had a GI bleed a few weeks ago he states from taking steroids. Review of Systems Constitutional: Negative. HENT: Positive for congestion, sinus pressure and sore throat. Respiratory: Positive for cough and shortness of breath. Negative for wheezing. Cardiovascular: Negative. Gastrointestinal: Negative. Genitourinary: Negative. Musculoskeletal: Negative. Neurological: Positive for headaches. All other systems reviewed and are negative. PAST MEDICAL HISTORY Diagnosis Date HLD (hyperlipidemia) HTN (hypertension) Pneumothorax on left 12/09/2016 small apical associated with trauma multiple rib fractures RSV (acute bronchiolitis due to respiratory syncytial virus) 05/19/2017 admitted through ED with SOB, cough, hypoxia SaO2 82%. CXR hyperinflation. Tx duonebs, IV Solu Medrol. discharged 05/21/17 on prednison taper SVT (supraventricular tachycardia) ([facility]) occurred following chest trauma with multiple rib fractures Tobacco use disorder Current Outpatient Medications Medication Sig Dispense Refill sucralfate (CARAFATE) 1 gram tablet TAKE 1 TABLET BY MOUTH EVERY 6 (SIX) hours isosorbide mononitrate ER (IMDUR) 30 mg 24 hr tablet Take 30 mg by mouth once daily. triamcinolone acetonide (KENALOG) 0.1 % cream Apply 1 application to affected area twice daily. 30 g 2 TRELEGY ELLIPTA 100-62.5-25 mcg inhalation powder Inhale 1 Puff as instructed once daily. albuterol HFA (VENTOLIN HFA) 90 mcg/actuation inhaler Inhale 2 Puffs as instructed every 4 hours as needed for Wheezing/Shortness of Breath. 1 Inhaler 1 nitroglycerin sublingual (NITROQUICK) 0.4 mg SL tablet Dissolve 0.4 mg under the tongue every 5 minutes as needed. VIT A/C/E AC/ZNOX/CUPRIC OXIDE (EYE VITAMIN AND MINERALS ORAL) Take by mouth once daily. EPINEPHrine (EPIPEN 2-SIDNEY) 0.3 mg/0.3 mL auto-injector Inject 0.3 mL intramuscularly as needed. 1 Each 0 multivitamin tablet Take 1 tablet by mouth once daily. doxycycline (VIBRA-TABS) 100 mg tablet Take 1 tablet by mouth twice daily for 7 days. 14 tablet 0 fluticasone (FLONASE) 50 mcg/actuation nasal spray Use 2 Sprays in each nostril once daily. Rinse mouth after use. 1 Each 0 benzonatate (TESSALON PERLES) 100 mg capsule Take 2 capsules by mouth three times daily as needed. 30 capsule 0 guaiFENesin (MUCINEX) 600 mg 12 hr tablet Take 2 tablets by mouth twice daily for 5 days. 20 tablet 0 albuterol HFA (PROAIR HFA) 90 mcg/actuation inhaler Inhale 2 Puffs as instructed every 6 hours as needed. [address] (PROTONIX) 40 mg tablet Take 1 tablet by mouth twice daily. (Patient not taking: Reported on 05/08/2022) losartan (COZAAR) 100 mg tablet Take 100 mg by mouth once daily. (Patient not taking: Reported on 05/08/2022) meloxicam (MOBIC) 15 mg tablet Take 1 tablet by mouth once daily. With food. (Patient not taking: Reported on 05/08/2022) 30 tablet 1 gabapentin (NEURONTIN) 100 mg capsule Take 1 capsule by mouth three times daily for 90 days. (Patient not taking: Reported on 05/08/2022) 90 capsule 2 phenazopyridine (PYRIDIUM) 200 mg tablet Take 1 tablet by mouth three times daily as needed. (Patient not taking: Reported on 05/08/2022) 6 tablet 0 carvedilol (COREG) 6.25 mg tablet Take 1 tablet by mouth twice daily. (Patient not taking: Reported on 05/08/2022) aspirin, enteric coated (ASPIRIN, ENTERIC COATED) 81 mg EC tablet Take 81 mg by mouth once daily. (Patient not taking: Reported on 05/08/2022) atorvastatin (LIPITOR) 40 mg tablet Take 40 mg by mouth once daily. (Patient not taking: Reported on 05/08/2022) lisinopril (ZESTRIL, PRINIVIL) 10 mg tablet Take 10 mg by mouth once daily. (Patient not taking: Reported on 05/08/2022) No current facility-administered medications for this visit. PAST SURGICAL HISTORY Procedure Laterality Date EGD W/O BRSH SPEC VARICIES INJ N/A 02/12/2022 [facility] EXTRACTION ERUPTED TOOTH full dental extraction TONSILLECTOMY PRIMARY/SECONDARY <AGE 12 Tonsillectomy XCAPSL CTRC RMVL INSJ IO LENS PROSTH W/O ECP Right 06/17/[address] Lizama FAMILY HISTORY Problem Relation Age of Onset No Ocular Disease Father Alcohol/Drug Father Cataract Mother Diabetes Mother Social History Tobacco Use Smoking status: Former Packs/day: 0.10 Years: 40.00 Pack years: 4.00 Types: Cigarettes Quit date: 04/28/2017 Years since quittin.0 Smokeless tobacco: Never Tobacco comments: 3 per day Substance Use Topics Alcohol use: No Drug use: No Objective BP 124/70 Pulse 88 Temp 36.7 C (98 F) Resp 16 Wt 75.3 kg (166 lb) SpO2 95% BMI 23.48 kg/m Physical Exam Vitals reviewed. Constitutional: Appearance: Normal appearance. HENT: Head: Normocephalic and atraumatic. Right Ear: Tympanic membrane, ear canal and external ear normal. Left Ear: Tympanic membrane, ear canal and external ear normal. Nose: Congestion present. Right Sinus: Maxillary sinus tenderness present. Left Sinus: Maxillary sinus tenderness present. Mouth/Throat: Mouth: Mucous membranes are moist. Pharynx: Oropharynx is clear. Cardiovascular: Rate and Rhythm: Normal rate and regular rhythm. Heart sounds: Normal heart sounds. Pulmonary: Effort: Pulmonary effort is normal. Breath sounds: Normal breath sounds. Comments: Hash cough Skin: General: Skin is warm and dry. Neurological: Mental Status: He is alert. Assessment and Plan ASSESSMENT/PLAN: 1. Sinobronchitis - ICD9: 473.9, 490, ICD10: J32.9, J40 - Will begin treatment with Doxycycline - Supportive care with plenty of fluids, rest, and analgesia prn. - Follow up in 3-5 days if symptoms persist or worsen. Denise Kahn PA-C documented in this encounter [facility] 04-30-2022 History of Present illness Narrative Episode Visit Count: 3 Therapist That Will Accept/Oversee The Plan Of Care: Nick Houston Start of Care Date: 04/09/22 Onset Date: 02/07/22 Plan of Care Certification Date: 04/09/22 Next Certification Due Date: 06/09/22 REHABILITATION AND SPORTS THERAPY PHYSICAL THERAPY TREATMENT NOTE ASSESSMENT: Yariel Holder tolerated the session with decreased symptoms. He demonstrated improvements in neck pain and range of motion. The patient will continue to benefit from ongoing skilled physical therapy to progress toward set goals. PLAN FOR NEXT VISIT: Continue manual, HI SUBJECTIVE: Patient Reason for Visit: Pt doing well, had no pain for ~ a week, but thinks he pushed his towel exercise too far. Left side is tight and a little painful at end range. Pain: Pain Pain Level: 1 Pain Location: Hip - Left Description: Dull;Sore Frequency: Intermittent Additional Pain Information : Location 2 Pain Level 2: 4 Pain Location 2: Neck - Left Description 2: Tightness;Sore Frequency 2: Continuous OBJECTIVE MEASURES WITH LEVEL OF FUNCTION: Cervical Spine ROM Cervical Flexion AROM: Normal Cervical Extension AROM: Normal Cervical Side-Bend Right AROM: Normal Cervical Side-Bend Left AROM: Moderate limitation Cervical Rotation Right AROM: Minimal limitation Cervical Rotation Left AROM: Minimal limitation TREATMENT: Therapeutic Exercise: 1: *DNF 10x10 sec holds 2: *Decker's palsy exercises Skilled Intervention: Patient was educated in proper exercise technique and purpose for exercises. Skilled judgment was provided in selection of appropriate interventions. Provided written instruction for home exercise program to facilitate proper performance and compliance. Correct performance of therapeutic exercises was facilitated with verbal, visual, and tactile cuing. Manual Therapy: 1: STM and CFM to L upper trap and cervical paraspinals 2: Upper trap stripping on L 3: Manual cervical traction x5 min Skilled Intervention: Manual skills to improve joint mobility, ROM, and decrease pain. Utilized anatomy knowledge of the therapist, and assessment of patient's response to intervention. Billing Therapeutic Exercise Treatment Minutes: 5 Manual TherapyTreatment Minutes: 25 Total Treatment Time Minutes (timed/untimed): 30 Nick Houston PT documented in this encounter [facility] 04-23-2022 History of Present illness Narrative Episode Visit Count: 2 Therapist That Will Accept/Oversee The Plan Of Care: Nick Houston Start of Care Date: 04/09/22 Onset Date: 02/07/22 Plan of Care Certification Date: 04/09/22 Next Certification Due Date: 06/09/22 REHABILITATION AND SPORTS THERAPY PHYSICAL THERAPY TREATMENT NOTE ASSESSMENT: Yariel Holder tolerated the session with decreased symptoms. He demonstrated improvements in neck range of motion post session, with only minimal limitations at worse. The patient will continue to benefit from ongoing skilled physical therapy to progress toward set goals. PLAN FOR NEXT VISIT: Work on neck and hip as needed SUBJECTIVE: Patient Reason for Visit: L hip felt great until he went on a long drive to [facility] 2 days in a row. This brought the pain back over the weekend, but doing better this morning after doing the stretches. Wants to look at the neck today. Difficulty turning to the left Pain: Pain Pain Level: 1 Pain Location: Hip - Left Description: Dull;Sore Frequency: Intermittent Additional Pain Information : Location 2 Pain Level 2: 6 Pain Location 2: Neck - Left Description 2: Tightness;Sore Frequency 2: Continuous OBJECTIVE MEASURES WITH LEVEL OF FUNCTION: Cervical Spine ROM Cervical ROM : Limitation AROM Cervical Flexion AROM: Normal Cervical Extension AROM: Normal Cervical Side-Bend Right AROM: Minimal limitation Cervical Side-Bend Left AROM: Major limitation Cervical Rotation Right AROM: Minimal limitation Cervical Rotation Left AROM: Major limitation TREATMENT: Therapeutic Exercise: 1: *Upper trap stretch 3x30 sec/side 2: *Cervical rotation stretch with towel 3x30 sec/side Skilled Intervention: Patient was educated in proper exercise technique and purpose for exercises. Skilled judgment was provided in selection of appropriate interventions. Provided written instruction for home exercise program to facilitate proper performance and compliance. Correct performance of therapeutic exercises was facilitated with verbal, visual, and tactile cuing. Manual Therapy: 1: STM and CFM to L upper trap and cervical paraspinals 2: Upper trap stripping on L 3: Manual cervical traction x5 min 4: Cervical side glides x10/side C5-7 Skilled Intervention: Manual skills to improve joint mobility, ROM, and decrease pain. Utilized anatomy knowledge of the therapist, and assessment of patient's response to intervention. Billing Therapeutic Exercise Treatment Minutes: 3 Manual TherapyTreatment Minutes: 25 Total Treatment Time Minutes (timed/untimed): 28 Nick Houston PT documented in this encounter [facility] 04-09-2022 History of Present illness Narrative Episode Visit Count: 1 Therapist That Will Accept/Oversee The Plan Of Care: Nick Houston Start of Care Date: 04/09/22 Onset Date: 02/07/22 Plan of Care Certification Date: 04/09/22 Next Certification Due Date: 06/09/22 Patient Identified by Name and Date of : Yes REHABILITATION AND SPORTS THERAPY PHYSICAL THERAPY EVALUATION PLAN OF CARE: Assessment: Yariel Holder presents with chief complaint of L hip pain and neck pain that interferes with sitting;rising from a chair;sleeping . He presents with impairments in ADL's, overall function, posture, range of motion, strength , symptom management, and tissue tenderness. Prognosis for therapy is Fair due to: clinical presentation;multiple co- morbidities;limited tolerance to activity;occupational demands . He will benefit from skilled therapy services to meet the goals established for this plan of care as noted below. Goals for Episode of Care: created on 04/09/22 through 06/09/22 [place] in home exercise program. Patient will decrease pain rating by 2 points to meet minimal clinical important difference for numeric pain rating scale. Patient will increase active ROM of L hip and neck to WNL to allow pt to to improve postural alignment and to improve performance of ADLs. Patient will demonstrate increase in L hip strength to 5/5 during manual muscle testing in order to improve function for basic self-care tasks, home management tasks, leisure / recreation skills, light functional tasks, moderate to heavy functional tasks, prior functional tasks, and work tasks. Perform sitting, lying, rising from chair with decreased report of symptoms/pain in 6-8 weeks. Perform lying on the effected side and without pain. Patient Goals: stop the pain Planned Interventions, Frequency, and Duration: Current Frequency: 1x/week Duration: 6 weeks Total Number of Visits Planned: 6 Planned Treatment Interventions: Therapeutic exercise (84132);Neuromuscular re-education (61546);Manual therapy (06690);Therapeutic activities (35340);Self-snf management (98372);Patient/Family/Caregiver Education;Body Mechanics Training PLAN FOR NEXT VISIT: Eval neck, progress hip exercises per tolerance Patient demonstrates good understanding of plan of care and treatment. The above goals and plan of care were discussed and agreed upon by patient/family. SUBJECTIVE: Yariel Holder is a 71 year old male seen today for L hip pain for a few months. Notes insidious onset. Feels better when he is up and active, worsen when he is stationary, lying on the L side, or the first few steps when walking from sitting. At end of session pt also notes that he has neck pain he would like to address. he has pain and difficulty with turning Patient Goals: stop the pain Functional Limitations: sitting;rising from a chair;sleeping Prior Level of Function: Independent without limitations Intake Information: Prescription present Pain: Pain Pain Level: 7 Pain Location: Hip - Left;Thigh - Left Description: Sharp;Aching;Sore Frequency: Intermittent Post Treatment Pain Post Treatment Pain Level: No Change PROMIS Scales T-scores: mean of general population = 50. 5 points is clinically meaningfully difference Percentiles provide an indication of how the patient's score ranks in relation to the general population. Higher percentile rankings indicate better function/quality of life. 50th percentile is the average of the general population and indicates half of respondents had a worse score. T-scores: mean of general population = 50. 5 points is clinically meaningfully difference Percentiles provide an indication of how the patient's score ranks in relation to the general population. Higher percentile rankings indicate better function/quality of life. 50th percentile is the average of the general population and indicates half of respondents had a worse score. OBJECTIVE MEASURES WITH LEVEL OF FUNCTION: LE AROM L LE AROM: moderate limitation LE Strength R LE Strength: 5/5 L LE Strength: 4/5 grossly in L hip Special Tests - Hip and Spine Hip and Spine Special Tests: Lizz's Test Lizz's Test: Left Positive Education: Education Learning/educational needs: Home exercise program;Plan of Care;Changes in Plan of Care;Body Mechanics TREATMENT: PT Treatment Interventions: Therapeutic Exercise Evaluation Therapeutic Exercise: 1: *Knee to opposite chest stretch 3x30 sec on L 2: *Supine figure 4 piriformis on L 3x30 sec 3: *SL hip abduction 3x10 4: *SL hip abduction series x10 each 5: *Clamshells with GTB 3x10 on L Skilled Intervention: Patient was educated in proper exercise technique and purpose for exercises. Skilled judgment was provided in selection of appropriate interventions. Provided written instruction for home exercise program to facilitate proper performance and compliance. Correct performance of therapeutic exercises was facilitated with verbal, visual, and tactile cuing. Billing * Evaluation Low Complexity: 1 Unit Therapeutic Exercise Treatment Minutes: 15 Total Treatment Time Minutes (timed/untimed): 35 Nick Houston PT documented in this encounter [facility] 04-05-2022 Miscellaneous Notes Patient returned call and given provider's message below and patient verbalized understanding. Ramana Garcia RN Left VM for pt to call PCP office for xray result below. Florence Garcia RN COPIED: Silverio Ponce PA-C 04/05/2022 8:01 AM EST Please advise hip XR was normal ThanksYves PA-C documented in this encounter [facility] 04-01-2022 History of Present illness Narrative 71 year old male with c/o 6 week follow up GIB r/t Silvia Hare tear, H. Pylori on bx, anemia. Stomach is doing well. No pain, heartburn, acid reflux. Stools are daily, brown, no evidence of blood, black or tarry stools. 02/11/2022: Hemoglobin 8.8, hematocrit 26.9, platelet 161, CBC otherwise normal. Component Latest Ref Rng & Units 03/01/2022 Glucose 74 - 99 mg/dL 116 (H) BUN 9 - 24 mg/dL 13 Creatinine 0.73 - 1.22 mg/dL 1.02 Sodium 136 - 144 mmol/L 139 Potassium 3.7 - 5.1 mmol/L 3.8 Chloride 97 - 105 mmol/L 104 CO2 22 - 30 mmol/L 26 Anion Gap 9 - 18 mmol/L 9 Calcium 8.5 - 10.2 mg/dL 9.0 eGFR- eGFR-All Other Races . WBC 3.70 - 11.00 k/uL 8.69 RBC 4.20 - 6.00 m/uL 3.40 (L) Hemoglobin 13.0 - 17.0 g/dL 10.0 (L) Hematocrit 39.0 - 51.0 % 31.6 (L) MCV 80.0 - 100.0 fL 92.9 MCH 26.0 - 34.0 pg 29.4 MCHC 30.5 - 36.0 g/dL 31.6 RDW-CV 11.5 - 15.0 % 14.7 Platelet Count 150 - 400 k/uL 247 MPV 9.0 - 12.7 fL 10.8 Absolute nRBC <0.01 k/uL <0.01 eGFR >=60 mL/min/1.73m 79 Left hip pain Started months ago, gradually worsened. Describes pain as a sharp pain, like when you pull a muscle. Begins at his hip and extends down his lateral thigh. Once he begins moving, the pain improves after a few steps. Is unable to sleep on his left side from the pain. Has tried lidocaine patches which has helped. Reports other hip feels fine. Denies paresthesias, loss of strength. No incontinence, or fever/chills. HISTORIES FAMILY HISTORY Problem Relation Age of Onset No Ocular Disease Father Alcohol/Drug Father Cataract Mother Diabetes Mother PAST MEDICAL HISTORY Diagnosis Date HLD (hyperlipidemia) HTN (hypertension) Pneumothorax on left 12/09/2016 small apical associated with trauma multiple rib fractures RSV (acute bronchiolitis due to respiratory syncytial virus) 05/19/2017 admitted through ED with SOB, cough, hypoxia SaO2 82%. CXR hyperinflation. Tx duonebs, IV Solu Medrol. discharged 05/21/17 on prednison taper SVT (supraventricular tachycardia) ([facility]) occurred following chest trauma with multiple rib fractures Tobacco use disorder PAST SURGICAL HISTORY Procedure Laterality Date EGD W/O BRSH SPEC VARICIES INJ N/A 02/12/2022 [facility] EXTRACTION ERUPTED TOOTH full dental extraction TONSILLECTOMY PRIMARY/SECONDARY <AGE 12 Tonsillectomy XCAPSL CTRC RMVL INSJ IO LENS PROSTH W/O ECP Right 06/17/[address] 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 losartan (COZAAR) 100 mg tablet Take 100 mg by mouth once daily. isosorbide mononitrate ER (IMDUR) 30 mg 24 hr tablet Take 30 mg by mouth once daily. triamcinolone acetonide (KENALOG) 0.1 % cream Apply 1 application to affected area twice daily. 30 g 2 meloxicam (MOBIC) 15 mg tablet Take 1 tablet by mouth once daily. With food. 30 tablet 1 gabapentin (NEURONTIN) 100 mg capsule Take 1 capsule by mouth three times daily for 90 days. 90 capsule 2 TRELEGY ELLIPTA 100-62.5-25 mcg inhalation powder Inhale 1 Puff as instructed once daily. phenazopyridine (PYRIDIUM) 200 mg tablet Take 1 tablet by mouth three times daily as needed. 6 tablet 0 carvedilol (COREG) 6.25 mg tablet Take 1 tablet by mouth twice daily. albuterol HFA (VENTOLIN HFA) 90 mcg/actuation inhaler Inhale 2 Puffs as instructed every 4 hours as needed for Wheezing/Shortness of Breath. 1 Inhaler 1 aspirin, enteric coated (ASPIRIN, ENTERIC COATED) 81 mg EC tablet Take 81 mg by mouth once daily. atorvastatin (LIPITOR) 40 mg tablet Take 40 mg by mouth once daily. lisinopril (ZESTRIL, PRINIVIL) 10 mg tablet Take 10 mg by mouth once daily. nitroglycerin sublingual (NITROQUICK) 0.4 mg SL tablet Dissolve 0.4 mg under the tongue every 5 minutes as needed. VIT A/C/E AC/ZNOX/CUPRIC OXIDE (EYE VITAMIN AND MINERALS ORAL) Take by mouth once daily. EPINEPHrine (EPIPEN 2-SIDNEY) 0.3 mg/0.3 mL auto-injector Inject 0.3 mL intramuscularly as needed. 1 Each 0 multivitamin tablet Take 1 tablet by mouth once daily. No current facility-administered medications for this visit. ABDOMINAL AORTIC ANEURYSM SCREENING Never done SPIROMETRY Never done HEPATITIS C SCREENING Never done ALPHA-1 ANTITRYPSIN DEFICIENCY SCREENING Never done DEPRESSION ASSESSMENT Never done REVIEW OF SYSTEMS GENERAL: No weight loss, malaise or fevers HEENT: Negative for frequent or significant headaches, No changes in hearing or vision, no nose bleeds or other nasal problems NECK: Negative for lumps, goiter, pain and significant neck swelling RESPIRATORY: Wheezing, Shortness of breath CARDIOVASCULAR: Negative for chest pain, leg swelling, hypertension, CHF or palpitations GI: No nausea, vomiting, or diarrhea MUSCULOSKELETAL: Negative for joint pain or swelling, back pain or muscle pain and joint pain or swelling Hip pain, see HPI EXAM: BP 128/76 Pulse 82 Resp 18 Wt 77.1 kg (170 lb) SpO2 97% BMI 24.05 kg/m Pleasant 71 male in no acute distress. Alert and oriented all spheres. Normal affect and cognition. Speech normal. No deficits to learning or comprehension. Skin warm, dry, pink to lips and nailbeds. Normal turgor. Respirations regular and unlabored. HEENT: NCAT. No scleral icterus or conjunctival injection. TM's clear. Nose and oropharynx free from injection or lesion. Oral membranes moist and pink. No cervical lymph nodes. Thyroid non-tender, no masses, or enlargement. Carotids pulses 2+/4+ without bruits. No JVD with HOB at 30 degrees. Chest is normal shape. Lungs are clear to all beatty with good air exchange through out. HRRR without murmur or gallop. No lifts, heaves, or rubs. Abdomen: active bowel sounds throughout, soft, nontender, no masses or organomegaly. No CVAT. Extrem: no clubbing or cyanosis. Edema: none. Extremities are warm and pink with prompt capillary refill. Hip: + tenderness over left greater trochanter with increased pain on internal rotation and adduction. No significant tenderness ITB. Some of this note may have been copied and pasted for the purpose of history context and comparison. ASSESSMENT/PLAN: 1. Left hip pain - ICD9: 719.45, ICD10: M25.552 (primary diagnosis) Discussed options. No interested in cortisone injection. Trial Tylenol Arthritis - XR HIP GENERAL 3V PELV/AP/LAT LEFT - CONSULT TO PHYSICAL THERAPY 2. 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 States he feels he is still slowly improving. 4. 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 Just out of hospital with large GI bleed. Urgent care would be fine Thanks, Yves Ponce PA-C Patient calling said he has sore throat and fever 100.1 and body aches.Advised to go to ill express care and patient said I do not have COVID, advised for evaluation. Patient said I can not come in today, might go tomorrow. documented in this encounter [facility] 03-04-2022 Miscellaneous Notes Patient informed and verbalized understanding. No questions at this time. Ni Medrano ----- Message from Silverio Ponce PA-C sent at 03/02/2022 10:03 AM EDT ----- Please advise labs are looking better- HGB up to 10.0, renal is normal. ThanksYves PA-C documented in this encounter [facility] 02-22-2022 Miscellaneous Notes Completed and given to patient. Yves Ponce PA-C Patient has been identified by name and date of : Yes Type of form: return to work release Form received via: Walk in When form is completed, contact patient. Form has been forwarded to: Provider's desk. Provider name: Yves Esposito LPN documented in this encounter [facility] 02-18-2022 Instructions Silverio Ponce PA-C - 02/18/2022 2:35 PM EDT Blood work in 2 weeks F/u in 6 week. Soft bland diet. documented in this encounter [facility] 02-18-2022 History of Present illness Narrative 71 year old male for a hospital follow up. Facility: [facility] Admission date 02/11/2022 Discharge date 02/13/2022 Preadmission details: Pt called into the office on 02/11/22 with c/o of black emesis and black stringy diarrhea, like it was old blood. Pt c/o of fever and headache two days prior and felt dizzy/faint. Pt advised to go to local ED to be evaluated. 02/11/2022 presented with [facility] ER with complaint of concern for GI bleeding. 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 Started vomiting after eating some fast food, dark blood in his emesis, couple episodes with this. They started noticing dark maroon stools the following day. Vital signs 97.3-97-16-109/61-100% RA. 02/11/2022: Hemoglobin 8.8, hematocrit 26.9, platelet 161, CBC otherwise normal. Chemistry panel abnormals: NA 146H-CL 112 H-total protein 5.6, albumin 2.7. Otherwise chemistries normal. Blood type a positive, antibody screen negative. Pt went to [facility] Ed on 02/11/22. CBC on 02/11/22 showed Hgb 8.8. Hospital course: Patient was admitted, gastro and neurology consulted. Hydrated with IV fluids. Aspirin was held. Orthostatics were positive with blood pressure medications also held. Admission assessment and plan: 1. GI bleed acute: Acute blood loss anemia due to GI bleed, currently tolerating p.o. Day of discharge hemoglobin 8.1, prior hemoglobin 13 on 01/27/2022. On IV PPI, transition to oral. 2. Coronary artery disease status post stents: Aspirin on hold, continued statin. 3. Hypertension: BP meds held due to orthostatic hypotension. 4. COPD: On breathing treatments with bronchodilators 5. Hyperlipidemia: Statin continue 6. DVT prophylaxis with SCDs. 02/11/2022 GI consult: Dr. Antonio Moralez EGD with Dr. Moralez on 02/12/22: A 5 mm bleeding Silvia-Hare tear with stigmata of recent bleeding was found. Coagulation for n using heater probe was successful. Estimated blood loss was minimal. A medium-sized hiatal hernia was present. One oozing cratered gastric ulcer with a visible vessel was found in the gastric antrum. The lesion was 6 mm in largest dimension. Coagulation for hemostasis using heater probe was successful. Biopsies were taken with a cold forceps for histology. Verification of patient identification for the specimen was done. Estimated blood loss was minimal. The first portion of the duodenum was normal. Impression: - Silvia-Hare tear. Treated with a heater probe. - Medium-sized hiatal hernia. - Oozing gastric ulcer with a visible vessel. Treated with a heater probe. Biopsied. - Normal first portion of the duodenum. Recommendation: - Discharge patient to home. - Resume regular diet today. - No aspirin, ibuprofen, naproxen, or other non-steroidal anti-inflammatory drugs for 4 weeks. - Await pathology results. - Repeat upper endoscopy in 3 months to check healing. - Use sucralfate tablets 1 gram PO QID for 4 weeks. - Use Protonix (pantoprazole) 40 mg PO BID for 8 weeks. 02/12/2022 Path report: A. Gastric ulcer, biopsy: Positive for a few Helicobacter pylori organisms. Lab summary: 02/12/2022 PT 13.6-INR, PTT 34.4 ALP-52-ALT 17 02/13/2022 CBC: WBC 6.7-RBC 2.62-HBG 8.5-HCT 25.7, macrocytic indices, RDW SD 51.0-PLT 152, normal differential. 02/13/2022 chemistry profile: GLU 96-BUN 10-CRE 0.78-TP 4.9L-ALB 2.4L-globulin 2.5-CA 8.0L-AST 12 L-total bili 0.40-direct bili 0.13-MG 2.1- calcium 8.1L Medication reconciliation: New medications: Sulcal fate 1 g every 6 hours #112/0 Pantopraz[address] twice daily #112/0 Discontinue medications: Aspirin 81 mg daily Meloxicam 15 mg daily as needed Continue medications: Albuterol sulfate 90 MCG per actuation 2 puffs every 4 hours as needed, 8.5 g/5 Trelegy Ellipta 100-62 point 5-25 MCG blister with device: 1 inhalation daily Triamcinolone 1% cream topical twice daily to affected areas twice a day Gabapentin 100 mg p.o. 3 times daily Centrum Silver 1 tablet daily NTG 0.4 mg daily 5 minutes x3 as needed for chest pain Atorvastatin 40 mg daily #90/30 Carvedilol 6.25 mg twice a day #180/3 Losartan 100 mg p.o. daily #90/3 Current status: Feeling much better, no nausea, heartburn, abdominal discomfort. Continues feeling somewhat weaker although strength is progressive. Up and around pretty much is normal. Appetite is good: Asking what kind of diet he should follow. Has been avoiding anything super spicy or complex. No nausea or vomiting. Bowels are resume normal pattern: Brown 1 to 2/day, no black or tarry stools, no rectal bleeding. Denies any chest pain, shortness of breath, palpitations, lightheadedness. HISTORIES FAMILY HISTORY Problem Relation Age of Onset No Ocular Disease Father Alcohol/Drug Father Cataract Mother Diabetes Mother PAST MEDICAL HISTORY Diagnosis Date HLD (hyperlipidemia) HTN (hypertension) Pneumothorax on left 12/09/2016 small apical associated with trauma multiple rib fractures RSV (acute bronchiolitis due to respiratory syncytial virus) 05/19/2017 admitted through ED with SOB, cough, hypoxia SaO2 82%. CXR hyperinflation. Tx duonebs, IV Solu Medrol. discharged 05/21/17 on prednison taper SVT (supraventricular tachycardia) (HCC) occurred following chest trauma with multiple rib fractures Tobacco use disorder PAST SURGICAL HISTORY Procedure Laterality Date EXTRACTION ERUPTED TOOTH full dental extraction TONSILLECTOMY PRIMARY/SECONDARY <AGE 12 Tonsillectomy XCAPSL CTRC RMVL INSJ IO LENS PROSTH W/O ECP Right 06/17/[address] 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 30 g 2 meloxicam (MOBIC) 15 mg tablet Take 1 tablet by mouth once daily. With food. 30 tablet 1 gabapentin (NEURONTIN) 100 mg capsule Take 1 capsule by mouth three times daily for 90 days. 90 capsule 2 TRELEGY ELLIPTA 100-62.5-25 mcg inhalation powder Inhale 1 Puff as instructed once daily. phenazopyridine (PYRIDIUM) 200 mg tablet Take 1 tablet by mouth three times daily as needed. 6 tablet 0 carvedilol (COREG) 6.25 mg tablet Take 1 tablet by mouth twice daily. albuterol HFA (VENTOLIN HFA) 90 mcg/actuation inhaler Inhale 2 Puffs as instructed every 4 hours as needed for Wheezing/Shortness of Breath. 1 Inhaler 1 aspirin, enteric coated (ASPIRIN, ENTERIC COATED) 81 mg EC tablet Take 81 mg by mouth once daily. atorvastatin (LIPITOR) 40 mg tablet Take 40 mg by mouth once daily. lisinopril (ZESTRIL, PRINIVIL) 10 mg tablet Take 10 mg by mouth once daily. nitroglycerin sublingual (NITROQUICK) 0.4 mg SL tablet Dissolve 0.4 mg under the tongue every 5 minutes as needed. VIT A/C/E AC/ZNOX/CUPRIC OXIDE (EYE VITAMIN AND MINERALS ORAL) Take by mouth once daily. EPINEPHrine (EPIPEN 2-SIDNEY) 0.3 mg/0.3 mL auto-injector Inject 0.3 mL intramuscularly as needed. 1 Each 0 multivitamin tablet Take 1 tablet by mouth once daily. No current facility-administered medications for this visit. ABDOMINAL AORTIC ANEURYSM SCREENING Never done SPIROMETRY Never done HEPATITIS C SCREENING Never done BP CONTROLLED (<130/80) Never done ALPHA-1 ANTITRYPSIN DEFICIENCY SCREENING Never done DEPRESSION ASSESSMENT Never done EXAM: BP 120/64 (BP Site: Left Arm, BP Position: Sitting, BP Cuff Size: Regular Adult) Pulse 72 Resp 16 Wt 78.2 kg (172 lb 6.4 oz) BMI 24.39 kg/m Pleasant well nourished, well groomed adult male in no acute distress. Alert and oriented all spheres. Normal affect and cognition. Speech normal. No deficits to learning or comprehension. Skin warm, dry, pale to lips and nailbeds. Normal turgor. Respirations regular and unlabored. HEENT: NCAT. No scleral icterus or conjunctival injection. TM's clear. Nose and oropharynx free from injection or lesion. Oral membranes moist and pink. No cervical lymph nodes. Thyroid non-tender, no masses, or enlargement. Carotids pulses 2+/4+ without bruits. No JVD with HOB at 30 degrees. Chest is normal shape. Lungs are clear to all beatty with good air exchange through out. HRRR without murmur or gallop. No lifts, heaves, or rubs. Abdomen: active bowel sounds throughout, soft, nontender, no masses or organomegaly. No CVAT. Extrem: no clubbing or cyanosis. Edema: none. Extremities are warm and pink with prompt capillary refill. ASSESSMENT/PLAN: 1. Hospital discharge follow-up - ICD9: V67.59, ICD10: Z09 (primary diagnosis) Completed medication reconciliation Reviewed follow-up appointments: To see Dr. Moralez in 2 weeks from discharge, has appointment. 2. Gastrointestinal hemorrhage with hematemesis - ICD9: 578.0, ICD10: K92.0 - SUCRALFATE 1 GRAM TABLET - PANTOPRAZOLE 40 MG TABLET,DELAYED RELEASE - CBC - BASIC METABOLIC PNL 3. Silvia-Hare tear - ICD9: 530.7, ICD10: K22.6 - SUCRALFATE 1 GRAM TABLET - PANTOPRAZOLE 40 MG TABLET,DELAYED RELEASE 4. Acute gastric ulcer due to Helicobacter pylori - ICD9: 531.30, 041.86, ICD10: K25.3, B96.81 Treatment was not addressed in discharge notes: Will contact Dr. Moralez for instructions as to how he intends to proceed. I will be happy to initiate triple antibiotic therapy in the interim if he wishes. Copy of today's note will be sent. 5. Hiatal hernia - ICD9: 553.3, ICD10: K44.9 As above r 6. 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 8. S/P right coronary artery (RCA) stent placement - ICD9: V45.82, ICD10: Z95.5 Recommend caution with activity, progressive as tolerated. He is to be cautious until anemia resolves. Any issues which are similar to his initial admission to be reported immediately. - ISOSORBIDE MONONITRATE ER 30 MG TABLET,EXTENDED RELEASE 24 HR 9. Essential hypertension - ICD9: 401.9, ICD10: I10 - good control - Continue current medications - Recommended progressive regular aerobic exercise. - Recommend home blood pressure monitoring, to bring results in on next visit - Goal of BP <130/80 - LOSARTAN 100 MG TABLET - BASIC METABOLIC PNL 10. Bronchiectasis without complication (HCC) - ICD9: 494.0, ICD10: J47.9 Stable on medication 11. Chronic obstructive pulmonary disease, unspecified COPD type (HCC) - ICD9: 496, ICD10: J44.9 Stable 12. Mixed hyperlipidemia - ICD9: 272.2, ICD10: E78.2 - good control - Continue current medication. - Encouraged following a low fat, low cholesterol diet. - Discussed the benefits of regular aerobic exercise and weight loss. As above follow-up lab in 2 weeks, otherwise follow-up in office 6 weeks. Silverio Ponce PA-C documented in this encounter [facility] 02-11-2022 Miscellaneous Notes Pt notified of provider message. He is agreeable with plan. Needs to go to ER. Likely internal bleeding in GI tract. Needs immediate evaluation. Thanks, Yves Ponce PA-C Pt states provider wanted him to call in and update him on issues from previous visit. He states with the decker's palsy that everything is coming back. Pt reports that this weekend on Friday he went to [employer] had a sandwich and went home. He states he had 3 episodes of black emesis and black stringy diarrhea, like it was old blood. Pt was asked if her went to the ER this weekend and he said no, but I probably should have. He says he had a fever and headache for 2 days and had felt dizzy/faint. Now Pt reports his fingertips, hands, and feet are cold and fingertips and hands feel like they are going to sleep. Pt denies dizziness, abdominal pain, esophageal pain, vomiting or diarrhea, fever. Pts BP was 136/85 HR 92. Pt states he feels a little weak when up and doing things, but states he just feels out of it and like things aren't normal. Pt wanted an appointment with Madeline TRAN, was told the first appointment he has would be tomorrow. Let Pt know that he probably wouldn't want him to wait that long to be seen. Please call and advise. documented in this encounter [facility] 02-08-2022 Miscellaneous Notes Form faxed to number as listed Completed and sent to nursing desk Thanks, Yves Ponce PA-C Patient has been identified by name and date of : Yes Type of form: FMLA Form received via: Walk in When form is completed, fax to at [phone] Form has been forwarded to: Yves Miranda Ma documented in this encounter [facility] 01-11-2022 History of Present illness Narrative POPULATION HEALTH NAVIGATION OUTREACH Action/FYI Patent due for Annual Wellness exam, AD and Flu Vaccine left message on machine to return call Pt identified by name and : NO Outreach Outcome/Action Unable to reach patient: Left message Did you use a PCP flex slot to schedule this appointment? N/A Reason for Outreach Care Gap or Scheduling/Wellness visits Payer: Payor: [employer] MEDICARE / Plan: [employer] / Product Type: HMO / Care Gap Reviewed:: Annual Wellness visit Flu vaccine Reminder: Reminder note to check Health Maintenance for items below Health Maintenance items due: ABDOMINAL AORTIC ANEURYSM SCREENING Never done COVID-19 VACCINE(1) Never done PNEUMOCOCCAL: 65+(1 - PCV) Never done SPIROMETRY Never done HEPATITIS C SCREENING Never done ALPHA-1 ANTITRYPSIN DEFICIENCY SCREENING Never done SHINGRIX VACCINE(1 of 2) Never done ADVANCE DIRECTIVE DISCUSSION Never done INFLUENZA(1) due on 01/10/2022 Message Sent to Practice: No Navigation Signature: Tiffanie Pappas Population Health Navigator January 11, 2022 8:21 AM documented in this encounter [facility] 10-28-2021 Miscellaneous Notes Phoned again today. Advised UC E. Coli. He is feeling much better. Advised on d-dimer. States he said SOB to make sure he got in- former issues with right chest pain resolved, not SOB or coughing. Yves Ponce PA-C documented in this encounter [facility] 10-19-2021 Instructions Silverio Ponce PA-C - 10/19/2021 4:35 PM EDT Chest pain: When to seek help If you have chest pain that is new, severe, prolonged, or if chest pain causes concern, call 911 immediately. The emergency medical services (EMS) personnel in your community are prepared to respond rapidly, and will take you to the nearest hospital. For a patient having a heart attack, every minute is important. Remember, the faster you get to a hospital, the sooner you can receive treatment. Do not drive yourself to the hospital and do not ask someone else to drive you. Calling 911 is safer than driving for two reasons: From the moment EMS personnel arrive, they can begin evaluating and treating chest pain. If you drive to the hospital, treatment cannot begin until you arrive in the emergency department. If a dangerous complication of a heart attack (eg, a serious irregular heart rhythm) occurs on the way to the hospital, EMS personnel are trained to treat the problem immediately. While waiting for the squad, rest sitting or laying down and try to remain calm. If you are not allergic: chew 4 Baby Aspirin or 2 adult aspirin. Aspirin has been shown to reduce incidence and severity with heart attacks. documented in this encounter [facility] 10-19-2021 Nurse Note True bp Average 137/76 72 manual 180/80 72 1.146/77 72 2.) 137/77 69 3.) 144/80 74 4.) 166/72 81 5.) 136/77 74 6.) 147/77 65 documented in this encounter [facility] 10-19-2021 History of Present illness Narrative Radiology Service Progress Note PATIENT NAME: Yariel Holder DATE OF SERVICE: October 19, 2021 TIME: 4:18 PM PATIENT IDENTITY VERIFICATION COMPLETED USING TWO (2) IDENTIFIERS: Name and Date of confirmed by patient verbally. FALL SCREENING: Has the patient had 2 falls in the last year or 1 fall with injury or currently using an Ambulatory Assistive Device (Walker, Cane, Wheelchair, Crutches, etc.)? No PATIENT GENDER DATA: Male PATIENT RELEVANT IMPLANT DATA REVIEWED: Not Applicable RADIOLOGY DEPARTMENT: General X-ray: Exam(s) Completed: Chest X-Ray PERIPHERAL IV DATA: Not applicable SIGNED BY: RT Pedro Pablo(R) October 19, 2021 4:18 PM documented in this encounter [facility] 10-19-2021 History of Present illness Narrative 71 year old male with c/o heart issues Notes over last 2 weeks sharp pain in right chest which radiates downward mid clavicular line to ribs, 2-3/10, burning, 4-5 sec and gone. Not anything like anginal pain previously. Started suddenly without other sx. Notes often red in the face SOB, more labored with activity but not asscoiated with above pain. Notes lightheadedness if stand up too fast. 3-4 weeks ago worked nights and forgot to take Brillanta about every third day, a couple times a few days in a row. Not working now and taking medications daily S/p right coronary artery (rca) stent placement (primary encounter diagnosis) Essential hypertension Mixed hyperlipidemia Cardiovascular interval hx: [facility] Dr. 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 LM 30%, LAD < 30%, CX mild, RCA 95% with collateral flow; PTCA with drug illuting stents RCA prox 3.0x16mm prometheus Synergy 90-0%; mid RCA 2.5 x 38mm Prometheus Synergy, 75-0%. No dissections. ASA lifelong, PLavix x 12 months noted but started on Brilinta on discharge. 06/19/18 EKG NSR. Myocardial perfusion stress test: 76% predicted heart rate with inferior ST changes without chest pain, EF 52% Current meds: Carvedilol 3.125 mg twice daily with meals Brilinta 90 mg 1 tablet twice daily? ASA 81 mg daily Lisinopril 10 mg daily Nitroglycerin 0.4 mg sublingual as needed Use of NTG: No Chest pain, arm, jaw pain, neck, or upper back pain suggestive of angina: as above. SOB: Yes Dyspnea with exertion: No orthopnea: No racing or irregular heartbeats: No palpitations: No syncopal sx: No Unexplainable fatigue No Leg swelling: No Nausea: No diaphoresis: No Heartburn: No Claudication: No Smoking: Yes Following Low cholesterol, high fiber diet? some If on statin: muscle aches? No If on statin: GI sx or diarrhea? No Additional history Has been taking 500mg niacin daily: gives him a big flush which he thinks is thinning his blood. Not currently smoking Chronic obstructive pulmonary disease, unspecified copd type (hcc) Bronchiectasis without complication (hcc) Follows [facility] Dr. Ryan/ Bette Hernandez [facility] Lung Cancer screening Current medications: trelegy 1 inhalation daily Albuterol MDI Compliant with meds Worsening shortness of breath: As above. Cough: No. Wheezing: No. Smoking: No. Compliant with medications: Yes. Using rescue inhaler 0 times per week. HISTORIES FAMILY HISTORY Problem Relation Age of Onset No Ocular Disease Father Alcohol/Drug Father Cataract Mother Diabetes Mother PAST MEDICAL HISTORY Diagnosis Date HLD (hyperlipidemia) HTN (hypertension) Pneumothorax on left 12/09/2016 small apical associated with trauma multiple rib fractures RSV (acute bronchiolitis due to respiratory syncytial virus) 05/19/2017 admitted through ED with SOB, cough, hypoxia SaO2 82%. CXR hyperinflation. Tx duonebs, IV Solu Medrol. discharged 05/21/17 on prednison taper SVT (supraventricular tachycardia) (HCC) occurred following chest trauma with multiple rib fractures Tobacco use disorder PAST SURGICAL HISTORY Procedure Laterality Date EXTRACTION ERUPTED TOOTH full dental extraction REMOVAL OF TONSILS,<12 Y/O Tonsillectomy REMV CATARACT EXTRACAP,INSERT LENS Right 06/17/[address] 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 60 tablet 5 famotidine (PEPCID) 20 mg tablet Take 1 tablet by mouth twice daily. 60 tablet 5 albuterol HFA (VENTOLIN HFA) 90 mcg/actuation inhaler Inhale 2 Puffs as instructed every 4 hours as needed for Wheezing/Shortness of Breath. 1 Inhaler 1 BRILINTA 90 mg tablet Take 1 tablet by mouth twice daily. triamcinolone acetonide (KENALOG) 0.1 % cream Apply 1 application to affected area twice daily. (Patient not taking: Reported on 11/19/2019 ) 30 g 2 aspirin, enteric coated (ASPIRIN, ENTERIC COATED) 81 mg EC tablet Take 81 mg by mouth once daily. Cholecalciferol, Vitamin D3, (VITAMIN D) 1,000 unit cap Take 1,000 Units by mouth once daily. atorvastatin (LIPITOR) 40 mg tablet Take 40 mg by mouth once daily. lisinopril (ZESTRIL, PRINIVIL) 10 mg tablet Take 10 mg by mouth once daily. nitroglycerin sublingual (NITROQUICK) 0.4 mg SL tablet Dissolve 0.4 mg under the tongue every 5 minutes as needed. CYANOCOBALAMIN, VITAMIN B-12, (VITAMIN B-12 ORAL) Take by mouth once daily. VIT A/C/E AC/ZNOX/CUPRIC OXIDE (EYE VITAMIN AND MINERALS ORAL) Take by mouth once daily. EPINEPHrine (EPIPEN 2-SIDNEY) 0.3 mg/0.3 mL auto-injector Inject 0.3 mL intramuscularly as needed. 1 Each 0 multivitamin (DAILY VITAMIN) tablet Take 1 tablet by mouth once daily. No current facility-administered medications for this visit. ABDOMINAL AORTIC ANEURYSM SCREENING Never done COVID-19 VACCINE(1) Never done HEPATITIS C SCREENING Never done BP CONTROLLED (<130/80) Never done DTAP,TDAP,TD(1 - Tdap) Never done SHINGRIX VACCINE(1 of 2) Never done PNEUMOCOCCAL: 65+(1 - PCV) Never done DEPRESSION SCREENING due on 07/08/2019 ADVANCE DIRECTIVE DISCUSSION Never done ANNUAL PCP TEAM CHRONIC DISEASE VISIT due on 05/23/2021 DIABETES SCREEN due on 07/07/2021 EXAM: BP 180/80 (BP Site: Left Arm, BP Position: Sitting, BP Cuff Size: Regular Adult) Pulse 72 Resp 16 Wt 79 kg (174 lb 3.2 oz) BMI 24.64 kg/m BP w/Orthostatic Vitals Date and Time Orthostatic BP Orthostatic Pulse BP Pulse BP Position BP Site BP Cuff Size 10/19/21 1611 -- -- 137/76 72 Sitting Left Arm Regular Adult 10/19/21 1523 -- -- 162/92 -- Sitting Left Arm Regular Adult 10/19/21 1442 -- -- 180/80 72 Sitting Left Arm Regular Adult Peak Flow Date and Time PF Resp 10/19/21 1442 -- 16 Pleasant well appearing adult man in no acute distress. Alert and oriented all spheres. Normal affect and cognition. Speech normal. No deficits to learning or comprehension. Skin warm, dry, pink to lips and nailbeds. Normal turgor. Respirations regular and unlabored. Speaking in full sentences. No retractions HEENT: NCAT. No scleral icterus or conjunctival injection. TM's clear. Nose and oropharynx free from injection or lesion. Oral membranes moist and pink. No cervical lymph nodes. Thyroid non-tender, no masses, or enlargement. Carotids pulses 2+/4+ without bruits. No JVD with HOB at 30 degrees. Chest is normal shape. Lungs are clear to all beatty with good air exchange through out. HRRR without murmur or gallop. No lifts, heaves, or rubs. Abd: flat, soft, Active bowel sounds x 4 quads. No pulsatile masses. Extremely tender epigastric superficially at base of xyphoid and over small diastasis recti. Jerks on even light touch over the area. No rebound, guarding, or peritoneal signs. No masses. No organomegaly. Richardosn's punch: negative. No flank pain. No inguinal or axillary lymphadenopathy. Extrem: no clubbing or cyanosis. Edema: none. Extremities are warm and pink with prompt capillary refill. EKG: NSR 64bpm normal axes except t -75 without injury pattern pending cardiology review CXR: No acute abnormalities pending radiology review ASSESSMENT/PLAN: 1. S/P right coronary artery (RCA) stent placement - ICD9: V45.82, ICD10: Z95.5 (primary diagnosis) Stable 2. Essential hypertension - ICD9: 401.9, ICD10: I10 - good control - factors affecting control of BP include white coat HTN, anxiety over sx. - Continue current medication(s) - Recommended regular aerobic exercise. - Recommend home blood pressure monitoring, to bring results in on next visit - Goal of BP <130/80 - CBC - COMP METABOLIC PANEL 3. Mixed hyperlipidemia - ICD9: 272.2, ICD10: E78.2 - good control - Continue current medication. 4. Right-sided chest pain - ICD9: 786.50, ICD10: R07.9 Atypical chest pain, symptoms are not consistent with cardiac ischemia due to localization of the pain possible etiology include Costochondritis/chest wall pain, musculoskeletal, Anxiety and PE (doubt) - Electrocardiogram - XR CHEST 2V FRONTAL/LAT - ECG COMPLETE - D-DIMER - MAGNESIUM BLD 5. Chronic obstructive pulmonary disease, unspecified COPD type (HCC) - ICD9: 496, ICD10: J44.9 stable 6. 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 08/11/2017 08/25/2017 Acute respiratory failure with hypoxia 8 08/25/2017 Overview: 05/19/17- 05/21/17 admit for hypoxia from RSV, COPD exacerbation Fracture of multiple ribs of left side with rout ine healing 12/17/2016 01/31/2022 Closed fracture of interligamentous part of left clavicle 12/17/2016 08/25/2017 Chronic respiratory failure with hypoxia 017 08/25/2017 Tobacco dependence 12/17/2016 08/25/2017 S/P cataract extraction and insertion of intraoc ular lens 07/02/2016 08/25/2017 documented as of this encounter (statuses as of 02/08/2022) [facility] History of Past illness Narrative* Problem Noted Date Resolved Date SOB (shortness of breath) 11/19/20192021 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 08/13/2017 01/31/2022 Overview: Added automatically from request for surgery [id number] 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 08/11/2017 08/25/2017 Acute respiratory failure with hypoxia 8 08/25/2017 Overview: 05/19/17- 05/21/17 admit for hypoxia from RSV, COPD exacerbation Fracture of multiple ribs of left side with rout ine healing 12/17/2016 01/31/2022 Closed fracture of interligamentous part of left clavicle 12/17/2016 08/25/2017 Chronic respiratory failure with hypoxia 017 08/25/2017 Tobacco dependence 12/17/2016 08/25/2017 S/P cataract extraction and insertion of intraoc ular lens 07/02/2016 08/25/2017 documented as of this encounter (statuses as of 02/11/2022) [facility] History of Past illness Narrative* Problem Noted Date Resolved Date SOB (shortness of breath) 11/19/20192021 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 08/13/2017 01/31/2022 Overview: Added automatically from request for surgery [id number] 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 08/11/2017 08/25/2017 Acute respiratory failure with hypoxia 8 08/25/2017 Overview: 05/19/17- 05/21/17 admit for hypoxia from RSV, COPD exacerbation Fracture of multiple ribs of left side with rout ine healing 12/17/2016 01/31/2022 Closed fracture of interligamentous part of left clavicle 12/17/2016 08/25/2017 Chronic respiratory failure with hypoxia 017 08/25/2017 Tobacco dependence 12/17/2016 08/25/2017 S/P cataract extraction and insertion of intraoc ular lens 07/02/2016 08/25/2017 documented as of this encounter (statuses as of 02/19/2022) [facility] History of Past illness Narrative* Problem Noted Date Resolved Date SOB (shortness of breath) 11/19/20192021 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 08/13/2017 01/31/2022 Overview: Added automatically from request for surgery [id number] 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 08/11/2017 08/25/2017 Acute respiratory failure with hypoxia 8 08/25/2017 Overview: 05/19/17- 05/21/17 admit for hypoxia from RSV, COPD exacerbation Fracture of multiple ribs of left side with rout ine healing 12/17/2016 01/31/2022 Closed fracture of interligamentous part of left clavicle 12/17/2016 08/25/2017 Chronic respiratory failure with hypoxia 017 08/25/2017 Tobacco dependence 12/17/2016 08/25/2017 S/P cataract extraction and insertion of intraoc ular lens 07/02/2016 08/25/2017 documented as of this encounter (statuses as of 02/25/2022) [facility] of Past illness Narrative* Problem Noted Date Resolved Date SOB (shortness of breath) 11/19/20192021 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 08/13/2017 01/31/2022 Overview: Added automatically from request for surgery [id number] 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 08/11/2017 08/25/2017 Acute respiratory failure with hypoxia 8 08/25/2017 Overview: 05/19/17- 05/21/17 admit for hypoxia from RSV, COPD exacerbation Fracture of multiple ribs of left side with rout ine healing 12/17/2016 01/31/2022 Closed fracture of interligamentous part of left clavicle 12/17/2016 08/25/2017 Chronic respiratory failure with hypoxia 017 08/25/2017 Tobacco dependence 12/17/2016 08/25/2017 S/P cataract extraction and insertion of intraoc ular lens 07/02/2016 08/25/2017 documented as of this encounter (statuses as of 03/04/2022) [facility] Past illness Narrative* Problem Noted Date Resolved Date SOB (shortness of breath) 11/19/20192021 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 08/13/2017 01/31/2022 Overview: Added automatically from request for surgery [id number] 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 08/11/2017 08/25/2017 Acute respiratory failure with hypoxia 8 08/25/2017 Overview: 05/19/17- 05/21/17 admit for hypoxia from RSV, COPD exacerbation Fracture of multiple ribs of left side with rout ine healing 12/17/2016 01/31/2022 Closed fracture of interligamentous part of left clavicle 12/17/2016 08/25/2017 Chronic respiratory failure with hypoxia 017 08/25/2017 Tobacco dependence 12/17/2016 08/25/2017 S/P cataract extraction and insertion of intraoc ular lens 07/02/2016 08/25/2017 documented as of this encounter (statuses as of 03/07/2022) [facility] Past illness Narrative* Problem Noted Date Resolved Date SOB (shortness of breath) 11/19/20192021 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 08/13/2017 01/31/2022 Overview: Added automatically from request for surgery [id number] 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 08/11/2017 08/25/2017 Acute respiratory failure with hypoxia 8 08/25/2017 Overview: 05/19/17- 05/21/17 admit for hypoxia from RSV, COPD exacerbation Fracture of multiple ribs of left side with rout ine healing 12/17/2016 01/31/2022 Closed fracture of interligamentous part of left clavicle 12/17/2016 08/25/2017 Chronic respiratory failure with hypoxia 017 08/25/2017 Tobacco dependence 12/17/2016 08/25/2017 S/P cataract extraction and insertion of intraoc ular lens 07/02/2016 08/25/2017 documented as of this encounter (statuses as of 04/01/2022) [facility] History of Past illness Narrative* Problem Noted Date Resolved Date SOB (shortness of breath) 11/19/20192021 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 08/13/2017 01/31/2022 Overview: Added automatically from request for surgery [id number] 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 08/11/2017 08/25/2017 Acute respiratory failure with hypoxia 8 08/25/2017 Overview: 05/19/17- 05/21/17 admit for hypoxia from RSV, COPD exacerbation Fracture of multiple ribs of left side with rout ine healing 12/17/2016 01/31/2022 Closed fracture of interligamentous part of left clavicle 12/17/2016 08/25/2017 Chronic respiratory failure with hypoxia 017 08/25/2017 Tobacco dependence 12/17/2016 08/25/2017 S/P cataract extraction and insertion of intraoc ular lens 07/02/2016 08/25/2017 documented as of this encounter (statuses as of 04/05/2022) [facility] Past illness Narrative* Problem Noted Date Resolved Date SOB (shortness of breath) 11/19/20192021 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 08/13/2017 01/31/2022 Overview: Added automatically from request for surgery [id number] 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 08/11/2017 08/25/2017 Acute respiratory failure with hypoxia 8 08/25/2017 Overview: 05/19/17- 05/21/17 admit for hypoxia from RSV, COPD exacerbation Fracture of multiple ribs of left side with rout ine healing 12/17/2016 01/31/2022 Closed fracture of interligamentous part of left clavicle 12/17/2016 08/25/2017 Chronic respiratory failure with hypoxia 017 08/25/2017 Tobacco dependence 12/17/2016 08/25/2017 S/P cataract extraction and insertion of intraoc ular lens 07/02/2016 08/25/2017 documented as of this encounter (statuses as of 04/09/2022) [facility] Past illness Narrative* Problem Noted Date Resolved Date SOB (shortness of breath) 11/19/20192021 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 08/13/2017 01/31/2022 Overview: Added automatically from request for surgery [id number] 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 08/11/2017 08/25/2017 Acute respiratory failure with hypoxia 8 08/25/2017 Overview: 05/19/17- 05/21/17 admit for hypoxia from RSV, COPD exacerbation Fracture of multiple ribs of left side with rout ine healing 12/17/2016 01/31/2022 Closed fracture of interligamentous part of left clavicle 12/17/2016 08/25/2017 Chronic respiratory failure with hypoxia 017 08/25/2017 Tobacco dependence 12/17/2016 08/25/2017 S/P cataract extraction and insertion of intraoc ular lens 07/02/2016 08/25/2017 documented as of this encounter (statuses as of 04/23/2022) [facility] Past illness Narrative* Problem Noted Date Resolved Date SOB (shortness of breath) 11/19/20192021 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 08/13/2017 01/31/2022 Overview: Added automatically from request for surgery [id number] 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 08/11/2017 08/25/2017 Acute respiratory failure with hypoxia 8 08/25/2017 Overview: 05/19/17- 05/21/17 admit for hypoxia from RSV, COPD exacerbation Fracture of multiple ribs of left side with rout ine healing 12/17/2016 01/31/2022 Closed fracture of interligamentous part of left clavicle 12/17/2016 08/25/2017 Chronic respiratory failure with hypoxia 017 08/25/2017 Tobacco dependence 12/17/2016 08/25/2017 S/P cataract extraction and insertion of intraoc ular lens 07/02/2016 08/25/2017 documented as of this encounter (statuses as of 04/30/2022) [facility] Past illness Narrative* Problem Noted Date Resolved Date SOB (shortness of breath) 11/19/20192021 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 08/13/2017 01/31/2022 Overview: Added automatically from request for surgery [id number] 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 08/11/2017 08/25/2017 Acute respiratory failure with hypoxia 8 08/25/2017 Overview: 05/19/17- 05/21/17 admit for hypoxia from RSV, COPD exacerbation Fracture of multiple ribs of left side with rout ine healing 12/17/2016 01/31/2022 Closed fracture of interligamentous part of left clavicle 12/17/2016 08/25/2017 Chronic respiratory failure with hypoxia 017 08/25/2017 Tobacco dependence 12/17/2016 08/25/2017 S/P cataract extraction and insertion of intraoc ular lens 07/02/2016 08/25/2017 documented as of this encounter (statuses as of 05/14/2022) [facility] History [facility] Past illness Narrative* Problem Noted Date Resolved Date SOB (shortness of breath) 11/19/20192021 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 08/13/2017 01/31/2022 Overview: Added automatically from request for surgery [id number] 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 08/11/2017 08/25/2017 Acute respiratory failure with hypoxia 8 08/25/2017 Overview: 05/19/17- 05/21/17 admit for hypoxia from RSV, COPD exacerbation Fracture of multiple ribs of left side with rout ine healing 12/17/2016 01/31/2022 Closed fracture of interligamentous part of left clavicle 12/17/2016 08/25/2017 Chronic respiratory failure with hypoxia 017 08/25/2017 Tobacco dependence 12/17/2016 08/25/2017 S/P cataract extraction and insertion of intraoc ular lens 07/02/2016 08/25/2017 documented as of this encounter (statuses as of 05/27/2022) [facility] Past illness Narrative* Problem Noted Date Resolved Date SOB (shortness of breath) 11/19/20192021 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 08/13/2017 01/31/2022 Overview: Added automatically from request for surgery [id number] 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 08/11/2017 08/25/2017 Acute respiratory failure with hypoxia 8 08/25/2017 Overview: 05/19/17- 05/21/17 admit for hypoxia from RSV, COPD exacerbation Fracture of multiple ribs of left side with rout ine healing 12/17/2016 01/31/2022 Closed fracture of interligamentous part of left clavicle 12/17/2016 08/25/2017 Chronic respiratory failure with hypoxia 017 08/25/2017 Tobacco dependence 12/17/2016 08/25/2017 S/P cataract extraction and insertion of intraoc ular lens 07/02/2016 08/25/2017 documented as of this encounter (statuses as of 07/25/2022) [facility] of Past illness Narrative* Problem Noted Date Diagnosed Date Resolved Date SOB (shortness of breath) 11/19/2019 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 08/13/2017 01/31/2022 Overview: Added automatically from request for surgery [id number] 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 08/11/2017 08/25/2017 Acute respiratory failure with hypoxia 05/23/2017 08/25/2017 Overview: 05/19/17- 05/21/17 admit for hypoxia from RSV, COPD exacerbation Fracture of multiple ribs of left side with routine healing 12/17/2016 01/31/2022 Closed fracture of interliga mentous part of left clavicle 12/17/2016 08/25/2017 Chronic respiratory failure with hypoxia 12/17/2016 08/25/2017 Tobacco dependence 12/17/2016 8 S/P cataract extraction and insertion of intraocular lens 07/02/2016 08/25/2017 documented as of this encounter (statuses as of 04/08/2023) [facility] Past illness Narrative* Problem Noted Date Diagnosed Date Resolved Date SOB (shortness of breath) 11/19/2019 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 08/13/2017 01/31/2022 Overview: Added automatically from request for surgery [id number] 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 08/11/2017 08/25/2017 Acute respiratory failure with hypoxia 05/23/2017 08/25/2017 Overview: 05/19/17- 05/21/17 admit for hypoxia from RSV, COPD exacerbation Fracture of multiple ribs of left side with routine healing 12/17/2016 01/31/2022 Closed fracture of interliga mentous part of left clavicle 12/17/2016 08/25/2017 Chronic respiratory failure with hypoxia 12/17/2016 08/25/2017 Tobacco dependence 12/17/2016 8 S/P cataract extraction and insertion of intraocular lens 07/02/2016 08/25/2017 documented as of this encounter (statuses as of 04/09/2023) [facility] Past [facility] Narrative* Problem Noted Date Diagnosed Date Resolved Date SOB (shortness of breath) 11/19/2019 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 08/13/2017 01/31/2022 Overview: Added automatically from request for surgery [id number] 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 08/11/2017 08/25/2017 Acute respiratory failure with hypoxia 05/23/2017 08/25/2017 Overview: 05/19/17- 05/21/17 admit for hypoxia from RSV, COPD exacerbation Fracture of multiple ribs of left side with routine healing 12/17/2016 01/31/2022 Closed fracture of interliga mentous part of left clavicle 12/17/2016 08/25/2017 Chronic respiratory failure with hypoxia 12/17/2016 08/25/2017 Tobacco dependence 12/17/2016 8 S/P cataract extraction and insertion of intraocular lens 07/02/2016 08/25/2017 documented as of this encounter (statuses as of 04/11/2023) [facility] Past illness Narrative* Problem Noted Date Diagnosed Date Resolved Date SOB (shortness of breath) 11/19/2019 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 08/13/2017 01/31/2022 Overview: Added automatically from request for surgery [id number] 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 08/11/2017 08/25/2017 Acute respiratory failure with hypoxia 05/23/2017 08/25/2017 Overview: 05/19/17- 05/21/17 admit for hypoxia from RSV, COPD exacerbation Fracture of multiple ribs of left side with routine healing 12/17/2016 01/31/2022 Closed fracture of interliga mentous part of left clavicle 12/17/2016 08/25/2017 Chronic respiratory failure with hypoxia 12/17/2016 08/25/2017 Tobacco dependence 12/17/2016 8 S/P cataract extraction and insertion of intraocular lens 07/02/2016 08/25/2017 documented as of this encounter (statuses as of 04/11/2023) [facility] of Past illness Narrative* Problem Noted Date Resolved Date 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 08/11/2017 08/25/2017 Acute respiratory failure with hypoxia 8 08/25/2017 Overview: 05/19/17- 05/21/17 admit for hypoxia from RSV, COPD exacerbation Closed fracture of interligamentous part of left clavicle 12/17/2016 08/25/2017 Chronic respiratory failure with hypoxia 017 08/25/2017 Tobacco dependence 12/17/2016 08/25/2017 S/P cataract extraction and insertion of intraoc ular lens 07/02/2016 08/25/2017 documented as of this encounter (statuses as of 10/25/2021) [facility] Past illness Narrative* Problem Noted Date Resolved Date 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 08/11/2017 08/25/2017 Acute respiratory failure with hypoxia 8 08/25/2017 Overview: 05/19/17- 05/21/17 admit for hypoxia from RSV, COPD exacerbation Closed fracture of interligamentous part of left clavicle 12/17/2016 08/25/2017 Chronic respiratory failure with hypoxia 017 08/25/2017 Tobacco dependence 12/17/2016 08/25/2017 S/P cataract extraction and insertion of intraoc ular lens 07/02/2016 08/25/2017 documented as of this encounter (statuses as of 10/28/2021) [facility] Past [facility] Narrative* Problem Noted Date Resolved Date 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 08/11/2017 08/25/2017 Acute respiratory failure with hypoxia 8 08/25/2017 Overview: 05/19/17- 05/21/17 admit for hypoxia from RSV, COPD exacerbation Closed fracture of interligamentous part of left clavicle 12/17/2016 08/25/2017 Chronic respiratory failure with hypoxia 017 08/25/2017 Tobacco dependence 12/17/2016 08/25/2017 S/P cataract extraction and insertion of intraoc ular lens 07/02/2016 08/25/2017 documented as of this encounter (statuses as of 01/11/2022) [facility] S/P right coronary artery (RCA) stent placement- Primary Essential hypertension Unspecified essential hypertension Mixed hyperlipidemia Right-sided chest pain Chronic obstructive pulmonary disease, unspecified COPD type (HCC) Bronchiectasis without complication (HCC) Bronchiectasis without acute exacerbation [facility] Diagnosis Onset Date Resolution Status COPD (chronic obstructive pulmonary disease) chronic Stopped smoking with greater than 40 pack year history chronic [facility] Work Phone: Evaluation note* Diagnosis Onset Date Resolution Status COPD (chronic obstructive pulmonary disease) chronic Stopped smoking with greater than 40 pack year history chronic COPD (chronic obstructive pulmonary disease) chronic Stopped smoking with greater than 40 pack year history chronic [facility] Work Phone: Evaluation note* Diagnosis Onset Date Resolution Status COPD (chronic obstructive pulmonary disease) chronic Stopped smoking with greater than 40 pack year history chronic COPD (chronic obstructive pulmonary disease) chronic Stopped smoking with greater than 40 pack year history chronic GI bleed acute [facility] Work Phone: Evaluation note* Diagnosis Hospital discharge follow-up- Primary Other follow-up examination Gastrointestinal hemorrhage with hematemesis Silvia-Hare tear Gastroesophageal laceration-hemorrhage syndrome Acute gastric ulcer due to Helicobacter pylori Gastric ulcer, unspecified as acute or chronic, without mention of hemorrhage, perforation, or obstruction Hiatal hernia Diaphragmatic hernia without mention of obstruction or gangrene Blood loss anemia 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 S/P right coronary artery (RCA) stent placement Essential hypertension Unspecified essential hypertension Bronchiectasis without complication (HCC) Bronchiectasis without acute exacerbation Chronic obstructive pulmonary disease, unspecified COPD type (HCC) Mixed [facility]- Primary Pain in joint, pelvic region and thigh Trochanteric bursitis of left hip Enthesopathy of hip region Decker's palsy Blood 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 Personal history of other diseases of digestive system [facility] Left hip pain- Primary Pain in joint, pelvic region and thigh Trochanteric bursitis of left hip Enthesopathy of hip region [facility] Trochanteric bursitis of left hip- Primary Enthesopathy of hip region Left hip pain Pain in joint, pelvic region and thigh [facility] Trochanteric bursitis of left hip- Primary Enthesopathy of hip region Left hip pain Pain in joint, pelvic region and thigh [facility] Diagnosis Sinobronchitis- Primary Unspecified sinusitis (chronic) [facility] Diagnosis Trochanteric bursitis of left hip- Primary Enthesopathy of hip region Left hip pain Pain in joint, pelvic region and thigh [facility] Diagnosis Onset Date Resolution Status Atherosclerotic heart diseas e of [place] coronary artery without angina pectoris chronic Essential (primary) hypertension [facility] Work Phone: Evaluation note* Diagnosis Bronchiectasis without complication (HCC)- Primary Bronchiectasis without acute exacerbation Chronic obstructive pulmonary disease, unspecified COPD type (HCC) Essential hypertension Unspecified essential hypertension Mixed hyperlipidemia S/P right coronary artery (RCA) stent placement Screening for abdominal aortic aneurysm Screening for other and unspecified cardiovascular conditions Encounter for immunization Need for other specified prophylactic vaccination against single bacterial disease Special screening examination for viral disease Special screening examination for unspecified viral disease Encounter for Medicare annual wellness exam Routine general medical examination at a health care facility [facility] Screening for abdominal aortic aneurysm Screening for other and unspecified cardiovascular conditions [facility] Diagnosis Onset Date Resolution Status SOB (shortness of breath) on exertion acute Atherosclerotic heart diseas e of [place] coronary artery without angina pectoris chronic Essential (primary) hypertension [facility] Work Phone: Evaluation note* Diagnosis S/P right coronary artery (RCA) stent placement- Primary Essential hypertension Unspecified essential hypertension Mixed hyperlipidemia Bronchiectasis without complication (HCC) Bronchiectasis without acute exacerbation Chronic obstructive pulmonary disease, unspecified COPD type (HCC) Other emphysema (HCC) Other emphysema Screening for lung cancer Decker's palsy Trochanteric bursitis of left hip Enthesopathy of hip region [facility] Diagnosis Swollen lymph nodes- Primary Enlargement of lymph nodes Acute recurrent maxillary sinusitis Acute maxillary sinusitis [facility]* Diagnosis Recurrent acute serous otitis media of right ear- Primary Acute serous otitis media COPD with exacerbation (HCC) Obstructive chronic bronchitis with exacerbation [facility]* Diagnosis Acute upper respiratory infection- Primary Acute upper respiratory infections of unspecified site Essential hypertension Unspecified essential hypertension Left hip pain Pain in joint, pelvic region and thigh Trochanteric bursitis of left hip Enthesopathy of hip region [facility]* Diagnosis Acute upper respiratory infection- Primary Acute upper respiratory infections of unspecified site Essential hypertension Unspecified essential hypertension Right-sided chest pain [facility] Diagnosis Acute upper respiratory infection- Primary Acute upper respiratory infections of unspecified site Essential hypertension Unspecified essential hypertension Essential hypertension- Primary Unspecified essential hypertension Screening for depression Encounter for screening examination for other mental health and behavioral disorders Special screening examination for viral disease Special screening examination for unspecified viral disease Screening for lipid disorders Excessive thirst Polydipsia Pure hypercholesterolemia Pulmonary emphysema, unspecified emphysema type (HCC) S/P right coronary artery (RCA) stent placement Chronic obstructive pulmonary disease, unspecified COPD type (HCC) [facility]* Diagnosis Acute upper respiratory infection- Primary Acute upper respiratory infections of unspecified site Essential hypertension Unspecified essential hypertension Respiratory infection- Primary Other diseases of respiratory system, not elsewhere classified [facility] Diagnosis Acute upper respiratory infection- Primary Acute upper respiratory infections of unspecified site Essential hypertension Unspecified essential hypertension Influenza A- Primary Influenza with other respiratory manifestations Asthma with COPD with exacerbation (HCC) Chronic obstructive asthma with exacerbation [facility]* Diagnosis Acute upper respiratory infection- Primary Acute upper respiratory infections of unspecified site Essential hypertension Unspecified essential hypertension Essential hypertension Unspecified essential hypertension HLD (hyperlipidemia) Other and unspecified hyperlipidemia documented in this encounter [facility] for referral (narrative)* Outpatient Procedure (Routine) - Closed Specialty Diagnoses / Procedures Referred By Arias abarca [facility] Diagnoses S/P right coronary artery (RCA) stent placement Right-sided chest pain Procedures ECG COMPLETE ECG ROUTINE ECG W/LEAST 12 LDS W/I&R Silverio Ponce PA-C [address] [place] [address] [facility] [place] [address] [place] [id number] Referral ID Status Reason Start Date Expiration Date V isits Requested Visits Authorized [id number] Closed Auto-Generate d Referral 10/19/2021 10/19/2022 1 1 [facility] for referral (narrative)* Diagnostic Procedure Only (Routine) - Authorized Specialty Diagnoses / Procedures Referred By Arias abarca Referred To Contact US IMAGING Diagnoses Screening for abdominal aortic aneurysm Procedures US SCREENING FOR AAA (2017) US ABDOMINAL AORTA REAL TIME SCREEN STUDY AAA Silverio Ponce PA-C [address] [place] [address] Us Imaging [id number] Referral ID Status Reason Start Date Expiration Date Visits Requested Visits Authorized [id number] Authorized Auto-Generat ed Referral 3 05/06/2024 1 1 [facility] for referral (narrative)* Diagnostic Procedure Only (Routine) - Closed Specialty Diagnoses / Procedures Referred By Arias abarca Referred To Contact US IMAGING Diagnoses Screening for abdominal aortic aneurysm Procedures US SCREENING FOR AAA (2017) US ABDOMINAL AORTA REAL TIME SCREEN STUDY AAA Silverio Ponce PA-C [address] [place] [address] [place] [address] Referral ID Status Reason Start Date Expiration Date V isits Requested Visits Authorized [id number] Closed Auto-Generate d Referral 04/07/2023 05/06/2024 1 1 [facility] for referral (narrative)* Diagnostic Procedure Only (Routine) - Closed Specialty Diagnoses / Procedures Referred By Arias abarca Referred To Contact XR IMAGING Diagnoses Left hip pain Trochanteric bursitis of left hip Procedures XR HIP GENERAL 3V PELV/AP/LAT LEFT RADEX HIP UNILATERAL WITH PELVIS 2-3 VIEWS Silverio Ponce PA-C [address] [place] [address] [place] [address] Referral ID Status Reason Start Date Expiration Date V isits Requested Visits Authorized [id number] Closed Auto-Generate d Referral 04/01/2022 05/01/2023 1 1 [facility] for visit Narrative* Diagnostic Procedure Only (Routine) - Closed Specialty Diagnoses / Procedures Referred By Arias abarca Referred To Contact XR IMAGING Diagnoses Left hip pain Trochanteric bursitis of left hip Procedures XR HIP GENERAL 3V PELV/AP/LAT LEFT RADEX HIP UNILATERAL WITH PELVIS 2-3 VIEWS Silverio Ponce PA-C [address] [place] [address] [place] [address] Referral ID Status Reason Start Date Expiration Date V isits Requested Visits Authorized [id number] Closed Auto-Generate d Referral 04/01/2022 05/01/2023 1 1 [facility] Summary Purpose Family History No Family History Records Found Relationship Condition Age at Onset Recorded Date/T casandra mother Cerebrovascular accident (CVA) Unknown father Cardiac disease Unknown Advance Directives No Advanced Directives Records FoundDocuments on File Type Date Recorded Patient 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 January 27, 2022 10:19am Advance Directives No May 31, 2017 4:07am Living Will Yes January 27, 2022 10:19am Power of Insurance Broker Yes January 10:19am Advance Directive Response Recorded Date/ Time Name of Medical Power of Insurance Broker ? January 27, 2022 10:19am Advance Directives No May 31, 2017 4:07am Living Will No February 11 2:54pm Power of Insurance Broker No February 11 2:54pm Advance Directive Response Recorded Date/ Time Name of Medical Power of Insurance Broker ? January 27, 2022 10:19am Advance Directives No May 31, 2017 4:07am Living Will No February 11 6:21pm Power of Insurance Broker No February 11 6:21pm Advance Directive Response Recorded Date/ Time Advance Directives No May 31, 2017 4:07am Living Will No February 11 2 6:21pm Power of Insurance Broker No February 11 6:21pm Advance Directive Response Recorded Date/ Time Advance Directives on File No August 19, 2023 7:11am Name of Medical Power of Insurance Broker Elisa gonzalez August 19, 2023 7:11am Advance Directives Yes August 18 7:11am Living Will Yes August 19, 2023 7:11am Power of Insurance Broker Yes August 18 7:11am Chief Complaint and Reason for Visit Chief Complaint 6 M FU NICOTINE DEP Reason for Visit COPD (chronic obstru ctive pulmonary disease) Stopped smoking with greater than 40 pack year history Chief Complaint 6 M FU NICOTINE DEP neuro Reason for Visit COPD (chronic obstru ctive pulmonary disease) Stopped smoking with greater than 40 pack year history Chief Complaint 6 M FU NICOTINE DEP neuro 1 M FU ACUTE GI BLEED, ACUTE BLOOD LOSS, ANEMIA Reason for Visit COPD (chronic obstru ctive pulmonary disease) Stopped smoking with greater than 40 pack year history COPD (chronic obstructive pulmonary disease) Stopped smoking with greater than 40 pack year history Chief Complaint 6 M FU NICOTINE DEP neuro 1 M FU ACUTE GI BLEED, ACUTE BLOOD LOSS, ANEMIA ACUTE GI BLEED, ACUTE BLOOD LOSS, ANEMIA ACUTE GI BLEED, ACUTE BLOOD LOSS, ANEMIA ACUTE GI BLEED, ACUTE BLOOD LOSS, ANEMIA Reason for Visit COPD (chronic obstru ctive pulmonary disease) Stopped smoking with greater than 40 pack year history COPD (chronic obstructive pulmonary disease) Stopped smoking with greater than 40 pack year history GI bleed Chief Complaint OVERDUE FOLLOW UP CAD Coronary artery disease Reason for Visit Atherosclerotic hear t disease of [place] coronary artery without angina pectoris Essential (primary) hypertension Chief Complaint 9 M FU Reason for Visit SOB (shortness of br eath) on exertion Atherosclerotic heart disease of [place] coronary artery without angina pectoris Essential (primary) hypertension Chief Complaint 9 M FU ASHD Reason for Visit SOB (shortness of br eath) on exertion Atherosclerotic heart disease of [place] coronary artery without angina pectoris Essential (primary) hypertension Reason for Referral Specialty Diagnoses / Procedures Referred By Arias abarca Referred To Contact [facility] Diagnoses Left hip pain Trochanteric bursitis of left hip Procedures CONSULT TO PHYSICAL THERAPY PHYSICAL THERAPY EVALUATION HIGH COMPLEX 45 MINS Silverio Ponce PA-C [address] [place] [address] [facility] [address] [place] [id number] Referral ID Status Reason Start Date Expiration Date Visits Requested Visits Authorized [id number] Authorized Auto-Generat ed Referral 05/12/2021 05/11/2022 1 1 Specialty Diagnoses / Procedures Referred By Arias abarca Referred To Contact XR IMAGING Diagnoses Left hip pain Trochanteric bursitis of left hip Procedures XR HIP GENERAL 3V PELV/AP/LAT LEFT RADEX HIP UNILATERAL WITH PELVIS 2-3 VIEWS Silverio Ponce PA-C [address] [place] [address] X[facility] Imaging Referral ID Status Reason Start Date Expiration Date Visits Requested Visits Authorized [id number] Pending Review Auto-Generat ed Referral 2 05/01/2023 1 1 Specialty Diagnoses / Procedures Referred By Contac t Referred To Contact [facility] Diagnoses Left hip pain Trochanteric bursitis of left hip Procedures PT REHAB FOLLOW UP ORDER PT REHAB FOLLOW UP ORDER THERAPEUTIC EXERCISES RE, EA 15 MIN. Nick Houston PT [facility] [place] [address] [place] [address] Referral ID Status Reason Start Date Expiration Date Visits Requested Visits Authorized [id number] Pending Review PCP Requested Referral Auto-Generate d Referral 2 07/08/2022 1 1 Additional Source Comments (unrecognized sect ion and content) No Status Records FoundNo Status Records FoundNo Status Records FoundNo Status Records FoundNo Status Records Found INFORMATION SOURCE (unrecogn ized section and content) DATE CREATED AUTHOR 11/04/2017 [facility] ([place]) DATE CREATED AUTHOR AUTHOR'S ORGANIZ ATION 11/13/2017 [facility] DATE CREATED AUTHOR AUTHOR'S ORGANIZ ATION 06/21/2018 [facility] DATE CREATED AUTHOR AUTHOR'S ORGANIZ ATION 10/12/2024 [facility] DATE CREATED AUTHOR AUTHOR'S ORGANIZ ATION 10/14/2024 [facility] Source Comments (unrecognize d section and content) In the event this informatio n is protected by the Federal Confidentiality of Alcohol and Drug Abuse Patient Records regulations: The Federal rules restrict any use of the information to criminally investigate or prosecute any alcohol or drug abuse patient.[facility] event this information is protected by the Federal Confidentiality of Alcohol and Drug Abuse Patient Records regulations: The Federal rules restrict any use of the information to criminally investigate or prosecute any alcohol or drug abuse patient.[facility] the event this information is protected by the Federal Confidentiality of Alcohol and Drug Abuse Patient Records regulations: The Federal rules restrict any use of the information to criminally investigate or prosecute any alcohol or drug abuse patient.[facility] the event this information is protected by the Federal Confidentiality of Alcohol and Drug Abuse Patient Records regulations: The Federal rules restrict any use of the information to criminally investigate or prosecute any alcohol or drug abuse patient.[facility] the event this information is protected by the Federal Confidentiality of Alcohol and Drug Abuse Patient Records regulations: The Federal rules restrict any use of the information to criminally investigate or prosecute any alcohol or drug abuse patient.[facility] the event this information is protected by the Federal Confidentiality of Alcohol and Drug Abuse Patient Records regulations: The Federal rules restrict any use of the information to criminally investigate or prosecute any alcohol or drug abuse patient.[facility] the event this information is protected by the Federal Confidentiality of Alcohol and Drug Abuse Patient Records regulations: The Federal rules restrict any use of the information to criminally investigate or prosecute any alcohol or drug abuse patient.[facility] the event this information is protected by the Federal Confidentiality of Alcohol and Drug Abuse Patient Records regulations: The Federal rules restrict any use of the information to criminally investigate or prosecute any alcohol or drug abuse patient.[facility] the event this information is protected by the Federal Confidentiality of Alcohol and Drug Abuse Patient Records regulations: The Federal rules restrict any use of the information to criminally investigate or prosecute any alcohol or drug abuse patient.[facility] the event this information is protected by the Federal Confidentiality of Alcohol and Drug Abuse Patient Records regulations: The Federal rules restrict any use of the information to criminally investigate or prosecute any alcohol or drug abuse patient.[facility] the event this information is protected by the Federal Confidentiality of Alcohol and Drug Abuse Patient Records regulations: The Federal rules restrict any use of the information to criminally investigate or prosecute any alcohol or drug abuse patient.[facility] the event this information is protected by the Federal Confidentiality of Alcohol and Drug Abuse Patient Records regulations: The Federal rules restrict any use of the information to criminally investigate or prosecute any alcohol or drug abuse patient.[facility] the event this information is protected by the Federal Confidentiality of Alcohol and Drug Abuse Patient Records regulations: The Federal rules restrict any use of the information to criminally investigate or prosecute any alcohol or drug abuse patient.[facility] the event this information is protected by the Federal Confidentiality of Alcohol and Drug Abuse Patient Records regulations: The Federal rules restrict any use of the information to criminally investigate or prosecute any alcohol or drug abuse patient.[facility] the event this information is protected by the Federal Confidentiality of Alcohol and Drug Abuse Patient Records regulations: The Federal rules restrict any use of the information to criminally investigate or prosecute any alcohol or drug abuse patient.[facility] the event this information is protected by the Federal Confidentiality of Alcohol and Drug Abuse Patient Records regulations: The Federal rules restrict any use of the information to criminally investigate or prosecute any alcohol or drug abuse patient.[facility] the event this information is protected by the Federal Confidentiality of Alcohol and Drug Abuse Patient Records regulations: The Federal rules restrict any use of the information to criminally investigate or prosecute any alcohol or drug abuse patient.[facility] the event this information is protected by the Federal Confidentiality of Alcohol and Drug Abuse Patient Records regulations: The Federal rules restrict any use of the information to criminally investigate or prosecute any alcohol or drug abuse patient.[facility] the event this information is protected by the Federal Confidentiality of Alcohol and Drug Abuse Patient Records regulations: The Federal rules restrict any use of the information to criminally investigate or prosecute any alcohol or drug abuse patient.[facility] the event this information is protected by the Federal Confidentiality of Alcohol and Drug Abuse Patient Records regulations: The Federal rules restrict any use of the information to criminally investigate or prosecute any alcohol or drug abuse patient.[facility] the event this information is protected by the Federal Confidentiality of Alcohol and Drug Abuse Patient Records regulations: The Federal rules restrict any use of the information to criminally investigate or prosecute any alcohol or drug abuse patient.[facility] the event this information is protected by the Federal Confidentiality of Alcohol and Drug Abuse Patient Records regulations: The Federal rules restrict any use of the information to criminally investigate or prosecute any alcohol or drug abuse patient.[facility] the event this information is protected by the Federal Confidentiality of Alcohol and Drug Abuse Patient Records regulations: The Federal rules restrict any use of the information to criminally investigate or prosecute any alcohol or drug abuse patient.[facility] the event this information is protected by the Federal Confidentiality of Alcohol and Drug Abuse Patient Records regulations: The Federal rules restrict any use of the information to criminally investigate or prosecute any alcohol or drug abuse patient.[facility] the event this information is protected by the Federal Confidentiality of Alcohol and Drug Abuse Patient Records regulations: The Federal rules restrict any use of the information to criminally investigate or prosecute any alcohol or drug abuse patient.[facility] the event this information is protected by the Federal Confidentiality of Alcohol and Drug Abuse Patient Records regulations: The Federal rules restrict any use of the information to criminally investigate or prosecute any alcohol or drug abuse patient.[facility] the event this information is protected by the Federal Confidentiality of Alcohol and Drug Abuse Patient Records regulations: The Federal rules restrict any use of the information to criminally investigate or prosecute any alcohol or drug abuse patient.[facility] the event this information is protected by the Federal Confidentiality of Alcohol and Drug Abuse Patient Records regulations: The Federal rules restrict any use of the information to criminally investigate or prosecute any alcohol or drug abuse patient.[facility] the event this information is protected by the Federal Confidentiality of Alcohol and Drug Abuse Patient Records regulations: The Federal rules restrict any use of the information to criminally investigate or prosecute any alcohol or drug abuse patient.[facility] the event this information is protected by the Federal Confidentiality of Alcohol and Drug Abuse Patient Records regulations: The Federal rules restrict any use of the information to criminally investigate or prosecute any alcohol or drug abuse patient.[facility] the event this information is protected by the Federal Confidentiality of Alcohol and Drug Abuse Patient Records regulations: The Federal rules restrict any use of the information to criminally investigate or prosecute any alcohol or drug abuse patient.[facility] Reason for Visit (unrecogniz ed section and content) Reason Comments PT Progress Note Specialty Diagnoses / Procedures Referred By Contac t Referred To Contact [facility] Diagnoses Left hip pain Trochanteric bursitis of left hip Procedures PT REHAB FOLLOW UP ORDER PT REHAB FOLLOW UP ORDER THERAPEUTIC EXERCISES RE, EA 15 MIN. Silverio Ponce PA-C [address] [place] [address] [facility] [address] [place] [address] Referral ID Status Reason Start Date Expiration Date Visits Requested Visits Authorized [id number] Authorized PCP Requested Referral Auto-Generate d Referral 2 07/09/2022 6 6 Reason Comments Pain rt side of chest sha rp pains went down to abdomin then would go away started two weeks ago but then last week been every day off and on. Noticed it was when active . would sit down for a while would go away . Reason Comments Results Reason Onset Date Comments Population Health Navigation Outreach 01/11/2022 [employer] [facility] Gaps Reason Comments Forms FMLA Reason Comments Patient Update Appointment Reason Comments Hospital F/U Reason Comments Forms Reason Comments Patient Update Reason Comments Follow Up Reason Comments PT Eval Specialty Diagnoses / Procedures Referred By Analiaac t Referred To Contact [facility] Diagnoses Left hip pain Trochanteric bursitis of left hip Procedures CONSULT TO PHYSICAL THERAPY PHYSICAL THERAPY EVALUATION HIGH COMPLEX 45 MINS Silverio Ponce PA-C [address] [place] [address] [facility] [address] [place] [address] Referral ID Status Reason Start Date Expiration Date V isits Requested Visits Authorized [id number] Closed Auto-Generate d Referral 05/12/2021 05/11/2022 1 1 Reason Comments Physical Therapy Referral ID Status Reason Start Date Expiration Date Visits Requested Visits Authorized [id number] Authorized PCP Requested Referral Auto-Generate d Referral 2 05/11/2022 6 6 Reason Comments Sinus Problem cough, congestion an d sob x 6 days Reason Comments Refill Request Reason Comments Patient Question Reason Comments Radiology US Specialty Diagnoses / Procedures Referred By Contac t Referred To Contact US IMAGING Diagnoses Screening for abdominal aortic aneurysm Procedures US SCREENING FOR AAA (2017) US ABDOMINAL AORTA REAL TIME SCREEN STUDY AAA Silverio Ponce PA-C [address] [place] [address] [place] [address] Referral ID Status Reason Start Date Expiration Date V isits Requested Visits Authorized [id number] Closed Auto-Generate d Referral 04/07/2023 05/06/2024 1 1 Reason Comments Follow Up 6 month Reason Comments Mass Lump on right side o f neck for the last 3-4 days. Painful to touch Reason Comments Follow Up Swollen lymph nodes Reason Comments 6 Month Exam Transfer of care Reason Comments URI 5-6 days cough moist productive with clear to yellow sputumnasal drainage is clear with some congestionusually gets treated with amoxicillin and works well Care Teams (unrecognized sec tion and content) Hand Cultivator Relationship Specialty Start Date End Date Silverio Ponce PA-C [address] [place] [address] PCP - General Family Practice 02/13/16 Hand Cultivator Relationship Specialty Start Date End Date Silverio Ponce PA-C [address] [place] [address] PCP - General Family Practice 02/13/16 Hand Cultivator Relationship Specialty Start Date End Date Silverio Ponce PA-C [address] [place] [address] PCP - General Family Practice 02/13/16 Hand Cultivator Relationship Specialty Start Date End Date Silverio Ponce PA-C [address] [facility] [place] [address] PCP - General Family Medicine 02/13/16 Hand Cultivator Relationship Specialty Start Date End Date Silverio Ponce PA-C [address] [place] [address] PCP - General Family Medicine 02/13/16 Hand Cultivator Relationship Specialty Start Date End Date Silverio Ponce PA-C [address] [place] [address] PCP - General Family Medicine 02/13/16 Hand Cultivator Relationship Specialty Start Date End Date Silverio Ponce PA-C [address] [place] [address] PCP - General Family Medicine 02/13/16 Hand Cultivator Relationship Specialty Start Date End Date Silverio Ponce PA-C [address] [facility] [place] [address] PCP - General Family Medicine 02/13/16 Hand Cultivator Relationship Specialty Start Date End Date Silverio Ponce PA-C [address] [place] [address] PCP - General Family Medicine 02/13/16 Hand Cultivator Relationship Specialty Start Date End Date Silverio Ponce PA-C [address] [place] [address] PCP - General Family Medicine 02/13/16 Hand Cultivator Relationship Specialty Start Date End Date Silverio Ponce PA-C [address] [place] [address] PCP - General Family Medicine 02/13/16 Hand Cultivator Relationship Specialty Start Date End Date Silverio Ponce PA-C [address] [place] [address] PCP - General Family Medicine 02/13/16 Hand Cultivator Relationship Specialty Start Date End Date Silverio Ponce PA-C [address] [place] [address] PCP - General Family Medicine 02/13/16 Hand Cultivator Relationship Specialty Start Date End Date Silverio Ponce PA-C [address] [place] [address] PCP - General Family Medicine 02/13/16 Team Status: Active Member Role Status Dates MARC Diaz Family Provider Active Silverio TRAN PA Primary Care Provider Active Team Status: Inactive Member Role Status Dates MARC Diaz Primary Care Provider, Referri ng Provider Active Magda Lei CAMERA CONTROL OPERATOR, CAMERA CONTROL OPERATOR-C Attending Provider Active Team Status: Active Member Role Status Dates Silverio TRAN PA Primary Care Provider Active Magda Lei CAMERA CONTROL OPERATOR, CAMERA CONTROL OPERATOR-C Referring Provider, Other Provi trent Active Dr. Vinh Yuan MD Attending Provider Active Team Status: Inactive Member Role Status Dates MARC Diaz Primary Care Provider Active Magda Lei CAMERA CONTROL OPERATOR, CAMERA CONTROL OPERATOR-C Attending Provider, Referring Casey carranza Active Hand Cultivator Relationship Specialty Start Date End Date Silverio Ponce PA-C [address] [place] [address] PCP - General Family Medicine 02/13/16 Hand Cultivator Relationship Specialty Start Date End Date Silverio Ponce PA-C [address] [place] [address] PCP - General Family Medicine 02/13/16 Hand Cultivator Relationship Specialty Start Date End Date Silverio Ponce PA-C [address] [place] [address] PCP - General Family Medicine 02/13/16 Hand Cultivator Relationship Specialty Start Date End Date Silverio Ponce PA-C [address] [place] [address] PCP - General Family Medicine 02/13/16 Team Status: Inactive Member Role Status MARC Diaz Primary Care Provider, Referri ng Provider Active Dr. Vinh Yuan MD Attending Provider Active Team Status: Inactive Member Role Status MARC Diaz Primary Care Provider Active Dr. Vinh Yuan MD Attending Provider, Referring Pro vider Active Hand Cultivator Relationship Specialty Start Date End Date Silverio Ponce PA-C [address] [place] [address] PCP - General Family Medicine 02/13/16 Hand Cultivator Relationship Specialty Start Date End Date Silverio Ponce PA-C [address] [facility] [place] [address] PCP - General Family Medicine 02/13/16 Hand Cultivator Relationship Specialty Start Date End Date Silverio Ponce PA-C [address] [place] [address] PCP - General Family Medicine 02/13/16 Hand Cultivator Relationship Specialty Start Date End Date Silverio Ponce PA-C [address] [place] [address] PCP - General Family Medicine 02/13/16 Hand Cultivator Relationship Specialty Start Date End Date Anh Epps, RESIDENTIAL SUBCONTRACTOR.FUNDRAISING SALE REPRESENTATIVE [address] [place] [address] PCP - General Family Medicine 04/13/24 Hand Cultivator Relationship Specialty Start Date End Date Anh Epps, RESIDENTIAL SUBCONTRACTOR.FUNDRAISING SALE REPRESENTATIVE [address] [place] [address] PCP - General Family Medicine 04/13/24 Hand Cultivator Relationship Specialty Start Date End Date Anh Epps, RESIDENTIAL SUBCONTRACTOR.FUNDRAISING SALE REPRESENTATIVE [address] [place] [address] PCP - General Family Medicine 04/13/24 Hand Cultivator Relationship Specialty Start Date End Date Anh Epps, RESIDENTIAL SUBCONTRACTOR.FUNDRAISING SALE REPRESENTATIVE [address] [place] [address] PCP - General Family Medicine 04/13/24 Hand Cultivator Relationship Specialty Start Date End Date Anh Epps, RESIDENTIAL SUBCONTRACTOR.FUNDRAISING SALE REPRESENTATIVE [address] [place] [address] PCP - General Family Medicine 04/13/24 Goals (unrecognized section and content) Goals may be documented in a n alternate sectionGoals may be documented in an alternate sectionGoals may be documented in an alternate sectionGoals may be documented in an alternate sectionGoals may be documented in an alternate sectionGoals may be documented in an alternate section FOR RECORDS PERTAINING TO PATIENTS WHO ARE OR HAVE BEEN ENROLLED IN A CHEMICAL DEPENDENCY/SUBSTANCEABUSE PROGRAM, SOME INFORMATION MAY BE OMITTED. This clinical summary was aggregated from multiple sources. Caution should be exercised in using it in the provision of clinical care. This summary normalizes information from multiple sources, and as a consequence, information in this document may materially change the coding, format and clinical context of patient data. In addition, data may be omitted in some cases. CLINICAL DECISIONS SHOULD BE BASED ON THE PRIMARY CLINICAL RECORDS. [facility]. provides no warranty or guarantee of the accuracy or completeness of information in this document.
[2024-10-24 14:17] LABS: Anion Gap 12 (5-15); BUN 8 mg/dL (4-19); BUN/Creat Ratio 8.5 RATIO (10-20); Carbon Dioxide 25.3 mmol/L (21.0-32.0); Chloride 101 mmol/L (98-108); Creatinine, Serum 0.98 mg/dL (0.70-1.20); EST Glomerular Filtration Rate 81 (>60); Glucose 98 mg/dL (70-99); Potassium 3.9 mmol/L (3.3-5.1); Sodium Level 138 mmol/L (133-145)
--- NOTE | 2024-10-24 14:50 | CM.ED ---
Social Work Date of referral: 10/24/24 Reason for referral: Advanced Care Directives (ACD's not on file) Referred by: Social Work identification Patient provided consent to social work visit. Patient's at bedside. Head Of Housekeeping requested a copy of ACD's and patient refused. Patient stated his managing attorney has a copy and that his will know what his wishes are. Head Of Housekeeping attempted to provide verbal education which patient was not receptive to. No other needs/concerns noted at this time. Radha Khoury. SAIL LAY OUT WORKER, PERFORATOR
== END 2024-10-24 15:58 | disposition home or self-care (01) ==
PROVIDERS: Emergency Provider Emergency Medicine; PCP Physician Assistant; Visit Provider Emergency Medicine
DX: R06.02 Shortness of breath (principal); J44.9 Chronic obstructive pulmonary disease, unspecified; I49.1 Atrial premature depolarization; I10 Essential (primary) hypertension; I25.2 Old myocardial infarction; E78.5 Hyperlipidemia, unspecified; I25.10 Atherosclerotic heart disease of native coronary artery without angina pectoris; F17.210 Nicotine dependence, cigarettes, uncomplicated; Z95.5 Presence of coronary angioplasty implant and graft; Z79.51 Long term (current) use of inhaled steroids; Z79.82 Long term (current) use of aspirin; Z79.899 Other long term (current) drug therapy
CPT/HCPCS: 71045; 80048; 85025; 87631; 93005; 94640; 96374; 99284; A4216